=== PATIENT | male | born 1935 | race Caucasian/White ===

== ENCOUNTER → 2017-01-25 | Day surgery (SDC) | payer OTHER ==
[2017-01-24 15:16] VITALS: Ht 172.7 cm; Wt 79.5 kg
[~2017-01-25] VITALS: Ht 172.7 cm; Wt 79.5 kg
[~2017-01-25] MED LIST: AMIT25TA9 PO; ASPI81TA28 PO; BRIM0.2S OPR; INUL6.5C PO; LIDOCAINE HCL 2% 2 ML VIAL (20MG/ML) ONE; LISI10TA PO; OMEP40CA41 PO; PROPOFOL IV EMULSION 10 MG/ML 20 ML VIAL IV ONE; SODIUM CHLORIDE 0.9% 500ML 500 ML IV ONE
--- NOTE | 2017-01-25 13:12 | Endo History and Physical ---
History & Physical Date of Service: Jan 25, 2017. Chief Complaint: CHANGE IN STOOL CALIBER Referring Physician: DR. LOPEZ History of Present Illness change in stools Past Surgical History Hx Cardiac Surgery: No Hx Internal Defibrillator: No Hx Pacemaker: No Hx Abdominal Surgery: Yes (APPY) Hx of Implantable Prosthesis: No Hx Post-Op Nausea and Vomiting: No Hx Cancer Surgery: No Hx Thoracic Surgery: No Hx Orthopedic: Yes (LEFT QUAD REPAIR) Hx Urinary Tract Surgery: No Family History IBD Social History Smoking Status: Former Smoker Hx Substance Use: No Hx Alcohol Use: Yes (3 DRINKS OF GIN DAILY) Allergies Coded Allergies: Azithromycin (Verified Allergy, Unknown, FELT UNCOMFORTABLE WHEN TAKING, ) Sildenafil (Verified Allergy, Unknown, HEADACHE, 01/25/17) Current Medications Reported Home Medications Medications Dose Route/Sig Max Daily Dose Days Date Category Elavil (Amitriptyline Hcl) 25 Mg Tab 50 Mg PO HS 01/24/17 Reported Aspirin Ec (Aspirin) 81 Mg Tab 81 Mg PO QAM 03/16/14 Reported Prilosec (Omeprazole) 40 Mg Cap 40 Mg PO BID 03/16/14 Reported Prinivil (Lisinopril) 10 Mg Tab 10 Mg PO HS 12/15/12 Reported Combigan (Brimonidine Tartrate-Timolol M) 1 Lucie Lucie 1 Drop OPR BID 12/15/12 Reported Vital Signs Weight (Kilograms): 79.55 Height (Feet): 5 Height (Inches): 8 Date Time Temp Pulse Resp B/P Pulse Ox O2 Delivery O2 Flow Rate FiO2 01/25/17 12:53 36.7 57 16 160/87 95 Physical Exam General Appearance: no apparent distress Respiratory/Chest: Auscultation: breath sounds normal Cardiovascular: Heart Auscultation: RRR Abdomen: Liver: non-tender Assessment and Plan stable for colonoscopy
--- NOTE | 2017-01-25 13:32 | Discharge Instructions ---
Endoscopy Patient Instructions Date / Procedure(s) Performed Jan 25, 2017. Colonoscopy Allergy Information Coded Allergies: Azithromycin (Verified Allergy, Unknown, FELT UNCOMFORTABLE WHEN TAKING, ) Sildenafil (Verified Allergy, Unknown, HEADACHE, 01/25/17) Discharge Date / Findings Jan 25, 2017. diverticulosis otherwise normal Medication Instructions Stopped Medication(s): ASPIRIN 01/24/17 Provider Instructions Activity Restrictions - No exercising or heavy lifting for 24 hours. - Do not drink alcohol the day of the procedure. - Do not drive a car or operate machinery until the day after the procedure. - Do not make any important decisions or sign important papers in 24 hours after the procedure. Following Day: - Return to full activity which may include returning to work/school. Diet Start your diet with liquids and light foods (jello, soup, juice, toast). Then eat your usual diet if not nauseated. Treatment For Common After Affects For mild abdominal pain, bloating, or excessive gas: - Rest - Eat lightly - Lie on right side Follow-Up Information Follow-up with DR. LOPEZ as scheduled Anesthesia Information What You Should Know You have had a procedure that required some medicine to reduce anxiety and discomfort. This treatment is called moderate sedation. After receiving the treatment, you may be sleepy, but you will be able to breathe on your own. The effects of the treatment may last for several hours. Follow these instructions along with Activity/Diet recommendations noted above: * Do NOT do anything where dizziness or clumsiness would be dangerous. * Rest quietly at home today, then you can be up and about tomorrow. * Have a responsible person stay with you the rest of today. * You may have had an I.V. today. If so, you may take the dressing off later today. Recommendations Call your doctor if: * Trouble breathing * Continuous vomiting for more than 24 hours * Temperature above 101 degrees * Severe abdominal pain or bloating * Pain not relieved by pain medicine ordered * There is increased drainage or redness from any incision * A large amount of rectal bleeding greater than 2-3 tablespoons. (If you had a polyp/s removed or have hemorrhoids, a small amount of blood - from the rectum is to be expected.) * You have any unanswered questions or concerns. IN THE EVENT OF A SERIOUS EMERGENCY, GO TO THE NEAREST EMERGENCY ROOM Your discharge instructions were prepared by provider Armani Hernandez. Patient Instructions Signature Page Marv Fragoso Patient (or Guardian) Signature/Date: I have read and understand the instructions given to me by my caregivers. Caregiver/RN/Doctor Signature/Date: The above-named patient and/or guardian has received patient instructions on this date. + Original Patient Signature Page (only) stays with chart. Please make copy for patient.
--- NOTE | 2017-01-25 13:35 | GI REPORT ---
Procedure Date: 01/25/2017 12:48 PM Procedure: Colonoscopy Indications: Change in bowel habits, Change in stool caliber Medicines: See the Anesthesia note for documentation of the administered medications Complications: No immediate complications. Estimated Blood Loss: Estimated blood loss: none. Procedure: Pre-Anesthesia Assessment: - Prior to the procedure, a History and Physical was performed, and patient medications, allergies and sensitivities were reviewed. The patient's tolerance of previous anesthesia was reviewed. - The risks and benefits of the procedure and the sedation options and risks were discussed with the patient. All questions were answered and informed consent was obtained. - Patient identification and proposed procedure were verified prior to the procedure by the physician and the nurse. The procedure was verified in the pre-procedure area. - Pre-procedure physical examination revealed no contraindications to sedation. - After reviewing the risks and benefits, the patient was deemed in satisfactory condition to undergo the procedure. After I obtained informed consent, the scope was passed under direct vision. Throughout the procedure, the patient's blood pressure, pulse, and oxygen saturations were monitored continuously. The Scope was introduced through the anus and advanced to the terminal ileum, with identification of the appendiceal orifice and IC valve. The colonoscopy was performed without difficulty. The patient tolerated the procedure well. The quality of the bowel preparation was good. Findings: The perianal and digital rectal examinations were normal. The terminal ileum appeared normal. Multiple small and large-mouthed diverticula were found in the sigmoid colon and in the descending colon. The exam was otherwise without abnormality on direct and retroflexion views. Impression: - The examined portion of the ileum was normal. - Diverticulosis in the sigmoid colon and in the descending colon. - The examination was otherwise normal on direct and retroflexion views. - No specimens collected. Recommendation: - Discharge patient to home. - I do not recommend a repeat colonoscopy in 10 years for screening. Armani Hernandez M.D. Armani Hernandez MD 01/25/2017 1:34:41 PM This report has been signed electronically. Note Initiated On: 01/25/2017 12:48 PM I attest to the content of the Intraoperative Record and orders documented therein, exceptions below
--- NOTE | 2017-01-25 13:54 | Anesthesiology Progress Note ---
Anesthesia Post Op Note Date & Time Jan 25, 2017 at 13:53 Vital Signs Pain Intensity: 0 Vital Signs Past 12 Hours Date Time Temp Pulse Resp B/P Pulse Ox O2 Delivery O2 Flow Rate FiO2 01/25/17 13:40 36.7 58 16 99/52 95 01/25/17 12:53 36.7 57 16 160/87 95 Notes Mental Status: alert / awake / arousable, participated in evaluation Pt Amnestic to Procedure: Yes Nausea / Vomiting: adequately controlled Pain: adequately controlled Airway Patency, RR, SpO2: stable & adequate BP & HR: stable & adequate Hydration State: stable & adequate Anesthetic Complications: no major complications apparent
[2017-01-25 14:06] VITALS: BP 108/72; PULSE 56; O2SAT 96
== END | disposition home or self-care (01) ==
LOC: C.GI 12:21
PROVIDERS: ATTEND Internal Medicine Gastroenterology
DX: R19.4 Change in bowel habit (principal); Z87.891 Personal history of nicotine dependence; K57.90 Diverticulosis of intestine, part unspecified, without perforation or abscess without bleeding

== ENCOUNTER 2024-10-05 09:55 | Inpatient (IN) ==
--- NOTE | 2024-10-05 10:13 | Emergency Department Note ---
Impression & Plan Syncope, Closed head injury, Elevated WBC count ED Provider Note Name: SIGIFREDO SOLORIO Age: 89 Sex: Male Arrives Via: Ambulance Informant: Patient ED Provider: Sam Wilson MD Chief Complaint: Weakness Impression: As per impressions above Medical Decision Makin-year-old gentleman arrives for evaluation of generalized weakness and then a syncopal event this morning. Past medical history including CLL and is also on Eliquis. Patient arrives mildly hypotensive dehydrated.. Given 1 L normal saline with vast improvement looks well good blood pressure. Laboratory workup remarkable for an elevated white blood cell count. He is afebrile without any other concerning evidence of infection at this time. His chest x-ray is clear his urine is unremarkable and he has a soft nontender abdomen with no other focal symptoms beyond he has had an upper respiratory type illness for the last 9 days. No evidence of need for empiric antibiotics at this time until further evaluation. I do not feel he is septic but that hypotension is more likely dehydrational which is also the cause of the syncope. That said he will be hospitalized for further monitoring and management. Triage/Nursing Notes reviewed by Me Differential:Vasovagal event, dehydration, infection, hypoglycemia, electrolyte abnormalities, cardiac sources, intracerebral event, pulmonary embolism, seizure, toxicologic, neurologic, as well as other pathologies. Vital Signs: reviewed and remarkable for hypotension on arrival Interventions: 1 L NSS bolus Labs:ED labs Reviewed by me and remarkable for mild white blood cell count elevation Imagin view chest x-ray as per my interpretation no infiltrate or effusion appreciated. CT of the head without contrast as per my interpretation informally reveals no evidence of intracranial hemorrhage or mass effect. EKG:As per my interpretation. Indication syncope. Atrial fibrillation 80 bpm QTc of 456. PACs are noted. No ischemia appreciated. When compared to EKG of 04/29/2024 no significant change. Cardiac/Tele Monitoring: Cardiac Monitoring: An Order was placed for continuous cardiac monitoring. The monitor shows a rate of 80 with a afib rhythm. Consults:Discussed with hospital service for further management. Plan: Disposition:Hospitalization. Condition: Good History of Present Illness: 89-year-old gentleman arrives for evaluation of syncope. Patient with upper respiratory type illness and cough for the last 9 days. Gradually worsening. Very weak the last 2 to 3 days. This morning was sitting on the toilet and could not even stand up he was so weak. Family is unable to get him up. They note he was a bit confused. EMS arrived to help stand him and he had a syncopal event. Brief for few seconds before coming to. This happened a second time and route. Patient denies any chest pain, shortness of breath. He has had nothing to eat this morning may not have eaten last evening. Notes he just feels tired. Denies any chest pain, palpitations, nausea, vomiting, abdominal pain, back pain or other concerning signs or symptoms. notes he has been quite weak for the last few months. He had an issue with his right arm 2 weeks ago for which she was treated with prednisone with improvement. He is on 5 mg prednisone daily as it is for his PMR. He is also on Eliquis. He denies any black or bloody stools. He is not having any epigastric pain. Denies any falls, trauma, injuries. Past Medical History:See Below Home Medications:See Below Allergies:sildenafil Vitals:Blood Pressure: 94/40, Pulse 74, RR 16, T 36.5C, O2 96% on RA Physical Exam: GENERAL: Patient is tired/dehydrated appearing and in mild distress. RESPIRATORY: No dyspnea. Clear to auscultation and equal bilaterally. CARDIOVASCULAR: Regular rate and rhythm.No murmur appreciated. GASTROINTESTINAL: Abdomen soft, non-tender, no peritonitis. EXTREMITIES: Normal motion all extremities, no cyanosis, no edema. NEUROLOGIC: Alert and oriented. No focal neurologic deficits appreciated SKIN: No rash, no jaundice, no diaphoresis. PSYCH: Appropriate GCS: 15 ED Course: Times/Reassessments: Significant improved with IV fluids breathing comfortably in no distress Sam Wilson MD Past Med/Surg History Problem List (Updated 10/06/24 @ 08:55 by Sam Wilson MD) Elevated WBC count (Acute) Closed head injury (Acute) Chronic anemia Edema of right foot Syncope (Acute) CLL (chronic lymphocytic leukemia) Right lower lobe pulmonary nodule Right middle lobe pneumonia Hip abductor tendinitis Constipation (Acute) Constipation (Acute) Medical History (Updated 10/06/24 @ 08:55 by Sam Wilson MD) HTN (hypertension) PMR (polymyalgia rheumatica) PAF (paroxysmal atrial fibrillation) Dyslipidemia SSS (sick sinus syndrome) CKD (chronic kidney disease), stage III GERD (gastroesophageal reflux disease) Surgical History S/P placement of cardiac pacemaker History of tonsillectomy History of appendectomy Family History Other Cancer FHx: alcoholism Social History (Updated 10/05/24 @ 14:07 by Henrietta Cordero PA-C) Smoking Status: Former smoker Hx Alcohol Use: No Hx Substance Use: No Preferred Language: Faroese [employer]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 Beliefs That Will Affect Care: None Current Living Situation: Spouse Feels Safe at Home: Yes Assistive Devices: Denture - Upper, Denture - Lower and Glasses Allergies Allergies Allergy/AdvReac Type Severity Reaction Status Date / Time lisinopril Allergy angioedema Verified 10/05/24 12:26 sulfamethoxazole Allergy angioedema Verified 10/05/24 12:26 [From Bactrim] trimethoprim [From Bactrim] Allergy angioedema Verified 10/05/24 12:26 sildenafil AdvReac Intermediate HEADACHE Verified 11/16/21 12:03 Home Meds Home Medications Medication Instructions Recorded Confirmed brimonidine 0.2 %-timolol 0.5 % 1 drp OPR BID 10/19/18 10/05/24 eye drops (Combigan) omeprazole 40 mg capsule,delayed 40 mg PO BID 10/19/18 10/05/24 release ibrutinib 140 mg capsule 420 mg PO DAILY chemo 11/16/21 10/05/24 (Imbruvica) atorvastatin 20 mg tablet 20 mg PO DAILY 02/15/24 10/05/24 prednisone 5 mg tablet 5 mg PO DAILY 02/15/24 10/05/24 metoprolol succinate 25 mg 25 mg PO BID 04/29/24 10/05/24 tablet,extended release 24 hr apixaban 2.5 mg tablet (Eliquis) 2.5 mg PO BID 10/05/24 10/05/24 ferrous sulfate 27 mg iron tablet 27 mg PO DAILY 10/05/24 10/05/24 hydrochlorothiazide 12.5 mg capsule 12.5 mg PO DAILY 10/05/24 10/05/24 Results & Data (ED) Vital Signs Vital Signs - 24 hr 10/05/24 10:06 10/05/24 10:06 10/05/24 10:07 Temperature 36.8 C 36.8 C Temperature Source Oral Oral Pulse Rate 88 Pulse Rate [Apical] 88 Pulse Rate from SpO2 Sensor Respiratory Rate 16 16 Blood Pressure 92/74 L Blood Pressure [Right Arm] 92/74 L Blood Pressure Mean 80 Blood Pressure Mean [Right Arm] 80 Pulse Oximetry 96 96 96 Oxygen Delivery Method Room Air Room Air Room Air Sepsis Recent Fever Within 48 Hours No Sepsis New/Unexplained Change in Mental Status No Sepsis Action Taken by Nursing No Action Required 10/05/24 10:18 10/05/24 10:44 10/05/24 11:05 Temperature Temperature Source Pulse Rate 76 86 80 Pulse Rate [Apical] Pulse Rate from SpO2 Sensor 82 79 Respiratory Rate 18 20 Blood Pressure 105/74 108/84 Blood Pressure [Right Arm] Blood Pressure Mean 84 92 Blood Pressure Mean [Right Arm] Pulse Oximetry 98 95 Oxygen Delivery Method Room Air Room Air Sepsis Recent Fever Within 48 Hours Sepsis New/Unexplained Change in Mental Status Sepsis Action Taken by Nursing 10/05/24 11:20 10/05/24 11:38 10/05/24 11:44 Temperature Temperature Source Pulse Rate 84 81 83 Pulse Rate [Apical] Pulse Rate from SpO2 Sensor 77 82 Respiratory Rate 21 24 19 Blood Pressure 114/87 116/83 116/81 Blood Pressure [Right Arm] Blood Pressure Mean 96 94 92 Blood Pressure Mean [Right Arm] Pulse Oximetry 95 97 96 Oxygen Delivery Method Room Air Room Air Room Air Sepsis Recent Fever Within 48 Hours Sepsis New/Unexplained Change in Mental Status Sepsis Action Taken by Nursing 10/05/24 12:00 10/05/24 12:27 Temperature Temperature Source Pulse Rate 93 H 88 Pulse Rate [Apical] Pulse Rate from SpO2 Sensor 88 93 H Respiratory Rate 16 20 Blood Pressure 111/74 121/86 Blood Pressure [Right Arm] Blood Pressure Mean 86 97 Blood Pressure Mean [Right Arm] Pulse Oximetry 97 95 Oxygen Delivery Method Room Air Room Air Sepsis Recent Fever Within 48 Hours Sepsis New/Unexplained Change in Mental Status Sepsis Action Taken by Nursing Laboratory Data 10/06/24 07:18 10/06/24 07:18 Lab Results 10/05/24 10/05/24 10/05/24 Range/Units 10:08 10:30 11:20 WBC 15.60 H (4.8-10.8) K/ul RBC 3.49 L (4.70-6.10) M/uL Hgb 11.1 L (14.0-18.0) g/dl Hct 32.6 L (42.0-52.0) % MCV 93.4 (80.0-100.0) fL MCH 31.8 (25.0-34.0) pg MCHC 34.0 (32.0-36.0) g/dL RDW Std Deviation 45.5 (36.4-46.3) fL RDW Coeff of Leonardo 13.4 (11.5-14.5) % Plt Count 281 (130-400) K/uL MPV 10.3 (9.4-12.4) fL Immature Gran % (Auto) 1.5 % Neut % (Auto) 74.3 % Lymph % (Auto) 16.5 % Humphreys % (Auto) 7.0 % Eos % (Auto) 0.3 % Baso % (Auto) 0.4 % Neut # (Auto) 11.61 H (1.40-6.50) K/uL Lymph # (Auto) 2.57 (1.20-3.40) K/uL Humphreys # (Auto) 1.09 H (0.11-0.59) K/uL Eos # (Auto) 0.04 (0.00-0.50) K/uL Baso # (Auto) 0.06 (0.00-0.20) K/uL Immature Gran # (Auto) 0.23 H (0.01-0.20) K/uL ESR 57 H (0-20) mm/hr Sodium 131 L (136-145) mmol/L Potassium 4.0 (3.5-5.1) mmol/L Chloride 97 L (98-107) mmol/L Carbon Dioxide 26 (21-32) mmol/L Anion Gap 8 (3-11) BUN 20 (6-23) mg/dl Creatinine 1.16 (0.6-1.4) mg/dl Est Cr Clr Drug Dosing 47.0 ml/min eGFR 60.96 BUN/Creatinine Ratio 17.2 (10-20) Glucose 111 H (70-99(Fasting)) mg/dl Uric Acid 5.6 (2.6-7.2) mg/dl Calcium 8.4 L (8.6-10.3) mg/dl Magnesium 1.8 (1.7-2.4) mg/dl Total Bilirubin 0.8 (0.2-1.0) mg/dl Direct Bilirubin 0.2 (0-0.2) mg/dl AST 32 (13-39) U/L ALT 50 (7-52) U/L Alkaline Phosphatase 81 (34-104) U/L Total Creatine Kinase 13 L (30-223) U/L Troponin I High Sens 9.7 (0-20) pg/ml C-Reactive Protein 7.52 H (0-0.5) mg/dl Total Protein 5.6 L (6.0-8.3) gm/dl Albumin 3.1 L (3.4-5.0) gm/dl Procalcitonin 0.50 (0-0.5) ng/ml TSH 2.668 (0.300-4.500) uIu/ml Urine Color Yellow Urine Appearance Clear (Clear) Urine pH 8.0 H (4.5-7.5) Ur Specific [place]ell 1.016 (1.000-1.030) Urine Protein Negative (Negative) Urine Glucose (UA) Negative (Negative) Urine Ketones Negative (Negative) Urine Blood Negative (Negative) Urine Nitrite Negative (Negative) Urine Bilirubin Negative (Negative) Urine Urobilinogen Negative (Negative) Ur Leukocyte Esterase Negative (Negative) Anaplasma Smear See Comment Babesia Smear See Comment Lyme Disease Screen Negative (Negative) SARS-CoV-2 (PCR) NEGATIVE (Negative) Influenza Type A (PCR) Negative (Neg) Influenza Type B (PCR) Negative (Neg) RSV (RT-PCR) Negative (Neg) Administered Medications Apixaban (Apixaban 2.5 Mg Tab) 2.5 mg PO BID [facility] Stop: 11/04/24 20:59 Last Admin: 10/05/24 23:16 Dose: 2.5 mg Documented By: PB Brimonidine Tartrate (Brimonidine Tartrate 0.2% 5ml) 1 drops OP BID [facility] Stop: 11/04/24 20:59 Last Admin: 10/05/24 23:21 Dose: 1 drops Documented By: PB Sodium Chloride (Nss) 1,000 mls @ 80 mls/hr IV .[id number] [facility] Stop: 10/06/24 14:14 Last Admin: 10/06/24 05:15 Dose: 80 mls/hr Documented By: Infusion: 10/06/24 05:05 Dose: Infused Documented By: Admin: 10/05/24 16:35 Dose: 80 mls/hr Documented By: ERIS Melatonin (Melatonin 3 Mg Tab) 3 mg PO HS PRN PRN Reason: Sleep Stop: 11/04/24 22:43 Last Admin: 10/05/24 23:16 Dose: 3 mg Documented By: PB Metoprolol Succinate (Metoprolol Succ 25mg Ext Rel Tab) 25 mg PO BID [facility] Stop: 11/04/24 20:59 Last Admin: 10/05/24 23:16 Dose: 25 mg Documented By: PB Miscellaneous (Ibrutinib [Imbruvica] ~ Order Awaiting Action) 1 each N/A QS [facility] Stop: 11/04/24 15:59 Last Admin: 10/05/24 23:39 Dose: Not Given Documented By: Admin: 10/05/24 16:33 Dose: Not Given Documented By: ERIS Pantoprazole Sodium (Pantoprazole 40 Mg Tab) 40 mg PO BID [facility]MO Stop: 11/04/24 20:59 Last Admin: 10/05/24 23:16 Dose: 40 mg Documented By: PB Timolol Maleate (Timolol Maleate 0.5% Op Soln 5 Ml Btl) 1 drops OP BID [facility]MO Stop: 11/04/24 20:59 Last Admin: 10/05/24 23:17 Dose: 1 drops Documented By: PB Discontinued Medications Apixaban (Apixaban 2.5 Mg Tab) 2.5 mg PO ONE ONE Stop: 10/05/24 13:39 Last Admin: 10/05/24 14:41 Dose: 2.5 mg Documented By: QGV Sodium Chloride (Nss) 1,000 mls @ 999 mls/hr IV .Q1H1M ONE Stop: 10/05/24 11:06 Last Infusion: 10/05/24 12:18 Dose: Infused Documented By: Admin: 10/05/24 10:40 Dose: 999 mls/hr Documented By: QGV Prednisone (Prednisone 5 Mg Tab) 15 mg PO NOW ONE Stop: 10/05/24 14:01 Last Admin: 10/05/24 14:40 Dose: 15 mg Documented By: QGV Imaging Data Radiologist's Impression: Chest X-Ray 10/05/24 10:06 XR chest 1V portable CLINICAL HISTORY: syncope TECHNIQUE: Single frontal radiograph of the chest was obtained. 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 The lungs are clear. No evidence of pleural effusion or pneumothorax. IMPRESSION: No acute chest disease. ACT 112: Negative or not required by law. Electronically signed by: Nilo Núñez M.D. 10/05/2024 11:[address] 10/05/24 10:06 CT head/brain wo con CLINICAL HISTORY: syncope Technique: Contiguous axial CT images of the head were acquired from the base of the skull to the vertex without intravenous contrast administration. Images were viewed in brain, subdural and bone windows. Automated dose lowering techniques and/or adjustment according to patient size were utilized for this exam. Comparison: Comparison is made to 10/19/2018 CT head Findings: The ventricles, basal cisterns, and cerebral sulci are normal. There is no acute intracranial hemorrhage or evidence of acute territorial infarction. Neither mass effect, shift of the midline structures, nor abnormal extra-axial fluid collections are shown. Imaged portions of the paranasal sinuses and mastoid air cells are clear. The orbits appear normal. There are no acute fractures of the calvaria or scalp swelling. Impression: No acute intracranial hemorrhage, no evidence of acute territorial infarction or other acute intracranial disease process. ACT 112: Negative or not required by law. Electronically signed by: Nilo Núñez M.D. 10/05/2024 10:57 AM Discharge Plan Visit Data Chief Complaint: Syncope Stated Complaint: SYNCOPE ED Provider: Sam Wilson Discharge Problem: Syncope, Closed head injury, Elevated WBC count Patient Disposition: Admitted As Inpatient Discharge Instructions Interventions: ED Discharge Assessment Last Done: 10/05/24 14:30 Discharge Problem: Syncope Qualifiers: Syncope type: unspecified Qualified Code(s): R55 - Syncope and collapse Closed head injury Qualifiers: Encounter type: initial encounter Qualified Code(s): S09.90XA - Unspecified injury of head, initial encounter Elevated WBC count Qualifiers: Leukocytosis type: unspecified Qualified Code(s): D72.829 - Elevated white blood cell count, unspecified
[2024-10-05] MEDS: SODIUM CHLORIDE 0.9% 1,000 ML IV ONE (10:40)
[2024-10-05 10:43] LABS: Basophils # (auto) 0.06 K/uL (0.00-0.20); Basophils % (auto) 0.4 %; Eosinophils # (auto) 0.04 K/uL (0.00-0.50); Eosinophils % (auto) 0.3 %; Hematocrit (blood only) 32.6 % (42.0-52.0); Hemoglobin 11.1 g/dl (14.0-18.0); Immature Granulocytes # (auto) 0.23 K/uL (0.01-0.20); Immature Granulocytes % (auto) 1.5 %; Lymphocytes # (auto) 2.57 K/uL (1.20-3.40); Lymphocytes % (auto) 16.5 %; Mean Corpuscular Hemoglobin 31.8 pg (25.0-34.0); Mean Corpuscular Volume 93.4 fL (80.0-100.0); Mean Platelet Volume 10.3 fL (9.4-12.4); Monocytes # (auto) 1.09 K/uL (0.11-0.59); Neutrophils # (auto) 11.61 K/uL (1.40-6.50); Neutrophils % (auto) 74.3 %; Platelet Count 281 K/uL (130-400); RDW Coefficient of Variation 13.4 % (11.5-14.5); RDW Standard Deviation 45.5 fL (36.4-46.3); Red Blood Count 3.49 M/uL (4.70-6.10)
[2024-10-05 10:50] LABS: Albumin Level 3.1 gm/dl (3.4-5.0); BUN Creatinine Ratio 17.2 (10-20); Bilirubin Direct 0.2 mg/dl (0-0.2); Bilirubin,Total 0.8 mg/dl (0.2-1.0); Calcium 8.4 mg/dl (8.6-10.3); Magnesium 1.8 mg/dl (1.7-2.4); Total Protein 5.6 gm/dl (6.0-8.3)
[2024-10-05 10:55] LABS: Troponin I High Sensitivity 9.7 pg/ml (0-20)
--- NOTE | 2024-10-05 10:59 | CT Scan Report ---
CT head/brain wo con CLINICAL HISTORY: syncope Technique: Contiguous axial CT images of the head were acquired from the base of the skull to the rolo berhane without intravenous contrast administration. Images were viewed in brain, subdural and bone [facility]. Automated dose lowering techniques and/or adjustment according to patient size were utilized for this exam. Comparison: Comparison is made to 10/19/2018 CT head Findings: The ventricles, basal cisterns, and cerebral sulci are normal. There is no acute intracranial hemorrh age or evidence of acute territorial infarction. Neither mass effect, shift of the midline structures , nor abnormal extra-axial fluid collections are shown. Imaged portions of the paranasal sinuses and mastoid air cells are clear. The orbits appear normal. There are no acute fractures of the calvaria or scalp swelling. Impression: No acute intracranial hemorrhage, no evidence of acute territorial infarction or other acute intracra nial disease process. ACT 112: Negative or not required by law. Electronically signed by: Nilo Núñez M.D. 10/05/2024 10:57 AM
[2024-10-05 11:05] LABS: Thyroid Stimulating Hormone 2.668 uIu/ml (0.300-4.500)
--- NOTE | 2024-10-05 11:19 | XRay Report ---
XR chest 1V portable CLINICAL HISTORY: syncope TECHNIQUE: Single frontal radiograph of the chest was obtained. 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 The lungs are clear. No evidence of pl eural effusion or pneumothorax. IMPRESSION: No acute chest disease. ACT 112: Negative or not required by law. Electronically signed by: Nilo Núñez M.D. 10/05/2024 11:17 AM
[2024-10-05 11:33] LABS: Influenza A virus by PCR Negative (Neg); Influenza B virus by PCR Negative (Neg); RSV by PCR Negative (Neg); SARS CoV2 RNA(COVID-19) Ceph NEGATIVE (Negative)
[2024-10-05 11:43] LABS: Appearance Urine Clear (Clear); Bilirubin Urine Negative (Negative); Blood Urine Negative (Negative); Color Urine Yellow; Glucose Urine UA Negative (Negative); Ketones Urine Negative (Negative); Leukocyte Esterase Urine Negative (Negative); Nitrite Urine Negative (Negative); Protein Urine Negative (Negative); Specific Gravity Urine 1.016 (1.000-1.030); Urobilinogen Urine Negative (Negative)
--- OUTSIDE RECORDS SUMMARY | 2024-10-05 12:31 | External Medical Summary | Summary of Care ---
Author Name Unknown Organization [facility] Address [address] [place] [address] Phone [phone] Care Team Providers Care Supervisor Assembling Name Role Phone Amos Pastrana MD Primary Care Provider + Reason for Visit * Reason Comments Acute Pt being seen for Lt hand swelling ands woke up with pain in wrist and keep getting bigger. Had recent lyme and cold and has increase fatigue and sleeping more then in past. Encounter Details Date Type Department Care Team (Late st Contact Info) Description 09/27/2024 2:00 PM EST Office Visit [facility] [address] [facility] [place] [address] Manuel Fox MD [address] [place] [address] [place] [id number] PMR (polymyalgia rheumatica) ([facility])* Allergies Active Allergy Reactions Criticality Noted Date Comments Azithromycin Unknown Medium 11/04/2016 Pt states that he felt uncomfortable with this medication, and doesn't want to take it again Sulfamethoxazole-Tri methoprim Edema face/lips/tongue High 11/25/2021 Large angioedema 11/2021 (unclear if from bactrim or lisinopril) Lisinopril Cough 11/25/2021 Zoledronic Acid 02/07/2023 Severe muscle pain Sildenafil Citrate Abdominal pain,Neuro complications (Please comment) 06/26/2013 "Viagra" headaches documented as of this encounter (statuses as of 09/27/2024) Medications COMBIGAN 0.2-0.5 % OP SOLN Instill 1 Drop into the right eye in the morning and 1 Drop before bedtime. Active Centrum Adults Oral Tablet 1 tab daily 1 Tablet 3 Active predniSONE 5 MG Oral Tablet (Deltasone)Indic ations:PMR (polymyalgia rheumatica) ([facility]) Take 1 Tablet by mouth in the morning. 90 Tablet 3 4 Active Metoprolol Succinate ER 25 MG Oral Tablet Extended Release 24 Hour (toPROL XL)Indications:P aroxysmal atrial fibrillation ([facility]),Cardiac pacemaker in situ,SSS (sick sinus syndrome) ([facility]),RBBB (right bundle branch block),HTN, goal below 140/90 Take 1 Tablet by mouth in the morning and 1 Tablet before bedtime. 180 Tablet 3 4 Active Ibrutinib 140 MG Oral Capsule (Imbruvica)Indic ations:CLL (chronic lymphocytic leukemia) ([facility]) TAKE 3 CAPSULES BY MOUTH IN THE MORNING. TAKE MEDICATION AT SAME TIME EVERY DAY 90 Capsule 5 09/26/2024 2:49 PM EST 4 025 Active hydroCHLOROthiaz maryse 12.5 MG Oral CapsuleIndicatio ns:HTN, goal below 150/90 Take 1 Capsule by mouth in the morning. 30 Capsule 5 4 Active Atorvastatin Calcium 20 MG Oral Tablet (Lipitor)Indicat ions:Dyslipidemi a, goal LDL below 100 TAKE 1 TABLET BY MOUTH EVERY DAY 90 Tablet 4 Active Apixaban 2.5 MG Oral Tablet (Eliquis) Take 1 Tablet by mouth in the morning and 1 Tablet before bedtime. 4 Active Omeprazole 20 MG Oral Capsule Delayed Release (PriLOSEC) Take 1 Capsule by mouth in the morning and 1 Capsule before bedtime. 60 Capsule 3 4 Active predniSONE 20 MG Oral Tablet (Deltasone)Indic ations:PMR (polymyalgia rheumatica) ([facility]) Take 1 Tablet by mouth in the morning for 5 days. 5 Tablet 4 024 Active Losartan Potassium 50 MG Oral Tablet (Cozaar) Take 1 Tablet by mouth in the morning. 30 Tablet 5 4 024 Discontin ued(Adver se reaction) Benzonatate 100 MG Oral Capsule (Tessalrick Perledith)Indicatio ns:Acute cough Take 1 Capsule by mouth 3 times a day as needed for Cough. Do not cut, crush, or chew. 30 Capsule 4 024 Discontin ued(End of Procedure ) documented as of this encounter (statuses as of 09/27/2024) Active Problems Problem Noted Date Diagnosed Date Chronic kidney disease, stage 3a 08/22/2023 Overview: Per CKD protocol Recurrent cellulitis of lower leg 03/21/2023 Iron deficiency anemia 12/20/2022 Sinus bradycardia 12/07/2022 Age-related osteoporosis wit hout current pathological fracture 11/25/2022 History of 2019 novel coronavirus disease (COVID -19) 10/28/2022 Overview (10/28/2022): 11/01 PMR (polymyalgia rheumatica) 05/25/2022 Primary osteoarthritis of right knee 11/10/2021 Aldrich's cyst of knee, right 11/10/2021 Sinus node dysfunction 11/10/2021 Thoracic aortic aneurysm without rupture 019 Overview (05/09/2019): 04/[address] surg Vitamin B12 deficiency (dietary) anemia 09/01/20 18 CLL (chronic lymphocytic leukemia) 07/18/2017 Overview (07/18/2017): Dx 2017-Flow cytometric analysis of the peripheral blood indicates a B-cell lymphoid neoplasm, consistent with chronic lymphocytic leukemia / small lymphocytic lymphoma (B-CLL/SLL). The absence of CD38 expression by the vast majority of the B-cells is considered a favorable prognostic sign. PHENOTYPE: Lymphocytes account for 61% of total events. The majority of the lymphocytes are B-cells. Most of the B-cells lack surface light chain expression. There is coexpression of CD5, CD23 (partial) and CD43. FMC-7 is not expressed by these B-cells. The expression of CD20 is not strong. CD38 is mostly not expressed by the B-cells (<20% expression). Dyslipidemia 01/27/2016 HTN, goal below 140/90 11/30/2013 Lung nodule 10/30/2012 Overview (10/22/2018): RLL. Stable [id number]. 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 Consider lulu 5y. 03/24- EGD-stage C0-M1 per [place] criteria. No dysplasia. REC LULU 03/2018 Other specified glaucoma Generalized osteoarthritis Irritable bowel syndrome documented as of this encounter (statuses as of 09/27/2024) Resolved Problems Problem Noted Date Diagnosed Date Resolved Date Recurrent cellulitis 04/19/2023 023 Right leg swelling 03/01/2023 3 Cellulitis of right lower extremity 02/22/2023 03/21/2023 Cutaneous abscess of left lower extremity 11/10/2021 12/07/2022 B12 deficiency 09/05/2018 11/03/2018 Overview (09/05/2018): 08/27 start IM B12 Prediabetes 01/16/2018 05/26/2021 Lymphadenopathy of head and neck 05/26/2017 01/07/2020 Lingual tonsil hypertrophy 05/26/2017 0 01/07/2020 Pruritus ani 01/11/2014 04/28/2017 Anal lesion 11/30/2013 04/28/2017 Overview (11/30/2013): 11/23 refer surg eval Former smoker 10/15/2013 01/07/2020 Well adult exam 10/30/2012 07/29/2023 Overview (06/15/2023): 05/31 normal EF. grad1 Galan. Mild-mod AR. Aortic diam 4.6cm per CT surg, ok to d/c monitoring '04/27 4.9cm ascending thoracic aorta, root 4.4cm. Refer Dr Winkler Thoracic . 10/28 4.6 thror aneurysm on [facility] CT--TTE orderd for 6mo 2017-f [facility] copy on file 01/24 colon-WNL 01/22 ACC risk 24% declined statin. / PFTs WNL 06/22 colonoscopy WNL. +int hemorrhoids, divertic. 12/20 fell on ice-UOC rec tendon repair knee 10/22 pt declined prostate screen Bradycardia 10/30/2012 01/07/2020 Dyslipidemia 10/05/2021 Rotator cuff injury 04/28/20 17 Overview (09/06/2012): right documented as of this encounter (statuses as of 09/27/2024) Immunizations Name Administration Dates Next Due COVID-19 mRNA, LNP-s, No Pre serve, 2-Dose Series (Moderna) 11/19/2021,05/25/2021,12/09/2020,11/04 COVID-19, MRNA-LNP, 24-25, P R, 30MCG/0.3ML, IM, 12YRS AND ABOVE (Pfizer-Comirnaty) 06/12/2024 COVID-19, MRNA-LNP, PF, 30 M CG/0.3 mL, 12 YRS AND ABOVE, IM (PFIZER-Comirnaty) 07/02/2023 COVID-19, MRNA-LNP, PF, 50 M CG/0.5 mL, 12 YRS AND ABOVE, IM (MODERNA-Spikevax) 12/24/2023 Covid-19, Mrna, Lnp-s, Pf, B ivalent, 30 Mcg, IM, 12 yrs and above (Pfizer) 02/24/2023,07/01/2022 Pneumococcal Conjugate Vacc, 13 Valent (Prevnar) 07/25/2015 Pneumococcal Polysaccharide PPV23 (Pneumovax) 10/10/2002 Season Influenza, Quad, PF, Adjuvanted, 65+ Yrs, IM (FLUAD) 06/18/2020 Seasonal Influenza Vac., MDV , IM, 0.5 mL (Fluzone) 07/19/2014,07/10/2013,09/06/2012,08/24 Seasonal Influenza, PF, 6 M & above, IM , (FluLaval or Fluzone) 07/14/2018,07/18/2017 Seasonal Influenza, Quadriva lent Hd (Fluzone Hd) 06/12/2024,06/15/2023,06/16/2022,06/16 Seasonal Influenza, Quadriva lent, No Preserve, IM 06/30/2016,07/25/2015 Seasonal Influenza, Trivalen t, Adjuvanted, 65+ YRS, PF, (Fluad) 06/19/2019 TDAP (age 10 and older)(Boostrix) 06/30/2022, Varicella Zoster Vaccine (Adult) 10/10/2009 Zoster Vaccine Recombinant (Shingrix) 09/26/2019 ,06/19/2019 documented as of this encounter Social History Tobacco Use Types Packs/Day Years Used Date Smoking Tobacco: Former Cigarettes 0.5 28 1 11/23/1960 - 09/22/1989 Passive Smoke Exposure: Never Smokeless Tobacco: Never Alcohol Use Standard Drinks/Week Comments Yes 19 (1 standard drink = 0.6 oz pure alcohol) pt has approx 4oz gin/ every other night, wine PHQ-2 Answer Date Recorded PHQ Adult Total Score 0 01/27/2024 Hunger Vital Sign Answer Date Recorded Within the past 12 months, y ou worried that your food would run out before you got the money to buy more. Never true 10/18/19 24 Within the past 12 months, t he food you bought just didn't last and you didn't have money to get more. Never true 10/18/2023 Childcare Answer Date Recorded Do you feel overwhelmed with taking care of a child, family member or friend? No 10/18/2023 Does your family need help f inding childcare? (Household - for ages 0-17 years) Not on file 10/18/2023 Clothing Answer Date Recorded Have you been unable to get clothing when it was really needed? No 10/18/2023 Is your family able to get c lothes or diapers when needed? (Household - for ages 0-17 years) Not on file 10/18/2023 Personal Safety Answer Date Recorded Do you feel unsafe or have concerns for your saf ety? No 10/18/2023 Do you have concerns for you r family's safety? (Household - for ages 0-17 years) Not on file 10/18/2023 Utilities Answer Date Recorded Do you have trouble paying y our heating, water, or electric bill? No 10/18/2023 Is your family able to pay t he heat, water, or electric bill? (Household - for ages 0-17 years) Not on file 10/18/2023 Does your family have access to good internet? (Household - for ages 0-17 years) Not on file 10/18/2023 Employment Status Answer Date Recorded Are you unemployed or without regular income? No 10/18/2023 Does the household have a re gular source of income? (Household - for ages 0-17 years) Not on file 10/18/2023 Social Connections Answer Date Recorded How often do you feel lonely or isolated from th ose around you? Never 10/18/2023 Financial Resource Strain Answer Date R ecorded Do you have any trouble payi ng for your medications, or do you think you might in the future? No 10/18/2023 Does your family have troubl e paying for medicine? (Household - for ages 0-17 years) Not on file 10/18/2023 Transportation Needs Answer Date Record ed READ ONLY Do you have troubl e getting a ride to medical visits or work? Never True 10/18/2023 Does your family have a hard time getting a ride to doctors visits? (Household - for ages 0-17 years) Not on file 10/18/2023 Has lack of transportation k ept you from medical appointments, meetings, work, or from getting things needed for daily living? Check all that apply. (Adult - for ages 18 years and over) Not on file 10/18/2023 Do you (or your family) have trouble finding or paying for a ride (transportation)? (Household - for ages 0-17 years) Not on file 10/18/2023 Housing Stability Answer Date Recorded Do you currently live in a s helter or have no steady place to sleep at night? No 10/18/2023 READ ONLY Do you think you a re at risk of becoming homeless? No 10/18/2023 Does your family worry about paying for your home or becoming homeless? (Household - for ages 0-17 years) Not on file 0 10/18/2023 Are you homeless or worried that you might be in the future? (Adult - for ages 18 years and over) Not on file Are you (or your family) jayde eless or worried that you might be in the future? (Household - for ages 0-17 years) Not on file Food Insecurity Answer Date Recorded Do you need food for this week? No 10/18/2023 Are you able to get enough f ood for your family? (Household - for ages 0-17 years) Not on file 10/18/2023 Does your family need food t his week? (Household - for ages 0-17 years) Not on file 10/18/2023 Do you always have enough fo od for your family? (Household - for ages 0-17 years) Not on file 10/18/2023 Sex and Gender Information Value Date Recorded Sex Assigned at Male 04/04/2020 10:22 AM EDT Legal Sex Male 5:56 AM EST Gender Identity Male 04/04/2020 10:22 AM EDT Sexual Orientation Straight 04/04/2020 10 :22 AM EDT Occupation Industry Job Start Date Job End Date retired Not on file Not on file Not on file documented as of this encounter Last Filed Vital Signs Vital Sign Reading Time Taken Comments Blood Pressure 98/68 09/27/2024 2:00 PM EST Pulse 80 09/27/2024 2:00 PM EST Temperature 36.4 C (97.6 F) 09/27/2024 2:00 PM ES T Respiratory Rate 16 09/27/2024 2:00 PM EST Oxygen Saturation 98% 09/27/2024 2:00 PM EST Inhaled Oxygen Concentration - - Weight 81.6 kg (180 lb) 09/27/2024 2:00 PM EST Height - - Body Mass Index 27.37 08/08/2024 6:19 PM EDT documented in this encounter Progress Notes * Manuel Fox MD - 09/27/2024 2:01 PM EST Marv had Lyme disease in August, was treated. For the past 2 weeks maybe, the left hand has been swelling and now is painful for three days. He had to change his watch to his right wrist. Health Maintenance addressed. Vaxxed for flu and Covid, not RSV Patient Active Problem List Diagnosis Other specified glaucoma Generalized osteoarthritis Irritable bowel syndrome Carrington's esophagus Lung nodule HTN, goal below 140/90 Dyslipidemia CLL (chronic lymphocytic leukemia) (HCC) Vitamin B12 deficiency (dietary) anemia Thoracic aortic aneurysm without rupture (HCC) Primary osteoarthritis of right knee Aldrich's cyst of knee, right Sinus node dysfunction (HCC) PMR (polymyalgia rheumatica) (HCC) History of 2018 novel coronavirus disease (COVID-19) Age-related osteoporosis without current pathological fracture Sinus bradycardia Iron deficiency anemia Recurrent cellulitis of lower leg Chronic kidney disease, stage 3a (HCC) Past Medical History: Diagnosis Date Anal lesion 11/30/201311/23 refer surg eval B12 deficiency 09/05/201808/27 start IM B12 Carrington's esophagus 11/26/11 Short Segment- repeat EGD in 3 years Bradycardia 10/30/2012 CLL (chronic lymphocytic leukemia) (HCC) 07/18/2017 2017 Dyslipidemia, goal to be determined Former smoker 10/15/2013 Generalized osteoarthritis History of 2018 novel coronavirus disease (COVID-19) 10/28/202211/01 Hyperlipidemia 01/27/2016 Irritable bowel syndrome Lung nodule 70s Other specified glaucoma Prediabetes 01/16/2018 Prostatitis Pruritus ani 01/11/2014 Recurrent cellulitis of lower leg 03/21/2023 Rotator cuff injury right Sinus bradycardia 12/07/2022 Thoracic aortic aneurysm without rupture (HCC) 10/22/201804/[address] surg Past Surgical History: Procedure Laterality Date COLONOSCOPY, DIAGNOSTIC (RECTUM) 07/03/2013 COLONOSCOPY FLEXIBLE PROXIMAL DIAGNOSTIC performed by Mikel Walsh MD at ENDOSCOPY [facility] COLONOSCOPY, DIAGNOSTIC (RECTUM) 01/25/2017 diverticulosis, repeat 10 yrs/[facility] EGD, FLEXIBLE, DIAGNOSTIC 04/01/2015 Barretts, HH, repeat 3 yrs/ESOPHAGOGASTRODUODENOSCOPY (EGD), FLEXIBLE, TRANSORAL, DIAGNOSTIC performed by Mikel Walsh MD at ENDOSCOPY [facility] EGD, FLEXIBLE, DIAGNOSTIC 04/03/2018 Barretts/ESOPHAGOGASTRODUODENOSCOPY (EGD), FLEXIBLE, TRANSORAL, DIAGNOSTIC performed by Mikel Walsh MD at ENDOSCOPY [facility] OTHER 1985 compound fracture REMOVAL OF APPENDIX age 7 REMOVAL OF TONSILS, UNDER AGE 14 age 9 REMOVAL OF TONSILS, UNDER AGE 14 REPAIR/GRAFT OF THIGH MUSCLE 12/20 Dr Taylor Quad tendon repair SMALL BOWEL ENDOSCOPY W/BX 10/18/08 bxs SMALL BOWEL ENDOSCOPY W/BX 11/26/11 Short segment Barretts, repeat EGD in 3 years Review of patient's allergies indicates: Allergen Reactions Bactrim [Sulfamethoxazole-Trimethoprim] Edema face/lips/tongue Large angioedema 11/2021 (unclear if from bactrim or lisinopril) Azithromycin Unknown Pt states that he felt uncomfortable with this medication, and doesn't want to take it again Lisinopril Cough Reclast [Zoledronic Acid] Severe muscle pain Sildenafil Citrate Abdominal pain and Neuro complications (Please comment) "Viagra" headaches Social History Socioeconomic History Marital status: Spouse name: Macie Number of children: 2 Years of education: Not on file Highest education level: Not on file Occupational History Occupation: retired Comment: [employer] Tobacco Use Smoking status: Former Current packs/day: 0.00 Average packs/day: 0.5 packs/day for 28.0 years (14.0 ttl pk-yrs) Types: Cigarettes Start date: 09/22/1961 Quit date: 09/22/1989 Years since quittin.0 Passive exposure: Never Smokeless tobacco: Never Vaping Use Vaping status: Never Used Substance and Sexual Activity Alcohol use: Yes Alcohol/week: 19.0 standard drinks of alcohol Types: 3 5 oz of wine, 16 1.5 oz of liquor per week Comment: pt has approx 4oz gin/ every other night, wine Drug use: No Sexual activity: Yes Partners: Female Comment: , daughter in [facility]. 1 biol grandkids, 2step. Other Topics Concern Service Not Asked Blood Transfusions Yes Caffeine Concern Yes Comment: 1 quart black coffee/day Occupational Exposure Not Asked Hobby Hazards Not Asked Sleep Concern No Stress Concern No Weight Concern Yes Special Diet Yes Comment: Lower cholesterol foods Back Care Yes Comment: Physical Therapy for lower back pain Exercise Yes Comment: Stretching exercises r/t lower back pain Bike Helmet Not Asked Seat Belt Yes Self-Exams Not Asked Social History Narrative 2 step grandkids-[employer] student, Likes gardening. Volunteers at [employer] community [employer]. Social Needs Financial Resource Strain: Low Risk (10/18/2023) Financial Resource Strain Do you have any trouble paying for your medications, or do you think you might in the future? (Adult - for ages 18 years and over): No Does your family have trouble paying for medicine? (Household - for ages 0-17 years): Not on file Food Insecurity: No Food Insecurity (10/18/2023) Food Insecurity Do you need food for this week? (Adult - for ages 18 years and over): No Are you able to get enough food for your family? (Household - for ages 0-17 years): Not on file Does your family need food this week? (Household - for ages 0-17 years): Not on file Do you always have enough food for your family? (Household - for ages 0-17 years): Not on file Transportation Needs: No Transportation Needs (10/18/2023) Transportation Needs Do you have trouble getting a ride to medical visits or work? (Adult - for ages 18 years and over):Never True Does your family have a hard time getting a ride to doctors visits? (Household - for ages 0-17 years): Not on file Has lack of transportation kept you from medical appointments, meetings, work, or from getting things needed for daily living? Check all that apply. (Adult - for ages 18 years and over): Not on file Do you (or your family) have trouble finding or paying for a ride (transportation)? (Household - for ages 0-17 years): Not on file Social Connections: Socially Integrated (10/18/2023) Social Connections How often do you feel lonely or isolated from those around you? (Adult - for ages 18 years and over): Never Housing Stability: Low Risk (10/18/2023) Housing Stability Do you currently live in a fci or have no steady place to sleep at night? (Adult - for ages 18 years and over): No Do you think you are at risk of becoming homeless? (Adult - for ages 18 years and over): No Does your family worry about paying for your home or becoming homeless? (Household - for ages 0-17 years): Not on file Are you homeless or worried that you might be in the future? (Adult - for ages 18 years and over): Not on file Are you (or your family) homeless or worried that you might be in the future? (Household - for ages0-17 years): Not on file Current Outpatient Medications Medication Sig Dispense Refill COMBIGAN 0.2-0.5 % OP SOLN Instill 1 Drop into the right eye in the morning and 1 Drop before bedtime. Centrum Adults Oral Tablet 1 tab daily 1 Tablet 0 predniSONE 5 MG Oral Tablet (Deltasone) Take 1 Tablet by mouth in the morning. 90 Tablet 3 Metoprolol Succinate ER 25 MG Oral Tablet Extended Release 24 Hour (toPROL XL) Take 1 Tablet by mouth in the morning and 1 Tablet before bedtime. 180 Tablet 3 Ibrutinib 140 MG Oral Capsule (Imbruvica) TAKE 3 CAPSULES BY MOUTH IN THE MORNING. TAKE MEDICATION AT SAME TIME EVERY DAY 90 Capsule 5 hydroCHLOROthiazide 12.5 MG Oral Capsule Take 1 Capsule by mouth in the morning. 30 Capsule 5 Atorvastatin Calcium 20 MG Oral Tablet (Lipitor) TAKE 1 TABLET BY MOUTH EVERY DAY 90 Tablet 0 Apixaban 2.5 MG Oral Tablet (Eliquis) Take 1 Tablet by mouth in the morning and 1 Tablet before bedtime. Omeprazole 20 MG Oral Capsule Delayed Release (PriLOSEC) Take 1 Capsule by mouth in the morning and1 Capsule before bedtime. 60 Capsule 3 Losartan Potassium 50 MG Oral Tablet (Cozaar) Take 1 Tablet by mouth in the morning. (Patient not taking: Reported on 09/17/2024) 30 Tablet 5 Benzonatate 100 MG Oral Capsule (Tessalon Perles) Take 1 Capsule by mouth 3 times a day as needed for Cough. Do not cut, crush, or chew. (Patient not taking: Reported on 09/27/2024) 30 Capsule 0 No current facility-administered medications for this visit. Results for orders placed or performed in visit on 07/10/24 LIPID PANEL WITH DIRECT LDL IF TG IS HIGH Result Value Ref Range Triglycerides 137 <=174 mg/dL Cholesterol 175 <200 mg/dL HDL Cholesterol 68 >39 mg/dL Non-HDL Cholesterol 107 <=159 mg/dL LDL Cholesterol 80 <=129 mg/dL Lab Results Component Value Date/Time TSH - [facility] 1.51 09/17/2024 12:02 PM TSH - [facility] 2.11 04/22/2022 09:41 AM TSH - [facility] 1.34 10/15/2013 02:12 PM TSH - [facility] 1.52 05/12/2011 08:19 AM TSH - [facility] 1.74 04/22/2011 09:56 AM TSH - OUT[facility]IDE [facility] 3.890 10/19/2018 12:00 AM B12 was normal, iron is low CBC Results: Results for orders placed or performed in visit on 09/17/24 CBC Result Value Ref Range WBC 15.98 (H) 4.00 - 10.80 K/uL RBC 3.39 4.50 - 5.25 M/uL HGB 11.0 (L) 14.0 - 16.8 g/dL HCT 34.3 (L) 40.0 - 48.4 % MCV 101.2 82.0 - 99.5 fL MCH 32.4 27.0 - 34.0 pg MCHC 32.1 32.0 - 36.0 g/dL RDW 14.1 11.5 - 15.5 % PLT 253 140 - 400 K/uL MPV 9.9 6.6 - 11.1 fL He is taking half an iron pill for the anemia, gets constipated. O: Blood pressure 98/68, pulse 80, temperature 97.6 F (36.4 C), temperature source Tympanic, resp. rate 16, weight 180 lb (81.6 kg), SpO2 98%. Losartan is on hold His left hand if rather puffy and edematous. He is on Eliquis Not cyanotic Results for orders placed or performed in visit on 09/11/24 URIC ACID Result Value Ref Range Uric Acid 4.6 3.4 - 7.0 mg/dL A: PMR (polymyalgia rheumatica) (HCC) (Primary) - D-DIMER; Future; Expected date: 09/27/2024 - predniSONE 20 MG Oral Tablet (Deltasone); Take 1 Tablet by mouth in the morning for 5 days. This looks like gout but his uric acid has been normal Follow Up: Return if symptoms worsen or fail to improve. documented in this encounter Plan of Treatment Upcoming Encounters Date Type Department Care Team (Late st Contact Info) Description 10/23/2024 11:15 AM EST Immunization/Injecti on Hematology/Oncology Treatment, [place] [address] [place] [address] 11/06/2024 10:30 AM EST Office Visit Cardiology, [facility] [address] [facility] [place] [address] Quyen Connolly CRNP [address] [facility] [place] [id number] 11/15/2024 10:30 AM EST Office Visit Rheumatology [place] [id number] [facility] [place] [address] Mario Dover PA-C [address] [facility] [place] [address] 12/04/2024 2:00 PM EST Laboratory Laboratory [facility] [address] [place] [phone] [facility] [address] [facility] [place] [address] 12/11/2024 2:00 PM EST Office Visit Hematology/Oncology [facility] [address] [place] [phone] Jesus Penaloza MD [address] [place] [address] 02/11/2025 9:00 AM EDT Pharmacy Pharmacy Hematology Oncology [facility] [address] [place] [address] [facility] [place] [facility] [address] [place] [id number] 05/15/2025 12:00 PM EDT Office Visit Family Practice [facility] [address] [place] [address] Amos Pastrana MD [address] [place] [address] Scheduled Orders Name Type Priority Associated Diagnoses Orde r Schedule D-DIMER Lab Routine PMR (polymyalgia rheumatica) (HCC) Expected: 09/27/2024 (Approximate), Expires: 09/27/2025 Health Maintenance Due Date Last Done Comments Adult Wellness Visit 11/26/2020 11/26/2019 Carrington's Esophagus Surveilance 04/03/2021 04/03/2018, 04/03/2018, 04/01/2015, Additional history exists *BISPHONATE OR OTHER ACCEPTABLE MEDICATION NEEDED FOR OSTEOPOROSIS (REFER TO SMARTSET #1146) 12/30/2023 Albumin/Creatinine Ratio 07/29/2024 07/29/2023, 05/10 COVID-19 Vaccine ( season) 2024 06/12/2024, 12/24/2023, 07/02/2023, Additional history exists DXA Scan 11/10/2024 11/10/2022, 11/10/2022 Depression Screening 01/26/2025 01/27/2024 CKD PHOS USE SMARTSET 54998 07/10/2025 07/10/2024 CKD HGB USE SMARTSET 15350 09/17/202509/17, 09/17/2024, 09/11/2024, Additional history exists DTap/Tdap Vaccines (3 - Td or Tdap) 06/30/2032 06/30/2022, 10/30/2012 Pneumococcal Vaccine: 65+ Years Completed 07/25/2015, 10/10/2002 Zoster Vaccines Completed 09/26/2019, 06/10, 10/10/2009 Influenza Vaccine (FLU shot) Completed 12/2023, 06/15/2023, 06/16/2022, Additional history exists VITAMIN D LEVEL ONCE IN A LIFETIME-USE SMARTSET# 22396 Completed 09/17/2024, 12/16/2023, 12/17/2022 HPV (Gardasil) Vaccine Aged Out No lo nger eligible based on patient's age to complete this topic Hepatitis B Vaccine Aged Out No longe r eligible based on patient's age to complete this topic MENINGOCOCCAL (MENACTRA/MENVEO) Aged Out No longer eligible based on patient's age to complete this topic documented as of this encounter Medical Devices Not on filedocumented as of this encounter Visit Diagnoses Diagnosis PMR (polymyalgia rheumatica) (HCC)- Primary Polymyalgia rheumatica documented in this encounter Care Teams Supervisor Assembling Relationship Specialty Start Date End Date Amos Pastrana MD [address] [place] [address] PCP - General Family Medicine 04/28/24 documented as of this encounter
--- OUTSIDE RECORDS SUMMARY | 2024-10-05 12:31 | External Medical Summary | Summary of Care ---
Author Name Unknown Organization [facility] Address [address] [place] [address] Phone [phone] Care Team Providers Care Child Development Assistant Name Role Phone Amos Pastrana MD Primary Care Provider + Encounter Details Date Type Department Care Team (Late st Contact Info) Description 10/01/2024 Orders Only PATIENT PORTAL DO NOT DELETE THIS DEPT USED BY [place] [phone] Allergies Active Allergy Reactions Criticality Noted Date [...] as of this encounter (statuses as of 10/01/2024) Medications COMBIGAN 0.2-0.5 % OP SOLN Instill 1 Drop into the right eye in the morning and 1 Drop before bedtime. Active Centrum Adults Oral Tablet 1 tab daily 1 Tablet 3 Active predniSONE 5 MG Oral Tablet (Deltasone)Indica tions:PMR (polymyalgia rheumatica) ([facility]) Take 1 Tablet by mouth in the morning. 90 Tablet 3 4 Active Metoprolol Succinate ER 25 MG Oral Tablet Extended Release 24 Hour (toPROL XL)Indications:Pa roxysmal atrial fibrillation ([facility]),Cardiac pacemaker in situ,SSS (sick sinus syndrome) ([facility]),RBBB (right bundle branch block),HTN, goal below 140/90 Take 1 Tablet by mouth in the morning and 1 Tablet before bedtime. 180 Tablet 3 4 Active Ibrutinib 140 MG Oral Capsule (Imbruvica)Indica tions:CLL (chronic lymphocytic leukemia) ([facility]) TAKE 3 CAPSULES BY MOUTH IN THE MORNING. TAKE MEDICATION AT SAME TIME EVERY DAY 90 Capsule 5 09/26/2024 2:49 PM EST 4 06/07/20 25 Active hydroCHLOROthiazi de 12.5 MG Oral CapsuleIndication s:HTN, goal below 150/90 Take 1 Capsule by mouth in the morning. 30 Capsule 5 4 Active Atorvastatin Calcium 20 MG Oral Tablet (Lipitor)Indicati ons:Dyslipidemia, goal LDL below 100 TAKE 1 TABLET [...] 4 Active predniSONE 20 MG Oral Tablet (Deltasone)Indica tions:PMR (polymyalgia rheumatica) ([facility]) Take 1 Tablet by mouth in the morning for 5 days. 5 Tablet 4 10/02/20 24 Active documented as of this encounter (statuses as of 10/01/2024) Active Problems Problem Noted Date Diagnosed Date [...] Lung nodule 10/30/2012 Overview (10/22/2018): RLL. Stable [id number]. 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 Consider lulu 5y. 03/24- EGD-stage C0-M1 per [place] criteria. No dysplasia. REC LULU 03/2018 Other specified glaucoma Generalized osteoarthritis Irritable bowel syndrome documented as of this encounter (statuses as of 10/01/2024) Resolved Problems Problem Noted Date Diagnosed Date Resolved Date Recurrent cellulitis 04/19/2023 09/06/2 023 Right leg swelling 03/01/2023 3 Cellulitis [...] thror aneurysm on [facility]--TTE orderd for 6mo 2017-f [facility] [place] copy on file 01/24 colon-WNL 01/22 ACC risk 24% declined statin. 11/23 PFTs WNL 06/22 colonoscopy WNL. +int hemorrhoids, divertic. 12/20 fell on ice-UOC rec tendon repair knee 10/22 pt declined prostate screen Bradycardia 10/30/2012 01/07/2020 Dyslipidemia 10/05/2021 Rotator cuff injury 04/28/20 17 Overview (09/06/2012): right documented as of this encounter (statuses as of 10/01/2024) Immunizations Name Administration Dates Next Due COVID-19 [...] on file documented as of this encounter Plan of Treatment Upcoming Encounters Date Type Department Care Team (Late st Contact Info) Description 10/23/2024 11:15 AM EST Immunization/Injecti on Hematology/Oncology Treatment, [place] [address] [place] [phone] 11/06/2024 10:30 AM EST Office Visit Cardiology, [facility] [address] [facility] [place] [address] Quyen Connolly CRNP [address] [facility] [place] [phone] 11/15/2024 10:30 AM EST Office Visit Rheumatology [facility] [address] [place] [address] Mario Dover [place] [address] [place] [address] 12/04/2024 2:00 PM EST Laboratory Laboratory [facility] [address] [place] [phone] [place], Lab [facility] [address] [facility] [place] [address] 12/11/2024 2:00 PM EST Office Visit Hematology/Oncology [facility] [address] [place] [phone] Jesus Penaloza MD [address] [place] [address] 02/11/2025 9:00 AM EDT Pharmacy Pharmacy Hematology Oncology [facility] [address] [place] [address] [facility], [facility] Hem/Onc [address] [place] [address] 05/15/2025 12:00 PM EDT Office Visit Family Practice [facility] [address] [place] [address] Amos Pastrana MD [address] [place] [address] Health Maintenance Due Date Last Done Comments [...] Screening 01/26/2025 01/27/2024 CKD PHOS USE SMARTSET 09307 07/10/2025 07/10/2024 CKD HGB USE SMARTSET 83527 09/17/202509/17, 09/17/2024, 09/11/2024, Additional history exists DTap/Tdap Vaccines (3 - Td or Tdap) 06/30/2032 06/30/2022, 10/30/2012 Pneumococcal Vaccine: 65+ Years Completed 07/25/2015, 10/10/2002 Zoster Vaccines Completed 09/26/2019, 06/10, 10/10/2009 Influenza Vaccine (FLU shot) Completed 12/2023, 06/15/2023, 06/16/2022, Additional history exists VITAMIN D LEVEL ONCE IN A LIFETIME-USE SMARTSET# 36066 Completed 09/17/2024, 12/16/2023, 12/17/2022 HPV (Gardasil) Vaccine [...] Not on filedocumented as of this encounter Care Teams Child Development Assistant Relationship Specialty Start Date End Date Amos Pastrana MD [address] [place] [address] PCP - General Family Medicine 04/28/24 documented as of this encounter
--- OUTSIDE RECORDS SUMMARY | 2024-10-05 12:31 | External Medical Summary | Summary of Care ---
Author Name Unknown Organization [facility] Address [address] [place] [address] Phone [phone] Care Team Providers Care Package Delivery Room Service Runner Name Role Phone Amos Pastrana MD Primary Care Provider + Reason for Visit * Reason Onset Date Comments Test Results 10/02/2024 Encounter Details Date Type Department Care Team (Late st Contact Info) Description 10/02/2024 Telephone General Internal Medicine [facility] [address] [facility] [place] [address] Jasmin Fabian PA-C [address] [place] [address] Test Results Allergies Active Allergy Reactions Criticality Noted Date [...] as of this encounter (statuses as of 10/02/2024) Medications COMBIGAN 0.2-0.5 % OP SOLN Instill 1 Drop into the right eye in the morning and 1 Drop before bedtime. Active Centrum Adults Oral Tablet 1 tab daily 1 Tablet 3 Active predniSONE 5 MG Oral Tablet (Deltasone)Indica tions:PMR (polymyalgia rheumatica) ([facility]) Take 1 Tablet by mouth in the morning. 90 Tablet 3 4 Active Metoprolol Succinate ER 25 MG Oral Tablet Extended Release 24 Hour (toPROL XL)Indications:Pa roxysmal atrial fibrillation ([facility]),Cardiac pacemaker in situ,SSS (sick sinus syndrome) ([facility]),RBBB (right bundle branch block),HTN, goal below 140/90 Take 1 Tablet by mouth in the morning and 1 Tablet before bedtime. 180 Tablet 3 4 Active Ibrutinib 140 MG Oral Capsule (Imbruvica)Indica tions:CLL (chronic lymphocytic leukemia) ([facility]) TAKE 3 CAPSULES BY MOUTH [...] MG Oral Tablet (Deltasone)Indica tions:PMR (polymyalgia rheumatica) ([facility]) Take 1 Tablet by mouth in the morning for 5 days. 5 Tablet 4 10/02/20 24 Active documented as of this encounter (statuses as of 10/02/2024) Active Problems Problem Noted Date Diagnosed Date [...] surg Vitamin B12 deficiency (dietary) anemia 09/01/20 CLL (chronic lymphocytic leukemia) 07/18/2017 Overview (07/18/2017): [...] Lung nodule 10/30/2012 Overview (10/22/2018): RLL. Stable [id number]. 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 Consider lulu 5y. 03/24- EGD-stage C0-M1 per [place] criteria. No dysplasia. REC LULU 03/2018 Other specified glaucoma Generalized osteoarthritis Irritable bowel syndrome documented as of this encounter (statuses as of 10/02/2024) Resolved Problems Problem Noted Date Diagnosed Date [...] Thoracic . 10/28 4.6 thror aneurysm on [facility]--TTE orderd for 6mo 2017-f [facility] [place] copy on file 01/24 colon-WNL 01/22 ACC risk 24% declined statin. 11/23 PFTs WNL 06/22 colonoscopy WNL. +int hemorrhoids, divertic. 12/20 fell on ice-UOC rec tendon repair knee 10/22 pt declined prostate screen Bradycardia 10/30/2012 01/07/2020 Dyslipidemia 10/05/2021 Rotator cuff injury 04/28/20 17 Overview (09/06/2012): right documented as of this encounter (statuses as of 10/02/2024) Immunizations Name Administration Dates Next Due COVID-19 mRNA, LNP-s, No Pre serve, 2-Dose Series (Moderna) 11/19/2021,05/25/2021,12/09/2020,11/04 COVID-19, MRNA-LNP, 24-25, P R, 30MCG/0.3ML, IM, 12YRS AND ABOVE ([employer]-Comirnaty) 06/12/2024 COVID-19, MRNA-LNP, PF, 30 M CG/0.3 mL, 12 YRS AND ABOVE, IM ([employer]-Comirnaty) 07/02/2023 COVID-19, MRNA-LNP, PF, 50 M CG/0.5 mL, 12 YRS AND ABOVE, IM (MODERNA-Spikevax) 12/24/2023 Covid-19, Mrna, Lnp-s, Pf, B ivalent, 30 Mcg, IM, 12 yrs and above ([employer]) 02/24/2023,07/01/2022 Pneumococcal Conjugate Vacc, 13 Valent (Prevnar) [...] on file documented as of this encounter Miscellaneous Notes * Telephone Encounter - Sam Stapleton RN - 10/02/2024 11:36 AM EST Sent [employer] message to patient with Jasmin's previous message. * Telephone Encounter - Sam Stapleton RN - 10/02/2024 11:31 AM EST ----- Message from Jasmin Fabian sent at 09/25/2024 3:10 PM EST ----- Dr. Penaloza recommending repeat CBC in 1 month to monitor his anemia. Pt has standing order from heme/onc for CBC. documented in this encounter Plan of Treatment Upcoming Encounters Date Type Department Care Team (Late st Contact Info) Description 10/23/2024 11:15 AM EST Immunization/Injecti on Hematology/Oncology Treatment, [place] [address] [place] [phone] 11/06/2024 10:30 AM EST Office Visit Cardiology, [facility] [address] [facility] [place] [address] Quyen Connolly CRNP [address] [place] [address] [place] [phone] 11/15/2024 10:30 AM EST Office Visit Rheumatology [address] [place] [address] Mario Dover PA-C [facility] [place] [address] 12/04/2024 2:00 PM EST Laboratory Laboratory [facility] [address] [place] [phone] [facility] [address] [facility] [place] [address] 12/11/2024 2:00 PM EST Office Visit Hematology/Oncology [facility] [place] [address] [place] [phone] Jesus Penaloza MD [address] [place] [address] 02/11/2025 9:00 AM EDT Pharmacy Pharmacy Hematology Oncology [facility] [address] [place] [address] [facility], [facility] Hem/Onc [facility] [place] [address] 05/15/2025 12:00 PM EDT Office Visit Family Practice [facility] [address] [place] [address] Amos Pastrana MD [address] [place] [address] Health Maintenance Due Date Last Done Comments [...] Screening 01/26/2025 01/27/2024 CKD PHOS USE SMARTSET 59019 07/10/2025 07/10/2024 CKD HGB USE SMARTSET 13035 09/17/202509/17, 09/17/2024, 09/11/2024, Additional history exists DTap/Tdap Vaccines (3 - Td or Tdap) 06/30/2032 06/30/2022, 10/30/2012 Pneumococcal Vaccine: 65+ Years Completed 07/25/2015, 10/10/2002 Zoster Vaccines Completed 09/26/2019, 06/10, 10/10/2009 Influenza Vaccine (FLU shot) Completed 12/2023, 06/15/2023, 06/16/2022, Additional history exists VITAMIN D LEVEL ONCE IN A LIFETIME-USE SMARTSET# 47860 Completed 09/17/2024, 12/16/2023, 12/17/2022 HPV (Gardasil) Vaccine [...] filedocumented as of this encounter Care Teams Package Delivery Room Service Runner Relationship Specialty Start Date End Date Amos Pastrana MD [address] [place] [address] PCP - General Family Medicine 04/28/24 documented as of this encounter
--- OUTSIDE RECORDS SUMMARY | 2024-10-05 12:31 | External Medical Summary | Summary of Care ---
Author Name Unknown Organization [facility] Address [address] [place] [address] Phone [phone] Care Team Providers Care Dispatcher Electric Power Name Role Phone Amos Pastrana MD Primary Care Provider + Reason for Visit * Reason Onset Date Comments Test Results 09/18/2024 Encounter Details Date Type Department Care Team (Late st Contact Info) Description 09/18/2024 Telephone Family Practice [facility] [address] [place] [address] Jasmin Fabian PA-C [address] [place] [address] Test Results Allergies Active Allergy Reactions Criticality [...] as of this encounter (statuses as of 09/25/2024) Medications COMBIGAN 0.2-0.5 % OP SOLN Instill 1 Drop into the right eye in the morning and 1 Drop before bedtime. Active Centrum Adults Oral Tablet 1 tab daily 1 Tablet 3 Active Losartan Potassium 50 MG Oral Tablet (Cozaar) Take 1 Tablet by mouth in the morning. 30 Tablet 5 4 Active Additional Information Patient not taking.Reported on 09/17/2024 predniSONE 5 MG Oral Tablet (Deltasone)Indic ations:PMR (polymyalgia rheumatica) ([facility]) Take 1 Tablet by mouth in the morning. 90 Tablet 3 4 Active Metoprolol Succinate ER 25 MG Oral Tablet Extended Release 24 Hour (toPROL XL)Indications:P aroxysmal atrial fibrillation ([facility]),Cardiac pacemaker in situ,SSS (sick sinus syndrome) ([facility]),RBBB (right bundle branch block),HTN, goal below 140/90 Take 1 Tablet by mouth in the morning and 1 Tablet before bedtime. 180 Tablet 3 4 Active Ibrutinib 140 MG Oral Capsule (Imbruvica)Indic ations:CLL (chronic lymphocytic leukemia) ([facility]) TAKE 3 CAPSULES BY MOUTH IN THE MORNING. TAKE MEDICATION AT SAME TIME EVERY DAY 90 Capsule 5 08/24/2024 11:24 AM EST 4 06/07/20 25 Active hydroCHLOROthiaz maryse 12.5 MG Oral CapsuleIndicatio [...] before bedtime. 60 Capsule 3 4 Active Benzonatate 100 MG Oral Capsule (Tessalon Perles)Indicatio ns:Acute cough Take 1 Capsule by mouth 3 times a day as needed for Cough. Do not cut, crush, or chew. 30 Capsule 4 Active documented as of this encounter (statuses as of 09/25/2024) Active Problems Problem Noted Date Diagnosed Date [...] (chronic lymphocytic leukemia) 07/18/2017 Overview (07/18/2017): Dx 2016-Flow cytometric analysis of the peripheral blood indicates [...] Lung nodule 10/30/2012 Overview (10/22/2018): RLL. Stable [id number]. Per pt since Carrington's esophagus 09/06/2012 Overview (04/04/2018): 03/27 path Barretts no dysplasia. Consider lulu 5y. 03/24- EGD-stage C0-M1 per [place] criteria. No dysplasia. REC LULU 03/2018 Other specified glaucoma Generalized osteoarthritis Irritable bowel syndrome documented as of this encounter (statuses as of 09/25/2024) Resolved Problems Problem Noted Date Diagnosed Date [...] Thoracic . 10/28 4.6 thror aneurysm on [facility] CT--TTE orderd for 6mo 2017-f Living [place] copy on file 01/24 colon-WNL 01/22 ACC risk 24% declined statin. 11/23 PFTs WNL 06/22 colonoscopy WNL. +int hemorrhoids, divertic. 12/20 fell on ice-UOC rec tendon repair knee 10/22 pt declined prostate screen Bradycardia 10/30/2012 01/07/2020 Dyslipidemia 10/05/2021 Rotator cuff injury 04/28/20 17 Overview (09/06/2012): right documented as of this encounter (statuses as of 09/25/2024) Immunizations Name Administration Dates Next Due COVID-19 mRNA, LNP-s, No Pre serve, 2-Dose Series (Moderna) 11/19/2021,05/25/2021,12/09/2020,11/04 COVID-19, MRNA-LNP, 24-25, P R, 30MCG/0.3ML, IM, 12YRS AND ABOVE ([employer]-Comirnaty) 06/12/2024 COVID-19, MRNA-LNP, PF, 30 M CG/0.3 [...] encounter Miscellaneous Notes * Telephone Encounter - Sweetie Dias CMA - 09/19/2024 1:19 PM EST Notified via MyG, FOBT card out in filing cabinet. * Telephone Encounter - Tali May LPN - 09/18/2024 4:52 PM EST IM nurses - pt's wanted to mixing picker tender the FOBT card in clinic - can someone place 1 at the desk for mixing picker tender? * Telephone Encounter - aJsmin Fabian PA-C - 09/18/2024 12:49 PM EST Signed. Thank you! * Telephone Encounter - Tali May LPN - 09/18/2024 12:10 PM EST FOBT pended * Telephone Encounter - Jasmin Fabian PA-C - 09/18/2024 11:52 AM EST Yes I did. Did I not place the correct order? * Telephone Encounter - Tali May LPN - 09/18/2024 10:39 AM EST Jasmin - did you mean to order FOBT? * Telephone Encounter - Danelle Valencia CMA - 09/18/2024 10:32 AM EST Patient aware and voiced understanding. * Telephone Encounter - Danelle Valencia CMA - 09/18/2024 10:25 AM EST ----- Message from Jasmin Fabian sent at 09/17/2024 6:31 PM EST ----- Pt's CBC continues to drop--is now 11 down from 11.7 last week. Iron level is also low. Would like pt to complete hemoccult cards to check for blood loss through bowel. Order placed. Would also recommend discussing iron deficiency with Dr. Penaloza's office to determine best course of replenishment ofthis if not having blood loss through GI tract. documented in this encounter Plan of Treatment Upcoming Encounters Date Type Department Care Team (Late st Contact Info) Description 10/23/2024 11:15 AM EST Immunization/Injecti on Hematology/Oncology Treatment, [place] [address] [place] [phone] 11/06/2024 10:30 AM EST Office Visit Cardiology, [facility] [address] [place] [address] Quyen Connolly CRNP [address] [place] [address] [place] [address] 11/15/2024 10:30 AM EST Office Visit Rheumatology [facility] [address] [facility] [place] [address] Mario [place] PA-C [address] [employer] [place] [address] 12/04/2024 2:00 PM EST Laboratory Laboratory [facility] [address] [place] [phone] [facility] 200 [facility] [place] [address] 12/11/2024 2:00 PM EST Office Visit Hematology/Oncology [facility] [address] [place] [phone] Jesus Penaloza MD [address] [place] [address] 02/11/2025 9:00 AM EDT Pharmacy Pharmacy Hematology Oncology [facility] [address] [place] [address] [facility], [facility] Hem/Onc [address] [place] [address] 05/15/2025 12:00 PM EDT Office Visit Family Practice [facility] [address] [place] [address] Amos Pastrana MD [address] [place] [address] Health Maintenance Due Date Last Done Comments [...] Screening 01/26/2025 01/27/2024 CKD PHOS USE SMARTSET 82780 07/10/2025 07/10/2024 CKD HGB USE SMARTSET 19995 09/17/202509/17, 09/17/2024, 09/11/2024, Additional history exists DTap/Tdap Vaccines (3 - Td or Tdap) 06/30/2032 06/30/2022, 10/30/2012 Pneumococcal Vaccine: 65+ Years Completed 07/25/2015, 10/10/2002 Zoster Vaccines Completed 09/26/2019, 06/10, 10/10/2009 Influenza Vaccine (FLU shot) Completed 12/2023, 06/15/2023, 06/16/2022, Additional history exists VITAMIN D LEVEL ONCE IN A LIFETIME-USE SMARTSET# 51651 Completed 09/17/2024, 12/16/2023, 12/17/2022 HPV (Gardasil) Vaccine [...] Not on filedocumented as of this encounter Results * FECAL OCCULT BLOOD, EIA (09/18/2024 4:46 PM EST) iFOBT Negative Negative 09/19/2024 9:55 AM EST LABORATORY [facility] Stool Stool specimen / Unknown Non-blood Collection / Unknown 09/18/2024 4:46 PM EST 09/18/2024 4:46 PM EST Jasmin Fabian PATerrie LAB FLUID AND STO OL ORDERABLES Final Result [facility]ORY [facility] [address] [facility] [place] [address] documented in this encounter Visit Diagnoses Diagnosis Iron deficiency anemia, unspecified iron deficiency anemia type- Primary documented in this encounter Care Teams Dispatcher Electric Power Relationship Specialty Start Date End Date Amos Pastrana MD [address] [facility] [place] [address] PCP - General Family Medicine 04/28/24 documented as of this encounter
--- OUTSIDE RECORDS SUMMARY | 2024-10-05 12:31 | External Medical Summary | Summary of Care ---
Author Name Unknown Organization [facility] Address [address] [place] [address] Phone [phone] Care Team Providers Care Sales Estimator Name Role Phone Amos Pastrana MD Primary Care Provider + Reason for Visit * Reason Comments eRx-Medication Refill Encounter Details Date Type Department Care Team (Late st Contact Info) Description 09/28/2024 Refill Family Practice [facility] [address] [place] [address] Riri Zavala CRNP [address] [place] [address] Allergies Active Allergy Reactions Criticality Noted Date [...] as of this encounter (statuses as of 09/29/2024) Medications COMBIGAN 0.2-0.5 % OP SOLN Instill 1 Drop into the right eye in the morning and 1 Drop before bedtime. Active Centrum Adults Oral Tablet 1 tab daily 1 Tablet 3 Active predniSONE 5 MG Oral Tablet (Deltasone)Indica tions:PMR (polymyalgia rheumatica) ([facility]) Take 1 Tablet by mouth in the morning. 90 Tablet 3 4 Active Metoprolol Succinate ER 25 MG Oral Tablet Extended Release 24 Hour (toPROL XL)Indications:Pa roxysmal atrial fibrillation ([facility]),Cardiac pacemaker in situ,SSS (sick sinus syndrome) ([facility]),RBBB (right bundle branch block),HTN, goal below 140/90 Take 1 Tablet by mouth in the morning and 1 Tablet before bedtime. 180 Tablet 3 4 Active Ibrutinib 140 MG Oral Capsule (Imbruvica)Indica tions:CLL (chronic lymphocytic leukemia) ([facility]) TAKE 3 CAPSULES BY [...] Oral Tablet (Deltasone)Indica tions:PMR (polymyalgia rheumatica) ([facility]) Take 1 Tablet by mouth in the morning for 5 days. 5 Tablet 4 10/02/20 24 Active documented as of this encounter (statuses as of 09/29/2024) Active Problems Problem Noted Date Diagnosed Date [...] Lung nodule 10/30/2012 Overview (10/22/2018): RLL. Stable [id number]. 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 Consider lulu 5y. 03/24- EGD-stage C0-M1 per [place] criteria. No dysplasia. REC LULU 03/2018 Other specified glaucoma Generalized osteoarthritis Irritable bowel syndrome documented as of this encounter (statuses as of 09/29/2024) Resolved Problems Problem Noted Date Diagnosed Date [...] Thoracic . 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 11/23 PFTs WNL 06/22 colonoscopy WNL. +int hemorrhoids, divertic. 12/20 fell on ice-UOC rec tendon repair knee 10/22 pt declined prostate screen Bradycardia 10/30/2012 01/07/2020 Dyslipidemia 10/05/2021 Rotator cuff injury 04/28/20 17 Overview (09/06/2012): right documented as of this encounter (statuses as of 09/29/2024) Immunizations Name Administration Dates Next Due COVID-19 mRNA, LNP-s, No Pre serve, 2-Dose Series (Moderna) 11/19/2021,05/25/2021,12/09/2020,11/04 COVID-19, MRNA-LNP, 24-25, P R, 30MCG/0.3ML, IM, 12YRS AND ABOVE ([employer]-Comirnaty) 06/12/2024 COVID-19, MRNA-LNP, PF, 30 M CG/0.3 mL, 12 YRS AND ABOVE, IM (XOR[employer]ORS-Comirnaty) 07/02/2023 COVID-19, MRNA-LNP, PF, 50 M CG/0.5 mL, 12 YRS AND ABOVE, IM (MODERNA-Spikevax) 12/24/2023 Covid-19, Mrna, Lnp-s, Pf, B ivalent, 30 Mcg, IM, 12 yrs and above ([employer]) 02/24/2023,07/01/2022 Pneumococcal Conjugate Vacc, 13 Valent (Prevnar) [...] encounter Miscellaneous Notes * Telephone Encounter - Yarely Adler RPh - 09/29/2024 2:09 PM ESTRefused Prescriptions: Disp Refills Losartan Potassium 50 MG Oral Tablet (Coza*30 Tab*4 Sig: TAKE 1TABLET BY MOUTH EVERY MORNINGRefused By: YARELY ADLERReason for Refusal: Refill Not AppropriateReason for Refusal Comment: on hold due to hypotension noted 09/27/24 * Telephone Encounter - Yarely Adler RPh - 09/29/2024 2:08 PM EST Per 09/27/24 OV notes Losartan is on hold. Thank you, Yarely Adler, PharmD Clinical Pharmacist [facility] 09/29/24 2:09 PM [phone] documented in this encounter Plan of Treatment Upcoming Encounters Date Type Department Care Team (Late st Contact Info) Description 10/23/2024 11:15 AM EST Immunization/Injecti on Hematology/Oncology Treatment, [place] [address] [place] [phone] 11/06/2024 10:30 AM EST Office Visit Cardiology, [facility] [address] [place] [address] Quyen Connolly CRNP [address] [facility] [place] [address] 11/15/2024 10:30 AM EST Office Visit Rheumatology [facility] [address] [facility] [place] [address] Mario Dover PA-C [address] [facility] [place] [address] 12/04/2024 2:00 PM EST Laboratory Laboratory [facility] [address] [place] [address] [facility] [address] [place] [address] 12/11/2024 2:00 PM EST Office Visit Hematology/Oncology [facility] [address] [place] [phone] Jesus Penaloza MD [address] [place] [address] 02/11/2025 9:00 AM EDT Pharmacy Pharmacy Hematology Oncology [facility] [address] [place] [address] [facility] Hem/Onc [address] [place] [address] 05/15/2025 12:00 PM EDT Office Visit Family Practice [facility] [address] [place] [address] Amos Pastrana MD [address] [place] [address] Health Maintenance Due Date Last Done Comments [...] Screening 01/26/2025 01/27/2024 CKD PHOS USE SMARTSET 31730 07/10/2025 07/10/2024 CKD HGB USE SMARTSET 09439 09/17/202509/17, 09/17/2024, 09/11/2024, Additional history exists DTap/Tdap Vaccines (3 - Td or Tdap) 06/30/2032 06/30/2022, 10/30/2012 Pneumococcal Vaccine: 65+ Years Completed 07/25/2015, 10/10/2002 Zoster Vaccines Completed 09/26/2019, 06/10, 10/10/2009 Influenza Vaccine (FLU shot) Completed 12/2023, 06/15/2023, 06/16/2022, Additional history exists VITAMIN D LEVEL ONCE IN A LIFETIME-USE SMARTSET# 76871 Completed 09/17/2024, 12/16/2023, 12/17/2022 HPV (Gardasil) Vaccine [...] filedocumented as of this encounter Care Teams Sales Estimator Relationship Specialty Start Date End Date Amos Pastrana MD [address] [place] [address] PCP - General Family Medicine 04/28/24 documented as of this encounter
--- OUTSIDE RECORDS SUMMARY | 2024-10-05 12:32 | External Medical Summary | Summary of Care ---
Author Name Unknown Organization [facility] Address [address] [place] [address] Phone [phone] Care Team Providers Care Manager Heavy Equipment Name Role Phone Amos Pastrana MD Primary Care Provider + Reason for Visit * Reason Comments Medication Administration B12 injection Encounter Details Date Type Department Care Team (Late st Contact Info) Description 08/28/2024 11:00 AM EST Immunization/I njection Hematology/Oncology Treatment, [address] [phone] [place], Chair [address] [address] Vitamin B12 deficiency (dietary) anemia* Allergies Active Allergy Reactions Criticality Noted Date [...] as of this encounter (statuses as of 09/16/2024) Medications COMBIGAN 0.2-0.5 % OP SOLN Instill 1 Drop into the right eye in the morning and 1 Drop before bedtime. Active Centrum Adults Oral Tablet 1 tab daily 1 Tablet 3 Active Losartan Potassium 50 MG Oral Tablet (Cozaar) Take 1 Tablet by mouth in the morning. 30 Tablet 5 4 Active predniSONE 5 MG Oral Tablet (Deltasone)Indica [...] 11:24 AM EST 4 06/07/20 25 Active hydroCHLOROthiazi de [...] before bedtime. 60 Capsule 3 4 Active Doxycycline Hyclate 100 MG Oral Capsule 1 tab twice a day--add to 10 days for 14 days total Until gone. 8 Capsule 4 Active documented as of this encounter (statuses as of 09/16/2024) Active Problems Problem Noted Date Diagnosed Date [...] Lung nodule 10/30/2012 Overview (10/22/2018): RLL. Stable [id number]. 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 Consider lulu 5y. 03/24- EGD-stage C0-M1 per [place] criteria. No dysplasia. REC LULU 03/2018 Other specified glaucoma Generalized osteoarthritis Irritable bowel syndrome documented as of this encounter (statuses as of 09/16/2024) Resolved Problems Problem Noted Date Diagnosed Date [...] Thoracic . 10/28 4.6 thror aneurysm on [facility] CT--TTE orderd for 6mo 2017-f Living [place] copy on file 01/24 colon-WNL 01/22 ACC risk 24% declined statin. 11/23 PFTs WNL 06/22 colonoscopy WNL. +int hemorrhoids, divertic. 12/20 fell on ice-UOC rec tendon repair knee 10/22 pt declined prostate screen Bradycardia 10/30/2012 01/07/2020 Dyslipidemia 10/05/2021 Rotator cuff injury 04/28/20 17 Overview (09/06/2012): right documented as of this encounter (statuses as of 09/16/2024) Immunizations Name Administration Dates Next Due COVID-19 mRNA, LNP-s, No Pre serve, 2-Dose Series (Moderna) 11/19/2021,05/25/2021,12/09/2020,11/04 COVID-19, MRNA-LNP, 24-25, P R, 30MCG/0.3ML, IM, 12YRS AND ABOVE ([employer]-Comirnaty) 06/12/2024 COVID-19, MRNA-LNP, PF, 30 M CG/0.3 mL, 12 YRS AND ABOVE, IM (lucierna-Comirnaty) 07/02/2023 COVID-19, MRNA-LNP, PF, 50 M CG/0.5 [...] on file documented as of this encounter Nursing Notes * Tessa Bautista, RN - 08/28/2024 12:12 PM EST Patient here for b12 injection. Administered in left deltoid per patient preference. Patient tolerated well. Patient left facility in stable condition. documented in this encounter Plan of Treatment Upcoming Encounters Date Type Department Care Team (Late st Contact Info) Description 09/25/2024 11:00 AM EST Immunization/Injecti on Hematology/Oncology Treatment, [place] [address] [facility] [address] [address] [place] [phone] [place], Chair 3 Hem Onc [address] [place] [address] 11/06/2024 10:30 AM EST Office Visit Cardiology, [facility] [address] [facility] [place] [address] Quyen Connolly CRNP [address] [place] [address] [place] [address] 11/15/2024 10:30 AM EST Office Visit Rheumatology [facility] [address] [place] [address] Mario Dover PA-C [address] [place] [address] 12/04/2024 2:00 PM EST Laboratory Laboratory [address] [place] [address] Po Jewell [facility] [address] [facility] [place] [address] 12/11/2024 2:00 PM EST Office Visit Hematology/Oncology [facility] Radha Jewell [address] [place] [phone] Jesus Penaloza MD [address] [facility] [place], [place] [address] 02/11/2025 9:00 AM EDT Pharmacy Pharmacy Hematology Oncology [facility] [address] [place] [address] [facility] Hem[facility]Onc [address] [place] [address] Health Maintenance Due Date Last Done Comments [...] Screening 01/26/2025 01/27/2024 CKD PHOS USE SMARTSET 05568 07/10/2025 07/10/2024 CKD HGB USE SMARTSET 26730 09/11/202509/11, 09/11/2024, 07/10/2024, Additional history exists DTap/Tdap Vaccines (3 - Td or Tdap) 06/30/2032 06/30/2022, 10/30/2012 Pneumococcal Vaccine: 65+ Years Completed 07/25/2015, 10/10/2002 Zoster Vaccines Completed 09/26/2019, 06/10, 10/10/2009 VITAMIN D LEVEL ONCE IN A LIFETIME-USE SMARTSET# 46689 Completed 12/16/2023, 12/17/2022 Influenza Vaccine (FLU shot) Completed 12/2023, 06/15/2023, 06/16/2022, Additional history exists HPV (Gardasil) Vaccine Aged Out No lo [...] as of this encounter Visit Diagnoses Diagnosis Vitamin B12 deficiency (dietary) anemia- Primary Other vitamin B12 deficiency anemia documented in this encounter Administered Medications Inactive Administered Medications - up to 3 most recent administrations Medication Order MAR Action Action Date Dose Rate Site Vitamin B-12 (Cyanocobalamin) inj 1,000 mcg 1,000 mcg, Intramuscular, ONCE, On Tue08/28/24 at 1145, For 1 doseIndications:Vitamin B12 deficiency (dietary) anemia Given 08/28/2024 10:59 AM EST 1,000 mcg Arm Left Upper documented in this encounter Care Teams Manager Heavy Equipment Relationship Specialty Start Date End Date Amos Pastrana MD [address] [place] [address] PCP - General Family Medicine 04/28/24 documented as of this encounter
--- OUTSIDE RECORDS SUMMARY | 2024-10-05 12:32 | External Medical Summary ---
Author Name Unknown Address Unknown Organization K01:[facility] - [address] [place] [address] Laboratory Report Ordering Provider Test Date Status ROSELINE MARLEY 09/18/2024 16:46:14 Final Observation Date Value Abnormality Reference (Units ) Status Occult Blood (EIA) 09/18/2024 16:46:14 Negative N egative Final Performing Location [facility] - [address] [place] [address]
--- OUTSIDE RECORDS SUMMARY | 2024-10-05 12:32 | External Medical Summary | Summary of Care ---
Author Name Unknown Organization [facility] Address [address] [place] [address] Phone [phone] Care Team Providers Care Bakery Decorator Name Role Phone Amos Pastrana MD Primary Care Provider + Reason for Visit * Reason Comments Outpatient Testing Encounter Details Date Type Department Care Team (Late st Contact Info) Description 09/17/2024 12:00 PM EST Laboratory Laboratory [facility] [address] [place] [phone] [facility] [address] [facility] [place] [address] Fatigue, unspecified type Allergies Active Allergy Reactions Criticality Noted Date [...] as of this encounter (statuses as of 09/17/2024) Medications COMBIGAN 0.2-0.5 % OP SOLN Instill [...] MG Oral Tablet (Deltasone)Indic ations:PMR (polymyalgia rheumatica) ([facility]) Take 1 Tablet by mouth in the morning. 90 Tablet 3 4 Active Metoprolol Succinate ER 25 MG Oral Tablet Extended Release 24 Hour (toPROL XL)Indications:P aroxysmal atrial fibrillation ([facility]),Cardiac pacemaker in situ,SSS (sick sinus syndrome) ([facility]),RBBB (right bundle branch block),HTN, goal below 140/90 Take 1 Tablet by mouth in the morning and 1 Tablet before bedtime. 180 Tablet 3 4 Active Ibrutinib 140 MG Oral Capsule (Imbruvica)Indic ations:CLL (chronic lymphocytic leukemia) ([facility]) TAKE 3 CAPSULES BY [...] as of this encounter (statuses as of 09/17/2024) Active Problems Problem Noted Date Diagnosed Date [...] Lung nodule 10/30/2012 Overview (10/22/2018): RLL. Stable [id number]. 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 Consider lulu 5y. 03/24- EGD-stage C0-M1 per [place] criteria. No dysplasia. REC LULU 03/2018 Other specified glaucoma Generalized osteoarthritis Irritable bowel syndrome documented as of this encounter (statuses as of 09/17/2024) Resolved Problems Problem Noted Date Diagnosed Date [...] Thoracic . 10/28 4.6 thror aneurysm on [facility] CT--TTE orderd for 6mo 2016- Living [place] copy on file 01/24 colon-WNL 01/22 ACC risk 24% declined statin. 11/23 PFTs WNL 06/22 colonoscopy WNL. +int hemorrhoids, divertic. 12/20 fell on ice-UOC rec tendon repair knee 10/22 pt declined prostate screen Bradycardia 10/30/2012 01/07/2020 Dyslipidemia 10/05/2021 Rotator cuff injury 04/28/20 17 Overview (09/06/2012): right documented as of this encounter (statuses as of 09/17/2024) Immunizations Name Administration Dates Next Due COVID-19 [...] 11:00 AM EST Immunization/Injecti on Hematology/Oncology Treatment, [place] [address] [place] [phone] [place], Chair 3 Hem Onc [facility] [address] [facility] [place] [address] 11/06/2024 10:30 AM EST Office Visit Cardiology, [facility] [address] [facility] [place] [address] Quyen Connolly CRNP [address] [facility] [place] [address] 11/15/2024 10:30 AM EST Office Visit Rheumatology [facility] [address] [place] [address] Mario [place] PA-C [address] [place] [address] 12/04/2024 2:00 PM EST Laboratory Laboratory [facility] [place] [address] [place] [phone] [place] Lab [facility] [address] [facility] [place] [address] 12/11/2024 2:00 PM EST Office Visit Hematology/Oncology [facility] [address] [facility] [place] [phone] Jesus Penaloza MD [address] [facility] [place], [place] [address] 02/11/2025 9:00 AM EDT Pharmacy Pharmacy Hematology Oncology [facility] [address] [place] [address] Gm, [facility] Hem/Onc [address] [place] [address] Pending Results Name Type Priority Associated Diagnoses Date /Time CBC WITH WBC DIFFERENTIAL Lab Routine Fatigue, unspecified type 09/17/2024 12:02 PM EST IRON SCREEN, INCLUDING TIBC Lab Routine Fatigue, unspecified type 09/17/2024 12:02 PM EST VITAMIN B12 Lab Routine Fatigue, unspecified type 09/17/2024 12:02 PM EST 25-HYDROXY VITAMIN D Lab Routine Fatigue, unspecified type 09/17/2024 12:02 PM EST TSH WITH FREE T4 IF INDICATED Lab Routine Fatigue, unspecified type 09/17/2024 12:02 PM EST CBC Lab Routine Fatigue, unspecified type 09/17/2024 12:02 PM EST DIFFERENTIAL, AUTOMATED Lab Routine Fatigue, unspecified type 09/17/2024 12:02 PM EST Health Maintenance Due Date Last Done Comments [...] Screening 01/26/2025 01/27/2024 CKD PHOS USE SMARTSET 06618 07/10/2025 07/10/2024 CKD HGB USE SMARTSET 43550 09/11/202509/11, 09/11/2024, 07/10/2024, Additional history exists DTap/Tdap Vaccines (3 - Td or Tdap) 06/30/2032 06/30/2022, 10/30/2012 Pneumococcal Vaccine: 65+ Years Completed 07/25/2015, 10/10/2002 Zoster Vaccines Completed 09/26/2019, 06/10, 10/10/2009 VITAMIN D LEVEL ONCE IN A LIFETIME-USE SMARTSET# 08484 Completed 12/16/2023, 12/17/2022 Influenza Vaccine (FLU shot) [...] as of this encounter Visit Diagnoses Diagnosis Fatigue, unspecified type documented in this encounter Care Teams Bakery Decorator Relationship Specialty Start Date End Date Amos Pastrana MD [address] [place] [address] PCP - General Family Medicine 04/28/24 documented as of this encounter
--- OUTSIDE RECORDS SUMMARY | 2024-10-05 12:32 | External Medical Summary | Summary of Care ---
Author Name Unknown Organization [facility] Address [address] [place] [address] Phone [phone] Care Team Providers Care Small Business Sales Representative Name Role Phone Amos Hernandez MD Primary Care Provider + Reason for Visit * Reason Onset Date Comments Appointment 09/20/2024 Encounter Details Date Type Department Care Team (Late st Contact Info) Description 09/20/2024 Telephone Family Practice [facility] [address] [place] [address] Amos Hernandez MD [address] [place] [address] Appointment Allergies Active Allergy Reactions Criticality Noted Date [...] as of this encounter (statuses as of 09/21/2024) Medications COMBIGAN 0.2-0.5 % OP SOLN Instill [...] MG Oral Tablet (Deltasone)Indic ations:PMR (polymyalgia rheumatica) ([facility]) Take 1 Tablet by mouth in the morning. 90 Tablet 3 4 Active Metoprolol Succinate ER 25 MG Oral Tablet Extended Release 24 Hour (toPROL XL)Indications:P aroxysmal atrial fibrillation ([facility]),Cardiac pacemaker in situ,SSS (sick sinus syndrome) ([facility]),RBBB (right bundle branch block),HTN, goal below 140/90 Take 1 Tablet by mouth in the morning and 1 Tablet before bedtime. 180 Tablet 3 4 Active Ibrutinib 140 MG Oral Capsule (Imbruvica)Indic ations:CLL (chronic lymphocytic leukemia) ([facility]) TAKE 3 CAPSULES BY MOUTH IN [...] as of this encounter (statuses as of 09/21/2024) Active Problems Problem Noted Date Diagnosed Date [...] Lung nodule 10/30/2012 Overview (10/22/2018): RLL. Stable [id number]. 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 Consider lulu 5y. 03/24- EGD-stage C0-M1 per Flushing criteria. No dysplasia. REC LULU 03/2018 Other specified glaucoma Generalized osteoarthritis Irritable bowel syndrome documented as of this encounter (statuses as of 09/21/2024) Resolved Problems Problem Noted Date Diagnosed Date [...] Thoracic . 10/28 4.6 thror aneurysm on [facility]--TTE orderd for 6mo 2017-f Living [facility] copy on file 01/24 colon-WNL 01/22 ACC risk 24% declined statin. 11/23 PFTs WNL 06/22 colonoscopy WNL. +int hemorrhoids, divertic. 12/20 fell on ice-UOC rec tendon repair knee 10/22 pt declined prostate screen Bradycardia 10/30/2012 01/07/2020 Dyslipidemia 10/05/2021 Rotator cuff injury 04/28/20 17 Overview (09/06/2012): right documented as of this encounter (statuses as of 09/21/2024) Immunizations Name Administration Dates Next Due COVID-19 mRNA, LNP-s, No Pre serve, 2-Dose Series (Moderna) 11/19/2021,05/25/2021,12/09/2020,11/04 COVID-19, MRNA-LNP, 24-25, P R, 30MCG/0.3ML, IM, 12YRS AND ABOVE (iKnowl-Comirnaty) 06/12/2024 COVID-19, MRNA-LNP, PF, 30 M CG/0.3 mL, 12 YRS AND ABOVE, IM (PFIZER-Comirnaty) 07/02/2023 COVID-19, MRNA-LNP, PF, 50 M CG/0.5 mL, 12 YRS AND ABOVE, IM (MODERNA-Spikevax) 12/24/2023 Covid-19, Mrna, Lnp-s, Pf, B ivalent, 30 Mcg, IM, 12 yrs and above (iKnowl) 02/24/2023,07/01/2022 Pneumococcal Conjugate Vacc, 13 Valent (Prevnar) [...] encounter Miscellaneous Notes * Telephone Encounter - Madeline Echevarria OSA - 09/21/2024 10:48 AM EST Spoke w/ radhika - he agreed to get on dr hernandez's wait list and asked that we spoke with his about sooner appointments with anyone other then mary- His will call in if he needs a soonerappointment * Telephone Encounter - Amos Hernandez MD - 09/21/2024 9:34 AM EST I don't have sooner appts for physical, so let patient know please book next available w /me. If he wants sooner, ok to book with Balbina Busch or Balbina Zavala (has seen both before) * Telephone Encounter - Madeline Echevarria OSA - 09/21/2024 7:[address] Hernandez does not have anything until April at all and pt has declined acute appointment with anyone else * Telephone Encounter - Pilar Etienne OSA - 09/20/2024 4:49 PM EST No Appointments Available Patient declined appointments?: Yes What Visit Type is needed? Return If Acute Visit Type is needed, were surrounding clinics offered to patient (Yes/No)? N/A Was patient offered appointments with other available providers (Yes/No)? Yes See Call Details? (Yes or No): No Patient's states that the patient would like to have an appointment only with for acheck up. Patient's states that the patient would need to have the appointment sooner then theappointment has available in April. documented in this encounter Plan of Treatment Upcoming Encounters Date Type Department Care Team (Late st Contact Info) Description 09/25/2024 11:00 AM EST Immunization/Injecti on Hematology/Oncology Treatment, [place] [address] [place] [phone] Fanta, Chair 3 Hem Onc [facility] [address] [facility] [place] [address] 11/06/2024 10:30 AM EST Office Visit Cardiology, [facility] [address] [facility] [place] [address] Quyen Connolly CRNP [address] [place] [address] 11/15/2024 10:30 AM EST Office Visit Rheumatology [facility] [address] [place] [address] Mario Dover PA-C [address] [place] [address] 12/04/2024 2:00 PM EST Laboratory Laboratory [facility] [place] [address] [facility] [place] [phone] Fanta Lab [facility] [address] [facility] [place] [address] 12/11/2024 2:00 PM EST Office Visit Hematology/Oncology [facility] [address] [place] [place] [phone] Jesus Penaloza MD [address] [facility] [place], [place] [address] 02/11/2025 9:00 AM EDT Pharmacy Pharmacy Hematology Oncology [facility] [address] [place] [address] [facility] Hem/Onc [address] [place] [address] 05/15/2025 12:00 PM EDT Office Visit Family Practice [facility] [address] [place] [address] Amos Hernandez MD [address] [place] [address] Health Maintenance Due Date Last Done Comments [...] Screening 01/26/2025 01/27/2024 CKD PHOS USE SMARTSET 73861 07/10/2025 07/10/2024 CKD HGB USE SMARTSET 15516 09/17/202509/17, 09/17/2024, 09/11/2024, Additional history exists DTap/Tdap Vaccines (3 - Td or Tdap) 06/30/2032 06/30/2022, 10/30/2012 Pneumococcal Vaccine: 65+ Years Completed 07/25/2015, 10/10/2002 Zoster Vaccines Completed 09/26/2019, 06/10, 10/10/2009 Influenza Vaccine (FLU shot) Completed 12/2023, 06/15/2023, 06/16/2022, Additional history exists VITAMIN D LEVEL ONCE IN A LIFETIME-USE SMARTSET# 09975 Completed 09/17/2024, 12/16/2023, 12/17/2022 HPV (Gardasil) Vaccine [...] filedocumented as of this encounter Care Teams Small Business Sales Representative Relationship Specialty Start Date End Date Amos Hernandez MD [address] [place] [address] PCP - General Family Medicine 04/28/24 documented as of this encounter
--- OUTSIDE RECORDS SUMMARY | 2024-10-05 12:32 | External Medical Summary ---
Author Name Unknown Address Unknown Organization [id number]:[facility] [address] [facility] [address] [place] [address] Laboratory Report Ordering Provider Test Date Status ROSELINE MARLEY 09/17/2024 12:02:53 Final Observation Date Value Abnormality Reference (Units ) Status SYNC LEUKOCYTES IN BLOOD BY AUTOMATED COUNT 09/17/2024 12:02:53 15.98 Above high normal 4.00-10.80 (K/uL) Final Neutrophils/100 leukocytes in Blood by Manual count 09/17/2024 12:02:53 78.0 Above high normal 40.0-75.0 (%) Final Lymphocytes/100 leukocytes in Blood by Manual count 09/17/2024 12:02:53 15.0 Below low normal 18.0-42.0 (%) Final Monocytes/100 leukocytes in Blood by Manual count 09/17/2024 12:02:53 6.0 1.0-11.0 (%) Final Metamyelocytes/100 leukocytes in Blood by Manual count 09/17/2024 12:02:53 1.0 Above high normal <=0.0 (%) Final Neutrophils [#/volume] in Blood by Manual count 09/17/2024 12:02:53 12.46 Above high normal 1.80-7.70 (K/uL) Final Lymphocytes [#/volume] in Blood by Manual count 09/17/2024 12:02:53 2.40 1.00-4.80 (K/uL) Final Monocytes [#/volume] in Blood by Manual count 09/17/2024 12:02:53 0.96 0.00-1.10 (K/uL) Final Metamyelocytes [#/volume] in Blood by Manual count 09/17/2024 12:02:53 0.16 Above high normal <=0.00 (K/uL) Final Nucleated erythrocytes/100 leukocytes [Ratio] in Blood by Automated count 09/17/2024 12:02:53 Final Performing Location [facility] [place] [address]
--- OUTSIDE RECORDS SUMMARY | 2024-10-05 12:32 | External Medical Summary ---
Author Name Unknown Address Unknown Organization K09:[facility] [place] [address] Laboratory Report Ordering Provider Test Date Status ROSELINE MARLEY 09/17/2024 12:02:53 Final Observation Date Value Abnormality Reference (Units ) Status WBC, Total 09/17/2024 12:02:53 15.98 Above high normal 4 .00-10.80 (K/uL) Final RBC 09/17/2024 12:02:53 3.39 4.50-5.25 (M/uL) Final Hemoglobin 09/17/2024 12:02:53 11.0 Below low normal 14 .0-16.8 (g/dL) Final HCT 09/17/2024 12:02:53 34.3 Below low normal 40. 0-48.4 (%) Final MCV 09/17/2024 12:02:53 101.2 82.0-99.5 (fL) Final MCH 09/17/2024 12:02:53 32.4 27.0-34.0 (pg) Final MCHC 09/17/2024 12:02:53 32.1 32.0-36.0 (g/dL) Final RDW 09/17/2024 12:02:53 14.1 11.5-15.5 (%) Final Platelets 09/17/2024 12:02:53 253 140-400 (K /uL) Final MPV 09/17/2024 12:02:53 9.9 6.6-11.1 ( fL) Final Performing Location [facility] [place] [address]
--- OUTSIDE RECORDS SUMMARY | 2024-10-05 12:32 | External Medical Summary | Summary of Care ---
Author Name Unknown Organization [facility] Address [address] [place] [address] Phone [phone] Care Team Providers Care Traveling Nurse Name Role Phone Amos Pastrana MD Primary Care Provider + Reason for Referral * Medication Prior Authorization - Pending Review Specialty Diagnoses / Procedures Referred By Giovana finley Referred To Contact Diagnoses Acute cough Jasmin Fabian PA-C [address] [place] [address] Phone: tel: fax: Referral ID Status Reason Start Date Expiration Date V isits Requested Visits Authorized [id number] Pending Review 999 999 Reason for Visit * Reason Comments Acute Pt had a tick bite a ppx 5 weeks ago. Reports he is very fatigued in the mornings and gets up late afternoon but high energy at night. Has developed a productive cough and chest congestion on Tuesday. Last night affected his sleep terribly and made him short of breath when coughing. Encounter Details Date Type Department Care Team (Late Contact Info) Description 09/17/2024 11:20 AM EST Office Visit General Internal Medicine [facility] [address] [place] [address] [address] Jasmin Fabian PA-C [address] [place] [address] [address] Acute cough*; Erythema migrans (Lyme disease); Fatigue, unspecified type Allergies Active Allergy Reactions [...] Oral Tablet 1 tab daily 1 Tablet 12/07/19 23 Active Losartan Potassium 50 MG Oral Tablet (Cozaar) Take 1 Tablet by mouth in the morning. 30 Tablet 5 11/11/19 24 Active Additional Information Patient not taking.Reported on 09/17/2024 predniSONE 5 MG Oral Tablet (Deltasone)Indic ations:PMR (polymyalgia rheumatica) ([facility]) Take 1 Tablet by mouth in the morning. 90 Tablet 3 11/29/19 24 Active Metoprolol Succinate ER 25 MG Oral Tablet Extended Release 24 Hour (toPROL XL)Indications:P aroxysmal atrial fibrillation ([facility]),Cardiac pacemaker in situ,SSS (sick sinus syndrome) ([facility]),RBBB (right bundle branch block),HTN, goal below 140/90 Take 1 Tablet by mouth in the morning and 1 Tablet before bedtime. 180 Tablet 3 04/01/20 24 Active Ibrutinib 140 MG Oral Capsule (Imbruvica)Indic ations:CLL (chronic lymphocytic leukemia) ([facility]) TAKE 3 CAPSULES BY MOUTH IN THE MORNING. TAKE MEDICATION AT SAME TIME EVERY DAY 90 Capsule 5 08/24/2024 11:24 AM EST 06/07/20 24 025 Active hydroCHLOROthiaz maryse 12.5 MG Oral CapsuleIndicatio ns:HTN, goal below 150/90 Take 1 Capsule by mouth in the morning. 30 Capsule 5 06/12/20 24 Active Atorvastatin Calcium 20 MG Oral Tablet (Lipitor)Indicat ions:Dyslipidemi a, goal LDL below 100 TAKE 1 TABLET BY MOUTH EVERY DAY 90 Tablet 06/25/20 24 Active Apixaban 2.5 MG Oral Tablet (Eliquis) Take 1 Tablet by mouth in the morning and 1 Tablet before bedtime. 06/29/20 24 Active Omeprazole 20 MG Oral Capsule Delayed Release (PriLOSEC) Take 1 Capsule by mouth in the morning and 1 Capsule before bedtime. 60 Capsule 3 07/31/20 24 Active Benzonatate 100 MG Oral Capsule (Tessalon Perles)Indicatio ns:Acute cough Take 1 Capsule by mouth 3 times a day as needed for Cough. Do not cut, crush, or chew. 30 Capsule 09/17/20 24 Active Doxycycline Hyclate 100 MG Oral CapsuleIndicatio ns:Lyme disease Take 1 Capsule by mouth in the morning and 1 Capsule before bedtime. Do all this for 10 days. Until gone.. 20 Capsule 08/08/20 24 024 Discontin ued(Medic ation List Clean Up) Doxycycline Hyclate 100 MG Oral Capsule 1 tab twice a day--add to 10 days for 14 days total Until gone. 8 Capsule 08/10/20 24 024 Discontin ued(Medic ation List Clean Up) documented as of this encounter (statuses as [...] Lung nodule 10/30/2012 Overview (10/22/2018): RLL. Stable [id number]. 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 Consider lulu 5y. 03/24- EGD-stage C0-M1 per [place] criteria. No dysplasia. 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 on [facility] CT--TTE orderd for 6mo 2017- Living [place] copy on file 01/24 colon-WNL [...] P R, 30MCG/0.3ML, IM, 12YRS AND ABOVE (Pfizer-Comirnat) 06/12/2024 COVID-19, MRNA-LNP, PF, 30 M CG/0.3 [...] Sign Reading Time Taken Comments Blood Pressure 94/70 09/17/2024 11:21 AM EST Pulse 78 09/17/2024 11:21 AM EST Temperature 36.4 C (97.6 F) 09/17/2024 1 1:21 AM EST Respiratory Rate - - Oxygen Saturation 98% 09/17/2024 11: 21 AM EST Inhaled Oxygen Concentration - - Weight 83.4 kg (183 lb 14.4 oz) 024 11:21 AM EST Height - - Body Mass Index 27.96 08/08/2024 6:19 PM EDT documented in this encounter Progress Notes * Jasmin Fabian PA-C - 09/17/2024 11:21 AM EST Images from the original note were not included. History of Present Illness Marv Fragoso is a 89 year old male that presents for Acute (Pt had a tick bite appx 5 weeks ago. Reports he is very fatigued in the mornings and gets up late afternoon but high energy at night. Has developed a productive cough and chest congestion on Tuesday. Last night affected his sleep terribly and made him short of breath when coughing. ) Pt also c/o tick bite on his left upper back 5 weeks ago. Was seen at urgent care and was treated right away for erythema migrans. Has completed course of Doxy. Feels like he's more fatigued ever since. Note his CBC last week showing lower hgb from his previous baseline. Cough This is a new problem. The current episode started yesterday. The cough is Productive of sputum. Associated symptoms include rhinorrhea (mild), shortness of breath and wheezing. Pertinent negatives include no chest pain, chills, fever, headaches, postnasal drip or sore throat. Treatments tried: cough drops and tea with honey. Review of Systems: See HPI for pertinent positives. All other review of systems is negative. Physical Exam Vitals: 09/17/24 1121 Temp: 97.6 F (36.4 C) Pulse: 78 SpO2: 98% BP: 94/70 Physical Exam Constitutional: General: He is not in acute distress. Appearance: He is not diaphoretic. HENT: Right Ear: Tympanic membrane, ear canal and external ear normal. Left Ear: Tympanic membrane, ear canal and external ear normal. Mouth/Throat: Mouth: Mucous membranes are moist. Pharynx: Oropharynx is clear. Cardiovascular: Rate and Rhythm: Normal rate and regular rhythm. Pulmonary: Effort: Pulmonary effort is normal. Breath sounds: Normal breath sounds. No wheezing. Abdominal: General: Bowel sounds are normal. Palpations: Abdomen is soft. Musculoskeletal: Cervical back: Normal range of motion and neck supple. Skin: General: Skin is warm and dry. Neurological: General: No focal deficit present. Mental Status: He is alert. Mental status is at baseline. I have reviewed the following results: Assessment and Plan Acute cough No coughing noted today during visit. Will do COVID/Flu/RSV swab today. Tessalon sent PRN cough. Will notify of results when available. - INFLUENZA A/B RSV SARS-COV2,PCR; Future - Benzonatate 100 MG Oral Capsule (Tessalon Perledith); Take 1 Capsule by mouth 3 times a day as needed for Cough. Do not cut, crush, or chew. - INFLUENZA A/B RSV SARS-COV2,PCR Erythema migrans (Lyme disease) Resolved. Fatigue, unspecified type Will update labs to further eval for sources of fatigue. The Lyme was adequately treated. Not much clinical benefit to check Lyme titer today. - CBC WITH WBC DIFFERENTIAL; Future - IRON SCREEN, INCLUDING TIBC; Future - VITAMIN B12; Future - 25-HYDROXY VITAMIN D; Future - TSH WITH FREE T4 IF INDICATED; Future Wrap-Up Follow Up: Return if symptoms worsen or fail to improve. Time: I spent a total of 30-39 minutes (exact time 30 mins) on the date of service in preparation, delivery, and documentation of the care provided to Marv Fragoso excluding any time spent in the performance of separately billed services. documented in this encounter Nursing Notes * Karyna Krishna, MED LYNNE - 09/17/2024 11:26 AM EST Chief Complaint Patient presents with Acute Pt had a tick bite appx 5 weeks ago. Reports he is very fatigued in the mornings and gets up late afternoon but high energy at night. Has developed a productive cough and chest congestion on Tuesday. Last night affected his sleep terribly and made him short of breath when coughing. documented in this encounter Plan of Treatment Upcoming Encounters Date Type Department Care Team (Late st Contact Info) Description 09/25/2024 11:00 AM EST Immunization/Injecti on Hematology/Oncology Treatment, [place] [address] [place] [phone] [place], Chair 3 Hem Onc [facility] [address] [place] [address] 11/06/2024 10:30 AM EST Office Visit Cardiology, [facility] [address] [place] [address] Quyen Connolly CRNP [address] [facility] [place] [id number] 11/15/2024 10:30 AM EST Office Visit Rheumatology [facility] [address] [place], [place] [address] Mario Dover PATerrie [address] [place], [place] [address] 12/04/2024 2:00 PM EST Laboratory Laboratory [facility] [address] [place] [phone] F[place], Lab [facility] [address] [place], [place] [address] 12/11/2024 2:00 PM EST Office Visit Hematology/Oncology [facility] [address] [place] [phone] Jesus Penaloza MD [address] [place] [address] 02/11/2025 9:00 AM EDT Pharmacy Pharmacy Hematology Oncology [facility] [address] [place] [address] c, [facility] Hem/Onc [facility] [place] [address] Pending Results Name Type Priority Associated Diagnoses Date /Time INFLUENZA A/B RSV SARS-COV2,PCR Lab Routine Acute cough 09/17/2024 11:50 AM EST IRON SCREEN, INCLUDING TIBC Lab Routine Fatigue, unspecified type 09/17/2024 12:02 PM EST VITAMIN B12 Lab Routine Fatigue, unspecified type 09/17/2024 12:02 PM EST 25-HYDROXY VITAMIN D Lab Routine Fatigue, unspecified type 09/17/2024 12:02 PM EST TSH WITH FREE T4 IF INDICATED Lab Routine Fatigue, unspecified type 09/17/2024 12:02 PM EST Scheduled Orders Name Type Priority Associated Diagnoses Orde r Schedule INFLUENZA A/B RSV SARS-COV2,PCR Lab Routine Acute cough Expected: 09/17/2024 (Approximate), Expires: 09/17/2025 IRON SCREEN, INCLUDING TIBC Lab Routine Fatigue, unspecified type Expected: 09/17/2024 (Approximate), Expires: 09/17/2025 VITAMIN B12 Lab Routine Fatigue, unspecified type Expected: 09/17/2024 (Approximate), Expires: 09/17/2025 25-HYDROXY VITAMIN D Lab Routine Fatigue, unspecified type Expected: 09/17/2024 (Approximate), Expires: 09/17/2025 TSH WITH FREE T4 IF INDICATED Lab Routine Fatigue, unspecified type Expected: 09/17/2024 (Approximate), Expires: 09/17/2025 Health Maintenance Due Date Last Done Comments [...] Screening 01/26/2025 01/27/2024 CKD PHOS USE SMARTSET 45561 07/10/2025 07/10/2024 CKD HGB USE SMARTSET 87705 09/17/202509/17, 09/17/2024, 09/11/2024, Additional history exists DTap/Tdap Vaccines (3 - Td or Tdap) 06/30/2032 06/30/2022, 10/30/2012 Pneumococcal Vaccine: 65+ Years Completed 07/25/2015, 10/10/2002 Zoster Vaccines Completed 09/26/2019, 06/10, 10/10/2009 VITAMIN D LEVEL ONCE IN A LIFETIME-USE SMARTSET# [id number] Completed 12/16/2023, 12/17/2022 Influenza Vaccine (FLU shot) [...] as of this encounter Visit Diagnoses Diagnosis Acute cough- Primary Erythema migrans (Lyme disease) Lyme disease Fatigue, unspecified type documented in this encounter Care Teams Traveling Nurse Relationship Specialty Start Date End Date Amos Pastrana MD [address] [facility] [place] [address] PCP - General Family Medicine 04/28/24 documented as of this encounter
--- OUTSIDE RECORDS SUMMARY | 2024-10-05 12:32 | External Medical Summary ---
Author Name Unknown Address Unknown Organization K01:[facility] [place] [address] [place] [address] Laboratory Report Ordering Provider Test Date Status AYAKANESTORROSA 09/17/2024 12:02:53 Final Observation Date Value Abnormality Reference (Units ) Status Iron 09/17/2024 12:02:53 21 Below low normal 45-176 (ug/dL) Final Iron-binding capacity 09/17/2024 12:02:53 225 Below low normal 250-425 (ug/dL) Final Transferrin Sat % 09/17/2024 12:02:53 9 Below low normal 15-55 (%) Final Performing Location [facility] [place] [address] [place] [address]
--- OUTSIDE RECORDS SUMMARY | 2024-10-05 12:32 | External Medical Summary ---
Author Name Unknown Address Unknown Organization K01:LABORATORY [facility] [place] - [address] [facility] [address] Laboratory Report Ordering Provider Test Date Status ROSELINE MARLEY 09/17/2024 11:50:41 Final Observation Date Value Abnormality Reference (Units ) Status SARS Coronavirus 2 09/17/2024 11:50:41 Negative N egative Final No SARS-CoV2 Coronavirus RNA detected by PCR (amplified probe).
This automated test was developed and its performance characteristics determined by [facility]. It has not been cleared or approved by the U.S. Food and Drug Administration (FDA). FDA does not require this test to go thru premarket FDA review. This test is used for clinical purposes. It should not be regarded as investigational or for research. This laboratory is certified under the Clinical Laboratory Improvement Amendments (CLIA) as qualified to perform high complexity clinical laboratory testing.

This test is a nucleic acid amplification test (NAAT), a reverse transcriptase polymerase chain reaction (RT-PCR) test, or a Centers for Disease Control-acceptable equivalent. The test is performed in a high complexity Clinical Laboratory Improvement Amendments-(CLIA) certified laboratory. The test is acceptable for SARS-CoV-2 diagnosis, surveillance, and travel within the [place] and to most countries. Please check with local testing authorities about requirements before travel.

The validation of bronchial specimens, tracheal aspirates, and sputum for this assay was developed and performance characteristics determined by [facility]. The validation of alternate specimen types has not been cleared or approved by the U.S. Food and Drug Administration (FDA). It has been determined that such clearance or approval is not necessary. Influenza virus A RNA [Prese nce] in Specimen by [facility] with probe detection 09/17/2024 11:50:41 Negative Negative Final No Influenza A RNA detected by PCR (amplified probe) Influenza virus B RNA [Prese nce] in Specimen by [facility] with probe detection 09/17/2024 11:50:41 Negative Negative Final No Influenza B RNA detected by PCR (amplified probe) Respiratory syncytial virus RNA [Identifier] in Specimen by [facility] with probe detection 09/17/2024 11:50:41 Negative Negative Final No Respiratory Syncytial Vir us RNA detected by PCR (amplified probe) Performing Location LAB[address]ATORY [address] [facility] [address]
--- OUTSIDE RECORDS SUMMARY | 2024-10-05 12:32 | External Medical Summary | Summary of Care ---
Author Name Unknown Organization [facility] Address [address] [place] [address] Phone [phone] Care Team Providers Care Zoogler Name Role Phone Amos Pastrana MD Primary Care Provider + Encounter Details Date Type Department Care Team (Late st Contact Info) Description 09/13/2024 Result Scan Unspecified Department Lianna Keenan China, DO [address], [place] [id number] <No scans attached> Allergies Active Allergy Reactions Criticality Noted Date [...] as of this encounter (statuses as of 09/14/2024) Medications COMBIGAN 0.2-0.5 % OP SOLN Instill 1 Drop into the right eye in the morning and 1 Drop before bedtime. Active Centrum Adults Oral Tablet 1 tab daily 1 Tablet 3 Active Losartan Potassium 50 MG Oral Tablet (Cozaar) Take 1 Tablet by mouth in the morning. 30 Tablet 5 4 Active predniSONE 5 MG Oral Tablet (Deltasone)Indica tions:PMR (polymyalgia rheumatica) ([facility]) Take 1 Tablet by mouth in the morning. 90 Tablet 3 4 Active Metoprolol Succinate ER 25 MG Oral Tablet Extended Release 24 Hour (toPROL XL)Indications:Pa roxysmal atrial fibrillation ([facility]),Cardiac pacemaker in situ,SSS (sick sinus syndrome) ([facility]),RBBB (right bundle branch block),HTN, goal below 140/90 Take 1 Tablet by mouth in the morning and 1 Tablet before bedtime. 180 Tablet 3 4 Active Ibrutinib 140 MG Oral Capsule (Imbruvica)Indica tions:CLL (chronic lymphocytic leukemia) ([facility]) TAKE 3 CAPSULES BY MOUTH [...] as of this encounter (statuses as of 09/14/2024) Active Problems Problem Noted Date Diagnosed Date [...] Lung nodule 10/30/2012 Overview (10/22/2018): RLL. Stable [id number]. 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 Consider lulu 5y. 03/24- EGD-stage C0-M1 per [place] criteria. No dysplasia. 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/28 4.6 thror aneurysm on [facility]--TTE orderd for 6mo [...] as of this encounter (statuses as of 09/14/2024) Immunizations Name Administration Dates Next Due COVID-19 mRNA, LNP-s, No Pre serve, 2-Dose Series (Moderna) 11/19/2021,05/25/2021,12/09/2020,11/04 COVID-19, MRNA-LNP, 24-25, P R, 30MCG/0.3ML, IM, 12YRS AND ABOVE ([employer]-Comirnaty) 06/12/2024 COVID-19, MRNA-LNP, PF, 30 M CG/0.3 [...] 11:00 AM EST Immunization/Injecti on Hematology/Oncology Treatment, [place] [address] [place] [phone] Fanta, Chair 3 Hem Onc [facility] [address] [facility] [place] [address] 11/06/2024 10:30 AM EST Office Visit Cardiology, [facility] [address] [facility] [place] [address] Quyen Connolly CRNP 400 [facility] [place] [address] 11/15/2024 10:30 AM EST Office Visit Rheumatology [facility] [address] [place] [address] Mario Dover PA-C [address] [place] [address] 12/04/2024 2:00 PM EST Laboratory Laboratory [facility] Fanta [place] [address] [place] [phone] F[place], [facility] [address] [facility] [place] [address] 12/11/2024 2:00 PM EST Office Visit Hematology/Oncology [facility] [place] [address] [place] [phone] Jesus Penaloza MD [address] [place] [address] 02/11/2025 9:00 AM EDT Pharmacy Pharmacy Hematology Oncology [facility] [address] [place] [address] [facility] Hem[facility]Onc [address] [place] [address] Health Maintenance Due Date Last Done Comments [...] Screening 01/26/2025 01/27/2024 CKD PHOS USE SMARTSET 41601 07/10/2025 07/10/2024 CKD HGB USE SMARTSET 45099 09/11/202509/11, 09/11/2024, 07/10/2024, Additional history exists DTap/Tdap Vaccines (3 - Td or Tdap) 06/30/2032 06/30/2022, 10/30/2012 Pneumococcal Vaccine: 65+ Years Completed 07/25/2015, 10/10/2002 Zoster Vaccines Completed 09/26/2019, 06/10, 10/10/2009 VITAMIN D LEVEL ONCE IN A LIFETIME-USE SMARTSET# [id number] Completed 12/16/2023, 12/17/2022 Influenza Vaccine (FLU shot) [...] Not on filedocumented as of this encounter Procedures Procedure Name Priority Date/Time Associated Diagnosis Comments CARDIOLOGY SCANNED RESULT 09/13/2024 documented in this encounter Results * CARDIOLOGY SCANNED RESULT (09/13/2024) 09/13/2024 Lianna Keenan DO OTHER Final R esult documented in this encounter Care Teams Zoogler Relationship Specialty Start Date End Date Amos Pastrana MD [address] [place] [address] PCP - General Family Medicine 04/28/24 documented as of this encounter
--- OUTSIDE RECORDS SUMMARY | 2024-10-05 12:32 | External Medical Summary | Summary of Care ---
Author Name Unknown Organization [facility] Address [address] [place] [address] Phone [phone] Care Team Providers Care Screener And Blender Operator Name Role Phone Amos Pastrana MD Primary Care Provider + Encounter Details Date Type Department Care Team (Late st Contact Info) Description 06/24/2024 Telephone Family Practice [facility] [place] [address] [place] [phone] Gabriela Zacarias, 200 [facility] [place] [phone] Allergies Active Allergy Reactions Criticality Noted Date [...] as of this encounter (statuses as of 09/23/2024) Medications COMBIGAN 0.2-0.5 % OP SOLN Instill 1 Drop into the right eye in the morning and 1 Drop before bedtime. Active Centrum Adults Oral Tablet 1 tab daily 1 Tablet 12/07/19 Active Losartan Potassium 50 MG Oral Tablet (Cozaar) Take 1 Tablet by mouth in the morning. 30 Tablet 5 11/11/19 24 Active Additional Information Patient not taking.Reported on 09/17/2024 predniSONE 5 MG Oral Tablet (Deltasone)Bettye cations:PMR (polymyalgia rheumatica) ([facility]) Take 1 Tablet by mouth in the morning. 90 Tablet 3 11/29/19 24 Active Metoprolol Succinate ER 25 MG Oral Tablet Extended Release 24 Hour (toPROL XL)Indications: Paroxysmal atrial fibrillation ([facility]),Cardiac pacemaker in situ,SSS (sick sinus syndrome) ([facility]),RBBB (right bundle branch block),HTN, goal below 140/90 Take 1 Tablet by mouth in the morning and 1 Tablet before bedtime. 180 Tablet 3 04/01/20 24 Active Ibrutinib 140 MG Oral Capsule (Imbruvica)Bettye cations:CLL (chronic lymphocytic leukemia) ([facility]) TAKE 3 CAPSULES BY MOUTH IN THE MORNING. TAKE MEDICATION AT SAME TIME EVERY DAY 90 Capsule 5 4 11:24 AM EST 06/07/20 24 2024 Active hydroCHLOROthia zide 12.5 MG Oral CapsuleIndicati ons:HTN, goal below 150/90 Take 1 Capsule by mouth in the morning. 30 Capsule 5 06/12/20 24 Active Atorvastatin Calcium 20 MG Oral Tablet (Lipitor)Indica tions:Dyslipide nawaf, goal LDL below 100 take 1 tablet by mouth once daily 90 Tablet 3 07/11/20 23 2023 Discontinued Omeprazole 40 MG Oral Capsule Delayed Release (PriLOSEC)Indic ations:Carrington' s esophagus Take 1 Capsule by mouth in the morning and 1 Capsule before bedtime. 180 Capsule 2 05/07/20 24 2023 Discontinued Molnupiravir 200 MG Oral Capsule Take 4 Capsules by mouth in the morning and 4 Capsules before bedtime. Do all this for 5 days. 40 Capsule 06/24/20 24 2023 Discontinued(M edication List Clean Up) documented as of this encounter (statuses as of 09/23/2024) Active Problems Problem Noted Date Diagnosed Date [...] Lung nodule 10/30/2012 Overview (10/22/2018): RLL. Stable [id number]. 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 Consider lulu 5y. 03/24- EGD-stage C0-M1 per [place] criteria. No dysplasia. REC LULU 03/2018 Other specified glaucoma Generalized osteoarthritis Irritable bowel syndrome documented as of this encounter (statuses as of 09/23/2024) Resolved Problems Problem Noted Date Diagnosed Date [...] Thoracic . 10/28 4.6 thror aneurysm on [facility]--TTE orderd for 6mo 2017-f [facility] [place] copy on file 01/24 colon-WNL 01/22 ACC risk 24% declined statin. 11/23 PFTs WNL 06/22 colonoscopy WNL. +int hemorrhoids, divertic. 12/20 fell on ice-UOC rec tendon repair knee 10/22 pt declined prostate screen Bradycardia 10/30/2012 01/07/2020 Dyslipidemia 10/05/2021 Rotator cuff injury 04/28/20 17 Overview (09/06/2012): right documented as of this encounter (statuses as of 09/23/2024) Immunizations Name Administration Dates Next Due COVID-19 mRNA, LNP-s, No Pre serve, 2-Dose Series (Moderna) 11/19/2021,05/25/2021,12/09/2020,11/04 COVID-19, MRNA-LNP, 24-25, P R, 30MCG/0.3ML, IM, 12YRS AND ABOVE ([employer]Flava-ComirnatQMedic) 06/12/2024 COVID-19, MRNA-LNP, PF, 30 M CG/0.3 mL, 12 YRS AND ABOVE, IM ([employer]-Comirnaty) 07/02/2023 COVID-19, MRNA-LNP, PF, 50 M CG/0.5 mL, 12 YRS AND ABOVE, IM (MODERNA-Spikevax) 12/24/2023 Covid-19, Mrna, Lnp-s, Pf, B ivalent, 30 Mcg, IM, 12 yrs and above (9Flava) 02/24/2023,07/01/2022 Pneumococcal Conjugate Vacc, 13 Valent (Prevnar) [...] 11:00 AM EST Immunization/Injecti on Hematology/Oncology Treatment, [place] [address] [place] [phone] Fanta, Chair 3 Hem Onc [facility] [address] [facility] [place] [address] 11/06/2024 10:30 AM EST Office Visit Cardiology, [facility] 132 [facility] [place] [address] Quyen Connolly, JUNAID 400 [facility] [place], [place] [phone] 11/15/2024 10:30 AM EST Office Visit Rheumatology [facility] [address] [place] [address] Mario Dover PATerrie [address] [place] [address] 12/04/2024 2:00 PM EST Laboratory Laboratory [facility] [address] [place] [phone] Fanta Lab [facility] [address] [place] [address] 12/11/2024 2:00 PM EST Office Visit Hematology/Oncology [facility] [address] [place] [phone] Jesus Penaloza MD 200 [place] [address] 02/11/2025 9:00 AM EDT Pharmacy Pharmacy Hematology Oncology [facility] [address] [place] [address] [facility]c [address] [place] [address] 05/15/2025 12:00 PM EDT Office Visit Family Practice [facility] [address] [place] [address] Amos Pastrana MD [address] [place] [address] Health Maintenance Due Date Last Done Comments [...] Screening 01/26/2025 01/27/2024 CKD PHOS USE SMARTSET 47907 07/10/2025 07/10/2024 CKD HGB USE SMARTSET 26291 09/17/202509/17, 09/17/2024, 09/11/2024, Additional history exists DTap/Tdap Vaccines (3 - Td or Tdap) 06/30/2032 06/30/2022, 10/30/2012 Pneumococcal Vaccine: 65+ Years Completed 07/25/2015, 10/10/2002 Zoster Vaccines Completed 09/26/2019, 06/10, 10/10/2009 Influenza Vaccine (FLU shot) Completed 12/2023, 06/15/2023, 06/16/2022, Additional history exists VITAMIN D LEVEL ONCE IN A LIFETIME-USE SMARTSET# 34607 Completed 09/17/2024, 12/16/2023, 12/17/2022 HPV (Gardasil) Vaccine [...] filedocumented as of this encounter Care Teams Screener And Blender Operator Relationship Specialty Start Date End Date Amos Pastrana MD [address] [place] [address] PCP - General Family Medicine 04/28/24 documented as of this encounter
--- OUTSIDE RECORDS SUMMARY | 2024-10-05 12:32 | External Medical Summary | Summary of Care ---
Author Name Unknown Organization [facility] Address [address] [place] [address] Phone [phone] Care Team Providers Care Rand Cementer Name Role Phone Amos Pastrana MD Primary Care Provider + Reason for Visit * Reason Comments Outpatient Testing Encounter Details Date Type Department Care Team (Late st Contact Info) Description 09/18/2024 4:50 PM EST Laboratory Laboratory [facility] [address] [place] [phone] [facility] [place] [address] [place] [address] Iron deficiency anemia, unspecified iron deficiency anemia type Allergies Active Allergy Reactions Criticality Noted [...] as of this encounter (statuses as of 09/18/2024) Medications COMBIGAN 0.2-0.5 % OP SOLN Instill [...] MG Oral Tablet (Deltasone)Indic ations:PMR (polymyalgia rheumatica) ([facility]) Take 1 Tablet by mouth in the morning. 90 Tablet 3 4 Active Metoprolol Succinate ER 25 MG Oral Tablet Extended Release 24 Hour (toPROL XL)Indications:P aroxysmal atrial fibrillation ([facility]),Cardiac pacemaker in situ,SSS (sick sinus syndrome) ([facility]),RBBB (right bundle branch block),HTN, goal below 140/90 Take 1 Tablet by mouth in the morning and 1 Tablet before bedtime. 180 Tablet 3 4 Active Ibrutinib 140 MG Oral Capsule (Imbruvica)Indic ations:CLL (chronic lymphocytic leukemia) ([facility]) [...] as of this encounter (statuses as of 09/18/2024) Active Problems Problem Noted Date Diagnosed Date [...] Lung nodule 10/30/2012 Overview (10/22/2018): RLL. Stable [id number]. 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 Consider lulu 5y. 03/24- EGD-stage C0-M1 per [place] criteria. No dysplasia. REC LULU 03/2018 Other specified glaucoma Generalized osteoarthritis Irritable bowel syndrome documented as of this encounter (statuses as of 09/18/2024) Resolved Problems Problem Noted Date Diagnosed Date [...] per CT surg, ok to d/c monitoring '. 04/27 4.9cm ascending thoracic aorta, root 4.4cm. Refer Dr Winkler Thoracic . 10/28 4.6 thror aneurysm on [facility]--TTE orderd for 6mo 2017-f [facility] [place] copy on file 01/24 colon-WNL 01/22 ACC risk 24% declined statin. 11/23 PFTs WNL 06/22 colonoscopy WNL. +int hemorrhoids, divertic. 12/20 fell on ice-UOC rec tendon repair knee 10/22 pt declined prostate screen Bradycardia 10/30/2012 01/07/2020 Dyslipidemia 10/05/2021 Rotator cuff injury 04/28/20 17 Overview (09/06/2012): right documented as of this encounter (statuses as of 09/18/2024) Immunizations Name Administration Dates Next Due COVID-19 mRNA, LNP-s, No Pre serve, 2-Dose Series (Moderna) 11/19/2021,05/25/2021,12/09/2020,11/04 COVID-19, MRNA-LNP, 24-25, P R, 30MCG/0.3ML, IM, 12YRS AND ABOVE ([employer]-Comirnaty) 06/12/2024 COVID-19, MRNA-LNP, PF, 30 M CG/0.3 [...] 11:00 AM EST Immunization/Injecti on Hematology/Oncology Treatment, [place] [address] [place] [phone] Fanta, Chair 3 Hem Onc [facility] 200 [facility] [place] [address] 11/06/2024 10:30 AM EST Office Visit Cardiology, [facility] [address] [facility] [place] [address] Quyen Connolly CRNP 400 [facility] [place], [place] [phone] 11/15/2024 10:30 AM EST Office Visit Rheumatology [facility] [address] [place] [address] Mario Dover PA-C [address] [place] [address] 12/04/2024 2:00 PM EST Laboratory Laboratory [facility] [place] [address] [place] [phone] Fanta Lab [facility] [address] [place] [address] 12/11/2024 2:00 PM EST Office Visit Hematology/Oncology [facility] 200 [facility] [place] [phone] Jesus Penaloza MD 200 [facility] [place] [address] 02/11/2025 9:00 AM EDT Pharmacy Pharmacy Hematology Oncology [facility] [address] [place] [address] [facility] Hem/Onc [address] [place] [address] Pending Results Name Type Priority Associated Diagnoses Date /Time FECAL OCCULT BLOOD, EIA Lab Routine Iron deficiency anemia, unspecified iron deficiency anemia type 09/18/2024 4:46 PM EST Health Maintenance Due Date Last [...] Screening 01/26/2025 01/27/2024 CKD PHOS USE SMARTSET 04426 07/10/2025 07/10/2024 CKD HGB USE SMARTSET 86071 09/17/202509/17, 09/17/2024, 09/11/2024, Additional history exists DTap/Tdap Vaccines (3 - Td or Tdap) 06/30/2032 06/30/2022, 10/30/2012 Pneumococcal Vaccine: 65+ Years Completed 07/25/2015, 10/10/2002 Zoster Vaccines Completed 09/26/2019, 06/10, 10/10/2009 Influenza Vaccine (FLU shot) Completed 12/2023, 06/15/2023, 06/16/2022, Additional history exists VITAMIN D LEVEL ONCE IN A LIFETIME-USE SMARTSET# 96319 Completed 09/17/2024, 12/16/2023, 12/17/2022 HPV (Gardasil) Vaccine [...] as of this encounter Visit Diagnoses Diagnosis Iron deficiency anemia, unspecified iron deficiency anemia type documented in this encounter Care Teams Rand Cementer Relationship Specialty Start Date End Date Amos Pastrana MD [address] [place] [address] PCP - General Family Medicine 04/28/24 documented as of this encounter
--- OUTSIDE RECORDS SUMMARY | 2024-10-05 12:32 | External Medical Summary ---
Author Name Unknown Address Unknown Organization K01:LABORATORY [facility] [place] - [address] [place] [address] Laboratory Report Ordering Provider Test Date Status AYAKAROSELINE 09/17/2024 12:02:53 Final Deficient: <20 ng/mL
Ins ufficient: 20-29 ng/mL
Recommended/Optimum:30-50 ng/mL

Vitamin D intoxication is rare. If suspicious of Vitamin D toxicity, evaluation of serum Calcium and PTH is recommended. Observation Date Value Abnormality Reference (Units ) Status 25-OH Vitamin D total 09/17/2024 12:02:53 40 >19 (ng/mL) Final Performing Location LABORATORY [facility] [place] - [address] [place] [address]
--- OUTSIDE RECORDS SUMMARY | 2024-10-05 12:32 | External Medical Summary ---
Author Name Unknown Address Unknown Organization K01:LABORATORY [facility] [place] - [address] [place] [address] Laboratory Report Ordering Provider Test Date Status ROSELINE MARLEY 09/17/2024 12:02:53 Final Observation Date Value Abnormality Reference (Units ) Status Vitamin B12 09/17/2024 12:02:53 [phone] (pg/mL) Final Performing Location LABORATORY [facility] - [address] [place] [address]
--- OUTSIDE RECORDS SUMMARY | 2024-10-05 12:32 | External Medical Summary | Summary of Care ---
Author Name Unknown Organization [facility] Address [address] [place] [address] Phone [phone] Care Team Providers Care White Washer Name Role Phone Amos Pastrana MD Primary Care Provider + Reason for Visit * Reason Comments Medication Administration Vitamin B12 Encounter Details Date Type Department Care Team (Late st Contact Info) Description 09/25/2024 11:00 AM EST Immunization/I njection Hematology/Oncology Treatment, [address] [address] F[place], Chair [address] On[address] [address] Vitamin B12 deficiency (dietary) anemia* Allergies Active [...] MG Oral Tablet (Deltasone)Indic ations:PMR (polymyalgia rheumatica) ([facility]) Take 1 Tablet by mouth in the morning. 90 Tablet 3 4 Active Metoprolol Succinate ER 25 MG Oral Tablet Extended Release 24 Hour (toPROL XL)Indications:P aroxysmal atrial fibrillation ([facility]),Cardiac pacemaker in situ,SSS (sick sinus syndrome) ([facility]),RBBB (right bundle branch block),HTN, goal below 140/90 Take 1 Tablet by mouth in the morning and 1 Tablet before bedtime. 180 Tablet 3 4 Active Ibrutinib 140 MG Oral Capsule (Imbruvica)Indic ations:CLL (chronic lymphocytic leukemia) ([facility]) TAKE 3 CAPSULES BY MOUTH [...] Lung nodule 10/30/2012 Overview (10/22/2018): RLL. Stable [id number]. Per pt since Carrington's esophagus 09/06/2012 Overview (04/04/2018): 03/27 path Barretts no dysplasia. Consider lulu 5y. 03/24- EGD-stage C0-M1 per [place] criteria. No dysplasia. REC LULU 03/2018 Other [...] P R, 30MCG/0.3ML, IM, 12YRS AND ABOVE ([employer]-Comirnaty) 06/12/2024 COVID-19, MRNA-LNP, PF, 30 M CG/0.3 [...] as of this encounter Nursing Notes * Madyson Arellano LPN - 09/25/2024 11:13 AM EST Pt arrived for vitamin b12 injection. Administered in R deltoid. Pt tolerated well. To return in 4 weeks. Discharged in stable condition. documented in this encounter Plan of Treatment Upcoming Encounters Date Type Department Care Team (Late st Contact Info) Description 10/23/2024 11:15 AM EST Immunization/Injecti on Hematology/Oncology Treatment, [place] [address] [facility] [address] [address] [place] [address] 11/06/2024 10:30 AM EST Office Visit Cardiology, [facility] 132 [facility] [place] [address] Quyen Connolly CRNP 400 [facility] [place] [phone] 11/15/2024 10:30 AM EST Office Visit Rheumatology [facility] [address] [place] [address] Mario Dover PA-C [address] [place] [address] 12/04/2024 2:00 PM EST Laboratory Laboratory [facility] [address] [place], [place] [phone] [place], Lab [place] 200 [facility] [place] [address] 12/11/2024 2:00 PM EST Office Visit Hematology/Oncology [facility] [place] [address] [place] [phone] Jesus Penaloza MD [address] [place] [address] 02/11/2025 9:00 AM EDT Pharmacy Pharmacy Hematology Oncology [facility] [address] [place] [address] [facility] Hem/[place]c [facility] [place] [address] 05/15/2025 12:00 PM EDT Office Visit Family Practice [facility] [address] [place] [address] Amos Pastrana MD [address] [place] [address] Health Maintenance Due Date Last Done Comments [...] Screening 01/26/2025 01/27/2024 CKD PHOS USE SMARTSET 37968 07/10/2025 07/10/2024 CKD HGB USE SMARTSET 89684 09/17/202509/17, 09/17/2024, 09/11/2024, Additional history exists DTap/Tdap Vaccines (3 - Td or Tdap) 06/30/2032 06/30/2022, 10/30/2012 Pneumococcal Vaccine: 65+ Years Completed 07/25/2015, 10/10/2002 Zoster Vaccines Completed 09/26/2019, 06/10, 10/10/2009 Influenza Vaccine (FLU shot) Completed 12/2023, 06/15/2023, 06/16/2022, Additional history exists VITAMIN D LEVEL ONCE IN A LIFETIME-USE SMARTSET# 07916 Completed 09/17/2024, 12/16/2023, 12/17/2022 HPV (Gardasil) Vaccine [...] 1,000 mcg 1,000 mcg, Intramuscular, ONCE, On Tue09/25/24 at 1145, For 1 doseIndications:Vitami n B12 deficiency (dietary) anemia Given 09/25/2024 11:01 AM EST 1,000 mcg Deltoid Right Upper documented in this encounter Care Teams White Washer Relationship Specialty Start Date End Date Amos Pastrana MD [address] [place] [address] PCP - General Family Medicine 04/28/24 documented as of this encounter
--- OUTSIDE RECORDS SUMMARY | 2024-10-05 12:32 | External Medical Summary ---
Author Name Unknown Address Unknown Organization K01:LABORATORY [facility] [place] - [address] [place] [address] Laboratory Report Ordering Provider Test Date Status ROSELINE MARLEY 09/17/2024 12:02:53 Final Observation Date Value Abnormality Reference (Units ) Status TSH 09/17/2024 12:02:53 1.51 0.27-4.20 (uIU/mL) Final Performing Location LAB[facility]ORY [facility] - [address] [place] [address]
--- OUTSIDE RECORDS SUMMARY | 2024-10-05 12:33 | External Medical Summary | Summary of Care ---
Author Name Unknown Organization [facility] Address [address] [place] [address] Phone [phone] Care Team Providers Care Washroom Cleaner Name Role Phone Amos Pastrana MD Primary Care Provider + Reason for Visit * Reason Comments Return Visit Exhaustion-seen at [facility] for lyme Encounter Details Date Type Department Care Team (Late st Contact Info) Description 08/10/2024 3:40 PM EDT Office Visit Family Practice [facility] [address] [place] [address] Amos Pastrana MD [address] [place] [address] Lyme disease*; Erythema migrans (Lyme disease); HTN, goal below 140/90 Allergies Active Allergy Reactions Criticality Noted Date [...] as of this encounter (statuses as of 08/10/2024) Medications Medication Sig Dispensed Refills Start Date End Date Status COMBIGAN 0.2-0.5 % OP SOLN Instill 1 Drop into the right eye in the morning and 1 Drop before bedtime. Active Centrum Adults Oral Tablet 1 tab daily 1 Tablet 12/07/2022 Active Losartan Potassium 50 MG Oral Tablet (Cozaar) Take 1 Tablet by mouth in the morning. 30 Tablet 5 11/11/2023 Active predniSONE 5 MG Oral Tablet (Deltasone)Indicati ons:PMR (polymyalgia rheumatica) ([facility]) Take 1 Tablet by mouth in the morning. 90 Tablet 3 11/29/2023 Active Metoprolol Succinate ER 25 MG Oral Tablet Extended Release 24 Hour (toPROL XL)Indications:Paro xysmal atrial fibrillation ([facility]),Cardiac pacemaker in situ,SSS (sick sinus syndrome) ([facility]),RBBB (right bundle branch block),HTN, goal below 140/90 Take 1 Tablet by mouth in the morning and 1 Tablet before bedtime. 180 Tablet 3 04/01/2024 Active Ibrutinib 140 MG Oral Capsule (Imbruvica)Indicati ons:CLL (chronic lymphocytic leukemia) ([facility]) TAKE 3 CAPSULES BY MOUTH IN THE MORNING. TAKE MEDICATION AT SAME TIME EVERY DAY 90 Capsule 5 06/07/2024 06/07/2025 Active hydroCHLOROthiazide 12.5 MG Oral CapsuleIndications: HTN, goal below 150/90 Take 1 Capsule by mouth in the morning. 30 Capsule 5 06/12/2024 Active Atorvastatin Calcium 20 MG Oral Tablet (Lipitor)Indication s:Dyslipidemia, goal LDL below 100 TAKE 1 TABLET BY MOUTH EVERY DAY 90 Tablet 2024 Active Apixaban 2.5 MG Oral Tablet (Eliquis) Take 1 Tablet by mouth in the morning and 1 Tablet before bedtime. 06/29/2024 Active Omeprazole 20 MG Oral Capsule Delayed Release (PriLOSEC) Take 1 Capsule by mouth in the morning and 1 Capsule before bedtime. 60 Capsule 3 07/31/2024 Active Doxycycline Hyclate 100 MG Oral CapsuleIndications: Lyme disease Take 1 Capsule by mouth in the morning and 1 Capsule before bedtime. Do all this for 10 days. Until gone.. 20 Capsule 08/08/2024 08/18/2024 Active Doxycycline Hyclate 100 MG Oral Capsule 1 tab twice a day--add to 10 days for 14 days total Until gone. 8 Capsule 08/10/2024 Active documented as of this encounter (statuses as of 08/10/2024) Active Problems Problem Noted Date Diagnosed Date Chronic kidney disease, stage 3a 08/22/2023 Overview: Per CKD protocol Recurrent cellulitis of lower leg 03/21/2023 Iron deficiency anemia 12/20/2022 Sinus bradycardia 12/07/2022 Age-related osteoporosis wit hout current pathological fracture 11/25/2022 History of 2019 novel coronavirus disease (COVID -19) 10/28/2022 Overview: 11/01 PMR (polymyalgia rheumatica) 05/25/2022 Primary osteoarthritis of right knee 11/10/2021 Aldrich's cyst of knee, right 11/10/2021 Sinus node dysfunction 11/10/2021 Thoracic aortic aneurysm without rupture 019 Overview: 04/[address] surg Vitamin B12 deficiency (dietary) anemia 09/01/20 18 CLL (chronic lymphocytic leukemia) 07/18/2017 Overview: Dx 2016-Flow cytometric analysis of the peripheral [...] goal below 140/90 11/30/2013 Lung nodule 10/30/2012 Overview: RLL. Stable [id number]. 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 Consider lulu 5y. 03/24- EGD-stage C0-M1 per [place] criteria. No dysplasia. REC LULU 03/2018 Other specified glaucoma Generalized osteoarthritis Irritable bowel syndrome documented as of this encounter (statuses as of 08/10/2024) Resolved Problems Problem Noted Date Diagnosed Date Resolved Date Recurrent cellulitis 04/19/2023 023 Right leg swelling 03/01/2023 3 Cellulitis of right lower extremity 02/22/2023 03/21/2023 Cutaneous abscess of left lower extremity 11/10/2021 12/07/2022 B12 deficiency 09/05/2018 11/03/2018 Overview: 08/27 start IM B12 Prediabetes 01/16/2018 05/26/2021 Lymphadenopathy of head and neck 05/26/2017 01/07/2020 Lingual tonsil hypertrophy 05/26/2017 0 01/07/2020 Pruritus ani 01/11/2014 04/28/2017 Anal lesion 11/30/2013 04/28/2017 Overview: 11/23 refer surg eval Former smoker 10/15/2013 01/07/2020 Well adult exam 10/30/2012 07/29/2023 Overview: 05/31 normal EF. grad1 Galan. Mild-mod AR. Aortic diam 4.6cm per CT surg, ok to d/c monitoring '04/27 4.9cm ascending thoracic aorta, root 4.4cm. Refer Dr Winkler Thoracic . 10/28 4.6 thror aneurysm on [facility]--TTE orderd for 6mo 2017-f Living [place] copy on file 01/24 colon-WNL 01/22 ACC risk 24% declined statin. 11/23 PFTs WNL 06/22 colonoscopy WNL. +int hemorrhoids, divertic. 12/20 fell on ice-UOC rec tendon repair knee 10/22 pt declined prostate screen Bradycardia 10/30/2012 01/07/2020 Dyslipidemia 10/05/2021 Rotator cuff injury 04/28/20 17 Overview: right documented as of this encounter (statuses as of 08/10/2024) Immunizations Name Administration Dates Next Due COVID-19 mRNA, LNP-s, No Pre serve, 2-Dose Series (Moderna) 11/19/2021,05/25/2021,12/09/2020,11/04 COVID-19, MRNA-LNP, 24-25, P R, 30MCG/0.3ML, IM, 12YRS AND ABOVE ([employer]) 06/12/2024 COVID-19, MRNA-LNP, PF, 30 M CG/0.3 mL, 12 YRS AND ABOVE, IM ([employer]-Comirnaty) 07/02/2023 COVID-19, MRNA-LNP, PF, 50 M CG/0.5 mL, 12 YRS AND ABOVE, IM (MODERNA-Spikevax) 12/24/2023 Covid-19, Mrna, Lnp-s, Pf, B ivalent, 30 Mcg, IM, 12 yrs and above ([employer]) 02/24/2023,07/01/2022 Pneumococcal Conjugate Vacc, 13 Valent (Prevnar) [...] Passive Smoke Exposure: Never Smokeless Tobacco: Never Tobacco Cessation:Counseling Given: Not Answered Alcohol Use Standard Drinks/Week Comments Yes 19 [...] Assigned at Male 04/04/2020 10:22 AM EDT Gender Identity Male 04/04/2020 10:22 AM EDT Sexual Orientation Straight 04/04/2020 10 :22 AM EDT Job Start Date Occupation Industry Not on file Not on file Not on file documented as of this encounter Last Filed Vital Signs Vital Sign Reading Time Taken Comments Blood Pressure 98/62 08/10/2024 3:40 PM EDT Pulse 65 08/10/2024 3:40 PM EDT Temperature - - Respiratory Rate 18 08/10/2024 3:40 PM EDT Oxygen Saturation 97% 08/10/2024 3:40 PM EDT Inhaled Oxygen Concentration - - Weight - - Height - - Body Mass Index - - documented in this encounter Progress Notes * Amos Pastrana MD - 08/10/2024 4:53 PM EDT SUBJECTIVE: Marv Fragoso is a 89 year old male here for Return Visit (Exhaustion-seen at for lyme) . Here for sick visit. 2dago he felt extremely tired all of a sudden. No achy. Chronic urine frequency no change. He developed hypotension 71/63 was its lowest. Yesterday he went to Urgent Care who noted a suspected tick bite with erythema migrans around it on his left posterior shoulder. He was started on empiric doxycycline was given 100 mg twice daily for 10 days. He is taken 4 doses so far and is feeling some improvement. Still quite fatigued. His blood pressures improved 98-131/62-69. No fever no chills. No palpitations no chest pain shortness of breath Physical: BP 98/62 | Pulse 65 | Resp 18 | SpO2 97% General-No apparent Distress, appears fatgiued Head, Eyes, Ears, Nose, Throat--Normocephalic, atraumatic Neck-Supple Lymph-no lymphadenopathy Lungs-Clear to Auscultation bilaterally Cardiovascular--Regular rate & Rhythm, +s1, s2, no murmur Skin-+left post shoulder insect bite with small EM rash Extremities--no edema Neuro-alert & oriented x3 (A69.20) Lyme disease (primary encounter diagnosis) Plan: suspected Cont doxy, additonal 4 d given for 14d total (A69.20) Erythema migrans (Lyme disease) Plan: as above (I10) HTN, goal below 140/90 Plan: hold hydrochlorothiazide for now due to low BP--restart if SBP>130/Galan>90. ER if acute worsening, lightheaded, low Bp etc (This note was completed using the dictation program Fluency Direct. As such, there may be misspellings, word substitutions, or other variations that should not change the essence of the clinical content of this encounter note.If there is need for further clarification, please direct questions to the provider listed above.) Amos Pastrana MD documented in this encounter Nursing Notes * Gloria Santamaria LPN - 08/10/2024 3:40 PM EDT The patient has been properly identified by confirmation of name and date of . Chief Complaint Patient presents with Return Visit Exhaustion-seen at for lyme documented in this encounter Plan of Treatment Upcoming Encounters Date Type Department Care Team (Late st Contact Info) Description 08/28/2024 11:00 AM EST Immunization/Injecti on Hematology/Oncology Treatment, [address] [phone] [place], Chair [address] [address] 09/11/2024 9:00 AM EST Pharmacy Pharmacy Hematology Oncology [facility] [address] [place] [address] [facility] Hem/Onc [address] [place] [address] 09/25/2024 11:00 AM EST Immunization/Injecti on Hematology/Oncology Treatment, [address] [address] F[place], Chair 3 Hem Onc [facility] [address] [place] [address] 11/06/2024 10:30 AM EST Office Visit Cardiology, [facility] [address] [facility] [place] [address] Quyen Connolly CRNP 400 [facility] [place] [phone] 11/15/2024 10:30 AM EST Office Visit Rheumatology [facility] [address] [place], [place] [address] Mario Dover PA-C [address] [place] [address] 12/04/2024 2:00 PM EST Laboratory Laboratory [facility] [address] [place] [phone] [place], Lab [facility] 200 [facility] [place], [place] [address] 12/11/2024 2:00 PM EST Office Visit Hematology/Oncology [facility] [place] [address] [place] [phone] Jesus Penaloza MD [address] [place], [place] [address] Health Maintenance Due Date Last Done Comments Adult Wellness Visit 11/26/2020 11/26/2019 Carrington's Esophagus Surveilance 04/03/2021 04/03/2018, 04/03/2018, 04/01/2015, Additional history exists *BISPHONATE OR OTHER ACCEPTABLE MEDICATION NEEDED FOR OSTEOPOROSIS (REFER TO SMARTSET #1146) 12/30/2023 Albumin/Creatinine Ratio 07/29/2024 07/29/2023, 05/10 COVID-19 Vaccine ( season) 2024 06/12/2024, 12/24/2023, 07/02/2023, Additional history exists DXA Scan 11/10/2024 11/10/2022, 11/10/2022 Depression Screening 01/26/2025 01/27/2024 CKD HGB USE SMARTSET 87446 07/10/202507/10, 07/10/2024, 06/28/2024, Additional history exists CKD PHOS USE SMARTSET 77527 07/10/2025 07/10/2024 DTap/Tdap Vaccines (3 - Td or Tdap) 06/30/2032 06/30/2022, 10/30/2012 Pneumococcal Vaccine: 65+ Years Completed 07/25/2015, 10/10/2002 Zoster Vaccines Completed 09/26/2019, 06/10, 10/10/2009 VITAMIN D LEVEL ONCE IN A LIFETIME-USE SMARTSET# 76594 Completed 12/16/2023, 12/17/2022 Influenza Vaccine (FLU shot) [...] as of this encounter Visit Diagnoses Diagnosis Lyme disease- Primary Erythema migrans (Lyme disease) Lyme disease HTN, goal below 140/90 Unspecified essential hypertension documented in this encounter Care Teams Washroom Cleaner Relationship Specialty Start Date End Date Amos Pastrana MD [address] [place] [address] PCP - General Family Medicine 04/28/24 documented as of this encounter
--- OUTSIDE RECORDS SUMMARY | 2024-10-05 12:33 | External Medical Summary ---
Author Name Unknown Address Unknown Organization K09:[facility]ATORY [facility] - [address] [place] [address] Laboratory Report Ordering Provider Test Date Status EFRAIN VILLALBA 09/11/2024 13:25:03 Final Observation Date Value Abnormality Reference (Units ) Status SYNC LEUKOCYTES IN BLOOD BY AUTOMATED COUNT 09/11/2024 13:25:03 16.90 Above high normal 4.00-10.80 (K/uL) Final Neutrophils/100 leukocytes in Blood by Manual count 09/11/2024 13:25:03 68.0 40.0-75.0 (%) Final Lymphocytes/100 leukocytes in Blood by Manual count 09/11/2024 13:25:03 23.0 18.0-42.0 (%) Final Monocytes/100 leukocytes in Blood by Manual count 09/11/2024 13:25:03 8.0 1.0-11.0 (%) Final Metamyelocytes/100 leukocytes in Blood by Manual count 09/11/2024 13:25:03 1.0 Above high normal <=0.0 (%) Final Neutrophils [#/volume] in Blood by Manual count 09/11/2024 13:25:03 11.49 Above high normal 1.80-7.70 (K/uL) Final Lymphocytes [#/volume] in Blood by Manual count 09/11/2024 13:25:03 3.89 1.00-4.80 (K/uL) Final Monocytes [#/volume] in Blood by Manual count 09/11/2024 13:25:03 1.35 Above high normal 0.00-1.10 (K/uL) Final Metamyelocytes [#/volume] in Blood by Manual count 09/11/2024 13:25:03 0.17 Above high normal <=0.00 (K/uL) Final Nucleated erythrocytes/100 leukocytes [Ratio] in Blood by Automated count 09/11/2024 13:25:03 Final Variant lymphocytes [Presence] in Blood by Light microscopy 09/11/2024 13:25:03 Present Abnormal None Seen Final Smudge cells [Presence] in Blood by Light microscopy 09/11/2024 13:25:03 Present Abnormal None Seen Final Performing Location [facility] [address] [place] [address]
--- OUTSIDE RECORDS SUMMARY | 2024-10-05 12:33 | External Medical Summary | Summary of Care ---
Author Name Unknown Organization [facility] Address [address] [place] [address] Phone [phone] Care Team Providers Care Solution Coordinator Name Role Phone Amos Pastrana MD Primary Care Provider + Reason for Visit * Reason Comments Medication Administration Vitamin b12 Encounter Details Date Type Department Care Team (Late st Contact Info) Description 07/31/2024 3:30 PM EDT Immunization/I njection Hematology/Oncology Treatment, [address] [phone] F[place], Chair 7 Hem On[address] [address] Vitamin B12 deficiency (dietary) anemia* Allergies Active [...] as of this encounter (statuses as of 08/16/2024) Medications Medication Sig Dispensed Refills Start Date [...] MG Oral Tablet (Deltasone)Indicati ons:PMR (polymyalgia rheumatica) ([facility]) Take 1 Tablet by mouth in the morning. 90 Tablet 3 11/29/2023 Active Metoprolol Succinate ER 25 MG Oral Tablet Extended Release 24 Hour (toPROL XL)Indications:Paro xysmal atrial fibrillation ([facility]),Cardiac pacemaker in situ,SSS (sick sinus syndrome) ([facility]),RBBB (right bundle branch block),HTN, goal below 140/90 Take 1 Tablet by mouth in the morning and 1 Tablet before bedtime. 180 Tablet 3 04/01/2024 Active Ibrutinib 140 MG Oral Capsule (Imbruvica)Indicati ons:CLL (chronic lymphocytic leukemia) ([facility]) TAKE 3 CAPSULES BY [...] before bedtime. 60 Capsule 3 07/31/2024 Active documented as of this encounter (statuses as of 08/16/2024) Active Problems Problem Noted Date Diagnosed Date [...] 11/30/2013 Lung nodule 10/30/2012 Overview: RLL. Stable [id number]. 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 Consider lulu 5y. 03/24- EGD-stage C0-M1 per [place] criteria. No dysplasia. REC LULU 03/2018 Other specified glaucoma Generalized osteoarthritis Irritable bowel syndrome documented as of this encounter (statuses as of 08/16/2024) Resolved Problems Problem Noted Date Diagnosed Date [...] Thoracic . 10/28 4.6 thror aneurysm on [facility] CT--TTE orderd for 6mo 2017-f Living [place] copy on file 01/24 colon-WNL 01/22 ACC risk 24% declined statin. 11/23 PFTs WNL 06/22 colonoscopy WNL. +int hemorrhoids, divertic. 12/20 fell on ice-UOC rec tendon repair knee 10/22 pt declined prostate screen Bradycardia 10/30/2012 01/07/2020 Dyslipidemia 10/05/2021 Rotator cuff injury 04/28/20 Overview: right documented as of this encounter (statuses as of 08/16/2024) Immunizations Name Administration Dates Next Due COVID-19 [...] of this encounter Nursing Notes * Madyson Arellano, RECEIVER SETTER - 07/31/2024 3:52 PM EDT Pt arrived for vitamin b12 injection. Administered in L deltoid. Pt tolerated well. To return in 4 weeks. Discharged in stable condition. documented in this encounter Plan of Treatment Upcoming Encounters Date Type Department Care Team (Late st Contact Info) Description 08/28/2024 11:00 AM EST Immunization/Injecti on Hematology/Oncology Treatment, [address], [place] [phone] [place], Chair 7 Hem On[address] [place] [address] 09/11/2024 9:00 AM EST Pharmacy Pharmacy Hematology Oncology [place] [address] [place] [address] [facility] Hem/Onc [address] [place] [address] 09/25/2024 11:00 AM EST Immunization/Injecti on Hematology/Oncology Treatment, [address] [phone] [place], Chair 3 Hem Onc [address] [place] [address] 11/06/2024 10:30 AM EST Office Visit Cardiology, [facility] 132 [facility] [place] [address] Quyen Connolly CRNP 400 [facility] [place] [phone] 11/15/2024 10:30 AM EST Office Visit Rheumatology [place] [address] [facility] [place] [address] Mario Dover PA-C [address] [employer] [facility] [place] [address] 12/04/2024 2:00 PM EST Laboratory Laboratory [facility] [place] [address] [place] [phone] [facility] 200 [facility] [place] [address] 12/11/2024 2:00 PM EST Office Visit Hematology/Oncology [facility] [place] [address] [place] [phone] Jesus Penaloza MD [address] [place] [address] Health Maintenance Due Date Last Done Comments [...] Screening 01/26/2025 01/27/2024 CKD HGB USE SMARTSET 61629 07/10/202507/10, 07/10/2024, 06/28/2024, Additional history exists CKD PHOS USE SMARTSET 38176 07/10/2025 07/10/2024 DTap/Tdap Vaccines (3 - Td or Tdap) 06/30/2032 06/30/2022, 10/30/2012 Pneumococcal Vaccine: 65+ Years Completed 07/25/2015, 10/10/2002 Zoster Vaccines Completed 09/26/2019, 06/10, 10/10/2009 VITAMIN D LEVEL ONCE IN A LIFETIME-USE SMARTSET# 32941 Completed 12/16/2023, 12/17/2022 Influenza Vaccine (FLU shot) [...] 1,000 mcg 1,000 mcg, Intramuscular, ONCE, On Tue07/31/24 at 1630, For 1 dose Given 07/31/2024 3:34 PM EDT 1,000 mcg Deltoid Left Upper documented in this encounter Care Teams Solution Coordinator Relationship Specialty Start Date End Date Amos Pastrana MD [address] [place] [address] PCP - General Family Medicine 04/28/24 documented as of this encounter
--- OUTSIDE RECORDS SUMMARY | 2024-10-05 12:33 | External Medical Summary | Summary of Care ---
Author Name Unknown Organization [facility] Address [address] [place] [address] Phone [phone] Care Team Providers Care Weapons Officer Name Role Phone Amos Pastrana MD Primary Care Provider + Reason for Visit * Reason Comments Outpatient Testing Encounter Details Date Type Department Care Team (Late st Contact Info) Description 09/11/2024 1:10 PM EST Laboratory Laboratory [facility] [address] [place] [phone] [facility] Scenery [address] [place] [address] HTN, goal below 140/90; Chronic kidney disease, stage 3a (HCC); CLL (chronic lymphocytic leukemia) ([facility]) Allergies Active Allergy Reactions Criticality Noted Date [...] as of this encounter (statuses as of 09/11/2024) Medications COMBIGAN 0.2-0.5 % OP SOLN Instill 1 Drop into the right eye in the morning and 1 Drop before bedtime. Active Centrum Adults Oral Tablet 1 tab daily 1 Tablet 3 Active Losartan Potassium 50 MG Oral Tablet (Cozaar) Take 1 Tablet by mouth in the morning. 30 Tablet 5 4 Active predniSONE 5 MG Oral Tablet (Deltasone)Indica tions:PMR (polymyalgia rheumatica) ([facility]) Take 1 Tablet by mouth in the morning. 90 Tablet 3 4 Active Metoprolol Succinate ER 25 MG Oral Tablet Extended Release 24 Hour (toPROL XL)Indications:Pa roxysmal atrial fibrillation ([facility]),Cardiac pacemaker in situ,SSS (sick sinus syndrome) ([facility]),RBBB (right bundle branch block),HTN, goal below 140/90 Take 1 Tablet by mouth in the morning and 1 Tablet before bedtime. 180 Tablet 3 4 Active Ibrutinib 140 MG Oral Capsule (Imbruvica)Indica tions:CLL (chronic lymphocytic leukemia) ([facility]) TAKE 3 CAPSULES BY MOUTH IN THE [...] as of this encounter (statuses as of 09/11/2024) Active Problems Problem Noted Date Diagnosed Date [...] Lung nodule 10/30/2012 Overview (10/22/2018): RLL. Stable [id number]. Per pt since 70s Carrington's esophagus 09/06/2012 Overview (04/04/2018): 6/18 path Barretts no dysplasia. Consider lulu 5y. 03/24- EGD-stage C0-M1 per [place] criteria. No dysplasia. REC LULU 03/2018 Other specified glaucoma Generalized osteoarthritis Irritable bowel syndrome documented as of this encounter (statuses as of 09/11/2024) Resolved Problems Problem Noted Date Diagnosed Date [...] Thoracic . 10/28 4.6 thror aneurysm on [facility]--TTE orderd for 6mo 2016-f [facility] [place] copy on file 01/24 colon-WNL 01/22 ACC risk 24% declined statin. 11/23 PFTs WNL 06/22 colonoscopy WNL. +int hemorrhoids, divertic. 12/20 fell on ice-UOC rec tendon repair knee 10/22 pt declined prostate screen Bradycardia 10/30/2012 01/07/2020 Dyslipidemia 10/05/2021 Rotator cuff injury 04/28/20 17 Overview (09/06/2012): right documented as of this encounter (statuses as of 09/11/2024) Immunizations Name Administration Dates Next Due COVID-19 mRNA, LNP-s, No Pre serve, 2-Dose Series (Moderna) 11/19/2021,05/25/2021,12/09/2020,11/04 COVID-19, MRNA-LNP, 24-25, P R, 30MCG/0.3ML, IM, 12YRS AND ABOVE ([employer] 06/12/2024 COVID-19, MRNA-LNP, PF, 30 M CG/0.3 mL, 12 YRS AND ABOVE, IM ([employer] 07/02/2023 COVID-19, MRNA-LNP, PF, 50 M CG/0.5 [...] Care Team (Late st Contact Info) Description 09/12/2024 9:00 AM EST Pharmacy Pharmacy Hematology Oncology [facility] [address] [place] [address] [facility]c [address] [place] [address] 09/25/2024 11:00 AM EST Immunization/Injecti on Hematology/Oncology Treatment, [place] [address] [place] [phone] [place], Chair [address] Hem On[address] [place] [address] 11/06/2024 10:30 AM EST Office Visit Cardiology, [facility] [address] [facility] [place] [address] Quyen Connolly CRNP [address] [facility] [place] [address] 11/15/2024 10:30 AM EST Office Visit Rheumatology [facility] [address] [place] [address] Mario Dover PA-C [address] [place] [address] 12/04/2024 2:00 PM EST Laboratory Laboratory [facility] [address] [facility] [place] [phone] [facility] [address] [facility] [place], [place] [address] 12/11/2024 2:00 PM EST Office Visit Hematology/Oncology [facility] [place] [address] [facility] [place] [phone] Jesus Penaloza MD [address] [facility] [place], [place] [address] Pending Results Name Type Priority Associated Diagnoses Date /Time CBC WITH WBC DIFFERENTIAL Lab STAT CLL (chronic lymphocytic leukemia) ([facility]) 09/11/2024 1:25 PM EST COMPREHENSIVE METABOLIC PANEL Lab STAT CLL (chronic lymphocytic leukemia) ([facility]) 09/11/2024 1:25 PM EST LD Lab Routine CLL (chronic lymphocytic leukemia) ([facility]) 09/11/2024 1:25 PM EST URIC ACID Lab Routine CLL (chronic lymphocytic leukemia) ([facility]) 09/11/2024 1:25 PM EST CBC Lab STAT CLL (chronic lymphocytic leukemia) ([facility]) 09/11/2024 1:25 PM EST DIFFERENTIAL, AUTOMATED Lab STAT CLL (chronic lymphocytic leukemia) ([facility]) 09/11/2024 1:25 PM EST Health Maintenance Due Date Last [...] Screening 01/26/2025 01/27/2024 CKD HGB USE SMARTSET 25766 07/10/202507/10, 07/10/2024, 06/28/2024, Additional history exists CKD PHOS USE SMARTSET 30507 07/10/2025 07/10/2024 DTap/Tdap Vaccines (3 - Td or Tdap) 06/30/2032 06/30/2022, 10/30/2012 Pneumococcal Vaccine: 65+ Years Completed 07/25/2015, 10/10/2002 Zoster Vaccines Completed 09/26/2019, 06/10, 10/10/2009 VITAMIN D LEVEL ONCE IN A LIFETIME-USE SMARTSET# [id number] Completed 12/16/2023, 12/17/2022 Influenza Vaccine (FLU shot) [...] as of this encounter Visit Diagnoses Diagnosis HTN, goal below 140/90 Unspecified essential hypertension Chronic kidney disease, stage 3a (HCC) CLL (chronic lymphocytic leukemia) (HCC) Chronic lymphoid leukemia, without mention of having achieved remission documented in this encounter Care Teams Weapons Officer Relationship Specialty Start Date End Date Amos Pastrana MD [address] [place] [address] PCP - General Family Medicine 04/28/24 documented as of this encounter
--- OUTSIDE RECORDS SUMMARY | 2024-10-05 12:33 | External Medical Summary | Summary of Care ---
Author Name Unknown Organization [facility] Address [address] [place] [address] Phone [phone] Care Team Providers Care Passport Support Manager Name Role Phone Amos Pastrana MD Primary Care Provider + Reason for Visit * Reason Comments Medication Management Encounter Details Date Type Department Care Team (Late st Contact Info) Description 09/11/2024 9:00 AM [facility] Pharmacy Pharmacy Hematology Oncology [facility] [address] [place] [address] [facility]c [address] [place], [place] [id number] CLL (chronic lymphocytic leukemia) ([facility])* Allergies Active Allergy Reactions Criticality Noted Date [...] MG Oral Tablet (Deltasone)Indica tions:PMR (polymyalgia rheumatica) ([facility]) Take 1 Tablet by mouth in the morning. 90 Tablet 3 4 Active Metoprolol Succinate ER 25 MG Oral Tablet Extended Release 24 Hour (toPROL XL)Indications:Pa roxysmal atrial fibrillation ([facility]),Cardiac pacemaker in situ,SSS (sick sinus syndrome) ([facility]),RBBB (right bundle branch block),HTN, goal below 140/90 Take 1 Tablet by mouth in the morning and 1 Tablet before bedtime. 180 Tablet 3 4 Active Ibrutinib 140 MG Oral Capsule (Imbruvica)Indica tions:CLL (chronic lymphocytic leukemia) ([facility]) TAKE 3 CAPSULES BY MOUTH IN THE [...] Lung nodule 10/30/2012 Overview (10/22/2018): RLL. Stable [id number]. 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 Consider lluu 5y. 03/24- EGD-stage C0-M1 per [place] criteria. No dysplasia. REC LULU 03/2018 Other [...] P R, 30MCG/0.3ML, IM, 12YRS AND ABOVE ([employer]ir[employer]) 06/12/2024 COVID-19, MRNA-LNP, PF, 30 M CG/0.3 mL, 12 YRS AND ABOVE, IM ([facility]-Comirnaty) 07/02/2023 COVID-19, MRNA-LNP, PF, 50 M CG/0.5 [...] on file documented as of this encounter Progress Notes * Candice Escamilla, department of mathematics chair - 09/11/2024 9:53 AM EST MEDICATION THERAPY MANAGEMENT IBRUTINIB (IMBRUVICA) TREATMENT PROGRESS NOTE Marv Fragoso (Bob) [phone] Patient Phone Numbers [email or web address] [phone] Communication: Spoke with Patient Current Treatment: Medication: Ibrutinib (Imbruvica) Indication: CLL Dose: 420mg (3x 140mg cap) daily Administration: +/- food with a full glass of water Start Date: 05/07/2020 Primary Block Handler: Dr. Lucie Penaloza Patient due for q2mo cbcd, cmp, ld, uric acid. Patient scheduled labs for today @ 1:10 PM - [facility]. TUCKER Grey Tech Tap Dancer Hematology Oncology Oral Chemotherapy Clinic Medication Therapy Disease Management [facility] 09/11/24,9:53 AM Time Spent on Encounter: < 5 minutes * Laura Harman OSA - 09/11/2024 9:00 AM EST MEDICATION THERAPY MANAGEMENT IBRUTINIB (IMBRUVICA) TREATMENT PROGRESS NOTE Marv Fragoso (Bob) [phone] Patient Phone Numbers Communication: Left message Current Treatment: Medication: Ibrutinib (Imbruvica) Indication: CLL Dose: 420mg (3x 140mg cap) daily Administration: +/- food with a full glass of water Start Date: 05/07/2020 Primary Block Handler: Dr. Lucie Penaloza Patient due for q2mo cbcd, cmp, ld, uric acid. Message left for patient today. JIMENEZ Velez [employer] Servicer Pharmacy Hematology Oncology Oral Chemotherapy Clinic Medication Therapy Disease Management [facility] 09/11/24 9:45 AM Time Spent on Encounter: < 5 minutes Encounter Group: Hematology Encounter Interventions Item Category: Oral Chemotherapy Ibrutinib Problem/Rationale: Safety: Needs additional monitoring - Medication Requires monitoring Pharmacist Intervention(s): Lab work requested Magnitude of Intervention: Monitoring with no interventions (Level 0) documented in this encounter Plan of Treatment Upcoming Encounters Date Type Department Care Team (Late st Contact Info) Description 09/11/2024 1:10 PM EST Laboratory Laboratory [facility] [place] [address] [place] [phone] [place], Lab [facility] [address] [facility] [place] [address] 09/12/2024 9:00 AM EST Pharmacy Pharmacy Hematology Oncology [facility] [address] [place] [address] [facility] Hem[facility]Onc [address] [place] [address] 09/25/2024 11:00 AM EST Immunization/Injecti on Hematology/Oncology Treatment, [place] [address] [place] [phone] [place], Chair 3 Hem Onc [address] [place] [address] 11/06/2024 10:30 AM EST Office Visit Cardiology, [facility] [address] [facility] [place] [phone] Quyen Connolly CRNP [address] [place] [address] [place] [phone] 11/15/2024 10:30 AM EST Office Visit Rheumatology [facility] [address] [place] [address] Mario Dover PA-C [address] [place], [place] [address] 12/04/2024 2:00 PM EST Laboratory Laboratory [facility] [address] [place], [place] [phone] [facility] [address] [facility] [place] [address] 12/11/2024 2:00 PM EST Office Visit Hematology/Oncology [facility] [address] [place], [place] [phone] Jesus Penaloza MD [address] [place], [place] [address] Health Maintenance Due Date Last Done Comments [...] Screening 01/26/2025 01/27/2024 CKD HGB USE SMARTSET 96390 07/10/202507/10, 07/10/2024, 06/28/2024, Additional history exists CKD PHOS USE SMARTSET 34216 07/10/2025 07/10/2024 DTap/Tdap Vaccines (3 - Td or Tdap) 06/30/2032 06/30/2022, 10/30/2012 Pneumococcal Vaccine: 65+ Years Completed 07/25/2015, 10/10/2002 Zoster Vaccines Completed 09/26/2019, 06/10, 10/10/2009 VITAMIN D LEVEL ONCE IN A LIFETIME-USE SMARTSET# [id number] Completed 12/16/2023, 12/17/2022 Influenza Vaccine (FLU shot) [...] as of this encounter Visit Diagnoses Diagnosis CLL (chronic lymphocytic leukemia) (HCC)- Primary Chronic lymphoid leukemia, without mention of having achieved remission documented in this encounter Care Teams Passport Support Manager Relationship Specialty Start Date End Date Amos Pastrana MD [address] [place] [address] PCP - General Family Medicine 04/28/24 documented as of this encounter
--- OUTSIDE RECORDS SUMMARY | 2024-10-05 12:33 | External Medical Summary | Summary of Care ---
Author Name Unknown Organization [facility] Address [address] [place] [address] Phone [phone] Care Team Providers Care Kiln Firer Helper Name Role Phone Amos Pastrana MD Primary Care Provider + Reason for Visit * Reason Comments Medication Administration B12 injection Encounter Details Date Type Department Care Team (Late st Contact Info) Description 08/28/2024 11:00 AM EST Immunization/I njection Hematology/Oncology Treatment, [address] [phone] [place], Chair [address] On[address] [address] Vitamin B12 deficiency (dietary) anemia* Allergies Active [...] as of this encounter (statuses as of 08/28/2024) Medications COMBIGAN 0.2-0.5 % OP SOLN Instill 1 Drop into the right eye in the morning and 1 Drop before bedtime. Active Centrum Adults Oral Tablet 1 tab daily 1 Tablet 3 Active Losartan Potassium 50 MG Oral Tablet (Cozaar) Take 1 Tablet by mouth in the morning. 30 Tablet 5 4 Active predniSONE 5 MG Oral Tablet (Deltasone)Indica tions:PMR (polymyalgia rheumatica) ([facility]) Take 1 Tablet by mouth in the morning. 90 Tablet 3 4 Active Metoprolol Succinate ER 25 MG Oral Tablet Extended Release 24 Hour (toPROL XL)Indications:Pa roxysmal atrial fibrillation ([facility]),Cardiac pacemaker in situ,SSS (sick sinus syndrome) ([facility]),RBBB (right bundle branch block),HTN, goal below 140/90 Take 1 Tablet by mouth in the morning and 1 Tablet before bedtime. 180 Tablet 3 4 Active Ibrutinib 140 MG Oral Capsule (Imbruvica)Indica tions:CLL (chronic lymphocytic leukemia) ([facility]) TAKE 3 CAPSULES BY MOUTH [...] as of this encounter (statuses as of 08/28/2024) Active Problems Problem Noted Date Diagnosed Date [...] Lung nodule 10/30/2012 Overview (10/22/2018): RLL. Stable [id number]. 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 Consider lulu 5y. 03/24- EGD-stage C0-M1 per [place] criteria. No dysplasia. REC LULU 03/2018 Other specified glaucoma Generalized osteoarthritis Irritable bowel syndrome documented as of this encounter (statuses as of 08/28/2024) Resolved Problems Problem Noted Date Diagnosed Date [...] Thoracic . 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 11/23 PFTs WNL 06/22 colonoscopy WNL. +int hemorrhoids, divertic. 12/20 fell on ice-UOC rec tendon repair knee 10/22 pt declined prostate screen Bradycardia 10/30/2012 01/07/2020 Dyslipidemia 10/05/2021 Rotator cuff injury 04/28/20 17 Overview (09/06/2012): right documented as of this encounter (statuses as of 08/28/2024) Immunizations Name Administration Dates Next Due COVID-19 mRNA, LNP-s, No Pre serve, 2-Dose Series (Moderna) 11/19/2021,05/25/2021,12/09/2020,11/04 COVID-19, MRNA-LNP, 24-25, P R, 30MCG/0.3ML, IM, 12YRS AND ABOVE ([employer]-Comirnaty) 06/12/2024 COVID-19, MRNA-LNP, PF, 30 M CG/0.3 mL, 12 YRS AND ABOVE, IM ([employer]Comirnaty) 07/02/2023 COVID-19, MRNA-LNP, PF, 50 M CG/0.5 [...] this encounter Nursing Notes * Tessa Bautista, JOSEF - 08/28/2024 12:12 PM EST Patient here for b12 injection. Administered in left deltoid per patient preference. Patient tolerated well. Patient left facility in stable condition. documented in this encounter Plan of Treatment Upcoming Encounters Date Type Department Care Team (Late st Contact Info) Description 09/11/2024 9:00 AM EST Pharmacy Pharmacy Hematology Oncology [facility] [address] [place] [address] [facility] Hem[facility]Onc [address] [place] [address] 09/25/2024 11:00 AM EST Immunization/Injecti on Hematology/Oncology Treatment, [place] [address] [place] [phone] F[place], Chair 3 Hem Onc [place] [address] [facility] [address] 11/06/2024 10:30 AM EST Office Visit Cardiology, [facility] [address] [facility] [place] [phone] Quyen Connolly CRNP [address] [facility] [phone] 11/15/2024 10:30 AM EST Office Visit Rheumatology [facility] [address] [facility] [place] [address] Mario Dover PA-C [address] [place], [place] [address] 12/04/2024 2:00 PM EST Laboratory Laboratory [facility] [address] [place] [phone] [place] [address] [place], [place] [address] 12/11/2024 2:00 PM EST Office Visit Hematology/Oncology [facility] [place] [address] [place], [place] [address] Jesus Penaloza MD [address] [place], [place] [address] Health Maintenance Due Date Last Done Comments [...] Screening 01/26/2025 01/27/2024 CKD HGB USE SMARTSET 50546 07/10/202507/10, 07/10/2024, 06/28/2024, Additional history exists CKD PHOS USE SMARTSET 29878 07/10/2025 07/10/2024 DTap/Tdap Vaccines (3 - Td or Tdap) 06/30/2032 06/30/2022, 10/30/2012 Pneumococcal Vaccine: 65+ Years Completed 07/25/2015, 10/10/2002 Zoster Vaccines Completed 09/26/2019, 06/10, 10/10/2009 VITAMIN D LEVEL ONCE IN A LIFETIME-USE SMARTSET# 77010 Completed 12/16/2023, 12/17/2022 Influenza Vaccine (FLU shot) [...] Upper documented in this encounter Care Teams Kiln Firer Helper Relationship Specialty Start Date End Date Amso Pastrana MD [address] [place] [address] PCP - General Family Medicine 04/28/24 documented as of this encounter
--- OUTSIDE RECORDS SUMMARY | 2024-10-05 12:33 | External Medical Summary | Summary of Care ---
Author Name Unknown Organization [facility] Address [address] [place] [address] Phone [phone] Care Team Providers Care Assistant Press Operator Offset Name Role Phone Amos Pastraan MD Primary Care Provider + Reason for Visit * Reason Comments Medication Management Encounter Details Date Type Department Care Team (Late st Contact Info) Description 09/11/2024 9:00 AM [facility] Pharmacy Pharmacy Hematology Oncology [facility] [address] [place] [address] [facility] [place] Hem/Onc [address] [place], [place] [phone] CLL (chronic lymphocytic leukemia) ([facility])* Allergies Active Allergy Reactions Criticality [...] MG Oral Tablet (Deltasone)Indica tions:PMR (polymyalgia rheumatica) ([facility]) Take 1 Tablet by mouth in the morning. 90 Tablet 3 4 Active Metoprolol Succinate ER 25 MG Oral Tablet Extended Release 24 Hour (toPROL XL)Indications:Pa roxysmal atrial fibrillation ([facility]),Cardiac pacemaker in situ,SSS (sick sinus syndrome) ([facility]),RBBB (right bundle branch block),HTN, goal below 140/90 Take 1 Tablet by mouth in the morning and 1 Tablet before bedtime. 180 Tablet 3 4 Active Ibrutinib 140 MG Oral Capsule (Imbruvica)Indica tions:CLL (chronic lymphocytic leukemia) ([facility]) TAKE 3 CAPSULES BY MOUTH [...] Lung nodule 10/30/2012 Overview (10/22/2018): RLL. Stable [id number]. 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 Consider lulu 5y. 03/24- EGD-stage C0-M1 per [place] criteria. No dysplasia. 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 on [facility]--TTE orderd for 6mo 2017-f [...] P R, 30MCG/0.3ML, IM, 12YRS AND ABOVE (MLW Squared-Comirnaty) 06/12/2024 COVID-19, MRNA-LNP, PF, 30 M CG/0.3 mL, 12 YRS AND ABOVE, IM (Iscopia Software-Comirnaty) 07/02/2023 COVID-19, MRNA-LNP, PF, 50 M CG/0.5 [...] this encounter Progress Notes * Candice Escamilla, sales store checker - 09/11/2024 9:53 AM EST MEDICATION THERAPY MANAGEMENT IBRUTINIB (IMBRUVICA) TREATMENT PROGRESS NOTE Marv Fragoso (Bob) [id number] Patient Phone Numbers [facility] [phone] Communication: Spoke with Patient Current Treatment: Medication: Ibrutinib (Imbruvica) Indication: CLL Dose: 420mg (3x 140mg cap) daily Administration: +/- food with a full glass of water Start Date: 05/07/2020 Primary Personnel Representative: Dr. Lucie Penaloza Patient due for q2mo cbcd, cmp, ld, uric acid. Patient scheduled labs for today @ 1:10 PM - [facility]. TUCKER Grey Tech Supervisor Residential Hematology Oncology Oral Chemotherapy Clinic Medication Therapy Disease Management [facility] 09/11/24,9:53 AM Time Spent on Encounter: < 5 minutes * Laura Harman OSA - 09/11/2024 9:00 AM EST MEDICATION THERAPY MANAGEMENT IBRUTINIB (IMBRUVICA) TREATMENT PROGRESS NOTE Marv Fragoso (Bob) [id number] Patient Phone Numbers Communication: Left message Current Treatment: Medication: Ibrutinib (Imbruvica) Indication: CLL Dose: 420mg (3x 140mg cap) daily Administration: +/- food with a full glass of water Start Date: 05/07/2020 Primary Personnel Representative: Dr. Lucie Penaloza Patient due for q2mo cbcd, cmp, ld, uric acid. Message left for patient today. JIMENEZ Velez Site Head Pharmacy Hematology Oncology Oral Chemotherapy Clinic Medication Therapy Disease Management [facility] 09/11/24 9:45 AM Time Spent on Encounter: [...] Description 09/11/2024 1:10 PM EST Laboratory Laboratory [facility] [place] [address] [place] [phone] [place], Lab [facility] [address] [facility] [place] [address] 09/17/2024 9:00 AM EST Pharmacy Pharmacy Hematology Oncology [facility] [address] [place] [address] [facility] [place], [facility] Clinic Hem/Onc [address] [place] [address] 09/25/2024 11:00 AM EST Immunization/Injecti on Hematology/Oncology Treatment, [place] [address] [place] [phone] [place], Chair 3 Hem Onc [facility] [address] [place] [address] 11/06/2024 10:30 AM EST Office Visit Cardiology, [facility] 132 [facility] [place] [phone] Quyen Connolly CRNP [address] [place] [address] [place] [phone] 11/15/2024 10:30 AM EST Office Visit Rheumatology [facility] [address] [place] [address] Mario Dover PA-C [address] [employer] [place], [place] [address] 12/04/2024 2:00 PM EST Laboratory Laboratory [facility] [address] [place], [place] [phone] [facility] 200 [facility] [place], [place] [address] 12/11/2024 2:00 PM EST Office Visit Hematology/Oncology [facility] [address] [place], [place] [phone] Jesus Penaloza MD [address] [place], [place] [address] Health Maintenance Due Date Last Done Comments [...] Screening 01/26/2025 01/27/2024 CKD HGB USE SMARTSET 09438 07/10/202507/10, 07/10/2024, 06/28/2024, Additional history exists CKD PHOS USE SMARTSET 34729 07/10/2025 07/10/2024 DTap/Tdap Vaccines (3 - Td or Tdap) 06/30/2032 06/30/2022, 10/30/2012 Pneumococcal Vaccine: 65+ Years Completed 07/25/2015, 10/10/2002 Zoster Vaccines Completed 09/26/2019, 06/10, 10/10/2009 VITAMIN D LEVEL ONCE IN A LIFETIME-USE SMARTSET# 71133 Completed 12/16/2023, 12/17/2022 Influenza Vaccine (FLU shot) [...] remission documented in this encounter Care Teams Assistant Press Operator Offset Relationship Specialty Start Date End Date Amos Pastrana MD [address] [place] [address] PCP - General Family Medicine 04/28/24 documented as of this encounter
--- OUTSIDE RECORDS SUMMARY | 2024-10-05 12:33 | External Medical Summary ---
Author Name Unknown Address Unknown Organization K09:[facility] [place] [address] Laboratory Report Ordering Provider Test Date Status EFRAIN VILLALBA 09/11/2024 13:25:03 Final Observation Date Value Abnormality Reference (Units ) Status WBC, Total 09/11/2024 13:25:03 16.90 Above high normal 4 .00-10.80 (K/uL) Final RBC 09/11/2024 13:25:03 3.58 4.50-5.25 (M/uL) Final Hemoglobin 09/11/2024 13:25:03 11.7 Below low normal 14 .0-16.8 (g/dL) Final HCT 09/11/2024 13:25:03 36.0 Below low normal 40. 0-48.4 (%) Final MCV 09/11/2024 13:25:03 100.6 82.0-99.5 (fL) Final MCH 09/11/2024 13:25:03 32.7 27.0-34.0 (pg) Final MCHC 09/11/2024 13:25:03 32.5 32.0-36.0 (g/dL) Final RDW 09/11/2024 13:25:03 14.1 11.5-15.5 (%) Final Platelets 09/11/2024 13:25:03 269 140-400 (K /uL) Final MPV 09/11/2024 13:25:03 9.7 6.6-11.1 ( fL) Final Performing Location [facility] [place] [address]
--- OUTSIDE RECORDS SUMMARY | 2024-10-05 12:33 | External Medical Summary | Summary of Care ---
Author Name Unknown Organization [facility] Address [address] [place] [address] Phone [phone] Care Team Providers Care Melter Supervisor Electric Arc Furnace Name Role Phone Amos Pastrana MD Primary Care Provider + Reason for Visit * Reason Comments Medication Administration Vitamin b12 Encounter Details Date Type Department Care Team (Late st Contact Info) Description 07/31/2024 3:30 PM EDT Immunization/I njection Hematology/Oncology Treatment, [address] [phone] [place], Chair [address] [address] Vitamin B12 deficiency (dietary) anemia* Allergies Active [...] as of this encounter (statuses as of 07/31/2024) Medications Medication Sig Dispensed Refills Start Date [...] Tablet (Deltasone)Indicati ons:PMR (polymyalgia rheumatica) ([facility]) Take 1 Tablet by mouth in the morning. 90 Tablet 3 11/29/2023 Active Metoprolol Succinate ER 25 MG Oral Tablet Extended Release 24 Hour (toPROL XL)Indications:Paro xysmal atrial fibrillation ([facility]),Cardiac pacemaker in situ,SSS (sick sinus syndrome) ([facility]),RBBB (right bundle branch block),HTN, goal below 140/90 Take 1 Tablet by mouth in the morning and 1 Tablet before bedtime. 180 Tablet 3 04/01/2024 Active Ibrutinib 140 MG Oral Capsule (Imbruvica)Indicati ons:CLL (chronic lymphocytic leukemia) ([facility]) TAKE 3 CAPSULES BY MOUTH [...] as of this encounter (statuses as of 07/31/2024) Active Problems Problem Noted Date Diagnosed Date [...] 11/30/2013 Lung nodule 10/30/2012 Overview: RLL. Stable [id number]. 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 Consider lulu 5y. 03/24- EGD-stage C0-M1 per [place] criteria. No dysplasia. REC LULU 03/2018 Other specified glaucoma Generalized osteoarthritis Irritable bowel syndrome documented as of this encounter (statuses as of 07/31/2024) Resolved Problems Problem Noted Date Diagnosed Date [...] thror aneurysm on [facility]--TTE orderd for 6mo 2016-f Living [place] copy on file 01/24 colon-WNL 01/22 ACC risk 24% declined statin. 11/23 PFTs WNL 06/22 colonoscopy WNL. +int hemorrhoids, divertic. 12/20 fell on ice-UOC rec tendon repair knee 10/22 pt declined prostate screen Bradycardia 10/30/2012 01/07/2020 Dyslipidemia 10/05/2021 Rotator cuff injury 04/28/20 Overview: right documented as of this encounter (statuses as of 07/31/2024) Immunizations Name Administration Dates Next Due COVID-19 mRNA, LNP-s, No Pre serve, 2-Dose Series (Moderna) 11/19/2021,05/25/2021,12/09/2020,11/04 COVID-19, MRNA-LNP, 23-24, P F, 30 MCG/0.3 mL, 12 YRS AND ABOVE, IM (PFIZER-Comirnaty) 07/02/2023 COVID-19, MRNA-LNP, 23-24, P F, 50 MCG/0.5 mL, 12 YRS AND ABOVE, IM (MODERNA-Spikevax) 12/24/2023 COVID-19, MRNA-LNP, 24-25, P R, 30MCG/0.3ML, IM, 12YRS AND ABOVE (Pfizer-Comirnaty) 06/12/2024 Covid-19, Mrna, Lnp-s, Pf, B ivalent, 30 [...] Nursing Notes * Madyson Arellano LPN - 07/31/2024 3:52 PM EDT Pt arrived for vitamin b12 injection. Administered in L deltoid. Pt tolerated well. To return in 4 weeks. Discharged in stable condition. documented in this encounter Plan of Treatment Upcoming Encounters Date Type Department Care Team (Late st Contact Info) Description 08/28/2024 11:00 AM EST Immunization/Injecti on Hematology/Oncology Treatment, [address], [place] [phone] [place], Chair [address] Hem On[address] [place] [address] 09/11/2024 9:00 AM EST Pharmacy Pharmacy Hematology Oncology [facility] [address] [place] [address] [facility] [place] [facility], [facility] Hem/Onc [address] [place] [address] 09/25/2024 11:00 AM EST Immunization/Injecti on Hematology/Oncology [address], [address] [phone] [place], Chair 3 Hem Onc [address] [place] [address] 11/06/2024 10:30 AM EST Office Visit Cardiology, [facility] 132 [facility] [place] [address] Quyen Connolly CRNP 400 [facility] [place] [phone] 11/15/2024 10:30 AM EST Office Visit Rheumatology [place] [phone] [employer] [place] [address] Mario Dover PA-C [facility] [place] [address] 12/04/2024 2:00 PM EST Laboratory Laboratory [facility] [place] [address] [place] [phone] [facility] 200 [facility] [place] [address] 12/11/2024 1:45 PM EST Office Visit Hematology/Oncology [facility] [place] [address] [place] [address] Jesus Penaloza MD [address] [place] [address] Health Maintenance Due Date Last Done Comments Adult Wellness Visit 11/26/2020 11/26/2019 Carrington's Esophagus Surveilance 04/03/2021 04/03/2018, 04/03/2018, 04/01/2015, Additional history exists *BISPHONATE OR OTHER ACCEPTABLE MEDICATION NEEDED FOR OSTEOPOROSIS (REFER TO SMARTSET #1146) 12/30/2023 Albumin/Creatinine Ratio 07/29/2024 07/29/2023, 05/10 DXA Scan 11/10/2024 11/10/2022, 11/10/2022 Depression Screening 01/26/2025 01/27/2024 CKD HGB USE SMARTSET 19426 07/10/202507/10, 07/10/2024, 06/28/2024, Additional history exists CKD PHOS USE SMARTSET 65493 07/10/2025 07/10/2024 DTap/Tdap Vaccines (3 - Td or Tdap) 06/30/2032 06/30/2022, 10/30/2012 Pneumococcal Vaccine: 65+ Years Completed 07/25/2015, 10/10/2002 Zoster Vaccines Completed 09/26/2019, 06/10, 10/10/2009 VITAMIN D LEVEL ONCE IN A LIFETIME-USE SMARTSET# 50550 Completed 12/16/2023, 12/17/2022 COVID-19 Vaccine Completed 06/12/2024, , 07/02/2023, Additional history exists Influenza Vaccine (FLU shot) Completed 12/2023, 06/15/2023, [...] Upper documented in this encounter Care Teams Melter Supervisor Electric Arc Furnace Relationship Specialty Start Date End Date Amos Pastrana MD [address] [place] [address] PCP - General Family Medicine 04/28/24 documented as of this encounter
--- OUTSIDE RECORDS SUMMARY | 2024-10-05 12:33 | External Medical Summary | Summary of Care ---
Author Name Unknown Organization [facility] Address [address] [place] [address] Phone [phone] Care Team Providers Care Gettering Operator Name Role Phone Amos Pastrana MD Primary Care Provider + Reason for Visit * Reason Comments Fatigue Insect Bite Encounter Details Date Type Department Care Team (Late st Contact Info) Description 08/08/2024 6:45 PM EDT Convenient Care Visit [facility] [address] [place] [address] Tessa Laguerre CRNP [address] [place] [phone] Lyme disease* Allergies Active Allergy Reactions Criticality Noted Date [...] as of this encounter (statuses as of 08/08/2024) Medications Medication Sig Dispensed Refills Start Date [...] MG Oral Tablet (Deltasone)Indicati ons:PMR (polymyalgia rheumatica) ([facility]) Take 1 Tablet by mouth in the morning. 90 Tablet 3 11/29/2023 Active Metoprolol Succinate ER 25 MG Oral Tablet Extended Release 24 Hour (toPROL XL)Indications:Paro xysmal atrial fibrillation ([facility]),Cardiac pacemaker in situ,SSS (sick sinus syndrome) ([facility]),RBBB (right bundle branch block),HTN, goal below 140/90 Take 1 Tablet by mouth in the morning and 1 Tablet before bedtime. 180 Tablet 3 04/01/2024 Active Ibrutinib 140 MG Oral Capsule (Imbruvica)Indicati ons:CLL (chronic lymphocytic leukemia) ([facility]) TAKE 3 CAPSULES BY MOUTH [...] Until gone.. 20 Capsule 08/08/2024 08/18/2024 Active documented as of this encounter (statuses as of 08/08/2024) Active Problems Problem Noted Date Diagnosed Date [...] anemia 09/01/20 CLL (chronic lymphocytic leukemia) 07/18/2017 Overview: Dx 2017-Flow cytometric analysis of the peripheral [...] 11/30/2013 Lung nodule 10/30/2012 Overview: RLL. Stable [id number]. 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 Consider lulu 5y. 03/24- EGD-stage C0-M1 per [place] criteria. No dysplasia. REC LULU 03/2018 Other specified glaucoma Generalized osteoarthritis Irritable bowel syndrome documented as of this encounter (statuses as of 08/08/2024) Resolved Problems Problem Noted Date Diagnosed Date [...] Thoracic . 10/28 4.6 thror aneurysm on [facility] CT--TTE orderd for 6mo 2017-f Living [place] copy on file 01/24 colon-WNL 01/22 ACC risk 24% declined statin. 11/23 PFTs WNL 06/22 colonoscopy WNL. +int hemorrhoids, divertic. 12/20 fell on ice-UOC rec tendon repair knee 10/22 pt declined prostate screen Bradycardia 10/30/2012 01/07/2020 Dyslipidemia 10/05/2021 Rotator cuff injury 04/28/20 Overview: right documented as of this encounter (statuses as of 08/08/2024) Immunizations Name Administration Dates Next Due COVID-19 [...] Never Smokeless Tobacco: Never Tobacco Cessation:Counseling Given: No Alcohol Use Standard Drinks/Week Comments Yes 19 [...] Sign Reading Time Taken Comments Blood Pressure 90/70 08/08/2024 6:19 PM EDT Pulse 70 08/08/2024 6:19 PM EDT Temperature 36.1 C (97 F) 08/08/2024 6:19 PM EDT Respiratory Rate 18 08/08/2024 6:19 PM EDT Oxygen Saturation 97% 08/08/2024 6:19 PM EDT Inhaled Oxygen Concentration - - Weight 81.8 kg (180 lb 6.4 oz) 08/08/2024 6:19 P M EDT Height 172.7 cm (5' 8") 08/08/2024 6:19 PM EDT Body Mass Index 27.43 08/08/2024 6:19 PM EDT documented in this encounter Progress Notes * Tessa Laguerre CRNP - 08/08/2024 7:42 PM EDT [facility] Care Basic Exam Subjective Marv Fragoso is a 89 year old male that presents to the [facility] with fatigue after an insect bite. He has noticed a dark red bullseye sylwia on his left shoulder. Symptoms began about 3 days ago. Objective BP 90/70 | Pulse 70 | Temp 36.1 C (97 F) (Tympanic) | Resp 18 | Ht 1.727 m (5' 8") | Wt 81.8 kg(180 lb 6.4 oz) | SpO2 97% | BMI 27.43 kg/m | BSA 1.98 m Body mass index is 27.43 kg/m. Review of Systems Constitutional: Positive for fatigue. HENT: Negative. Eyes: Negative. Respiratory: Negative. Cardiovascular: Negative. Gastrointestinal: Negative. Genitourinary: Negative. Skin: Positive for rash. Neurological: Negative. Physical Exam Vitals and nursing note reviewed. HENT: Head: Normocephalic. Eyes: Pupils: Pupils are equal, round, and reactive to light. Cardiovascular: Rate and Rhythm: Normal rate. Pulmonary: Effort: Pulmonary effort is normal. Skin: General: Skin is warm and dry. Capillary Refill: Capillary refill takes less than 2 seconds. Findings: Rash present. Comments: Perfect bullseye rash to posterior R shoulder. Neurological: Mental Status: He is alert and oriented to person, place, and time. Past Medical History: Diagnosis Date Anal lesion 11/30/201311/23 refer surg eval B12 deficiency 09/05/201808/27 start IM B12 Carrington's esophagus 11/26/11 Short Segment- repeat EGD in 3 years Bradycardia 10/30/2012 CLL (chronic lymphocytic leukemia) (HCC) 07/18/2017 Dx 2017 Dyslipidemia, goal to be determined Former smoker 10/15/2013 Generalized osteoarthritis History of 2018 novel coronavirus disease (COVID-19) 10/28/202211/01 Hyperlipidemia 01/27/2016 Irritable bowel syndrome Lung nodule 70s Other specified glaucoma Prediabetes 01/16/2018 Prostatitis Pruritus ani 01/11/2014 Recurrent cellulitis of lower leg 03/21/2023 Rotator cuff injury right Sinus bradycardia 12/07/2022 Thoracic aortic aneurysm without rupture ([facility]) 10/22/201804/[address] surg Patient Active Problem List Diagnosis Other specified glaucoma Generalized osteoarthritis Irritable bowel syndrome Carrington's esophagus Lung nodule HTN, goal below 140/90 Dyslipidemia CLL (chronic lymphocytic leukemia) (HCC) Vitamin B12 deficiency (dietary) anemia Thoracic aortic aneurysm without rupture (HCC) Primary osteoarthritis of right knee Aldrich's cyst of knee, right Sinus node dysfunction ([facility]) PMR (polymyalgia rheumatica) ([facility]) History of 2018 novel coronavirus disease (COVID-19) Age-related osteoporosis without current pathological fracture Sinus bradycardia Iron deficiency anemia Recurrent cellulitis of lower leg Chronic kidney disease, stage 3a ([facility]) BP Readings from Last 3 Encounters: 08/08/24 90/70 07/31/24 126/82 07/12/24 112/76 Wt Readings from Last 3 Encounters: 08/08/24 81.8 kg (180 lb 6.4 oz) 07/31/24 82.2 kg (181 lb 3.2 oz) 07/12/24 81.7 kg (180 lb 3.2 oz) Assessment and plan Lyme disease (Primary) - Doxycycline Hyclate 100 MG Oral Capsule; Take 1 Capsule by mouth in the morning and 1 Capsule before bedtime. Do all this for 10 days. Until gone.. No sign of disseminated or late disease, symptoms including fatigue and rash are new within the past 3 days. Will proceed with standard early Lyme regimen of doxy bid x 10 days. Follow up Follow Up: Return if symptoms worsen or fail to improve. Total time today including reviewing chart before the visit, pertinent labs, imaging reports, face to face time, and documentation time was 15 minutes. The above was discussed and understanding was expressed. JUNAID Garcia documented in this encounter Nursing Notes * Tasha Cowan CMA - 08/08/2024 6:17 PM EDT Marv Fragoso is a 89 year old male who presents to walk-in clinic today complaining of Chief Complaint Patient presents with Fatigue Insect Bite Brief history:pt is present with noticeable dark red bullseye sylwia on upper left shoulder, extreme fatigue Onset/duration 3x days. Tried N/A Effectiveness N/A Patient is accompanied by self for today's visit. documented in this encounter Plan of Treatment Upcoming Encounters Date Type Department Care Team (Late st Contact Info) Description 08/10/2024 3:40 PM EDT Office Visit Family [facility] [address] Amos Pastrana MD 132 [facility] [place] [address] 08/28/2024 11:00 AM EST Immunization/Injecti on Hematology/Oncology Treatment, [place] [address] [place] [address] [place], Chair 7 Hem Onc [facility] [address] [facility] [address] [place] [address] 09/11/2024 9:00 AM EST Pharmacy Pharmacy Hematology Oncology [address] [address] [facility] Hem[facility]Onc [address] [facility] [place] [address] 09/25/2024 11:00 AM EST Immunization/Injecti on Hematology/Oncology Treatment, [place] [address] [place] [phone] [place], Chair 3 Hem Onc [facility] 200 [place] [address] 11/06/2024 10:30 AM EST Office Visit Cardiology, [facility] 132 [facility] [place] [address] Quyen Connolly CRNP [address] [facility] [place] [address] 11/15/2024 10:30 AM EST Office Visit Rheumatology [place] [address] [employer] [place], [place] [address] Mario Dover PA-C [address] [employer] [place] [address] 12/04/2024 2:00 PM EST Laboratory Laboratory [facility] [address] [place] [phone] [place], Lab [facility] [place], [place] [address] 12/11/2024 2:00 PM EST Office Visit Hematology/Oncology [facility] [place] [address] [facility] [place] [phone] Jesus Penaloza MD [address] [place], [place] [address] Health Maintenance Due Date Last Done Comments Adult Wellness Visit 11/26/2020 11/26/2019 Carrington's Esophagus Surveilance 04/03/2021 04/03/2018, 04/03/2018, 04/01/2015, Additional history exists *BISPHONATE OR OTHER ACCEPTABLE MEDICATION NEEDED FOR OSTEOPOROSIS (REFER TO SMARTSET #1146) 12/30/2023 Albumin/Creatinine Ratio 07/29/2024 07/29/2023, 05/10 DXA Scan 11/10/2024 11/10/2022, 11/10/2022 Depression Screening 01/26/2025 01/27/2024 CKD HGB USE SMARTSET 25312 07/10/202507/10, 07/10/2024, 06/28/2024, Additional history exists CKD PHOS USE SMARTSET 61236 07/10/2025 07/10/2024 DTap/Tdap Vaccines (3 - Td or Tdap) 06/30/2032 06/30/2022, 10/30/2012 Pneumococcal Vaccine: 65+ Years Completed 07/25/2015, 10/10/2002 Zoster Vaccines Completed 09/26/2019, 06/10, 10/10/2009 VITAMIN D LEVEL ONCE IN A LIFETIME-USE SMARTSET# 20786 Completed 12/16/2023, 12/17/2022 COVID-19 Vaccine Completed 06/12/2024, [...] encounter Visit Diagnoses Diagnosis Lyme disease- Primary documented in this encounter Care Teams Gettering Operator Relationship Specialty Start Date End Date Amos Pastrana MD [address] [place] [address] PCP - General Family Medicine 04/28/24 documented as of this encounter
--- OUTSIDE RECORDS SUMMARY | 2024-10-05 12:33 | External Medical Summary ---
Author Name Unknown Address Unknown Organization K01:[facility] [place] - [address] [place] [address] Laboratory Report Ordering Provider Test Date Status EFRAIN VILLALBA 09/11/2024 13:25:03 Final Observation Date Value Abnormality Reference (Units ) Status Uric Acid 09/11/2024 13:25:03 4.6 3.4-7.0 (m g/dL) Final Performing Location [facility] [place] - [address] [place] [address]
--- OUTSIDE RECORDS SUMMARY | 2024-10-05 12:33 | External Medical Summary ---
Author Name Unknown Address Unknown Organization K01:[facility] [address] [place] [address] Laboratory Report Ordering Provider Test Date Status EFRAIN VILLALBA 09/11/2024 13:25:03 Final Observation Date Value Abnormality Reference (Units ) Status LDH 09/11/2024 13:25:03 259 Above high normal <= 250 (U/L) Final Performing Location [facility] [address] [place] [address]
--- OUTSIDE RECORDS SUMMARY | 2024-10-05 12:33 | External Medical Summary ---
Author Name Unknown Address Unknown Organization K09:[facility] [place] [address] Laboratory Report Ordering Provider Test Date Status EFRAIN VILLALBA 09/11/2024 13:25:03 Final Observation Date Value Abnormality Reference (Units ) Status BUN 09/11/2024 13:25:03 22 Above high normal 6-20 (mg/dL) Final Creatinine 09/11/2024 13:25:03 1.3 Above high normal 0.6-1.2 (mg/dL) Final Glomerular filtration rate/1.73 sq M.predicted [Volume Rate/Area] in Serum, Plasma or Blood by Creatinine-based formula (CKD-EPI) 09/11/2024 13:25:03 55 Below low normal >=60 (mL/min) Final eGFR is calculated based on the CKD-EPI 2020 equation. Sodium 09/11/2024 13:25:03 135 135-146 (m mol/L) Final Potassium 09/11/2024 13:25:03 4.3 3.5-5.1 (m mol/L) Final Cl 09/11/2024 13:25:03 99 98-107 (mm ol/L) Final CO2 09/11/2024 13:25:03 24 22-32 (mmo l/L) Final Anion gap 09/11/2024 13:25:03 12 7-15 (mmol /L) Final Glucose 09/11/2024 13:25:03 112 70-120 (mg /dL) Final Albumin 09/11/2024 13:25:03 3.4 Below low normal 3.8 -5.0 (g/dL) Final AST (Aspartate aminotransferase) 09/11/2024 13:25:03 14 10-50 (U/L) Fin al Alk Phos 09/11/2024 13:25:03 76 35-130 (U/ L) Final Bilirubin, Total 09/11/2024 13:25:03 0.6 <=1 .2 (mg/dL) Final Calcium 09/11/2024 13:25:03 9.3 8.4-10.2 ( mg/dL) Final Protein 09/11/2024 13:25:03 6.2 6.0-8.3 (g /dL) Final ALT (Alanine aminotransferase) 09/11/2024 13:25:03 10 10-50 (U/L) Anselmo batres Performing Location [facility] [address] [place] [address]
--- OUTSIDE RECORDS SUMMARY | 2024-10-05 12:33 | External Medical Summary | Summary of Care ---
Author Name Unknown Organization [facility] Address [address] [place] [address] Phone [phone] Care Team Providers Care Cemetery Workers Supervisor Name Role Phone Amos Pastrana MD Primary Care Provider + Reason for Visit * Reason Comments Medication Management Encounter Details Date Type Department Care Team (Late st Contact Info) Description 09/12/2024 9:00 AM [facility] Pharmacy Pharmacy Hematology Oncology [facility] [address] [place] [address] [facility] Clinic Hem/Onc [address] [place], [place] [id number] CLL (chronic lymphocytic leukemia) ([facility])* Allergies Active Allergy Reactions Criticality Noted Date [...] as of this encounter (statuses as of 09/12/2024) Medications COMBIGAN 0.2-0.5 % OP SOLN Instill 1 Drop into the right eye in the morning and 1 Drop before bedtime. Active Centrum Adults Oral Tablet 1 tab daily 1 Tablet 3 Active Losartan Potassium 50 MG Oral Tablet (Cozaar) Take 1 Tablet by mouth in the morning. 30 Tablet 5 4 Active predniSONE 5 MG Oral Tablet (Deltasone)Indica tions:PMR (polymyalgia rheumatica) ([facility]) Take 1 Tablet by mouth in the morning. 90 Tablet 3 4 Active Metoprolol Succinate ER 25 MG Oral Tablet Extended Release 24 Hour (toPROL XL)Indications:Pa roxysmal atrial fibrillation ([facility]),Cardiac pacemaker in situ,SSS (sick sinus syndrome) ([facility]),RBBB (right bundle branch block),HTN, goal below 140/90 Take 1 Tablet by mouth in the morning and 1 Tablet before bedtime. 180 Tablet 3 4 Active Ibrutinib 140 MG Oral Capsule (Imbruvica)Indica tions:CLL (chronic lymphocytic leukemia) ([facility]) TAKE 3 CAPSULES BY MOUTH IN THE [...] as of this encounter (statuses as of 09/12/2024) Active Problems Problem Noted Date Diagnosed Date [...] Lung nodule 10/30/2012 Overview (10/22/2018): RLL. Stable [id number]. 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 Consider lulu 5y. 03/24- EGD-stage C0-M1 per [place] criteria. No dysplasia. REC LULU 03/2018 Other specified glaucoma Generalized osteoarthritis Irritable bowel syndrome documented as of this encounter (statuses as of 09/12/2024) Resolved Problems Problem Noted Date Diagnosed Date [...] Thoracic . 10/28 4.[address] [facility]--TTE orderd for 6mo 2017-f Living [place] copy on file 01/24 colon-WNL 01/22 ACC risk 24% declined statin. 11/23 PFTs WNL 06/22 colonoscopy WNL. +int hemorrhoids, divertic. 12/20 fell on ice-UOC rec tendon repair knee 10/22 pt declined prostate screen Bradycardia 10/30/2012 01/07/2020 Dyslipidemia 10/05/2021 Rotator cuff injury 04/28/20 17 Overview (09/06/2012): right documented as of this encounter (statuses as of 09/12/2024) Immunizations Name Administration Dates Next Due COVID-19 mRNA, LNP-s, No Pre serve, 2-Dose Series (Moderna) 11/19/2021,05/25/2021,12/09/2020,11/04 COVID-19, MRNA-LNP, 24-25, P R, 30MCG/0.3ML, IM, 12YRS AND ABOVE ([employer]-Comirnaty) 06/12/2024 COVID-19, MRNA-LNP, PF, 30 M CG/0.3 mL, 12 YRS AND ABOVE, IM ([employer]-Comirnaty) 07/02/2023 COVID-19, MRNA-LNP, PF, 50 M CG/0.5 [...] as of this encounter Progress Notes * Rodgers Robinajeni Dumont, [facility] - 09/12/2024 8:25 AM EST MEDICATION THERAPY MANAGEMENT IBRUTINIB (IMBRUVICA) TREATMENT PROGRESS NOTE Marv Fragoso (Bob) [phone] Patient Phone Numbers Communication: Left message requesting return call to assess toleration to therapy Current Treatment: Medication: Ibrutinib (Imbruvica) Indication: CLL Dose: 420mg (3x 140mg cap) daily Administration: +/- food with a full glass of water Start Date: 05/07/2020 Primary Broom Maker: Dr. Lucie Penaloza Supportive Care Meds: Ondansetron Prochlorperazine Prophylactic Meds: Losartan 50mg daily Metoprolol ER 25mg daily Interval History: Per OV 06/05/24, lab monitoring extended to q2mo Allopurinol d/c'ed at [facility] 06/10/20 Dental procedure 02/26/22 Pt reports holding imbruvica 7 days before and after procedure. Reports holding ibrutinib around early February 2024 (~02/13/24) for pacemaker placement 02/20/24 and resuming treatment 3 weeks ago (around 05/01/24) Per MyG 08/21/24, pt advised to continue to HOLD HCTZ due to stable BP Per MyG 09/11/24, pt c/o fatigue secondary to Lyme disease Changes to medication list since last visit? No Assessment and Plan: WBC/ANC elevated ALC WNL Will monitor closely Hgb declining. Will monitor closely BUN and creatinine elevated Encouraged to increase fluid intake Will monitor closely Uric acid WNL - continue to hold allopurinol All other labs stable Continue current therapy and q2mo labs (scheduled 12/04/24 to be reviewed at OV 12/11/24) Assessment of compliance: N/A Assessment of adverse effects attributed to drug therapy: N/A Dose adjustment needed based on lab or adverse drug reaction? No Follow up: 12/11 OV/labs; 02/11 MTM with anticipated labs Robina Rodgers, PharmD, BCOP Clinical Pharmacist, [facility] Oral Chemotherapy [facility] 09/12/2024, 10:30 AM Pertinent labs: Latest Reference Range & Units 06/28/24 11:36 07/10/24 11:23 09/11/24 13:25 WBC 4.00 - 10.80 K/uL 12.76 (H) 10.41 16.90 (H) RBC 4.50 - 5.25 M/uL 4.22 4.12 3.58 HGB 14.0 - 16.8 g/dL 14.2 13.5 (L) 11.7 (L) HCT 40.0 - 48.4 % 41.5 40.8 36.0 (L) MCV 82.0 - 99.5 fL 98.3 99.0 100.6 MCH 27.0 - 34.0 pg 33.6 32.8 32.7 MCHC 32.0 - 36.0 g/dL 34.2 33.1 32.5 RDW 11.5 - 15.5 % 14.0 13.5 14.1 PLT 140 - 400 K/uL 221 221 269 MPV 6.6 - 11.1 fL 10.3 9.9 9.7 CBC WITH WBC DIFFERENTIAL Rpt ! Rpt ! Absolute Neutrophils 1.80 - 7.70 K/uL 5.61 11.49 (H) Absolute Lymphocytes 1.00 - 4.80 K/uL 3.54 3.89 Latest Reference Range & Units 06/28/24 11:36 07/10/24 11:23 09/11/24 13:25 BUN 6 - 20 mg/dL 18 20 22 (H) CREATININE 0.6 - 1.2 mg/dL 1.2 1.4 (H) 1.3 (H) EGFR >=60 mL/min 58 (L) 50 (L) 55 (L) Latest Reference Range & Units 05/11/24 11:26 07/10/24 11:23 09/11/24 13:25 LD <=250 U/L 226 183 259 (H) Uric Acid 3.4 - 7.0 mg/dL 4.6 6.7 4.6 Latest Reference Range & Units 06/28/24 11:36 07/10/24 11:23 09/11/24 13:25 Albumin 3.8 - 5.0 g/dL 4.0 3.8 3.4 (L) AST 10 - 50 U/L 20 16 14 ALT 10 - 50 U/L 14 12 10 Alkaline Phosphatase 35 - 130 U/L 52 54 76 Bilirubin, Total <=1.2 mg/dL 0.4 0.5 0.6 Time Spent on Encounter: 6 - 10 minutes Encounter Group: Hematology Encounter Interventions Item Category: Oral Chemotherapy Ibrutinib Problem/Rationale: Safety: Needs additional monitoring - Medication Requires monitoring Pharmacist Intervention(s): Lab monitoring and Non-pharmacological intervention provided Magnitude of Intervention: Monitoring with direction (Level 1) documented in this encounter Plan of Treatment Upcoming Encounters Date Type Department Care Team (Late st Contact Info) Description 09/25/2024 11:00 AM EST Immunization/Injecti on Hematology/Oncology [facility] [place] [address] [facility] [phone] [place], Chair 3 Hem Onc [address] [place] [address] 11/06/2024 10:30 AM EST Office Visit Cardiology, [facility] [address] [facility] [place] [address] Quyen Connolly CRNP [address] [facility] [place] [phone] 11/15/2024 10:30 AM EST Office Visit Rheumatology [facility] [address] [facility] [place] [address] Mario Dover PA-C [address] [place] [address] 12/04/2024 2:00 PM EST Laboratory Laboratory [facility] [place] [address] [place] [phone] [place], [facility] [address] [facility] [place] [address] 12/11/2024 2:00 PM EST Office Visit Hematology/Oncology [facility] [place] [address] [facility] [place] [phone] Jesus Penaloza MD [address] [place] [address] 02/11/2025 9:00 AM EDT Pharmacy Pharmacy Hematology Oncology [facility] [address] [place] [address] [facility] Hem/Onc [address] [place] [address] Health Maintenance Due Date Last Done Comments [...] Screening 01/26/2025 01/27/2024 CKD PHOS USE SMARTSET 43002 07/10/2025 07/10/2024 CKD HGB USE SMARTSET 36612 09/11/202509/11, 09/11/2024, 07/10/2024, Additional history exists DTap/Tdap Vaccines (3 - Td or Tdap) 06/30/2032 06/30/2022, 10/30/2012 Pneumococcal Vaccine: 65+ Years Completed 07/25/2015, 10/10/2002 Zoster Vaccines Completed 09/26/2019, 06/10, 10/10/2009 VITAMIN D LEVEL ONCE IN A LIFETIME-USE SMARTSET# 76607 Completed 12/16/2023, 12/17/2022 Influenza Vaccine (FLU shot) [...] remission documented in this encounter Care Teams Cemetery Workers Supervisor Relationship Specialty Start Date End Date Amos Pastrana MD [address] [place] [address] PCP - General Family Medicine 04/28/24 documented as of this encounter
--- OUTSIDE RECORDS SUMMARY | 2024-10-05 12:34 | External Medical Summary | Summary of Care ---
Author Name Unknown Organization [facility] Address [address] [place] [address] Phone [phone] Care Team Providers Care Office Machine Installer Name Role Phone Amos Pastrana MD Primary Care Provider + Reason for Visit * Reason Onset Date Comments Appointment 07/24/2024 Egd Encounter Details Date Type Department Care Team (Late st Contact Info) Description 07/24/2024 Telephone Gastroenterology, [place] [address] [place] [address] Specified, No Resource [address] [place] [address] Appointment (Egd ) Allergies Active Allergy Reactions Criticality Noted Date [...] as of this encounter (statuses as of 07/27/2024) Medications Medication Sig Dispensed Refills Start Date [...] MG Oral Tablet (Deltasone)Indicati ons:PMR (polymyalgia rheumatica) ([facility]) Take 1 Tablet by mouth in the morning. 90 Tablet 3 11/29/2023 Active Metoprolol Succinate ER 25 MG Oral Tablet Extended Release 24 Hour (toPROL XL)Indications:Paro xysmal atrial fibrillation ([facility]),Cardiac pacemaker in situ,SSS (sick sinus syndrome) ([facility]),RBBB (right bundle branch block),HTN, goal below 140/90 Take 1 Tablet by mouth in the morning and 1 Tablet before bedtime. 180 Tablet 3 04/01/2024 Active Omeprazole 40 MG Oral Capsule Delayed Release (PriLOSEC)Indicatio ns:Carrington's esophagus Take 1 Capsule by mouth in the morning and 1 Capsule before bedtime. 180 Capsule 2 05/07/2024 Active Ibrutinib 140 MG Oral Capsule (Imbruvica)Indicati ons:CLL (chronic lymphocytic leukemia) ([facility]) TAKE 3 CAPSULES BY MOUTH [...] and 1 Tablet before bedtime. 06/29/2024 Active documented as of this encounter (statuses as of 07/27/2024) Active Problems Problem Noted Date Diagnosed Date [...] 11/30/2013 Lung nodule 10/30/2012 Overview: RLL. Stable 8747-1849. 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 Consider lulu 5y. 03/24- EGD-stage C0-M1 per Baldwin criteria. No dysplasia. REC LULU 03/2018 Other specified glaucoma Generalized osteoarthritis Irritable bowel syndrome documented as of this encounter (statuses as of 07/27/2024) Resolved Problems Problem Noted Date Diagnosed Date [...] Thoracic . 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 11/23 PFTs WNL 06/22 colonoscopy WNL. +int hemorrhoids, divertic. 12/20 fell on ice-UOC rec tendon repair knee 10/22 pt declined prostate screen Bradycardia 10/30/2012 01/07/2020 Dyslipidemia 10/05/2021 Rotator cuff injury 04/28/20 Overview: right documented as of this encounter (statuses as of 07/27/2024) Immunizations Name Administration Dates Next Due COVID-19 mRNA, LNP-s, No Pre serve, 2-Dose Series (Moderna) 11/19/2021,05/25/2021,12/09/2020,11/04 COVID-19, MRNA-LNP, 23-24, P F, 30 MCG/0.3 mL, 12 YRS AND ABOVE, IM ([employer] with a [employer]weet-Comirnaty) 07/02/2023 COVID-19, MRNA-LNP, 23-24, P F, 50 [...] encounter Miscellaneous Notes * Telephone Encounter - Simin Lemus OSA - 07/27/2024 12:56 PM EDT Pt going to check with cardiology to see if his device is a pacemaker or a pacemaker / defibrillator JIMENEZ Vora 07/27/2024 12:57 PM * Telephone Encounter - Laure Gimenez OSA - 07/24/2024 7:12 AM EDT Order UPPER ENDOSCOPY GI REFERRAL OP [[id number]] (Order [id number]) Sigifredo Fragoso 07/23/2024 11:35 AM Patient Message Description: 89 year old male Provider: Amos Pastrana MD Department: [facility] Order Information Date and Time Department Ordering/Authorizing 07/23/2024 9:46 PM [facility] Amos Hancock MD Order Providers Authorizing Provider Encounter Provider ([id number]) Amos Pastrana MD ([id number]) Amos Pastrana MD Priority and Order Details Priority Class Within 10 days (routine) Referral Quantity Ordering Quantity 1 Collection Information Comments Upper Endoscopy ASGE Guidelines Hx dysphagia. Interested in "stretching esophagus". Also hx Barretts ADDITIONAL INFORMATION 1. Is the patient on Coumadin? No. Eliquis--Yes. 2. Is the patient on Pradaxa? No Order Questions Question Answer Referral Priority Within 10 days (routine) Where should this appointment be scheduled? [facility] Referral (Authorized) ID: [id number] Created on: 07/23/2024 Referred by Referred to Amos Pastrana MD Gastroenterology Reason: Ancillary Services Required Priority: Within 10 days (routine) Type: Ancillary Services Visits Requested: 999 Decision Date: 07/23/2024 Start Date: 07/23/2024 Related Appointments None Associated Diagnoses Carrington's esophagus without dysplasia [K22.70] - Primary Dysphagia, unspecified type [R13.10] Encounter View Encounter Reprint Requisition UPPER ENDOSCOPY GI REFERRAL OP (Order #[id number]) on 07/23/24 Detailed Information Priority and Order Details Reference Links Neighborly Acct Guarantor Acct Type [id number] SIGIFREDO FRAGOSO Personal/Family [1] [id number] SIGIFREDO FRAGOSO Personal/Family [1] Service Location Name Address Phone [facility] [address] [facility] [place] [phone] Currently Active Insurance Payor Plan Subscriber Member ID MEDICARE MEDICARE A AND B SIGIFREDO FRAGOSO [id number] R R FRAGOSOKENNY [id number] documented in this encounter Plan of Treatment Upcoming Encounters Date Type Department Care Team (Late st Contact Info) Description 07/31/2024 3:30 PM EDT Immunization/Injecti on Hematology/Oncology Treatment, [place] [address] [place] [phone] [place], Chair [address] [place] [address] 09/11/2024 9:00 AM EST Pharmacy Pharmacy Hematology Oncology [facility] [address] [place] [address] [facility] [place] Clinic Hem/Onc [address] [place] [address] 11/06/2024 10:30 AM EST Office Visit Cardiology, [facility] [address] [facility] [place] [address] Quyen Connolly CRNP [address] [facility] [place] [phone] 11/15/2024 10:30 AM EST Office Visit Rheumatology [place] [phone] [facility] [place] [address] Mario Dover PA-C [address] [place] [address] 12/04/2024 2:00 PM EST Laboratory Laboratory [facility] [address] [place], [place] [phone] [place] [facility] [address] [facility] [address] [place] [address] 12/11/2024 1:45 PM EST Office Visit Hematology/Oncology [facility] [place] [address] [place] [phone] Jesus Penaloza MD [address] [facility] [place], [place] [address] Scheduled Procedures Name Priority Associated Diagnoses Date/Ti me ESOPHAGOGASTRODUODENOSCOPY ( EGD), FLEXIBLE, TRANSORAL, DIAGNOSTIC Carrington's esophagus Dysphagia Health Maintenance Due Date Last Done Comments Adult Wellness Visit 11/26/2020 11/26/2019 Carrington's Esophagus Surveilance 04/03/2021 04/03/2018, 04/03/2018, 04/01/2015, Additional history exists *BISPHONATE OR OTHER ACCEPTABLE MEDICATION NEEDED FOR OSTEOPOROSIS (REFER TO SMARTSET #1146) 12/30/2023 Albumin/Creatinine Ratio 07/29/2024 07/29/2023, 05/10 DXA Scan 11/10/2024 11/10/2022, 11/10/2022 Depression Screening 01/26/2025 01/27/2024 CKD HGB USE SMARTSET 13144 07/10/202507/10, 07/10/2024, 06/28/2024, Additional history exists CKD PHOS USE SMARTSET 89319 07/10/2025 07/10/2024 DTap/Tdap Vaccines (3 - Td or Tdap) 06/30/2032 06/30/2022, 10/30/2012 Pneumococcal Vaccine: 65+ Years Completed 07/25/2015, 10/10/2002 Zoster Vaccines Completed 09/26/2019, 06/10, 10/10/2009 VITAMIN D LEVEL ONCE IN A LIFETIME-USE SMARTSET# 59904 Completed 12/16/2023, 12/17/2022 COVID-19 Vaccine Completed 06/12/2024, [...] filedocumented as of this encounter Care Teams Office Machine Installer Relationship Specialty Start Date End Date Amos Pastrana MD [address] [place] [address] PCP - General Family Medicine 04/28/24 documented as of this encounter
--- OUTSIDE RECORDS SUMMARY | 2024-10-05 12:34 | External Medical Summary | Summary of Care ---
Author Name Unknown Organization [facility] Address [address] [place] [address] Phone [phone] Care Team Providers Care Poultry Husbandman Name Role Phone Amos Pastrana MD Primary Care Provider + Encounter Details Date Type Department Care Team (Late st Contact Info) Description 07/30/2024 Documentation Cardiology, [address] [address] Nikole Cabezas RN Allergies Active Allergy Reactions Criticality Noted Date [...] as of this encounter (statuses as of 07/30/2024) Medications Medication Sig Dispensed Refills Start Date [...] MG Oral Tablet (Deltasone)Indicati ons:PMR (polymyalgia rheumatica) ([facility]) Take 1 Tablet by mouth in the morning. 90 Tablet 3 11/29/2023 Active Metoprolol Succinate ER 25 MG Oral Tablet Extended Release 24 Hour (toPROL XL)Indications:Paro xysmal atrial fibrillation ([facility]),Cardiac pacemaker in situ,SSS (sick sinus syndrome) ([facility]),RBBB (right bundle branch block),HTN, goal below [...] Oral Capsule (Imbruvica)Indicati ons:CLL (chronic lymphocytic leukemia) ([facility]) TAKE 3 CAPSULES BY MOUTH IN [...] as of this encounter (statuses as of 07/30/2024) Active Problems Problem Noted Date Diagnosed Date [...] 11/30/2013 Lung nodule 10/30/2012 Overview: RLL. Stable [id number]. 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 Consider lulu 5y. 03/24- EGD-stage C0-M1 per [place] criteria. No dysplasia. REC LULU 03/2018 Other specified glaucoma Generalized osteoarthritis Irritable bowel syndrome documented as of this encounter (statuses as of 07/30/2024) Resolved Problems Problem Noted Date Diagnosed Date [...] Thoracic . 10/28 4.6 thror aneurysm on [facility] CT--TTE orderd for 6mo 2016- Living [place] copy on file 01/24 colon-WNL 01/22 ACC risk 24% declined statin. 11/23 PFTs WNL 06/22 colonoscopy WNL. +int hemorrhoids, divertic. 12/20 fell on ice-UOC rec tendon repair knee 10/22 pt declined prostate screen Bradycardia 10/30/2012 01/07/2020 Dyslipidemia 10/05/2021 Rotator cuff injury 04/28/20 Overview: right documented as of this encounter (statuses as of 07/30/2024) Immunizations Name Administration Dates Next Due COVID-19 [...] as of this encounter Progress Notes * Nikole Cabezas, JOSEF - 07/30/2024 12:46 PM EDT Patient is calling to ask questions about his pacemaker. In prep for Gastro testing He has a [employer] dual chamber pacemaker. Full implant data is scanned under the Media tab. Implant date 02/15/2024 Pacer- [employer] Dennis- Assurity MRI 2272- Serial # [id number] Atrial -[employer] Dennis- - Serial # [id number] RV lead- Left Bundle pacing- [employer]- - Serial # [id number] Nikole Cabezas RN documented in this encounter Plan of Treatment Upcoming Encounters Date Type Department Care Team (Latest Contact Info) Description 07/31/2024 12:00 PM EDT Office Visit Gastroenterolog y, [facility] [address] [place] [address] Andreia Munguia CRNP [address] [place] [address] 07/31/2024 3:30 PM EDT Immunization/Inj ection Hematology/Onco logy Treatment, [address] [place] [address] [place]anta, Chair 7 Hem Onc [facility] [address] [place] [address] 08/22/2024 2:30 PM EST Hospital Encounter ENDO [facility], Endoscopy Room [facility] [address] [place] [phone] Dee Baltazar, DO [address] [place] [address] 08/22/2024 2:30 PM EST - 08/22/2024 3:00 PM EST Surgery ENDO [facility], Endoscopy Room [facility] [address] [place] [phone] Dee Baltazar, DO [address] [place] [address] ESOPHAGOGASTRODUODENOSCOPY (EGD), FLEXIBLE, TRANSORAL, DIAGNOSTIC 09/11/2024 9:00 AM EST Pharmacy Pharmacy Hematology Oncology [facility] [place] [address] [place] [address] [facility], [facility] Hem/Onc [address] [place] [address] 11/06/2024 10:30 AM EST Office Visit Cardiology, [facility] 132 [facility] [place] [address] Quyen Connolly CRNP [address] [facility] [place] [phone] 11/15/2024 10:30 AM EST Office Visit Rheumatology [place] [phone] [employer] [place] [address] Mario [place] PA-C [address] [facility] [place] [address] 12/04/2024 2:00 PM EST Laboratory Laboratory [facility] [address] [place] [phone] [place] [facility] [address] [facility] [place] [address] 12/11/2024 1:45 PM EST Office Visit Hematology/Onco logy [facility] [place] [address] [place] [phone] Jesus Penaloza MD [address] [place] [address] Scheduled Procedures Name Priority Associated Diagnoses Date/Ti ny ESOPHAGOGASTRODUODENOSCOPY ( EGD), FLEXIBLE, TRANSORAL, DIAGNOSTIC Carrington's esophagus Dysphagia 08/22/2024 2:30 PM EST Health Maintenance Due Date Last Done Comments Adult Wellness Visit 11/26/2020 11/26/2019 Carrington's Esophagus Surveilance 04/03/2021 04/03/2018, 04/03/2018, 04/01/2015, Additional history exists *BISPHONATE OR OTHER ACCEPTABLE MEDICATION NEEDED FOR OSTEOPOROSIS (REFER TO SMARTSET #1146) 12/30/2023 Albumin/Creatinine Ratio 07/29/2024 07/29/2023, 05/10 DXA Scan 11/10/2024 11/10/2022, 11/10/2022 Depression Screening 01/26/2025 01/27/2024 CKD HGB USE SMARTSET 31286 07/10/202507/10, 07/10/2024, 06/28/2024, Additional history exists CKD PHOS USE SMARTSET 16887 07/10/2025 07/10/2024 DTap/Tdap Vaccines (3 - Td or Tdap) 06/30/2032 06/30/2022, 10/30/2012 Pneumococcal Vaccine: 65+ Years Completed 07/25/2015, 10/10/2002 Zoster Vaccines Completed 09/26/2019, 06/10, 10/10/2009 VITAMIN D LEVEL ONCE IN A LIFETIME-USE SMARTSET# 97992 Completed 12/16/2023, 12/17/2022 COVID-19 Vaccine Completed 06/12/2024, [...] filedocumented as of this encounter Care Teams Poultry Husbandman Relationship Specialty Start Date End Date Amos Pastrana MD [address] [place] [address] PCP - General Family Medicine 04/28/24 documented as of this encounter
--- OUTSIDE RECORDS SUMMARY | 2024-10-05 12:34 | External Medical Summary | Summary of Care ---
Author Name Unknown Organization [facility] Address [address] [place] [address] Phone [phone] Care Team Providers Care Resident Director Name Role Phone Amos Pastrana MD Primary Care Provider + Encounter Details Date Type Department Care Team (Late st Contact Info) Description 07/13/2024 Orders Only Hematology/Oncology [facility] [place] 200 [facility] [place] [phone] Jesus Penaloza MD 200 [facility] [place] [address] CLL (chronic lymphocytic leukemia) ([facility])* Allergies Active Allergy Reactions Criticality Noted Date [...] as of this encounter (statuses as of 07/13/2024) Medications Medication Sig Dispensed Refills Start Date [...] Tablet (Deltasone)Indicati ons:PMR (polymyalgia rheumatica) ([facility]) Take 1 Tablet by mouth in the morning. 90 Tablet 3 11/29/2023 Active Metoprolol Succinate ER 25 MG Oral Tablet Extended Release 24 Hour (toPROL XL)Indications:Paro xysmal atrial fibrillation ([facility]),Cardiac pacemaker in situ,SSS (sick sinus syndrome) ([facility]),RBBB (right bundle branch block),HTN, goal [...] (Imbruvica)Indicati ons:CLL (chronic lymphocytic leukemia) ([facility]) TAKE 3 CAPSULES BY MOUTH [...] as of this encounter (statuses as of 07/13/2024) Active Problems Problem Noted Date Diagnosed Date [...] 11/30/2013 Lung nodule 10/30/2012 Overview: RLL. Stable [id number]. 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 Consider lulu 5y. 03/24- EGD-stage C0-M1 per [place] criteria. No dysplasia. REC LULU 03/2018 Other specified glaucoma Generalized osteoarthritis Irritable bowel syndrome documented as of this encounter (statuses as of 07/13/2024) Resolved Problems Problem Noted Date Diagnosed Date [...] Thoracic . 10/28 4.6 thror aneurysm on [facility]--TTE orderd for 6mo 2016-f Living [place] copy on file 01/24 colon-WNL 01/22 ACC risk 24% declined statin. 11/23 PFTs WNL 06/22 colonoscopy WNL. +int hemorrhoids, divertic. 12/20 fell on ice-UOC rec tendon repair knee 10/22 pt declined prostate screen Bradycardia 10/30/2012 01/07/2020 Dyslipidemia 10/05/2021 Rotator cuff injury 04/28/20 17 Overview: right documented as of this encounter (statuses as of 07/13/2024) Immunizations Name Administration Dates Next Due COVID-19 mRNA, LNP-s, No Pre serve, 2-Dose Series (Moderna) 11/19/2021,05/25/2021,12/09/2020,11/04 COVID-19, MRNA-LNP, 23-24, P F, 30 MCG/0.3 mL, 12 YRS AND ABOVE, IM (charming charlie-Comirnaty) 07/02/2023 COVID-19, MRNA-LNP, 23-24, P F, 50 [...] Department Care Team (Latest Contact Info) Description 07/16/2024 9:00 AM EDT Pharmacy Pharmacy Hematology Oncology [facility], [place] [address] [place] [address] [facility] Hem/Onc [address] [place] [address] CLL (chronic lymphocytic leukemia) (HCC)* 07/31/2024 3:30 PM EDT Immunization/Inject ion Hematology/Oncolog y Treatment, [place] [address] [place] [address] F[place], Chair 7 Hem Onc [address] [place] [phone] 09/11/2024 9:00 AM EST Pharmacy Pharmacy Hematology Oncology [facility], [place] [address] [place] [address] [facility] Hem/Onc [address] [place] [address] 11/06/2024 10:30 AM EST Office Visit Cardiology, [facility] [address] [facility] [place] [address] Quyen Connolly, JUNAID [address] [place] [address] 11/15/2024 10:30 AM EST Office Visit Rheumatology [facility] [address] [place] [address] Mario Dover PA-C [address] [facility] [place] [address] 12/04/2024 2:00 PM EST Laboratory Laboratory Scene [place] [address] [place] [phone] [place], Lab Scenery [address] [place] [address] 12/11/2024 1:45 PM EST Office Visit Hematology/Oncolog y [facility] [place] [address] [place] [address] Jesus Penaloza MD 200 [facility] [place], [place] [address] Scheduled Orders Name Type Priority Associated Diagnoses Orde r Schedule CBC WITH WBC DIFFERENTIAL Lab STAT CLL (chronic lymphocytic leukemia) ([facility]) Every 2 Months for 6 Occurrences starting 07/13/2024 until 07/13/2025 COMPREHENSIVE METABOLIC PANEL Lab STAT CLL (chronic lymphocytic leukemia) ([facility]) Every 2 Months for 6 Occurrences starting 07/13/2024 until 07/13/2025 LD Lab Routine CLL (chronic lymphocytic leukemia) ([facility]) Every 2 Months for 6 Occurrences starting 07/13/2024 until 07/13/2025 URIC ACID Lab Routine CLL (chronic lymphocytic leukemia) ([facility]) Every 2 Months for 6 Occurrences starting 07/13/2024 until 07/13/2025 Health Maintenance Due Date Last Done Comments Adult Wellness Visit 11/26/2020 11/26/2019 Carrington's Esophagus Surveilance 04/03/2021 04/03/2018, 04/03/2018, 04/01/2015, Additional history exists *BISPHONATE OR OTHER ACCEPTABLE MEDICATION NEEDED FOR OSTEOPOROSIS (REFER TO SMARTSET #1146) 12/30/2023 Albumin/Creatinine Ratio 07/29/2024 07/29/2023, 05/10 DXA Scan 11/10/2024 11/10/2022, 11/10/2022 Depression Screening 01/26/2025 01/27/2024 CKD HGB USE SMARTSET 89486 07/10/202507/10, 07/10/2024, 06/28/2024, Additional history exists CKD PHOS USE SMARTSET 76532 07/10/2025 07/10/2024 DTap/Tdap Vaccines (3 - Td or Tdap) 06/30/2032 06/30/2022, 10/30/2012 Pneumococcal Vaccine: 65+ Years Completed 07/25/2015, 10/10/2002 Zoster Vaccines Completed 09/26/2019, 06/10, 10/10/2009 VITAMIN D LEVEL ONCE IN A LIFETIME-USE SMARTSET# 00048 Completed 12/16/2023, 12/17/2022 COVID-19 Vaccine Completed 06/12/2024, [...] leukemia, without mention of having achieved remission CLL (chronic lymphocytic leukemia) (HCC)- Primary Chronic lymphoid leukemia, without mention of having achieved remission documented in this encounter Care Teams Resident Director Relationship Specialty Start Date End Date Amos Pastrana MD [address] [place] [address] PCP - General Family Medicine 04/28/24 documented as of this encounter
--- OUTSIDE RECORDS SUMMARY | 2024-10-05 12:34 | External Medical Summary | Summary of Care ---
Author Name Unknown Organization [facility] Address [address] [place] [address] Phone [phone] Care Team Providers Care Shipping Technician Name Role Phone Amos Pastrana MD Primary Care Provider + Reason for Visit * Reason Comments Medication Management Encounter Details Date Type Department Care Team (Late st Contact Info) Description 07/16/2024 9:00 AM EDT Pharmacy Pharmacy Hematology Oncology [facility] [address] [place] [address] Gm, [facility] Hem/Onc [address] [place], [place] [phone] CLL (chronic lymphocytic leukemia) ([facility])* Allergies Active Allergy Reactions Criticality Noted Date [...] 11/11/2023 Active predniSONE 5 MG Oral Tablet (Deltasone)Indicat ions:PMR (polymyalgia rheumatica) ([facility]) Take 1 Tablet by mouth in the morning. 90 Tablet 3 11/29/2023 Active Metoprolol Succinate ER 25 MG Oral Tablet Extended Release 24 Hour (toPROL XL)Indications:Par oxysmal atrial fibrillation ([facility]),Cardiac pacemaker in situ,SSS (sick sinus syndrome) ([facility]),RBBB (right bundle branch block),HTN, goal below 140/90 Take 1 Tablet by mouth in the morning and 1 Tablet before bedtime. 180 Tablet 3 04/01/2024 Active Omeprazole 40 MG Oral Capsule Delayed Release (PriLOSEC)Indicati ons:Carrington's esophagus Take 1 Capsule by mouth in the morning and 1 Capsule before bedtime. 180 Capsule 2 05/07/2024 Active Ibrutinib 140 MG Oral Capsule (Imbruvica)Indicat ions:CLL (chronic lymphocytic leukemia) ([facility]) TAKE 3 CAPSULES BY MOUTH IN THE MORNING. TAKE MEDICATION AT SAME TIME EVERY DAY 90 Capsule 5 06/07/2024 5 Active hydroCHLOROthiazid e 12.5 MG Oral CapsuleIndications :HTN, goal below 150/90 Take 1 Capsule by mouth in the morning. 30 Capsule 5 06/12/2024 Active Atorvastatin Calcium 20 MG Oral Tablet (Lipitor)Indicatio ns:Dyslipidemia, goal LDL below 100 TAKE 1 TABLET BY MOUTH EVERY DAY 90 Tablet 2024 Active Apixaban 2.5 MG Oral Tablet (Eliquis) Take 1 Tablet by mouth in the morning and 1 Tablet before bedtime. 06/29/2024 Active Molnupiravir 200 MG Oral Capsule Take 4 Capsules by mouth in the morning and 4 Capsules before bedtime. Do all this for 5 days. 40 Capsule 06/24/2024 4 Discontinue d(Medicatio n List Clean Up) documented as of this [...] 11/30/2013 Lung nodule 10/30/2012 Overview: RLL. Stable [id number]. 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 Consider lulu 5y. 03/24- EGD-stage C0-M1 per [place] criteria. No dysplasia. REC LULU 03/2018 Other [...] on [facility] CT--TTE orderd for 6mo 2016- Living [...] as of this encounter Progress Notes * Robina Rodgers, [facility] - 07/13/2024 12:47 PM EDT MEDICATION THERAPY MANAGEMENT IBRUTINIB (IMBRUVICA) TREATMENT PROGRESS NOTE Marv Fragoso (Bob) [phone] Patient Phone Numbers Communication: Spoke to: Patient Current Treatment: Medication: Ibrutinib (Imbruvica) Indication: CLL Dose: 420mg (3x 140mg cap) daily Administration: +/- food with a full glass of water Start Date: 05/07/2020 Primary Combat Control: Dr. Lucie Penaloza Supportive Care Meds: Ondansetron Prochlorperazine Prophylactic Meds: Losartan 50mg daily Metoprolol ER 25mg daily HCTZ 12.5mg daily Interval History: Per OV 06/05/24, lab monitoring extended to q2mo Allopurinol d/c'ed at MD OV 06/10/20 Dental procedure 02/26/22 Pt reports holding imbruvica 7 days before and after procedure. Reports holding ibrutinib around early February 2024 (~02/13/24) for pacemaker placement 02/20/24 and resuming treatment 3 weeks ago (around 05/01/24) No concerns or upcoming procedures, tolerating treatment well Changes to medication list since last visit? No Assessment and Plan: Creatinine elevated Per PCP OV 07/12/24, attribute elevated creatinine to HCTZ Pt advised to increase fluid intake and repeat BMP in 2 weeks for PCP review Will consider changing antihypertensive to amlodipine if creatinine remains elevated Uric acid WNL - continue to hold allopurinol BP WNL All other labs stable Continue current therapy and q2mo labs Ordered standing cbcd, cmp, ld, uric acid Assessment of compliance: compliant Assessment of adverse effects attributed to drug therapy: Edema - absent Muscle pain/Cramps - absent Diarrhea/Constipation -absent Nausea/Vomiting - absent Bleeding - absent Rash/Pruritus - absent Hypertension - absent Dose adjustment needed based on lab or adverse drug reaction? No Follow up: 2 months Robina Rodgers, PharmD, BCOP Clinical Pharmacist, [facility] Oral Chemotherapy [facility] 07/13/2024, 1:00 PM Pertinent labs: Latest Reference Range & Units 05/11/24 11:26 06/28/24 11:36 07/10/24 11:23 WBC 4.00 - 10.80 K/uL 13.65 (H) 12.76 (H) 10.41 RBC 4.50 - 5.25 M/uL 3.84 4.22 4.12 HGB 14.0 - 16.8 g/dL 12.5 (L) 14.2 13.5 (L) HCT 40.0 - 48.4 % 38.5 (L) 41.5 40.8 MCV 82.0 - 99.5 fL 100.3 98.3 99.0 MCH 27.0 - 34.0 pg 32.6 33.6 32.8 MCHC 32.0 - 36.0 g/dL 32.5 34.2 33.1 RDW 11.5 - 15.5 % 13.9 14.0 13.5 PLT 140 - 400 K/uL 254 221 221 MPV 6.6 - 11.1 fL 9.9 10.3 9.9 CBC WITH WBC DIFFERENTIAL Rpt ! Rpt ! Absolute Neutrophils 1.80 - 7.70 K/uL 8.74 (H) 5.61 Serum creatinine: 1.4 mg/dL (H) 07/10/24 1123 Estimated creatinine clearance: 36 mL/min (A) Latest Reference Range & Units 05/11/24 11:26 06/28/24 11:36 07/10/24 11:23 BUN 6 - 20 mg/dL 16 18 20 CREATININE 0.6 - 1.2 mg/dL 1.1 1.2 1.4 (H) EGFR >=60 mL/min 66 58 (L) 50 (L) Latest Reference Range & Units 05/11/24 11:26 07/10/24 11:23 LD <=250 U/L 226 183 Uric Acid 3.4 - 7.0 mg/dL 4.6 6.7 Latest Reference Range & Units 05/11/24 11:26 06/28/24 11:36 07/10/24 11:23 Albumin 3.8 - 5.0 g/dL 3.7 (L) 4.0 3.8 AST 10 - 50 U/L 18 20 16 ALT 10 - 50 U/L 14 14 12 Alkaline Phosphatase 35 - 130 U/L 60 52 54 Bilirubin, Total <=1.2 mg/dL 0.5 0.4 0.5 06/12/2024 06/28/2024 07/12/2024 BP AND WT. Systolic 152 110 112 Diastolic 90 78 76 Time Spent on Encounter: 6 - 10 minutes Encounter Group: Hematology Encounter Interventions Item Category: Oral Chemotherapy Ibrutinib Problem/Rationale: Safety: Needs additional monitoring - Medication Requires monitoring Pharmacist Intervention(s): Lab monitoring, Orders labs, and Toxicity monitoring Magnitude of Intervention: Monitoring with direction (Level 1) documented in this encounter Plan of Treatment Upcoming Encounters Date Type Department Care Team (Late st Contact Info) Description 07/31/2024 3:30 PM EDT Immunization/Injecti on Hematology/Oncology Treatment, [place] [address] [facility] [phone] [place], Chair 7 Hem Onc [facility] 200 [facility] [place] [address] 09/11/2024 9:00 AM EST Pharmacy Pharmacy Hematology Oncology [facility] [address] [place] [address] [facility], [facility] Hem/Onc [address] [place] [address] 11/06/2024 10:30 AM EST Office Visit Cardiology, [facility] 132 [facility] [place] [address] Quyen Connolly CRNP [address] [place] [phone] 11/15/2024 10:30 AM EST Office Visit Rheumatology [facility] [address] [facility] [place] [address] Mario [place] PA-C [address] [place] [address] 12/04/2024 2:00 PM EST Laboratory Laboratory [facility] [address] [place], [place] [phone] [facility] 200 [facility] [place], [place] [address] 12/11/2024 1:45 PM EST Office Visit Hematology/Oncology [facility] [address] [place], [place] [phone] Jesus Penaloza MD [address] [place], [place] [address] Health Maintenance Due Date Last Done Comments Adult Wellness Visit 11/26/2020 11/26/2019 Carrington's Esophagus Surveilance 04/03/2021 04/03/2018, 04/03/2018, 04/01/2015, Additional history exists *BISPHONATE OR OTHER ACCEPTABLE MEDICATION NEEDED FOR OSTEOPOROSIS (REFER TO SMARTSET #1146) 12/30/2023 Albumin/Creatinine Ratio 07/29/2024 07/29/2023, 05/10 DXA Scan 11/10/2024 11/10/2022, 11/10/2022 Depression Screening 01/26/2025 01/27/2024 CKD HGB USE SMARTSET 66627 07/10/202507/10, 07/10/2024, 06/28/2024, Additional history exists CKD PHOS USE SMARTSET 73405 07/10/2025 07/10/2024 DTap/Tdap Vaccines (3 - Td or Tdap) 06/30/2032 06/30/2022, 10/30/2012 Pneumococcal Vaccine: 65+ Years Completed 07/25/2015, 10/10/2002 Zoster Vaccines Completed 09/26/2019, 06/10, 10/10/2009 VITAMIN D LEVEL ONCE IN A LIFETIME-USE SMARTSET# 29064 Completed 12/16/2023, 12/17/2022 COVID-19 Vaccine Completed 06/12/2024, [...] remission documented in this encounter Care Teams Shipping Technician Relationship Specialty Start Date End Date Amos Pastrana MD [address] [place] [address] PCP - General Family Medicine 04/28/24 documented as of this encounter
--- OUTSIDE RECORDS SUMMARY | 2024-10-05 12:34 | External Medical Summary | Summary of Care ---
Author Name Unknown Organization [facility] Address [address] [place] [address] Phone [phone] Care Team Providers Care Electrical Engineering Draftsperson Name Role Phone Amos Pastrana MD Primary Care Provider + Reason for Visit * Reason Comments Follow Up Pt reports that he h as been eating well and has put on weight. Encounter Details Date Type Department Care Team (Latest Contact Info) Description 07/31/2024 12:00 PM EDT Office Visit Gastroenterology, [facility] [address] [place] [address] Andreia Munguia CRNP [address] [place] [address] Gastroesophageal reflux disease without esophagitis*; Carrington's esophagus without dysplasia; Dysphagia, unspecified type Allergies Active Allergy Reactions Criticality [...] 11/11/2023 Active predniSONE 5 MG Oral Tablet (Deltasone)Indica [...] 04/01/2024 Active Ibrutinib 140 MG Oral Capsule (Imbruvica)Indica tions:CLL (chronic lymphocytic leukemia) ([facility]) TAKE 3 CAPSULES BY MOUTH IN THE MORNING. TAKE MEDICATION AT SAME TIME EVERY DAY 90 Capsule 5 06/07/2024 06/07/20 25 Active hydroCHLOROthiazi de 12.5 MG [...] before bedtime. 60 Capsule 3 07/31/2024 Active Omeprazole 40 MG Oral Capsule Delayed Release (PriLOSEC)Indicat ions:Carrington's esophagus Take 1 Capsule by mouth in the morning and 1 Capsule before bedtime. 180 Capsule 2 05/07/2024 07/31/20 24 Discontinued documented as of this encounter (statuses as [...] 11/30/2013 Lung nodule 10/30/2012 Overview: RLL. Stable [id number]. 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 Consider lulu 5y. 03/24- EGD-stage C0-M1 per [place] criteria. No dysplasia. REC LULU 03/2018 Other [...] . 10/28 4.6 thror aneurysm on [facility]--TTE orderd for 6mo 2016- Living [...] P R, 30MCG/0.3ML, IM, 12YRS AND ABOVE ([employer] 06/12/2024 Covid-19, Mrna, Lnp-s, Pf, B ivalent, 30 Mcg, IM, 12 yrs and above ([employer]) 02/24/2023,07/01/2022 Pneumococcal Conjugate Vacc, 13 Valent (Prevnar) [...] Sign Reading Time Taken Comments Blood Pressure 126/82 07/31/2024 12:06 PM EDT Pulse 60 07/31/2024 12:06 PM EDT Temperature 36.5 C (97.7 F) 07/31/2024 12:06 PM E DT Respiratory Rate - - Oxygen Saturation 100% 07/31/2024 12:06 PM EDT Inhaled Oxygen Concentration - - Weight 82.2 kg (181 lb 3.2 oz) 07/31/2024 12:06 PM EDT Height - - Body Mass Index 27.55 06/28/2024 11:03 AM EDT documented in this encounter Progress Notes * Andreia Munguia CRNP - 07/31/2024 12:10 PM EDT DATE OF SERVICE: 07/31/2024 REFERRING PHYSICIAN: Amos Pastrana MD CC: Dysphagia HPI: Marv Fragoso is a 89 year old male with history of CLL Barretts esophagus, GERD, AFib status post pacemaker placement, referred by Amos Pastrana MD for management of dysphagia. He was interested in having repeat EGD w esophageal dilation which was scheduled on 08/22/2024. Patient reportsthat he may have slight dysphagia symptoms about once a month. He denies any odynophagia or weight loss, nausea, vomiting, abdominal pain symptoms. Most of the time he is able to swallow rice and chicken well. Few weeks ago he went to a wedding and it trouble swallowing few pieces of salmon. He hada pacemaker placement few months ago and had issues with bleeding. He is on Eliquis. He is taking om eprazole 40 mg twice daily. Past Medical History: Diagnosis Date Anal lesion 11/30/201311/23 refer surg eval B12 deficiency 09/05/201808/27 start IM B12 Carrington's esophagus 11/26/11 Short Segment- repeat EGD in 3 years Bradycardia 10/30/2012 CLL (chronic lymphocytic leukemia) (HCC) 07/18/2017 Dx 2017 Dyslipidemia, goal to be determined Former smoker 10/15/2013 Generalized osteoarthritis History of 2019 novel coronavirus disease (COVID-19) 10/28/202211/01 Hyperlipidemia 01/27/2016 Irritable bowel syndrome Lung nodule 70s Other specified glaucoma Prediabetes 01/16/2018 Prostatitis Pruritus ani 01/11/2014 Recurrent cellulitis of lower leg 03/21/2023 Rotator cuff injury right Sinus bradycardia 12/07/2022 Thoracic aortic aneurysm without rupture (HCC) 10/22/201804/[address] surg Family History Problem Relation Name Age of Onset Alcohol and Other Disorders Associated Mother Marv Lung Disorder Mother Marv large benign tumour Arthritis Mother Marv Gastro-intestinal disorder Mother Marv part of bowel removed Alcohol and Other Disorders Associated Father Marv Lung Disorder Father Marv large benign tumour Alcohol and Other Disorders Associated Brother Agnelito Cancer Brother Angelito tongue. in 1977 Arthritis Mother Mary hands Gastro-intestinal disorder Mother Amry part of bowel removed Past Surgical History: Procedure Laterality Date COLONOSCOPY, DIAGNOSTIC (RECTUM) 07/03/2013 COLONOSCOPY FLEXIBLE PROXIMAL DIAGNOSTIC performed by Mikel Walsh MD at ENDOSCOPY [facility] COLONOSCOPY, DIAGNOSTIC (RECTUM) 01/25/2017 diverticulosis, repeat 10 yrs/[facility] EGD, FLEXIBLE, DIAGNOSTIC 04/01/2015 Barretts, HH, repeat 3 yrs/ESOPHAGOGASTRODUODENOSCOPY (EGD), FLEXIBLE, TRANSORAL, DIAGNOSTIC performed by Mikel Walsh MD at ENDOSCOPY [facility] EGD, FLEXIBLE, DIAGNOSTIC 04/03/2018 Barretts/ESOPHAGOGASTRODUODENOSCOPY (EGD), FLEXIBLE, TRANSORAL, DIAGNOSTIC performed by Mikel Walsh MD at ENDOSCOPY [facility] OTHER 1985 compound fracture REMOVAL OF APPENDIX age 7 REMOVAL OF TONSILS, UNDER AGE 14 age 9 REMOVAL OF TONSILS, UNDER AGE 14 REPAIR/GRAFT OF THIGH MUSCLE 12/20 Dr Taylor Quad tendon repair SMALL BOWEL ENDOSCOPY W/BX 10/18/08 bxs SMALL BOWEL ENDOSCOPY W/BX 11/26/11 Short segment Barretts, repeat EGD in 3 years Social History Tobacco Use Smoking status: Former Current packs/day: 0.00 Average packs/day: 0.5 packs/day for 28.0 years (14.0 ttl pk-yrs) Types: Cigarettes Start date: 09/22/1961 Quit date: 09/22/1989 Years since quittin.8 Passive exposure: Never Smokeless tobacco: Never Vaping Use Vaping status: Never Used Substance Use Topics Alcohol use: Yes Alcohol/week: 19.0 standard drinks of alcohol Types: 3 5 oz of wine, 16 1.5 oz of liquor per week Comment: pt has approx 4oz gin/ every other night, wine Drug use: No Review of patient's allergies indicates: Allergen Reactions Bactrim [Sulfamethoxazole-Trimethoprim] Edema face/lips/tongue Large angioedema 11/2021 (unclear if from bactrim or lisinopril) Azithromycin Unknown Pt states that he felt uncomfortable with this medication, and doesn't want to take it again Lisinopril Cough Reclast [Zoledronic Acid] Severe muscle pain Sildenafil Citrate Abdominal pain and Neuro complications (Please comment) "Viagra" headaches Current Outpatient Medications Medication Sig Dispense Refill COMBIGAN 0.2-0.5 % OP SOLN Instill 1 Drop into the right eye in the morning and 1 Drop before bedtime. Centrum Adults Oral Tablet 1 tab daily 1 Tablet 0 Losartan Potassium 50 MG Oral Tablet (Cozaar) Take 1 Tablet by mouth in the morning. 30 Tablet 5 predniSONE 5 MG Oral Tablet (Deltasone) Take [...] and1 Capsule before bedtime. 60 Capsule 3 No current facility-administered medications for this visit. REVIEW OF SYSTEMS: See HPI above; All other findings negative. EXAM: Filed Vitals: 07/31/24 1206 BP: 126/82 Pulse: 60 Temp: 36.5 C (97.7 F) SpO2: 100% Weight: 82.2 kg (181 lb 3.2 oz) GENERAL: Well developed and well nourished in no acute distress. SKIN: No rashes, ulcers, jaundice or spider angiomata. HEENT: Normocephalic, sclera clear,no oral thrush seen. NECK: Supple, trachea midline, no JVD. LUNGS: Clear to auscultation bilaterally, no respiratory distress or accessory muscles used. HEART: Regular rate & rhythm, no murmurs and no gallops. ABDOMEN: Normal bowel sounds, soft and nontender. EXTREMITIES: No palmar erythema, no ankle edema, no skin discoloration, no clubbing, no cyanosis. NEURO: No lateralizing findings. Sensory/Motor grossly normal. ASSESSMENT AND PLAN: Marv Fragoso is a 89 year old w hx of GERD, Carrington's esophagus with milddysphagia symptoms. He is taking omeprazole 40 mg twice daily. B12, magnesium levels this year normal. He has CKD, last creatinine was 1.4. Discuss risks versus benefits of repeat EGD with possible dilation, with patient in his daughter in clinic today. Given his medical comorbidities, also being on anticoagulant, I suspect that his risk of anesthesia and procedure complications would be on a higher side. After further thoughts on evaluation, patient and his daughter decided to cancel the EGD procedure. I encouraged him to follow soft, slippery diet. I also decreased his omeprazole dose to 20mg twice daily given his CKD. Signs and symptoms of food bolus which need emergent evaluation were reviewed. I spent a total of 45 minutes on the date of service in review of patient's record, and previously obtained information in person and appropriate medical visit, discussion and education of plan, withpatient and/or caregiver, placing orders for tests/referral/procedures as medically necessary and documentation of pertinent clinical information in patient's medical records for their visit today. RETURN TO CLINIC[facility]: 07/31/2024 documented in this encounter Plan of Treatment Upcoming Encounters Date Type Department Care Team (Late st Contact Info) Description 07/31/2024 3:30 PM EDT Immunization/Injecti on Hematology/Oncology Treatment, [address], [place] [phone] [place], Chair [address] Hem Onc [address] [place] [address] 08/28/2024 11:00 AM EST Immunization/Injecti on Hematology/[address] [phone] F[place], Chair 7 Hem Onc [address] [place] [address] 09/11/2024 9:00 AM EST Pharmacy Pharmacy Hematology Oncology [facility] [address] [place] [address] [facility], [facility] Clinic Hem/Onc [address] [place] [address] 09/25/2024 11:00 AM EST Immunization/Injecti on Hematology/[address] [phone] F[place], Chair 3 Hem Onc [address] [place] [address] 11/06/2024 10:30 AM EST Office Visit Cardiology, [facility] [address] [facility] [place] [address] Quyen Connolly CRNP [address] [facility] [place] [phone] 11/15/2024 10:30 AM EST Office Visit Rheumatology [place] [phone] [employer] [place] [address] Mario Dover PA-C [facility] [employer] [place] [address] 12/04/2024 2:00 PM EST Laboratory Laboratory [facility] [place] [address] [place] [phone] [facility] 200 [facility] [place] [address] 12/11/2024 1:45 PM EST Office Visit Hematology/Oncology [facility] Fanta [place] [address] [place] [phone] Jesus Penaloza MD [address] [place] [address] Health Maintenance Due Date Last Done Comments Adult Wellness Visit 11/26/2020 11/26/2019 Carrington's Esophagus Surveilance 04/03/2021 04/03/2018, 04/03/2018, 04/01/2015, Additional history exists *BISPHONATE OR OTHER ACCEPTABLE MEDICATION NEEDED FOR OSTEOPOROSIS (REFER TO SMARTSET #1146) 12/30/2023 Albumin/Creatinine Ratio 07/29/2024 07/29/2023, 05/10 DXA Scan 11/10/2024 11/10/2022, 11/10/2022 Depression Screening 01/26/2025 01/27/2024 CKD HGB USE SMARTSET 27211 07/10/202507/10, 07/10/2024, 06/28/2024, Additional history exists CKD PHOS USE SMARTSET 45104 07/10/2025 07/10/2024 DTap/Tdap Vaccines (3 - Td or Tdap) 06/30/2032 06/30/2022, 10/30/2012 Pneumococcal Vaccine: 65+ Years Completed 07/25/2015, 10/10/2002 Zoster Vaccines Completed 09/26/2019, 06/10, 10/10/2009 VITAMIN D LEVEL ONCE IN A LIFETIME-USE SMARTSET# 66304 Completed 12/16/2023, 12/17/2022 COVID-19 Vaccine Completed 06/12/2024, [...] as of this encounter Visit Diagnoses Diagnosis Gastroesophageal reflux disease without esophagitis- Primary Esophageal reflux Carrington's esophagus without dysplasia Carrington's esophagus Dysphagia, unspecified type documented in this encounter Care Teams Electrical Engineering Draftsperson Relationship Specialty Start Date End Date Amos Pastrana MD [address] [place] [address] PCP - General Family Medicine 04/28/24 documented as of this encounter
--- OUTSIDE RECORDS SUMMARY | 2024-10-05 12:34 | External Medical Summary | Summary of Care ---
Author Name Unknown Organization [facility] Address [address] [place] [address] Phone [phone] Care Team Providers Care Sample Stitcher Name Role Phone Amos Pastrana MD Primary Care Provider + Reason for Visit * Reason Onset Date Comments Appointment 07/24/2024 Egd Encounter Details Date Type Department Care Team (Late st Contact Info) Description 07/24/2024 Telephone Gastroenterology, [place] [address] [place] [address] Specified, No Resource [address] [place] [address] Appointment (Egd ) Allergies Active [...] as of this encounter (statuses as of 07/26/2024) Medications Medication Sig Dispensed Refills Start Date [...] Oral Tablet (Deltasone)Indicati ons:PMR (polymyalgia rheumatica) ([facility]) Take 1 Tablet by mouth in the morning. 90 Tablet 3 11/29/2023 Active Metoprolol Succinate ER 25 MG Oral Tablet Extended Release 24 Hour (toPROL XL)Indications:Paro xysmal atrial fibrillation ([facility]),Cardiac pacemaker in situ,SSS (sick sinus syndrome) ([facility]),RBBB (right bundle branch block),HTN, goal below 140/90 [...] Capsule (Imbruvica)Indicati ons:CLL (chronic lymphocytic leukemia) ([facility]) TAKE 3 CAPSULES BY MOUTH IN THE [...] as of this encounter (statuses as of 07/26/2024) Active Problems Problem Noted Date Diagnosed Date [...] 11/30/2013 Lung nodule 10/30/2012 Overview: RLL. Stable [id number]. 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 Consider lulu 5y. 03/24- EGD-stage C0-M1 per [place] criteria. No dysplasia. REC LULU 03/2018 Other specified glaucoma Generalized osteoarthritis Irritable bowel syndrome documented as of this encounter (statuses as of 07/26/2024) Resolved Problems Problem Noted Date Diagnosed Date [...] Thoracic . 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 11/23 PFTs WNL 06/22 colonoscopy WNL. +int hemorrhoids, divertic. 12/20 fell on ice-UOC rec tendon repair knee 10/22 pt declined prostate screen Bradycardia 10/30/2012 01/07/2020 Dyslipidemia 10/05/2021 Rotator cuff injury 04/28/20 Overview: right documented as of this encounter (statuses as of 07/26/2024) Immunizations Name Administration Dates Next Due COVID-19 mRNA, LNP-s, No Pre serve, 2-Dose Series (Moderna) 11/19/2021,05/25/2021,12/09/2020,11/04 COVID-19, MRNA-LNP, 23-24, P F, 30 MCG/0.3 mL, 12 YRS AND ABOVE, IM ([employer]) 07/02/2023 COVID-19, MRNA-LNP, 23-24, P F, 50 [...] encounter Miscellaneous Notes * Telephone Encounter - Laure Gimenez OSA - 07/24/2024 7:12 AM EDT Order UPPER ENDOSCOPY GI REFERRAL OP [[id number]] (Order [id number]) Sigifredo Solorio 07/23/2024 11:35 AM Patient Message Description: 89 year old male Provider: Amos Pastrana MD Department: [facility] Order Information Date and Time Department Ordering/Authorizing 07/23/2024 9:46 PM [facility] Amos Hancock MD Order Providers Authorizing Provider Encounter Provider ([id number]) Amos Pastrana MD ([id number]) Amos Pastrana MD Priority and Order Details [...] (routine) Where should this appointment be scheduled? 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 [K22.70] - Primary Dysphagia, unspecified type [R13.10] Encounter View Encounter Reprint Requisition UPPER ENDOSCOPY GI REFERRAL OP (Order #[id number]) on 07/23/24 Detailed Information Priority and Order Details Reference Links Neighborly Acct Guarantor Acct Type [id number] SIGIFREDO SOLORIO Personal/Family [1] [id number] SIGIFREDO SOLORIO Personal/Family [1] Service Location Name Address Phone [address] [phone] Currently Active Insurance Payor Plan Subscriber Member ID MEDICARE MEDICARE A AND B SIGIFREDO SOLORIO [id number] [facility] KENNY SOLORIO J [id number] documented in this encounter Plan of Treatment Upcoming Encounters Date Type Department Care Team (Late st Contact Info) Description 07/31/2024 3:30 PM EDT Immunization/Injecti on Hematology/Oncology Treatment, [place] [address] [place] [phone] Fanta, Chair 7 Hem Onc [facility] [address] [place] [phone] 09/11/2024 9:00 AM EST Pharmacy Pharmacy Hematology Oncology [facility] [address] [place] [address] [facility] Hem/Onc [address] [place] [address] 11/06/2024 10:30 AM EST Office Visit Cardiology, [facility] [address] [facility] [place] [address] Quyen Connolly CRNP [address] [place] [address] 11/15/2024 10:30 AM EST Office Visit Rheumatology [place] [address] [facility] [place] [address] Mario Dover PA-C [address] [place] [address] [place] [address] 12/04/2024 2:00 PM EST Laboratory Laboratory [facility] [place] [address] [place] [phone] [facility] [place] [address] [place] [address] 12/11/2024 1:45 PM EST Office Visit Hematology/Oncology [facility] [place] [address] [place] [phone] Jesus Penaloza MD [address] [place] [address] Health Maintenance Due Date Last Done Comments Adult Wellness Visit 11/26/2020 11/26/2019 Carrington's Esophagus Surveilance 04/03/2021 04/03/2018, 04/03/2018, 04/01/2015, Additional history exists *BISPHONATE OR OTHER ACCEPTABLE MEDICATION NEEDED FOR OSTEOPOROSIS (REFER TO SMARTSET #1146) 12/30/2023 Albumin/Creatinine Ratio 07/29/2024 07/29/2023, 05/10 DXA Scan 11/10/2024 11/10/2022, 11/10/2022 Depression Screening 01/26/2025 01/27/2024 CKD HGB USE SMARTSET 76135 07/10/202507/10, 07/10/2024, 06/28/2024, Additional history exists CKD PHOS USE SMARTSET 81151 07/10/2025 07/10/2024 DTap/Tdap Vaccines (3 - Td or Tdap) 06/30/2032 06/30/2022, 10/30/2012 Pneumococcal Vaccine: 65+ Years Completed 07/25/2015, 10/10/2002 Zoster Vaccines Completed 09/26/2019, 06/10, 10/10/2009 VITAMIN D LEVEL ONCE IN A LIFETIME-USE SMARTSET# 99683 Completed 12/16/2023, 12/17/2022 COVID-19 Vaccine Completed 06/12/2024, [...] filedocumented as of this encounter Care Teams Sample Stitcher Relationship Specialty Start Date End Date Amos Pastrana MD [address] [place] [address] PCP - General Family Medicine 04/28/24 documented as of this encounter
--- OUTSIDE RECORDS SUMMARY | 2024-10-05 12:35 | External Medical Summary | Summary of Care ---
Author Name Unknown Organization [facility] Address [address] [place] [address] Phone [phone] Care Team Providers Care Oven Tender Bagels Name Role Phone Amos Pastrana MD Primary Care Provider + Reason for Visit * Reason Comments Outpatient Testing Encounter Details Date Type Department Care Team (Late st Contact Info) Description 07/10/2024 11:10 AM EDT Laboratory Laboratory, [facility] [address] [address] [facility] [address] [address] CLL (chronic lymphocytic leukemia) (HCC); HTN, goal below 150/90; Routine medical exam; Chronic kidney disease, stage 3a ([facility]); Dyslipidemia, goal LDL below 100; Encounter for long-term (current) use of medications Allergies Active Allergy Reactions Criticality Noted Date [...] as of this encounter (statuses as of 07/10/2024) Medications Medication Sig Dispensed Refills Start Date [...] MG Oral Tablet (Deltasone)Indicati ons:PMR (polymyalgia rheumatica) ([facility]) Take 1 Tablet by mouth in the morning. 90 Tablet 3 11/29/2023 Active Metoprolol Succinate ER 25 MG Oral Tablet Extended Release 24 Hour (toPROL XL)Indications:Paro xysmal atrial fibrillation ([facility]),Cardiac pacemaker in situ,SSS (sick sinus syndrome) ([facility]),RBBB (right bundle branch block),HTN, goal [...] Oral Capsule (Imbruvica)Indicati ons:CLL (chronic lymphocytic leukemia) ([facility]) TAKE 3 CAPSULES BY MOUTH [...] as of this encounter (statuses as of 07/10/2024) Active Problems Problem Noted Date Diagnosed Date [...] 11/30/2013 Lung nodule 10/30/2012 Overview: RLL. Stable [id number]. 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 Consider lulu 5y. 03/24- EGD-stage C0-M1 per Simpson criteria. No dysplasia. REC LULU 03/2018 Other specified glaucoma Generalized osteoarthritis Irritable bowel syndrome documented as of this encounter (statuses as of 07/10/2024) Resolved Problems Problem Noted Date Diagnosed Date [...] Thoracic . 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 11/23 PFTs WNL 06/22 colonoscopy WNL. +int hemorrhoids, divertic. 12/20 fell on ice-UOC rec tendon repair knee 10/22 pt declined prostate screen Bradycardia 10/30/2012 01/07/2020 Dyslipidemia 10/05/2021 Rotator cuff injury 04/28/20 Overview: right documented as of this encounter (statuses as of 07/10/2024) Immunizations Name Administration Dates Next Due COVID-19 [...] Care Team (Late st Contact Info) Description 07/12/2024 2:40 PM EDT Office Visit Family Practice [facility] [address] [place] [address] Mansi Busch CRNP [address] [place] [address] 07/16/2024 9:00 AM EDT Pharmacy Pharmacy Hematology Oncology [facility] [address] [place] [address] [facility] Hem/Onc [address] [place] [address] 07/31/2024 3:30 PM EDT Immunization/Injecti on Hematology/Oncology Treatment, [place] [address] [place] [address] [place], Chair 7 Hem Onc [address] [place] [address] 11/06/2024 10:30 AM EST Office Visit Cardiology, [facility] [address] [place] [address] Quyen Connolly CRNP [address] [facility] [place] [address] 11/15/2024 10:30 AM EST Office Visit Rheumatology [facility] [address] [place] [address] Mario Dover PA-C [address] [place] [address] 12/04/2024 2:00 PM EST Laboratory Laboratory [facility] [address] [facility] [place], [place] [phone] Park, Lab [facility] 200 [facility] [place] [address] 12/11/2024 1:45 PM EST Office Visit Hematology/Oncology [facility] [place] [address] [place] [phone] Jesus Penaloza MD [address] [facility] [place] [address] Pending Results Name Type Priority Associated Diagnoses Date /Time CBC WITH WBC DIFFERENTIAL Lab STAT CLL (chronic lymphocytic leukemia) ([facility]) 07/10/2024 11:23 AM EDT COMPREHENSIVE METABOLIC PANEL Lab STAT CLL (chronic lymphocytic leukemia) ([facility]) 07/10/2024 11:23 AM EDT URIC ACID Lab STAT CLL (chronic lymphocytic leukemia) ([facility]) 07/10/2024 11:23 AM EDT LD Lab STAT CLL (chronic lymphocytic leukemia) ([facility]) 07/10/2024 11:23 AM EDT PHOSPHORUS Lab Routine Routine medical exam Chronic kidney disease, stage 3a ([facility]) 07/10/2024 11:23 AM EDT LIPID PANEL WITH DIRECT LDL IF TG IS HIGH Lab Routine Dyslipidemia, goal LDL below 100 Routine medical exam Encounter for long-term (current) use of medications 07/10/2024 11:23 AM EDT CBC Lab STAT CLL (chronic lymphocytic leukemia) ([facility]) 07/10/2024 11:23 AM EDT DIFFERENTIAL, AUTOMATED Lab STAT CLL (chronic lymphocytic leukemia) ([facility]) 07/10/2024 11:23 AM EDT Health Maintenance Due Date Last Done Comments CKD PHOS USE SMARTSET 73280 1953 Adult Wellness Visit 11/26/2020 11/26/2019 Carrington's Esophagus Surveilance 04/03/2021 04/03/2018, 04/03/2018, 04/01/2015, Additional history exists *BISPHONATE OR OTHER ACCEPTABLE MEDICATION NEEDED FOR OSTEOPOROSIS (REFER TO SMARTSET #1146) 12/30/2023 Albumin/Creatinine Ratio 07/29/2024 07/29/2023, 05/10 DXA Scan 11/10/2024 11/10/2022, 11/10/2022 Depression Screening 01/26/2025 01/27/2024 CKD HGB USE SMARTSET 41723 06/28/202506/28, 05/11/2024, 05/11/2024, Additional history exists DTap/Tdap Vaccines (3 - Td or Tdap) 06/30/2032 06/30/2022, 10/30/2012 Pneumococcal Vaccine: 65+ Years Completed 07/25/2015, 10/10/2002 Zoster Vaccines Completed 09/26/2019, 06/10, 10/10/2009 VITAMIN D LEVEL ONCE IN A LIFETIME-USE SMARTSET# 04573 Completed 12/16/2023, 12/17/2022 COVID-19 Vaccine Completed 06/12/2024, [...] Visit Diagnoses Diagnosis CLL (chronic lymphocytic leukemia) (HCC) Chronic lymphoid leukemia, without mention of having achieved remission HTN, goal below 150/90 Routine medical exam Routine general medical examination at a health care facility Chronic kidney disease, stage 3a (HCC) Dyslipidemia, goal LDL below 100 Other and unspecified hyperlipidemia Encounter for long-term (current) use of medications Encounter for long-term (current) use of other medications documented in this encounter Care Teams O[employer] Tender Bagels Relationship Specialty Start Date End Date Amos Pastrana MD [address] [place] [address] PCP - General Family Medicine 04/28/24 documented as of this encounter
--- OUTSIDE RECORDS SUMMARY | 2024-10-05 12:35 | External Medical Summary | Summary of Care ---
Author Name Unknown Organization [facility] Address [address] [place] [address] Phone [phone] Care Team Providers Care Electronics Scale Tester Name Role Phone Amos Pastrana MD Primary Care Provider + Reason for Visit * Reason Onset Date Comments Pacemaker Check 05/21/2024 Encounter Details Date Type Department Care Team (Late st Contact Info) Description 05/21/2024 Telephone Cardiology, [place] [address] [facility] [place] [address] Lianna Keenan, [address] [facility] [place] [address] Pacemaker Check Allergies Active Allergy Reactions Criticality Noted Date [...] as of this encounter (statuses as of 06/29/2024) Medications Medication Sig Dispensed Refills Start Date [...] MG Oral Tablet (Deltasone)Indica tions:PMR (polymyalgia rheumatica) ([facility]) Take 1 Tablet by mouth in the morning. 90 Tablet 3 4 Active Metoprolol Succinate ER 25 MG Oral Tablet Extended Release 24 Hour (toPROL XL)Indications:Pa roxysmal atrial fibrillation ([facility]),Cardiac pacemaker in situ,SSS (sick sinus syndrome) ([facility]),RBBB (right bundle branch block),HTN, goal below 140/90 Take 1 Tablet by mouth in the morning and 1 Tablet before bedtime. 180 Tablet 3 4 Active Omeprazole 40 MG Oral Capsule Delayed Release (PriLOSEC)Indicat ions:Carrington's esophagus Take 1 Capsule by mouth in the morning and 1 Capsule before bedtime. 180 Capsule 2 4 Active Atorvastatin Calcium 20 MG Oral Tablet (Lipitor)Indicati ons:Dyslipidemia, goal LDL below 100 take 1 tablet by mouth once daily 90 Tablet 3 3 06/25/20 24 Discontinued Ibrutinib 140 MG Oral Capsule (Imbruvica)Indica tions:CLL (chronic lymphocytic leukemia) ([facility]) TAKE 3 CAPSULES BY MOUTH IN THE MORNING. TAKE MEDICATION AT SAME TIME EVERY DAY 90 Capsule 5 4 06/07/20 24 Discontinued(Ref ill) documented as of this encounter (statuses as of 06/29/2024) Active Problems Problem Noted Date Diagnosed Date [...] 11/30/2013 Lung nodule 10/30/2012 Overview: RLL. Stable [id number]. 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 Consider lulu 5y. 03/24- EGD-stage C0-M1 per [place] criteria. No dysplasia. REC LULU 03/2018 Other specified glaucoma Generalized osteoarthritis Irritable bowel syndrome documented as of this encounter (statuses as of 06/29/2024) Resolved Problems Problem Noted Date Diagnosed Date [...] . 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 11/23 PFTs WNL 06/22 colonoscopy WNL. +int hemorrhoids, divertic. 12/20 fell on ice-UOC rec tendon repair knee 10/22 pt declined prostate screen Bradycardia 10/30/2012 01/07/2020 Dyslipidemia 10/05/2021 Rotator cuff injury 04/28/20 Overview: right documented as of this encounter (statuses as of 06/29/2024) Immunizations Name Administration Dates Next Due COVID-19 [...] Adjuvanted, 65+ Yrs, IM (FLUAD) 06/18/2020 Seasonal Influenza, PF, 6 M & above, IM , (FluLaval or Fluzone) 07/14/2018,07/18/2017 Seasonal Influenza, Quadriva lent Hd (Fluzone Hd) 06/15/2023,06/16/2022,06/16/2021 Seasonal Influenza, Quadriva lent, No Preserve, IM 06/30/2016,07/25/2015 Seasonal Influenza, Trivalen t, (IIV3), with Preserv, (Fluzone) 07/19/2014,07/10/2013,09/06/2012,08/24 Seasonal Influenza, Trivalen t, Adjuvanted, 65+ YRS, [...] 10/18/2023 Does the household have a re lar source of income? (Household - for ages [...] encounter Miscellaneous Notes * Telephone Encounter - Nikole Cabezas RN - 05/21/2024 8:05 AM EDT Normal Remote: With Events 1 Normal Device Function Events or Alerts: 5 Battery: Battery is at 95.5%, 8.08 yrs Sensing, impedance and thresholds reviewed Programmed parameters reviewed Presenting rhythm AF with int SPEECH COACH Heart Rate Histograms reviewed Atrial Fibrillation w/Controlled V Response 1 Stored EGMs are consistent with or suggestive of Atrial Fibrillation with Controlled Ventricular Response AT/AF [place]: 1% Total episodes: 5 Longest episode: 10 hours Not on AC. Will consult Lianna Keenan DO . She was consulted and will review his chart. PLAN Routine remote follow up and as needed. Additional Notes: 06/13/2024 documented in this encounter Plan of Treatment Upcoming Encounters Date Type Department Care Team (Late st Contact Info) Description 07/03/2024 3:45 PM EDT Immunization/Injecti on Hematology/Oncology Treatment, [place] [address] [place] [phone] [place], Chair 7 Hem Onc [facility] [address] [place] [address] 07/12/2024 2:40 PM EDT Office Visit Family Practice [facility] [address] [place] [address] Mansi Busch CRNP 132 [facility] [place] [address] 07/16/2024 9:00 AM EDT Pharmacy Pharmacy Hematology Oncology [facility] [address] [place] [address] [facility], [facility] Hem/Onc [address] [place] [address] 11/06/2024 10:30 AM EST Office Visit Cardiology, [facility] [address] [place] [address] Quyen Connolly CRNP 400 [facility] [place] [id number] 11/15/2024 10:30 AM EST Office Visit Rheumatology [place] [phone] [place] [address] Mario Dover PA-C [facility] [employer] [place] [address] 12/04/2024 2:00 PM EST Laboratory Laboratory [facility] [place] [address] [place] [address] [facility] [address] [facility] [place] [address] 12/11/2024 1:45 PM EST Office Visit Hematology/Oncology [facility] [place] [address] [place] [phone] Jesus Penaloza MD [address] [place] [address] Health Maintenance Due Date Last Done Comments CKD PHOS USE SMARTSET 36900 1953 Adult Wellness Visit 11/26/2020 11/26/2019 Carrington's Esophagus Surveilance 04/03/2021 04/03/2018, 04/03/2018, 04/01/2015, Additional history exists *BISPHONATE OR OTHER ACCEPTABLE MEDICATION NEEDED FOR OSTEOPOROSIS (REFER TO SMARTSET #1146) 12/30/2023 *NEPHROLOGY 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 05/20/2024 Albumin/Creatinine Ratio 07/29/2024 07/29/2023, 05/10 DXA Scan 11/10/2024 11/10/2022, 11/10/2022 Depression Screening 01/26/2025 01/27/2024 CKD HGB USE SMARTSET 95340 06/28/202506/28, 05/11/2024, 05/11/2024, Additional history exists DTap/Tdap Vaccines (3 - Td or Tdap) 06/30/2032 06/30/2022, 10/30/2012 Pneumococcal Vaccine: 65+ Years Completed 07/25/2015, 10/10/2002 Zoster Vaccines Completed 09/26/2019, 06/10, 10/10/2009 VITAMIN D LEVEL ONCE IN A LIFETIME-USE SMARTSET# 19751 Completed 12/16/2023, 12/17/2022 COVID-19 Vaccine Completed 06/12/2024, [...] filedocumented as of this encounter Care Teams Electronics Scale Tester Relationship Specialty Start Date End Date Amos Pastrana MD [address] [place] [address] PCP - General Family Medicine 04/28/24 documented as of this encounter
--- OUTSIDE RECORDS SUMMARY | 2024-10-05 12:35 | External Medical Summary ---
Author Name Unknown Address Unknown Organization [id number]:[facility] [place] [address] - [address] [place] [address] Laboratory Report Ordering Provider Test Date Status EFRAIN VILLALBA 07/10/2024 11:23:58 Final Observation Date Value Abnormality Reference (Units ) Status WBC, Total 07/10/2024 11:23:58 10.41 4.00-10.8 0 (K/uL) Final RBC 07/10/2024 11:23:58 4.12 4.50-5.25 (M/uL) Final Hemoglobin 07/10/2024 11:23:58 13.5 Below low normal 14 .0-16.8 (g/dL) Final HCT 07/10/2024 11:23:58 40.8 40.0-48.4 (%) Final MCV 07/10/2024 11:23:58 99.0 82.0-99.5 (fL) Final MCH 07/10/2024 11:23:58 32.8 27.0-34.0 (pg) Final MCHC 07/10/2024 11:23:58 33.1 32.0-36.0 (g/dL) Final RDW 07/10/2024 11:23:58 13.5 11.5-15.5 (%) Final Platelets 07/10/2024 11:23:58 221 140-400 (K /uL) Final MPV 07/10/2024 11:23:58 9.9 6.6-11.1 ( fL) Final Performing Location [facility]ORY [facility] - [address] [place] [address]
--- OUTSIDE RECORDS SUMMARY | 2024-10-05 12:35 | External Medical Summary ---
Author Name Unknown Address Unknown Organization [id number]:[facility] - [address] [place] [address] Laboratory Report Ordering Provider Test Date Status EFRAIN VILLALBA 07/10/2024 11:23:58 Final Observation Date Value Abnormality Reference (Units ) Status LDH 07/10/2024 11:23:58 183 <=250 (U/L ) Final Performing Location [facility] - [address] [place] [address]
--- OUTSIDE RECORDS SUMMARY | 2024-10-05 12:35 | External Medical Summary ---
Author Name Unknown Address Unknown Organization [id number]:[facility] [place] [address] [place] [address] Laboratory Report Ordering Provider Test Date Status EFRAIN VILLALBA 07/10/2024 11:23:58 Final Observation Date Value Abnormality Reference (Units ) Status Uric Acid 07/10/2024 11:23:58 6.7 3.4-7.0 (m g/dL) Final Performing Location [facility] [place] [address] [place] [address]
--- OUTSIDE RECORDS SUMMARY | 2024-10-05 12:35 | External Medical Summary | Summary of Care ---
Author Name Unknown Organization [facility] Address [address] [place] [address] Phone [phone] Care Team Providers Care Lead Portfolio Manager Name Role Phone Amos Pastrana MD Primary Care Provider + Reason for Visit * Reason Comments Acute Blood pressure jude rns- has COVID Encounter Details Date Type Department Care Team (Latest Contact Info) Description 06/28/2024 11:00 AM EDT Office Visit General Internal Medicine [facility] [address] [place] [address] Iris Julian MD [address] [place] [address] COVID-19 virus infection*; Other specified hypotension; Sinus bradycardia; Recurrent cellulitis of lower leg; Primary osteoarthritis of right knee; HTN, goal below 140/90; Thoracic aortic aneurysm without rupture, unspecified part ([facility]); Irritable bowel syndrome with diarrhea; CLL (chronic lymphocytic leukemia) ([facility]); Chronic kidney disease, stage 3a ([facility]); Carrington's esophagus without dysplasia; PMR (polymyalgia rheumatica) ([facility]) Allergies Active Allergy Reactions Criticality Noted Date [...] Tablet (Deltasone)Indicati ons:PMR (polymyalgia rheumatica) ([facility]) Take 1 Tablet by mouth in the morning. 90 Tablet 3 11/29/2023 Active Metoprolol Succinate ER 25 MG Oral Tablet Extended Release 24 Hour (toPROL XL)Indications:Paro xysmal atrial fibrillation ([facility]),Cardiac pacemaker in situ,SSS (sick sinus syndrome) ([facility]),RBBB (right bundle branch block),HTN, goal below [...] (Imbruvica)Indicati ons:CLL (chronic lymphocytic leukemia) ([facility]) TAKE 3 CAPSULES BY MOUTH IN [...] MOUTH EVERY DAY 90 Tablet 2024 Active Molnupiravir 200 MG Oral Capsule Take 4 Capsules by mouth in the morning and 4 Capsules before bedtime. Do all this for 5 days. 40 Capsule 06/24/2024 06/29/2024 Active documented as of this encounter [...] 11/30/2013 Lung nodule 10/30/2012 Overview: RLL. Stable [id number]. 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 Consider lulu 5y. 03/24- EGD-stage C0-M1 per [place] criteria. No dysplasia. 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 on [facility] CT--TTE orderd for 6mo 2017-f [...] Sign Reading Time Taken Comments Blood Pressure 110/78 06/28/2024 11:03 AM EDT Pulse 79 06/28/2024 11:03 AM EDT Temperature 36.4 C (97.6 F) 06/28/2024 11:03 AM E DT Respiratory Rate 12 06/28/2024 11:03 AM EDT Oxygen Saturation 97% 06/28/2024 11:03 AM EDT Inhaled Oxygen Concentration - - Weight 81.5 kg (179 lb 9.6 oz) 06/28/2024 11:03 AM EDT Height 172.7 cm (5' 8") 06/28/2024 11:03 AM EDT Body Mass Index 27.31 06/28/2024 11:03 AM EDT documented in this encounter Progress Notes * Iris Julian MD - 06/28/2024 11:13 AM EDT Images from the original note were not included. History of Present Illness Marv Fragoso is a 89 year old male that presents for Acute (Blood pressure concerns- has COVID) 89 year old YOmale with PMH as listed below presents here for evaluation of hypotension. Duration of illness: 4 days Symptoms present : -covid symptoms started on Tuesday , started on Tueupril and those symptoms better. Also had new booster 10 days prior -Last night after supper he felt extreme fatigue and weakness. It happened one more time and then he went to bed. Not bad Today but a bit shaky . Eating and drinking ok . On 3 BP meds , HCTZ was started 3 weeks ago for high BP and doing okay until now . Feels lightheaded and not dizzy Symptoms not present: f/c, SOB, CP, any blood loss , diarrhea , low appetite Have same similar thing in past : h/o SSS s/p pacer , CLL on chemo and on prednisone for PMR Since symptoms started things getting : worse Used anything for this illness: drinking more fluid Other concerns or issues present : no Physical Exam Vitals: 06/28/24 1103 Temp: 36.4 C (97.6 F) Pulse: 79 Resp: 12 SpO2: 97% BP: 110/78 BMI: 27.31 BP Readings from Last 3 Encounters: 06/28/24 110/78 06/12/24 152/90 06/05/24 184/99 Physical Exam Vitals and nursing note reviewed. Constitutional: General: He is not in acute distress. Appearance: He is normal weight. HENT: Head: Normocephalic. Right Ear: Tympanic membrane normal. There is no impacted cerumen. Left Ear: Tympanic membrane normal. There is no impacted cerumen. Mouth/Throat: Pharynx: No oropharyngeal exudate or posterior oropharyngeal erythema. Cardiovascular: Rate and Rhythm: Normal rate and regular rhythm. Pulmonary: Effort: Pulmonary effort is normal. No respiratory distress. Breath sounds: No wheezing. Abdominal: General: Bowel sounds are normal. There is no distension. Palpations: Abdomen is soft. There is no mass. Musculoskeletal: General: No swelling, tenderness or signs of injury. Cervical back: Neck supple. No rigidity. Right lower leg: No edema. Left lower leg: No edema. Skin: General: Skin is warm. Neurological: Mental Status: He is alert. I have reviewed the following results: CMP and CBC Assessment and Plan COVID-19 virus infection Complete monopril - getting much better Other specified hypotension From covid infection and may be dehydration Encourage fluid Hold HCTZ for 3 days or more if BP < 110 SBP which is top number Decrease losartan to 1/2 tab for 3 days . Continue to take half tab longer if BP still low until it's > 140/90 If symptoms resolves and BP increases > 140/90- increase losartan to 1 tab then add back HCTZ Paper given in writing - CBC; Future - COMPREHENSIVE METABOLIC PANEL; Future Sinus bradycardia Recurrent cellulitis of lower leg Primary osteoarthritis of right knee HTN, goal below 140/90 Thoracic aortic aneurysm without rupture, unspecified part (HCC) Irritable bowel syndrome with diarrhea CLL (chronic lymphocytic leukemia) (HCC) Chronic kidney disease, stage 3a (HCC) Carrington's esophagus without dysplasia PMR (polymyalgia rheumatica) (HCC) Wrap-Up Time: I spent a total of 30-39 minutes (exact time 35 mins) on the date of service in preparation, delivery, and documentation of the care provided to aMrv Fragoso excluding any time spent in the performance of separately billed services. documented in this encounter Nursing Notes * Brina Dias, MED ASSIST - 06/28/2024 10:57 AM EDT Tested positive for COVID on Tuesday. Has been taking paxlovid. Today was his last dosage. Last night after supper he felt extreme fatigue and weakness. It happened one more time and then hewent to bed. He states that he feels well today. documented in this encounter Plan of Treatment Upcoming Encounters Date Type Department Care Team (Late st Contact Info) Description 07/03/2024 3:45 PM EDT Immunization/Injecti on Hematology/Oncology Treatment, [address] [phone] [place], Chair [address] [address] 07/12/2024 2:40 PM EDT Office Visit Family [facility] [address] [facility] [address] Mansi Busch CRNP [address] [place] [address] 07/16/2024 9:00 AM EDT Pharmacy Pharmacy Hematology Oncology [facility] [address] [place] [address] [facility], [facility] Hem/Onc [address] [place] [address] 11/06/2024 10:30 AM EST Office Visit Cardiology, [facility] [address] [place] [address] Quyen Connolly CRNP [address] [place] [address] 11/15/2024 10:30 AM EST Office Visit Rheumatology [facility] [address] [facility] [place] [address] Mario Dover PA-C [address] [employer] [place] [address] 12/04/2024 2:00 PM EST Laboratory Laboratory [facility] [address] [place] [phone] [facility] [address] [facility] [place] [address] 12/11/2024 1:45 PM EST Office Visit Hematology/Oncology [facility] [address] [place] [phone] Jesus Penaloza MD [address] [place] [address] Health Maintenance Due Date Last Done Comments CKD PHOS USE SMARTSET 25824 1953 Adult Wellness Visit 11/26/2020 11/26/2019 Carrington's Esophagus Surveilance 04/03/2021 04/03/2018, 04/03/2018, 04/01/2015, Additional history exists *BISPHONATE OR OTHER ACCEPTABLE MEDICATION NEEDED FOR OSTEOPOROSIS (REFER TO SMARTSET #1146) 12/30/2023 *NEPHROLOGY 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 05/20/2024 Albumin/Creatinine Ratio 07/29/2024 07/29/2023, 05/10 DXA Scan 11/10/2024 11/10/2022, 11/10/2022 Depression Screening 01/26/2025 01/27/2024 CKD HGB USE SMARTSET 44890 06/28/202506/28, 05/11/2024, 05/11/2024, Additional history exists DTap/Tdap Vaccines (3 - Td or Tdap) 06/30/2032 06/30/2022, 10/30/2012 Pneumococcal Vaccine: 65+ Years Completed 07/25/2015, 10/10/2002 Zoster Vaccines Completed 09/26/2019, 06/10, 10/10/2009 VITAMIN D LEVEL ONCE IN A LIFETIME-USE SMARTSET# 10482 Completed 12/16/2023, 12/17/2022 COVID-19 Vaccine Completed 06/12/2024, [...] filedocumented as of this encounter Results * (ABNORMAL) COMPREHENSIVE METABOLIC PANEL (06/28/2024 11:36 AM EDT) BUN 18 6 - 20 mg/dL 06/28/2024 12:49 PM EDT [facility]- CREATININE 1.2 0.6 - 1.2 mg/dL 06/28/2024 12:49 PM EDT [facility]- EGFR 58(L) >=60 mL/min 06/28/2024 12:49 PM EDT [facility] 56- Comment:eGFR is calculated b ased on the CKD-EPI 2020 equation. SODIUM 138 135 - 146 mmol/L 06/28/2024 12:49 PM EDT [facility]- POTASSIUM 4.2 3.5 - 5.1 mmol/L 06/28/2024 12:49 PM EDT [facility]- CHLORIDE 101 98 - 107 mmol/L 06/28/2024 12:49 PM EDT [facility]- CO2 28 22 - 32 mmol/L 06/28/2024 12:[address] ANION GAP 9 7 - 15 mmol/L 06/28/2024 12:[address] GLUCOSE 97 70 - 120 mg/dL 06/28/2024 12:49 PM EDT [address] Albumin 4.0 3.8 - 5.0 g/dL 06/28/2024 12:[address] AST 20 10 - 50 U/L 06/28/2024 12:49 PM EDT [address] Alkaline Phosphatase 52 35 - 130 U/L 06/28/2024 12:49 PM EDT [address] Bilirubin, Total 0.4 <=1.2 mg/dL 06/28/2024 12:49 PM EDT [address] CALCIUM 9.3 8.4 - 10.2 mg/dL 06/28/2024 12:49 PM EDT [address] Protein 6.0 6.0 - 8.3 g/dL 06/28/2024 12:[address]T [address] ALT 14 10 - 50 U/L 06/28/2024 12:49 PM EDT [address] Blood Venous blood specimen / Unknown Venipuncture / Unknown 06/28/2024 11:36 AM EDT 06/28/2024 11:36 AM EDT Iris Julian MD LAB BLOOD ORDERABLES [address] [place] [address] * (ABNORMAL) CBC (06/28/2024 11:36 AM EDT) WBC 12.76(H) 4.00 - 10.80 K/uL 06/28/2024 11:59 AM EDT [address] RBC 4.22 4.50 - 5.25 M/uL 06/28/2024 11:59 AM EDT [address] HGB 14.2 14.0 - 16.8 g/dL 06/28/2024 11:59 AM EDT [address] HCT 41.5 40.0 - 48.4 % 06/28/2024 11:59 AM EDT [place] [address] MCV 98.3 82.0 - 99.5 fL 06/28/2024 11:59 AM EDT [address] MCH 33.6 27.0 - 34.0 pg 06/28/2024 11:59 AM EDT [address] MCHC 34.2 32.0 - 36.0 g/dL 06/28/2024 11:59 AM EDT [address] RDW 14.0 11.5 - 15.5 % 06/28/2024 11:59 AM EDT [address] PLT 221 140 - 400 K/uL 06/28/2024 11:59 AM EDT [address] MPV 10.3 6.6 - 11.1 fL 06/28/2024 11:59 AM EDT [address] Blood Venous blood specimen / Unknown Venipuncture / Unknown 06/28/2024 11:36 AM EDT 06/28/2024 11:36 AM EDT Iris Julian MD LAB BLOOD ORDERABLES [place] [address] [place] [address] documented in this encounter Visit Diagnoses Diagnosis COVID-19 virus infection- Primary Other specified hypotension Sinus bradycardia Other specified cardiac dysrhythmias Recurrent cellulitis of lower leg Cellulitis and abscess of leg, except foot Primary osteoarthritis of right knee Primary localized osteoarthrosis, lower leg HTN, goal below 140/90 Unspecified essential hypertension Thoracic aortic aneurysm without rupture, unspecified part (HCC) Irritable bowel syndrome with diarrhea Irritable bowel syndrome CLL (chronic lymphocytic leukemia) (HCC) Chronic lymphoid leukemia, without mention of having achieved remission Chronic kidney disease, stage 3a (HCC) Carrington's esophagus without dysplasia Carrington's esophagus PMR (polymyalgia rheumatica) (HCC) Polymyalgia rheumatica documented in this encounter Care Teams Lead Portfolio Manager Relationship Specialty Start Date End Date Amos Pastrana MD [facility] [place] [address] PCP - General Family Medicine 04/28/24 documented as of this encounter
--- OUTSIDE RECORDS SUMMARY | 2024-10-05 12:35 | External Medical Summary | Summary of Care ---
Author Name Unknown Organization [facility] Address [address] [place] [address] Phone [phone] Care Team Providers Care Private Duty Rn Name Role Phone Amos Pastrana MD Primary Care Provider + Reason for Visit * Reason Comments Medication Administration Vitamin B12 1, 000mcg Encounter Details Date Type Department Care Team (Late st Contact Info) Description 07/03/2024 3:45 PM EDT Immunization/I njection Hematology/Oncology Treatment, [address] [phone] Fanta, Chair [address] [phone] Vitamin B12 deficiency (dietary) anemia* Allergies Active [...] as of this encounter (statuses as of 07/03/2024) Medications Medication Sig Dispensed Refills Start Date [...] MG Oral Tablet (Deltasone)Indicati ons:PMR (polymyalgia rheumatica) ([facility]) Take 1 Tablet by mouth in the morning. 90 Tablet 3 11/29/2023 Active Metoprolol Succinate ER 25 MG Oral Tablet Extended Release 24 Hour (toPROL XL)Indications:Paro xysmal atrial fibrillation ([facility]),Cardiac pacemaker in situ,SSS (sick sinus syndrome) ([facility]),RBBB (right bundle branch block),HTN, goal below [...] Oral Capsule (Imbruvica)Indicati ons:CLL (chronic lymphocytic leukemia) ([facility]) TAKE 3 CAPSULES BY MOUTH IN [...] as of this encounter (statuses as of 07/03/2024) Active Problems Problem Noted Date Diagnosed Date [...] 11/30/2013 Lung nodule 10/30/2012 Overview: RLL. Stable [id number]. 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 Consider lulu 5y. 03/24- EGD-stage C0-M1 per [place] criteria. No dysplasia. REC LULU 03/2018 Other specified glaucoma Generalized osteoarthritis Irritable bowel syndrome documented as of this encounter (statuses as of 07/03/2024) Resolved Problems Problem Noted Date Diagnosed Date [...] . 10/28 4.6 thror aneurysm on [facility] CT--TTE orderd for 6mo 2016-f [facility] [place] copy on file 01/24 colon-WNL 01/22 ACC risk 24% declined statin. 11/23 PFTs WNL 06/22 colonoscopy WNL. +int hemorrhoids, divertic. 12/20 fell on ice-UOC rec tendon repair knee 10/22 pt declined prostate screen Bradycardia 10/30/2012 01/07/2020 Dyslipidemia 10/05/2021 Rotator cuff injury 04/28/20 Overview: right documented as of this encounter (statuses as of 07/03/2024) Immunizations Name Administration Dates Next Due COVID-19 [...] as of this encounter Nursing Notes * Shanna Mathews LPN - 07/03/2024 3:57 PM EDT Vitamin B12 1,000mcg administered IM into the left deltoid muscle per standing order. Patient tolerated injection and will return in 6 weeks. documented in this encounter Plan of Treatment Upcoming Encounters Date Type Department Care Team (Late st Contact Info) Description 07/12/2024 2:40 PM EDT Office Visit Family Practice [facility] [address] [place] [address] Mansi Busch CRNP [address] [place] [address] 07/16/2024 9:00 AM EDT Pharmacy Pharmacy Hematology Oncology [facility] [place] [address] [place] [address] [facility], [facility] Clinic Hem/Onc [address] [place] [address] 07/31/2024 3:30 PM EDT Immunization/Injecti on Hematology/Oncology Treatment, [place] [address] [place] [phone] F[place], Chair 7 Hem Onc [address] [facility] [address] 11/06/2024 10:30 AM EST Office Visit Cardiology, [facility] [address] [place] [address] Quyen Connolly CRNP [address] [facility] [place] [phone] 11/15/2024 10:30 AM EST Office Visit Rheumatology [place] [phone] [facility] [place] [address] Mario Dover PA-C [address] [place] [address] 12/04/2024 2:00 PM EST Laboratory Laboratory [facility] [address] [place] [phone] [facility] [address] [place] [address] 12/11/2024 1:45 PM EST Office Visit Hematology/Oncology [facility] [place] [address] [place] [phone] Jesus Penaloza MD [address] [place], [place] [address] Health Maintenance Due Date Last Done Comments CKD PHOS USE SMARTSET 81581 1953 Adult Wellness Visit 11/26/2020 11/26/2019 Carrington's Esophagus Surveilance 04/03/2021 04/03/2018, 04/03/2018, 04/01/2015, Additional history exists *BISPHONATE OR OTHER ACCEPTABLE MEDICATION NEEDED FOR OSTEOPOROSIS (REFER TO SMARTSET #1146) 12/30/2023 Albumin/Creatinine Ratio 07/29/2024 07/29/2023, 05/10 DXA Scan 11/10/2024 11/10/2022, 11/10/2022 Depression Screening 01/26/2025 01/27/2024 CKD HGB USE SMARTSET 76521 06/28/202506/28, 05/11/2024, 05/11/2024, Additional history exists DTap/Tdap Vaccines (3 - Td or Tdap) 06/30/2032 06/30/2022, 10/30/2012 Pneumococcal Vaccine: 65+ Years Completed 07/25/2015, 10/10/2002 Zoster Vaccines Completed 09/26/2019, 06/10, 10/10/2009 VITAMIN D LEVEL ONCE IN A LIFETIME-USE SMARTSET# 20167 Completed 12/16/2023, 12/17/2022 COVID-19 Vaccine Completed 06/12/2024, [...] 1,000 mcg 1,000 mcg, Intramuscular, ONCE, On Tue07/03/24 at 1645, For 1 dose Given 07/03/2024 3:53 PM EDT 1,000 mcg Deltoid Left Upper documented in this encounter Care Teams Private Duty Rn Relationship Specialty Start Date End Date Amos Pastrana MD [address] [facility] [place] [address] PCP - General Family Medicine 04/28/24 documented as of this encounter
--- OUTSIDE RECORDS SUMMARY | 2024-10-05 12:35 | External Medical Summary ---
Author Name Unknown Address Unknown Organization [facility] [address] [place] [address] Laboratory Report Ordering Provider Test Date Status EFRAIN VILLALBA 07/10/2024 11:23:58 Final Observation Date Value Abnormality Reference (Units ) Status SYNC LEUKOCYTES IN BLOOD BY AUTOMATED COUNT 07/10/2024 11:23:58 10.41 4.00-10.80 (K/uL) Final Segs 07/10/2024 11:23:58 53.9 40.0-75.0 (%) Final Lymphs % 07/10/2024 11:23:58 34.0 18.0-42.0 (%) Final Monos 07/10/2024 11:23:58 10.5 1.0-11.0 (%) Final Eosinophils 07/10/2024 11:23:58 1.2 0.0-6.0 (%) Final Basos 07/10/2024 11:23:58 0.4 0.0-2.0 (%) Final Absolute Segs 07/10/2024 11:23:58 5.61 1.80-7.70 (K/uL) Final Lymphs, absolute 07/10/2024 11:23:58 3.54 1.00-4.80 (K/ul) Final Monos, Abs 07/10/2024 11:23:58 1.09 0.00-1.10 (K/uL) Final Eos, Abs 07/10/2024 11:23:58 0.13 0.00-0.70 (K/uL) Final Basos, Abs 07/10/2024 11:23:58 0.04 0.00-0.20 (K/uL) Final Performing Location [facility] 0 - [address] [place] [address]
--- OUTSIDE RECORDS SUMMARY | 2024-10-05 12:35 | External Medical Summary ---
Author Name Unknown Address Unknown Organization [facility] - [address] [place] [address] Laboratory Report Ordering Provider Test Date Status EFRAIN VILLALBA 07/10/2024 11:23:58 Final Observation Date Value Abnormality Reference (Units ) Status BUN 07/10/2024 11:23:58 20 6-20 (mg/dL) Final Creatinine 07/10/2024 11:23:58 1.4 Above high normal 0.6-1.2 (mg/dL) Final Glomerular filtration rate/1.73 sq M.predicted [Volume Rate/Area] in Serum, Plasma or Blood by Creatinine-based formula (CKD-EPI) 07/10/2024 11:23:58 50 Below low normal >=60 (mL/min) Final eGFR is calculated based on the CKD-EPI 2020 equation. Sodium 07/10/2024 11:23:58 133 Below low normal 135 -146 (mmol/L) Final Potassium 07/10/2024 11:23:58 4.1 3.5-5.1 (m mol/L) Final Cl 07/10/2024 11:23:58 94 Below low normal 98- 107 (mmol/L) Final CO2 07/10/2024 11:23:58 29 22-32 (mmo l/L) Final Anion gap 07/10/2024 11:23:58 10 7-15 (mmol /L) Final Glucose 07/10/2024 11:23:58 87 70-120 (mg /dL) Final Albumin 07/10/2024 11:23:58 3.8 3.8-5.0 (g /dL) Final AST (Aspartate aminotransferase) 07/10/2024 11:23:58 16 10-50 (U/L) Fin al Alk Phos 07/10/2024 11:23:58 54 35-130 (U/ L) Final Bilirubin, Total 07/10/2024 11:23:58 0.5 <=1 .2 (mg/dL) Final Calcium 07/10/2024 11:23:58 9.4 8.4-10.2 ( mg/dL) Final Protein 07/10/2024 11:23:58 6.1 6.0-8.3 (g /dL) Final ALT (Alanine aminotransferase) 07/10/2024 11:23:58 12 10-50 (U/L) Anselmo batres Performing Location [facility]-[address] 0 - [address] [place] [address]
--- OUTSIDE RECORDS SUMMARY | 2024-10-05 12:35 | External Medical Summary | Summary of Care ---
Author Name Unknown Organization [facility] Address [address] [place] [address] Phone [phone] Care Team Providers Care Woolen Suiting Shrinker Name Role Phone Amos Pastrana MD Primary Care Provider + Reason for Visit * Reason Comments Outpatient Testing Encounter Details Date Type Department Care Team (Late st Contact Info) Description 07/10/2024 11:10 AM EDT Laboratory Laboratory, [facility] [address] [place] [address] [facility] [address] [facility] [address] CLL (chronic lymphocytic leukemia) (HCC); HTN, goal below 150/90; Routine medical exam; Chronic kidney disease, stage 3a ([facility]); Dyslipidemia, goal LDL below 100; [...] Tablet (Deltasone)Indicati ons:PMR (polymyalgia rheumatica) ([facility]) Take 1 Tablet by mouth in the morning. 90 Tablet 3 11/29/2023 Active Metoprolol Succinate ER 25 MG Oral Tablet Extended Release 24 Hour (toPROL XL)Indications:Paro xysmal atrial fibrillation ([facility] [...] (Imbruvica)Indicati ons:CLL (chronic lymphocytic leukemia) ([facility] [...] 11/30/2013 Lung nodule 10/30/2012 Overview: RLL. Stable [id number]. 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 Consider lulu 5y. 03/24- EGD-stage C0-M1 per [facility] criteria. No dysplasia. 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 on [facility] CT--TTE orderd for 6mo 2017-f [...] 2:40 PM EDT Office Visit Family Practice [facility] [address] [place] [address] Mansi Busch CRNP [address] [place] [address] 07/16/2024 9:00 AM EDT Pharmacy Pharmacy Hematology Oncology [facility] [address] [place] [address] [facility], [facility] Hem/Onc [address] [place] [address] 07/31/2024 3:30 PM EDT Immunization/Injecti on Hematology/Oncology Treatment, [place] [address] [place] [address] [place], Chair [address] Hem On[address] [place] [address] 11/06/2024 10:30 AM EST Office Visit Cardiology, [facility] [address] [place] [address] Quyen Connolly CRNP [address] [facility] [place] [address] 11/15/2024 10:30 AM EST Office Visit Rheumatology [facility] [address] [place] [address] Mario Dover PA-C [address] [place] [address] 12/04/2024 2:00 PM EST Laboratory Laboratory [facility] 200 [facility] [place] [phone] [place], Lab [facility] 200 [facility] [place] [address] 12/11/2024 1:45 PM EST Office Visit Hematology/Oncology [facility] [place] [address] [place] [phone] Jesus Penaloza MD [address] [facility] [place] [address] Pending Results Name Type Priority Associated Diagnoses Date /Time CBC WITH WBC DIFFERENTIAL Lab STAT CLL (chronic lymphocytic leukemia) ([facility]) 07/10/2024 11:23 AM EDT COMPREHENSIVE METABOLIC PANEL Lab STAT CLL (chronic lymphocytic leukemia) ([facility]) 07/10/2024 11:23 AM EDT URIC ACID Lab STAT CLL (chronic lymphocytic leukemia) ([facility]) 07/10/2024 11:23 AM EDT LD Lab STAT CLL (chronic lymphocytic leukemia) ([facility]) 07/10/2024 11:23 AM EDT PHOSPHORUS Lab Routine Routine medical exam Chronic kidney disease, stage 3a ([facility]) 07/10/2024 11:23 AM EDT LIPID PANEL WITH DIRECT LDL IF TG IS HIGH Lab Routine Dyslipidemia, goal LDL below 100 Routine medical exam Encounter for long-term (current) use of medications 07/10/2024 11:23 AM EDT CBC Lab STAT CLL (chronic lymphocytic leukemia) ([facility]) 07/10/2024 11:23 AM EDT DIFFERENTIAL, AUTOMATED Lab STAT CLL (chronic lymphocytic leukemia) ([facility]) 07/10/2024 11:23 AM EDT Health Maintenance Due Date Last Done Comments CKD PHOS USE SMARTSET 66464 1953 Adult Wellness Visit 11/26/2020 11/26/2019 Carrington's Esophagus Surveilance 04/03/2021 04/03/2018, 04/03/2018, 04/01/2015, Additional history exists *BISPHONATE OR OTHER ACCEPTABLE MEDICATION NEEDED FOR OSTEOPOROSIS (REFER TO SMARTSET #1146) 12/30/2023 Albumin/Creatinine Ratio 07/29/2024 07/29/2023, 05/10 DXA Scan 11/10/2024 11/10/2022, 11/10/2022 Depression Screening 01/26/2025 01/27/2024 CKD HGB USE SMARTSET 67643 06/28/202506/28, 05/11/2024, 05/11/2024, Additional history exists DTap/Tdap Vaccines (3 - Td or Tdap) 06/30/2032 06/30/2022, 10/30/2012 Pneumococcal Vaccine: 65+ Years Completed 07/25/2015, 10/10/2002 Zoster Vaccines Completed 09/26/2019, 06/10, 10/10/2009 VITAMIN D LEVEL ONCE IN A LIFETIME-USE SMARTSET# 92076 Completed 12/16/2023, 12/17/2022 COVID-19 Vaccine Completed 06/12/2024, [...] medications documented in this encounter Care Teams Woolen Suiting Shrinker Relationship Specialty Start Date End Date Amos Pastrana MD [address] [place] [address] PCP - General Family Medicine 04/28/24 documented as of this encounter
--- OUTSIDE RECORDS SUMMARY | 2024-10-05 12:35 | External Medical Summary | Summary of Care ---
Author Name Unknown Organization [facility] Address [address] [place] [address] Phone [phone] Care Team Providers Care Aircraft Worker Name Role Phone Amos Pastrana MD Primary Care Provider + Reason for Visit * Reason Comments Re-Check 4 week-- had labs co mpleted Encounter Details Date Type Department Care Team (Late st Contact Info) Description 07/12/2024 2:40 PM EDT Office Visit Family Practice [facility] [address] [place] [address] Mansi Busch CRNP [address] [place] [address] HTN, goal below 140/90*; Chronic kidney disease, stage 3a ([facility]); CLL (chronic lymphocytic leukemia) ([facility]) Allergies Active Allergy Reactions Criticality Noted [...] as of this encounter (statuses as of 07/12/2024) Medications Medication Sig Dispensed Refills Start Date [...] MG Oral Tablet (Deltasone)Indicati ons:PMR (polymyalgia rheumatica) ([facility]) Take 1 Tablet by mouth in the morning. 90 Tablet 3 11/29/2023 Active Metoprolol Succinate ER 25 MG Oral Tablet Extended Release 24 Hour (toPROL XL)Indications:Paro xysmal atrial fibrillation ([facility]),Cardiac pacemaker in situ,SSS (sick sinus syndrome) ([facility]),RBBB (right bundle branch block),HTN, goal below [...] Oral Capsule (Imbruvica)Indicati ons:CLL (chronic lymphocytic leukemia) ([facility]) TAKE 3 CAPSULES BY MOUTH IN [...] as of this encounter (statuses as of 07/12/2024) Active Problems Problem Noted Date Diagnosed Date [...] 11/30/2013 Lung nodule 10/30/2012 Overview: RLL. Stable [id number]. 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 Consider lulu 5y. 03/24- EGD-stage C0-M1 per [place] criteria. No dysplasia. REC LULU 03/2018 Other specified glaucoma Generalized osteoarthritis Irritable bowel syndrome documented as of this encounter (statuses as of 07/12/2024) Resolved Problems Problem Noted Date Diagnosed Date [...] . 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 11/23 PFTs WNL 06/22 colonoscopy WNL. +int hemorrhoids, divertic. 12/20 fell on ice-UOC rec tendon repair knee 10/22 pt declined prostate screen Bradycardia 10/30/2012 01/07/2020 Dyslipidemia 10/05/2021 Rotator cuff injury 04/28/20 Overview: right documented as of this encounter (statuses as of 07/12/2024) Immunizations Name Administration Dates Next Due COVID-19 [...] Sign Reading Time Taken Comments Blood Pressure 112/76 07/12/2024 2:37 PM EDT Pulse 78 07/12/2024 2:37 PM EDT Temperature 35.6 C (96 F) 07/12/2024 2:37 PM EDT Respiratory Rate - - Oxygen Saturation 93% 07/12/2024 2:37 PM EDT Inhaled Oxygen Concentration - - Weight 81.7 kg (180 lb 3.2 oz) 07/12/2024 2:37 P M EDT Height - - Body Mass Index 27.4 06/28/2024 11:03 AM EDT documented in this encounter Progress Notes * Mansi Busch CRNP - 07/12/2024 2:47 PM EDT Images from the original note were not included. History of Present Illness Marv Fragoso is a 89 year old male that presents for Re-Check (4 week-- had labs completed ) HPI Here for 4wk BP recheck. He had is labs done for review as well. He had low dose HCTZ added at lastvisit. He had a covid infection in the interim from which he has recovered but did have to hold some of his medications at that time due to low BP. He also had an episode of afib and Dr Keenan put him on Eliquis BID. He reports he was asymptomatic and it occurred during his covid infection. Current Outpatient Medications Medication Sig Dispense Refill Apixaban 2.5 MG Oral Tablet (Eliquis) Take 1 Tablet by mouth in the morning and 1 Tablet before bedtime. Atorvastatin Calcium 20 MG Oral Tablet (Lipitor) TAKE 1 TABLET BY MOUTH EVERY DAY 90 Tablet 0 hydroCHLOROthiazide 12.5 MG Oral Capsule Take 1 Capsule by mouth in the morning. 30 Capsule 5 Ibrutinib 140 MG Oral Capsule (Imbruvica) TAKE 3 CAPSULES BY MOUTH IN THE MORNING. TAKE MEDICATION AT SAME TIME EVERY DAY 90 Capsule 5 Omeprazole 40 MG Oral Capsule Delayed Release (PriLOSEC) Take 1 Capsule by mouth in the morning and1 Capsule before bedtime. 180 Capsule 2 Metoprolol Succinate ER 25 MG Oral Tablet Extended Release 24 Hour (toPROL XL) Take 1 Tablet by mouth in the morning and 1 Tablet before bedtime. 180 Tablet 3 predniSONE 5 MG Oral Tablet (Deltasone) Take 1 Tablet by mouth in the morning. 90 Tablet 3 Losartan Potassium 50 MG Oral Tablet (Cozaar) Take 1 Tablet by mouth in the morning. 30 Tablet 5 Centrum Adults Oral Tablet 1 tab daily 1 Tablet 0 COMBIGAN 0.2-0.5 % OP SOLN Instill 1 Drop into the right eye in the morning and 1 Drop before bedtime. No current facility-administered medications for this visit. Physical Exam Vitals: 07/12/24 1437 Temp: 35.6 C (96 F) Pulse: 78 SpO2: 93% BP: 112/76 Physical Exam Vitals reviewed. Constitutional: General: He is not in acute distress. HENT: Head: Normocephalic and atraumatic. Cardiovascular: Rate and Rhythm: Normal rate and regular rhythm. Heart sounds: Normal heart sounds. Pulmonary: Effort: Pulmonary effort is normal. Breath sounds: Normal breath sounds. Musculoskeletal: Right lower leg: No edema. Left lower leg: No edema. Neurological: Mental Status: He is alert and oriented to person, place, and time. Psychiatric: Behavior: Behavior normal. Thought Content: Thought content normal. Assessment and Plan HTN, goal below 140/90 Cr 1.1 baseline now 1.4 with addition of hctz I would like to get another BMP in 1-2 weeks - discussed importance of hydrating well. Consider switch to low dose amlodipine though in past the 5mg dose caused considerable leg swelling - BASIC METABOLIC PANEL; Future Chronic kidney disease, stage 3a (HCC) - BASIC METABOLIC PANEL; Future CLL (chronic lymphocytic leukemia) (HCC) Wrap-Up Follow Up: Return if symptoms worsen or fail to improve. Time: I spent a total of 20-29 minutes (exact time 20 mins) on the date of service in preparation, delivery, and documentation of the care provided to Marv Fragoso excluding any time spent in the performance of separately billed services. documented in this encounter Nursing Notes * Caitlin Panda LPN - 07/12/2024 2:36 PM EDT The patient has been properly identified by confirmation of name and date of . Chief Complaint Patient presents with Re-Check 4 week-- had labs completed documented in this encounter Plan of Treatment Upcoming Encounters Date Type Department Care Team (Late st Contact Info) Description 07/16/2024 9:00 AM EDT Pharmacy Pharmacy Hematology Oncology [facility] [address] [place] [address] [facility] Hem/Onc [address] [place] [address] 07/31/2024 3:30 PM EDT Immunization/Injecti on Hematology/Oncology Treatment, [place] [address] [place] [phone] [place], Chair [address] [place] [address] 11/06/2024 10:30 AM EST Office Visit Cardiology, [facility] [address] [facility] [place] [address] Quyen Connolly CRNP [address] [place] [address] 11/15/2024 10:30 AM EST Office Visit Rheumatology [facility] [address] [facility] [address] [place] [address] Mario Dover PA-C [address] [place] [address] 12/04/2024 2:00 PM EST Laboratory Laboratory [facility] [place] [address] [place] [phone] [place] Lab [facility] [address] [facility] [place] [address] 12/11/2024 1:45 PM EST Office Visit Hematology/Oncology [facility] [place] [address] [facility] [place] [phone] Jesus Penaloza MD [address] [facility] [place] [address] Scheduled Orders Name Type Priority Associated Diagnoses Orde r Schedule BASIC METABOLIC PANEL Lab Routine HTN, goal below 140/90 Chronic kidney disease, stage 3a (HCC) Expected: 07/26/2024 (Approximate), Expires: 07/12/2025 Health Maintenance Due Date Last Done Comments Adult Wellness Visit 11/26/2020 11/26/2019 Carrington's Esophagus Surveilance 04/03/2021 04/03/2018, 04/03/2018, 04/01/2015, Additional history exists *BISPHONATE OR OTHER ACCEPTABLE MEDICATION NEEDED FOR OSTEOPOROSIS (REFER TO SMARTSET #1146) 12/30/2023 Albumin/Creatinine Ratio 07/29/2024 07/29/2023, 05/10 DXA Scan 11/10/2024 11/10/2022, 11/10/2022 Depression Screening 01/26/2025 01/27/2024 CKD HGB USE SMARTSET 61246 07/10/202507/10, 07/10/2024, 06/28/2024, Additional history exists CKD PHOS USE SMARTSET 96601 07/10/2025 07/10/2024 DTap/Tdap Vaccines (3 - Td or Tdap) 06/30/2032 06/30/2022, 10/30/2012 Pneumococcal Vaccine: 65+ Years Completed 07/25/2015, 10/10/2002 Zoster Vaccines Completed 09/26/2019, 06/10, 10/10/2009 VITAMIN D LEVEL ONCE IN A LIFETIME-USE SMARTSET# 70009 Completed 12/16/2023, 12/17/2022 COVID-19 Vaccine Completed 06/12/2024, [...] encounter Visit Diagnoses Diagnosis HTN, goal below 140/90- Primary Unspecified essential hypertension Chronic kidney disease, stage 3a (HCC) CLL (chronic lymphocytic leukemia) (HCC) Chronic lymphoid leukemia, without mention of having achieved remission documented in this encounter Care Teams Aircraft Worker Relationship Specialty Start Date End Date Amos Pastrana MD [address] [place] [address] PCP - General Family Medicine 04/28/24 documented as of this encounter
--- OUTSIDE RECORDS SUMMARY | 2024-10-05 12:35 | External Medical Summary ---
Author Name Unknown Address Unknown Organization [id number]:[facility] - [address] [facility] [place] [address] Laboratory Report Ordering Provider Test Date Status AJ CHAUHAN 07/10/2024 11:23:58 Final Observation Date Value Abnormality Reference (Units ) Status Triglyceride 07/10/2024 11:23:58 137 <=174 ( mg/dL) Final Triglyceride Reference Range s (mg/dL):
<150 Acceptable
150-174 Borderline high
175-499 High
>=500 Very high Cholesterol 07/10/2024 11:23:58 175 <200 (mg /dL) Final Total Cholesterol Reference Ranges (mg/dL):
<200 Desirable
200-239 Borderline high
>=240 High HDL 07/10/2024 11:23:58 68 >39 (mg/dL ) Final HDL Cholesterol Reference Ra nges (mg/dL):
>=60 High (Desirable)
<50 Low (Undesirable) For Females
<40 Low (Undesirable) For Males NON-HDL CHOLESTEROL 07/10/2024 11:23:58 107 <=159 (mg/dL) Final Non-HDL Cholesterol Referenc e Range (mg/dL):
<100 Target level for high risk ASCVD patient
<130 Optimal for general population
130-159 Near optimal for general population
160-189 Borderline High
190-219 High
>=220 Very High LDL, (calculated) 07/10/2024 11:23:58 80 <= 129 (mg/dL) Final LDL Cholesterol Reference Ra nges (mg/dL):
<70 Target level for high risk ASCVD patient
<100 Optimal for general population
100-129 Near optimal for general population
130-159 Borderline high
160-189 High
>=190 Very high Performing Location [facility] - [address] [facility] [address]
--- OUTSIDE RECORDS SUMMARY | 2024-10-05 12:35 | External Medical Summary ---
Author Name Unknown Address Unknown Organization [id number]:[facility] - [address] [place] [address] Laboratory Report Ordering Provider Test Date Status EFRAIN VILLALBA 07/10/2024 11:23:58 Final Observation Date Value Abnormality Reference (Units ) Status Nucleated erythrocytes/100 leukocytes [Ratio] in Blood by Automated count 07/10/2024 11:23:58 Final Variant lymphocytes [Presence] in Blood by Light microscopy 07/10/2024 11:23:58 Present Abnormal None Seen Final Performing Location [facility] - [address] [place] [address]
--- OUTSIDE RECORDS SUMMARY | 2024-10-05 12:35 | External Medical Summary | Summary of Care ---
Author Name Unknown Organization [facility] Address [address] [place] [address] Phone [phone] Care Team Providers Care Document Review Attorney Name Role Phone Amos Pastrana MD Primary Care Provider + Reason for Visit * Reason Onset Date Comments Pacemaker Check 06/29/2024 Encounter Details Date Type Department Care Team (Late st Contact Info) Description 06/29/2024 Telephone Cardiology, [address] [address] Nikole Cabezas, JOSEF Pacemaker Check Allergies Active Allergy Reactions Criticality [...] MG Oral Tablet (Deltasone)Indicat ions:PMR (polymyalgia rheumatica) ([facility]) Take 1 Tablet by mouth in the morning. 90 Tablet 3 11/29/2023 Active Metoprolol Succinate ER 25 MG Oral Tablet Extended Release 24 Hour (toPROL XL)Indications:Par oxysmal atrial fibrillation ([facility]),Cardiac pacemaker in situ,SSS (sick sinus syndrome) ([facility]),RBBB (right bundle branch block),HTN, goal [...] Oral Capsule (Imbruvica)Indicat ions:CLL (chronic lymphocytic leukemia) ([facility]) TAKE 3 CAPSULES BY MOUTH [...] this for 5 days. 40 Capsule 06/24/2024 Active Apixaban 2.5 MG Oral Tablet (Eliquis) Take 1 Tablet by mouth in the morning and 1 Tablet before bedtime. 06/29/2024 Active Apixaban 2.5 MG Oral Tablet (Eliquis) Take by mouth 2 times a day. 06/29/2024 4 Discontinue d(Medicatio n List Clean Up) [...] 11/30/2013 Lung nodule 10/30/2012 Overview: RLL. Stable [id number]. 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 Consider lulu 5y. 03/24- EGD-stage C0-M1 per [place] criteria. No dysplasia. 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 TIAGO Devi * Telephone Encounter - Nagi Adan NRCMA - 06/29/2024 1:[address] Keenan verbal instruction, pt is to restart eliquis at 2.5 bid and increase met to 37.5 bidif pt is symptomatic, if no symptoms of palp or SOB, stay at 25 mg bid b/c of lung issues (it may worsen with higher dose of beta-blockers) TIAGO Devi * Telephone Encounter - Nikole Cabezas RN - 06/29/2024 7:15 AM EDT Remote transmission received and reviewed. Providers see scanned reports in scans tab. 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 documented in this encounter Plan of Treatment Upcoming Encounters Date Type Department Care Team (Late st Contact Info) Description 07/03/2024 3:45 PM EDT Immunization/Injecti on Hematology/Oncology Treatment, [place] [address] [place] [phone] [place], Chair 7 Hem Onc [address] [place] [address] 07/12/2024 2:40 PM EDT Office Visit Family Practice [facility] [address] [place] [address] Mansi Busch CRNP 132 [facility] [place] [address] 07/16/2024 9:00 AM EDT Pharmacy Pharmacy Hematology Oncology [facility] [address] [place] [address] [facility] Hem/Onc [address] [place] [address] 11/06/2024 10:30 AM EST Office Visit Cardiology, [facility] [address] [facility] [place] [address] Quyen Connolly CRNP 400 [facility] [place], [place] [phone] 11/15/2024 10:30 AM EST Office Visit Rheumatology [place] [phone] [facility] [place] [address] Mario Dover PA-C [facility] [place] [address] 12/04/2024 2:00 PM EST Laboratory Laboratory [facility] [address] [place] [phone] [facility] 200 [facility] [place] [address] 12/11/2024 1:45 PM EST Office Visit Hematology/Oncology [facility] [place] [address] [place] [address] Jesus Penaloza MD [address] [place] [address] Health Maintenance Due Date Last Done Comments CKD PHOS USE SMARTSET 54224 1953 Adult Wellness Visit 11/26/2020 11/26/2019 Carrington's Esophagus Surveilance 04/03/2021 04/03/2018, 04/03/2018, 04/01/2015, Additional history exists *BISPHONATE OR OTHER ACCEPTABLE MEDICATION NEEDED FOR OSTEOPOROSIS (REFER TO SMARTSET #1146) 12/30/2023 *NEPHROLOGY 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 05/20/2024 Albumin/Creatinine Ratio 07/29/2024 07/29/2023, 05/10 DXA Scan 11/10/2024 11/10/2022, 11/10/2022 Depression Screening 01/26/2025 01/27/2024 CKD HGB USE SMARTSET 60337 06/28/202506/28, 05/11/2024, 05/11/2024, Additional history exists DTap/Tdap Vaccines (3 - Td or Tdap) 06/30/2032 06/30/2022, 10/30/2012 Pneumococcal Vaccine: 65+ Years Completed 07/25/2015, 10/10/2002 Zoster Vaccines Completed 09/26/2019, 06/10, 10/10/2009 VITAMIN D LEVEL ONCE IN A LIFETIME-USE SMARTSET# 03105 Completed 12/16/2023, 12/17/2022 COVID-19 Vaccine Completed 06/12/2024, [...] filedocumented as of this encounter Care Teams Document Review Attorney Relationship Specialty Start Date End Date Amos Pastrana MD [address] [facility] [place] [address] PCP - General Family Medicine 04/28/24 documented as of this encounter
--- OUTSIDE RECORDS SUMMARY | 2024-10-05 12:35 | External Medical Summary | Summary of Care ---
Author Name Unknown Organization [facility] Address [address] [place] [address] Phone [phone] Care Team Providers Care Character Impersonator Name Role Phone Amos Pastrana MD Primary Care Provider + Reason for Visit * Reason Onset Date Comments Pacemaker Check 06/29/2024 Encounter Details Date Type Department Care Team (Late st Contact Info) Description 06/29/2024 Telephone Cardiology, [address] [address] Nikole Cabezas, JOSEF Pacemaker Check [...] MG Oral Tablet (Deltasone)Indicat ions:PMR (polymyalgia rheumatica) ([facility]) Take 1 Tablet by mouth in the morning. 90 Tablet 3 11/29/2023 Active Metoprolol Succinate ER 25 MG Oral Tablet Extended Release 24 Hour (toPROL XL)Indications:Par oxysmal atrial fibrillation ([facility]),Cardiac pacemaker in situ,SSS (sick sinus syndrome) ([facility]),RBBB (right bundle branch block),HTN, goal [...] Oral Capsule (Imbruvica)Indicat ions:CLL (chronic lymphocytic leukemia) ([facility]) TAKE 3 CAPSULES BY MOUTH [...] 11/30/2013 Lung nodule 10/30/2012 Overview: RLL. Stable [id number]. 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 Consider lulu 5y. 03/24- EGD-stage C0-M1 per Rombauer criteria. No dysplasia. 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 documented in this encounter Plan of Treatment Upcoming Encounters Date Type Department Care Team (Late st Contact Info) Description 07/03/2024 3:45 PM EDT Immunization/Injecti on Hematology/Oncology Treatment, [place] [address] [place] [phone] Fanta, Chair 7 Hem Onc [address] [place] [address] 07/12/2024 2:40 PM EDT Office Visit Family Practice [facility] [address] [place] [address] Mansi Busch CRNP 132 [facility] [place] [address] 07/16/2024 9:00 AM EDT Pharmacy Pharmacy Hematology Oncology [facility] [address] [place] [address] [facility] Hem/Onc [address] [place] [address] 11/06/2024 10:30 AM EST Office Visit Cardiology, [facility] 132 [facility] [place] [address] Quyen Connolly CRNP 400 [facility] [place], [place] [phone] 11/15/2024 10:30 AM EST Office Visit Rheumatology [place] [phone] [facility] [place] [address] Mario Dover PA-C [facility] [place] [address] 12/04/2024 2:00 PM EST Laboratory Laboratory [facility] [address] [place] [phone] [facility] 200 [facility] [place] [address] 12/11/2024 1:45 PM EST Office Visit Hematology/Oncology [facility] [place] [address] [place] [address] Jesus Penaloza MD [address] [place] [address] Health Maintenance Due Date Last Done Comments CKD PHOS USE SMARTSET 14003 1953 Adult Wellness Visit 11/26/2020 11/26/2019 Carrington's Esophagus Surveilance 04/03/2021 04/03/2018, 04/03/2018, 04/01/2015, Additional history exists *BISPHONATE OR OTHER ACCEPTABLE MEDICATION NEEDED FOR OSTEOPOROSIS (REFER TO SMARTSET #1146) 12/30/2023 *NEPHROLOGY 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 05/20/2024 Albumin/Creatinine Ratio 07/29/2024 07/29/2023, 05/10 DXA Scan 11/10/2024 11/10/2022, 11/10/2022 Depression Screening 01/26/2025 01/27/2024 CKD HGB USE SMARTSET 86560 06/28/202506/28, 05/11/2024, 05/11/2024, Additional history exists DTap/Tdap Vaccines (3 - Td or Tdap) 06/30/2032 06/30/2022, 10/30/2012 Pneumococcal Vaccine: 65+ Years Completed 07/25/2015, 10/10/2002 Zoster Vaccines Completed 09/26/2019, 06/10, 10/10/2009 VITAMIN D LEVEL ONCE IN A LIFETIME-USE SMARTSET# 67625 Completed 12/16/2023, 12/17/2022 COVID-19 Vaccine Completed 06/12/2024, [...] filedocumented as of this encounter Care Teams Character Impersonator Relationship Specialty Start Date End Date Amos Pastrana MD 132 [facility] [place] [address] PCP - General Family Medicine 04/28/24 documented as of this encounter
--- OUTSIDE RECORDS SUMMARY | 2024-10-05 12:35 | External Medical Summary ---
Author Name Unknown Address Unknown Organization K01:[facility] - [address] [place] [address] Laboratory Report Ordering Provider Test Date Status AJ CHAUHAN 07/10/2024 11:23:58 Final Observation Date Value Abnormality Reference (Units ) Status Phosphate 07/10/2024 11:23:58 4.1 2.5-4.8 (m g/dL) Final Performing Location [facility] - [address] [facility] [address]
--- OUTSIDE RECORDS SUMMARY | 2024-10-05 12:36 | External Medical Summary ---
Author Name Unknown Address Unknown Organization K09:[facility] - [address] [place] [address] Laboratory Report Ordering Provider Test Date Status OPAL SAMUELS 06/28/2024 11:36:20 Final Observation Date Value Abnormality Reference (Units ) Status BUN 06/28/2024 11:36:20 18 6-20 (mg/dL) Final Creatinine 06/28/2024 11:36:20 1.2 0.6-1.2 (mg/dL) Final Glomerular filtration rate/1.73 sq M.predicted [Volume Rate/Area] in Serum, Plasma or Blood by Creatinine-based formula (CKD-EPI) 06/28/2024 11:36:20 58 Below low normal >=60 (mL/min) Final eGFR is calculated based on the CKD-EPI 2020 equation. Sodium 06/28/2024 11:36:20 138 135-146 (m mol/L) Final Potassium 06/28/2024 11:36:20 4.2 3.5-5.1 (m mol/L) Final Cl 06/28/2024 11:36:20 101 98-107 (mm ol/L) Final CO2 06/28/2024 11:36:20 28 22-32 (mmo l/L) Final Anion gap 06/28/2024 11:36:20 9 7-15 (mmol /L) Final Glucose 06/28/2024 11:36:20 97 70-120 (mg /dL) Final Albumin 06/28/2024 11:36:20 4.0 3.8-5.0 (g /dL) Final AST (Aspartate aminotransferase) 06/28/2024 11:36:20 20 10-50 (U/L) Final Alk Phos 06/28/2024 11:36:20 52 35-130 (U/ L) Final Bilirubin, Total 06/28/2024 11:36:20 0.4 <=1 .2 (mg/dL) Final Calcium 06/28/2024 11:36:20 9.3 8.4-10.2 ( mg/dL) Final Protein 06/28/2024 11:36:20 6.0 6.0-8.3 (g /dL) Final ALT (Alanine aminotransferase) 06/28/2024 11:36:20 14 10-50 (U/L) Final Performing Location [facility] [place] [address]
--- OUTSIDE RECORDS SUMMARY | 2024-10-05 12:36 | External Medical Summary | Summary of Care ---
Author Name Unknown Organization [facility] Address [address] [place] [address] Phone [phone] Care Team Providers Care Staple Cutter Name Role Phone Amos Pastrana MD Primary Care Provider + Encounter Details Date Type Department Care Team (Late st Contact Info) Description 04/29/2024 Result Scan Unspecified Department <No scans attached> Allergies Active Allergy Reactions [...] as of this encounter (statuses as of 05/29/2024) Medications Medication Sig Dispensed Refills Start Date End Date Status COMBIGAN 0.2-0.5 % OP SOLN Instill 1 Drop into the right eye in the morning and 1 Drop before bedtime. Active Centrum Adults Oral Tablet 1 tab daily 1 Tablet 12/07/2022 Active Atorvastatin Calcium 20 MG Oral Tablet (Lipitor)Indication s:Dyslipidemia, goal LDL below 100 take 1 tablet by mouth once daily 90 Tablet 3 07/11/2023 Active Ibrutinib 140 MG Oral Capsule (Imbruvica)Indicati ons:CLL (chronic lymphocytic leukemia) (HCC) TAKE 3 CAPSULES BY MOUTH IN THE MORNING. TAKE MEDICATION AT SAME TIME EVERY DAY 90 Capsule 5 10/11/2023 10/10/2024 Active Losartan Potassium 50 MG Oral Tablet (Cozaar) Take 1 Tablet by mouth in the morning. 30 Tablet 5 11/11/2023 Active predniSONE 5 MG Oral Tablet (Deltasone)Indicati ons:PMR (polymyalgia rheumatica) (HCC) Take 1 Tablet by mouth in the morning. 90 Tablet 3 11/29/2023 Active Metoprolol Succinate ER 25 MG Oral Tablet Extended Release 24 Hour (toPROL XL)Indications:Paro xysmal atrial fibrillation (HCC),Cardiac pacemaker in situ,SSS (sick sinus syndrome) (HCC),RBBB (right bundle branch block),HTN, goal below 140/90 Take 1 Tablet by mouth in the morning and 1 Tablet before bedtime. 180 Tablet 3 04/01/2024 Active Additional Information Patient taking differently:25 mg Oral BID (.AM/PM),Taking once daily., Reported on 05/01/2024 documented as of this encounter (statuses as of 05/29/2024) Active Problems Problem Noted Date Diagnosed Date [...] 11/30/2013 Lung nodule 10/30/2012 Overview: RLL. Stable [id number]. 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 Consider lulu 5y. 03/24- EGD-stage C0-M1 per [place] criteria. No dysplasia. REC LULU 03/2018 Other specified glaucoma Generalized osteoarthritis Irritable bowel syndrome documented as of this encounter (statuses as of 05/29/2024) Resolved Problems Problem Noted Date Diagnosed Date [...] Thoracic . 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 11/23 PFTs WNL 06/22 colonoscopy WNL. +int hemorrhoids, divertic. 12/20 fell on ice-UOC rec tendon repair knee 10/22 pt declined prostate screen Bradycardia 10/30/2012 01/07/2020 Dyslipidemia 10/05/2021 Rotator cuff injury 04/28/20 17 Overview: right documented as of this encounter (statuses as of 05/29/2024) Immunizations Name Administration Dates Next Due COVID-19 mRNA, LNP-s, No Pre serve, 2-Dose Series (Moderna) 11/19/2021,05/25/2021,12/09/2020,11/04 Covid-19, Mrna, Lnp-s, Pf, B ivalent, 30 [...] lent, No Preserve, IM 06/30/2016,07/25/2015 Seasonal Influenza, Split, I IV3, With Preserve, Inj 07/19/2014,07/10/2013,09/06/2012,08/24 Seasonal Influenza, Trivalen t, Adjuvanted, 65+ yrs 06/19/2019 TDAP (age 10 and older)(Boostrix) 06/30/2022, [...] Care Team (Late st Contact Info) Description 06/05/2024 3:15 PM EDT Office Visit Hematology/Oncology [facility] 200 [facility] [place] [address] Jesus Penaloza MD 200 [facility] [place] [address] 06/05/2024 3:45 PM EDT Immunization/Inject ion Hematology/Oncology Treatment, [place] [address] [facility] [address] [place] [phone] Fanta, Chair [address] [place] [address] 07/16/2024 9:00 AM EDT Pharmacy Pharmacy Hematology Oncology [facility] [address] [place] [address] [facility] [address] [place] [address] 11/06/2024 10:30 AM EST Office Visit Cardiology, [facility] 132 [facility] [place] [phone] Quyen Connolly CRNP 400 [facility] [place] [address] 11/15/2024 10:30 AM EST Office [address]umatology [address] [place] [address] Mario Dover PA-C [address] [employer] [place] [address] Health Maintenance Due Date Last Done Comments CKD PHOS USE SMARTSET 38166 1953 Adult Wellness Visit 11/26/2020 11/26/2019 Carrington's Esophagus Surveilance 04/03/2021 04/03/2018, 04/03/2018, 04/01/2015, Additional history exists *BISPHONATE OR OTHER ACCEPTABLE MEDICATION NEEDED FOR OSTEOPOROSIS (REFER TO SMARTSET #1146) 12/30/2023 *NEPHROLOGY 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 05/20/2024 Influenza Vaccine (FLU shot) (#1) 2024 06/15/2023, 06/16/2022, 06/16/2021, Additional history exists Albumin/Creatinine Ratio 07/29/2024 07/29/2023, 05/10 DXA Scan 11/10/2024 11/10/2022, 11/10/2022 Depression Screening 01/26/2025 01/27/2024 CKD HGB USE SMARTSET 56270 05/11/202505/11, 05/11/2024, 02/10/2024, Additional history exists DTaP,Tdap,and Td Vaccines (3 - Td or Tdap) 06/30/2032 06/30/2022, 10/30/2012 Pneumococcal Vaccine: 65+ Years Completed 07/25/2015, 10/10/2002 Zoster Vaccines Completed 09/26/2019, 06/10, 10/10/2009 VITAMIN D LEVEL ONCE IN A LIFETIME-USE SMARTSET# 17923 Completed 12/16/2023, 12/17/2022 COVID-19 Vaccine Completed 12/24/2023, , 02/24/2023, Additional history exists HPV (Gardasil) Vaccine Aged [...] Procedure Name Priority Date/Time Associated Diagnosis Comments EKG SCANNED RESULT 04/29/2024 documented in this encounter Results * EKG SCANNED RESULT (04/29/2024) 04/29/2024 No Physician Data Unknown EKG documented in this encounter Care Teams Staple Cutter Relationship Specialty Start Date End Date Amos Pastrana MD [address] [place] [address] PCP - General Family Medicine 04/28/24 documented as of this encounter
--- OUTSIDE RECORDS SUMMARY | 2024-10-05 12:36 | External Medical Summary | Summary of Care ---
Author Name Unknown Organization [facility] Address [address] [place] [address] Phone [phone] Care Team Providers Care Sand Mixer Machine Name Role Phone Amos Pastrana MD Primary Care Provider + Reason for Visit * Reason Comments Acute High BP readings for last week. High at Dr. Hemphill office last Tuesday. Has been checking BP at home since. Resumed Metoprolol BID last Tue. Encounter Details Date Type Department Care Team (Late st Contact Info) Description 06/12/2024 4:00 PM EDT Office Visit [facility] [address] [facility] [address] Amos Pastrana MD [address] [place] [address] HTN, goal below 150/90* Allergies Active Allergy Reactions Criticality Noted Date [...] as of this encounter (statuses as of 06/12/2024) Medications Medication Sig Dispensed Refills Start Date [...] once daily 90 Tablet 3 07/11/2023 Active Losartan Potassium 50 MG Oral Tablet (Cozaar) Take 1 Tablet by mouth in the morning. 30 Tablet 5 11/11/2023 Active predniSONE 5 MG Oral Tablet (Deltasone)Indicati ons:PMR (polymyalgia rheumatica) ([facility]) Take 1 Tablet by mouth in the morning. 90 Tablet 3 11/29/2023 Active Metoprolol Succinate ER 25 MG Oral Tablet Extended Release 24 Hour (toPROL XL)Indications:Paro xysmal atrial fibrillation ([facility]),Cardiac pacemaker in situ,SSS (sick sinus syndrome) ([facility]),RBBB (right bundle branch block),HTN, goal [...] Oral Capsule (Imbruvica)Indicati ons:CLL (chronic lymphocytic leukemia) ([facility]) TAKE 3 CAPSULES BY MOUTH IN THE MORNING. TAKE MEDICATION AT SAME TIME EVERY DAY 90 Capsule 5 06/07/2024 06/07/2025 Active hydroCHLOROthiazide 12.5 MG Oral CapsuleIndications: HTN, goal below 150/90 Take 1 Capsule by mouth in the morning. 30 Capsule 5 06/12/2024 Active documented as of this encounter (statuses as of 06/12/2024) Active Problems Problem Noted Date Diagnosed Date [...] 11/30/2013 Lung nodule 10/30/2012 Overview: RLL. Stable [id number]. 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 Consider lulu 5y. 03/24- EGD-stage C0-M1 per [place] criteria. No dysplasia. REC LULU 03/2018 Other specified glaucoma Generalized osteoarthritis Irritable bowel syndrome documented as of this encounter (statuses as of 06/12/2024) Resolved Problems Problem Noted Date Diagnosed Date [...] as of this encounter (statuses as of 06/12/2024) Immunizations Name Administration Dates Next Due COVID-19 mRNA, LNP-s, No Pre serve, 2-Dose Series (Moderna) 11/19/2021,05/25/2021,12/09/2020,11/04 Covid-19, Mrna, Lnp-s, Pf, B ivalent, 30 Mcg, IM, 12 yrs and above (Blend) 02/24/2023,07/01/2022 Pneumococcal Conjugate Vacc, 13 Valent (Prevnar) [...] Sign Reading Time Taken Comments Blood Pressure 152/90 06/12/2024 4:02 PM EDT Pulse 60 06/12/2024 4:02 PM EDT Temperature - - Respiratory Rate 16 06/12/2024 4:02 PM EDT Oxygen Saturation 96% 06/12/2024 4:02 PM EDT Inhaled Oxygen Concentration - - Weight - - Height - - Body Mass Index - - documented in this encounter Progress Notes * Amos Pastrana MD - 06/12/2024 4:37 PM EDT SUBJECTIVE: Marv Fragoso is a 88 year old male here for Acute (High BP readings for last week. High at office last Tuesday. Has been checking BP at home since. Resumed Metoprolol BID last Tue. ) . Here w/ for HTN lulu. Noted to be severely high, asymptomatic at heme onc OV. Checked BPs at home the last week 144-199/90-105. Restarted his metoprolol BID In the past year, HCTZ 25mg was stopped due to bump in Cr to 1.5 Had been on amlodipine 5mg, but that was stopped due to significant b/l LE Edema. Tolerating losartan & metoprolol Physical: BP 152/90 | Pulse 60 | Resp 16 | SpO2 96% General-No apparent Distress Head, Eyes, Ears, Nose, Throat--Normocephalic, atraumatic Neck-Supple Lymph-no lymphadenopathy Lungs-Clear to Auscultation bilaterally Cardiovascular--Regular rate & Rhythm, +s1, s2, no murmur Abdomen-soft, nontender, nondistended + bowel sounds Extremities--non pitting R>L ankle edema Neuro-alert & oriented x3 (I10) HTN, goal below 150/90 (primary encounter diagnosis) Plan: hydroCHLOROthiazide 12.5 MG Oral Capsule, BASIC METABOLIC PANEL Restart low dose HCTZ. Lulu BMP 1 mo. I'm ok with small bump in Cr. If >30% increase consider d/c, could consider amlodipine 2.5mg dose (not higher) vs joshua trial I spent a total of 30-39 minutes (exact time 35 mins) on the date of service in preparation, delivery, and documentation of the care provided to Marv Fragoso excluding any time spent in the performance of separately billed services or time spent by another provider/QHP. (This note was completed using the dictation program Fluency Direct. As such, there may be misspellings, word substitutions, or other variations that should not change the essence of the clinical content of this encounter note.If there is need for further clarification, please direct questions to the provider listed above.) Amos Pastrana MD documented in this encounter Nursing Notes * Gloria Santamaria LPN - 06/12/2024 4:02 PM EDT The patient has been properly identified by confirmation of name and date of . Chief Complaint Patient presents with Acute High BP readings for last week. High at Dr. Hemphill office last Tuesday. Has been checking BP at home since. Resumed Metoprolol BID last Tue. documented in this encounter Plan of Treatment Upcoming Encounters Date Type Department Care Team (Late st Contact Info) Description 07/03/2024 3:45 PM EDT Immunization/Injecti on Hematology/Oncology Treatment, [place] [address] [place] [phone] Fanta, Chair 7 Hem Onc Sc[address] [place] [address] 07/12/2024 2:40 PM EDT Office Visit Family Practice [facility] [address] [place] [address] Mansi Busch CRNP 132 [facility] [place] [address] 07/16/2024 9:00 AM EDT Pharmacy Pharmacy Hematology Oncology [place] [address] [place] [address] [facility] Hem/Onc [address] [place] [address] 11/06/2024 10:30 AM EST Office Visit Cardiology, [facility] 132 [facility] [place] [address] Quyen Connolly CRNP [address] [facility] [place] [address] 11/15/2024 10:30 AM EST Office Visit Rheumatology [address] [place], [place] [address] Mario Dover PA-C [address] [place], [place] [address] 12/04/2024 2:00 PM EST Laboratory Laboratory [facility] [address] [place] [phone] [facility] 200 [facility] [place], [place] [address] 12/11/2024 1:45 PM EST Office Visit Hematology/Oncology [facility] [address] [place], [place] [address] Jesus Penaloza MD [address] [place], [place] [address] Scheduled Orders Name Type Priority Associated Diagnoses Orde r Schedule BASIC METABOLIC PANEL Lab Routine HTN, goal below 150/90 Expected: 07/12/2024 (Approximate), Expires: 06/12/2025 Health Maintenance Due Date Last Done Comments CKD PHOS USE SMARTSET 97189 1953 Adult Wellness Visit 11/26/2020 11/26/2019 Carrington's [...] Screening 01/26/2025 01/27/2024 CKD HGB USE SMARTSET 51589 05/11/202505/11, 05/11/2024, 02/10/2024, Additional history exists DTap/Tdap Vaccines (3 - Td or Tdap) 06/30/2032 06/30/2022, 10/30/2012 Pneumococcal Vaccine: 65+ Years Completed 07/25/2015, 10/10/2002 Zoster Vaccines Completed 09/26/2019, 06/10, 10/10/2009 VITAMIN D LEVEL ONCE IN A LIFETIME-USE SMARTSET# 24772 Completed 12/16/2023, 12/17/2022 COVID-19 Vaccine Completed 12/24/2023, [...] encounter Visit Diagnoses Diagnosis HTN, goal below 150/90- Primary documented in this encounter Care Teams Sand Mixer Machine Relationship Specialty Start Date End Date Amos Pastrana MD [address] [place] [address] PCP - General Family Medicine 04/28/24 documented as of this encounter
--- OUTSIDE RECORDS SUMMARY | 2024-10-05 12:36 | External Medical Summary | Summary of Care ---
Author Name Unknown Organization [facility] Address [address] [place] [address] Phone [phone] Care Team Providers Care Therapist Speech Name Role Phone Amos Pastrana MD Primary Care Provider + Reason for Visit * Reason Comments Medication Refill Encounter Details Date Type Department Care Team (Late st Contact Info) Description 06/07/2024 Refill Hematology/Oncology [facility] 200 [facility] [place] [phone] Deejay Penaloza MD 200 [place] [address] CLL (chronic lymphocytic leukemia) (HCC) Allergies Active Allergy Reactions Criticality Noted Date [...] as of this encounter (statuses as of 06/07/2024) Medications Medication Sig Dispensed Refills Start Date [...] MG Oral Tablet (Deltasone)Indica tions:PMR (polymyalgia rheumatica) ([facility]) Take 1 Tablet by mouth in the morning. 90 Tablet 3 11/29/2023 Active Metoprolol Succinate ER 25 MG Oral Tablet Extended Release 24 Hour (toPROL XL)Indications:Pa roxysmal atrial fibrillation ([facility]),Cardiac pacemaker in situ,SSS (sick sinus syndrome) ([facility]),RBBB (right bundle branch block),HTN, goal below 140/90 Take 1 Tablet by mouth in the morning and 1 Tablet before bedtime. 180 Tablet 3 04/01/2024 Active Additional Information Patient taking differently:25 mg Oral BID (.AM/PM),Taking once daily., Reported on 05/01/2024 Omeprazole 40 MG Oral Capsule Delayed Release (PriLOSEC)Indicat ions:Carrington's esophagus Take 1 Capsule by mouth in the morning and 1 Capsule before bedtime. 180 Capsule 2 05/07/2024 Active Ibrutinib 140 MG Oral Capsule (Imbruvica)Indica tions:CLL (chronic lymphocytic leukemia) ([facility]) TAKE 3 CAPSULES BY MOUTH IN THE MORNING. TAKE MEDICATION AT SAME TIME EVERY DAY 90 Capsule 5 06/07/2024 5 Active Ibrutinib 140 MG Oral Capsule (Imbruvica)Indica tions:CLL (chronic lymphocytic leukemia) ([facility]) TAKE 3 CAPSULES BY MOUTH IN THE MORNING. TAKE MEDICATION AT SAME TIME EVERY DAY 90 Capsule 5 10/11/2023 4 Discontinue d(Refill) documented as of this encounter (statuses as of 06/07/2024) Active Problems Problem Noted Date Diagnosed Date [...] 11/30/2013 Lung nodule 10/30/2012 Overview: RLL. Stable [id number]. 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 Consider lulu 5y. 03/24- EGD-stage C0-M1 per [place] criteria. No dysplasia. REC LULU 03/2018 Other specified glaucoma Generalized osteoarthritis Irritable bowel syndrome documented as of this encounter (statuses as of 06/07/2024) Resolved Problems Problem Noted Date Diagnosed Date [...] . 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 11/23 PFTs WNL 06/22 colonoscopy WNL. +int hemorrhoids, divertic. 12/20 fell on ice-UOC rec tendon repair knee 10/22 pt declined prostate screen Bradycardia 10/30/2012 01/07/2020 Dyslipidemia 10/05/2021 Rotator cuff injury 04/28/20 Overview: right documented as of this encounter (statuses as of 06/07/2024) Immunizations Name Administration Dates Next Due COVID-19 [...] encounter Miscellaneous Notes * Telephone Encounter - Adeline Villasenor [facility] - 06/07/2024 2:17 PM EDT Signed Prescriptions: Disp Refills Ibrutinib 140 MG Oral Capsule (Imbruvica) 90 Cap*5 Sig: TAKE 3 CAPSULES BY MOUTH IN THE MORNING. TAKE MEDICATION AT SAME TIME EVERY DAYAuthorizing Provider: DEEJAY PENALOZA AOrting User: ADELINE VILLASENOR * Telephone Encounter - Adeline Villasenor RP - 06/07/2024 2:17 PM EDT Refill Request EPIC Note Clinical Pharmacy Service (Hematology/Oncology): Refill Request(s) PHYSICIAN ACTION: No Assessment & Plan After reviewing the parameters in order to refill the patient's medication(s), the following was determined: The medication(s), ibrutinib, was refilled and no parameters need to be addressed No communication to requesting entity necessary Refill Parameters The following parameters were assessed in order to decide whether or not this refill was appropriate: Refill Parameter Comments If the patient was seen in the last 6 months (12 months for MPN patients) Yes - 06/05/24 If the labs were completed per prescribing information recommendations or provider recommendations Yes - 05/11/24 If the labs were within normal limits or stable at baseline yes If the dose was correct and/or if the prescription sig reflects the current prescribed dose yes If there were any new drug interactions with the patient's oral chemotherapy no If there were any care gaps/baseline labs that need to be addressed no Adeline Villasenor [facility] Ambulatory Clinical Pharmacist | Oral Chemotherapy Clinic [facility] 06/07/2024, 2:17 PM documented in this encounter Plan of Treatment Upcoming Encounters Date Type Department Care Team (Late st Contact Info) Description 07/03/2024 3:45 PM EDT Immunization/Injecti on Hematology/Oncology Treatment, [place] [facility] [address] [place], Chair 7 Hem Onc [address] [address] 07/16/2024 9:00 AM EDT Pharmacy Pharmacy Hematology Oncology [facility] [address] [place] [address] [facility], [facility] Hem/Onc [address] [place] [address] 11/06/2024 10:30 AM EST Office Visit Cardiology, [facility] [address] [facility] [place] [address] Quyen Connolly CRNP [address] [facility] [place] [address] 11/15/2024 10:30 AM EST Office Visit Rheumatology [facility] [address] [place] [address] Mario Dover PA-C [address] [place] [address] 12/04/2024 2:00 PM EST Laboratory Laboratory [facility] [address] [place] [phone] [place], [facility] 200 [facility] [place] [address] 12/11/2024 1:45 PM EST Office Visit Hematology/Oncology [facility] [address] [place] [phone] Deejay Penaloza MD [address] [place] [address] Health Maintenance Due Date Last Done Comments CKD PHOS USE SMARTSET 39708 1953 Adult Wellness Visit 11/26/2020 11/26/2019 Carrington's [...] Screening 01/26/2025 01/27/2024 CKD HGB USE SMARTSET 38925 05/11/202505/11, 05/11/2024, 02/10/2024, Additional history exists DTap/Tdap Vaccines (3 - Td or Tdap) 06/30/2032 06/30/2022, 10/30/2012 Pneumococcal Vaccine: 65+ Years Completed 07/25/2015, 10/10/2002 Zoster Vaccines Completed 09/26/2019, 06/10, 10/10/2009 VITAMIN D LEVEL ONCE IN A LIFETIME-USE SMARTSET# [id number] Completed 12/16/2023, 12/17/2022 COVID-19 Vaccine Completed 12/24/2023, [...] remission documented in this encounter Care Teams Therapist Speech Relationship Specialty Start Date End Date Amos Pastrana MD [address] [place] [address] PCP - General Family Medicine 04/28/24 documented as of this encounter
--- OUTSIDE RECORDS SUMMARY | 2024-10-05 12:36 | External Medical Summary | Summary of Care ---
Author Name Unknown Organization [facility] Address [address] [place] [address] Phone [phone] Care Team Providers Care Timber Appraiser Name Role Phone Amos Pastrana MD Primary Care Provider + Encounter Details Date Type Department Care Team (Late st Contact Info) Description 05/29/2024 Orders Only Cardiology, [place] [address] [facility] [place] [address] Lianna Keenan [place], [address] [place] [address] Allergies Active Allergy Reactions Criticality Noted Date [...] Tablet (Lipitor)Indicatio ns:Dyslipidemia, goal LDL below 100 take 1 tablet by mouth once daily 90 Tablet 3 07/11/2023 Active Ibrutinib 140 MG Oral Capsule (Imbruvica)Indicat ions:CLL (chronic lymphocytic leukemia) ([facility]) TAKE 3 CAPSULES BY MOUTH IN THE MORNING. TAKE MEDICATION AT SAME TIME EVERY DAY 90 Capsule 5 10/11/2023 10/10/2024 Active Losartan Potassium 50 MG Oral Tablet (Cozaar) Take 1 Tablet by mouth in the morning. 30 Tablet 5 11/11/2023 Active predniSONE 5 MG Oral Tablet (Deltasone)Indicat ions:PMR (polymyalgia rheumatica) ([facility]) Take 1 Tablet by mouth in the morning. 90 Tablet 3 11/29/2023 Active Metoprolol Succinate ER 25 MG Oral Tablet Extended Release 24 Hour (toPROL XL)Indications:Par oxysmal atrial fibrillation ([facility]),Cardiac pacemaker in situ,SSS (sick sinus syndrome) ([facility]),RBBB (right bundle branch block),HTN, goal below [...] before bedtime. 180 Capsule 2 05/07/2024 Active documented as of this encounter (statuses [...] 11/30/2013 Lung nodule 10/30/2012 Overview: RLL. Stable [id number]. 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 Consider lulu 5y. 03/24- EGD-stage C0-M1 per [place] criteria. No dysplasia. REC LULU 03/2018 Other [...] [facility] 6[facility] 2016- Living [place] [...] No 10/18/2023 Does the household have a [facility] source of income? (Household - for ages [...] 06/05/2024 3:15 PM EDT Office [facility] [place] [address] [address] [place] [address] Jesus Penaloza MD [address] [place] [address] [place] [address] 06/05/2024 3:45 PM EDT Immunization/Inject ion Hematology/Oncology Treatment, [place] 200 [facility] [place] [address] Fanta, Chair 7 Hem Onc [place] [address] [place] [address] 07/16/2024 9:00 AM EDT Pharmacy Pharmacy Hematology Oncology [address] [phone] [facility] [place], [facility] Hem/Onc [address] [place] [address] 11/06/2024 10:30 AM EST Office Visit Cardiology, [facility] [address] [place] [address] Quyen Connolly CRNP [address] [place] [address] 11/15/2024 10:30 AM EST Office Visit Rheumatology [facility] [address] [place] [address] Mario Dover PA-C [address] [place] [address] Health Maintenance Due Date Last Done Comments CKD PHOS USE SMARTSET 28839 1953 Adult Wellness Visit 11/26/2020 11/26/2019 Carrington's [...] Screening 01/26/2025 01/27/2024 CKD HGB USE SMARTSET 59357 05/11/202505/11, 05/11/2024, 02/10/2024, Additional history exists DTaP,Tdap,and Td Vaccines (3 - Td or Tdap) 06/30/2032 06/30/2022, 10/30/2012 Pneumococcal Vaccine: 65+ Years Completed 07/25/2015, 10/10/2002 Zoster Vaccines Completed 09/26/2019, 06/10, 10/10/2009 VITAMIN D LEVEL ONCE IN A LIFETIME-USE SMARTSET# [id number] Completed 12/16/2023, 12/17/2022 COVID-19 Vaccine Completed 12/24/2023, [...] Procedure Name Priority Date/Time Associated Diagnosis Comments XR CHEST 1 VIEW Routine 04/29/2024 documented in this encounter Results * XR CHEST 1 VIEW (04/29/2024) Anatomical Region Laterality Modality Chest Other 04/29/2024 [facility] (RAD GENER AL) documented in this encounter Care Teams Timber Appraiser Relationship Specialty Start Date End Date Amos Pastrana MD [address] [place] [address] PCP - General Family Medicine 04/28/24 documented as of this encounter
--- OUTSIDE RECORDS SUMMARY | 2024-10-05 12:36 | External Medical Summary | Summary of Care ---
Author Name Unknown Organization [facility] Address [address] [place] [address] Phone [phone] Care Team Providers Care Project Mgr Name Role Phone Amos Pastrana MD Primary Care Provider + Reason for Visit * Reason Comments Outpatient Testing Encounter Details Date Type Department Care Team (Late st Contact Info) Description 06/28/2024 11:40 AM EDT Laboratory Laboratory [facility] [address] [place] [phone] [facility] Lab [facility] [address] [place] [address] Other specified hypotension Allergies Active Allergy Reactions Criticality Noted Date [...] as of this encounter (statuses as of 06/28/2024) Medications Medication Sig Dispensed Refills Start Date [...] as of this encounter (statuses as of 06/28/2024) Active Problems Problem Noted Date Diagnosed Date [...] 11/30/2013 Lung nodule 10/30/2012 Overview: RLL. Stable [id number]. 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 Consider lulu 5y. 03/24- EGD-stage C0-M1 per [place] criteria. No dysplasia. REC LULU 03/2018 Other specified glaucoma Generalized osteoarthritis Irritable bowel syndrome documented as of this encounter (statuses as of 06/28/2024) Resolved Problems Problem Noted Date Diagnosed Date [...] Thoracic . 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 11/23 PFTs WNL 06/22 colonoscopy WNL. +int hemorrhoids, divertic. 12/20 fell on ice-UOC rec tendon repair knee 10/22 pt declined prostate screen Bradycardia 10/30/2012 01/07/2020 Dyslipidemia 10/05/2021 Rotator cuff injury 04/28/20 Overview: right documented as of this encounter (statuses as of 06/28/2024) Immunizations Name Administration Dates Next Due COVID-19 mRNA, LNP-s, No Pre serve, 2-Dose Series (Moderna) 11/19/2021,05/25/2021,12/09/2020,11/04 COVID-19, MRNA-LNP, 23-24, P F, 30 MCG/0.3 mL, 12 YRS AND ABOVE, IM ([employer]Comirnat[employer]) 07/02/2023 COVID-19, MRNA-LNP, 23-24, P F, 50 [...] 3:45 PM EDT Immunization/Injecti on Hematology/Oncology Treatment, [place] [address] [place] [address] Fanta, Chair 7 Hem Onc [address] [place] [address] 07/12/2024 2:40 PM EDT Office Visit Family Practice [facility] 132 [facility] [place] [address] Mansi Busch CRNP 132 [facility] [place] [address] 07/16/2024 9:00 AM EDT Pharmacy Pharmacy Hematology Oncology [facility] [address] [place] [address] [facility], [facility] Hem/Onc [address] [place] [address] 11/06/2024 10:30 AM EST Office Visit Cardiology, [facility] 132 [facility] [place] [address] Quyen Connolly CRNP [address] [place], [place] [phone] 11/15/2024 10:30 AM EST Office Visit Rheumatology [facility] [address] [place] [address] Mario Dover PA-C [address] [place] [address] 12/04/2024 2:00 PM EST Laboratory Laboratory [facility] [place] [address] [place] [phone] [place], Lab [address]en[address] [place] [address] 12/11/2024 1:45 PM EST Office Visit Hematology/Oncology Soledad Jewell [place] 200 [facility] [place] [address] Jesus Penaloza MD 200 [facility] [place] [address] Pending Results Name Type Priority Associated Diagnoses Date /Time CBC Lab Routine Other specified hypotension 06/28/2024 11:36 AM EDT COMPREHENSIVE METABOLIC PANEL Lab Routine Other specified hypotension 06/28/2024 11:36 AM EDT Health Maintenance Due Date Last Done Comments CKD PHOS USE SMARTSET 25058 1953 Adult Wellness Visit 11/26/2020 11/26/2019 Carrington's Esophagus Surveilance 04/03/2021 04/03/2018, 04/03/2018, 04/01/2015, Additional history exists *BISPHONATE OR OTHER ACCEPTABLE MEDICATION NEEDED FOR OSTEOPOROSIS (REFER TO SMARTSET #1146) 12/30/2023 *NEPHROLOGY 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 05/20/2024 Albumin/Creatinine Ratio 07/29/2024 07/29/2023, 05/10 DXA Scan 11/10/2024 11/10/2022, 11/10/2022 Depression Screening 01/26/2025 01/27/2024 CKD HGB USE SMARTSET 61584 05/11/202505/11, 05/11/2024, 02/10/2024, Additional history exists DTap/Tdap Vaccines (3 - Td or Tdap) 06/30/2032 06/30/2022, 10/30/2012 Pneumococcal Vaccine: 65+ Years Completed 07/25/2015, 10/10/2002 Zoster Vaccines Completed 09/26/2019, 06/10, 10/10/2009 VITAMIN D LEVEL ONCE IN A LIFETIME-USE SMARTSET# [id number] Completed 12/16/2023, 12/17/2022 COVID-19 Vaccine Completed 06/12/2024, [...] as of this encounter Visit Diagnoses Diagnosis Other specified hypotension documented in this encounter Care Teams Project Mgr Relationship Specialty Start Date End Date Amos Pastrana MD [address] [place] [address] PCP - General Family Medicine 04/28/24 documented as of this encounter
--- OUTSIDE RECORDS SUMMARY | 2024-10-05 12:36 | External Medical Summary | Summary of Care ---
Author Name Unknown Organization [facility] Address [address] [place] [address] Phone [phone] Care Team Providers Care Deputy Insurance Commissioner Name Role Phone Amos Pastrana MD Primary Care Provider + Encounter Details Date Type Department Care Team (Late st Contact Info) Description 06/29/2024 Result Scan Unspecified Department Lianna Keenan China, DO [address] [place], [place] [phone] <No scans attached> Allergies Active Allergy Reactions [...] MG Oral Tablet (Deltasone)Indicati ons:PMR (polymyalgia rheumatica) ([facility]) Take 1 Tablet by mouth in the morning. 90 Tablet 3 11/29/2023 Active Metoprolol Succinate ER 25 MG Oral Tablet Extended Release 24 Hour (toPROL XL)Indications:Paro xysmal atrial fibrillation ([facility]),Cardiac pacemaker in situ,SSS (sick sinus syndrome) ([facility]),RBBB (right bundle branch block),HTN, goal [...] Oral Capsule (Imbruvica)Indicati ons:CLL (chronic lymphocytic leukemia) ([facility]) TAKE 3 CAPSULES BY MOUTH [...] 11/30/2013 Lung nodule 10/30/2012 Overview: RLL. Stable [id number]. 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 Consider lulu 5y. 03/24- EGD-stage C0-M1 per [place] criteria. No dysplasia. REC LULU 03/2018 Other [...] No 10/18/2023 Does the household have a [facility] source [facility]? (Household - for ages [...] 3:45 PM EDT Immunization/Injecti on Hematology/Oncology Treatment, [place] [address] [place], [place] [address] Fanta, Chair 7 Hem Onc [facility] 200 [facility] [place] [address] 07/12/2024 2:40 PM EDT Office Visit Family [facility] [place] [address] Mansi Busch CRNP 132 [facility] [place] [address] 07/16/2024 9:00 AM EDT Pharmacy Pharmacy Hematology Oncology [facility] [address] [place] [address] [facility] Hem[facility]Onc [address] [place] [address] 11/06/2024 10:30 AM EST Office Visit Cardiology, [facility] 132 [facility] [place] [address] Quyen Connolly CRNP [address] [place] [address] 11/15/2024 10:30 AM EST Office Visit Rheumatology [place] [phone] [facility] [place], [place] [address] Mario Dover PA-C [facility] [place] [address] 12/04/2024 2:00 PM EST Laboratory Laboratory [facility] [place] [address] [place] [phone] Fanta Lab Scene [address] [place] [address] 12/11/2024 1:45 PM EST Office Visit Hematology/Oncology Soledad Jew[place] [address] [place] [address] Jesus Penaloza MD 200 [facility] [place] [address] Health Maintenance Due Date Last Done Comments CKD PHOS USE SMARTSET 18717 1953 Adult Wellness Visit 11/26/2020 11/26/2019 Carrington's Esophagus Surveilance 04/03/2021 04/03/2018, 04/03/2018, 04/01/2015, Additional history exists *BISPHONATE OR OTHER ACCEPTABLE MEDICATION NEEDED FOR OSTEOPOROSIS (REFER TO SMARTSET #1146) 12/30/2023 *NEPHROLOGY 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 05/20/2024 Albumin/Creatinine Ratio 07/29/2024 07/29/2023, 05/10 DXA Scan 11/10/2024 11/10/2022, 11/10/2022 Depression Screening 01/26/2025 01/27/2024 CKD HGB USE SMARTSET 64564 06/28/202506/28, 05/11/2024, 05/11/2024, Additional history exists DTap/Tdap Vaccines (3 - Td or Tdap) 06/30/2032 06/30/2022, 10/30/2012 Pneumococcal Vaccine: 65+ Years Completed 07/25/2015, 10/10/2002 Zoster Vaccines Completed 09/26/2019, 06/10, 10/10/2009 VITAMIN D LEVEL ONCE IN A LIFETIME-USE SMARTSET# [id number] Completed 12/16/2023, 12/17/2022 COVID-19 Vaccine Completed 06/12/2024, [...] Date/Time Associated Diagnosis Comments CARDIOLOGY SCANNED RESULT 06/29/2024 documented in this encounter Results * CARDIOLOGY SCANNED RESULT (06/29/2024) 06/29/2024 Lianna Keenan DO OTHER documented in this encounter Care Teams Deputy Insurance Commissioner Relationship Specialty Start Date End Date Amos Pastrana MD [address] [place] [address] PCP - General Family Medicine 04/28/24 documented as of this encounter
--- OUTSIDE RECORDS SUMMARY | 2024-10-05 12:36 | External Medical Summary | Summary of Care ---
Author Name Unknown Organization [facility] Address [address] [place] [address] Phone [phone] Care Team Providers Care Development Manager Name Role Phone Amos Lopez MD Primary Care Provider + Reason for Visit * Reason Comments eRx-Medication Refill Encounter Details Date Type Department Care Team (Late st Contact Info) Description 06/22/2024 Refill Family Practice [facility] [address] [place] [address] Amos Lopez MD [address] [place] [address] Routine medical exam*; Dyslipidemia, goal LDL below 100; Dyslipidemia; Chronic kidney disease, stage 3a (HCC); Encounter for long-term (current) use of medications [...] as of this encounter (statuses as of 06/27/2024) Medications Medication Sig Dispensed Refills Start Date [...] MG Oral Tablet (Deltasone)Indica tions:PMR (polymyalgia rheumatica) ([facility]) Take 1 Tablet by mouth in the morning. 90 Tablet 3 11/29/2023 Active Metoprolol Succinate ER 25 MG Oral Tablet Extended Release 24 Hour (toPROL XL)Indications:Pa roxysmal atrial fibrillation ([facility]),Cardiac pacemaker in situ,SSS (sick sinus syndrome) ([facility]),RBBB (right bundle branch block),HTN, [...] Oral Capsule (Imbruvica)Indica tions:CLL (chronic lymphocytic leukemia) ([facility]) TAKE 3 CAPSULES BY [...] MOUTH EVERY DAY 90 Tablet 2024 Active Atorvastatin Calcium 20 MG Oral Tablet (Lipitor)Indicati ons:Dyslipidemia, goal LDL below 100 take 1 tablet by mouth once daily 90 Tablet 3 07/11/2023 06/25/20 24 Discontinued documented as of this encounter (statuses as of 06/27/2024) Active Problems Problem Noted Date Diagnosed Date [...] 11/30/2013 Lung nodule 10/30/2012 Overview: RLL. Stable [id number]. 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 Consider lulu 5y. 03/24- EGD-stage C0-M1 per [place] criteria. No dysplasia. 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 11/23 PFTs WNL 06/22 colonoscopy WNL. +int hemorrhoids, divertic. 12/20 fell on ice-UOC rec tendon repair knee 10/22 pt declined prostate screen Bradycardia 10/30/2012 01/07/2020 Dyslipidemia 10/05/2021 Rotator cuff injury 04/28/20 Overview: right documented as of this encounter (statuses as of 06/27/2024) Immunizations Name Administration Dates Next Due COVID-19 [...] encounter Miscellaneous Notes * Telephone Encounter - Carmita Salas - 06/27/2024 12:30 AM EDT Received message from [facility] regarding patient needing labs. Patient was notified. Successfully contacted patient and provided [facility] message. * Telephone Encounter - Kailey Rocha [facility] - 2024 1:54 PM EDT Signed Prescriptions: Disp Refills Atorvastatin Calcium 20 MG Oral Tablet (Li*90 Tab*0 Sig: TAKE 1 TABLET BY MOUTH EVERY DAY Authorizing Provider: AMOS LOPEZ User: KAILEY ROCHA * Telephone Encounter - Kailey Rocha [facility] - 2024 1:51 PM EDT Provided 90 days supply with 0 refill(s) until upcoming appointment. Per refill protocol patient should have lipids on file within past year. Reviewed AMP report, Care Gaps/Health Maintenance, medications list, and for any routine labs typically ordered for this patient. Lab orders placed. Please contact patient to advise of labs ordered for blood draw AND URINE specimen (patient will have to be able to void to provide sample). Recommend patient to fast if able for labs. Patient may still have water and regular medications. Advise to obtain labs before requesting the next refill. Thank you, Kailey Rocha, PharmD Clinical Pharmacist [facility] ([facility]) 06/25/24 1:53 PM [phone] documented in this encounter Plan of Treatment Upcoming Encounters Date Type Department Care Team (Late st Contact Info) Description 07/03/2024 3:45 PM EDT Immunization/Injecti on Hematology/Oncology Treatment, [place] [address] [place] [address] [place], Chair [address] Hem Onc Scenery [address] [place] [address] 07/12/2024 2:40 PM EDT Office Visit Family Practice [facility] [address] [facility] [place] [address] Mansi Busch CRNP [address] [facility] [place] [address] 07/16/2024 9:00 AM EDT Pharmacy Pharmacy Hematology Oncology [facility] [address] [place] [address] [facility] Hem/Onc [address] [place] [address] 11/06/2024 10:30 AM EST Office Visit Cardiology, [facility] [address] [facility] [place] [address] Quyen Connolly CRNP [address] [facility] [place], [place] [phone] 11/15/2024 10:30 AM EST Office Visit Rheumatology [facility] [address] [place] [address] Mario Dover PA-C [address] [place] [address] 12/04/2024 2:00 PM EST Laboratory Laboratory [facility] [place] [address] [place] [address] [place], Lab Scenery [address] [facility] [place] [address] 12/11/2024 1:45 PM EST Office Visit Hematology/Oncology [facility] [place] [address] [facility] [place] [phone] Jesus Penaloza MD [address] [facility] [place] [address] Scheduled Orders Name Type Priority Associated Diagnoses Orde r Schedule PHOSPHORUS Lab Routine Routine medical exam Chronic kidney disease, stage 3a (HCC) Expected: 07/09/2024 (Approximate), Expires: 06/26/2025 LIPID PANEL WITH DIRECT LDL IF TG IS HIGH Lab Routine Dyslipidemia, goal LDL below 100 Routine medical exam Encounter for long-term (current) use of medications Expected: 07/09/2024 (Approximate), Expires: 06/26/2025 Health Maintenance Due Date Last Done Comments CKD PHOS USE SMARTSET 72653 1953 Adult Wellness Visit 11/26/2020 11/26/2019 Carrington's Esophagus Surveilance 04/03/2021 04/03/2018, 04/03/2018, 04/01/2015, Additional history exists *BISPHONATE OR OTHER ACCEPTABLE MEDICATION NEEDED FOR OSTEOPOROSIS (REFER TO SMARTSET #1146) 12/30/2023 *NEPHROLOGY 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 05/20/2024 Albumin/Creatinine Ratio 07/29/2024 07/29/2023, 05/10 DXA Scan 11/10/2024 11/10/2022, 11/10/2022 Depression Screening 01/26/2025 01/27/2024 CKD HGB USE SMARTSET 96873 05/11/202505/11, 05/11/2024, 02/10/2024, Additional history exists DTap/Tdap Vaccines (3 - Td or Tdap) 06/30/2032 06/30/2022, 10/30/2012 Pneumococcal Vaccine: 65+ Years Completed 07/25/2015, 10/10/2002 Zoster Vaccines Completed 09/26/2019, 06/10, 10/10/2009 VITAMIN D LEVEL ONCE IN A LIFETIME-USE SMARTSET# [id number] Completed 12/16/2023, 12/17/2022 COVID-19 Vaccine Completed 06/12/2024, [...] as of this encounter Visit Diagnoses Diagnosis Routine medical exam- Primary Routine general medical examination at a [facility] care facility Dyslipidemia, goal LDL below 100 Other and unspecified hyperlipidemia Dyslipidemia Other and unspecified hyperlipidemia Chronic kidney disease, stage 3a (HCC) Encounter for long-term (current) use of medications Encounter for long-term (current) use of other medications documented in this encounter Care Teams Development Manager Relationship Specialty Start Date End Date Amos Lopez MD [address] [place] [address] PCP - General Family Medicine 04/28/24 documented as of this encounter
--- OUTSIDE RECORDS SUMMARY | 2024-10-05 12:36 | External Medical Summary ---
Author Name Unknown Address Unknown Organization K09:[facility] [place] [address] Laboratory Report Ordering Provider Test Date Status OPAL SAMUELS 06/28/2024 11:36:20 Final Observation Date Value Abnormality Reference (Units ) Status WBC, Total 06/28/2024 11:36:20 12.76 Above high normal 4 .00-10.80 (K/uL) Final RBC 06/28/2024 11:36:20 4.22 4.50-5.25 (M/uL) Final Hemoglobin 06/28/2024 11:36:20 14.2 14.0-16.8 (g/dL) Final HCT 06/28/2024 11:36:20 41.5 40.0-48.4 (%) Final MCV 06/28/2024 11:36:20 98.3 82.0-99.5 (fL) Final MCH 06/28/2024 11:36:20 33.6 27.0-34.0 (pg) Final MCHC 06/28/2024 11:36:20 34.2 32.0-36.0 (g/dL) Final RDW 06/28/2024 11:36:20 14.0 11.5-15.5 (%) Final Platelets 06/28/2024 11:36:20 221 140-400 (K /uL) Final MPV 06/28/2024 11:36:20 10.3 6.6-11.1 ( fL) Final Performing Location [facility] [address]
--- OUTSIDE RECORDS SUMMARY | 2024-10-05 12:36 | External Medical Summary | Summary of Care ---
Author Name Unknown Organization [facility] Address [address] [place] [address] Phone [phone] Care Team Providers Care Gas Refrigerator Servicer Name Role Phone Amos Pastrana MD Primary Care Provider + Reason for Visit * Reason Comments Follow Up 6 month follow up Encounter Details Date Type Department Care Team (Late st Contact Info) Description 06/05/2024 3:15 PM EDT Office Visit Hematology/Oncology [facility] [address] [facility] [place] [phone] Jesus Penaloza MD [address] [place] [address] CLL (chronic lymphocytic leukemia) (HCC)*; Vitamin B12 deficiency (dietary) anemia Allergies Active Allergy Reactions Criticality Noted Date [...] as of this encounter (statuses as of 06/05/2024) Medications Medication Sig Dispensed Refills Start Date [...] Oral Capsule (Imbruvica)Indicat ions:CLL (chronic lymphocytic leukemia) ([facility]) TAKE 3 CAPSULES BY MOUTH IN THE MORNING. TAKE MEDICATION AT SAME TIME EVERY DAY 90 Capsule 5 10/11/2023 10/10/2024 Active Losartan Potassium 50 MG Oral Tablet (Cozaar) Take 1 Tablet by mouth in the morning. 30 Tablet 5 11/11/2023 Active predniSONE 5 MG Oral Tablet (Deltasone)Indicat ions:PMR (polymyalgia rheumatica) ([facility]) Take 1 Tablet by mouth in the morning. 90 Tablet 3 11/29/2023 Active Metoprolol Succinate ER 25 MG Oral Tablet Extended Release 24 Hour (toPROL XL)Indications:Par oxysmal atrial fibrillation ([facility]),Cardiac pacemaker in situ,SSS (sick sinus syndrome) ([facility]),RBBB (right bundle branch block),HTN, goal below 140/90 [...] as of this encounter (statuses as of 06/05/2024) Active Problems Problem Noted Date Diagnosed Date [...] 11/30/2013 Lung nodule 10/30/2012 Overview: RLL. Stable [id number]. Per pt since 70s Carirngton's esophagus 09/06/2012 Overview: 03/27 path Barretts no dysplasia. Consider lulu 5y. 03/24- EGD-stage C0-M1 per [place] criteria. No dysplasia. REC LULU 03/2018 Other specified glaucoma Generalized osteoarthritis Irritable bowel syndrome documented as of this encounter (statuses as of 06/05/2024) Resolved Problems Problem Noted Date Diagnosed Date [...] as of this encounter (statuses as of 06/05/2024) Immunizations Name Administration Dates Next Due COVID-19 [...] Sign Reading Time Taken Comments Blood Pressure 184/99 06/05/2024 3:08 PM EDT Pulse 65 06/05/2024 3:08 PM EDT Temperature 36.7 C (98 F) 06/05/2024 3:08 PM EDT Respiratory Rate - - Oxygen Saturation 93% 06/05/2024 3:08 PM EDT Inhaled Oxygen Concentration - - Weight 81.8 kg (180 lb 6.4 oz) 06/05/2024 3:08 P M EDT Height - - Body Mass Index 27.43 01/27/2024 12:30 PM EDT documented in this encounter Progress Notes * Jesus Penaloza MD - 06/05/2024 3:15 PM EDT NAME: Marv Fragoso :1935 88-year-old male, Transferred from Dr. Lyons's service. DIAGNOSIS: B-cell CLL (2016) CURRENT TREATMENT: - Ibrutinib started on 05/07/2020. DIAGNOSTIC WORKUP: He was noted to have lymphocytosis in peripheral blood and had had flow cytometry which showed CLL. Flow cytometric analysis of the peripheral blood indicates [...] not expressed by the B-cells (<20% expression). INTERVAL HISTORY: He has come to the clinic for the follow-up, accompanied by his in the office. Now since late April 2020 he is on ibrutinib, previously noted enlarged lymph nodes have gone down significantly in the neck region, overall tolerated the treatment without significant side effects, recently he underwent permanent pacemaker placement, he was then started on Eliquis, he had some significant local bleeding, currently he is not on Eliquis, has some increasing bruising in the extremities, No fever, no palpitation, not sweats, good appetite, stable weight around 180 lb, he receives Vitamin B12 injection every 4 weekly. Some mild constipation present. No blood in the stool. Past Medical History: Diagnosis Date Anal lesion [...] performed by Mikel Walsh MD at ENDOSCOPY [facility] COLONOSCOPY, DIAGNOSTIC (RECTUM) 01/25/2017 diverticulosis, repeat 10 yrs/[facility] EGD, FLEXIBLE, DIAGNOSTIC 04/01/2015 Barretts, HH, repeat 3 yrs/ESOPHAGOGASTRODUODENOSCOPY (EGD), FLEXIBLE, TRANSORAL, DIAGNOSTIC performed by Mikel Walsh MD at ENDOSCOPY [facility] EGD, FLEXIBLE, DIAGNOSTIC 04/03/2018 Barretts/ESOPHAGOGASTRODUODENOSCOPY (EGD), FLEXIBLE, TRANSORAL, DIAGNOSTIC performed by Mikel Walsh MD at ENDOSCOPY [facility] OTHER 1985 compound fracture REMOVAL OF APPENDIX age 7 REMOVAL OF TONSILS, UNDER AGE 14 age 9 REMOVAL OF TONSILS, UNDER AGE 14 REPAIR/GRAFT OF THIGH MUSCLE 12/20 Dr Taylor Quad tendon repair SMALL BOWEL ENDOSCOPY W/BX 10/18/08 bxs SMALL BOWEL ENDOSCOPY W/BX 11/26/11 Short segment Barretts, repeat EGD in 3 years Current Outpatient Medications Medication Sig Dispense Refill COMBIGAN 0.2-0.5 % OP SOLN Instill 1 Drop into the right eye in the morning and 1 Drop before bedtime. Centrum Adults Oral Tablet 1 tab daily 1 Tablet 0 Atorvastatin Calcium 20 MG Oral Tablet (Lipitor) take 1 tablet by mouth once daily 90 Tablet 3 Ibrutinib 140 MG Oral Capsule (Imbruvica) TAKE 3 CAPSULES BY MOUTH IN THE MORNING. TAKE MEDICATION AT SAME TIME EVERY DAY 90 Capsule 5 Losartan Potassium 50 MG Oral Tablet (Cozaar) Take 1 Tablet by mouth in the morning. 30 Tablet 5 predniSONE 5 MG Oral Tablet (Deltasone) Take 1 Tablet by mouth in the morning. 90 Tablet 3 Metoprolol Succinate ER 25 MG Oral Tablet Extended Release 24 Hour (toPROL XL) Take 1 Tablet by mouth in the morning and 1 Tablet before bedtime. (Patient taking differently: Take 1 Tablet by mouth in the morning and 1 Tablet before bedtime. Taking once daily..) 180 Tablet 3 Omeprazole 40 MG Oral Capsule Delayed Release (PriLOSEC) Take 1 Capsule by mouth in the morning and1 Capsule before bedtime. 180 Capsule 2 No current facility-administered medications for this visit. Family History Problem Relation Name Age of Onset Alcohol and Other Disorders Associated Father Marv Lung Disorder Father Marv large benign tumour Alcohol and Other Disorders Associated Brother Angelito Cancer Brother Angelito tongue. in 1977 Arthritis Mother Mary hands Gastro-intestinal disorder Mother Mary part of bowel removed Social History Socioeconomic History Marital status: Spouse name: Macie Number of children: 2 Years of education: Not on file Highest education level: Not on file Occupational History Occupation: retired Comment: [employer] Social Needs Financial resource strain: Not on file Food insecurity: Worry: Not on file Inability: Not on file Transportation needs: Medical: Not on file Non-medical: Not on file Tobacco Use Smoking status: Former Smoker Packs/day: 0.50 Years: 28.00 Pack years: 14.00 Types: Cigarettes Last attempt to quit: 09/22/1989 Years since quittin.6 Smokeless tobacco: Never Used Substance and Sexual Activity Alcohol use: Yes Alcohol/week: 3.5 oz Types: 7 1.5 oz of liquor per week Comment: Gin per day in [facility] Drug use: No Sexual activity: Yes Partners: Female Comment: , daughter in [facility]. 1 biol grandkids, 2step. Lifestyle Physical activity: Days per week: Not on file Minutes per session: Not on file Stress: Not on file Relationships Social connections: Talks on phone: Not on file Gets together: Not on file Attends worship service: Not on file Active member of club or organization: Not on file Attends meetings of clubs or organizations: Not on file Relationship status: Not on file Intimate partner violence: Fear of current or ex partner: Not on file Emotionally abused: Not on file Physically abused: Not on file Forced sexual activity: Not on file Other Topics Concern Service Not Asked Blood [...] Social History Narrative 2 step grandkids-[place] student, 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 On exam: BP 184/99 (BP Site: Left Arm, BP Position: Sitting, BP Cuff Size: Regular) | Pulse 65 | Temp 36.7 C (98 F) (Tympanic) | Wt 81.8 kg (180 lb 6.4 oz) | SpO2 93% | BMI 27.43 kg/m | BSA 1.98 m Constitutional: Patient is alert, cooperative and oriented x 3. Well built man, Patient is in no acute distress. HEENT:No icterus, no pallor, Throat and pharynx normal. Sinuses are non-tender. Neck: Previously be palpable lymph nodes are no longer palpable. Lungs: Clear to auscultation. Bilateral symmetric air entry. No wheezing or rhonchi. Cardiovascular: Normal heart sounds, no murmurs.Regular rate and rhythm. Abdomen: soft, nontender, no hepatomegaly, no splenomegaly. Bowel sounds are normal. Neurological: No gross focal neurological deficit; walks with a normal gait. Extremities: No finger clubbing, No cyanosis. No leg edema. Skin:: No skin rash. SPINE: No spinal or paraspinal tenderness. No palpable lymphadenopathy in the axilla. LABS: Blood workup done on 09/28/2021: -WBC 88098, H&H of 12.5/38.5, Platelet count 735264. , absolute lymphocyte count --> 4700. -BUN/Creat: 16/1.0, normal liver function test. -Uric acid --> 5.8, LDH --> 167. Blood workup done on 03/17/2022: - WBC 11,700, H&H of 7.7/36, Platelet count of 265,000 - ANC 5500, Absolute Lymphocyte count 4900 - BUN/Creat: 16/ 1.1, calcium 9.2, normal LFT - LDH --> 158, uric acid --> 5.3. Blood workup done on 04/22/2023: -WBC 02363, H&H of 12.4/37.4, Platelet count 817938. -BUN/Creat: 22/1.2, normal LFT -LDH --> 0.62, Uric acid --> 6.4 -ANC 7900, absolute lymphocyte count 4200. Blood workup done on 10/21/2023: -WBC 14,500, H&H of 12.2/37, Platelet count of 661289 - ANC 7700 -Absolute lymphocyte count --> 5300 -BUN/Creat: 25/1.5, Calcium 9.1, normal LFT - Uric acid --> 6.5 - LDH --> 180. Blood workup done on 05/11/2024: -WBC 13,600, Hemoglobin and hematocrit - 12.5/38.5, MCV 100.3, Platelet count of 536398. -ANC 8700, Absolute lymphocyte count 3600. -BUN/Creat: 16/1.1, Calcium 9.1, normal LFT -LDH --> 226, Uric acid--> 4.6 IMAGING: PET-CT scan (11/01/2018) - Bulky lymphadenopathy throughout the head and neck as well as in the pelvis with low level of FDGactivity. - Smaller lymph nodes within bilateral axilla, retroperitoneal and upper abdominal region. - Left inguinal hernia noted. CT chest (05/02/2019) - 4.7 cm ascending thoracic aortic aneurysm - Bilateral axillary and mediastinal lymphadenopathy (right paratracheal lymph node 1.4 cm, left axillary lymph ciera 1.4 cm. - Healing subacute style fracture noted. CT chest (05/12/2021 -4.9 cm ascending thoracic aneurysm - No lymphadenopathy in the chest. CT chest (04/21/2023) 1. Severe atherosclerotic disease of the aorta with stable appearing aneurysmal dilatation of the ascending thoracic aorta with a maximum transverse diameter of 4.9 cm, stable when compared to the prior study. Continued non emergent surveillance is recommended. 2. Findings of antecedent granulomatous disease. 3. Stable partially calcified pulmonary mass, suggestive of a hamartoma. Chest x-ray on 04/29/2024 at : -new patchy right perihilar airspace opacity favoring pneumonia -stable 2.1 cm right lower lobe lung nodule with calcification. ASSESSMENT AND PLAN: 88-year-old male, a case of B-cell CLL (diagnosed in 2016), was under observation, I reviewed his blood workup done today, mild increase in the WBC count and lymphocyte count noted in the blood workup done in February 2020, has mild anemia, he is on parenteral Vitamin B12 supplementation every 4 weekly,otherwise he is doing well, no B symptoms, has bulky lymphadenopathy in the head and neck region noted in the imaging studies as well on physical examination. Now since late April 2020 he is on ibrutinib, previously palpable lymph nodes have gone down significantly in the head and neck region as well as in the axilla. No tumor lysis noted. Now Absolute lymphocyte count around 3600 range. Mild anemia noted which is stable. Will continue ibrutinib as we planned earlier. He will continue Vitamin B12 injection every monthly. He will continue to have follow-up with [facility], have blood workup every 2 monthly. Planning to see him back in the clinic in about [address] Jesus Penaloza Hem/Onc (This note was completed using the dictation program Fluency Direct. As such, there may be misspellings, word substitutions, or other variations that should not change the essence of the clinical content of this encounter note. If there is need for further clarification, please direct questions to the provider listed above.) documented in this encounter Nursing Notes * Anaid Lima MED ASSIST - 06/05/2024 3:08 PM EDT Patient identifed by name and birthdate Do you have any concerns about pain management for today's visit? No Living Will or Advance Directive for Health Care as noted on the problem list. [facility] is a way you can talk to your provider on line through e-mail. Would you like to sign up? I can activate it for you? ALREADY ACTIVE Filed Vitals: 06/05/24 1508 BP: 184/99 Pulse: 65 Temp: 36.7 C (98 F) TempSrc: Tympanic SpO2: 93% Weight: 81.8 kg (180 lb 6.4 oz) Patient was instructed to not get up on the exam table/exam chair until directed and assisted by their provider; patient is to remain seated in the chair/ wheelchair/ exam table/ exam chair for fall prevention and safety reasons. Patient is aware to have assistance to step down off exam table/exam chair with personnel. Patient voiced full comprehension of instructions. documented in this encounter Plan of Treatment Upcoming Encounters Date Type Department Care Team (Late Contact Info) Description 07/03/2024 3:45 PM EDT Immunization/Inject ion Hematology/Oncology Treatment, [place] [address] [place] [address] [place], Chair 7 Hem Onc Scenery [address] [place] [address] 07/16/2024 9:00 AM EDT Pharmacy Pharmacy Hematology Oncology [facility] [address] [place] [address] [facility], [facility] Hem/Onc [address] [place] [address] 11/06/2024 10:30 AM EST Office Visit Cardiology, [facility] [address] [facility] [place] [address] Quyen Connolly CRNP [address] [facility] [place] [id number] 11/15/2024 10:30 AM EST Office Visit Rheumatology [facility] [address] [place] [address] Mario Dover PA-C [address] [place], [place] [address] Health Maintenance Due Date Last Done Comments CKD PHOS USE SMARTSET 55218 1953 Adult Wellness Visit 11/26/2020 11/26/2019 Carrington's [...] Screening 01/26/2025 01/27/2024 CKD HGB USE SMARTSET 79263 05/11/202505/11, 05/11/2024, 02/10/2024, Additional history exists DTap/Tdap Vaccines (3 - Td or Tdap) 06/30/2032 06/30/2022, 10/30/2012 Pneumococcal Vaccine: 65+ Years Completed 07/25/2015, 10/10/2002 Zoster Vaccines Completed 09/26/2019, 06/10, 10/10/2009 VITAMIN D LEVEL ONCE IN A LIFETIME-USE SMARTSET# [id number] Completed 12/16/2023, 12/17/2022 COVID-19 Vaccine Completed 12/24/2023, [...] leukemia, without mention of having achieved remission Vitamin B12 deficiency (dietary) anemia Other vitamin B12 deficiency anemia documented in this encounter Care Teams Gas Refrigerator Servicer Relationship Specialty Start Date End Date Amos Pastrana MD [address] [place] [address] PCP - General Family Medicine 04/28/24 documented as of this encounter
--- OUTSIDE RECORDS SUMMARY | 2024-10-05 12:36 | External Medical Summary | Summary of Care ---
Author Name Unknown Organization [facility] Address [address] [place] [address] Phone [phone] Care Team Providers Care Store Receiving Clerk Name Role Phone Amos Pastrana MD Primary Care Provider + Reason for Visit * Reason Comments Medication Administration Vitamin B12 Encounter Details Date Type Department Care Team (Late st Contact Info) Description 06/05/2024 3:45 PM EDT Immunization/I njection Hematology/Oncology Treatment, [address] [address] Fanta, Chair [address] [address] Vitamin B12 deficiency (dietary) anemia* Allergies Active [...] Oral Capsule (Imbruvica)Indicat ions:CLL (chronic lymphocytic leukemia) ([facility]) TAKE 3 CAPSULES BY MOUTH IN THE MORNING. TAKE MEDICATION AT SAME TIME EVERY DAY 90 Capsule 5 10/11/2023 10/10/2024 Active Losartan Potassium 50 MG Oral Tablet (Cozaar) Take 1 Tablet by mouth in the morning. 30 Tablet 5 11/11/2023 Active predniSONE 5 MG Oral Tablet (Deltasone)Indicat ions:PMR (polymyalgia rheumatica) ([facility]) Take 1 Tablet by mouth in the morning. 90 Tablet 3 11/29/2023 Active Metoprolol Succinate ER 25 MG Oral Tablet Extended Release 24 Hour (toPROL XL)Indications:Par oxysmal atrial fibrillation ([facility]),Cardiac pacemaker in situ,SSS (sick sinus syndrome) ([facility]),RBBB (right bundle branch block),HTN, goal below [...] 11/30/2013 Lung nodule 10/30/2012 Overview: RLL. Stable [id number]. 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 Consider lulu 5y. 03/24- EGD-stage C0-M1 per [place] criteria. No dysplasia. REC LULU 03/2018 Other [...] 01/11/2014 04/28/2017 Anal lesion 11/30/2013 04/28/2017 Overview: 2 refer surg eval Former smoker 10/15/2013 01/07/2020 Well adult exam 10/30/2012 07/29/2023 Overview: 05/31 normal EF. grad1 Galan. Mild-mod AR. Aortic diam 4.6cm per CT surg, ok to d/c monitoring '04/27 4.9cm ascending thoracic aorta, root 4.4cm. Refer Dr Winkler Thoracic . 10/28 4.6 thror aneurysm on [facility]--TTE orderd for 6mo 2016- Living [...] Nursing Notes * Madyson Arellano LPN - 06/05/2024 4:13 PM EDT 1530: Pt arrived for vitamin b12 injection. Administered in L deltoid. Pt tolerated well. To returnin 4 weeks. Discharged in stable condition. documented in this encounter Plan of Treatment Upcoming Encounters Date Type Department Care Team (Late st Contact Info) Description 07/03/2024 3:45 PM EDT Immunization/Inject ion Hematology/Oncology Treatment, [place] [address] [place] [address] Fanta, Chair 7 Hem Onc [facility] [address] 07/16/2024 9:00 AM EDT Pharmacy Pharmacy [facility] [place] [address] [place] [address] [facility] Hem[facility]Onc [address] [place] [address] 11/06/2024 10:30 AM EST Office Visit Cardiology, [facility] [address] [facility] [place] [address] Quyen Connolly CRNP [address] [facility] [place] [address] 11/15/2024 10:30 AM EST Office Visit Rheumatology [facility] [address] [place] [address] Mario Dover PA-C [address] [place] [address] Health Maintenance Due Date Last Done Comments CKD PHOS USE SMARTSET 81809 1953 Adult Wellness Visit 11/26/2020 11/26/2019 Carrington's [...] Screening 01/26/2025 01/27/2024 CKD HGB USE SMARTSET 77644 05/11/202505/11, 05/11/2024, 02/10/2024, Additional history exists DTap/Tdap Vaccines (3 - Td or Tdap) 06/30/2032 06/30/2022, 10/30/2012 Pneumococcal Vaccine: 65+ Years Completed 07/25/2015, 10/10/2002 Zoster Vaccines Completed 09/26/2019, 06/10, 10/10/2009 VITAMIN D LEVEL ONCE IN A LIFETIME-USE SMARTSET# [id number] Completed 12/16/2023, 12/17/2022 COVID-19 Vaccine Completed 12/24/2023, [...] MAR Action Action Date Dose Rate Site vitamin b-12 (Cyanocobalamin) inj 1,000 mcg 1,000 mcg, Intramuscular, ONCE, On Tue06/05/24 at 1600, For 1 dose Given 06/05/2024 3:23 PM EDT 1,000 mcg Deltoid Left Upper documented in this encounter Care Teams Store Receiving Clerk Relationship Specialty Start Date End Date Amos Pastrana MD [address] [place] [address] PCP - General Family Medicine 04/28/24 documented as of this encounter
--- OUTSIDE RECORDS SUMMARY | 2024-10-05 12:36 | External Medical Summary | Summary of Care ---
Author Name Unknown Organization [facility] Address [address] [place] [address] Phone [phone] Care Team Providers Care Bottling Room Worker Name Role Phone Amos Pastrana MD Primary Care Provider + Encounter Details Date Type Department Care Team (Late st Contact Info) Description 05/27/2024 Result Scan Unspecified Department Lianna Keenan China, DO [address] [place], [place] [phone] <No scans attached> Allergies Active Allergy Reactions [...] as of this encounter (statuses as of 05/27/2024) Medications Medication Sig Dispensed Refills Start Date [...] Oral Capsule (Imbruvica)Indicat ions:CLL (chronic lymphocytic leukemia) ([facility]) TAKE 3 CAPSULES BY MOUTH IN THE MORNING. TAKE MEDICATION AT SAME TIME EVERY DAY 90 Capsule 5 10/11/2023 10/10/2024 Active Losartan Potassium 50 MG Oral Tablet (Cozaar) Take 1 Tablet by mouth in the morning. 30 Tablet 5 11/11/2023 Active predniSONE 5 MG Oral Tablet (Deltasone)Indicat ions:PMR (polymyalgia rheumatica) ([facility]) Take 1 Tablet by mouth in the morning. 90 Tablet 3 11/29/2023 Active Metoprolol Succinate ER 25 MG Oral Tablet Extended Release 24 Hour (toPROL XL)Indications:Par oxysmal atrial fibrillation ([facility]),Cardiac pacemaker in [...] as of this encounter (statuses as of 05/27/2024) Active Problems Problem Noted Date Diagnosed Date [...] 11/30/2013 Lung nodule 10/30/2012 Overview: RLL. Stable [id number]. 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 Consider lulu 5y. 03/24- EGD-stage C0-M1 per [facility] criteria. No dysplasia. REC LULU 03/2018 Other specified glaucoma Generalized osteoarthritis Irritable bowel syndrome documented as of this encounter (statuses as of 05/27/2024) Resolved Problems Problem Noted Date Diagnosed Date [...] [facility]E [facility] for 6mo 2016- Living [place] copy on file 01/24 colon-WNL 01/22 ACC risk 24% declined statin. 11/23 PFTs WNL 06/22 colonoscopy WNL. +int hemorrhoids, divertic. 12/20 fell on ice-UOC rec tendon repair knee 10/22 pt declined prostate screen Bradycardia 10/30/2012 01/07/2020 Dyslipidemia 10/05/2021 Rotator cuff injury 04/28/20 Overview: right documented as of this encounter (statuses as of 05/27/2024) Immunizations Name Administration Dates Next Due COVID-19 [...] 06/05/2024 3:15 PM EDT Office Visit Hematology/Oncology [facility] [address] [place] [address] [phone] Jesus Penaloza MD [address] [place] [address] 06/05/2024 3:45 PM EDT Immunization/Inject ion Hematology/Oncology Treatment, [place] [address] [place] [phone] Fanta, Chair 7 Hem Onc [place] [address] [place] [address] [place] [address] 07/16/2024 9:00 AM EDT Pharmacy Pharmacy Hematology Oncology [address] [address] [facility], [facility] Hem[facility]Onc [facility] [place] [facility] [place] [address] 11/06/2024 10:30 AM EST Office Visit Cardiology, [facility] [address] [place] [address] Quyen Connolly CRNP [address] [place] [phone] 11/15/2024 10:30 AM EST Office Visit Rheumatology [facility] [address] [place] [address] Mario Dover PA-C [address] [place] [id number] Health Maintenance Due Date Last Done Comments CKD PHOS USE SMARTSET 53780 1953 Adult Wellness Visit 11/26/2020 11/26/2019 Carrington's [...] Screening 01/26/2025 01/27/2024 CKD HGB USE SMARTSET 08558 05/11/202505/11, 05/11/2024, 02/10/2024, Additional history exists DTaP,Tdap,and Td Vaccines (3 - Td or Tdap) 06/30/2032 06/30/2022, 10/30/2012 Pneumococcal Vaccine: 65+ Years Completed 07/25/2015, 10/10/2002 Zoster Vaccines Completed 09/26/2019, 06/10, 10/10/2009 VITAMIN D LEVEL ONCE IN A LIFETIME-USE SMARTSET# [id number] Completed 12/16/2023, 12/17/2022 COVID-19 Vaccine Completed 12/24/2023, [...] Date/Time Associated Diagnosis Comments CARDIOLOGY SCANNED RESULT 05/27/2024 documented in this encounter Results * CARDIOLOGY SCANNED RESULT (05/27/2024) 05/27/2024 Lianna Keenan DO OTHER documented in this encounter Care Teams Bottling Room Worker Relationship Specialty Start Date End Date Amos Pastrana MD [address] [place] [address] PCP - General Family Medicine 04/28/24 documented as of this encounter
--- OUTSIDE RECORDS SUMMARY | 2024-10-05 12:36 | External Medical Summary | Summary of Care ---
Author Name Unknown Organization [facility] Address [address] [place] [address] Phone [phone] Care Team Providers Care Extractor Operator Helper Name Role Phone Amos Pastrana MD Primary Care Provider + Encounter Details Date Type Department Care Team (Late st Contact Info) Description 06/26/2024 Orders Only Outcomes Research Department [address] [place] [address] Raissa Garza CHRA [employer] [facility] Other*[id number] Allergies Active Allergy Reactions Criticality Noted Date [...] as of this encounter (statuses as of 06/26/2024) Medications Medication Sig Dispensed Refills Start Date [...] MG Oral Tablet (Deltasone)Indicati ons:PMR (polymyalgia rheumatica) ([facility]) Take 1 Tablet by mouth in the morning. 90 Tablet 3 11/29/2023 Active Metoprolol Succinate ER 25 MG Oral Tablet Extended Release 24 Hour (toPROL XL)Indications:Paro xysmal atrial fibrillation ([facility]),Cardiac pacemaker in [...] Oral Capsule (Imbruvica)Indicati ons:CLL (chronic lymphocytic leukemia) ([facility]) TAKE [...] as of this encounter (statuses as of 06/26/2024) Active Problems Problem Noted Date Diagnosed Date [...] 11/30/2013 Lung nodule 10/30/2012 Overview: RLL. Stable [id number]. 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 Consider lulu 5y. 03/24- EGD-stage C0-M1 per [place] criteria. No dysplasia. REC LULU 03/2018 Other specified glaucoma Generalized osteoarthritis Irritable bowel syndrome documented as of this encounter (statuses as of 06/26/2024) Resolved Problems Problem Noted Date Diagnosed Date [...] 10/28 4.6 thror aneurysm on [facility]--TTE orderd for 6mo 2016- Living [place] copy on file 01/24 colon-WNL 01/22 ACC risk 24% declined statin. 11/23 PFTs WNL 06/22 colonoscopy WNL. +int hemorrhoids, divertic. 12/20 fell on ice-UOC rec tendon repair knee 10/22 pt declined prostate screen Bradycardia 10/30/2012 01/07/2020 Dyslipidemia 10/05/2021 Rotator cuff injury 04/28/20 Overview: right documented as of this encounter (statuses as of 06/26/2024) Immunizations Name Administration Dates Next Due COVID-19 [...] No 10/18/2023 Does the household have a [facility] source of income? (Household - [...] 3:45 PM EDT Immunization/Injecti on Hematology/Oncology Treatment, [place] [address] [place], [place] [address] Fanta, Chair 7 Hem Onc [address] [place] [address] 07/12/2024 2:40 PM EDT Office Visit Family [facility] [address] [facility] [place] [address] Mansi Busch CRNP [address] [facility] [place] [address] 07/16/2024 9:00 AM EDT Pharmacy Pharmacy Hematology Oncology [facility] [address] [place] [address] [facility] [place], [facility] Hem/Onc [address] [place] [address] 11/06/2024 10:30 AM EST Office Visit Cardiology, [facility] [address] [facility] [place] [address] Quyen Connolly CRNP [address] [facility] [place] [address] 11/15/2024 10:30 AM EST Office Visit Rheumatology [place] [address] [facility] [place] [address] Mario Dover PA-C [facility] [place] [address] 12/04/2024 2:00 PM EST Laboratory Laboratory [facility] [place] [address] [place] [address] Fanta, Lab [address]en[address] [facility] [place] [address] 12/11/2024 1:45 PM EST Office Visit Hematology/Oncology [facility] [place] [address] [place] [address] eJsus Penaloza MD [address] [facility] [address] Scheduled Orders Name Type Priority Associated Diagnoses Orde r Schedule MYCODE SUBSEQUENT ADULT Lab Routine [employer] Other*[id number] Every 6 Months for 2 Occurrences starting 06/26/2024 until 07/16/2025 Health Maintenance Due Date Last Done Comments CKD PHOS USE SMARTSET 84592 1953 Adult Wellness Visit 11/26/2020 11/26/2019 Carrington's Esophagus Surveilance 04/03/2021 04/03/2018, 04/03/2018, 04/01/2015, Additional history exists *BISPHONATE OR OTHER ACCEPTABLE MEDICATION NEEDED FOR OSTEOPOROSIS (REFER TO SMARTSET #1146) 12/30/2023 *NEPHROLOGY 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 05/20/2024 Albumin/Creatinine Ratio 07/29/2024 07/29/2023, 05/10 DXA Scan 11/10/2024 11/10/2022, 11/10/2022 Depression Screening 01/26/2025 01/27/2024 CKD HGB USE SMARTSET 28584 05/11/202505/11, 05/11/2024, 02/10/2024, Additional history exists DTap/Tdap Vaccines (3 - Td or Tdap) 06/30/2032 06/30/2022, 10/30/2012 Pneumococcal Vaccine: 65+ Years Completed 07/25/2015, 10/10/2002 Zoster Vaccines Completed 09/26/2019, 06/10, 10/10/2009 VITAMIN D LEVEL ONCE IN A LIFETIME-USE SMARTSET# 66536 Completed 12/16/2023, 12/17/2022 COVID-19 Vaccine Completed 06/12/2024, [...] as of this encounter Visit Diagnoses Diagnosis [employer] Other*[id number] documented in this encounter Care Teams Extractor Operator Helper Relationship Specialty Start Date End Date Amos Pastrana MD [address] [place] [address] PCP - General Family Medicine 04/28/24 documented as of this encounter
--- NOTE | 2024-10-05 12:37 | History & Physical Report ---
Date of Service October 05, 2024 Assessment & Plan (1) Syncope: Plan: Patient is 89 year old male with PMH HTN, dyslipidemia, CKD III, PMR on chronic prednisone, PAF anticoagulated on Eliquis, SSS s/p pacemaker 02/2024, RBBB, CLL on Imbruvica, Carrington's esophagus, IBS presented to ER with c/o syncope today after ambulating to bathroom and attempting to sit on toilet. In ER afebrile, BP: 92/74, P: 88, R: 16, 96% on RA. WBC: 15 (15.9 on 09/17/24, 16.9 on 09/11/24, 12. on 06/28/24) Hgb: 11 (11 on 09/11/24, 13.5 on 07/10/24) Initial troponin negative. UA: unremarkable CT Head: no acute intracranial abnormality CXR: no infiltrate In ER given 1L NSS with repeat BP 116/81. DDx: orthostatic hypotension, vasovagal syncope, arrhythmia, adrenal insuffiency Repeat troponin Monitor on telemetry Orthostatic vital signs Pacemaker interrogation Carotid Doppler Echo Per outpatient chart review 02/13/2024 echo: 60-64%, mild-moderate AR, moderate TR, mildly enlarged aortic root at 4.3cm, moderately enlarged ascending aorta at 4.9cm Gentle IVF Hold home HCTZ Obtain random cortisol level Fall precautions PT/OT eval CBC, BMP in a.m. (2) Edema of right foot: Plan: Recent history left hand swelling with normal uric acid level, negative LUE venous doppler and improved after increase from chronic prednisone 5mg daily to prednisone 20mg x 5 days ESR and CRP elevated Obtain uric acid DDx PMR flare, gout, pseudogout Obtain xray right foot to r/o fracture, crystals Obtain venous doppler to r/o DVT, however less likely as is on Eliquis Will increase chronic prednisone 5mg to 20mg daily. Patient likely will require a taper (3) PMR (polymyalgia rheumatica): Plan: On chronic prednisone 5mg daily As above will increase chronic prednisone 5mg to 20mg daily. Will likely require longer taper (4) SSS (sick sinus syndrome): Plan: S/P pacemaker Pacemaker interrogation (5) PAF (paroxysmal atrial fibrillation): Plan: Anticoagulated on Eliquis Rate controlled Continue metoprolol succinate with holding parameters Continue Eliquis (6) CLL (chronic lymphocytic leukemia): Plan: On Imbruvica Continue Imbruvica Follows with [facility] oncology (7) HTN (hypertension): Plan: Hypotension on ER arrival improved with IVF Hold home HCTZ (8) CKD (chronic kidney disease), stage III: Plan: Cr: 1.1. Baseline Cr: 1.2-1.3 Monitor renal functions, avoid nephrotoxic agents when possible (9) Dyslipidemia: Plan: Continue atorvastatin (10) Chronic anemia: Plan: History B12 deficiency. On monthly B12 injections Iron deficiency anemia. Recently started iron supplement. Continue home iron DVT Prophylaxis Anticoagulated on Eliquis Admit med/tele Full Code as per discussion with pt Follows with Dr Pastrana for routine care Pt was seen and care coordinated with Dr Orozco. See addendum I spent a total of 78 minutes reviewing notes, outpatient records, labs, medication, coordinating, documenting and providing care for this patient excluding time spent in the performance of separately billed services. History of Present Illness Chief Complaint: syncope Primary Care Provider: Amos Pastrana MD Patient is 89 year old male with PMH HTN, dyslipidemia, CKD III, PMR on chronic prednisone, PAF anticoagulated on Eliquis, SSS s/p pacemaker 02/2024, RBBB, CLL o n Imbruvica, Carrington's esophagus, IBS presented to ER with c/o syncope today. Per outpatient chart review end of July 2024 started with fatigue and on 08/08/24 seen at urgent care for erythema migrans rash to left posterior shoulder and was started on doxycycline x 10 day course. 08/10/24 saw PCP who prescribed additional 4 day course to complete 14 day course. He reports finished course and rash and fatigue seemed to improve. Patient states approximately 2 weeks ago started with nasal congestion and cough. Reports cough productive green. He was taking Mucinex, Tylenol, Robitussin and states he is overall improved and symptoms almost resolved and just has some mild linger cough. Denies any SOB or wheezing, fever/chills. States approximately 3 weeks ago started with left hand swelling. Denies any redness or warmth or any known injury. C/O pain to left wrist and entire right hand and hand swelling became very severe. 09/11/24: Uric acid WNL. On 09/27/24 seen at PCP office and started on prednisone 20mg daily x 5 days per chart review. 10/02/24 LUE venous doppler negative for DVT and negative for superficial thrombophlebitis. He states yesterday left hand swelling seemed to greatly decrease and hand is no longer painful. Today reports just trace left hand swelling. He is back on his chronic prednisone 5mg daily. Last night started with right foot swelling and discomfort. Denies erythema, warmth. Denies any known injury. Patient reports woke up several times in the night to urinate and when he ambulated he had pain to his right foot. Has chronic nocturia and denies any change. He states he does have some lightheaded sensation with standing up out of bed sometimes. States this morning woke up and ambulated to bathroom. He denies feeling dizzy/lightheaded at that time and denies CP, SOB, REYES, vision changes. He states was having pain to right foot with ambulating. He reports making it to the bathroom and he attempted to sit on the toilet when he "passed out". His found him sitting half on the toilet and half off. reports he passed out for approximately 30 seconds. reports patient had another syncopal episode while still in bathroom, it is unclear if patient was attempting to stand from toilet at that time. Patient denies falling to the floor. Patient states currently he feels "fine". Patient feels he has been eating and drinking normally as he usually does. States drinks 4-6 large glasses water daily, one cup of coffee. His family feels he could be drinking more water. Patient reports had syncopal episode prior to his pacemaker placement but none since 02/2024. Denies fever/chills, diaphoresis, N/V/D/C, REYES, vision changes, neck pain, CP, SOB, orthopnea, palpitations, abdominal pain, paresthesias, other extremity edema, other rashes, dysuria, hematuria. Allergies Allergy/AdvReac Type Severity Reaction Status Date / Time lisinopril Allergy angioedema Verified 10/05/24 12:26 sulfamethoxazole Allergy angioedema Verified 10/05/24 12:26 [From Bactrim] trimethoprim [From Bactrim] Allergy angioedema Verified 10/05/24 12:26 sildenafil AdvReac Intermediate HEADACHE Verified 11/16/21 12:03 Home Medications Medication Instructions Recorded Confirmed Type brimonidine 0.2 %-timolol 0.5 % 1 drp OPR BID 10/19/18 10/05/24 History eye drops (Combigan) omeprazole 40 mg capsule,delayed 40 mg PO BID 10/19/18 10/05/24 History release ibrutinib 140 mg capsule 420 mg PO DAILY chemo 11/16/21 10/05/24 History (Imbruvica) atorvastatin 20 mg tablet 20 mg PO DAILY 02/15/24 10/05/24 History prednisone 5 mg tablet 5 mg PO DAILY 02/15/24 10/05/24 History metoprolol succinate 25 mg 25 mg PO BID 04/29/24 10/05/24 History tablet,extended release 24 hr apixaban 2.5 mg tablet (Eliquis) 2.5 mg PO BID 10/05/24 10/05/24 History ferrous sulfate 27 mg iron tablet 27 mg PO DAILY 10/05/24 10/05/24 History hydrochlorothiazide 12.5 mg capsule 12.5 mg PO DAILY 10/05/24 10/05/24 History Past Med/Surg History Problem List (Updated 10/05/24 @ 14:27 by Henrietta Cordero PA-C) Chronic anemia Edema of right foot Syncope CLL (chronic lymphocytic leukemia) Right lower lobe pulmonary nodule Right middle lobe pneumonia Hip abductor tendinitis Constipation (Acute) Constipation (Acute) Medical History (Updated 10/05/24 @ 14:27 by Henrietta Cordero PA-C) HTN (hypertension) PMR (polymyalgia rheumatica) PAF (paroxysmal atrial fibrillation) Dyslipidemia SSS (sick sinus syndrome) CKD (chronic kidney disease), stage III GERD (gastroesophageal reflux disease) Surgical History S/P placement of cardiac pacemaker History of tonsillectomy History of appendectomy Family History Other Cancer FHx: alcoholism Social History (Updated 10/05/24 @ 14:07 by Henrietta Cordero PA-C) Smoking Status: Former smoker Hx Alcohol Use: No Hx Substance Use: No Preferred Language: Fijian Corn Popper Required: No Beliefs That Will Affect Care: None Current Living Situation: Spouse Feels Safe at Home: Yes Assistive Devices: Denture - Upper, Denture - Lower and Glasses Review of Systems Review of Systems: All systems reviewed & are unremarkable except as noted in HPI & below Physical Exam Physical Exam: General: no acute distress, WDWN elderly male Head: normocephalic, atraumatic Eyes: PERRL, EOM's intact, conjunctiva non-injected, anicteric ENT: normal inspection external ears, nose, mucous membranes mildly dry Neck: supple, trachea midline Lungs: clear, no respiratory distress, no wheezing/rhonchi/rales CV: irregularly irregular, rate 86, +murmur Abd: normal BS, soft, non-tender Ext: no cyanosis, no calf tenderness; Left hand trace diffuse edema without erythema or warmth, ROM wrist and fingers intact and non-tender at this time. RUE: no edema or erythema and ROM intact. LLE: no edema or erythema and ROM intact. RLE: +edema to ankle and entire foot, no erythema or warmth, No ankle tenderness to palpation, no great digit tenderness to palpation, mild tenderness to palpation over 4-5 distal metatarsals, sensation to light touch intact. Neuro: A&O x 3, no focal deficits noted, normal affect Skin: warm, dry Results & Data Results & Data Vital Signs (Past 12 Hours) Vital Signs Temp Pulse Pulse Resp BP BP Pulse Ox 10/05/24 12:00 93 H 16 111/74 97 10/05/24 11:44 83 19 116/81 96 10/05/24 11:38 81 24 116/83 97 10/05/24 11:20 84 21 114/87 95 10/05/24 11:05 80 20 108/84 95 10/05/24 10:44 86 18 105/74 98 10/05/24 10:18 76 10/05/24 10:07 36.8 C 88 16 92/74 L 96 10/05/24 10:06 36.8 C 88 16 92/74 L 96 10/05/24 10:06 96 O2 Del Method 10/05/24 12:00 Room Air 10/05/24 11:44 Room Air 10/05/24 11:38 Room Air 10/05/24 11:20 Room Air 10/05/24 11:05 Room Air 10/05/24 10:44 Room Air 10/05/24 10:18 10/05/24 10:07 Room Air 10/05/24 10:06 Room Air 10/05/24 10:06 Room Air Laboratory Results Short CBC 10/05/24 Range/Units 10:08 WBC 15.60 H (4.8-10.8) K/ul Hgb 11.1 L (14.0-18.0) g/dl Hct 32.6 L (42.0-52.0) % Plt Count 281 (130-400) K/uL BMP 10/05/24 10:08 Sodium 131 L Potassium 4.0 Chloride 97 L Carbon Dioxide 26 BUN 20 Creatinine 1.16 Glucose 111 H Calcium 8.4 L Cardiac Enzymes 10/05/24 Range/Units 10:08 Total Creatine Kinase 13 L (30-223) U/L Liver Function 10/05/24 Range/Units 10:08 Total Bilirubin 0.8 (0.2-1.0) mg/dl Direct Bilirubin 0.2 (0-0.2) mg/dl AST 32 (13-39) U/L ALT 50 (7-52) U/L Alkaline Phosphatase 81 (34-104) U/L Albumin 3.1 L (3.4-5.0) gm/dl Urine 10/05/24 Range/Units 11:20 Urine Color Yellow Urine Appearance Clear (Clear) Urine pH 8.0 H (4.5-7.5) Ur Specific [place] 1.016 (1.000-1.030) Urine Protein Negative (Negative) Urine Glucose (UA) Negative (Negative) Diagnostic Findings Chest X-Ray 10/05/24 10:06 XR chest 1V portable CLINICAL HISTORY: syncope TECHNIQUE: Single frontal radiograph of the chest was obtained. 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 The lungs are clear. No evidence of pleural effusion or pneumothorax. IMPRESSION: No acute chest disease. ACT 112: Negative or not required by law. Electronically signed by: Nilo Núñez M.D. 10/05/2024 11:[address] 10/05/24 10:06 CT head/brain wo con CLINICAL HISTORY: syncope Technique: Contiguous axial CT images of the head were acquired from the base of the skull to the vertex without intravenous contrast administration. Images were viewed in brain, subdural and bone windows. Automated dose lowering techniques and/or adjustment according to patient size were utilized for this exam. Comparison: Comparison is made to 10/19/2018 CT head Findings: The ventricles, basal cisterns, and cerebral sulci are normal. There is no acute intracranial hemorrhage or evidence of acute territorial infarction. Neither mass effect, shift of the midline structures, nor abnormal extra-axial fluid collections are shown. Imaged portions of the paranasal sinuses and mastoid air cells are clear. The orbits appear normal. There are no acute fractures of the calvaria or scalp swelling. Impression: No acute intracranial hemorrhage, no evidence of acute territorial infarction or other acute intracranial disease process. ACT 112: Negative or not required by law. Electronically signed by: Nilo Núñez M.D. 10/05/2024 10:57 AM ECG Additional Comments: atrial fibrillation, non specific st changes per my interpretation Supervising Physician Co-Signing Physician Notes Attending Addendum: Case reviewed with the advanced practitioner. I have personally performed a history and physical examination on the patient. I have reviewed the advanced practitioner's documentation on the date of service referenced in note, and I agree with, and take responsibility for the plan of care. please refer to her notes for full details patient seen and examined, records reviewed by myself as well ASSESSMENT AND PLAN Syncopal episodes Rule out orthostasis -Hold HCTZ, gentle IV NSS Rule out cardiac etiology -Telemetry monitoring, echocardiogram Possible vasovagal reflex in the setting of right foot pain -Foot x-ray, Doppler studies -Possible PMR flare versus gout, pseudogout Increase usual prednisone from 5 mg to 20 mg daily, With slow taper to usual dose -Ortho consulted Possible adrenal insufficiency? -Prednisone dose recently increased to 20 mg times few days then resumed usual 5 mg daily with no taper -Random cortisol 12 other diagnoses and plan of care as per advanced practitioner's notes total time spent 30 minutes Axel Orozco MD
--- OUTSIDE RECORDS SUMMARY | 2024-10-05 12:37 | External Medical Summary ---
Author Name Unknown Address Unknown Organization K09[facility] [place] [address] Laboratory Report Ordering Provider Test Date Status EFRAIN VILLALBA 05/11/2024 11:26:51 Final Observation Date Value Abnormality Reference (Units ) Status SYNC LEUKOCYTES IN BLOOD BY AUTOMATED COUNT 05/11/2024 11:26:51 13.65 Above high normal 4.00-10.80 (K/uL) Final Segs 05/11/2024 11:26:51 64.0 40.0-75.0 (%) Final Lymphs % 05/11/2024 11:26:51 26.4 18.0-42.0 (%) Final Monos 05/11/2024 11:26:51 8.5 1.0-11.0 (%) Final Eosinophils 05/11/2024 11:26:51 0.7 0.0-6.0 (%) Final Basos 05/11/2024 11:26:51 0.4 0.0-2.0 (%) Final Absolute Segs 05/11/2024 11:26:51 8.74 Above high normal 1.80-7.70 (K/uL) Final Lymphs, absolute 05/11/2024 11:26:51 3.60 1.00-4.80 (K/ul) Final Monos, Abs 05/11/2024 11:26:51 1.16 Above high normal 0.00-1.10 (K/uL) Final Eos, Abs 05/11/2024 11:26:51 0.10 0.00-0.70 (K/uL) Final Basos, Abs 05/11/2024 11:26:51 0.05 0.00-0.20 (K/uL) Final Performing Location [facility] [place] [address]
--- OUTSIDE RECORDS SUMMARY | 2024-10-05 12:37 | External Medical Summary | Summary of Care ---
Author Name Unknown Organization [facility] Address [address] [place] [address] Phone [phone] Care Team Providers Care Auto Rental Clerk Name Role Phone Amos Pastrana MD Primary Care Provider + Reason for Visit * Reason Comments Outpatient Testing Encounter Details Date Type Department Care Team (Late st Contact Info) Description 05/11/2024 11:30 AM EDT Laboratory Laboratory [facility] [place] [address] [place] [phone] [facility] [place] [address] [place] [address] CLL (chronic lymphocytic leukemia) (HCC); Carrington's esophagus Allergies Active Allergy Reactions Criticality Noted Date [...] as of this encounter (statuses as of 05/11/2024) Medications Medication Sig Dispensed Refills Start Date [...] Oral Capsule (Imbruvica)Indicat ions:CLL (chronic lymphocytic leukemia) ([facility]) TAKE 3 CAPSULES BY MOUTH IN THE MORNING. TAKE MEDICATION AT SAME TIME EVERY DAY 90 Capsule 5 10/11/2023 10/10/2024 Active Losartan Potassium 50 MG Oral Tablet (Cozaar) Take 1 Tablet by mouth in the morning. 30 Tablet 5 11/11/2023 Active predniSONE 5 MG Oral Tablet (Deltasone)Indicat ions:PMR (polymyalgia rheumatica) ([facility]) Take 1 Tablet by mouth in the morning. 90 Tablet 3 11/29/2023 Active Metoprolol Succinate ER 25 MG Oral Tablet Extended Release 24 Hour (toPROL XL)Indications:Par oxysmal atrial fibrillation ([facility]),Cardiac pacemaker in situ,SSS (sick sinus syndrome) ([facility]),RBBB (right bundle branch block),HTN, goal below 140/90 Take 1 Tablet by mouth in the morning and 1 Tablet before bedtime. 180 Tablet 3 04/01/2024 Active Additional Information Patient taking differently:25 mg Oral BID (.AM/PM),Taking once daily., Reported on 05/01/2024 Azithromycin 250 MG Oral Tablet (Zithromax) Take 1 Tablet by mouth in the morning. 04/29/2024 Active Cefuroxime Axetil 500 MG Oral Tablet (Ceftin) Take 1 Tablet by mouth in the morning. 04/29/2024 Active Omeprazole 40 MG Oral Capsule Delayed Release (PriLOSEC)Indicati ons:Carrington's esophagus Take 1 Capsule by mouth in the morning and 1 Capsule before bedtime. 180 Capsule 2 05/07/2024 Active documented as of this encounter (statuses as of 05/11/2024) Active Problems Problem Noted Date Diagnosed Date [...] 11/30/2013 Lung nodule 10/30/2012 Overview: RLL. Stable [id number]. 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 Consider lulu 5y. 03/24- EGD-stage C0-M1 per [place] criteria. No dysplasia. REC LULU 03/2018 Other specified glaucoma Generalized osteoarthritis Irritable bowel syndrome documented as of this encounter (statuses as of 05/11/2024) Resolved Problems Problem Noted Date Diagnosed Date [...] . 10/28 4.6 thror aneurysm on [facility] CT--TTE orderd for 6mo 2017- Living [place] copy on file 01/24 colon-WNL 01/22 ACC risk 24% declined statin. 11/23 PFTs WNL 06/22 colonoscopy WNL. +int hemorrhoids, divertic. 12/20 fell on ice-UOC rec tendon repair knee 10/22 pt declined prostate screen Bradycardia 10/30/2012 01/07/2020 Dyslipidemia 10/05/2021 Rotator cuff injury 04/28/20 Overview: right documented as of this encounter (statuses as of 05/11/2024) Immunizations Name Administration Dates Next Due COVID-19 [...] No 10/18/2023 Does the household have a [place] source of income? (Household - for ages [...] Care Team (Late st Contact Info) Description 05/14/2024 9:00 AM EDT Pharmacy Pharmacy Hematology Oncology [facility] [address] [place] [address] [facility], [facility] Hem/Onc [address] [facility] [place] [address] 06/05/2024 3:15 PM EDT Office Visit Hematology/Oncology [facility] [place] [address] [place] [address] Jesus Penaloza MD [address] [place] [address] 06/05/2024 3:45 PM EDT Immunization/Inject ion Hematology/Oncology Treatment, [place] [address] [place] [phone] 11/06/2024 10:30 AM EST Office Visit Cardiology, [facility] 132 [facility] [place] [address] Quyen Connolly CRNP 400 [facility] [place] [phone] 11/15/2024 10:30 AM EST Office Visit Rheumatology [facility] [address] [place] [address] Mario Dover PA-C [address] [place] [address] Pending Results Name Type Priority Associated Diagnoses Date /Time CBC WITH WBC DIFFERENTIAL Lab STAT CLL (chronic lymphocytic leukemia) ([facility]) 05/11/2024 11:26 AM EDT COMPREHENSIVE METABOLIC PANEL Lab STAT CLL (chronic lymphocytic leukemia) ([facility]) 05/11/2024 11:26 AM EDT URIC ACID Lab STAT CLL (chronic lymphocytic leukemia) ([facility]) 05/11/2024 11:26 AM EDT LD Lab STAT CLL (chronic lymphocytic leukemia) ([facility]) 05/11/2024 11:26 AM EDT MAGNESIUM Lab Routine Carrington's esophagus 05/11/2024 11:26 AM EDT CBC Lab STAT CLL (chronic lymphocytic leukemia) ([facility]) 05/11/2024 11:26 AM EDT DIFFERENTIAL, AUTOMATED Lab STAT CLL (chronic lymphocytic leukemia) ([facility]) 05/11/2024 11:26 AM EDT Health Maintenance Due Date Last Done Comments CKD PHOS USE SMARTSET 56421 1953 Carrington's Esophagus Surveilance 04/03/2021 04/03/2018, 04/03/2018, 04/01/2015, Additional history exists *BISPHONATE OR OTHER ACCEPTABLE MEDICATION NEEDED FOR OSTEOPOROSIS (REFER TO SMARTSET #1146) 12/30/2023 Influenza Vaccine (FLU shot) (#1) 2024 06/15/2023, 06/16/2022, 06/16/2021, Additional history exists Albumin/Creatinine Ratio 07/29/2024 07/29/2023, 05/10 DXA Scan 11/10/2024 11/10/2022, 11/10/2022 Depression Screening 01/26/2025 01/27/2024 CKD HGB USE SMARTSET 51057 02/09/202502/09, 02/10/2024, 12/16/2023, Additional history exists DTaP,Tdap,and Td Vaccines (3 - Td or Tdap) 06/30/2032 06/30/2022, 10/30/2012 Pneumococcal Vaccine: 65+ Years Completed 07/25/2015, 10/10/2002 Zoster Vaccines Completed 09/26/2019, 06/10, 10/10/2009 VITAMIN D LEVEL ONCE IN A LIFETIME-USE SMARTSET# 09747 Completed 12/16/2023, 12/17/2022 COVID-19 Vaccine Completed 12/24/2023, [...] leukemia, without mention of having achieved remission Carrington's esophagus documented in this encounter Care Teams Auto Rental Clerk Relationship Specialty Start Date End Date Amos Pastrana MD [address] [place] [address] PCP - General Family Medicine 04/28/24 documented as of this encounter
--- OUTSIDE RECORDS SUMMARY | 2024-10-05 12:37 | External Medical Summary ---
Author Name Unknown Address Unknown Organization K01:[facility] [address] [place] [address] Laboratory Report Ordering Provider Test Date Status EFRAIN VILLALBA 05/11/2024 11:26:51 Final Observation Date Value Abnormality Reference (Units ) Status LDH 05/11/2024 11:26:51 226 <=250 (U/L ) Final Result may be falsely elevat ed due to hemolysis. Performing Location [facility] - [address] [place] [address]
--- OUTSIDE RECORDS SUMMARY | 2024-10-05 12:37 | External Medical Summary ---
Author Name Unknown Address Unknown Organization K09[facility] [place] [address] Laboratory Report Ordering Provider Test Date Status EFRAIN VILLALBA 05/11/2024 11:26:51 Final Observation Date Value Abnormality Reference (Units ) Status Nucleated erythrocytes/100 leukocytes [Ratio] in Blood by Automated count 05/11/2024 11:26:51 Final Performing Location [facility] [place] [address]
--- OUTSIDE RECORDS SUMMARY | 2024-10-05 12:37 | External Medical Summary ---
Author Name Unknown Address Unknown Organization K09:[facility] [place] [address] Laboratory Report Ordering Provider Test Date Status MILKA MARLEY 05/11/2024 11:26:51 Final Observation Date Value Abnormality Reference (Units ) Status Magnesium 05/11/2024 11:26:51 2.0 1.5-2.6 (m g/dL) Final Performing Location [facility] [place] [address]
--- OUTSIDE RECORDS SUMMARY | 2024-10-05 12:37 | External Medical Summary ---
Author Name Unknown Address Unknown Organization K09:[facility] [address] [place] [address] Laboratory Report Ordering Provider Test Date Status EFRAIN VILLALBA 05/11/2024 11:26:51 Final Observation Date Value Abnormality Reference (Units ) Status BUN 05/11/2024 11:26:51 16 6-20 (mg/dL) Final Creatinine 05/11/2024 11:26:51 1.1 0.6-1.2 (mg/dL) Final Glomerular filtration rate/1.73 sq M.predicted [Volume Rate/Area] in Serum, Plasma or Blood by Creatinine-based formula (CKD-EPI) 05/11/2024 11:26:51 66 >=60 (mL/min) Final eGFR is calculated based on the CKD-EPI 2020 equation. Sodium 05/11/2024 11:26:51 138 135-146 (m mol/L) Final Potassium 05/11/2024 11:26:51 4.1 3.5-5.1 (m mol/L) Final Cl 05/11/2024 11:26:51 102 98-107 (mm ol/L) Final CO2 05/11/2024 11:26:51 27 22-32 (mmo l/L) Final Anion gap 05/11/2024 11:26:51 9 7-15 (mmol /L) Final Glucose 05/11/2024 11:26:51 95 70-120 (mg /dL) Final Albumin 05/11/2024 11:26:51 3.7 Below low normal 3.8 -5.0 (g/dL) Final AST (Aspartate aminotransferase) 05/11/2024 11:26:51 18 10-50 (U/L) Fin al Alk Phos 05/11/2024 11:26:51 60 35-130 (U/ L) Final Bilirubin, Total 05/11/2024 11:26:51 0.5 <=1 .2 (mg/dL) Final Calcium 05/11/2024 11:26:51 9.1 8.4-10.2 ( mg/dL) Final Protein 05/11/2024 11:26:51 6.1 6.0-8.3 (g /dL) Final ALT (Alanine aminotransferase) 05/11/2024 11:26:51 14 10-50 (U/L) Anselmo batres Performing Location [facility] [address] [place] [address]
--- OUTSIDE RECORDS SUMMARY | 2024-10-05 12:37 | External Medical Summary ---
Author Name Unknown Address Unknown Organization [id number]:[facility] – [place] - [address] [place] [address] Laboratory Report Ordering Provider Test Date Status EFRAIN VILLALBA 05/11/2024 11:26:51 Final Observation Date Value Abnormality Reference (Units ) Status Uric Acid 05/11/2024 11:26:51 4.6 3.4-7.0 (m g/dL) Final Performing Location [facility] – [place] - [address] [place] [address]
--- OUTSIDE RECORDS SUMMARY | 2024-10-05 12:37 | External Medical Summary | Summary of Care ---
Author Name Unknown Organization [facility] Address [address] [place] [address] Phone [phone] Prov[address] Care Ct Scan Special Procedures Technologist Name Role Phone Amos Pastrana MD Primary Care Provider + Reason for Visit * Reason Comments Medication Management Encounter Details Date Type Department Care Team (Late st Contact Info) Description 05/14/2024 9:00 AM EDT Pharmacy Pharmacy Hematology Oncology [facility] [address] [place] [address] [facility] Hem[facility]Onc [address] [place], [place] [id number] CLL (chronic lymphocytic leukemia) ([facility])* Allergies Active Allergy Reactions Criticality Noted Date [...] as of this encounter (statuses as of 05/14/2024) Medications Medication Sig Dispensed Refills Start Date [...] 07/11/2023 Active Ibrutinib 140 MG Oral Capsule (Imbruvica)Indica tions:CLL (chronic lymphocytic leukemia) ([facility]) TAKE 3 CAPSULES BY MOUTH IN THE MORNING. TAKE MEDICATION AT SAME TIME EVERY DAY 90 Capsule 5 10/11/2023 5 Active Losartan Potassium 50 MG Oral Tablet (Cozaar) Take 1 Tablet by mouth in the morning. 30 Tablet 5 11/11/2023 Active predniSONE 5 MG Oral Tablet (Deltasone)Indica tions:PMR (polymyalgia rheumatica) ([facility]) Take 1 Tablet by mouth in the morning. 90 Tablet 3 11/29/2023 Active Metoprolol Succinate ER 25 MG Oral Tablet Extended Release 24 Hour (toPROL XL)Indications:Pa roxysmal atrial fibrillation ([facility]),Cardiac pacemaker in situ,SSS (sick sinus syndrome) ([facility]),RBBB (right bundle branch block),HTN, goal below [...] before bedtime. 180 Capsule 2 05/07/2024 Active Azithromycin 250 MG Oral Tablet (Zithromax) Take 1 Tablet by mouth in the morning. 04/29/2024 4 Discontinue d(Medicatio n List Clean Up) Cefuroxime Axetil 500 MG Oral Tablet (Ceftin) Take 1 Tablet by mouth in the morning. 04/29/2024 4 Discontinue d(Medicatio n List Clean Up) documented as of this encounter (statuses as of 05/14/2024) Active Problems Problem Noted Date Diagnosed Date [...] 11/30/2013 Lung nodule 10/30/2012 Overview: RLL. Stable [id number]. 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 Consider lulu 5y. 03/24- EGD-stage C0-M1 per [place] criteria. No dysplasia. REC LULU 03/2018 Other specified glaucoma Generalized osteoarthritis Irritable bowel syndrome documented as of this encounter (statuses as of 05/14/2024) Resolved Problems Problem Noted Date Diagnosed Date [...] Thoracic . 10/28 4.6 thror aneurysm on [facility]--TTE orderd for 6mo 2017-f [facility] copy on file 01/24 colon-WNL 01/22 ACC risk 24% declined statin. 11/23 PFTs WNL 06/22 colonoscopy WNL. +int hemorrhoids, divertic. 12/20 fell on ice-UOC rec tendon repair knee 10/22 pt declined prostate screen Bradycardia 10/30/2012 01/07/2020 Dyslipidemia 10/05/2021 Rotator cuff injury 04/28/20 Overview: right documented as of this encounter (statuses as of 05/14/2024) Immunizations Name Administration Dates Next Due COVID-19 [...] this encounter Progress Notes * Robina Rodgers, [facility] - 05/14/2024 9:05 AM EDT MEDICATION THERAPY MANAGEMENT IBRUTINIB (IMBRUVICA) TREATMENT PROGRESS NOTE Marv Fragoso (Bob) [phone] Patient Phone Numbers Communication: Spoke to: Patient Current Treatment: Medication: Ibrutinib (Imbruvica) Indication: CLL Dose: 420mg (3x 140mg cap) daily Administration: +/- food with a full glass of water Start Date: 05/07/2020 Primary Poultry Barn Manager: Dr. Lucie Penaloza Supportive Care Meds: Ondansetron Prochlorperazine Prophylactic Meds: Losartan 50mg daily HCTZ 25mg daily Interval History: Per OV 03/31, lab monitoring extended to q2mo Allopurinol d/c'ed at OV 06/10/20 Dental procedure 02/26/22 Pt reports holding imbruvica 7 days before and after procedure. Reports holding ibrutinib around early February 2024 (~02/13/24) for pacemaker placement 02/20/24 and resuming treatment 3 weeks ago (around 05/01/24) No concerns, tolerating treatment restart well Changes to medication list since last visit? No Assessment and Plan: WBC elevated secondary to prednisone ANC elevated Will monitor closely Uric acid WNL - continue to hold allopurinol BP slightly elevated Continue close follow up with cardiology Will monitor closely All other labs stable Continue current therapy and q2mo labs Assessment of compliance: compliant Assessment of adverse effects attributed to drug therapy: Edema - absent Muscle pain/Cramps - absent Diarrhea/Constipation -absent Nausea/Vomiting - absent Bleeding - absent Rash/Pruritus - absent Hypertension - present Dose adjustment needed based on lab or adverse drug reaction? No Follow up: 3 weeks OV; 2 months MTM with labs Robina Rodgers, PharmD, BCOP Clinical Pharmacist, [facility] Oral Chemotherapy [facility] 05/14/2024, 10:08 AM Pertinent labs: Latest Reference Range & Units 12/16/23 11:51 02/10/24 11:04 05/11/24 11:26 WBC 4.00 - 10.80 K/uL 10.81 (H) 11.31 (H) 13.65 (H) RBC 4.50 - 5.25 M/uL 3.79 3.84 3.84 HGB 14.0 - 16.8 g/dL 12.3 (L) 12.7 (L) 12.5 (L) HCT 40.0 - 48.4 % 38.0 (L) 39.1 (L) 38.5 (L) MCV 82.0 - 99.5 fL 100.3 101.8 100.3 MCH 27.0 - 34.0 pg 32.5 33.1 32.6 MCHC 32.0 - 36.0 g/dL 32.4 32.5 32.5 RDW 11.5 - 15.5 % 14.0 13.6 13.9 PLT 140 - 400 K/uL 236 205 254 MPV 6.6 - 11.1 fL 9.8 10.5 9.9 CBC WITH WBC DIFFERENTIAL Rpt ! Rpt ! Rpt ! Absolute Neutrophils 1.80 - 7.70 K/uL 6.54 7.11 8.74 (H) Absolute Lymphocytes 1.00 - 4.80 K/ul 3.30 2.80 3.60 Latest Reference Range & Units 12/16/23 11:51 02/10/24 11:04 05/11/24 11:26 LD <=250 U/L 177 183 226 Uric Acid 3.4 - 7.0 mg/dL 5.9 5.7 4.6 Latest Reference Range & Units 03/01/24 11:53 04/03/24 13:23 05/11/24 11:26 Albumin 3.8 - 5.0 g/dL 3.9 4.0 3.7 (L) AST 10 - 50 U/L 24 23 18 ALT 10 - 50 U/L 19 22 14 Alkaline Phosphatase 35 - 130 U/L 67 73 60 Bilirubin, Total <=1.2 mg/dL 0.4 0.3 0.5 02/13/2024 02/20/2024 05/01/2024 BP AND WT. Systolic 172 94 148 Diastolic 88 65 90 Time Spent on Encounter: 6 - 10 minutes Encounter Group: Hematology Encounter Interventions Item Category: Oral Chemotherapy Ibrutinib Problem/Rationale: Safety: Needs additional monitoring - Medication Requires monitoring Pharmacist Intervention(s): Lab monitoring and Toxicity monitoring Magnitude of Intervention: Monitoring with direction (Level 1) documented in this encounter Plan of Treatment Upcoming Encounters Date Type Department Care Team (Late st Contact Info) Description 06/05/2024 3:15 PM EDT Office Visit Hematology/Oncology [facility] [address] [place] [phone] Jesus Penaloza [facility] [place] [address] 06/05/2024 3:45 PM EDT Immunization/Inject ion Hematology/Oncology Treatment, [place] [address] [place] [phone] 07/16/2024 9:00 AM EDT Pharmacy Pharmacy Hematology Oncology [facility] [address] [place] [address] [facility] [place]c [address] [place] [address] 11/06/2024 10:30 AM EST Office Visit Cardiology, [facility] [address] [facility] [place] [address] Quyen Connolly CRNP [address] [place], [place] [phone] 11/15/2024 10:30 AM EST Office Visit Rheumatology [facility] [address] [place], [place] [address] Mario Dover PA-C [address] [place], [place] [address] Health Maintenance Due Date Last Done Comments CKD PHOS USE SMARTSET 06561 1955 Carrington's Esophagus Surveilance 04/03/2021 04/03/2018, 04/03/2018, 04/01/2015, Additional history exists *BISPHONATE OR OTHER ACCEPTABLE MEDICATION NEEDED FOR OSTEOPOROSIS (REFER TO SMARTSET #1146) 12/30/2023 Influenza Vaccine (FLU shot) (#1) 2024 06/15/2023, 06/16/2022, 06/16/2021, Additional history exists Albumin/Creatinine Ratio 07/29/2024 07/29/2023, 05/10 DXA Scan 11/10/2024 11/10/2022, 11/10/2022 Depression Screening 01/26/2025 01/27/2024 CKD HGB USE SMARTSET 20913 05/11/202505/11, 05/11/2024, 02/10/2024, Additional history exists DTaP,Tdap,and Td Vaccines (3 - Td or Tdap) 06/30/2032 06/30/2022, 10/30/2012 Pneumococcal Vaccine: 65+ Years Completed 07/25/2015, 10/10/2002 Zoster Vaccines Completed 09/26/2019, 06/10, 10/10/2009 VITAMIN D LEVEL ONCE IN A LIFETIME-USE SMARTSET# 88297 Completed 12/16/2023, 12/17/2022 COVID-19 Vaccine Completed 12/24/2023, [...] remission documented in this encounter Care Teams Ct Scan Special Procedures Technologist Relationship Specialty Start Date End Date Amos Pastrana MD [address] [place] [address] PCP - General Family Medicine 04/28/24 documented as of this encounter
--- OUTSIDE RECORDS SUMMARY | 2024-10-05 12:37 | External Medical Summary | Summary of Care ---
Author Name Unknown Organization [facility] Address [address] [place] [address] Phone [phone] Care Team Providers Care Buildings And Grounds Superintendent Name Role Phone Amos Pastrana MD Primary Care Provider + Reason for Visit * Reason Comments Medication Administration Vitamin B12 Encounter Details Date Type Department Care Team (Late st Contact Info) Description 05/04/2024 11:30 AM EDT Immunization/I njection Hematology/Oncology Treatment, [address] [phone] [place], Chair [address] Hem On[address] [address] Vitamin B12 deficiency (dietary) anemia* Allergies Active [...] as of this encounter (statuses as of 05/16/2024) Medications Medication Sig Dispensed Refills Start Date [...] Oral Capsule (Imbruvica)Indica tions:CLL (chronic lymphocytic leukemia) ([facility]) TAKE 3 CAPSULES BY MOUTH IN THE MORNING. TAKE MEDICATION AT SAME TIME EVERY DAY 90 Capsule 5 10/11/2023 5 Active Losartan Potassium 50 MG Oral Tablet (Cozaar) Take 1 Tablet by mouth in the morning. 30 Tablet 5 11/11/2023 Active predniSONE 5 MG Oral Tablet (Deltasone)Indica tions:PMR (polymyalgia rheumatica) ([facility]) Take 1 Tablet by mouth in the morning. 90 Tablet 3 11/29/2023 Active Metoprolol Succinate ER 25 MG Oral Tablet Extended Release 24 Hour (toPROL XL)Indications:Pa roxysmal atrial fibrillation ([facility]),Cardiac pacemaker in situ,SSS (sick sinus syndrome) ([facility]),RBBB (right bundle branch block),HTN, goal below 140/90 Take 1 Tablet by mouth in the morning and 1 Tablet before bedtime. 180 Tablet 3 04/01/2024 Active Additional Information Patient taking differently:25 mg Oral BID (.AM/PM),Taking once daily., Reported on 05/01/2024 Omeprazole 40 MG Oral Capsule Delayed Release (PriLOSEC)Indicat ions:Carrington's esophagus take 1 capsule by mouth twice a day 180 Capsule 3 03/31/2023 4 Discontinue d(Refill) Azithromycin 250 MG Oral Tablet (Zithromax) Take 1 Tablet by mouth in the morning. 04/29/2024 4 Discontinue d(Medicatio n List Clean Up) Cefuroxime Axetil 500 MG Oral Tablet (Ceftin) Take 1 Tablet by mouth in the morning. 04/29/2024 4 Discontinue d(Medicatio n List Clean Up) documented as of this encounter (statuses as of 05/16/2024) Active Problems Problem Noted Date Diagnosed Date [...] 11/30/2013 Lung nodule 10/30/2012 Overview: RLL. Stable [id number]. 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 Consider lulu 5y. 03/24- EGD-stage C0-M1 per [place] criteria. No dysplasia. REC LULU 03/2018 Other specified glaucoma Generalized osteoarthritis Irritable bowel syndrome documented as of this encounter (statuses as of 05/16/2024) Resolved Problems Problem Noted Date Diagnosed Date [...] . 10/28 4.6 thror aneurysm on [facility] CT--TTE orderd for 6mo 2017-f Living [place] copy on file 01/24 colon-WNL 01/22 ACC risk 24% declined statin. 11/23 PFTs WNL 06/22 colonoscopy WNL. +int hemorrhoids, divertic. 12/20 fell on ice-UOC rec tendon repair knee 10/22 pt declined prostate screen Bradycardia 10/30/2012 01/07/2020 Dyslipidemia 10/05/2021 Rotator cuff injury 04/28/20 Overview: right documented as of this encounter (statuses as of 05/16/2024) Immunizations Name Administration Dates Next Due COVID-19 [...] No 10/18/2023 Does the household have a [facility] source of income? (Household - for ages [...] Nursing Notes * Madyson Arellano LPN - 05/04/2024 11:23 AM EDT Pt arrived for vitamin B12 injection. Administered in L deltoid. Pt tolerated well. To return in 4 weeks. Discharged in stable condition. documented in this encounter Plan of Treatment Upcoming Encounters Date Type Department Care Team (Late st Contact Info) Description 06/05/2024 3:15 PM EDT Office Visit Hematology/Oncology [facility] [place] [address] [facility] [place] [phone] Jesus Penaloza MD [address] [facility] [place] [address] 06/05/2024 3:45 PM EDT Immunization/Inject ion Hematology/Oncology Treatment, [place] [address] [place] [phone] [place], Chair 10 Hem Onc [facility] [address] [facility] [place] [address] 07/16/2024 9:00 AM EDT Pharmacy Pharmacy Hematology Oncology [facility] [address] [place] [address] [facility] Hem/Onc [address] [place] [address] 11/06/2024 10:30 AM EST Office Visit Cardiology, [facility] [address] [facility] [place] [phone] Quyen Connolly CRNP [address] [place], [place] [phone] 11/15/2024 10:30 AM EST Office Visit Rheumatology [facility] [address] [employer] [place] [address] Mario Dover PA-C [address] [employer] [place] [address] Health Maintenance Due Date Last Done Comments CKD PHOS USE SMARTSET 86136 1953 Adult Wellness Visit 11/26/2020 11/26/2019 Carrington's Esophagus Surveilance 04/03/2021 04/03/2018, 04/03/2018, 04/01/2015, Additional history exists *BISPHONATE OR OTHER ACCEPTABLE MEDICATION NEEDED FOR OSTEOPOROSIS (REFER TO SMARTSET #1146) 12/30/2023 Influenza Vaccine (FLU shot) (#1) 2024 06/15/2023, 06/16/2022, 06/16/2021, Additional history exists Albumin/Creatinine Ratio 07/29/2024 07/29/2023, 05/10 DXA Scan 11/10/2024 11/10/2022, 11/10/2022 Depression Screening 01/26/2025 01/27/2024 CKD HGB USE SMARTSET 48384 05/11/202505/11, 05/11/2024, 02/10/2024, Additional history exists DTaP,Tdap,and Td Vaccines (3 - Td or Tdap) 06/30/2032 06/30/2022, 10/30/2012 Pneumococcal Vaccine: 65+ Years Completed 07/25/2015, 10/10/2002 Zoster Vaccines Completed 09/26/2019, 06/10, 10/10/2009 VITAMIN D LEVEL ONCE IN A LIFETIME-USE SMARTSET# 11723 Completed 12/16/2023, 12/17/2022 COVID-19 Vaccine Completed 12/24/2023, [...] 1,000 mcg 1,000 mcg, Intramuscular, ONCE, On Tue05/04/24 at 1200, For 1 dose Given 05/04/2024 11:17 AM EDT 1,000 mcg Deltoid Left Upper documented in this encounter Care Teams Buildings And Grounds Superintendent Relationship Specialty Start Date End Date Amos Pastrana MD [address] [place] [address] PCP - General Family Medicine 04/28/24 documented as of this encounter
--- OUTSIDE RECORDS SUMMARY | 2024-10-05 12:37 | External Medical Summary ---
Author Name Unknown Address Unknown Organization K09:[facility] [place] [address] Laboratory Report Ordering Provider Test Date Status EFRAIN VILLALBA 05/11/2024 11:26:51 Final Observation Date Value Abnormality Reference (Units ) Status WBC, Total 05/11/2024 11:26:51 13.65 Above high normal 4 .00-10.80 (K/uL) Final RBC 05/11/2024 11:26:51 3.84 4.50-5.25 (M/uL) Final Hemoglobin 05/11/2024 11:26:51 12.5 Below low normal 14 .0-16.8 (g/dL) Final HCT 05/11/2024 11:26:51 38.5 Below low normal 40. 0-48.4 (%) Final MCV 05/11/2024 11:26:51 100.3 82.0-99.5 (fL) Final MCH 05/11/2024 11:26:51 32.6 27.0-34.0 (pg) Final MCHC 05/11/2024 11:26:51 32.5 32.0-36.0 (g/dL) Final RDW 05/11/2024 11:26:51 13.9 11.5-15.5 (%) Final Platelets 05/11/2024 11:26:51 254 140-400 (K /uL) Final MPV 05/11/2024 11:26:51 9.9 6.6-11.1 ( fL) Final Performing Location [facility] [place] [address]
--- OUTSIDE RECORDS SUMMARY | 2024-10-05 12:38 | External Medical Summary | Summary of Care ---
Author Name Unknown Organization [facility] Address [address] [place] [address] Phone [phone] Care Team Providers Care Software Engineering Manager Name Role Phone Amos Pastrana MD Primary Care Provider + Encounter Details Date Type Department Care Team (Late st Contact Info) Description 05/01/2024 Result Scan Unspecified Department Lianna Keenan China, DO [address], [place] [id number] <No scans attached> Allergies Active Allergy Reactions [...] as of this encounter (statuses as of 05/02/2024) Medications Medication Sig Dispensed Refills Start Date End Date Status COMBIGAN 0.2-0.5 % OP SOLN Instill 1 Drop into the right eye in the morning and 1 Drop before bedtime. Active Centrum Adults Oral Tablet 1 tab daily 1 Tablet 12/07/2022 Active Omeprazole 40 MG Oral Capsule Delayed Release (PriLOSEC)Indicati ons:Carrington's esophagus take 1 capsule by mouth twice a day 180 Capsule 3 03/31/2023 Active Atorvastatin Calcium 20 MG Oral Tablet (Lipitor)Indicatio ns:Dyslipidemia, goal LDL below 100 take 1 tablet by mouth once daily 90 Tablet 3 07/11/2023 Active Ibrutinib 140 MG Oral Capsule (Imbruvica)Indicat ions:CLL (chronic lymphocytic leukemia) ([facility]) TAKE 3 CAPSULES BY MOUTH IN THE MORNING. TAKE MEDICATION AT SAME TIME EVERY DAY 90 Capsule 5 10/11/2023 10/10/2024 Active Losartan Potassium 50 MG Oral Tablet (Cozaar) Take 1 Tablet by mouth in the morning. 30 Tablet 5 11/11/2023 Active predniSONE 5 MG Oral Tablet (Deltasone)Indicat ions:PMR (polymyalgia rheumatica) ([facility]) Take 1 Tablet by mouth in the morning. 90 Tablet 3 11/29/2023 Active Metoprolol Succinate ER 25 MG Oral Tablet Extended Release 24 Hour (toPROL XL)Indications:Par oxysmal atrial fibrillation ([facility] [...] by mouth in the morning. 04/29/2024 Active documented as of this encounter (statuses as of 05/02/2024) Active Problems Problem Noted Date Diagnosed Date [...] 11/30/2013 Lung nodule 10/30/2012 Overview: RLL. Stable [id number]. 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 Consider lulu 5y. 03/24- EGD-stage C0-M1 per [place] criteria. No dysplasia. REC LULU 03/2018 Other specified glaucoma Generalized osteoarthritis Irritable bowel syndrome documented as of this encounter (statuses as of 05/02/2024) Resolved Problems Problem Noted Date Diagnosed Date [...] . 10/28 4.6 thror aneurysm on [facility] CT--TTE orderd for 6mo 2017-f [facility] copy on file 01/24 colon-WNL 01/22 ACC risk 24% declined statin. 11/23 PFTs WNL 06/22 colonoscopy WNL. +int hemorrhoids, divertic. 12/20 fell on ice-[facility] rec tendon repair knee 10/22 pt declined prostate screen Bradycardia 10/30/2012 01/07/2020 Dyslipidemia 10/05/2021 Rotator cuff injury 04/28/20 Overview: right documented as of this encounter (statuses as of 05/02/2024) Immunizations Name Administration Dates Next Due COVID-19 [...] Contact Info) Description 05/04/2024 11:30 AM EDT Immunization/Inject ion Hematology/Oncology Treatment, [place] [address] [place] [address] Fanta, Chair 3 Hem Onc [facility] [address] [facility] [place] [address] 05/07/2024 9:00 AM EDT Pharmacy Pharmacy Hematology Oncology [place] [address] [place] [address] [facility] [address] [place] [address] 06/05/2024 3:15 PM EDT Office Visit Hematology/Oncology [facility] [address] [facility] [place], [place] [phone] Jesus Penaloza MD [address] [facility] [place] [address] 06/05/2024 3:45 PM EDT Immunization/Inject ion [facility]ematology[facility], [place] [facility] [phone] 11/06/2024 10:30 AM EST Office Visit Cardiology, [facility] [address] [facility] [place] [address] Quyen Connolly CRNP [address] [facility] [place] [address] 11/15/2024 10:30 AM EST Office Visit Rheumatology [facility] [address] [place], [place] [address] Mario Dover PA-C [address] [place], [place] [address] Health Maintenance Due Date Last Done Comments CKD PHOS USE SMARTSET [id number] Carrington's Esophagus Surveilance 04/03/2021 04/03/2018, 04/03/2018, 04/01/2015, Additional history exists *BISPHONATE OR OTHER ACCEPTABLE MEDICATION NEEDED FOR OSTEOPOROSIS (REFER TO SMARTSET #1146) 12/30/2023 Influenza Vaccine (FLU shot) (#1) 2024 06/15/2023, 06/16/2022, 06/16/2021, Additional history exists Albumin/Creatinine Ratio 07/29/2024 07/29/2023, 05/10 DXA Scan 11/10/2024 11/10/2022, 11/10/2022 Depression Screening 01/26/2025 01/27/2024 CKD HGB USE SMARTSET 64935 02/09/202502/09, 02/10/2024, 12/16/2023, Additional history exists DTaP,Tdap,and Td Vaccines (3 - Td or Tdap) 06/30/2032 06/30/2022, 10/30/2012 Pneumococcal Vaccine: 65+ Years Completed 07/25/2015, 10/10/2002 Zoster Vaccines Completed 09/26/2019, 06/10, 10/10/2009 VITAMIN D LEVEL ONCE IN A LIFETIME-USE SMARTSET# [id number] Completed 12/16/2023, 12/17/2022 COVID-19 Vaccine Completed 12/24/2023, [...] Date/Time Associated Diagnosis Comments CARDIOLOGY SCANNED RESULT 05/01/2024 documented in this encounter Results * CARDIOLOGY SCANNED RESULT (05/01/2024) 05/01/2024 Lianna Keenan DO OTHER documented in this encounter Care Teams Software Engineering Manager Relationship Specialty Start Date End Date Amos Pastrana MD [address] [facility] [place] [address] PCP - General Family Medicine 04/28/24 documented as of this encounter
--- OUTSIDE RECORDS SUMMARY | 2024-10-05 12:38 | External Medical Summary | Summary of Care ---
Author Name Unknown Organization [facility] Address [address] [place] [address] Phone [phone] Care Team Providers Care Crematory Attendant Name Role Phone Amos Pastrana MD Primary Care Provider + Reason for Visit * Reason Comments Follow Up Encounter Details Date Type Department Care Team (Late st Contact Info) Description 05/01/2024 11:00 AM EDT Office Visit Cardiology, [facility] [address] [place] [phone] Lianna Keenan, [address] [place] [address] SSS (sick sinus syndrome) (FORMERLY [facility])*; PAF (paroxysmal atrial fibrillation) (FORMERLY [facility]); HTN, goal below 150/90; Hyperlipidemia with target LDL less than 100 Allergies Active Allergy Reactions Criticality Noted Date [...] as of this encounter (statuses as of 05/08/2024) Medications Medication Sig Dispensed Refills Start Date End Date Status COMBIGAN 0.2-0.5 % OP SOLN Instill 1 Drop into the right eye in the morning and 1 Drop before bedtime. Active Centrum Adults Oral Tablet 1 tab daily 1 Tablet 3 Active Atorvastatin Calcium 20 MG Oral Tablet (Lipitor)Indicat ions:Dyslipidemi a, goal LDL below 100 take 1 tablet by mouth once daily 90 Tablet 3 3 Active Ibrutinib 140 MG Oral Capsule (Imbruvica)Indic ations:CLL (chronic lymphocytic leukemia) (FORMERLY [facility]) TAKE 3 CAPSULES BY MOUTH IN THE MORNING. TAKE MEDICATION AT SAME TIME EVERY DAY 90 Capsule 5 4 10/10/19 25 Active Losartan Potassium 50 MG Oral Tablet (Cozaar) Take 1 Tablet by mouth in the morning. 30 Tablet 5 4 Active predniSONE 5 MG Oral Tablet (Deltasone)Indic ations:PMR (polymyalgia rheumatica) ([facility]) Take 1 Tablet by mouth in the morning. 90 Tablet 3 4 Active Metoprolol Succinate ER 25 MG Oral Tablet Extended Release 24 Hour (toPROL XL)Indications:P aroxysmal atrial fibrillation ([facility]),Cardiac pacemaker in situ,SSS (sick sinus syndrome) ([facility]),RBBB (right bundle branch block),HTN, goal below 140/90 Take 1 Tablet by mouth in the morning and 1 Tablet before bedtime. 180 Tablet 3 4 Active Additional Information Patient taking differently:25 mg Oral BID (.AM/PM),Taking once daily., Reported on 05/01/2024 Azithromycin 250 MG Oral Tablet (Zithromax) Take 1 Tablet by mouth in the morning. 4 Active Cefuroxime Axetil 500 MG Oral Tablet (Ceftin) Take 1 Tablet by mouth in the morning. 4 Active Omeprazole 40 MG Oral Capsule Delayed Release (PriLOSEC)Indica tions:Carrington's esophagus take 1 capsule by mouth twice a day 180 Capsule 3 3 05/06/20 24 Discontinued(Ref ill) Apixaban 2.5 MG Oral Tablet (Eliquis) Take 1 Tablet by mouth in the morning and 1 Tablet before bedtime. 60 Tablet 11 4 05/01/20 24 Discontinued(Adv erse reaction) Cephalexin 250 MG Oral Capsule (Keflex)Indicati ons:Sinoatrial node dysfunction (HCC),Cardiac pacemaker in situ Take 1 Capsule by mouth in the morning and 1 Capsule before bedtime. Until gone.. 40 Capsule 4 05/01/20 24 Discontinued documented as of this encounter (statuses as of 05/08/2024) Active Problems Problem Noted Date Diagnosed Date [...] 11/30/2013 Lung nodule 10/30/2012 Overview: RLL. Stable [id number]. 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 Consider lulu 5y. 03/24- EGD-stage C0-M1 per [place]bon criteria. No dysplasia. REC LULU 03/2018 Other specified glaucoma Generalized osteoarthritis Irritable bowel syndrome documented as of this encounter (statuses as of 05/08/2024) Resolved Problems Problem Noted Date Diagnosed Date [...] [facility] CT--TTE orderd for 6mo 2016- Living [place] copy on file 01/24 colon-WNL 01/22 ACC risk 24% declined statin. 11/23 PFTs WNL 06/22 colonoscopy WNL. +int hemorrhoids, divertic. 12/20 fell on ice-[facility] rec tendon repair knee 10/22 pt declined prostate screen Bradycardia 10/30/2012 01/07/2020 Dyslipidemia 10/05/2021 Rotator cuff injury 04/28/20 17 Overview: right documented as of this encounter (statuses as of 05/08/2024) Immunizations Name Administration Dates Next Due COVID-19 [...] Sign Reading Time Taken Comments Blood Pressure 148/90 05/01/2024 11:43 AM EDT Pulse 52 05/01/2024 11:43 AM EDT Temperature - - Respiratory Rate 14 05/01/2024 11:43 AM EDT Oxygen Saturation - - Inhaled Oxygen Concentration - - Weight 80.3 kg (177 lb) 05/01/2024 11:43 AM EDT Height - - Body Mass Index 26.91 01/27/2024 12:30 PM EDT documented in this encounter Patient Instructions * Patient Instructions* Lianna Keenan DO - 05/01/2024 12:29 PM EDT Increase metoprolol to 2x a day; if you are starting to feel more tired on the 2x a day then you can go back to 1x a day after 3 weeks on the 2x a day Your follow up appointment might be with judy connolly she is my nurse practitioner seeing myfollow ups but as long as I am not in the OR or off for the day I will pop in to see you as well documented in this encounter Progress Notes * Lianna Keenan DO - 05/01/2024 12:25 PM EDT Subjective Marv Fragoso is a 88 year old male. Chief Complaint Patient presents with Follow Up Pt returns to EP due to SSS s/p ppm Referring Provider: Dr. Pastrana Cardiac Problems: SSS s/p ppm 02/2024 pAF seen on device checks; but due to high risk of bleeding with being on imbruvica through shared decision making right now no AC; on toprol [id number] 3 (age, HTN) RBBB HLD HTN PAT brief on zio patch 05/2022 CKD stage II CLL on Imbruvica PMR Thoracic aortic aneurysm Vitamin B12 deficiency HPI: Pt presents with his Pt had PNA was at [facility] ER on Tuesday after waking up with chills blood cultures negative Otherwise since the ppm has been doing ok He did have hematoma after the ppm and some pAF seen on device check his imbruvica was held for a few weeks during the hematoma healing as well as eliquis was only started for a few days and stopped due to bleeding PMH: Patient Active Problem List Diagnosis Other specified glaucoma Generalized osteoarthritis Irritable bowel syndrome Carrington's esophagus Lung nodule HTN, goal below 140/90 Dyslipidemia CLL (chronic lymphocytic leukemia) (HCC) Vitamin B12 deficiency (dietary) anemia Thoracic aortic aneurysm without rupture (HCC) Primary osteoarthritis of right knee Aldrich's cyst of knee, right Sinus node dysfunction (HCC) PMR (polymyalgia rheumatica) (HCC) History of 2019 novel coronavirus disease (COVID-19) Age-related osteoporosis without current pathological fracture Sinus bradycardia Iron deficiency anemia Recurrent cellulitis of lower leg Chronic kidney disease, stage 3a ([facility]) Current Outpatient Medications Medication Sig Dispense Refill COMBIGAN 0.2-0.5 % OP SOLN Instill 1 Drop into the right eye in the morning and 1 Drop before bedtime. Centrum Adults Oral Tablet 1 tab daily 1 Tablet 0 Omeprazole 40 MG Oral Capsule Delayed Release (PriLOSEC) take 1 capsule by mouth twice a day 180 Capsule 3 Atorvastatin Calcium 20 MG Oral Tablet (Lipitor) [...] bedtime. Taking once daily..) 180 Tablet 3 Azithromycin 250 MG Oral Tablet (Zithromax) Take 1 Tablet by mouth in the morning. Cefuroxime Axetil 500 MG Oral Tablet (Ceftin) Take 1 Tablet by mouth in the morning. No current facility-administered medications for this visit. Past Medical History: Diagnosis Date Anal lesion [...] performed by Mikel Walsh MD at ENDOSCOPY [facility] COLONOSCOPY, DIAGNOSTIC (RECTUM) 01/25/2017 diverticulosis, repeat 10 yrs/[facility] EGD, FLEXIBLE, DIAGNOSTIC 04/01/2015 Barretts, HH, repeat 3 yrs/ESOPHAGOGASTRODUODENOSCOPY (EGD), FLEXIBLE, TRANSORAL, DIAGNOSTIC performed by Mikel Walsh MD at ENDOSCOPY [facility] EGD, FLEXIBLE, DIAGNOSTIC 04/03/2018 Barretts/ESOPHAGOGASTRODUODENOSCOPY (EGD), FLEXIBLE, TRANSORAL, DIAGNOSTIC performed by Mikel Walsh MD at ENDOSCOPY [facility] OTHER 1985 compound fracture REMOVAL OF [...] and Neuro complications (Please comment) "Viagra" headaches Family History Problem Relation Name Age of Onset Alcohol and Other Disorders Associated Father Marv Lung Disorder Father Marv large benign tumour Alcohol and Other Disorders Associated Brother Angelito Cancer Brother Angelito tongue. in 1977 Arthritis Mother Mary hands Gastro-intestinal disorder Mother Mary part of bowel removed Family Status Relation Status Mo at age 85 Fa at age 74--lung problems Fa (Not Specified) Bro Mo (Not Specified) Social History Socioeconomic History Marital status: Spouse name: Macie Number of children: 2 Years of education: Not on file Highest education level: Not on file Occupational History Occupation: retired Comment: [employer] Tobacco Use Smoking status: Former Current packs/day: 0.00 Average packs/day: 0.5 packs/day for 28.0 years (14.0 ttl pk-yrs) Types: Cigarettes Start date: 09/22/1961 Quit date: 09/22/1989 Years since quittin.6 Passive exposure: Never Smokeless tobacco: Never Vaping Use Vaping status: Never Used Substance and Sexual Activity Alcohol use: Yes Alcohol/week: 19.0 standard drinks of alcohol Types: 3 5 oz of wine, 16 1.5 oz of liquor per week Comment: pt has approx 4oz gin/ every other night, wine Drug use: No Sexual activity: Yes Partners: Female Comment: , daughter in [facility]. 1 biol grandkids, 2step. Other Topics [...] step grandkids-[employer] student, Likes gardening. Volunteers at [email or web address] community dinner. Social Determinants of Health Financial Resource Strain: Low Risk (10/18/2023) Financial [...] Stability Do you currently live in a residential or have no steady place to sleep [...] - for ages0-17 years): Not on file Review of Systems Constitutional: Negative for activity change, chills, fatigue, fever and unexpected weight change. HENT: Negative for postnasal drip, rhinorrhea and sinus pressure. Eyes: Negative for visual disturbance. Respiratory: Negative for shortness of breath. Cardiovascular: Negative for chest pain, palpitations and leg swelling. Gastrointestinal: Negative for blood in stool, constipation, diarrhea, nausea and vomiting. Genitourinary: Negative for dysuria and hematuria. Musculoskeletal: Negative for gait problem. Skin: Negative for rash. Neurological: Negative for dizziness, syncope and light-headedness. Objective BP 148/90 | Pulse 52 | Resp 14 | Wt 80.3 kg (177 lb) | BMI 26.91 kg/m | BSA 1.96 m Physical Exam Vitals and nursing note reviewed. Constitutional: General: He is awake. Appearance: Normal appearance. He is well-developed. HENT: Head: Normocephalic and atraumatic. Eyes: General: No scleral icterus. Extraocular Movements: Extraocular movements intact. Neck: Vascular: Normal carotid pulses. No carotid bruit or JVD. Cardiovascular: Rate and Rhythm: Normal rate and regular rhythm. Pulses: Carotid pulses are 2+ on the right side and 2+ on the left side. Radial pulses are 2+ on the right side and 2+ on the left side. Posterior tibial pulses are 2+ on the right side and 2+ on the left side. Heart sounds: S1 normal and S2 normal. No murmur heard. Pulmonary: Effort: Pulmonary effort is normal. Breath sounds: Normal breath sounds. No decreased breath sounds, wheezing, rhonchi or rales. Chest: Comments: Left pectoral region; ppm site no evidence of threatened erosion Abdominal: Palpations: Abdomen is soft. Musculoskeletal: Cervical back: Neck supple. Right lower leg: No edema. Left lower leg: No edema. Skin: General: Skin is warm and dry. Neurological: General: No focal deficit present. Mental Status: He is alert and oriented to person, place, and time. Psychiatric: Attention and Perception: Attention normal. Mood and Affect: Mood normal. Speech: Speech normal. Behavior: Behavior normal. Behavior is cooperative. Thought Content: Thought content normal. Cognition and Memory: Cognition normal. Judgment: Judgment normal. RESULTS: Dual ppm Interrogation today Independently performed and interpreted by myself Presenting Rhythm AP-VS Underlying rhythm -VS 30bpm Battery function good Lead testing RA 1mV; 540 ohms; 1.25V @ 0.4ms Left bundle 10mV; 510 ohms; 0.75V @ 0.4ms Arrhythmia log None Reprogramming Atrial amplitude lowered RV auto capture turned on with auto AV paced/sensed AV delay 50/25ms; with search interval for 8 hours; back up configuration bipolar Decreased RV amplitude to 1V ECGS: 02/10/2024: B 43bpm RBBB 10/05/2021: SB 43bpm Nonspecific IVCD 07/24/2020: SB 44bpm RBBB 05/09/2012: SB 45bpm Echocardiogram: 02/13/2024: The qualitative LV ejection fraction is 60-64% (normal). [id number]-[id number] aortic regurgitation. Moderate tricuspid regurgitation is present. The estimated pulmonary artery systolic pressure is 47mm Hg. The aortic root is mildly enlarged, 4.3 cm. The ascending aorta is moderately enlarged, 4.9 cm. Compared to last available study changes are noted as follows: The estimated systolic pulmonary pressure has increased. Ascending aortic diameter has increased when compared to study dated June 09, 2022, however, unchanged when compared to study dated August 01, 2020. 06/09/2022: The qualitative LV ejection fraction is 55-59% (normal). No LV segmental wall motion abnormalities. The left ventricular diastolic function is mildly abnormal (grade I). There is mild to moderate aortic regurgitation. The aortic root and proximal ascending aorta are moderately enlarged (4.4cm) 08/01/2020: The qualitative LV ejection fraction is 55-59% (normal). The left ventricular wall motion is normal. Mild aortic valve sclerosis is present. Mild to moderate aortic regurgitation is present. Mild mitral regurgitation is present. Moderate tricuspid regurgitation is present. The estimated pulmonary artery systolic pressure is 35-40mm Hg. The proximal ascending thoracic aorta is severely enlarged. The aortic root is moderately enlarged. 04/23/2019: Normal LV chamber size and wall thickness. Normal LV systolic function without regional wall motion abnormality. Calculated LV ejection Fraction = 58% (bi-plane method of discs). Grade I diastolic dysfunction. The aortic valve has three leaflets. Mild aortic valve sclerosis is present. Aortic stenosis is absent. Mild aortic valve regurgitation is present. Mild mitral regurgitation. Moderate tricuspid regurgitation. The aortic root is moderately enlarged. The proximal ascending thoracic aorta is severely enlarged. Exercise Echo Stress Test: 06/05/2012: The stress test was terminated due to fatigue. Heart rate response to stress was normal. The stress EKG response showed no evidence of ischemia. The left ventricular wall motion with stress is normal. Mild aortic valve regurgitation is present. The stress echo is negative for inducible ischemia. Zio Patch: 01/19/2024: CONCLUSIONS: Final Interpretation Indications: Bradycardia Duration: 6 days, 21 hours Preliminary Findings Prepared by Cira Powers, SARAH 02/03/24 Results: Patient had a min HR of 33 bpm, max HR of 128 bpm, and avg HR of 43 bpm. Predominant underlying rhythm was Sinus Rhythm. Bundle Branch Block/IVCD was present. 5 Supraventricular Tachycardia runs occurred, the run with the fastest interval lasting 6 beats with a max rate of 128 bpm, the longest lasting 8 beats with an avg rate of 92 bpm. Isolated SVEs were rare (<1.0%), SVE Couplets were rare (<1.0%), and SVE Triplets were rare (<1.0%). Isolated VEs were occasional (1.3%, 5537), VE Couplets were rare (<1.0%, 68), and no VE Tripletswere present. No patient marker or diary entries were recorded Impression: Marked sinus bradycardia, average rate 43 beats per minute with interventricular conduction delay. Occasional ventricular ectopic beats and 5 short runs of atrial tachycardia were present 08/08/2020: CONCLUSIONS: Patient had a min HR of 31 bpm, max HR of 136 bpm, and avg HR of 49 bpm. Predominant underlying rhythm was Sinus Rhythm. 6 Supraventricular Tachycardia runs occurred, the run with the fastest interval lasting 4 beats with a max rate of 136 bpm, the longest lasting 7 beats with an avg rate of 110 bpm. Isolated SVEs were rare (<1.0%), SVE Couplets were rare (<1.0%), and SVE Triplets were rare (<1.0%). Isolated VEs were rare (<1.0%), VE Couplets were rare (<1.0%), and no VE Triplets were present. Ventricular Trigeminy was present. Agree with above. No arrhythmias or significant ectopy. Minimum heart rate occurred during likely hours of sleep. Nuclear Stress Test: 08/08/2020: The combined low intensity exercise/pharmacologic nuclear stress test revealed normal perfusion without evidence of infarct or ischemia. Gated SPECT imaging reveals normal myocardial thickening and wall motion. The left ventricular ejection fraction was calculated to be 69%.. Marked sinus bradycardia was noted at rest with presenting EKG revealing sinus bradycardia at 39 beats per minute. Lab Work Reviewed: Component Latest Ref Rng 02/10/2024 04/03/2024 BUN 6 - 20 mg/dL 20 Creatinine 0.6 - 1.2 mg/dL 1.3 (H) Estimated Glomerular Filtration Rate >=60 mL/min 55 (L) Sodium 135 - 146 mmol/L 140 Potassium 3.5 - 5.1 mmol/L 4.4 Chloride 98 - 107 mmol/L 104 CO2 22 - 32 mmol/L 25 Anion Gap 7 - 15 mmol/L 11 Glucose 70 - 120 mg/dL 126 (H) Albumin 3.8 - 5.0 g/dL 4.0 AST 10 - 50 U/L 23 Alkaline Phosphatase 35 - 130 U/L 73 Bilirubin, Total <=1.2 mg/dL 0.3 Calcium 8.4 - 10.2 mg/dL 9.4 Protein 6.0 - 8.3 g/dL 5.7 (L) ALT 10 - 50 U/L 22 WBC 4.00 - 10.80 K/uL 11.31 (H) Neutrophils % 40.0 - 75.0 % 62.8 Lymphocytes % 18.0 - 42.0 % 24.8 Monocytes % 1.0 - 11.0 % 11.2 (H) Eosinophils % 0.0 - 6.0 % 0.9 Basophils % 0.0 - 2.0 % 0.3 Absolute Neutrophils 1.80 - 7.70 K/uL 7.11 Absolute Lymphocytes 1.00 - 4.80 K/ul 2.80 Absolute Monocytes 0.00 - 1.10 K/uL 1.27 (H) Absolute Eosinophils 0.00 - 0.70 K/uL 0.10 Absolute Basophils 0.00 - 0.20 K/uL 0.03 WBC 4.00 - 10.80 K/uL 11.31 (H) RBC 4.50 - 5.25 M/uL 3.84 HGB 14.0 - 16.8 g/dL 12.7 (L) HCT 40.0 - 48.4 % 39.1 (L) MCV 82.0 - 99.5 fL 101.8 MCH 27.0 - 34.0 pg 33.1 MCHC 32.0 - 36.0 g/dL 32.5 RDW 11.5 - 15.5 % 13.6 PLT 140 - 400 K/uL 205 MPV 6.6 - 11.1 fL 10.5 ASSESSMENT: SSS s/p ppm 02/2024 pAF seen on device checks; but due to high risk of bleeding with being on imbruvica through shared decision making right now no AC; on toprol [id number] 3 (age, HTN) RBBB HLD HTN PAT brief on zio patch 05/2022 CKD stage II CLL on Imbruvica PMR Thoracic aortic aneurysm Vitamin B12 deficiency Carrington's esophagus OA IBS PLAN: -Pt doing well from cardiovascular perspective at this time -Device interrogated and reprogrammed today as outlined above -No pAF so ok to keep off AC at this juncture given the bleeding risk; if he has recurrent episodesthen we will have to re-discuss this -Continue toprol but BID instead of daily -Continue losartan and lipitor -Continue with routine device checks -Pt does not need to see general cardiology as scheduled I may -EP f/u 6 months Check-out note: Cancel f/u with gee-pt does not need general cardiology EP f/u 6 months Pt has instructions please highlight Lianna Keenan DO documented in this encounter Nursing Notes * Tessa Desouza LPN - 05/01/2024 11:42 AM EDT Examination Room: 11 Name: Marv Fragoso Date of : 1935 Reason for Visit: Follow up Problems/Concerns: Here for reprogramming Interim Hosp(s): 04/29 PNX on antibiotics Chest Pain/SOB: denies MyChart Discussed: ALREADY ACTIVE Patient was instructed to not get up on the exam table until directed and assisted by their provider; patient is to remain seated in the chair/ wheelchair/ exam table for fall prevention and safety reasons. Patient is aware staff will assist stepping down off exam table with personnel. documented in this encounter Plan of Treatment Upcoming Encounters Date Type Department Care Team (Late st Contact Info) Description 05/14/2024 9:00 AM EDT Pharmacy Pharmacy Hematology Oncology [address] [address] [facility], [facility] [address] [facility] [address] 06/05/2024 3:15 PM EDT Office Visit Hematology/Oncology [facility] [address] [place] [phone] Jesus Penaloza MD [address] [facility] [place] [address] 06/05/2024 3:45 PM EDT Immunization/Inject ion Hematology/Oncology Treatment, [place] [address] [place], [place] [phone] 11/06/2024 10:30 AM EST Office Visit Cardiology, [facility] [address] [facility] [place] [address] Quyen Connolly CRNP [address] [place] [id number] 11/15/2024 10:30 AM EST Office Visit Rheumatology [facility] [address] [place], [place] [address] Mario Dover PA-C [address] [place], [place] [address] Health Maintenance Due Date Last Done Comments CKD PHOS USE SMARTSET 51637 1955 Carrington's Esophagus Surveilance 04/03/2021 04/03/2018, 04/03/2018, 04/01/2015, Additional history exists *BISPHONATE OR OTHER ACCEPTABLE MEDICATION NEEDED FOR OSTEOPOROSIS (REFER TO SMARTSET #1146) 12/30/2023 Influenza Vaccine (FLU shot) (#1) 2024 06/15/2023, 06/16/2022, 06/16/2021, Additional history exists Albumin/Creatinine Ratio 07/29/2024 07/29/2023, 05/10 DXA Scan 11/10/2024 11/10/2022, 11/10/2022 Depression Screening 01/26/2025 01/27/2024 CKD HGB USE SMARTSET 55722 02/09/202502/09, 02/10/2024, 12/16/2023, Additional history exists DTaP,Tdap,and Td Vaccines (3 - Td or Tdap) 06/30/2032 06/30/2022, 10/30/2012 Pneumococcal Vaccine: 65+ Years Completed 07/25/2015, 10/10/2002 Zoster Vaccines Completed 09/26/2019, 06/10, 10/10/2009 VITAMIN D LEVEL ONCE IN A LIFETIME-USE SMARTSET# 82050 Completed 12/16/2023, 12/17/2022 COVID-19 Vaccine Completed 12/24/2023, [...] as of this encounter Visit Diagnoses Diagnosis SSS (sick sinus syndrome) (HCC)- Primary Sinoatrial node dysfunction PAF (paroxysmal atrial fibrillation) (HCC) Atrial fibrillation HTN, goal below 150/90 Hyperlipidemia with target LDL less than 100 Other and unspecified hyperlipidemia documented in this encounter Care Teams Crematory Attendant Relationship Specialty Start Date End Date Amos Pastrana MD [address] [facility] [place] [address] PCP - General Family Medicine 04/28/24 documented as of this encounter
--- OUTSIDE RECORDS SUMMARY | 2024-10-05 12:38 | External Medical Summary | Summary of Care ---
Author Name Unknown Organization [facility] Address [address] [place] [address] Phone [phone] Care Team Providers Care Ammonia Box Tender Name Role Phone Amos Pastrana MD Primary Care Provider + Encounter Details Date Type Department Care Team (Late st Contact Info) Description 05/10/2024 Orders Only PATIENT PORTAL DO NOT DELETE THIS DEPT USED BY [place] [id number] Allergies Active Allergy Reactions Criticality Noted Date [...] as of this encounter (statuses as of 05/10/2024) Medications Medication Sig Dispensed Refills Start Date [...] (Imbruvica)Indicat ions:CLL (chronic lymphocytic leukemia) ([facility]) TAKE 3 CAPSULES BY MOUTH IN THE MORNING. TAKE MEDICATION AT SAME TIME EVERY DAY 90 Capsule 5 10/11/2023 10/10/2024 Active Losartan Potassium 50 MG Oral Tablet (Cozaar) Take 1 Tablet by mouth in the morning. 30 Tablet 5 11/11/2023 Active predniSONE 5 MG Oral Tablet (Deltasone)Indicat ions:PMR (polymyalgia rheumatica) ([facility]) Take 1 Tablet by mouth in the morning. 90 Tablet 3 11/29/2023 Active Metoprolol Succinate ER 25 MG Oral Tablet Extended Release 24 Hour (toPROL XL)Indications:Par oxysmal atrial fibrillation ([facility]),Cardiac pacemaker in [...] as of this encounter (statuses as of 05/10/2024) Active Problems Problem Noted Date Diagnosed Date [...] 11/30/2013 Lung nodule 10/30/2012 Overview: RLL. Stable [id number]. 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 Consider lulu 5y. 03/24- EGD-stage C0-M1 per [place] criteria. No dysplasia. REC LULU 03/2018 Other specified glaucoma Generalized osteoarthritis Irritable bowel syndrome documented as of this encounter (statuses as of 05/10/2024) Resolved Problems Problem Noted Date Diagnosed Date [...] . 10/28 4.6 thror aneurysm on [facility]--TTE orderd for 6mo 2017- Living [place] copy on file 01/24 colon-WNL 01/22 ACC risk 24% declined statin. 11/23 PFTs WNL 06/22 colonoscopy WNL. +int hemorrhoids, divertic. 12/20 fell on ice-UOC rec tendon repair knee 10/22 pt declined prostate screen Bradycardia 10/30/2012 01/07/2020 Dyslipidemia 10/05/2021 Rotator cuff injury 04/28/20 Overview: right documented as of this encounter (statuses as of 05/10/2024) Immunizations Name Administration Dates Next Due COVID-19 mRNA, LNP-s, No Pre serve, 2-Dose Series (Moderna) 11/19/2021,05/25/2021,12/09/2020,11/04 Covid-19, Mrna, Lnp-s, Pf, B ivalent, 30 Mcg, IM, 12 yrs and above ([employer]) 02/24/2023,07/01/2022 Pneumococcal Conjugate Vacc, 13 Valent (Prevnar) [...] Oncology [facility] [address] [place] [address] [facility], [facility] Hem/Onc [address] [place] [address] 06/05/2024 3:15 PM EDT Office Visit Hematology/Oncology [facility] [address] [place] [address] Jesus Penaloza MD [address] [place] [address] 06/05/2024 3:45 PM EDT Immunization/Inject ion Hematology/Oncology Treatment, [place] [address] [place] [address] 11/06/2024 10:30 AM EST Office Visit Cardiology, [facility] [address] [place] [address] Quyen Connolly CRNP [address] [place] [address] 11/15/2024 10:30 AM EST Office Visit Rheumatology [facility] [address] [place] [address] Mario Dover PA-C [address] [place] [address] Health Maintenance Due Date Last Done Comments CKD PHOS USE SMARTSET 71010 1955 Carrington's Esophagus Surveilance 04/03/2021 04/03/2018, 04/03/2018, 04/01/2015, Additional history exists *BISPHONATE OR OTHER ACCEPTABLE MEDICATION NEEDED FOR OSTEOPOROSIS (REFER TO SMARTSET #1146) 12/30/2023 Influenza Vaccine (FLU shot) (#1) 2024 06/15/2023, 06/16/2022, 06/16/2021, Additional history exists Albumin/Creatinine Ratio 07/29/2024 07/29/2023, 05/10 DXA Scan 11/10/2024 11/10/2022, 11/10/2022 Depression Screening 01/26/2025 01/27/2024 CKD HGB USE SMARTSET 72444 02/09/202502/09, 02/10/2024, 12/16/2023, Additional history exists DTaP,Tdap,and Td Vaccines (3 - Td or Tdap) 06/30/2032 06/30/2022, 10/30/2012 Pneumococcal Vaccine: 65+ Years Completed 07/25/2015, 10/10/2002 Zoster Vaccines Completed 09/26/2019, 06/10, 10/10/2009 VITAMIN D LEVEL ONCE IN A LIFETIME-USE SMARTSET# [id number] Completed 12/16/2023, 12/17/2022 COVID-19 Vaccine Completed 12/24/2023, [...] filedocumented as of this encounter Care Teams Ammonia Box Tender Relationship Specialty Start Date End Date Amos Pastrana MD [address] [facility] [place] [address] PCP - General Family Medicine 04/28/24 documented as of this encounter
--- OUTSIDE RECORDS SUMMARY | 2024-10-05 12:38 | External Medical Summary | Summary of Care ---
Author Name Unknown Organization [facility] Address [address] [place] [address] Phone [phone] Care Team Providers Care It Communications Specialist Name Role Phone Amos Pastrana MD Primary Care Provider + Reason for Visit * Reason Comments Medication Management Encounter Details Date Type Department Care Team (Late st Contact Info) Description 05/07/2024 9:00 AM EDT Pharmacy Pharmacy Hematology Oncology [facility] [address] [place] [address] Gm, [facility] Hem/Onc [address] [place], [place] [id number] CLL (chronic lymphocytic leukemia) ([facility])* Allergies Active Allergy Reactions Criticality [...] as of this encounter (statuses as of 05/07/2024) Medications Medication Sig Dispensed Refills Start Date [...] Oral Capsule (Imbruvica)Indicat ions:CLL (chronic lymphocytic leukemia) ([facility]) TAKE 3 CAPSULES BY MOUTH IN THE MORNING. TAKE MEDICATION AT SAME TIME EVERY DAY 90 Capsule 5 10/11/2023 10/10/2024 Active Losartan Potassium 50 MG Oral Tablet (Cozaar) Take 1 Tablet by mouth in the morning. 30 Tablet 5 11/11/2023 Active predniSONE 5 MG Oral Tablet (Deltasone)Indicat ions:PMR (polymyalgia rheumatica) ([facility]) Take 1 Tablet by mouth in the morning. 90 Tablet 3 11/29/2023 Active Metoprolol Succinate ER 25 MG Oral Tablet Extended Release 24 Hour (toPROL XL)Indications:Par oxysmal atrial fibrillation ([facility]),Cardiac pacemaker [...] as of this encounter (statuses as of 05/07/2024) Active Problems Problem Noted Date Diagnosed Date [...] 11/30/2013 Lung nodule 10/30/2012 Overview: RLL. Stable [id number]. 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 Consider lulu 5y. 03/24- EGD-stage C0-M1 per [place] criteria. No dysplasia. REC LULU 03/2018 Other specified glaucoma Generalized osteoarthritis Irritable bowel syndrome documented as of this encounter (statuses as of 05/07/2024) Resolved Problems Problem Noted Date Diagnosed Date [...] . 10/28 4.6 thror aneurysm on [facility]--TTE orderd for 6mo 2017-f [facility] [place] copy on file 01/24 colon-WNL 01/22 ACC risk 24% declined statin. 11/23 PFTs WNL 06/22 colonoscopy WNL. +int hemorrhoids, divertic. 12/20 fell on ice-UOC rec tendon repair knee 10/22 pt declined prostate screen Bradycardia 10/30/2012 01/07/2020 Dyslipidemia 10/05/2021 Rotator cuff injury 04/28/20 17 Overview: right documented as of this encounter (statuses as of 05/07/2024) Immunizations Name Administration Dates Next Due COVID-19 [...] No 10/18/2023 Does the household have a [facility] hospital[facility] source of income? (Household - for [...] as of this encounter Progress Notes * Laura Harman, JIMENEZ - 05/07/2024 9:00 AM EDT MEDICATION THERAPY MANAGEMENT IBRUTINIB (IMBRUVICA) TREATMENT PROGRESS NOTE Marv Fragoso (Bob) [id number] Patient Phone Numbers Communication: Left message Current Treatment: Medication: Ibrutinib (Imbruvica) Indication: CLL Dose: 420mg (3x 140mg cap) daily Administration: +/- food with a full glass of water Start Date: 05/07/2020 Primary Mechanical Apprentice: Dr. Lucie Penaloza Patient due for q2mo cbcd, cmp, ld, uric acid. Message left for patient today. JIMENEZ Velez Ham Doctor Pharmacy Hematology Oncology Oral Chemotherapy Clinic Medication Therapy Disease Management [facility] 05/07/24 10:05 AM Time Spent on Encounter: < 5 [...] Pharmacy Hematology Oncology [facility] [address] [place] [address] [facility], [facility] Hem/Onc [address] [place] [address] 06/05/2024 3:15 PM EDT Office Visit Hematology/Oncology [facility] [address] [facility] [place] [phone] Jesus Penaloza MD [address] [place] [address] 06/05/2024 3:45 PM EDT Immunization/Inject ion Hematology/Oncology Treatment, [place] [address] [facility] [address] [place] [phone] 11/06/2024 10:30 AM EST Office Visit Cardiology, [facility] [address] [facility] [place] [address] Quyen Connolly CRNP [address] [facility] [place] [phone] 11/15/2024 10:30 AM EST Office Visit Rheumatology [address] [place] [address] Mario Dover PA-C [address] [place] [address] Health Maintenance Due Date Last Done Comments CKD PHOS USE SMARTSET 92224 1953 Carrington's Esophagus Surveilance 04/03/2021 04/03/2018, 04/03/2018, 04/01/2015, Additional history exists *BISPHONATE OR OTHER ACCEPTABLE MEDICATION NEEDED FOR OSTEOPOROSIS (REFER TO SMARTSET #1146) 12/30/2023 Influenza Vaccine (FLU shot) (#1) 2024 06/15/2023, 06/16/2022, 06/16/2021, Additional history exists Albumin/Creatinine Ratio 07/29/2024 07/29/2023, 05/10 DXA Scan 11/10/2024 11/10/2022, 11/10/2022 Depression Screening 01/26/2025 01/27/2024 CKD HGB USE SMARTSET 63233 02/09/202502/09, 02/10/2024, 12/16/2023, Additional history exists DTaP,Tdap,and Td Vaccines (3 - Td or Tdap) 06/30/2032 06/30/2022, 10/30/2012 Pneumococcal Vaccine: 65+ Years Completed 07/25/2015, 10/10/2002 Zoster Vaccines Completed 09/26/2019, 06/10, 10/10/2009 VITAMIN D LEVEL ONCE IN A LIFETIME-USE SMARTSET# 33852 Completed 12/16/2023, 12/17/2022 COVID-19 Vaccine Completed 12/24/2023, [...] remission documented in this encounter Care Teams It Communications Specialist Relationship Specialty Start Date End Date Amos Pastrana MD [address] [place] [address] PCP - General Family Medicine 04/28/24 documented as of this encounter
--- OUTSIDE RECORDS SUMMARY | 2024-10-05 12:38 | External Medical Summary | Summary of Care ---
Author Name Unknown Organization [facility] Address [address] [place] [address] Phone [phone] Care Team Providers Care Field Crop Harvest Contractor Name Role Phone Amos Lopez MD Primary Care Provider + Reason for Visit * Reason Onset Date Comments Medication Refill 05/06/2024 Encounter Details Date Type Department Care Team (Late st Contact Info) Description 05/06/[address] [facility] [address] [place] [address] Amos Lopez MD [address] [place] [address] Chronic kidney disease, stage 3a (HCC)*; Carrington's esophagus Allergies Active Allergy Reactions Criticality [...] Oral Capsule (Imbruvica)Indica tions:CLL (chronic lymphocytic leukemia) ([facility]) TAKE 3 CAPSULES BY MOUTH IN THE MORNING. TAKE MEDICATION AT SAME TIME EVERY DAY 90 Capsule 5 10/11/2023 5 Active Losartan Potassium 50 MG Oral Tablet (Cozaar) Take 1 Tablet by mouth in the morning. 30 Tablet 5 11/11/2023 Active predniSONE 5 MG Oral Tablet (Deltasone)Indica tions:PMR (polymyalgia rheumatica) ([facility]) Take 1 Tablet by mouth in the morning. 90 Tablet 3 11/29/2023 Active Metoprolol Succinate ER 25 MG Oral Tablet Extended Release 24 Hour (toPROL XL)Indications:Pa roxysmal atrial fibrillation ([facility]),Cardiac [...] before bedtime. 180 Capsule 2 05/07/2024 Active Omeprazole 40 MG Oral Capsule Delayed Release (PriLOSEC)Indicat ions:Carrington's esophagus take 1 capsule by mouth twice a day 180 Capsule 3 03/31/2023 4 Discontinue d(Refill) documented as of this [...] 11/30/2013 Lung nodule 10/30/2012 Overview: RLL. Stable [id number]. 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 Consider lulu 5y. 03/24- EGD-stage C0-M1 per [place] criteria. No dysplasia. 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 on [facility]--TTE orderd for 6mo 2017-f [...] encounter Miscellaneous Notes * Telephone Encounter - Ayaka Jarquin, [facility] - 05/07/2024 2:45 PM EDTSigned Prescriptions: Disp Refills Omeprazole 40 MG Oral Capsule Delayed Rele*180 Ca*2 Sig: Take 1 Capsule by mouth in the morning and 1 Capsule before bedtime.Authorizing Provider: AMOS LOPEZ User: AYAKA JARQUIN * Telephone Encounter - Ayaka Jarquin RP - 05/07/2024 2:45 PM EDT Per refill protocol patient needs magnesium lab on file within the past 2 years while using PPIs. Lab work ordered. Patient may obtain with next routine labs. Thank you, Ayaka Jarquin, PharmD Clinical Pharmacist [facility] ([facility]) 05/07/24 2:45 PM [phone] documented in this encounter Plan of Treatment Upcoming Encounters Date Type Department Care Team (Late st Contact Info) Description 05/14/2024 9:00 AM EDT Pharmacy Pharmacy Hematology Oncology [address] [address] [facility], [facility] Hem/Onc [facility] [place] [address] 06/05/2024 3:15 PM EDT Office Visit Hematology/Oncology [facility] [address] [place] [address] Jesus Penaloza MD [address] [facility] [place] [address] 06/05/2024 3:45 PM EDT Immunization/Inject ion [facility]ematology[facility], [place] [facility] [address] 11/06/2024 10:30 AM EST Office Visit Cardiology, [facility] 132 [facility] [place] [address] Quyen Connolly CRNP [address] [place] [address] 11/15/2024 10:30 AM EST Office Visit Rheumatology [facility] [address] [place] [address] Mario Dover PA-C [address] [place] [address] Scheduled Orders Name Type Priority Associated Diagnoses Orde r Schedule ALBUMIN / CREATININE RATIO, URINE Lab Routine Chronic kidney disease, stage 3a (HCC) Expected: 05/07/2024, Expires: 05/07/2025 MAGNESIUM Lab Routine Carrington's esophagus Expected: 05/14/2024 (Approximate), Expires: 05/07/2025 Health Maintenance Due Date Last Done Comments CKD PHOS USE SMARTSET 72082 1953 Carrington's Esophagus Surveilance 04/03/2021 04/03/2018, 04/03/2018, 04/01/2015, Additional history exists *BISPHONATE OR OTHER ACCEPTABLE MEDICATION NEEDED FOR OSTEOPOROSIS (REFER TO SMARTSET #1146) 12/30/2023 Influenza Vaccine (FLU shot) (#1) 2024 06/15/2023, 06/16/2022, 06/16/2021, Additional history exists Albumin/Creatinine Ratio 07/29/2024 07/29/2023, 05/10 DXA Scan 11/10/2024 11/10/2022, 11/10/2022 Depression Screening 01/26/2025 01/27/2024 CKD HGB USE SMARTSET 62712 02/09/202502/09, 02/10/2024, 12/16/2023, Additional history exists DTaP,Tdap,and Td Vaccines (3 - Td or Tdap) 06/30/2032 06/30/2022, 10/30/2012 Pneumococcal Vaccine: 65+ Years Completed 07/25/2015, 10/10/2002 Zoster Vaccines Completed 09/26/2019, 06/10, 10/10/2009 VITAMIN D LEVEL ONCE IN A LIFETIME-USE SMARTSET# [id number] Completed 12/16/2023, 12/17/2022 COVID-19 Vaccine Completed 12/24/2023, [...] as of this encounter Visit Diagnoses Diagnosis Chronic kidney disease, stage 3a (HCC)- Primary Carrington's esophagus documented in this encounter Care Teams Field Crop Harvest Contractor Relationship Specialty Start Date End Date Amos Lopez MD [address] [place] [address] PCP - General Family Medicine 04/28/24 documented as of this encounter
--- OUTSIDE RECORDS SUMMARY | 2024-10-05 12:38 | External Medical Summary | Summary of Care ---
Author Name Unknown Organization [facility] Address [address] [place] [address] Phone [phone] Care Team Providers Care Real Estate Acquisition Analyst Name Role Phone Amos Pastrana MD Primary Care Provider + Reason for Visit * Reason Comments Medication Administration Vitamin B12 Encounter Details Date Type Department Care Team (Late st Contact Info) Description 05/04/2024 11:30 AM EDT Immunization/I njection Hematology/Oncology Treatment, [address] [address] [place], Chair [address] On[address] [address] Vitamin B12 deficiency (dietary) anemia* Allergies Active [...] as of this encounter (statuses as of 05/04/2024) Medications Medication Sig Dispensed Refills Start Date [...] Oral Capsule (Imbruvica)Indicat ions:CLL (chronic lymphocytic leukemia) ([facility]) TAKE 3 CAPSULES BY MOUTH IN THE MORNING. TAKE MEDICATION AT SAME TIME EVERY DAY 90 Capsule 5 10/11/2023 10/10/2024 Active Losartan Potassium 50 MG Oral Tablet (Cozaar) Take 1 Tablet by mouth in the morning. 30 Tablet 5 11/11/2023 Active predniSONE 5 MG Oral Tablet (Deltasone)Indicat ions:PMR (polymyalgia rheumatica) ([facility]) Take 1 Tablet by mouth in the morning. 90 Tablet 3 11/29/2023 Active Metoprolol Succinate ER 25 MG Oral Tablet Extended Release 24 Hour (toPROL XL)Indications:Par oxysmal atrial fibrillation ([facility]),Cardiac pacemaker [...] as of this encounter (statuses as of 05/04/2024) Active Problems Problem Noted Date Diagnosed Date [...] 11/30/2013 Lung nodule 10/30/2012 Overview: RLL. Stable [id number]. 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 Consider lulu 5y. 03/24- EGD-stage C0-M1 per [place] criteria. No dysplasia. REC LULU 03/2018 Other specified glaucoma Generalized osteoarthritis Irritable bowel syndrome documented as of this encounter (statuses as of 05/04/2024) Resolved Problems Problem Noted Date Diagnosed Date [...] . 10/28 4.6 thror aneurysm on [facility]--TTE orderd for 6mo 2017-f Living [place] copy on file 01/24 colon-WNL 01/22 ACC risk 24% declined statin. 11/23 PFTs WNL 06/22 colonoscopy WNL. +int hemorrhoids, divertic. 12/20 fell on ice-UOC rec tendon repair knee 10/22 pt declined prostate screen Bradycardia 10/30/2012 01/07/2020 Dyslipidemia 10/05/2021 Rotator cuff injury 04/28/20 Overview: right documented as of this encounter (statuses as of 05/04/2024) Immunizations Name Administration Dates Next Due COVID-19 [...] No 10/18/2023 Does the household have a [facility] source of income? (Household - for [...] 9:00 AM EDT Pharmacy Pharmacy Hematology Oncology [address] [place] [address] [facility], [facility] Hem/Onc [address] [place] [address] 06/05/2024 3:15 PM EDT Office Visit Hematology/Oncology [facility] 200 [facility] [place] [phone] Jesus Penaloza MD 200 [facility] [place] [address] 06/05/2024 3:45 PM EDT Immunization/Inject ion Hematology/Oncology Treatment, [place] [facility] [phone] 11/06/2024 10:30 AM EST Office Visit Cardiology, [facility] 132 [facility] [place] [address] Quyen Connolly CRNP 400 [facility] [place] [address] 11/15/2024 10:30 AM EST Office Visit Rheumatology [facility] [address] [place], [place] [address] [place], [place] [address] Mario Dover PA-C [address] [place], [place] [address] Health Maintenance Due Date Last Done Comments CKD PHOS USE SMARTSET 13338 1953 Carrington's Esophagus Surveilance 04/03/2021 04/03/2018, 04/03/2018, 04/01/2015, Additional history exists *BISPHONATE OR OTHER ACCEPTABLE MEDICATION NEEDED FOR OSTEOPOROSIS (REFER TO SMARTSET #1146) 12/30/2023 Influenza Vaccine (FLU shot) (#1) 2024 06/15/2023, 06/16/2022, 06/16/2021, Additional history exists Albumin/Creatinine Ratio 07/29/2024 07/29/2023, 05/10 DXA Scan 11/10/2024 11/10/2022, 11/10/2022 Depression Screening 01/26/2025 01/27/2024 CKD HGB USE SMARTSET 02437 02/09/202502/09, 02/10/2024, 12/16/2023, Additional history exists DTaP,Tdap,and Td Vaccines (3 - Td or Tdap) 06/30/2032 06/30/2022, 10/30/2012 Pneumococcal Vaccine: 65+ Years Completed 07/25/2015, 10/10/2002 Zoster Vaccines Completed 09/26/2019, 06/10, 10/10/2009 VITAMIN D LEVEL ONCE IN A LIFETIME-USE SMARTSET# [id number] Completed 12/16/2023, 12/17/2022 COVID-19 Vaccine Completed 12/24/2023, [...] Upper documented in this encounter Care Teams Real Estate Acquisition Analyst Relationship Specialty Start Date End Date Amos Pastrana MD [address] [place] [address] PCP - General Family Medicine 04/28/24 documented as of this encounter
--- OUTSIDE RECORDS SUMMARY | 2024-10-05 12:38 | External Medical Summary | Summary of Care ---
Author Name Unknown Organization [facility] Address [address] [place] [address] Phone [phone] Care Team Providers Care Machine Milker Name Role Phone Amos Pastrana MD Primary Care Provider + Reason for Visit * Reason Comments Medication Management Encounter Details Date Type Department Care Team (Late st Contact Info) Description 05/07/2024 9:00 AM EDT Pharmacy Pharmacy Hematology Oncology [facility] [address] [place] [address] [facility], [facility] Hem/Onc [address] [place], [place] [id number] CLL (chronic lymphocytic leukemia) ([facility])* Allergies Active Allergy Reactions [...] Oral Capsule (Imbruvica)Indicat ions:CLL (chronic lymphocytic leukemia) ([facility]) TAKE 3 CAPSULES BY MOUTH IN THE MORNING. TAKE MEDICATION AT SAME TIME EVERY DAY 90 Capsule 5 10/11/2023 10/10/2024 Active Losartan Potassium 50 MG Oral Tablet (Cozaar) Take 1 Tablet by mouth in the morning. 30 Tablet 5 11/11/2023 Active predniSONE 5 MG Oral Tablet (Deltasone)Indicat ions:PMR (polymyalgia rheumatica) ([facility]) Take 1 Tablet by mouth in the morning. 90 Tablet 3 11/29/2023 Active Metoprolol Succinate ER 25 MG Oral Tablet Extended Release 24 Hour (toPROL XL)Indications:Par oxysmal atrial fibrillation ([facility]),Cardiac pacemaker [...] 11/30/2013 Lung nodule 10/30/2012 Overview: RLL. Stable [id number]. 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 Consider lulu 5y. 03/24- EGD-stage C0-M1 per [place] criteria. No dysplasia. REC LULU 03/2018 Other [...] . 10/28 4.6 thror aneurysm on [facility]--TTE orderd for 6mo 2017-f Living [...] No 10/18/2023 Does the household have a [facility] source of income? (Household - for ages [...] (IMBRUVICA) TREATMENT PROGRESS NOTE Marv Fragoso (Bob) [phone] Patient Phone Numbers Communication: Left message and spoke with patient Current Treatment: Medication: Ibrutinib (Imbruvica) Indication: CLL Dose: 420mg (3x 140mg cap) daily Administration: +/- food with a full glass of water Start Date: 05/07/2020 Primary Dredge Lever Operator: Dr. Lucie Penaloza Patient due for q2mo cbcd, cmp, ld, uric acid. Message left for patient today. Patient called back. Patient can go for labs Tuesday this week. Patient also mentioned that he was off the Imbruvica for 2 months due to having a pacemaker put in, and resumed Imbruvica a few weeks ago. JIMENEZ Velez Land Title Examiner Pharmacy Hematology Oncology Oral Chemotherapy Clinic Medication Therapy Disease Management [facility] 05/07/24 10:05 AM Time Spent on Encounter: [...] [facility] [address] [place] [address] [facility] Hem[facility]Onc [address] [place] [address] 06/05/2024 3:15 PM EDT Office Visit Hematology[facility] [address] [facility] [place] [phone] Jesus [facility]aloza [facility] [address] [facility] [address] 06/05/2024 3:45 PM EDT Immunization/Inject ion [facility]ematology[facility], [place] [facility] [phone] 11/06/2024 10:30 AM EST Office Visit Cardiology, [facility] [address] [facility] [place] [address] Quyen Connolly CRNP [address] [place] [address] [place] [phone] 11/15/2024 10:30 AM EST Office Visit Rheumatology [facility] [address] [place] [address] Mario Dover PA-C [address] [place] [address] Health Maintenance Due Date Last Done Comments CKD PHOS USE SMARTSET 12561 1955 Carrington's Esophagus Surveilance 04/03/2021 04/03/2018, 04/03/2018, 04/01/2015, Additional history exists *BISPHONATE OR OTHER ACCEPTABLE MEDICATION NEEDED FOR OSTEOPOROSIS (REFER TO SMARTSET #1146) 12/30/2023 Influenza Vaccine (FLU shot) (#1) 2024 06/15/2023, 06/16/2022, 06/16/2021, Additional history exists Albumin/Creatinine Ratio 07/29/2024 07/29/2023, 05/10 DXA Scan 11/10/2024 11/10/2022, 11/10/2022 Depression Screening 01/26/2025 01/27/2024 CKD HGB USE SMARTSET 50573 02/09/202502/09, 02/10/2024, 12/16/2023, Additional history exists DTaP,Tdap,and Td Vaccines (3 - Td or Tdap) 06/30/2032 06/30/2022, 10/30/2012 Pneumococcal Vaccine: 65+ Years Completed 07/25/2015, 10/10/2002 Zoster Vaccines Completed 09/26/2019, 06/10, 10/10/2009 VITAMIN D LEVEL ONCE IN A LIFETIME-USE SMARTSET# [id number] Completed 12/16/2023, 12/17/2022 COVID-19 Vaccine Completed 12/24/2023, [...] remission documented in this encounter Care Teams Machine Milker Relationship Specialty Start Date End Date Amos Pastrana MD [address] [place] [address] PCP - General Family Medicine 04/28/24 documented as of this encounter
[2024-10-05] MEDS ORDERED: POLYETHYLENE (MIRALAX) 17 GM PACK PO PRN (12:49)
[2024-10-05] MEDS ORDERED: ACETAMINOPHEN 325 MG TAB PO PRN (12:49)
[2024-10-05 13:51] LABS: C Reactive Protein 7.52 mg/dl (0-0.5); Uric Acid 5.6 mg/dl (2.6-7.2)
--- NOTE | 2024-10-05 14:14 | XRay Report ---
XR foot RT min 3V routine HISTORY: 89 years-old Male Right foot swelling COMPARISON: None TECHNIQUE: 3 views of the right foot FINDINGS: Moderate diffuse soft tissue swelling. Mild spurring of the calcaneus with mild multifocal osteoarthr itis and arterial calcifications. No acute fracture, dislocation, osseous erosion or radiopaque forei gn body. IMPRESSION: Soft tissue swelling without acute osseous abnormality. ACT 112: Negative or not required by law. The above report was generated using voice recognition software. It may contain grammatical, syntax o r spelling errors. Electronically signed by: Roman Royal M.D. 10/05/2024 2:12 PM
[2024-10-05] MEDS: predniSONE 5 MG TAB PO ONE (14:40)
[2024-10-05] MEDS: APIXABAN 2.5 MG TAB PO ONE (14:41)
--- NOTE | 2024-10-05 15:55 | Electrocardiogram Report ---
Test Reason : Blood Pressure : */* mmHG Vent. Rate : 80 BPM Atrial Rate : * BPM P-R Int : * ms QRS Dur : 118 ms QT Int : 396 ms P-R-T Axes : * 16 -30 degrees QTcB Int : 456 ms Atrial fibrillation with occasional ventricular-paced complexes Incomplete right bundle branch block Nonspecific ST abnormality Abnormal ECG When compared with ECG of 29-Apr-2024 07:49, Electronic ventricular pacemaker has replaced Electronic atrial pacemaker Confirmed by Jamey Bedolla ([id number]) on 10/05/2024 3:54:40 PM Referred By: REFERRED SELF Confirmed By: Jamey Bedolla
--- NOTE | 2024-10-05 16:13 | Ultrasound Report ---
EXAM: US Duplex Right Lower Extremity Veins INDICATION: Swelling. TECHNIQUE: Real-time duplex ultrasound scan of the right lower extremity veins integrating B-mode two-dimensional vascular structure, Doppler spectral analysis, color flow Doppler imaging and compression. COMPARISON: No relevant prior studies available. FINDINGS: Deep veins: No DVT in the visualized common femoral, femoral or popliteal veins. The veins demonstrate normal color flow, are normally compressible, with normal phasic flow and/or augmentation response. Superficial veins: No abnormality noted. No thrombus in the visualized great saphenous vein. Soft tissues: No abnormality noted. IMPRESSION: No deep venous thrombosis of the right lower extremity. ACT 112: Negative or not required by law. Electronically signed by Keerthi Alcala 10-05-2024 4:12 PM
[2024-10-05] MEDS: SODIUM CHLORIDE 0.9% 1,000 ML IV SCH (16:35)
--- OUTSIDE RECORDS SUMMARY | 2024-10-05 17:33 | External Medical Summary | Summary of Care ---
Author Name Unknown Organization [facility] Address [address] [place] [address] Phone [phone] Care Team Providers Care Sys Dir Name Role Phone Amos Pastrana MD Primary Care Provider + Reason for Visit * Reason Onset Date Comments FYI 10/05/2024 Encounter Details Date Type Department Care Team (Late st Contact Info) Description 10/05/2024 Telephone Family Practice [facility] [address] [place] [address] Amos Pastrana MD [address] [place] [id number] FYI Allergies Active Allergy Reactions Criticality Noted Date [...] as of this encounter (statuses as of 10/05/2024) Medications KENYA 0.2-0.5 % OP SOLN Instill 1 Drop into the right eye in the morning and 1 Drop before bedtime. Active Centrum Adults Oral Tablet 1 tab daily 1 Tablet 3 Active predniSONE 5 MG Oral Tablet (Deltasone)Indicat ions:PMR (polymyalgia rheumatica) ([facility]) Take 1 Tablet by mouth in the morning. 90 Tablet 3 4 Active Metoprolol Succinate ER 25 MG Oral Tablet Extended Release 24 Hour (toPROL XL)Indications:Par oxysmal atrial fibrillation ([facility]),Cardiac pacemaker in situ,SSS (sick sinus syndrome) ([facility]),RBBB (right bundle branch block),HTN, goal below 140/90 Take 1 Tablet by mouth in the morning and 1 Tablet before bedtime. 180 Tablet 3 4 Active Ibrutinib 140 MG Oral Capsule (Imbruvica)Indicat ions:CLL (chronic lymphocytic leukemia) ([facility]) TAKE 3 CAPSULES BY MOUTH IN THE MORNING. TAKE MEDICATION AT SAME TIME EVERY DAY 90 Capsule 5 09/26/2024 2:49 PM EST 4 025 Active hydroCHLOROthiazid e 12.5 MG Oral CapsuleIndications [...] 4 Active predniSONE 20 MG Oral Tablet (Deltasone)Indicat ions:PMR (polymyalgia rheumatica) (HCC),Generalized osteoarthritis One daily 15 Tablet 4 Active documented as of this encounter (statuses as of 10/05/2024) Active Problems Problem Noted Date Diagnosed Date [...] Lung nodule 10/30/2012 Overview (10/22/2018): RLL. Stable [id number]. 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 Consider lulu 5y. 03/24- EGD-stage C0-M1 per [place] criteria. No dysplasia. REC LULU 03/2018 Other specified glaucoma Generalized osteoarthritis Irritable bowel syndrome documented as of this encounter (statuses as of 10/05/2024) Resolved Problems Problem Noted Date Diagnosed Date [...] Thoracic . 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 11/23 PFTs WNL 06/22 colonoscopy WNL. +int hemorrhoids, divertic. 12/20 fell on ice-UOC rec tendon repair knee 10/22 pt declined prostate screen Bradycardia 10/30/2012 01/07/2020 Dyslipidemia 10/05/2021 Rotator cuff injury 04/28/20 17 Overview (09/06/2012): right documented as of this encounter (statuses as of 10/05/2024) Immunizations Name Administration Dates Next Due COVID-19 mRNA, LNP-s, No Pre serve, 2-Dose Series (Moderna) 11/19/2021,05/25/2021,12/09/2020,11/04 COVID-19, MRNA-LNP, 24-25, P R, 30MCG/0.3ML, IM, 12YRS AND ABOVE (Avance PayirZeOmega) 06/12/2024 COVID-19, MRNA-LNP, PF, 30 M CG/0.3 mL, 12 YRS AND ABOVE, IM ([employer]-Comirnaty) 07/02/2023 COVID-19, MRNA-LNP, PF, 50 M CG/0.5 mL, 12 YRS AND ABOVE, IM ([employer] HoldingsA-Spikevax) 12/24/2023 Covid-19, Mrna, Lnp-s, Pf, B ivalent, 30 Mcg, IM, 12 yrs and above (CONSTRVCT) 02/24/2023,07/01/2022 Pneumococcal Conjugate Vacc, 13 Valent (Prevnar) [...] encounter Miscellaneous Notes * Telephone Encounter - Gloria Santamaria LPN - 10/05/2024 9:40 AM EST Noted for PCP * Telephone Encounter - Christelle Ward OSA - 10/05/2024 9:38 AM EST Fyi patients Macie called stating pt is on his way to [facility] via ambulance secondary to weakness, syncope episode. documented in this encounter Plan of Treatment Upcoming Encounters Date Type Department Care Team (Late st Contact Info) Description 10/23/2024 11:15 AM EST Immunization/Injecti on Hematology/Oncology Treatment, [place] [address] [facility] [address] [place] [phone] 11/06/2024 10:30 AM EST Office Visit Cardiology, [facility] [address] [facility] [place] [address] Quyen Connolly CRNP [address] [place] [address] [place] [address] 11/15/2024 10:30 AM EST Office Visit Rheumatology [place] [phone] [facility] [place] [address] Mario Dover PA-C [address] [place] [address] 12/04/2024 2:00 PM EST Laboratory Laboratory [facility] [address] [facility] [place] [phone] [address] [facility] [address] [facility] [place] [address] 12/11/2024 2:00 PM EST Office Visit Hematology/Oncology [facility] [place] [address] [place] [phone] Jesus Penaloza MD [address] [facility] [place] [address] 02/11/2025 9:00 AM EDT Pharmacy Pharmacy Hematology Oncology [facility] [address] [place] [address] [facility] Hem/Onc [address] [place] [address] 05/15/2025 12:00 PM EDT Office Visit Family Practice [facility] [address] [place] [address] Amos Pastrana MD [address] [place] [address] Health Maintenance Due Date Last Done Comments [...] Screening 01/26/2025 01/27/2024 CKD PHOS USE SMARTSET 43162 07/10/2025 07/10/2024 CKD HGB USE SMARTSET 50486 09/17/202509/17, 09/17/2024, 09/11/2024, Additional history exists DTap/Tdap Vaccines (3 - Td or Tdap) 06/30/2032 06/30/2022, 10/30/2012 Pneumococcal Vaccine: 50+ Years Completed 07/25/2015, 10/10/2002 Zoster Vaccines Completed 09/26/2019, 06/10, 10/10/2009 Influenza Vaccine (FLU shot) Completed 12/2023, 06/15/2023, 06/16/2022, Additional history exists VITAMIN D LEVEL ONCE IN A LIFETIME-USE SMARTSET# [id number] Completed 09/17/2024, 12/16/2023, 12/17/2022 HPV (Gardasil) Vaccine [...] filedocumented as of this encounter Care Teams Sys Dir Relationship Specialty Start Date End Date Amos Pastrana MD [address] [place] [address] PCP - General Family Medicine 04/28/24 documented as of this encounter
--- NOTE | 2024-10-05 17:58 | Ultrasound Report ---
EXAM: US Duplex Bilateral Extracranial Arteries INDICATION: Syncope. TECHNIQUE: Real-time duplex ultrasound scan of the extracranial arteries integrating B-mode two-dimensional vascular structure, Doppler spectral analysis and color flow Doppler imaging. COMPARISON: No relevant prior studies available. FINDINGS: Right common carotid artery: Peak systolic velocity 57 cm/s. No occlusion or segmental stenosis on color flow and spectral Doppler imaging. Right internal carotid artery: Peak systolic velocity 58 cm/s. There is mild intimal thickening at the bulb. No occlusion or segmental stenosis on color flow and spectral Doppler imaging. Right external carotid artery: No abnormality noted. No occlusion or segmental stenosis on color flow and spectral Doppler imaging. Right vertebral artery: No abnormality noted. Antegrade flow. Right ICA/CCA ratio: 1.0 Within normal limits. Left common carotid artery: Peak systolic velocity 50 cm/s d. No occlusion or segmental stenosis on color flow and spectral Doppler imaging. Left internal carotid artery: Peak systolic velocity 52 cm/s. Minimal intimal thickening noted at the bulb. No occlusion or segmental stenosis on color flow and spectral Doppler imaging. Left external carotid artery: No abnormality noted. No occlusion or segmental stenosis on color flow and spectral Doppler imaging. Left vertebral artery: No abnormality noted. Antegrade flow. Left ICA/CCA ratio: 1.0 within normal limits. Lymph nodes: No abnormality noted. No lymphadenopathy. CAROTID STENOSIS REFERENCE USING SRU CRITERIA: Mild - <50% stenosis. ICA PSV is less than 125 cm/second and plaque or intimal thickening is visible. Moderate - 50-69% stenosis. ICA PSV is 125 to 230 cm/second and plaque is visible. Severe - 70-94% stenosis. ICA PSV is more than 230 cm/second and visible plaque with lumen narrowing is seen. Near occlusion - 95-99% stenosis. ICA PSV is variable and significant plaque with luminal narrowing is seen. Occluded - 100% stenosis. No flow identified. IMPRESSION: There is no hemodynamically significant carotid stenosis. ACT 112: Negative or not required by law. Electronically signed by Keerthi Alcala 10-05-2024 5:57 PM
[2024-10-05] MEDS: APIXABAN 2.5 MG TAB PO SCH (23:16)
[2024-10-05] MEDS: MELATONIN 3 MG TAB PO PRN (23:16)
[2024-10-05] MEDS: PANTOprazole 40 MG TAB PO SCH (23:16)
[2024-10-05] MEDS: METOPROLOL SUCC 25MG EXT REL TAB PO SCH (23:16)
[2024-10-05] MEDS: TIMOLOL MALEATE 0.5% OP SOLN 5 ML BTL OP SCH (23:17)
[2024-10-05] MEDS: BRIMONIDINE TARTRATE 0.2% 5ML OP SCH (23:21)
[2024-10-06 07:56] LABS: Basophils # (auto) 0.03 K/uL (0.00-0.20); Basophils % (auto) 0.2 %; Eosinophils # (auto) 0.01 K/uL (0.00-0.50); Eosinophils % (auto) 0.1 %; Hematocrit (blood only) 29.6 % (42.0-52.0); Hemoglobin 9.9 g/dl (14.0-18.0); Immature Granulocytes # (auto) 0.21 K/uL (0.01-0.20); Immature Granulocytes % (auto) 1.4 %; Lymphocytes # (auto) 2.58 K/uL (1.20-3.40); Lymphocytes % (auto) 17.1 %; Mean Corpuscular Hgb Conc 33.4 g/dL (32.0-36.0); Mean Corpuscular Volume 95.8 fL (80.0-100.0); Mean Platelet Volume 10.1 fL (9.4-12.4); Monocytes # (auto) 1.18 K/uL (0.11-0.59); Monocytes % (auto) 7.8 %; Neutrophils # (auto) 11.04 K/uL (1.40-6.50); Neutrophils % (auto) 73.4 %; Platelet Count 250 K/uL (130-400); RDW Coefficient of Variation 13.2 % (11.5-14.5); RDW Standard Deviation 46.5 fL (36.4-46.3); Red Blood Count 3.09 M/uL (4.70-6.10); White Blood Count 15.05 K/ul (4.8-10.8)
[2024-10-06 08:43] LABS: Calcium 7.9 mg/dl (8.6-10.3)
[2024-10-06 08:48] LABS: BUN Creatinine Ratio 18.6 (10-20); Creatinine Clr Calc Pharmacy 51.9 ml/min
[2024-10-06] MEDS: predniSONE 20 MG TAB PO SCH (10:06)
[2024-10-06] MEDS: FERROUS SULFATE 325 MG TAB PO SCH (10:06)
[2024-10-06] MEDS ORDERED: IBRUTINIB PO SCH (10:15)
[2024-10-06] MEDS: ATORVASTATIN 20 MG TAB PO SCH (10:34)
[2024-10-06] MEDS: IBRUTINIB PO SCH (10:35)
[2024-10-06 11:21] VITALS: RESP 17; TEMP 96.8; O2SAT 98
--- NOTE | 2024-10-06 11:42 | Electrocardiogram Report ---
Test Reason : Blood Pressure : */* mmHG Vent. Rate : 73 BPM Atrial Rate : 75 BPM P-R Int : * ms QRS Dur : 124 ms QT Int : 418 ms P-R-T Axes : * 49 -63 degrees QTcB Int : 460 ms Atrial fibrillation with occasional ventricular-paced complexes Right bundle branch block T wave abnormality, consider inferior ischemia Abnormal ECG When compared with ECG of 05-Oct-2024 09:59, Vent. rate has decreased by 7 bpm Confirmed by Maribell Cruz ([id number]) on 10/06/2024 11:42:04 AM Referred By: REFERRED SELF Confirmed By: Maribell Cruz
--- NOTE | 2024-10-06 12:57 | Discharge Summary ---
Date of Service October 06, 2024 Admission HPI Per Admitting Provider Patient is 89 year old male with PMH HTN, dyslipidemia, CKD III, PMR on chronic prednisone, PAF anticoagulated on Eliquis, SSS s/p pacemaker 02/2024, RBBB, CLL on Imbruvica, Carrington's esophagus, IBS presented to ER with c/o syncope today. Per outpatient chart review end of July 2024 started with fatigue and on 08/08/24 seen at urgent care for erythema migrans rash to left posterior shoulder and was started on doxycycline x 10 day course. 08/10/24 saw PCP who prescribed additional 4 day course to complete 14 day course. He reports finished course and rash and fatigue seemed to improve. Patient states approximately 2 weeks ago started with nasal congestion and cough. Reports cough productive green. He was taking Mucinex, Tylenol, Robitussin and states he is overall improved and symptoms almost resolved and just has some mild linger cough. Denies any SOB or wheezing, fever/chills. States approximately 3 weeks ago started with left hand swelling. Denies any redness or warmth or any known injury. C/O pain to left wrist and entire right hand and hand swelling became very severe. 09/11/24: Uric acid WNL. On 09/27/24 seen at PCP office and started on prednisone 20mg daily x 5 days per chart review. 10/02/24 LUE venous doppler negative for DVT and negative for superficial thrombophlebitis. He states yesterday left hand swelling seemed to greatly decrease and hand is no longer painful. Today reports just trace left hand swelling. He is back on his chronic prednisone 5mg daily. Last night started with right foot swelling and discomfort. Denies erythema, warmth. Denies any known injury. Patient reports woke up several times in the night to urinate and when he ambulated he had pain to his right foot. Has chronic nocturia and denies any change. He states he does have some lightheaded sensation with standing up out of bed sometimes. States this morning woke up and ambulated to bathroom. He denies feeling dizzy/lightheaded at that time and denies CP, SOB, REYES, vision changes. He states was having pain to right foot with ambulating. He reports making it to the bathroom and he attempted to sit on the toilet when he "passed out". His found him sitting half on the toilet and half off. reports he passed out for approximately 30 seconds. reports patient had another syncopal episode while still in bathroom, it is unclear if patient was attempting to stand from toilet at that time. Patient denies falling to the floor. Patient states currently he feels "fine". Patient feels he has been eating and drinking normally as he usually does. States drinks 4-6 large glasses water daily, one cup of coffee. His family feels he could be drinking more water. Patient reports had syncopal episode prior to his pacemaker placement but none since 02/2024. Denies fever/chills, diaphoresis, N/V/D/C, REYES, vision changes, neck pain, CP, SOB, orthopnea, palpitations, abdominal pain, paresthesias, other extremity edema, other rashes, dysuria, hematuria. Admission Exam Per Admitting Provider General: no acute distress, WDWN elderly male Head: normocephalic, atraumatic Eyes: PERRL, EOM's intact, conjunctiva non-injected, anicteric ENT: normal inspection external ears, nose, mucous membranes mildly dry Neck: supple, trachea midline Lungs: clear, no respiratory distress, no wheezing/rhonchi/rales CV: irregularly irregular, rate 86, +murmur Abd: normal BS, soft, non-tender Ext: no cyanosis, no calf tenderness; Left hand trace diffuse edema without erythema or warmth, ROM wrist and fingers intact and non-tender at this time. RUE: no edema or erythema and ROM intact. LLE: no edema or erythema and ROM intact. RLE: +edema to ankle and entire foot, no erythema or warmth, No ankle tenderness to palpation, no great digit tenderness to palpation, mild tenderness to palpation over 4-5 distal metatarsals, sensation to light touch intact. Neuro: A&O x 3, no focal deficits noted, normal affect Skin: warm, dry Principal Diagnosis Likely vasovagal syncope versus orthostatic hypotension Discharge Exam General: no acute distress, WDWN elderly male Head: normocephalic, atraumatic Eyes: PERRL, EOM's intact, conjunctiva non-injected, anicteric ENT: normal inspection external ears, nose, mucous membranes moist Neck: supple, trachea midline Lungs: clear, no respiratory distress, no wheezing/rhonchi/rales CV: irregularly irregular, rate 86, +murmur Abd: normal BS, soft, non-tender Ext: no cyanosis, no calf tenderness; Left hand trace diffuse edema without erythema or warmth, ROM wrist and fingers intact and non-tender at this time. RUE: no edema or erythema and ROM intact. LLE: no edema or erythema and ROM intact. RLE: +edema to ankle and entire foot, no erythema or warmth, No ankle tenderness to palpation, no great digit tenderness to palpation, mild tenderness to palpation over 4-5 distal metatarsals, sensation to light touch intact. Neuro: A&O x 3, no focal deficits noted, normal affect Skin: warm, dry Discharge Data Allergies Allergy/AdvReac Type Severity Reaction Status Date / Time lisinopril Allergy angioedema Verified 10/05/24 12:26 sulfamethoxazole Allergy angioedema Verified 10/05/24 12:26 [From Bactrim] trimethoprim [From Bactrim] Allergy angioedema Verified 10/05/24 12:26 sildenafil AdvReac Intermediate HEADACHE Verified 11/16/21 12:03 Consultations 10/05/24 12:14 ED Decision to Admit Stat Ordered Studies 10/05/24 10:06 CT head/brain wo con Stat 10/05/24 13:16 US venous doppler LE RT Urgent 10/05/24 13:19 US carotid doppler BI Routine Hospital Course (1) Syncope: Per prior attending with addendum: Patient is 89 year old male with PMH HTN, dyslipidemia, CKD III, PMR on chronic prednisone, PAF anticoagulated on Eliquis, SSS s/p pacemaker 02/2024, RBBB, CLL on Imbruvica, Carrington's esophagus, IBS presented to ER with c/o syncope today after ambulating to bathroom and attempting to sit on toilet. In ER afebrile, BP: 92/74, P: 88, R: 16, 96% on RA. WBC: 15 (15.9 on 09/17/24, 16.9 on 09/11/24, 12. on 06/28/24) Hgb: 11 (11 on 09/11/24, 13.5 on 07/10/24) Initial troponin negative. UA: unremarkable CT Head: no acute intracranial abnormality CXR: no infiltrate In ER given 1L NSS with repeat BP 116/81. DDx: orthostatic hypotension, vasovagal syncope, arrhythmia, adrenal insuffiency Repeat troponin Monitor on telemetry Orthostatic vital signs Pacemaker interrogation Carotid Doppler Echo Per outpatient chart review 02/13/2024 echo: 60-64%, mild-moderate AR, moderate TR, mildly enlarged aortic root at 4.3cm, moderately enlarged ascending aorta at 4.9cm Gentle IVF Hold home HCTZ Obtain random cortisol level Fall precautions PT/OT eval CBC, BMP in a.m. (2) Edema of right foot: Recent history left hand swelling with normal uric acid level, negative LUE venous doppler and improved after increase from chronic prednisone 5mg daily to prednisone 20mg x 5 days ESR and CRP elevated Obtain uric acid DDx PMR flare, gout, pseudogout Obtain xray right foot to r/o fracture, crystals Obtain venous doppler to r/o DVT, however less likely as is on Eliquis Will increase chronic prednisone 5mg to 20mg daily. Patient likely will require a taper (3) PMR (polymyalgia rheumatica): On chronic prednisone 5mg daily As above will increase chronic prednisone 5mg to 20mg daily. Will likely require longer taper (4) SSS (sick sinus syndrome): S/P pacemaker Pacemaker interrogation (5) PAF (paroxysmal atrial fibrillation): Anticoagulated on Eliquis Rate controlled Continue metoprolol succinate with holding parameters Continue Eliquis (6) CLL (chronic lymphocytic leukemia): On Imbruvica Continue Imbruvica Follows with [facility] (7) HTN (hypertension): Hypotension on ER arrival improved with IVF Hold home HCTZ (8) CKD (chronic kidney disease), stage III: Cr: 1.1. Baseline Cr: 1.2-1.3 Monitor renal functions, avoid nephrotoxic agents when possible (9) Dyslipidemia: Continue atorvastatin (10) Chronic anemia: History B12 deficiency. On monthly B12 injections Iron deficiency anemia. Recently started iron supplement. Continue home iron DVT Prophylaxis Anticoagulated on Eliquis Admit med/tele Full Code as per discussion with pt Follows with Dr Pastrana for routine care Pt was seen and care coordinated with Dr Orozco. See addendum I spent a total of 78 minutes reviewing notes, outpatient records, labs, medication, coordinating, documenting and providing care for this patient excluding time spent in the performance of separately billed services. Plan Addendum 10/06/2024: Patient was seen and examined at bedside as a follow-up of possible vasovagal syncope versus orthostatic hypotension. Patient was mildly dehydrated at presentation, reports improvement in his symptoms after IV fluid. WBC is elevated secondary to his steroid use. Patient has no signs and symptoms of infection, no signs of cellulitis in his arms and limbs. Troponin x 2 negative. Random cortisol WNL. Lyme screen negative. Flu screen negative. Other tickborne serology pending. CT head and right foot x-ray with no acute finding. RLE Doppler negative for DVT. Carotid Doppler WNL. EKG with A-fib, rate controlled. Echo with EF of 65 to 70%, Left ventricular wall motion is normal. Patient reported that after he woke up from bed [early AM] within less than 20 seconds he was in the bathroom getting ready to urinate when he fell. Per patient's at bedside he might have passed out for less than 10 seconds. Patient does not have any complaints of numbness or tingling Or focal weakness or facial deviation or slurred speech. Patient reports feeling better and back to his baseline. Imaging and lab findings were discussed with the patient and his & daughter at bedside in detail and answered all their questions to their full satisfaction. Patient is hemodynamically stable and would like to go home. He is being discharged with following instructions at the point of discharge: Follow-up with your primary care physician within a week time and likely you will need labs CBC/CMP/magnesium/phosphorus. Recommend that you transitions slowly between lying to sitting and sitting to standing position as discussed at the bedside. You can use thigh-high compression stockings during the day to help with orthostatic hypotension. Your hydrochlorothiazide will be held, visit your family doctor within a week time for further evaluation and possibly resuming of this medication. For concern of possible flareup of your PMR, you will benefit from visiting rheumatology as an outpatient in 1 to 2 weeks time upon discharge. Coordinate with your PCP office to set up the referral. Your prednisone has been increased to 20 mg daily, will gradually taper it back to 5 mg daily.Take prednisone with meal to avoid gastric side effects. Take your medications as prescribed. Please make sure that you are able to get your medications today by calling your pharmacy before you leave the hospital so that your treatment continuity is not broken. Home Health Attestation I certify that this patient is under my care and that I, or a physicians respiratory therapy assistant working with me, had a face to-face encounter that meets the home health [id number] encounter requirements with this patient. The encounter with the patient was in whole, or in part, for the following medical condition, which is the primary reason for home health care (list medical condition): I certify that, based on my findings, the following services are medically necessary home health services: My clinical findings support the need for the above services because: Further, I certify that my clinical findings support that this patient is homebound (i.e. absences from home require considerable and taxing effort and are for medical reasons or religion services or infrequently or of short duration when for other reasons) because: Certification for Home Health Services: Based on the above findings, I certify that this patient is confined to the home and needs intermittent longterm care, physical therapy and/or speech therapy or continues to need occupational therapy. The patient is under my care, and I have initiated the establishment of the plan of care. This patient will be followed by a physician who will periodically review the plan of care. Total Time Total Time Spent Total Time Spent (In Minutes): 45 Discharge Plan Discharge Items Patient Disposition: Home - Home Health Services Reason For Visit: SYNCOPE Discharge Diagnosis: Likely vasovagal syncope versus orthostatic hypotension Activity: As commented below Activity Comment: Slow transition during change in position Non-emergency contact: Primary Care Provider Call non-emergency contact if: you have any medication questions Follow-up/Referrals: Amos Pastrana MD [Primary Care Provider] - Diet: Heart Healthy Diet Texture: Dental soft (bite-sized) Addtl Attending Provider Instructions: Follow-up with your primary care physician within a week time and likely you will need labs CBC/CMP/magnesium/phosphorus. Recommend that you transitions slowly between lying to sitting and sitting to standing position as discussed at the bedside. You can use thigh-high compression stockings during the day to help with orthostatic hypotension. Your hydrochlorothiazide will be held, visit your family doctor within a week time for further evaluation and possibly resuming of this medication. For concern of possible flareup of your PMR, you will benefit from visiting rheumatology as an outpatient in 1 to 2 weeks time upon discharge. Coordinate with your PCP office to set up the referral. Your prednisone has been increased to 20 mg daily, will gradually taper it back to 5 mg daily.Take prednisone with meal to avoid gastric side effects. Take your medications as prescribed. Please make sure that you are able to get your medications today by calling your pharmacy before you leave the hospital so that your treatment continuity is not broken. Pending Studies at Discharge: No Stand-Alone Forms: [facility], Smoking Cessation Medications and DC Order Prescriptions: New prednisone 5 mg tablet 5 mg PO UD Qty: 45 0RF Rx Instructions: 20 mg daily x 5 days, then 15 daily x 5 days, then 10 mg daily x 5 days, then back to your usual home dose of 5 mg daily. Continued omeprazole 40 mg Capsule,Delayed Release(Dr/Ec) 40 mg PO BID brimonidine-timolol [Combigan] 0.2-0.5 % Drops 1 drp OPR BID Imbruvica 140 mg capsule 420 mg PO DAILY Rx Instructions: take at the same time everyday metoprolol succinate 25 mg tablet extended release 24 hr 25 mg PO BID atorvastatin 20 mg tablet 20 mg PO DAILY Eliquis 2.5 mg tablet 2.5 mg PO BID ferrous sulfate 27 mg iron Tablet 27 mg PO DAILY Held hydrochlorothiazide 12.5 mg capsule 12.5 mg PO DAILY Hold Instructions: Resume on 10/12/24. Hold until further eval by your PCP within a week of discharge Discontinued prednisone 5 mg Tablet 5 mg PO DAILY Discharge Orders: Discharge Order (Routine); Ordered 10/06/24 Ordered By: Harshad Tamez Admission Data Admit Date/Time: 10/05/24 12:39 Attending Provider: Harshad Tamez Admit Provider: Axel Orozco Primary Care Provider: Amos Pastrana Other Providers: Axel Orozco
[2024-10-06 13:28] VITALS: BP 121/79; PULSE 88
--- NOTE | 2024-10-06 14:00 | Communication Note ---
Date of Service: October 06, 2024 By CMS guidelines, a determination that the admission or continued stay is not medically necessary has been made by a member of the UR committee and jeni payne for this hospital stay, therefore a Code 44 will be completed and the Inpatient admission will be changed to outpatient.
[2024-10-07] MEDS ORDERED: IBRUTINIB PO SCH (09:00)
[2024-10-09 19:38] LABS: Babesia microti DNA Not Detected (Not Detected)
== END 2024-10-06 14:22 | disposition home health service (06) | DRG 312 ==
LOC: ED 09:55 → SUATTDRO 12:39 → EDINP 12:39 → 2N 14:30
DX: Z88.2 Allergy status to sulfonamides; Y92.019 Unspecified place in single-family (private) house as the place of occurrence of the external cause; I48.0 Paroxysmal atrial fibrillation; M35.3 Polymyalgia rheumatica; I95.1 Orthostatic hypotension; E86.0 Dehydration; W18.30XA Fall on same level, unspecified, initial encounter; C91.90 Lymphoid leukemia, unspecified not having achieved remission; Z87.891 Personal history of nicotine dependence; Z79.01 Long term (current) use of anticoagulants; K22.70 Barrett's esophagus without dysplasia; R60.0 Localized edema; Z95.0 Presence of cardiac pacemaker; Z79.52 Long term (current) use of systemic steroids; I45.10 Unspecified right bundle-branch block; N18.30 Chronic kidney disease, stage 3 unspecified; S09.90XA Unspecified injury of head, initial encounter; E78.5 Hyperlipidemia, unspecified; D72.829 Elevated white blood cell count, unspecified; I12.9 Hypertensive chronic kidney disease with stage 1 through stage 4 chronic kidney disease, or unspecified chronic kidney disease

== ENCOUNTER 2024-10-24 14:43 | Inpatient (IN) ==
[2024-10-24 16:17] LABS: Basophils # (auto) 0.04 K/uL (0.00-0.20); Basophils % (auto) 0.2 %; Eosinophils # (auto) 0.01 K/uL (0.00-0.50); Eosinophils % (auto) 0.1 %; Hematocrit (blood only) 34.9 % (42.0-52.0); Hemoglobin 11.7 g/dl (14.0-18.0); Immature Granulocytes # (auto) 0.27 K/uL (0.01-0.20); Immature Granulocytes % (auto) 1.4 %; Lymphocytes # (auto) 2.69 K/uL (1.20-3.40); Lymphocytes % (auto) 13.8 %; Mean Corpuscular Hgb Conc 33.5 g/dL (32.0-36.0); Mean Corpuscular Volume 95.4 fL (80.0-100.0); Mean Platelet Volume 10.5 fL (9.4-12.4); Monocytes % (auto) 4.1 %; Neutrophils # (auto) 15.74 K/uL (1.40-6.50); Neutrophils % (auto) 80.4 %; Platelet Count 241 K/uL (130-400); RDW Coefficient of Variation 14.1 % (11.5-14.5); RDW Standard Deviation 49.2 fL (36.4-46.3); Red Blood Count 3.66 M/uL (4.70-6.10); White Blood Count 19.55 K/ul (4.8-10.8)
[2024-10-24 16:20] LABS: Albumin Globulin Ratio 1.3 (0.9-2); Albumin Level 3.3 gm/dl (3.4-5.0); BUN Creatinine Ratio 26.3 (10-20); Bilirubin,Total 0.9 mg/dl (0.2-1.0); Calcium 8.5 mg/dl (8.6-10.3); Creatinine Clr Calc Pharmacy 42.7 ml/min; Globulin 2.6 gm/dl (2.5-4.0); Potassium 4.4 mmol/L (3.5-5.1); Total Protein 5.9 gm/dl (6.0-8.3)
--- NOTE | 2024-10-24 16:27 | Emergency Department Note ---
Impression & Plan Weakness, Abnormal EKG, Elevated troponin I level ED Provider Note NAME: SIGIFREDO SOLORIO AGE: 89 SEX: M : 1935 ARRIVES VIA: Walk-In INFORMANT: Patient, the patient's ED PROVIDER(S): Mikel Schaeffer DO CHIEF COMPLAINT: Weakness HPI: The patient is an 89-year-old male who presented to the emergency department with his significant other for an evaluation of generalized weakness. The patient states he felt in his normal state of health last evening. He does have a history of PMR and takes steroids every day. He has been going down on his dose. He also has a history of atrial fibrillation and pacemaker. The patient states he is noticed no black or tarry stools. He notices no cough or chest pain but has noticed some pain under his right axilla. He denies any falls. He denies having any headache. The patient called his family doctor and was sent to the emergency department for further evaluation. ROS: See above HPI for pertinent positives & negatives. A total of 10 systems reviewed and were otherwise negative. PAST MEDICAL HISTORY: See Below PAST SURGICAL HISTORY: See Below FAMILY HISTORY: See Below SOCIAL HISTORY: See Below HOME MEDICATIONS: See Below ALLERGIES: See Below VITALS: See Below PHYSICAL EXAMINATION: GENERAL: The is awake to verbal commands. He answers appropriately. EYES: The conjunctivae are clear. The pupils are round and reactive. EARS, NOSE, MOUTH AND THROAT: The nose is without any evidence of any deformity. NECK: The neck is nontender and supple. RESPIRATORY: Normal respiratory effort is noted there is no evidence of wheezing rhonchi or rales CARDIOVASCULAR: Irregular heart sounds are noted to auscultation. There is no definite murmur. GASTROINTESTINAL: The abdomen is soft. Abdomen is nontender. MUSCULOSKELETAL/EXTREMITIES: There is no evidence of gross deformity full range of motion is noted in the hips and shoulders. SKIN: Venous stasis changes are noted to both lower extremities. Skin was warm and dry. Trace pedal edema was noted bilaterally. NEUROLOGIC: Patient is awake alert and oriented x3. Strength was symmetric. MEDICAL DECISION MAKING: The is an 89-year-old male who presented to the emergency department with his significant other for an evaluation of generalized weakness. The patient did not have any specific complaints but stated earlier in the day he did not feel well. He does have a history of a pacemaker. The patient was found have an elevated troponin. EKG does show ST segment abnormalities but it does appear very close to his previous EKG. I discussed the patient's laboratory and radiographic studies with him and his family member. I discussed his condition with the on-call [facility] hospitalist group. They have agreed to evaluate the patient in the emergency department for further management and disposition. No definite infectious source could be found although the white blood cell count was elevated. The patient does have a baseline elevation in white blood cell count. He does take steroids. Triage Nursing notes reviewed. Prior medical records reviewed Vital Signs: reviewed and remarkable for no significant abnormalities Differential diagnosis: Infection, dehydration, metabolic abnormality, hypo/hyperglycemia, electrolyte disturbance, anemia, hypoxia, cardiac sources, intracerebral event, toxicologic, neurologic, as well as other pathologies. ER treatment provided: See below Diagnostics interpreted by me: ECG: EKG was obtained in the emergency department. My interpretation is atrial fibrillation at 81 bpm. No PVCs were noted. Nonspecific ST depressions were noted. This was compared to a tracing from September 28, 2024. A similar ST segment depression pattern was noted. Cardiac Monitoring: An order was placed for continuous cardiac monitoring. The monitor shows a rate of 68 bpm with atrial fibrillation. Laboratory studies: As stated above and show below. Imaging studies: See below. Radiographic imaging was reviewed by myself Consultation(s): I discussed this case with Shauna who is on-call for the [facility] hospitalist group. Past Med/Surg History Problem List Hyponatremia Generalized weakness Elevated troponin I level (Acute) Abnormal EKG (Acute) Weakness (Acute) Elevated WBC count (Acute) Closed head injury (Acute) Chronic anemia Edema of right foot Syncope (Acute) CLL (chronic lymphocytic leukemia) Right lower lobe pulmonary nodule Right middle lobe pneumonia Hip abductor tendinitis Constipation (Acute) Constipation (Acute) Medical History HTN (hypertension) PMR (polymyalgia rheumatica) PAF (paroxysmal atrial fibrillation) Dyslipidemia SSS (sick sinus syndrome) CKD (chronic kidney disease), stage III GERD (gastroesophageal reflux disease) Surgical History S/P placement of cardiac pacemaker History of tonsillectomy History of appendectomy Family History Other Cancer FHx: alcoholism Social History Smoking Status: Former smoker Hx Alcohol Use: No Hx Substance Use: No Preferred Language: Maori Isolation Washer Required: No Beliefs That Will Affect Care: None Current Living Situation: Spouse Feels Safe at Home: Yes Assistive Devices: Denture - Upper, Denture - Lower and Glasses Allergies Allergies Allergy/AdvReac Type Severity Reaction Status Date / Time lisinopril Allergy angioedema Verified 10/05/24 12:26 sulfamethoxazole Allergy angioedema Verified 10/05/24 12:26 [From Bactrim] trimethoprim [From Bactrim] Allergy angioedema Verified 10/05/24 12:26 sildenafil AdvReac Intermediate HEADACHE Verified 11/16/21 12:03 Home Meds Home Medications Medication Instructions Recorded Confirmed brimonidine 0.2 %-timolol 0.5 % 1 drp OPR BID 10/19/18 10/24/24 eye drops (Combigan) ibrutinib 140 mg capsule 420 mg PO DAILY chemo 11/16/21 10/24/24 (Imbruvica) atorvastatin 20 mg tablet 20 mg PO QAM 02/15/24 10/24/24 metoprolol succinate 25 mg 25 mg PO BID 04/29/24 10/24/24 tablet,extended release 24 hr apixaban 2.5 mg tablet (Eliquis) 2.5 mg PO AMHS 10/05/24 10/24/24 ferrous sulfate 27 mg iron tablet 27 mg PO DAILY 10/05/24 10/24/24 hydrochlorothiazide 12.5 mg capsule 12.5 mg PO DAILY 10/05/24 10/24/24 benzonatate 100 mg capsule 100 mg PO TID PRN Cough 10/24/24 10/24/24 hydroxychloroquine 200 mg tablet 300 mg PO HS 10/24/24 10/24/24 omeprazole 20 mg capsule,delayed 20 mg PO AMHS 10/24/24 10/24/24 release Previous Rx's Medication Instructions Recorded prednisone 5 mg tablet 5 mg PO UD #45 tabs 10/06/24 Results & Data (ED) Vital Signs Vital Signs - 24 hr 10/24/24 14:56 10/24/24 16:20 10/24/24 16:20 Temperature 36.8 C Temperature Source Temporal Artery Scan Pulse Rate 86 Pulse Rate [Apical] 76 Pulse Rhythm [Apical] Regular Pulse Strength [Apical] Normal Respiratory Rate 14 20 Respiratory Effort / Characteristics Non-Labored Non-Labored Spontaneous Respiratory Depth Normal Normal Respiratory Pattern Regular Blood Pressure 101/72 Blood Pressure [Right Arm] 112/77 Blood Pressure Mean 81 Blood Pressure Mean [Right Arm] 88 Blood Pressure Position [Right Arm] Lying Pulse Oximetry 95 99 99 Oxygen Delivery Method Room Air Room Air Room Air Sepsis Recent Fever Within 48 Hours No Sepsis New/Unexplained Change in Mental Status N/A Sepsis Action Taken by Nursing No Action Required 10/24/24 17:19 10/24/24 18:00 Temperature Temperature Source Pulse Rate 86 Pulse Rate [Apical] 68 Pulse Rhythm [Apical] Pulse Strength [Apical] Respiratory Rate 22 Respiratory Effort / Characteristics Non-Labored Spontaneous Respiratory Depth Normal Respiratory Pattern Regular Blood Pressure Blood Pressure [Right Arm] 106/75 Blood Pressure Mean Blood Pressure Mean [Right Arm] 85 Blood Pressure Position [Right Arm] Lying Pulse Oximetry 97 Oxygen Delivery Method Room Air Sepsis Recent Fever Within 48 Hours Sepsis New/Unexplained Change in Mental Status Sepsis Action Taken by Retirement Medications Current Medication List: was personally reviewed by me Laboratory Data Attestation: I reviewed the patient's lab results. 10/24/24 15:43 10/24/24 15:43 Lab Results 10/24/24 10/24/24 10/24/24 Range/Units 15:43 15:49 17:31 WBC 19.55 H (4.8-10.8) K/ul RBC 3.66 L (4.70-6.10) M/uL Hgb 11.7 L (14.0-18.0) g/dl Hct 34.9 L (42.0-52.0) % MCV 95.4 (80.0-100.0) fL MCH 32.0 (25.0-34.0) pg MCHC 33.5 (32.0-36.0) g/dL RDW Std Deviation 49.2 H (36.4-46.3) fL RDW Coeff of Leonardo 14.1 (11.5-14.5) % Plt Count 241 (130-400) K/uL MPV 10.5 (9.4-12.4) fL Immature Gran % (Auto) 1.4 % Neut % (Auto) 80.4 % Lymph % (Auto) 13.8 % [place] % (Auto) 4.1 % Eos % (Auto) 0.1 % Baso % (Auto) 0.2 % Neut # (Auto) 15.74 H (1.40-6.50) K/uL Lymph # (Auto) 2.69 (1.20-3.40) K/uL [place] # (Auto) 0.80 H (0.11-0.59) K/uL Eos # (Auto) 0.01 (0.00-0.50) K/uL Baso # (Auto) 0.04 (0.00-0.20) K/uL Immature Gran # (Auto) 0.27 H (0.01-0.20) K/uL Sodium 129 L (136-145) mmol/L Potassium 4.4 (3.5-5.1) mmol/L Chloride 97 L (98-107) mmol/L Carbon Dioxide 24 (21-32) mmol/L Anion Gap 8 (3-11) BUN 31 H (6-23) mg/dl Creatinine 1.18 (0.6-1.4) mg/dl Est Cr Clr Drug Dosing 42.7 ml/min eGFR 59.72 BUN/Creatinine Ratio 26.3 H (10-20) Glucose 124 H (70-99(Fasting)) mg/dl POC Glucose 121 H (70-99) mg/dl Calcium 8.5 L (8.6-10.3) mg/dl Magnesium 2.2 (1.7-2.4) mg/dl Total Bilirubin 0.9 (0.2-1.0) mg/dl AST 31 (13-39) U/L ALT 35 (7-52) U/L Alkaline Phosphatase 75 (34-104) U/L Troponin I High Sens 25.6 H (0-20) pg/ml Total Protein 5.9 L (6.0-8.3) gm/dl Albumin 3.3 L (3.4-5.0) gm/dl Globulin 2.6 (2.5-4.0) gm/dl Albumin/Globulin Ratio 1.3 (0.9-2) TSH (0.300-4.500) uIu/ml Random Cortisol 7.60 mcg/dl Urine Color Urine Appearance (Clear) Urine pH (4.5-7.5) Ur Specific Kramer (1.000-1.030) Urine Protein (Negative) Urine Glucose (UA) (Negative) Urine Ketones (Negative) Urine Blood (Negative) Urine Nitrite (Negative) Urine Bilirubin (Negative) Urine Urobilinogen (Negative) Ur Leukocyte Esterase (Negative) SARS-CoV-2 (PCR) NEGATIVE (Negative) Influenza Type A (PCR) Negative (Neg) Influenza Type B (PCR) Negative (Neg) RSV (RT-PCR) Negative (Neg) 10/24/24 10/24/24 Range/Units 17:42 19:15 WBC (4.8-10.8) K/ul RBC (4.70-6.10) M/uL Hgb (14.0-18.0) g/dl Hct (42.0-52.0) % MCV (80.0-100.0) fL MCH (25.0-34.0) pg MCHC (32.0-36.0) g/dL RDW Std Deviation (36.4-46.3) fL RDW Coeff of Leonardo (11.5-14.5) % Plt Count (130-400) K/uL MPV (9.4-12.4) fL Immature Gran % (Auto) % Neut % (Auto) % Lymph % (Auto) % [place] % (Auto) % Eos % (Auto) % Baso % (Auto) % Neut # (Auto) (1.40-6.50) K/uL Lymph # (Auto) (1.20-3.40) K/uL [place] # (Auto) (0.11-0.59) K/uL Eos # (Auto) (0.00-0.50) K/uL Baso # (Auto) (0.00-0.20) K/uL Immature Gran # (Auto) (0.01-0.20) K/uL Sodium (136-145) mmol/L Potassium (3.5-5.1) mmol/L Chloride (98-107) mmol/L Carbon Dioxide (21-32) mmol/L Anion Gap (3-11) BUN (6-23) mg/dl Creatinine (0.6-1.4) mg/dl Est Cr Clr Drug Dosing ml/min eGFR BUN/Creatinine Ratio (10-20) Glucose (70-99(Fasting)) mg/dl POC Glucose (70-99) mg/dl Calcium (8.6-10.3) mg/dl Magnesium (1.7-2.4) mg/dl Total Bilirubin (0.2-1.0) mg/dl AST (13-39) U/L ALT (7-52) U/L Alkaline Phosphatase (34-104) U/L Troponin I High Sens 19.7 D (0-20) pg/ml Total Protein (6.0-8.3) gm/dl Albumin (3.4-5.0) gm/dl Globulin (2.5-4.0) gm/dl Albumin/Globulin Ratio (0.9-2) TSH 0.767 (0.300-4.500) uIu/ml Random Cortisol mcg/dl Urine Color Yellow Urine Appearance Clear (Clear) Urine pH 6.0 (4.5-7.5) Ur Specific Kramer 1.011 (1.000-1.030) Urine Protein Negative (Negative) Urine Glucose (UA) Negative (Negative) Urine Ketones Negative (Negative) Urine Blood Negative (Negative) Urine Nitrite Negative (Negative) Urine Bilirubin Negative (Negative) Urine Urobilinogen Negative (Negative) Ur Leukocyte Esterase Negative (Negative) SARS-CoV-2 (PCR) (Negative) Influenza Type A (PCR) (Neg) Influenza Type B (PCR) (Neg) RSV (RT-PCR) (Neg) Imaging Data Attestation: I personally reviewed and interpreted this imaging study as follows: My Impression: 1 view chest x-ray was obtained in the emergency department. My interpretation is no free air or definite infiltrate, final report below. CT of the head was obtained in the emergency department. My interpretation is no intracranial hemorrhage or mass effect, final report below. Radiologist's Impression: Chest X-Ray 10/24/24 16:22 INDICATION: Weakness. TECHNIQUE: Frontal radiograph of the chest. COMPARISON: Radiograph from 10/05/2024. FINDINGS: Cardiomegaly. Mild eventration of the right hemidiaphragm again noted. Left-sided pacemaker again noted. Linear scarring/subsegmental atelectasis in the left lung base. Pulmonary vasculature appear within normal limits. No infiltrate, pleural effusion or pneumothorax. No acute osseous abnormality evident. IMPRESSION: No acute cardiopulmonary process. Electronically signed by Oliver Prieto 10-24-2024 5:[address] 10/24/24 16:22 Clinical History: Weakness Technique: Axial computed tomography images were obtained of the brain without intravenous contrast. Findings: There is diffuse cerebral atrophy, within expected limits for the patient's age. Areas of decreased attenuation are seen within the periventricular white matter, likely representing chronic small vessel ischemic disease. There is no definite sign of acute or old infarction. No intracranial hemorrhage is evident. No definite mass lesion is seen on this noncontrast examination. There is no midline shift or other form of herniation. No hydrocephalus is seen. No fracture is identified. The orbits and the visualized paranasal sinuses appear unremarkable. The mastoid air cells appear clear. Impression: 1. Cerebral atrophy and chronic small vessel ischemic disease 2. Otherwise unremarkable noncontrast CT of the brain Electronically signed by Warren Lu 10-24-2024 4:48 PM Discharge Plan Visit Data Chief Complaint: Hypotension Stated Complaint: HYPOGLYCEMIA, PAIN UNDER RT ARM ED Provider: Mikel Schaeffer Discharge Problem: Weakness, Abnormal EKG, Elevated troponin I level Patient Disposition: Being Evaluated by Hospitalist Forms Stand Alone Forms: My [facility] Prescriptions Prescriptions: No Action brimonidine-timolol [Combigan] 0.2-0.5 % Drops 1 drp OPR BID Imbruvica 140 mg capsule 420 mg PO DAILY Rx Instructions: take at the same time everyday metoprolol succinate 25 mg tablet extended release 24 hr 25 mg PO BID atorvastatin 20 mg tablet 20 mg PO QAM hydrochlorothiazide 12.5 mg capsule 12.5 mg PO DAILY Hold Instructions: Resume on 10/12/24. Hold until further eval by your PCP within a week of discharge Eliquis 2.5 mg tablet 2.5 mg PO AMHS ferrous sulfate 27 mg iron Tablet 27 mg PO DAILY prednisone 5 mg tablet 5 mg PO UD Qty: 45 0RF Rx Instructions: 20 mg daily x 5 days, then 15 daily x 5 days, then 10 mg daily x 5 days, then back to your usual home dose of 5 mg daily. omeprazole 20 mg capsule,delayed release(DR/EC) 20 mg PO AMHS hydroxychloroquine 200 mg tablet 300 mg PO HS benzonatate 100 mg capsule 100 mg PO TID PRN (Reason: Cough) Referrals Referrals: Amos Pastrana MD [Primary Care Provider] -
[2024-10-24 16:43] LABS: Magnesium 2.2 mg/dl (1.7-2.4)
--- NOTE | 2024-10-24 16:48 | CT Scan Report ---
Clinical History: Weakness Technique: Axial computed tomography images were obtained of the brain without intravenous contrast. Findings: There is diffuse cerebral atrophy, within expected limits for the patient's age. Areas of decreased attenuation are seen within the periventricular white matter, likely representing chronic small vessel ischemic disease. There is no definite sign of acute or old infarction. No intracranial hemorrhage is evident. No definite mass lesion is seen on this noncontrast examination. There is no midline shift or other form of herniation. No hydrocephalus is seen. No fracture is identified. The orbits and the visualized paranasal sinuses appear unremarkable. The mastoid air cells appear clear. Impression: 1. Cerebral atrophy and chronic small vessel ischemic disease 2. Otherwise unremarkable noncontrast CT of the brain Electronically signed by Warren Lu 10-24-2024 4:48 PM
[2024-10-24 16:50] LABS: Troponin I High Sensitivity 25.6 pg/ml (0-20)
--- NOTE | 2024-10-24 17:30 | XRay Report ---
INDICATION: Weakness. TECHNIQUE: Frontal radiograph of the chest. COMPARISON: Radiograph from 10/05/2024. FINDINGS: Cardiomegaly. Mild eventration of the right hemidiaphragm again noted. Left-sided pacemaker again noted. Linear scarring/subsegmental atelectasis in the left lung base. Pulmonary vasculature appear within normal limits. No infiltrate, pleural effusion or pneumothorax. No acute osseous abnormality evident. IMPRESSION: No acute cardiopulmonary process. Electronically signed by Oliver Prieto 10-24-2024 5:30 PM
[2024-10-24 18:02] LABS: Appearance Urine Clear (Clear); Bilirubin Urine Negative (Negative); Blood Urine Negative (Negative); Color Urine Yellow; Glucose Urine UA Negative (Negative); Ketones Urine Negative (Negative); Leukocyte Esterase Urine Negative (Negative); Nitrite Urine Negative (Negative); Protein Urine Negative (Negative); Specific Gravity Urine 1.011 (1.000-1.030); Urobilinogen Urine Negative (Negative)
[2024-10-24 18:27] LABS: Influenza A virus by PCR Negative (Neg); Influenza B virus by PCR Negative (Neg); RSV by PCR Negative (Neg); SARS CoV2 RNA(COVID-19) Ceph NEGATIVE (Negative)
--- NOTE | 2024-10-24 19:09 | History & Physical Report ---
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 Denies CP, SOB In ER afebrile, BP: 101/72, P: 86, R: 14, 95% on room air WBC: 19 (chronically 15) likely from h/o CLL as well as steroid use Hgb: 11.7 (11.1 on 10/05/24) CT head: Cerebral atrophy and chronic small vessel ischemic disease CXR: No acute cardiopulmonary process. Troponin: 25-->19.7 EKG: atrial fibrillation, rate 81, nonspecific ST changes per my interpretation Blood cultures pending Pacemaker interrogation Orthostatic vital signs Hold home HCTZ as BP soft in ER and with reported low BP's at home Fall precautions PT/OT eval CBC, BMP in am 10/05/2024 echo: EF: 65-70%, no significant aortic stenosis, trace aortic regurgitation, mild-moderate tricuspid regurgitation, right ventricular systolic pressure elevated at 30-40 mmHg (2) Hyponatremia: Plan: Na: 129. Was 131 on 10/05/2024, 135 and 10/06/2024. 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 On chronic prednisone 5mg daily, however now on prolonged taper. Was started with 20 mg x 14 days, 15 mg x 14 days, 10 mg x 14 days, 7.5 mg x 14 days then continue on daily 5 mg. (Currently on day 3 of 14 of the 15mg daily dose). Continue prednisone taper Plaquenil was started on 10/17/24 Pt reports much improved left hand and right ankle/foot edema since starting new regimen (4) SSS (sick sinus syndrome): Plan: S/P pacemaker Pacemaker interrogation (5) CKD (chronic kidney disease), stage III: Plan: Cr: 1.1. Baseline Cr: 1.2-1.3 Monitor renal functions, avoid nephrotoxic agents when possible (6) CLL (chronic lymphocytic leukemia): Plan: WBC: 19 (chronically WBC 15) On Imbruvica Follows with [facility] [place]ology (7) PAF (paroxysmal atrial fibrillation): Plan: Anticoagulated on Eliquis Rate controlled Continue Eliquis, metoprolol succinate DVT Prophylaxis On Eilquis Admit med/tele Full Code as per discussion with pt Follows with Dr Pastrana for routine care Pt was seen and care coordinated with Dr Jeffery. See addendum I spent a total of 79 minutes reviewing notes, outpatient records, labs, m edication, coordinating, documenting and providing care for this patient excluding time spent in the performance of separately billed services. 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 History hospitalization 10/05/24-10/06/24 for syncope and thought could be orthostatic hypotension and HCTZ was held upon discharge. Patient states HCTZ was restarted approximately one week ago. states been checking BP at home and BP's been running low and HCTZ held past couple of days. reports this morning was 80/63 and P:84. Per chart review: Seen by rheumatology 10/08/2024 for left hand swelling and right foot/ankle swelling. Prednisone taper was started with 20 mg x 14 days, 15 mg x 14 days, 10 mg x 14 days, 7.5 mg x 14 days then continue on daily 5 mg. 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 Plaquenil was started on 10/17/24. He is on day 3 of 14 of 15mg prednisone daily. States since starting the Plaquenil having much improvement. States left hand drained clear fluid and since left hand edema resolved. States right leg seeping clear fluid and is seeping fluid is slowing down and overall much decreased swelling to right leg/ankle/foot. Patient states had discomfort to right side of chest and axilla this morning and was feeling tired, generalized weak. The chest and axilla pain self resolved but still feeling tired and weak. States last few weeks in the morning has been very tired and weak and as day goes on seems less tired and able to get himself lunch and then eats dinner and feels good by evening. Drinks 64 ounces of water daily. Drinks orange juice in the afternoon. Denies fever/chills, diaphoresis, N/V/D/C, REYES, dizziness, syncope, vision changes, neck pain, CP, SOB, palpitations, cough, sore throat, rhinorrhea, abdominal pain, paresthesias, fall, other rashes, urinary symptoms. Allergies Allergy/AdvReac Type Severity Reaction Status Date / Time lisinopril Allergy angioedema Verified 10/05/24 12:26 sulfamethoxazole Allergy angioedema Verified 10/05/24 12:26 [From Bactrim] trimethoprim [From Bactrim] Allergy angioedema Verified 10/05/24 12:26 sildenafil AdvReac Intermediate HEADACHE Verified 11/16/21 12:03 Home Medications Medication Instructions Recorded Confirmed Type brimonidine 0.2 %-timolol 0.5 % 1 drp OPR BID 10/19/18 10/24/24 History eye drops (Combigan) ibrutinib 140 mg capsule 420 mg PO DAILY chemo 11/16/21 10/24/24 History (Imbruvica) atorvastatin 20 mg tablet 20 mg PO QAM 02/15/24 10/24/24 History metoprolol succinate 25 mg 25 mg PO BID 04/29/24 10/24/24 History tablet,extended release 24 hr apixaban 2.5 mg tablet (Eliquis) 2.5 mg PO AMHS 10/05/24 10/24/24 History ferrous sulfate 27 mg iron tablet 27 mg PO DAILY 10/05/24 10/24/24 History hydrochlorothiazide 12.5 mg capsule 12.5 mg PO DAILY 10/05/24 10/24/24 History prednisone 5 mg tablet 5 mg PO UD #45 tabs 10/06/24 10/24/24 Rx benzonatate 100 mg capsule 100 mg PO TID PRN Cough 10/24/24 10/24/24 History hydroxychloroquine 200 mg tablet 300 mg PO HS 10/24/24 10/24/24 History omeprazole 20 mg capsule,delayed 20 mg PO AMHS 10/24/24 10/24/24 History release Past Med/Surg History Problem List Hyponatremia Generalized weakness Elevated troponin I level (Acute) Abnormal EKG (Acute) Weakness (Acute) Elevated WBC count (Acute) Closed head injury (Acute) Chronic anemia Edema of right foot Syncope (Acute) CLL (chronic lymphocytic leukemia) Right lower lobe pulmonary nodule Right middle lobe pneumonia Hip abductor tendinitis Constipation (Acute) Constipation (Acute) Medical History HTN (hypertension) PMR (polymyalgia rheumatica) PAF (paroxysmal atrial fibrillation) Dyslipidemia SSS (sick sinus syndrome) CKD (chronic kidney disease), stage III GERD (gastroesophageal reflux disease) Surgical History S/P placement of cardiac pacemaker History of tonsillectomy History of appendectomy Family History Other Cancer FHx: alcoholism Social History Smoking Status: Former smoker Hx Alcohol Use: No Hx Substance Use: No Preferred Language: Cameroonian Communication Ability: Effective Informatics Nurse Specialist Required: No Beliefs That Will Affect Care: None Current Living Situation: Spouse Other Information That Helps Us Care for You: No Feels Safe at Home: Yes Safety Concerns: Feels Safe At This Time Assistive Devices: Glasses and Other Assistive Devices Comment: Partial Dentures - Upper, Lower Review of Systems Review of Systems: All systems reviewed & are unremarkable except as noted in HPI & below Physical Exam Physical Exam: General: no acute distress, WDWN elderly male Head: normocephalic, atraumatic Eyes: conjunctiva non-injected, anicteric ENT: normal inspection external ears, nose, mucous membranes mildly dry Neck: supple, trachea midline Lungs: clear, no respiratory distress, no wheezing/rhonchi/rales CV: irregularly irregular, +murmur Abd: normal BS, soft, non-tender Ext: no cyanosis, no calf tenderness; Left hand with ecchymosis dorsal surface without significant edema and without erythema or warmth. LLE: no edema or erythema and ROM intact. RLE: trace edema to ankle and entire foot, no erythema or warmth, No ankle tenderness to palpation (much improved from prior in 09/2024) Neuro: A&O x 3, no focal deficits noted, normal affect Skin: warm, dry Results & Data Results & Data Vital Signs (Past 12 Hours) Vital Signs Temp Pulse Pulse Resp BP BP Pulse Ox 10/24/24 18:00 68 22 106/75 97 10/24/24 17:19 86 10/24/24 16:20 99 10/24/24 16:20 76 20 112/77 99 10/24/24 14:56 36.8 C 86 14 101/72 95 O2 Del Method 10/24/24 18:00 Room Air 10/24/24 17:19 10/24/24 16:20 Room Air 10/24/24 16:20 Room Air 10/24/24 14:56 Room Air Laboratory Results Short CBC 10/24/24 Range/Units 15:43 WBC 19.55 H (4.8-10.8) K/ul Hgb 11.7 L (14.0-18.0) g/dl Hct 34.9 L (42.0-52.0) % Plt Count 241 (130-400) K/uL BMP 10/24/24 15:43 Sodium 129 L Potassium 4.4 Chloride 97 L Carbon Dioxide 24 BUN 31 H Creatinine 1.18 Glucose 124 H Calcium 8.5 L Liver Function 10/24/24 Range/Units 15:43 Total Bilirubin 0.9 (0.2-1.0) mg/dl AST 31 (13-39) U/L ALT 35 (7-52) U/L Alkaline Phosphatase 75 (34-104) U/L Albumin 3.3 L (3.4-5.0) gm/dl Urine 10/24/24 Range/Units 17:42 Urine Color Yellow Urine Appearance Clear (Clear) Urine pH 6.0 (4.5-7.5) Ur Specific [place] 1.011 (1.000-1.030) Urine Protein Negative (Negative) Urine Glucose (UA) Negative (Negative) Diagnostic Findings Chest X-Ray 10/24/24 16:22 INDICATION: Weakness. TECHNIQUE: Frontal radiograph of the chest. COMPARISON: Radiograph from 10/05/2024. FINDINGS: Cardiomegaly. Mild eventration of the right hemidiaphragm again noted. Left-sided pacemaker again noted. Linear scarring/subsegmental atelectasis in the left lung base. Pulmonary vasculature appear within normal limits. No infiltrate, pleural effusion or pneumothorax. No acute osseous abnormality evident. IMPRESSION: No acute cardiopulmonary process. Electronically signed by Oliver Prieto 10-24-2024 5:[address] 10/24/24 16:22 Clinical History: Weakness Technique: Axial computed tomography images were obtained of the brain without intravenous contrast. Findings: There is diffuse cerebral atrophy, within expected limits for the patient's age. Areas of decreased attenuation are seen within the periventricular white matter, likely representing chronic small vessel ischemic disease. There is no definite sign of acute or old infarction. No intracranial hemorrhage is evident. No definite mass lesion is seen on this noncontrast examination. There is no midline shift or other form of herniation. No hydrocephalus is seen. No fracture is identified. The orbits and the visualized paranasal sinuses appear unremarkable. The mastoid air cells appear clear. Impression: 1. Cerebral atrophy and chronic small vessel ischemic disease 2. Otherwise unremarkable noncontrast CT of the brain Electronically signed by Warren Lu 10-24-2024 4:48 PM Supervising Physician Co-Signing Physician Notes Pt seen and examined by me, care coordinated with Sherita Cordero PA-C, pls refer to her note for further detail. 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 History hospitalization 10/05/24-10/06/24 for syncope and thought could be orthostatic hypotension and HCTZ was held upon discharge. Patient states HCTZ was restarted approximately one week ago. states been checking BP at home and BP's been running low and HCTZ held past couple of days. reports this morning was 80/63 and P:84. Per chart review: Seen by rheumatology 10/08/2024 for left hand swelling and right foot/ankle swelling. Prednisone taper was started with 20 mg x 14 days, 15 mg x 14 days, 10 mg x 14 days, 7.5 mg x 14 days then continue on daily 5 mg. 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 Plaquenil was started on 10/17/24. He is on day 3 of 14 of 15mg prednisone daily. States since starting the Plaquenil having much improvement. States left hand drained clear fluid and since left hand edema resolved. States right leg seeping clear fluid and is seeping fluid is slowing down and overall much d ecreased swelling to right leg/ankle/foot. Pt is currently sitting up in bed in [facility]. He is awake, alert, answers appropriately. Pt's present at the bedside and helps with history. lungs CTAB. heart sounds irregular. Abdomen soft, nontender. LE edema 1+ b/l. Moves extremities. Will hold HCTZ, obtain orthostatic VS, will interrogate pacer. WBC elevated likely secondary to CLL and steroid use, will obtain blood cultx to r/o infection. MD Latia
[2024-10-24 20:19] LABS: Thyroid Stimulating Hormone 0.767 uIu/ml (0.300-4.500); Troponin I High Sensitivity 19.7 pg/ml (0-20)
[2024-10-24] MEDS ORDERED: ONDANSETRON INJ 2 MG/ML 2 ML VIAL IV PRN (21:20)
[2024-10-24] MEDS: SODIUM CHLORIDE 0.9% 500 ML IV SCH (21:25)
[2024-10-24] MEDS: HYDROXYCHLOROQUINE SULFATE 200 MG TAB PO SCH (22:12)
[2024-10-24] MEDS: PANTOprazole 40 MG TAB PO SCH (22:12)
[2024-10-24] MEDS: APIXABAN 2.5 MG TAB PO SCH (22:12)
[2024-10-24] MEDS: METOPROLOL SUCC 25MG EXT REL TAB PO SCH (22:13)
--- OUTSIDE RECORDS SUMMARY | 2024-10-24 23:58 | External Medical Summary ---
Author Name Unknown Address Unknown Organization [id number]:[facility] [place] [address] Laboratory Report Ordering Provider Test Date Status EFRAIN MOYER 10/11/2024 10:40:02 Final Observation Date Value Abnormality Reference (Units ) Status Phosphate 10/11/2024 10:40:02 2.6 2.5-4.8 (m g/dL) Final Performing Location [facility] [place] [address]
--- OUTSIDE RECORDS SUMMARY | 2024-10-24 23:58 | External Medical Summary ---
Author Name Unknown Address Unknown Organization [id number]:[facility] [place] [address] [place] [address] Laboratory Report Ordering Provider Test Date Status GONZALO GARDINER 10/11/2024 10:40:02 Final Observation Date Value Abnormality Reference (Units) Status Hepatitis B virus surface Ab [Units/volume] in Serum or Plasma by Immunoassay 10/11/2024 10:40:02 <3.5 (mIU/mL) Final Hepatitis B virus surface Ab [Presence] in Serum by Immunoassay 10/11/2024 10:40:02 Negative Final HEPATITIS B SURFACE ANTIBODY, INTERPRETATION 10/11/2024 10:40:02 NOT immune to Hepatitis B Virus Final POSITIVE: >=11.5 mIU/mL
INDETERMINATE: 8.5-<11.5 mIU/mL
NEGATIVE: <8.5 mIU/mL Performing Location [facility] - Formerly named [facility] [place] [address]
--- OUTSIDE RECORDS SUMMARY | 2024-10-24 23:58 | External Medical Summary ---
Author Name Unknown Address Unknown Organization [id number]:[facility] - [address] [facility] [place] [address] Laboratory Report Ordering Provider Test Date Status FABIÁNBalbinaSÁNCHEZ 10/11/2024 10:40:02 Final Observation Date Value Abnormality Reference (Units ) Status Hepatitis B virus core Ab [Presence] in Serum 10/11/2024 10:40:02 Negative Negative Final Performing Location [facility] - [address] [place] [address]
--- OUTSIDE RECORDS SUMMARY | 2024-10-24 23:58 | External Medical Summary | Summary of Care ---
Author Name Unknown Organization [facility] Address [address] [place] [address] Phone [phone] Care Team Providers Care Telephone Operator Chief Name Role Phone Amos Pastrana MD Primary Care Provider + Reason for Visit * Reason Comments Medication Administration Vitamin B12 1, 000mcg Encounter Details Date Type Department Care Team (Late st Contact Info) Description 10/23/2024 11:15 AM EST Immunization/I njection Hematology/Oncology Treatment, [place] [address] [place] [address] Vitamin B12 deficiency (dietary) anemia* Allergies Active Allergy Reactions Criticality Noted Date Comments Azithromycin Unknown Medium 11/04/2016 Pt states that he felt uncomfortable with this medication, and doesn't want to take it again Sulfamethoxazole-Trimet hoprim Edema face/lips/tongue High 11/25/2021 Large angioedema 11/2021 (unclear if from bactrim or lisinopril) Lisinopril Cough 11/25/2021 Zoledronic Acid 02/07/2023 Severe muscle pain Sildenafil Citrate Abdominal pain,Neuro complications (Please comment) 06/26/2013 "Viagra" headaches Sulfamethoxazole 10/05/2024 Other Reaction(s): angioedema Trimethoprim 10/05/2024 Other Reaction(s): angioedema documented as of this encounter (statuses as of 10/23/2024) Medications COMBIGAN 0.2-0.5 % OP SOLN Instill 1 Drop into the right eye in the morning and 1 Drop before bedtime. Active Centrum Adults Oral Tablet 1 tab daily 1 Tablet 3 Active Metoprolol Succinate ER 25 MG Oral Tablet Extended Release 24 Hour (toPROL XL)Indications:Pa roxysmal atrial fibrillation (HCC),Cardiac pacemaker in situ,SSS (sick sinus syndrome) (HCC),RBBB (right bundle branch block),HTN, goal below 140/90 Take 1 Tablet by mouth in the morning and 1 Tablet before bedtime. 180 Tablet 3 4 Active Ibrutinib 140 MG Oral Capsule (Imbruvica)Indica tions:CLL (chronic lymphocytic leukemia) ([facility]) TAKE 3 CAPSULES BY MOUTH IN THE MORNING. TAKE MEDICATION AT SAME TIME EVERY DAY 90 Capsule 5 10/22/2024 11:13 AM EST 4 06/07/20 25 Active Apixaban 2.5 MG Oral Tablet (Eliquis) Take 1 Tablet by mouth in the morning and 1 Tablet before bedtime. 4 Active Omeprazole 20 MG Oral Capsule Delayed Release (PriLOSEC) Take 1 Capsule by mouth in the morning and 1 Capsule before bedtime. 60 Capsule 3 4 Active Ferrous Sulfate 27 MG Oral Tablet 1 Tablet. 4 Active predniSONE 5 MG Oral Tablet (Deltasone) Take 4 Tablets by mouth daily for 14 days, THEN 3 Tablets daily for 14 days, THEN 2 Tablets daily for 14 days, THEN 1.5 Tablets daily for 14 days, THEN 1 Tablet daily for 14 days. 161 Tablet 4 12/18/19 25 Active Hydroxychloroquin e Sulfate 200 MG Oral Tablet (Plaquenil) Take 1.5 Tablets by mouth at bedtime. 90 Tablet 2 5 Active Atorvastatin Calcium 20 MG Oral Tablet (Lipitor)Indicati ons:Dyslipidemia, goal LDL below 100 Take 1 Tablet by mouth in the morning. 90 Tablet 3 5 Active documented as of this encounter (statuses as of 10/23/2024) Active Problems Problem Noted Date Diagnosed Date [...] Lung nodule 10/30/2012 Overview (10/22/2018): RLL. Stable [id number]. 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 Consider lulu 5y. 03/24- EGD-stage C0-M1 per [place] criteria. No dysplasia. REC LULU 03/2018 Other specified glaucoma Generalized osteoarthritis Irritable bowel syndrome documented as of this encounter (statuses as of 10/23/2024) Resolved Problems Problem Noted Date Diagnosed Date [...] . 10/28 4.6 thror aneurysm on [facility]--TTE orderd for 6mo 2017-f [facility] copy on file 01/24 colon-WNL 01/22 ACC risk 24% declined statin. 11/23 PFTs WNL 06/22 colonoscopy WNL. +int hemorrhoids, divertic. 12/20 fell on ice-[facility] rec tendon repair knee 10/22 pt declined prostate screen Bradycardia 10/30/2012 01/07/2020 Dyslipidemia 10/05/2021 Rotator cuff injury 04/28/20 17 Overview (09/06/2012): right documented as of this encounter (statuses as of 10/23/2024) Immunizations Name Administration Dates Next Due COVID-19 mRNA, LNP-s, No Pre serve, 2-Dose Series (Moderna) 11/19/2021,05/25/2021,12/09/2020,11/04 COVID-19, MRNA-LNP, 24-25, P R, 30MCG/0.3ML, IM, 12YRS AND ABOVE (HealthData[employer]ights-ComirnatThe Cloakroom) 06/12/2024 COVID-19, MRNA-LNP, PF, 30 M CG/0.3 mL, 12 YRS AND ABOVE, IM (PFIZER-Comirnaty) 07/02/2023 COVID-19, MRNA-LNP, PF, 50 M CG/0.5 mL, 12 YRS AND ABOVE, IM (MODERNA-Spikevax) 12/24/2023 Covid-19, Mrna, Lnp-s, Pf, B ivalent, 30 Mcg, IM, 12 yrs and above (HealthDataInsights) 02/24/2023,07/01/2022 Pneumococcal Conjugate Vacc, 13 Valent (Prevnar) [...] Nursing Notes * Shanna Mathews LPN - 10/23/2024 11:27 AM EST Vitamin B12 1,000mcg administered IM into the left deltoid muscle. Patient tolerated injection and will return in 4 weeks. documented in this encounter Plan of Treatment Upcoming Encounters Date Type Department Care Team (Late st Contact Info) Description 11/20/2024 11:45 AM EST Immunization/Injectio n [facility]ematology[facility] [place] [address] [facility] [phone] 12/04/2024 2:00 PM EST Laboratory Laboratory [facility] [address] [facility] [place] [id number] [address] [place] [address] 12/11/2024 2:00 PM EST Office Visit Hematology/Oncology [facility] [address] [facility] [place] [phone] Jesus Penaloza MD [address] [facility] [place] [address] 01/01/2025 10:40 AM EDT Office Visit Rheumatology [facility] [address] [place] [phone] Alfredo Whitaker MD [address] [facility] [place] [address] 02/11/2025 9:00 AM EDT Pharmacy Pharmacy Hematology Oncology [facility] [place] [address] [place] [address] [facility] Hem/Onc [address] [facility] [place] [address] 05/15/2025 12:00 PM EDT Office Visit [facility] [address] [place] [address] Amos Pastrana MD [address] [place] [address] Health Maintenance Due Date Last Done Comments [...] Screening 01/26/2025 01/27/2024 CKD HGB USE SMARTSET 67100 10/11/202510/11, 10/11/2024, 09/17/2024, Additional history exists CKD PHOS USE SMARTSET 46849 10/11/2025 10/11/2024, 1 DTap/Tdap Vaccines (3 - Td or Tdap) 06/30/2032 06/30/2022, 10/30/2012 Pneumococcal Vaccine: 50+ Years Completed 07/25/2015, 10/10/2002 Zoster Vaccines Completed 09/26/2019, 08/11, 06/19/2019, Additional history exists Influenza Vaccine (FLU shot) Completed 12/2023, 06/15/2023, 06/16/2022, Additional history exists VITAMIN D LEVEL ONCE IN A LIFETIME-USE SMARTSET# [id number] Completed 09/17/2024, 12/16/2023, 12/17/2022 HPV (Gardasil) Vaccine [...] 1,000 mcg 1,000 mcg, Intramuscular, ONCE, On Tue10/23/24 at 1200, For 1 doseIndications:Vitami n B12 deficiency (dietary) anemia Given 10/23/2024 11:21 AM EST 1,000 mcg Deltoid Left Upper documented in this encounter Care Teams Telephone Operator Chief Relationship Specialty Start Date End Date Amos Pastrana MD [address] [place] [address] PCP - General Family Medicine 04/28/24 documented as of this encounter
--- OUTSIDE RECORDS SUMMARY | 2024-10-24 23:58 | External Medical Summary ---
Author Name Unknown Address Unknown Organization K01:[facility]AT[facility] - [facility] [place] [facility] [address] Laboratory Report Ordering Provider Test Date Status RODRIGO SWIFT 10/11/2024 10:40:02 Final Rheumatoid factor at a level above 50 IU/mL may lead to an overestimation of the D-dimer level. A normal D-dimer result (<0.50 ug/mL FEU) has a negative predictive value of approximately 95% for the exclusion of acute pulmonary embolism (PE) or deep vein thrombosis when there is low or moderate pretest PE probability. Increased D-dimer values are abnormal but do not indicate a specific disease state and the D-dimer increase does not definitively correlate with clinical severity of disease. Observation Date Value Abnormality Reference (Units ) Status Fibrin D-dimer FEU [Mass/volume] in Platelet poor plasma by Immunoassay 10/11/2024 10:40:02 0.49 <0.50 (ug/mL FEU) Final Performing Location LABORATORY [facility] - [facility] [place] [facility] [address]
--- OUTSIDE RECORDS SUMMARY | 2024-10-24 23:58 | External Medical Summary ---
Author Name Unknown Address Unknown Organization [id number]:LABORATORY [facility] – [place] - [address] [place] [address] Laboratory Report Ordering Provider Test Date Status EFRAIN MOYER 10/11/2024 10:40:02 Final Observation Date Value Abnormality Reference (Units ) Status WBC, Total 10/11/2024 10:40:02 16.70 Above high normal 4.00-10.80 (K/uL) Final RBC 10/11/2024 10:40:02 3.53 4.50-5.25 (M/uL) Final Hemoglobin 10/11/2024 10:40:02 11.3 Below low normal 14.0-16.8 (g/dL) Final HCT 10/11/2024 10:40:02 35.8 Below low normal 40.0-48.4 (%) Final MCV 10/11/2024 10:40:02 101.4 82.0-99.5 (fL) Final MCH 10/11/2024 10:40:02 32.0 27.0-34.0 (pg) Final MCHC 10/11/2024 10:40:02 31.6 32.0-36.0 (g/dL) Final RDW 10/11/2024 10:40:02 14.3 11.5-15.5 (%) Final Platelets 10/11/2024 10:40:02 297 140-400 (K/uL) Final MPV 10/11/2024 10:40:02 10.1 6.6-11.1 (fL) Final Nucleated erythrocytes/100 leukocytes [Ratio] in Blood by Automated count 10/11/2024 10:40:02 0 <=0 (/100 WBCs) Final Performing Location LABORATORY [facility] [place] - [address] [place] [address]
--- OUTSIDE RECORDS SUMMARY | 2024-10-24 23:58 | External Medical Summary ---
Author Name Unknown Address Unknown Organization [id number]:[facility] [place] [address] Laboratory Report Ordering Provider Test Date Status EFRAIN MOYER 10/11/2024 10:40:02 Final Observation Date Value Abnormality Reference (Units ) Status Magnesium 10/11/2024 10:40:02 1.9 1.5-2.6 (m g/dL) Final Performing Location [facility] [place] [address]
--- OUTSIDE RECORDS SUMMARY | 2024-10-24 23:58 | External Medical Summary | Summary of Care ---
Author Name Unknown Organization [facility] Address [address] [place] [address] Phone [phone] Care Team Providers Care Coater Associate Name Role Phone Amos Pastrana MD Primary Care Provider + Reason for Visit * Reason Comments Rheum Follow Up Follow up - PMR Encounter Details Date Type Department Care Team (Late st Contact Info) Description 10/08/2024 3:00 PM EST Office Visit Rheumatology [address] [place] [address] Dari Florence CRNP [address] [place] [address] [place] [address] PMR (polymyalgia rheumatica) ([facility])*; Osteoporosis with symptom management only; Chronic kidney disease, stage 3a ([facility]); nursing home current use of systemic steroids; CLL (chronic lymphocytic leukemia) (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 Active Centrum Adults Oral Tablet 1 tab daily 1 Tablet 12/07/19 Active Metoprolol Succinate ER 25 MG Oral Tablet Extended Release 24 Hour (toPROL XL)Indications:Par oxysmal atrial fibrillation (HCC),Cardiac pacemaker in situ,SSS (sick sinus syndrome) (HCC),RBBB (right bundle branch block),HTN, goal below 140/90 Take 1 Tablet by mouth in the morning and 1 Tablet before bedtime. 180 Tablet 3 04/01/20 24 Active Ibrutinib 140 MG Oral Capsule (Imbruvica)Indicat ions:CLL (chronic lymphocytic leukemia) ([facility]) TAKE 3 CAPSULES BY MOUTH IN THE MORNING. TAKE MEDICATION AT SAME TIME EVERY DAY 90 Capsule 5 4 2:49 PM EST 06/07/20 24 025 Active hydroCHLOROthiazid e 12.5 MG Oral CapsuleIndications :HTN, goal below 150/90 Take 1 Capsule by mouth in the morning. 30 Capsule 5 06/12/20 24 Active Additional Information Patient not taking.Reported on 10/09/2024 Atorvastatin Calcium 20 MG Oral Tablet (Lipitor)Indicatio [...] bedtime. 60 Capsule 3 07/31/20 24 Active Ferrous Sulfate 27 MG Oral Tablet 1 Tablet. 10/05/20 24 Active predniSONE 5 MG Oral Tablet (Deltasone) Take 4 Tablets by mouth daily for 14 days, THEN 3 Tablets daily for 14 days, THEN 2 Tablets daily for 14 days, THEN 1.5 Tablets daily for 14 days, THEN 1 Tablet daily for 14 days. 161 Tablet 10/08/20 24 025 Active predniSONE 5 MG Oral Tablet (Deltasone)Indicat ions:PMR (polymyalgia rheumatica) (HCC) Take 1 Tablet by mouth in the morning. 90 Tablet 3 11/29/19 24 024 Discontin ued(Medic ation/Dos e Changed) predniSONE 20 MG Oral Tablet (Deltasone)Indicat ions:PMR (polymyalgia rheumatica) (HCC),Generalized osteoarthritis One daily 15 Tablet 10/04/20 24 024 Discontin ued(Medic ation/Dos e Changed) documented as of this encounter (statuses as of 10/11/2024) Active Problems Problem Noted Date Diagnosed Date [...] Lung nodule 10/30/2012 Overview (10/22/2018): RLL. Stable [id number]. 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 Consider lulu 5y. 03/24- EGD-stage C0-M1 per [place] criteria. No dysplasia. REC LULU 03/2018 Other specified glaucoma Generalized osteoarthritis Irritable bowel syndrome documented as of this encounter (statuses as of 10/11/2024) Resolved Problems Problem Noted Date Diagnosed Date [...] Thoracic . 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 11/23 PFTs WNL 06/22 colonoscopy WNL. +int hemorrhoids, divertic. 12/20 fell on ice-[facility]OC rec tendon repair knee 10/22 pt declined prostate screen Bradycardia 10/30/2012 01/07/2020 Dyslipidemia 10/05/2021 Rotator cuff injury 04/28/20 17 Overview (09/06/2012): right documented as of this encounter (statuses as of 10/11/2024) Immunizations Name Administration Dates Next Due COVID-19 mRNA, LNP-s, No Pre serve, 2-Dose Series (Moderna) 11/19/2021,05/25/2021,12/09/2020,11/04 COVID-19, MRNA-LNP, 24-25, P R, 30MCG/0.3ML, IM, 12YRS AND ABOVE ([employer]-Comirnaty) 06/12/2024 COVID-19, MRNA-LNP, PF, 30 M CG/0.3 [...] Sign Reading Time Taken Comments Blood Pressure - - Pulse - - Temperature 36.2 C (97.1 F) 10/08/2024 3:07 PM ES T Respiratory Rate - - Oxygen Saturation - - Inhaled Oxygen Concentration - - Weight 83 kg (183 lb) 10/08/2024 3:07 PM EST Height - - Body Mass Index 27.83 08/08/2024 6:19 PM EDT documented in this encounter Patient Instructions * Patient Instructions* Dari Florence CRNP - 10/08/2024 3:23 PM EST 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 This medication is available in a pill form or as a subcutaneous injection, usually taken once weekly. Side effects include but are not limited to GI upset, liver enzyme elevations, stomatitis (mouth sores), rash, alopecia (hair loss), persistent cough, unexplained shortness of breath, malignancies, or liver, kidney, and lung toxicities. Because methotrexate can lower the ability of your immune system to fight infections, there is an increased risk of developing infections. If any of the above-mentioned side effects occur, please inform your physician or rheumatology pharmacist so that we can take the next appropriate steps in your care. It is also advised that alcohol is avoided while on this medication. Please make your physician aware if you have kidney/liver damage, have interstitial lung disease, have Hepatitis B/C, have any active infection, planning to get any vaccinations, or if you have new or changed medications on your medication list as these factors may impact your care plan. It is also imperative that you inform your physician if you are or planning to become as risk has been demonstrated. This medication may take up to 4-12 weeks to see an effect on your joints. For your safety, we will monitor you routinely through a series of blood work. For further inquiries, please refer to the medication information provided to you as well as your rheumatology careteam. Hydroxychloroquine Oral Tablet Brands: Plaquenil Uses This medicine is used for the following purposes: arthritis autoimmune disorder blood disorder prevent malaria malaria calcium removal skin inflammation infections caused by bacteria Instructions Swallow the medicine without crushing or chewing it. Take the medicine with food. Store at room temperature away from heat, light, and moisture. Do not keep in the bathroom. Do not take antacids within 4 hours before or after this medicine. Tell your doctor if you have severe or persistent sweating, diarrhea or vomiting. These can increase your risk of a serious side effect. This medicine can make you sensitive to the sun. Use sunscreen or protective clothing when in sun. It is important that you keep taking each dose of this medicine on time even if you are feeling well. If you forget to take a dose on time, take it as soon as you remember. If it is almost time for thenext dose, do not take the missed dose. Return to your normal schedule. Do not take 2 doses at one time. Drug interactions can change how medicines work or increase risk for side effects. Tell your healthcare providers about all medicines taken. Include prescription and frwg-ryo-rctrokv medicines, vitamins, and herbal medicines. Speak with your doctor or pharmacist before starting or stopping any medicine. Tell your doctor if symptoms do not get better or if they get worse. This medicine may cause low blood sugar. Eat regular meals and exercise as instructed by your doctor. Tell your doctor if you have symptoms of low blood sugar such as nausea, sweating, cold skin, fast heartbeat, hunger, and irritability. Keep all appointments for medical exams and tests while on this medicine. Cautions Tell your doctor and pharmacist if you ever had an allergic reaction to a medicine. Some patients taking this medicine have experienced serious side effects. Please speak with your doctor to understand the risks and benefits associated with this medicine. Taking this medicine in high doses or for a long time can damage the eyes and cause blindness. Stoptaking this medicine and call your doctor immediately if you notice any changes in vision. These changes may be blurred vision, light streaks or flashes, or swelling or color changes in the eye. Do not use the medication any more than instructed. Your ability to stay alert or to react quickly may be impaired by this medicine. Do not drive or operate machinery until you know how this medicine will affect you. Please check with your doctor before drinking alcohol while on this medicine. This medicine passes into breast milk. Ask your doctor before . During , this medicine should be used only when clearly needed. Talk to your doctor about the risks and benefits. Do not share this medicine with anyone who has not been prescribed this medicine. Side Effects The following is a list of some common side effects from this medicine. Please speak with your doctor about what you should do if you experience these or other side effects. decreased appetite diarrhea dizziness headaches nausea and vomiting stomach upset or abdominal pain Call your doctor or get medical help right away if you notice any of these more serious side effects: loss of balance change in behavior bleeding or bruising confusion depression or feeling sad ear problems (ringing in the ears, hearing loss) swelling of the legs, feet, and hands fainting fever changes in hair color hair loss numbness or tingling in hands and feet hallucinations (unusual thoughts, seeing or hearing things that are not real) fast, irregular, or slow heartbeat signs of kidney damage (such as change in urine color or bubbly urine) seeing flashes or halos around lights sensitivity to light signs of liver damage (such as yellowing of eye or skin, dark urine, or unusual tiredness) mood changes uncontrollable movement of face, tongue, arms or legs muscle aches, spasms or abnormal movements muscle weakness pale or blue skin, lips or fingernails seizures shortness of breath suicidal thoughts swelling in the neck or throat blurring or changes of vision A few people may have an allergic reaction to this medicine. Symptoms can include difficulty breathing, skin rash, itching, swelling, or severe dizziness. If you notice any of these symptoms, seek medical help quickly. documented in this encounter Progress Notes * Dari Florence CRNP - 10/08/2024 3:05 PM EST Subjective: Patient seen today for further follow up evaluation of PMR and osteoporosis with an acute issues ofleft hand an right foot/ankle swelling. Is accompanied by his and 2 daughters. Reports a week and a half ago his left wrist started to swell and was painful. He then developed right ankle pain and swelling. Reports that he saw his PCP last week and was started on Prednisone 20 mg daily and disc ontinued, and restarted back on 5 mg daily. He was hospitalized at [facility] on 10/05-10/06 for a syncopal episode vasovagal versus orthostatic hypotension. He was then put back on Prednisone 20 mg taper and improved the swelling significantly. Since the last visit he continues conservative measures for osteoporosis. Denies interval falls or fractures. Continues taking vitamin-D and calcium supplements daily. Declines osteoporosis treatmentin the past. Musculoskeletal ROS: . Abnormal: joint pain and joint swelling . AM stiffness (hours): 0 . Pain scale (0-10): 4 . Fatigue scale (0-10): 0 . Job status: retired Other ROS: . Constitutional: normal . Head normal . Eyes: normal . Ears, nose, throat, mouth: normal . Cardiovascular: normal . Respiratory: normal . Gastrointestinal: normal . Genitourinary: normal . Skin: normal . Neurologic: normal All other ROS reviewed and negative. Pertinent positives listed in HPI. Social History: Social History Tobacco Use Smoking status: Former Current packs/day: 0.00 Average packs/day: 0.5 packs/day for 28.0 years (14.0 ttl pk-yrs) Types: Cigarettes Start date: 09/22/1961 Quit date: 09/22/1989 Years since quittin.0 Passive exposure: Never Smokeless tobacco: Never Substance Use Topics Alcohol use: Yes Alcohol/week: 19.0 standard drinks of alcohol Types: 3 5 oz of wine, 16 1.5 oz of liquor per week Comment: pt has approx 4oz gin/ every other night, wine Vaping/E-Cigarette Use Vaping/E-Cigarette Use Never User Vaping/E-Cigarette Substances Vaping/E-Cigarette Devices Current Outpatient Medications Medication Sig Dispense Refill COMBIGAN 0.2-0.5 % OP SOLN Instill 1 Drop into the right eye in the morning and 1 Drop before bedtime. Centrum Adults Oral Tablet 1 tab daily 1 Tablet 0 Metoprolol Succinate ER 25 MG Oral Tablet Extended Release 24 Hour (toPROL XL) Take 1 Tablet by mouth in the morning and 1 Tablet before bedtime. 180 Tablet 3 Ibrutinib 140 MG Oral Capsule (Imbruvica) TAKE 3 CAPSULES BY MOUTH IN THE MORNING. TAKE MEDICATION AT SAME TIME EVERY DAY 90 Capsule 5 Atorvastatin Calcium 20 MG Oral Tablet (Lipitor) TAKE 1 TABLET BY MOUTH EVERY DAY 90 Tablet 0 Apixaban 2.5 MG Oral Tablet (Eliquis) Take 1 Tablet by mouth in the morning and 1 Tablet before bedtime. Omeprazole 20 MG Oral Capsule Delayed Release (PriLOSEC) Take 1 Capsule by mouth in the morning and1 Capsule before bedtime. 60 Capsule 3 Ferrous Sulfate 27 MG Oral Tablet 1 Tablet. predniSONE 5 MG Oral Tablet (Deltasone) Take 4 Tablets by mouth daily for 14 days, THEN 3 Tablets daily for 14 days, THEN 2 Tablets daily for 14 days, THEN 1.5 Tablets daily for 14 days, THEN 1 Tablet daily for 14 days. 161 Tablet 0 hydroCHLOROthiazide 12.5 MG Oral Capsule Take 1 Capsule by mouth in the morning. (Patient not taking: Reported on 10/08/2024) 30 Capsule 5 No current facility-administered medications for this visit. Physical Exam: Temp 36.2 C (97.1 F) (Infrared ) | Wt 83 kg (183 lb) | BMI 27.83 kg/m | BSA 2 m General: alert, healthy, and no distress HENT: normocephalic, external ears normal, no mucosal erythema, no mucosal edema, moist mucosa, no oral ulcers Heart: regular rate & rhythm, no murmur, and no gallops Lungs: clear to auscultation , no rales, wheezes or rhonchi Extremities: no clubbing, no cyanosis, +2 pitting edema of right ankle Neuro Exam: alert & oriented x 3 with fluent speech, no focal motor/sensory deficits, gait normal Musculoskeletal Exam: A comprehensive musculoskeletal exam was performed for all joints of each upper and lower extremity and assessed for swelling, tenderness and range of motion. No peripheral joint tenderness. Good range of motion of all joints. No SI joint tenderness. Soft tissue edema of left hand and wrist, as well as right ankle +2 pitting. Latest Reference Range & Units 09/11/24 13:25 SODIUM 135 - 146 mmol/L 135 POTASSIUM 3.5 - 5.1 mmol/L 4.3 CHLORIDE 98 - 107 mmol/L 99 CO2 22 - 32 mmol/L 24 BUN 6 - 20 mg/dL 22 (H) CREATININE 0.6 - 1.2 mg/dL 1.3 (H) EGFR >=60 mL/min 55 (L) ANION GAP 7 - 15 mmol/L 12 GLUCOSE 70 - 120 mg/dL 112 CALCIUM 8.4 - 10.2 mg/dL 9.3 Protein 6.0 - 8.3 g/dL 6.2 LD <=250 U/L 259 (H) Uric Acid 3.4 - 7.0 mg/dL 4.6 Latest Reference Range & Units 09/11/24 13:25 CBC Rpt ! WBC 4.00 - 10.80 K/uL 16.90 (H) RBC 4.50 - 5.25 M/uL 3.58 HGB 14.0 - 16.8 g/dL 11.7 (L) HCT 40.0 - 48.4 % 36.0 (L) MCV 82.0 - 99.5 fL 100.6 MCH 27.0 - 34.0 pg 32.7 MCHC 32.0 - 36.0 g/dL 32.5 RDW 11.5 - 15.5 % 14.1 PLT 140 - 400 K/uL 269 MPV 6.6 - 11.1 fL 9.7 CBC WITH WBC DIFFERENTIAL Rpt ! Absolute Neutrophils 1.80 - 7.70 K/uL 11.49 (H) Absolute Lymphocytes 1.00 - 4.80 K/uL 3.89 Absolute Monocytes 0.00 - 1.10 K/uL 1.35 (H) Latest Reference Range & Units 09/11/24 13:25 Albumin 3.8 - 5.0 g/dL 3.4 (L) AST 10 - 50 U/L 14 ALT 10 - 50 U/L 10 Alkaline Phosphatase 35 - 130 U/L 76 Bilirubin, Total <=1.2 mg/dL 0.6 Latest Reference Range & Units 12/16/23 11:51 25-Hydroxy Vitamin D >19 ng/mL 41 25-HYDROXY VITAMIN D Rpt Rpt: View report in Results Review for more information Assessment: (M35.3) PMR (polymyalgia rheumatica) ([facility]) (primary encounter diagnosis) (M81.0) Osteoporosis with symptom management only (N18.31) Chronic kidney disease, stage 3a (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 Fragoso returns today for left and and left ankle swelling. Will message Dr. Penaloza about possible Methotrexate and Plaquenil as he see's him tomorrow as he treats his CLL. 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 Discussed Plaquenil and methotrexate benefits and side effects with the patient in his family. We will await Dr. Penaloza's response on which medication is appropriate. We will begin prednisone taper 20 mg daily x14 days, 15 mg x 14 days, 10 mg x 14 days, 7-1/2 mg x 14 days, then continue on 5 mg daily. Discussed benefits and side effects of prednisone. Patient agreeable to plan and verbalized understanding. Follow up 3 months. Advised patient to contact clinic with any questions, concerns, worsening symptoms. Plan: 1. Begin prednisone taper 2. Review information on Plaquenil methotrexate 3. We will contact Dr. Penaloza on medication options 4. Follow up 3 months 5. Labs: Hepatitis and TB studies 6. Contact clinic with any questions, concerns, worsening symptoms JUNAID Buchanan Department of Rheumatology I saw and examined the patient. I agree with the findings and plan as documented by Dari QUIROGA in this note. Exam consistent with RS3PE Alfredo Whitaker MD Rheumatology Department documented in this encounter Nursing Notes * Cira Loaiza LPN - 10/08/2024 3:03 PM EST Chief Complaint Patient presents with Rheum Follow Up Follow up - PMR Pt had a fall Tuesday night after syncope incident. Was taken by ambulance to the ER. Pt was put on 20mg of a prednisone taper, holding the 5mg daily while taking the taper dose. documented in this encounter Plan of Treatment Upcoming Encounters Date Type Department Care Team (Late st Contact Info) Description 10/23/2024 11:15 AM EST Immunization/Injecti on Hematology/Oncology Treatment, [place] [address] [place] [phone] 11/06/2024 10:30 AM EST Office Visit Cardiology, Eloyyvonne Gallo, [place] [address] [facility] [place] [address] Quyen Connolly CRNP [address] [facility] [place] [address] 12/04/2024 2:00 PM EST Laboratory Laboratory [facility] [address] [place] [id number] [facility] [address] [facility] [place] [address] 12/11/2024 2:00 PM EST Office Visit Hematology/Oncology [facility] [address] [facility] [place] [phone] Jesus Penaloza MD [address] [facility] [place] [address] 01/01/2025 10:40 AM EDT Office Visit Rheumatology [place] [address] [facility] [place] [address] Alfredo Whitaker MD [address] [place] [address] [place] [address] 02/11/2025 9:00 AM EDT Pharmacy Pharmacy Hematology Oncology [facility] [address] [place] [address] [facility] Hem/Onc [address] [place] [address] 05/15/2025 12:00 PM EDT Office [facility] [place] [address] [place] [address] Amos Pastrana MD [address] [place] [address] Pending Results Name Type Priority Associated Diagnoses Date /Time HEPATITIS B SURFACE ANTIBODY Lab Routine Encounter for screening for other viral diseases 10/11/2024 10:40 AM EST HEPATITIS B CORE ANTIBODIES IGG AND IGM Lab Routine Encounter for screening for other viral diseases 10/11/2024 10:40 AM EST HEPATITIS C ANTIBODY SCREEN WITH PROGRESSION TO HEPATITIS C RNA QUANTITATIVE Lab Routine Encounter for screening for other viral diseases 10/11/2024 10:40 AM EST HEPATITIS B SURFACE ANTIGEN Lab Routine Encounter for screening for other viral diseases 10/11/2024 10:40 AM EST QUANTIFERON TB GOLD PLUS Lab Routine Encounter for screening for other viral diseases 10/11/2024 10:40 AM EST G-6-PD, RBC Lab Routine Encounter for therapeutic drug monitoring 10/11/2024 10:40 AM EST Scheduled Orders Name Type Priority Associated Diagnoses Orde r Schedule HEPATITIS B SURFACE ANTIBODY Lab Routine Encounter for screening for other viral diseases Expected: 10/08/2024, Expires: 10/08/2025 HEPATITIS B CORE ANTIBODIES IGG AND IGM Lab Routine Encounter for screening for other viral diseases Expected: 10/08/2024, Expires: 10/08/2025 HEPATITIS C ANTIBODY SCREEN WITH PROGRESSION TO HEPATITIS C RNA QUANTITATIVE Lab Routine Encounter for screening for other viral diseases Expected: 10/08/2024, Expires: 10/08/2025 HEPATITIS B SURFACE ANTIGEN Lab Routine Encounter for screening for other viral diseases Expected: 10/08/2024, Expires: 10/08/2025 QUANTIFERON TB GOLD PLUS Lab Routine Encounter for screening for other viral diseases Expected: 10/08/2024, Expires: 10/08/2025 G-6-PD, RBC Lab Routine Encounter for therapeutic drug monitoring Expected: 10/08/2024, Expires: 10/08/2025 Health Maintenance Due Date Last Done Comments [...] Screening 01/26/2025 01/27/2024 CKD HGB USE SMARTSET 42836 09/17/202509/17, 09/17/2024, 09/11/2024, Additional history exists CKD PHOS USE SMARTSET 16801 10/11/2025 10/11/2024, 1 DTap/Tdap Vaccines (3 - Td or Tdap) 06/30/2032 06/30/2022, 10/30/2012 Pneumococcal Vaccine: 50+ Years Completed 07/25/2015, 10/10/2002 Zoster Vaccines Completed 09/26/2019, 08/11, 06/19/2019, Additional history exists Influenza Vaccine (FLU shot) Completed 12/2023, 06/15/2023, 06/16/2022, Additional history exists VITAMIN D LEVEL ONCE IN A LIFETIME-USE SMARTSET# [id number] Completed 09/17/2024, 12/16/2023, 12/17/2022 HPV (Gardasil) Vaccine [...] encounter Visit Diagnoses Diagnosis PMR (polymyalgia rheumatica) (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
--- OUTSIDE RECORDS SUMMARY | 2024-10-24 23:58 | External Medical Summary ---
Author Name Unknown Address Unknown Organization K01:[place] [facility] [place] [address] [place] [address] Laboratory Report Ordering Provider Test Date Status RODRIGO SWIFT 10/11/2024 10:40:02 Final Observation Date Value Abnormality Reference (Units ) Status CRP, low-sensitivity 10/11/2024 10:40:02 57 Above high normal <=5 (mg/L) Final Performing Location LABORATORY C - [address] [place] [address]
--- OUTSIDE RECORDS SUMMARY | 2024-10-24 23:58 | External Medical Summary ---
Author Name Unknown Address Unknown Organization K09:LABORATORY [facility] [address] [place] [address] Laboratory Report Ordering Provider Test Date Status EFRAIN MOYER 10/11/2024 10:40:02 Final Observation Date Value Abnormality Reference (Units ) Status BUN 10/11/2024 10:40:02 21 Above high normal 6-20 (mg/dL) Final Creatinine 10/11/2024 10:40:02 1.3 Above high normal 0.6-1.2 (mg/dL) Final Glomerular filtration rate/1.73 sq M.predicted [Volume Rate/Area] in Serum, Plasma or Blood by Creatinine-based formula (CKD-EPI) 10/11/2024 10:40:02 55 Below low normal >=60 (mL/min) Final eGFR is calculated based on the CKD-EPI 2020 equation. Sodium 10/11/2024 10:40:02 136 135-146 (m mol/L) Final Potassium 10/11/2024 10:40:02 4.0 3.5-5.1 (m mol/L) Final Cl 10/11/2024 10:40:02 98 98-107 (mm ol/L) Final CO2 10/11/2024 10:40:02 27 22-32 (mmo l/L) Final Anion gap 10/11/2024 10:40:02 11 7-15 (mmol /L) Final Glucose 10/11/2024 10:40:02 96 70-120 (mg /dL) Final Albumin 10/11/2024 10:40:02 3.3 Below low normal 3.8 -5.0 (g/dL) Final AST (Aspartate aminotransferase) 10/11/2024 10:40:02 30 10-50 (U/L) Fin al Alk Phos 10/11/2024 10:40:02 107 35-130 (U/ L) Final Bilirubin, Total 10/11/2024 10:40:02 0.5 <=1 .2 (mg/dL) Final Calcium 10/11/2024 10:40:02 9.2 8.4-10.2 ( mg/dL) Final Protein 10/11/2024 10:40:02 5.4 Below low normal 6.0 -8.3 (g/dL) Final ALT (Alanine aminotransferase) 10/11/2024 10:40:02 91 Above high normal 10-50 (U/L) Final Performing Location [facility] [place] [address]
--- OUTSIDE RECORDS SUMMARY | 2024-10-24 23:58 | External Medical Summary ---
Author Name Unknown Address Unknown Organization K01:[place] [facility] [place] [address] [facility] [address] Laboratory Report Ordering Provider Test Date Status EFRAIN MOYER 10/11/2024 10:40:02 Final Observation Date Value Abnormality Reference (Units ) Status SYNC LEUKOCYTES IN BLOOD BY AUTOMATED COUNT 10/11/2024 10:40:02 16.70 Above high normal 4.00-10.80 (K/uL) Final Segs 10/11/2024 10:40:02 70.0 40.0-75.0 (%) Final Lymphs % 10/11/2024 10:40:02 22.3 18.0-42.0 (%) Final Monos 10/11/2024 10:40:02 5.5 1.0-11.0 (%) Final Eosinophils 10/11/2024 10:40:02 0.3 0.0-6.0 (%) Final Basos 10/11/2024 10:40:02 0.4 0.0-2.0 (%) Final Immature Granulocyte, Percent 10/11/2024 10:40:02 1.5 0.0-2.0 (%) Final Absolute Segs 10/11/2024 10:40:02 11.69 Above high normal 1.80-7.70 (K/uL) Final Lymphs, absolute 10/11/2024 10:40:02 3.73 1.00-4.80 (K/ul) Final Monos, Abs 10/11/2024 10:40:02 0.92 0.00-1.10 (K/uL) Final Eos, Abs 10/11/2024 10:40:02 0.05 0.00-0.70 (K/uL) Final Basos, Abs 10/11/2024 10:40:02 0.06 0.00-0.20 (K/uL) Final Immature Granulocytes, Number 10/11/2024 10:40:02 0.25 Above high normal 0.00-0.20 (K/uL) Final Performing Location [facility] [place] [facility] [place] [address]
--- OUTSIDE RECORDS SUMMARY | 2024-10-24 23:58 | External Medical Summary ---
Author Name Unknown Address Unknown Organization K01:[place] [facility] [place] [address] [place] [address] Laboratory Report Ordering Provider Test Date Status RODRIGO SWIFT 10/11/2024 10:40:02 Final Observation Date Value Abnormality Reference (Units ) Status Erythrocyte sedimentation rate by Photometric method 10/11/2024 10:40:02 35 Above high normal <20 (mm/hour) Final Performing Location [place] [facility] [place] [address] [place] [address]
--- OUTSIDE RECORDS SUMMARY | 2024-10-24 23:58 | External Medical Summary ---
Author Name Unknown Address Unknown Organization : Laboratory Report Ordering Provider Test Date Status GONZALO GARDINER 10/11/2024 10:40:02 Final Observation Date Value Abnormality Reference (Units ) Status G6PD 10/11/2024 10:40:02 17.7 7.0-20.5 ( U/g Hgb) Final Test Performed at:
[facility]
[address] [place] [address]
Reji Calvert M.D., Ph.D.,Director of Laboratories Performing Location
--- OUTSIDE RECORDS SUMMARY | 2024-10-24 23:58 | External Medical Summary ---
Author Name Unknown Address Unknown Organization K01:[place] [place] [address] [place] [address] [place] [address] Laboratory Report Ordering Provider Test Date Status GONZALO GARDINER 10/11/2024 10:40:02 Final Observation Date Value Abnormality Reference (Units ) Status Hep C Ab 10/11/2024 10:40:02 Negative Negative Final Further HCV quantitative nafisa ting not performed per protocol. Performing Location [facility] [place] [address] [place] [address]
--- OUTSIDE RECORDS SUMMARY | 2024-10-24 23:58 | External Medical Summary ---
Author Name Unknown Address Unknown Organization K01:LABORATORY [facility] - [address] [place] [address] Laboratory Report Ordering Provider Test Date Status GONZALO GARDINER 10/11/2024 10:40:02 Final Observation Date Value Abnormality Reference (Units ) Status Hep B surface Ag 10/11/2024 10:40:02 Negative Neg ative Final Performing Location LABORATORY [facility] - [address] [place] [address]
--- OUTSIDE RECORDS SUMMARY | 2024-10-24 23:58 | External Medical Summary | Summary of Care ---
Author Name Unknown Organization [facility] Address [address] [place] [address] Phone [phone] Care Team Providers Care Optometric Technologist Name Role Phone Amos Pastrana MD Primary Care Provider + Reason for Visit * Reason Onset Date Comments Test Results 10/02/2024 Encounter Details Date Type Department Care Team (Late st Contact Info) Description 10/02/2024 Telephone General Internal Medicine [facility] [address] [facility] [place] [address] Jasmin Fabian PA-C [address] [place] [address] Test Results Allergies Active Allergy Reactions Criticality [...] as of this encounter (statuses as of 10/08/2024) Medications COMBIGAN 0.2-0.5 % OP SOLN Instill 1 Drop into the right eye in the morning and 1 Drop before bedtime. Active Centrum Adults Oral Tablet 1 tab daily 1 Tablet 12/07/19 23 Active Metoprolol Succinate ER 25 MG Oral Tablet Extended Release 24 Hour (toPROL XL)Indications:P aroxysmal atrial fibrillation ([facility]),Cardiac pacemaker in situ,SSS (sick sinus syndrome) ([facility]),RBBB (right bundle branch block),HTN, goal below 140/90 Take 1 Tablet by mouth in the morning and 1 Tablet before bedtime. 180 Tablet 3 04/01/20 24 Active Ibrutinib 140 MG Oral Capsule (Imbruvica)Indic ations:CLL (chronic lymphocytic leukemia) ([facility]) TAKE 3 CAPSULES BY MOUTH IN THE MORNING. TAKE MEDICATION AT SAME TIME EVERY DAY 90 Capsule 5 4 2:49 PM EST 06/07/20 24 025 Active hydroCHLOROthiaz maryse 12.5 MG Oral CapsuleIndicatio ns:HTN, goal below 150/90 Take 1 Capsule by mouth in the morning. 30 Capsule 5 06/12/20 24 Active Additional Information Patient not taking.Reported on 10/08/2024 Atorvastatin Calcium 20 MG Oral Tablet (Lipitor)Indicat [...] bedtime. 60 Capsule 3 07/31/20 24 Active predniSONE 5 MG Oral Tablet (Deltasone)Indic ations:PMR (polymyalgia rheumatica) ([facility]) Take 1 Tablet by mouth in the morning. 90 Tablet 3 11/29/19 24 024 Discontinu ed(Medicat ion/Dose Changed) predniSONE 20 MG Oral Tablet (Deltasone)Indic ations:PMR (polymyalgia rheumatica) ([facility]) Take 1 Tablet by mouth in the morning for 5 days. 5 Tablet 09/27/20 24 024 documented as of this encounter (statuses as of 10/08/2024) Active Problems Problem Noted Date Diagnosed Date [...] Lung nodule 10/30/2012 Overview (10/22/2018): RLL. Stable [id number]. 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 Consider lulu 5y. 03/24- EGD-stage C0-M1 per [facility] criteria. No dysplasia. REC LULU 03/2018 Other specified glaucoma Generalized osteoarthritis Irritable bowel syndrome documented as of this encounter (statuses as of 10/08/2024) Resolved Problems Problem Noted Date Diagnosed Date [...] . 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 11/23 PFTs WNL 06/22 colonoscopy WNL. +int hemorrhoids, divertic. 12/20 fell on ice-UOC rec tendon repair knee 10/22 pt declined prostate screen Bradycardia 10/30/2012 01/07/2020 Dyslipidemia 10/05/2021 Rotator cuff injury 04/28/20 17 Overview (09/06/2012): right documented as of this encounter (statuses as of 10/08/2024) Immunizations Name Administration Dates Next Due COVID-19 mRNA, LNP-s, No Pre serve, 2-Dose Series (Moderna) 11/19/2021,05/25/2021,12/09/2020,11/04 COVID-19, MRNA-LNP, 24-25, P R, 30MCG/0.3ML, IM, 12YRS AND ABOVE ([employer]) 06/12/2024 COVID-19, MRNA-LNP, PF, 30 M CG/0.3 mL, 12 YRS AND ABOVE, IM ([employer]) 07/02/2023 COVID-19, MRNA-LNP, PF, 50 M CG/0.5 mL, 12 YRS AND ABOVE, IM (MODERNA-Spikevax) 12/24/2023 Covid-19, Mrna, Lnp-s, Pf, B ivalent, 30 Mcg, IM, 12 yrs and above (Garpun) 02/24/2023,07/01/2022 Pneumococcal Conjugate Vacc, 13 Valent (Prevnar) [...] encounter Miscellaneous Notes * Telephone Encounter - Nahed Scott RN - 10/08/2024 3:52 PM EST Has appt tomorrow in clinic. * Telephone Encounter - Sam Stapleton RN - 10/02/2024 11:36 AM EST Sent Fundology message to patient with Jasmin's previous message. [...] Care Team (Late st Contact Info) Description 10/09/2024 2:00 PM EST Office Visit General Internal Medicine [facility] [place] [address] [place], [place] [address] Annalise Penaloza MD [address] [place], [place] [address] 10/23/2024 11:15 AM EST Immunization/Injecti on Hematology/Oncology Treatment, [place] [address] [place], [place] [phone] 11/06/2024 10:30 AM EST Office Visit Cardiology, [facility] [address] [facility] [place] [address] Quyen Connolly CRNP [address] [facility] [place] [address] 12/04/2024 2:00 PM EST Laboratory Laboratory [facility] [address] [place] [phone] [place], Lab [facility] [address] [facility] [place], [place] [address] 12/11/2024 2:00 PM EST Office Visit Hematology/Oncology [facility] [address] [place], [place] [phone] Jesus Penaloza MD [address] [place], [place] [address] 01/01/2025 10:40 AM EDT Office Visit Rheumatology [place] [address] [facility] [place], [place] [address] Alfredo Whitaker MD [facility] [place], [place] [address] 02/11/2025 9:00 AM EDT Pharmacy Pharmacy Hematology Oncology [facility] [address] [place] [address] [facility] [place] [facility] [address] [place] [address] 05/15/2025 12:00 PM EDT Office Visit Family Practice [facility] [address] [place] [address] Amos Pastrana MD [address] [place] [address] Health Maintenance Due Date Last Done Comments [...] Screening 01/26/2025 01/27/2024 CKD PHOS USE SMARTSET 44550 07/10/2025 07/10/2024 CKD HGB USE SMARTSET 58311 09/17/202509/17, 09/17/2024, 09/11/2024, Additional history exists DTap/Tdap Vaccines (3 - Td or Tdap) 06/30/2032 06/30/2022, 10/30/2012 Pneumococcal Vaccine: 50+ Years Completed 07/25/2015, 10/10/2002 Zoster Vaccines Completed 09/26/2019, 08/11, 06/19/2019, Additional history exists Influenza Vaccine (FLU shot) Completed 12/2023, 06/15/2023, 06/16/2022, Additional history exists VITAMIN D LEVEL ONCE IN A LIFETIME-USE SMARTSET# [id number] Completed 09/17/2024, 12/16/2023, 12/17/2022 HPV (Gardasil) Vaccine [...] filedocumented as of this encounter Care Teams Optometric Technologist Relationship Specialty Start Date End Date Amos Pastrana MD [address] [place] [address] PCP - General Family Medicine 04/28/24 documented as of this encounter
--- OUTSIDE RECORDS SUMMARY | 2024-10-24 23:58 | External Medical Summary | Summary of Care ---
Author Name Unknown Organization [facility] Address [address] [place] [address] Phone [phone] Care Team Providers Care Spanish Speaking Babysitter Name Role Phone Amos Pastrana MD Primary Care Provider + Reason for Visit * Reason Onset Date Comments Hospital Follow-Up Left hand swe lling, right foot swelling Hospital Follow-Up 10/15/2024 Encounter Details Date Type Department Care Team (Late st Contact Info) Description 10/09/2024 2:00 PM EST Office Visit General Internal Medicine [facility] [address] [facility] [place] [address] Annalise Penaloza MD [address] [place] [address] Syncope and collapse*; HTN, goal below 140/90; Chronic kidney disease, stage 3a ([facility]); PMR (polymyalgia rheumatica) ([facility]); Age-related osteoporosis without current pathological fracture; CLL (chronic lymphocytic leukemia) ([facility]); Vitamin B12 deficiency (dietary) anemia; Other iron deficiency anemia; Hospital discharge follow-up Allergies Active Allergy Reactions Criticality Noted Date [...] as of this encounter (statuses as of 10/15/2024) Medications COMBIGAN 0.2-0.5 % OP SOLN Instill 1 Drop into the right eye in the morning and 1 Drop before bedtime. Active Centrum Adults Oral Tablet 1 tab daily 1 Tablet 3 Active Metoprolol Succinate ER 25 MG Oral Tablet Extended Release 24 Hour (toPROL XL)Indications:P aroxysmal atrial fibrillation (HCC),Cardiac pacemaker in situ,SSS (sick sinus syndrome) ([facility] [...] 2:49 PM EST 4 06/07/20 25 Active hydroCHLOROthiaz maryse 12.5 MG Oral CapsuleIndicatio ns:HTN, goal below 150/90 Take 1 Capsule by mouth in the morning. 30 Capsule 5 4 Active Additional Information Patient not taking.Reported on 10/09/2024 Atorvastatin Calcium 20 MG Oral Tablet (Lipitor)Indicat [...] days. 161 Tablet 4 12/18/19 25 Active documented as of this encounter (statuses as of 10/15/2024) Active Problems Problem Noted Date Diagnosed Date [...] Lung nodule 10/30/2012 Overview (10/22/2018): RLL. Stable [id number]. 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 Consider lulu 5y. 03/24- EGD-stage C0-M1 per [place] criteria. No dysplasia. REC LULU 03/2018 Other specified glaucoma Generalized osteoarthritis Irritable bowel syndrome documented as of this encounter (statuses as of 10/15/2024) Resolved Problems Problem Noted Date Diagnosed Date [...] Thoracic . 10/28 4.6 thror aneurysm on [facility]--TTE orderd for 6mo 2017-f [facility] [place] copy on file 01/24 colon-WNL 01/22 ACC risk 24% declined statin. / PFTs WNL 06/22 colonoscopy WNL. +int hemorrhoids, divertic. 12/20 fell on ice-UOC rec tendon repair knee 10/22 pt declined prostate screen Bradycardia 10/30/2012 01/07/2020 Dyslipidemia 10/05/2021 Rotator cuff injury 04/28/20 17 Overview (09/06/2012): right documented as of this encounter (statuses as of 10/15/2024) Immunizations Name Administration Dates Next Due COVID-19 mRNA, LNP-s, No Pre serve, 2-Dose Series (Moderna) 11/19/2021,05/25/2021,12/09/2020,11/04 COVID-19, MRNA-LNP, 24-25, P R, 30MCG/0.3ML, IM, 12YRS AND ABOVE (TALON THERAPEUTICSirnatBangbite) 06/12/2024 COVID-19, MRNA-LNP, PF, 30 M CG/0.3 mL, 12 YRS AND ABOVE, IM ([employer]-Comirnaty) 07/02/2023 COVID-19, MRNA-LNP, PF, 50 M CG/0.5 mL, 12 YRS AND ABOVE, IM (MODERNA-Spikevax) 12/24/2023 Covid-19, Mrna, Lnp-s, Pf, B ivalent, 30 Mcg, IM, 12 yrs and above (Attracta) 02/24/2023,07/01/2022 Pneumococcal Conjugate Vacc, 13 Valent (Prevnar) [...] No 10/18/2023 Does the household have a [facility] source of income? (Household - [...] Sign Reading Time Taken Comments Blood Pressure 100/64 10/09/2024 2:25 PM EST Pulse 76 10/09/2024 2:25 PM EST Temperature 36.4 C (97.6 F) 10/09/2024 2:25 PM ES T Respiratory Rate 16 10/09/2024 2:25 PM EST Oxygen Saturation - - Inhaled Oxygen Concentration - - Weight 83.3 kg (183 lb 11.2 oz) 10/09/2024 2:25 PM EST Height - - Body Mass Index 27.93 08/08/2024 6:19 PM EDT documented in this encounter Progress Notes * Annalise Penaloza MD - 10/09/2024 2:24 PM EST HPI: Marv Fragoso is a 89 year old male with a history of CLL, thoracic aortic aneurysm without rupture, osteoarthritis of the knee, hypertension, hyperlipidemia, history of lung nodule, Carrington's esophagus, IBS, history of glaucoma, CKD with baseline creatinine of 1.2 to 1.3, osteoporosis, historyof iron-deficiency anemia, history of recurrent cellulitis of the lower leg , history of RBBB, paroxysmal atrial fibrillation and is on Eliquis, history of sick sinus syndrome and status post pacemaker placement, history of PMR and on chronic prednisone, who presents with: Chief Complaint Patient presents with Hospital Follow-Up Left hand swelling, right foot swelling Pt is here for the hospital follow up. Chart reviewed from the hospital including admission note, Hand P, consult notes, labs, EKG, imaging and discharge note including discharge meds. Patient states she is feeling better since went back home. Pt was admitted to the hospital on 10/05/2024 and was discharged on 10/06/2024 Admission Diagnosis : Syncopal episode, vasovagal versus orthostatic hypotension. Pt has been followed up by case reviewer and specialists. As per the review of the chart and discussion with the patient, he ended up in Emergency Room with complaint of pain to the left wrist, left hand swelling which was getting worse. Earlier this month he had a uric acid done which was within normal range. On 09/27/2024 he was seen by PCP and he was started on prednisone 20 mg x 5 days and had left upper extremities venous duplex done which was negative for DVT and negative for superficial thrombophlebitis. Patient was seen by Rheumatology yesterday for hospital follow-up and for history of PMR and osteoporosis. Patient had labs done yesterday and was advised to start Plaquenil and methotrexate possiblyfor ongoing left upper and lower extremity swelling and PMR. He was also given prednisone taper for2 weeks and then was advised to continue low dose of 5 mg orally once a day. In Emergency Room patient had CT head without contrast, ultrasound of venous duplex electrolyte extremity and ultrasound of carotid duplex bilateral. Labs showed CBC 15,000 which is chronically elevated secondary to his underlying CLL, hemoglobin 11, initial troponin was negative, UA unremarkable. Chest x-ray no infiltrate. In ER he was given 1 L of normal saline. Patient had last echocardiogram done on 02/13/2024 which showed EF 60 to 64%, [id number] AR, moderate TR, mildly enlarged aortic root at 4.2 cm moderately enlarged ascending aorta 4.9 cm. He was advised to hold home HCTZ, get random cortisol level, fall precautions, PT/OT evaluation. Patient had x-ray of the right foot to rule out fracture and cholesterol. It should be noted that patient had possibly tick bite and rash related to that end of July on 08/08/2024, was seen in unsure care with erythema migrans rash to left posterior shoulder and was started on doxycycline for 10 days. Later on August 10 when patient was seen by PCP they gave additional 4 days to complete 14 day course. Discharge medications 20 mg prednisone daily with taper and eventually continue 5 mg orally once a day. Patient was advised to get repeat blood work done especially CBC, CMP, magnesium and phosphorus. Hewas advised to use thigh-high compression stockings during the day to help with bilateral lower extremity swelling and was advised to hold his hydrochlorothiazide why at discharge and get a re-evaluation done. Patient Active Problem List Diagnosis Other specified glaucoma Generalized osteoarthritis Irritable bowel syndrome Carrington's esophagus Lung nodule HTN, goal below 140/90 Dyslipidemia CLL (chronic lymphocytic leukemia) ([facility]) Vitamin B12 deficiency (dietary) anemia Thoracic aortic aneurysm without rupture ([facility]) Primary osteoarthritis of right knee Aldrich's cyst of knee, right Sinus node dysfunction ([facility]) PMR (polymyalgia rheumatica) ([facility]) History of 2019 novel coronavirus disease (COVID-19) Age-related osteoporosis without current pathological fracture Sinus bradycardia Iron deficiency anemia Recurrent cellulitis of lower leg Chronic kidney disease, stage 3a ([facility]) Current Outpatient Medications Medication Sig Dispense Refill [...] taking: Reported on 10/08/2024) 30 Capsule 5 Atorvastatin Calcium 20 MG [...] daily for 14 days. 161 Tablet 0 No current facility-administered medications for this visit. The patient's medication list was reviewed and updated as needed. Review of patient's allergies indicates: Allergen Reactions Bactrim [Sulfamethoxazole-Trimethoprim] Edema face/lips/tongue Large angioedema 11/2021 (unclear if from bactrim or lisinopril) Azithromycin Unknown Pt states that he felt uncomfortable with this medication, and doesn't want to take it again Lisinopril Cough Reclast [Zoledronic Acid] Severe muscle pain Sildenafil Citrate Abdominal pain and Neuro complications (Please comment) "Viagra" headaches Sulfamethoxazole Other Reaction(s): angioedema Trimethoprim Other Reaction(s): angioedema Past Medical History: Diagnosis Date Anal lesion 11/30/201311/23 refer surg eval B12 deficiency 09/05/201808/27 start IM B12 Carrington's esophagus 11/26/2011 Short Segment- repeat EGD in 3 years Bradycardia 10/30/2012 CLL (chronic lymphocytic leukemia) (HCC) 07/18/2017 Dx 2017 Dyslipidemia, goal to be determined Former smoker 10/15/2013 Generalized osteoarthritis History of 2018 novel coronavirus disease (COVID-19) 10/28/202211/01 Hyperlipidemia 01/27/2016 Irritable bowel syndrome Lung nodule 70s Lyme disease 08/10/2024 Other specified glaucoma Prediabetes 01/16/2018 Prostatitis Pruritus ani 01/11/2014 Recurrent cellulitis of lower leg 03/21/2023 Rotator cuff injury right Sinus bradycardia 12/07/2022 Thoracic aortic aneurysm without rupture (HCC) 10/22/201804/[address] surg Social History Socioeconomic History Marital status: Spouse name: Macie Number of children: 2 Occupational History Occupation: retired Comment: [employer] [...] Yes Partners: Female Comment: , daughter in [place]. 1 biol grandkids, 2step. Other Topics Concern Blood Transfusions Yes Caffeine Concern Yes Comment: 1 quart black coffee/day Sleep Concern No Stress Concern No Weight Concern Yes Special Diet Yes Comment: Lower cholesterol foods Back Care Yes Comment: Physical Therapy for lower back pain Exercise Yes Comment: Stretching exercises r/t lower back pain Seat Belt Yes Social History Narrative 2 step grandkids-[place] student, Likes [employer]. 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 Social Needs Financial Resource Strain: Low Risk (10/18/2023) Financial Resource Strain Do you have any trouble paying for your medications, or do you think you might in the future? (Adult - for ages 18 years and over): No Food Insecurity: No Food Insecurity (10/18/2023) Food Insecurity Do you need food for this week? (Adult - for ages 18 years and over): No Transportation Needs: No Transportation Needs (10/18/2023) Transportation Needs Do you have trouble getting a ride to medical visits or work? (Adult - for ages 18 years and over):Never True Social Connections: Socially Integrated (10/18/2023) Social Connections How often do you feel lonely or isolated from those around you? (Adult - for ages 18 years and over): Never Housing Stability: Low Risk (10/18/2023) Housing Stability Do you currently live in a senior living or have no steady place to sleep at night? (Adult - for ages 18 years and over): No Do you think you are at risk of becoming homeless? (Adult - for ages 18 years and over): No Family History Problem Relation Name Age of [...] disorder Mother Mary part of bowel removed All system negative except as per hpi. OBJECTIVE: Blood pressure 100/64, pulse 76, temperature 97.6 F (36.4 C), resp. rate 16, weight 183 lb 11.2oz (83.3 kg). PHYSICAL EXAM: HEENT: PERRLA, EOMI, anicteric sclera, b/l tympanic membrane is pearly white, no erythema, no pharyngeal erythema, no lymphadenopathy, neck supple CVS: RRR, no murmurs, rubs or gallops, s1 s 2normal. RESP: clear to auscultation, no wheezing or crackles ABD: soft, NT/ND EXT: 1+ bilateral lower extremity edema is present, no cyanosis, peripheral pulses palpable bilaterally No large joint swelling, no redness, range of motion normal. Skin normal. Mood stable No focal weakness Today patient was accompanied by his family member and was in a wheelchair. ASSESSMENT AND PLAN: Syncope and collapse (Primary) Cup done in the hospital reviewed through the chart and also discussed with the patient. It was likely thought to be secondary to dehydration related orthostasis versus vasovagal episode. Patient is feeling much better at this time. Discussed fall precautions, hydration, continuing all the current m edications, follow up with all the sub speciality including Cardiology and Hematology-Oncology. HTN, goal below 140/90 - COMPREHENSIVE METABOLIC PANEL; Future; Expected date: 10/09/2024 Currently hydrochlorothiazide is on hold but we discussed as his lower extremity swelling is getting worse to restart hydrochlorothiazide in 24 to 48 hours once the electrolytes are back and stable. Chronic kidney disease, stage 3a ([facility]) - MAGNESIUM; Future; Expected date: 10/09/2024 - PHOSPHORUS; Future; Expected date: 10/09/2024 - COMPREHENSIVE METABOLIC PANEL; Future; Expected date: 10/09/2024 Avoid NSAIDs. PMR (polymyalgia rheumatica) ([facility]) Once prednisone taper is done we will continue prednisone 5 mg orally once a day, follow up with Rheumatology and we will discuss further with Hematology- Oncology whether to start methotrexate as farrecommendation by Rheumatology. Age-related osteoporosis without current pathological fracture Fall precautions discussed with the patient. CLL (chronic lymphocytic leukemia) ([facility]) - CBC WITH WBC DIFFERENTIAL; Future; Expected date: 10/09/2024 Vitamin B12 deficiency (dietary) anemia Continue B12 1 mg orally daily. Other iron deficiency anemia - CBC WITH WBC DIFFERENTIAL; Future; Expected date: 10/09/2024 Continue iron pill 1 every other day. Hospital discharge follow-up - DISCH MED RECON CUR MED LIS Patient is is currently on Eliquis 2.5 mg tablet 1 pill in the morning 1 at the bedtime for atrial fibrillation and rate is controlled. Annalise Penaloza MD documented in this encounter Nursing Notes * Pilar Michael LPN - 10/09/2024 2:25 PM EST The patient has been properly identified by confirmation of name and date of . Chief Complaint Patient presents with Hospital Follow-Up Left hand swelling, right foot swelling documented in this encounter Plan of Treatment Upcoming Encounters Date Type Department Care Team (Late st Contact Info) Description 10/23/2024 11:15 AM EST Immunization/Injecti on Hematology/Oncology Treatment, [place] [address] [facility] [phone] 11/06/2024 10:30 AM EST Office Visit Cardiology, [facility] [address] [facility] [place] [address] Quyen Connolly, CERTIFIED COATINGS INSPECTOR [address] [facility] [place] [address] 12/04/2024 2:00 PM EST Laboratory Laboratory [facility] [place] [address] [facility] [place] [phone] [facility] Lab [facility] [address] [facility] [place] [address] 12/11/2024 2:00 PM EST Office Visit Hematology/Oncology [facility] [place] [address] [facility] [place] [phone] Jesus Penaloza MD [address] [facility] [address] 01/01/2025 10:40 AM EDT Office Visit Rheumatology [facility] [address] [place] [address] Alfredo Whitaker MD [address] [facility] [place] [address] 02/11/2025 9:00 AM EDT Pharmacy Pharmacy Hematology Oncology [facility] [address] [place] [address] [facility] [place] Hem/Onc [address] [place] [address] 05/15/2025 12:00 PM EDT Office Visit Family Practice [facility] [address] [facility] [place] [address] Amos Pastrana MD [address] [place] [address] Health Maintenance Due Date Last Done Comments [...] Screening 01/26/2025 01/27/2024 CKD HGB USE SMARTSET 09009 10/11/202510/11, 10/11/2024, 09/17/2024, Additional history exists CKD PHOS USE SMARTSET 55079 10/11/2025 10/11/2024, 1 DTap/Tdap Vaccines (3 - Td or Tdap) 06/30/2032 06/30/2022, 10/30/2012 Pneumococcal Vaccine: 50+ Years Completed 07/25/2015, 10/10/2002 Zoster Vaccines Completed 09/26/2019, 08/11, 06/19/2019, Additional history exists Influenza Vaccine (FLU shot) Completed 12/2023, 06/15/2023, 06/16/2022, Additional history exists VITAMIN D LEVEL ONCE IN A LIFETIME-USE SMARTSET# 70652 Completed 09/17/2024, 12/16/2023, 12/17/2022 HPV (Gardasil) Vaccine [...] encounter Results * (ABNORMAL) COMPREHENSIVE METABOLIC PANEL (10/11/2024 10:40 AM EST) BUN 21(H) 6 - 20 mg/dL 10/11/2024 11:54 AM EST [facility]- CREATININE 1.3(H) 0.6 - 1.2 mg/dL 10/11/2024 11:54 AM EST [facility]02 EGFR 55(L) >=60 mL/min 10/11/2024 11:54 AM EST [facility]02 Comment:eGFR is calculated b ased on the CKD-EPI 2020 equation. SODIUM 136 135 - 146 mmol/L 10/11/2024 11:54 AM EST [facility]02 POTASSIUM 4.0 3.5 - 5.1 mmol/L 10/11/2024 11:54 AM EST [facility]02 CHLORIDE 98 98 - 107 mmol/L 10/11/2024 11:54 AM EST [facility]02 CO2 27 22 - 32 mmol/L 10/11/2024 11:54 AM EST [facility] ANION GAP 11 7 - 15 mmol/L 10/11/2024 11:54 AM EST [facility]02 GLUCOSE 96 70 - 120 mg/dL 10/11/2024 11:54 AM [facility] [place] 56- Albumin 3.3(L) 3.8 - 5.0 g/dL 10/11/2024 11:54 AM [facility] [place] 56- AST 30 10 - 50 U/L 10/11/2024 11:54 AM [facility] [place] 56- Alkaline Phosphatase 107 35 - 130 U/L 10/11/2024 11:54 AM [facility] [place] 56- Bilirubin, Total 0.5 <=1.2 mg/dL 10/11/2024 11:54 AM [facility] [place] 56- CALCIUM 9.2 8.4 - 10.2 mg/dL 10/11/2024 11:54 AM [facility] [place] 56- Protein 5.4(L) 6.0 - 8.3 g/dL 10/11/2024 11:54 AM [facility] [place] 56 ALT 91(H) 10 - 50 U/L 10/11/2024 11:54 AM [facility] Blood Venous blood specimen / Unknown Venipuncture / Unknown 10/11/2024 10:40 AM EST 10/11/2024 10:40 AM EST Annalise Penaloza MD LAB BLOOD ORDERABLES Fin al Result [facility] [address] [place] [address] * PHOSPHORUS (10/11/2024 10:40 AM EST) Phosphorus 2.6 2.5 - 4.8 mg/dL 10/11/2024 11:54 AM [facility] 56- Blood Venous blood specimen / Unknown Venipuncture / Unknown 10/11/2024 10:40 AM EST 10/11/2024 10:40 AM EST Annalise Penaloza MD LAB BLOOD ORDERABLES Fin al Result [facility] [address] [facility] [address] * MAGNESIUM (10/11/2024 10:40 AM EST) Magnesium 1.9 1.5 - 2.6 mg/dL 10/11/2024 11:54 AM EST [facility] 56-02 Blood Venous blood specimen / Unknown Venipuncture / Unknown 10/11/2024 10:40 AM EST 10/11/2024 10:40 AM EST Annalise Penaloza MD LAB BLOOD ORDERABLES Fin al Result [facility] 56-[address] [place] [address] documented in this encounter Visit Diagnoses Diagnosis Syncope and collapse- Primary HTN, goal below 140/90 Unspecified essential hypertension Chronic kidney disease, stage 3a (HCC) PMR (polymyalgia rheumatica) (HCC) Polymyalgia rheumatica Age-related osteoporosis without current pathological fracture Senile osteoporosis CLL (chronic lymphocytic leukemia) (HCC) Chronic lymphoid leukemia, without mention of having achieved remission Vitamin B12 deficiency (dietary) anemia Other vitamin B12 deficiency anemia Other iron deficiency anemia Hospital discharge follow-up Other follow-up examination documented in this encounter Care Teams Spanish Speaking Babysitter Relationship Specialty Start Date End Date Amos Pastrana MD [address] [facility] [place] [address] PCP - General Family Medicine 04/28/24 documented as of this encounter
--- OUTSIDE RECORDS SUMMARY | 2024-10-24 23:58 | External Medical Summary | Summary of Care ---
Author Name Unknown Organization [facility] Address [address] [place] [address] Phone [phone] Care Team Providers Care Production Designer Name Role Phone Amos Pastrana MD Primary Care Provider + Reason for Visit * Reason Comments Outpatient Testing Encounter Details Date Type Department Care Team (Late st Contact Info) Description 10/11/2024 10:50 AM EST Laboratory Laboratory [facility] [address] [place] [phone] [facility] Lab [facility] [address] [facility] [place] [address] PMR (polymyalgia rheumatica) ([facility]); Generalized osteoarthritis; Encounter for screening for other viral diseases; Encounter for therapeutic drug monitoring; CLL (chronic lymphocytic leukemia) ([facility]); Other iron deficiency anemia; Chronic kidney disease, stage 3a ([facility]); HTN, goal below 140/90 Allergies Active Allergy [...] (toPROL XL)Indications:P aroxysmal atrial fibrillation ([facility]),Cardiac pacemaker in situ,SSS (sick sinus syndrome) ([facility]),RBBB (right bundle branch block),HTN, goal below 140/90 Take 1 Tablet by mouth in the morning and 1 Tablet before bedtime. 180 Tablet 3 4 Active Ibrutinib 140 MG Oral Capsule (Imbruvica)Indic ations:CLL (chronic lymphocytic leukemia) ([facility]) TAKE 3 CAPSULES BY MOUTH IN [...] Lung nodule 10/30/2012 Overview (10/22/2018): RLL. Stable [id number]. 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 Consider lulu 5y. 03/24- EGD-stage C0-M1 per [place] criteria. No dysplasia. REC LULU 03/2018 Other [...] . 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--TTE orderd for 6mo 2017-f Living Salvatore [...] P R, 30MCG/0.3ML, IM, 12YRS AND ABOVE ([email or web address]) 06/12/2024 COVID-19, MRNA-LNP, PF, 30 M CG/0.3 mL, 12 YRS AND ABOVE, IM ([employer]natHouzz) 07/02/2023 COVID-19, MRNA-LNP, PF, 50 M CG/0.5 mL, 12 YRS AND ABOVE, IM (MODERNA-Spikevax) 12/24/2023 Covid-19, Mrna, Lnp-s, Pf, B ivalent, 30 Mcg, IM, 12 yrs and above (Plexxi) 02/24/2023,07/01/2022 Pneumococcal Conjugate Vacc, 13 Valent (Prevnar) [...] 11:15 AM EST Immunization/Injecti on Hematology/Oncology Treatment, [place] [address] [facility] [address] [place] [phone] 11/06/2024 10:30 AM EST Office Visit Cardiology, [facility] [address] [facility] [place] [address] Quyen Connolly CRNP [address] [facility] [place] [address] 12/04/2024 2:00 PM EST Laboratory Laboratory [facility] [address] [place] [phone] [place] [facility] [address] [place] [address] 12/11/2024 2:00 PM EST Office Visit Hematology/Oncology [facility] [place] [address] [place] [phone] Jesus Penaloza MD [address] [place] [address] 01/01/2025 10:40 AM EDT Office Visit Rheumatology [facility] [address] [place], [place] [address] Alfredo Whitaker MD [address] [facility] [place] [address] 02/11/2025 9:00 AM EDT Pharmacy Pharmacy Hematology Oncology [facility] [address] [place] [address] Gm, [facility] Hem/Onc [address] [place] [address] 05/15/2025 12:00 PM EDT Office Visit Family Practice [facility] [address] [place] [address] Amos Pastrana MD [address] [facility] [place] [address] Pending Results Name Type Priority Associated Diagnoses Date /Time D-DIMER Lab Routine PMR (polymyalgia rheumatica) (HCC) 10/11/2024 10:40 AM EST CRP (INFLAMMATORY MARKER) Lab Routine PMR (polymyalgia rheumatica) (HCC) Generalized osteoarthritis 10/11/2024 10:40 AM EST ERYTHROCYTE SEDIMENTATION RATE (ESR) Lab Routine PMR (polymyalgia rheumatica) (HCC) Generalized osteoarthritis 10/11/2024 10:40 AM EST HEPATITIS B SURFACE ANTIBODY Lab Routine Encounter [...] therapeutic drug monitoring 10/11/2024 10:40 AM EST CBC WITH WBC DIFFERENTIAL Lab Routine CLL (chronic lymphocytic leukemia) (HCC) Other iron deficiency anemia 10/11/2024 10:40 AM EST MAGNESIUM Lab Routine Chronic kidney disease, stage 3a (HCC) 10/11/2024 10:40 AM EST PHOSPHORUS Lab Routine Chronic kidney disease, stage 3a (HCC) 10/11/2024 10:40 AM EST COMPREHENSIVE METABOLIC PANEL Lab STAT HTN, goal below 140/90 Chronic kidney disease, stage 3a (HCC) 10/11/2024 10:40 AM EST HEPATITIS C ANTIBODY Lab Routine Encounter for screening for other viral diseases 10/11/2024 10:40 AM EST HEPATITIS C RNA ADD ON Lab Routine Encounter for screening for other viral diseases 10/11/2024 10:40 AM EST CBC Lab Routine CLL (chronic lymphocytic leukemia) (HCC) Other iron deficiency anemia 10/11/2024 10:40 AM EST DIFFERENTIAL, AUTOMATED Lab Routine CLL (chronic lymphocytic leukemia) (HCC) Other iron deficiency anemia 10/11/2024 10:40 AM EST Health Maintenance Due Date Last Done [...] Screening 01/26/2025 01/27/2024 CKD PHOS USE SMARTSET 82398 07/10/2025 07/10/2024 CKD HGB USE SMARTSET 17834 09/17/202509/17, 09/17/2024, 09/11/2024, Additional history exists DTap/Tdap Vaccines (3 - Td or Tdap) 06/30/2032 06/30/2022, 10/30/2012 Pneumococcal Vaccine: 50+ Years Completed 07/25/2015, 10/10/2002 Zoster Vaccines Completed 09/26/2019, 08/11, 06/19/2019, Additional history exists Influenza Vaccine (FLU shot) Completed 12/2023, 06/15/2023, 06/16/2022, Additional history exists VITAMIN D LEVEL ONCE IN A LIFETIME-USE SMARTSET# 11479 Completed 09/17/2024, 12/16/2023, 12/17/2022 HPV (Gardasil) Vaccine [...] encounter Visit Diagnoses Diagnosis PMR (polymyalgia rheumatica) (HCC) Polymyalgia rheumatica Generalized osteoarthritis Generalized osteoarthrosis, unspecified site Encounter for screening for other viral diseases Encounter for therapeutic drug monitoring CLL (chronic lymphocytic leukemia) (HCC) Chronic lymphoid leukemia, without mention of having achieved remission Other iron deficiency anemia Chronic kidney disease, stage 3a (HCC) HTN, goal below 140/90 Unspecified essential hypertension documented in this encounter Care Teams Production Designer Relationship Specialty Start Date End Date Amos Pastrana MD [address] [place] [address] PCP - General Family Medicine 04/28/24 documented as of this encounter
--- OUTSIDE RECORDS SUMMARY | 2024-10-24 23:58 | External Medical Summary | Summary of Care ---
Author Name Unknown Organization [facility] Address [address] [place] [address] Phone [phone] Care Team Providers Care Nuclear Reactor Operator Name Role Phone Amos Pastrana MD Primary Care Provider + Reason for Visit * Reason Comments Medication Administration Vitamin B12 1, 000mcg Encounter Details Date Type Department Care Team (Late st Contact Info) Description 10/23/2024 11:15 AM EST Immunization/I njection Hematology/Oncology Treatment, [place] [address] [place] [address] Vitamin B12 deficiency (dietary) anemia* Allergies [...] (Imbruvica)Indica tions:CLL (chronic lymphocytic leukemia) ([facility]) TAKE 3 CAPSULES BY MOUTH IN [...] Lung nodule 10/30/2012 Overview (10/22/2018): RLL. Stable [id number]. 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 Consider lulu 5y. 03/24- EGD-stage C0-M1 per [place] criteria. No dysplasia. REC LULU 03/2018 Other [...] P R, 30MCG/0.3ML, IM, 12YRS AND ABOVE ([employer]Comirnat[employer]o) 06/12/2024 COVID-19, MRNA-LNP, PF, 30 M CG/0.3 mL, 12 YRS AND ABOVE, IM (PFIZER-Comirnaty) 07/02/2023 COVID-19, MRNA-LNP, PF, 50 M CG/0.5 mL, 12 YRS AND ABOVE, IM (MODERNA-Spikevax) 12/24/2023 Covid-19, Mrna, Lnp-s, Pf, B ivalent, 30 Mcg, IM, 12 yrs and above ([employer]) 02/24/2023,07/01/2022 Pneumococcal Conjugate Vacc, 13 Valent (Prevnar) [...] 11:45 AM EST Immunization/Injectio n [facility]ematology[facility] [place] [facility] [phone] 12/04/2024 2:00 PM EST Laboratory Laboratory [facility] [address] [facility] [place] [phone] [address] [place] [address] 12/11/2024 2:00 PM EST Office Visit Hematology/Oncology [facility] [address] [facility] [place] [phone] Jesus Penaloza MD [address] [facility] [place] [address] 01/01/2025 10:40 AM EDT Office Visit Rheumatology [facility] [address] [place] [phone] Alfredo Whitaker MD [address] [facility] [place] [address] 02/11/2025 9:00 AM EDT Pharmacy Pharmacy Hematology Oncology [facility], [place] [address] [place] [address] [facility], [facility] Clinic Hem/Onc [address] [place] [facility] [place] [id number] 05/15/2025 12:00 PM EDT Office Visit [facility] [address] [place] [address] Amos Pastrana MD [address] [place] [address] Health Maintenance Due Date Last Done Comments [...] Screening 01/26/2025 01/27/2024 CKD HGB USE SMARTSET 14566 10/11/202510/11, 10/11/2024, 09/17/2024, Additional history exists CKD PHOS USE SMARTSET 13085 10/11/2025 10/11/2024, 1 DTap/Tdap Vaccines (3 - Td or Tdap) 06/30/2032 06/30/2022, 10/30/2012 Pneumococcal Vaccine: 50+ Years Completed 07/25/2015, 10/10/2002 Zoster Vaccines Completed 09/26/2019, 08/11, 06/19/2019, Additional history exists Influenza Vaccine (FLU shot) Completed 12/2023, 06/15/2023, 06/16/2022, Additional history exists VITAMIN D LEVEL ONCE IN A LIFETIME-USE SMARTSET# 84533 Completed 09/17/2024, 12/16/2023, 12/17/2022 HPV (Gardasil) Vaccine [...] Upper documented in this encounter Care Teams Nuclear Reactor Operator Relationship Specialty Start Date End Date Amos Pastrana MD [address] [place] [address] PCP - General Family Medicine 04/28/24 documented as of this encounter
--- OUTSIDE RECORDS SUMMARY | 2024-10-24 23:58 | External Medical Summary | Summary of Care ---
Author Name Unknown Organization [facility] Address [address] [place] [address] Phone [phone] Care Team Providers Care Psychologist Chief Name Role Phone Amos Pastrana MD Primary Care Provider + Reason for Visit * Reason Comments Rheum Follow Up Follow up - PMR Encounter Details Date Type Department Care Team (Late st Contact Info) Description 10/08/2024 3:00 PM EST Office Visit Rheumatology [address] [place] [address] Dari Florence CRNP [address] [place] [address] [place] [address] PMR (polymyalgia rheumatica) ([facility])*; Osteoporosis with symptom management only; Chronic kidney disease, stage 3a ([facility]); halfway current use of systemic steroids; CLL (chronic lymphocytic leukemia) ([facility]); RS3PE syndrome (remitting seronegative symmetrical synovitis with [...] (Imbruvica)Indicat ions:CLL (chronic lymphocytic leukemia) ([facility]) TAKE 3 CAPSULES BY MOUTH IN THE [...] Lung nodule 10/30/2012 Overview (10/22/2018): RLL. Stable [id number]. 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 Consider lulu 5y. 03/24- EGD-stage C0-M1 per [place] criteria. No dysplasia. REC LULU 03/2018 Other [...] [facility] CT--TTE orderd for 6mo 2017-f Living [...] P R, 30MCG/0.3ML, IM, 12YRS AND ABOVE (M[employer]-Comirnaty) 06/12/2024 COVID-19, MRNA-LNP, PF, 30 M CG/0.3 [...] about all medicines taken. Include prescription and [id number] medicines, vitamins, and herbal medicines. Speak with [...] 5 mg daily. He was hospitalized at [facility] on 10/05-10/06 for a syncopal episode vasovagal [...] more information Assessment: (M35.3) PMR (polymyalgia rheumatica) ([facility]) (primary encounter diagnosis) (M81.0) Osteoporosis with symptom management only (N18.31) Chronic kidney disease, stage 3a ([facility]) (Z79.52) watermaster current use of systemic steroids (C91.10) CLL (chronic lymphocytic leukemia) ([facility]) (M65.88, R60.9) RS3PE syndrome (remitting seronegative symmetrical [...] in this encounter Nursing Notes * Cira oLaiza LPN - 10/08/2024 3:03 PM EST Chief [...] 11:15 AM EST Immunization/Injecti on Hematology/Oncology Treatment, [place] [address] [place] [phone] 11/06/2024 10:30 AM EST Office Visit Cardiology, [place]ne Gallo, [place] [address] [facility] [place] [address] Quyen Connolly CRNP [address] [facility] [place] [address] 12/04/2024 2:00 PM EST Laboratory Laboratory [facility] [address] [place] [phone] [facility] Lab [facility] [address] [facility] [place] [address] 12/11/2024 2:00 PM EST Office Visit Hematology/Oncology [facility] [place] [phone] Jesus Penaloza MD [address] [facility] [place] [address] 01/01/2025 10:40 AM EDT Office Visit Rheumatology [place] [address] [facility] [place] [address] Alfredo Whitaker MD [address] [place] [address] [place], [place] [address] 02/11/2025 9:00 AM EDT Pharmacy Pharmacy Hematology Oncology [facility] [place] [address] [place] [address] [facility], [facility] Hem/Onc [address] [place] [address] 05/15/2025 12:00 PM EDT [facility] [place] [address] [place] [address] Amos Pastrana MD [address] [place] [address] Pending Results Name Type Priority Associated Diagnoses [...] Screening 01/26/2025 01/27/2024 CKD HGB USE SMARTSET 14680 09/17/202509/17, 09/17/2024, 09/11/2024, Additional history exists CKD PHOS USE SMARTSET 49318 10/11/2025 10/11/2024, 1 DTap/Tdap Vaccines (3 - Td or Tdap) 06/30/2032 06/30/2022, 10/30/2012 Pneumococcal Vaccine: 50+ Years Completed 07/25/2015, 10/10/2002 Zoster Vaccines Completed 09/26/2019, 08/11, 06/19/2019, Additional history exists Influenza Vaccine (FLU shot) Completed 12/2023, 06/15/2023, 06/16/2022, Additional history exists VITAMIN D LEVEL ONCE IN A LIFETIME-USE SMARTSET# 74711 Completed 09/17/2024, 12/16/2023, 12/17/2022 HPV (Gardasil) Vaccine [...] encounter Visit Diagnoses Diagnosis PMR (polymyalgia rheumatica) ([facility])- Primary Polymyalgia rheumatica Osteoporosis with symptom management only Osteoporosis, unspecified Chronic kidney disease, stage 3a (HCC) watermaster current use of systemic steroids Encounter for long-term (current) use of steroids CLL (chronic lymphocytic leukemia) (HCC) Chronic lymphoid leukemia, without mention of having achieved remission 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
[2024-10-25 06:39] LABS: Basophils # (auto) 0.03 K/uL (0.00-0.20); Basophils % (auto) 0.2 %; Eosinophils # (auto) 0.02 K/uL (0.00-0.50); Eosinophils % (auto) 0.1 %; Hematocrit (blood only) 32.9 % (42.0-52.0); Hemoglobin 10.9 g/dl (14.0-18.0); Immature Granulocytes # (auto) 0.18 K/uL (0.01-0.20); Immature Granulocytes % (auto) 1.1 %; Lymphocytes # (auto) 3.02 K/uL (1.20-3.40); Lymphocytes % (auto) 18.3 %; Mean Corpuscular Hemoglobin 31.3 pg (25.0-34.0); Mean Corpuscular Hgb Conc 33.1 g/dL (32.0-36.0); Mean Corpuscular Volume 94.5 fL (80.0-100.0); Mean Platelet Volume 9.7 fL (9.4-12.4); Monocytes # (auto) 0.91 K/uL (0.11-0.59); Monocytes % (auto) 5.5 %; Neutrophils % (auto) 74.8 %; Platelet Count 228 K/uL (130-400); RDW Coefficient of Variation 14.1 % (11.5-14.5); RDW Standard Deviation 48.3 fL (36.4-46.3); Red Blood Count 3.48 M/uL (4.70-6.10); White Blood Count 16.46 K/ul (4.8-10.8)
[2024-10-25 07:03] LABS: Calcium 8.2 mg/dl (8.6-10.3); Creatinine Clr Calc Pharmacy 50.4 ml/min; Potassium 4.2 mmol/L (3.5-5.1)
--- NOTE | 2024-10-25 07:42 | Electrocardiogram Report ---
Test Reason : Blood Pressure : */* mmHG Vent. Rate : 88 BPM Atrial Rate : 113 BPM P-R Int : * ms QRS Dur : 126 ms QT Int : 382 ms P-R-T Axes : * 11 -75 degrees QTcB Int : 462 ms Atrial fibrillation Non-specific intra-ventricular conduction block T wave abnormality, consider anterolateral ischemia Abnormal ECG When compared with ECG of 24-Oct-2024 15:41, No significant change was found Confirmed by Loco Avalos ([id number]) on 10/25/2024 7:42:40 AM Referred By: Amos Pastrana Confirmed By: Loco Avalos
--- NOTE | 2024-10-25 07:42 | Electrocardiogram Report ---
Test Reason : Blood Pressure : */* mmHG Vent. Rate : 81 BPM Atrial Rate : * BPM P-R Int : * ms QRS Dur : 120 ms QT Int : 394 ms P-R-T Axes : * 19 -45 degrees QTcB Int : 457 ms Atrial fibrillation Right bundle branch block Abnormal ECG When compared with ECG of 06-Oct-2024 06:01, Ventricular pacing is no longer present Confirmed by Loco Avalos ([id number]) on 10/25/2024 7:42:07 AM Referred By: Confirmed By: Loco Avalos
[2024-10-25] MEDS ORDERED: NON-FORMULARY MEDICATION (Ferrous Sulfate 27 mg iron Tablet) PO SCH (09:00)
[2024-10-25 09:08] LABS: A calco-baum cmplx NotReported Not Detected (NotDetected); Bact fragilis Not Reported Not Detected (NotDetected); Blood Culture Id Panel See PCR Comment (NotDetected); C auris Not Reported Not Detected (NotDetected); Calbicans Not Reported Not Detected (NotDetected); Candida glabrata Not Reported Not Detected (NotDetected); Candida krusei Not Reported Not Detected (NotDetected); Cneoformans/gatti Not Reported Not Detected (NotDetected); Cparapsilosis Not Reported Not Detected (NotDetected); E cloacae compx Not Reported Not Detected (NotDetected); Efaecalis Not Reported DETECTED (NotDetected); Efaecium Not Reported Not Detected (NotDetected); Enterobacterales Not Reported Not Detected (NotDetected); Escherichia coli Not Reported Not Detected (NotDetected); H influenzae Not Reported Not Detected (NotDetected); K aerogenes Not Reported Not Detected (NotDetected); Koxytoca Not Reported Not Detected (NotDetected); Kpneumoniae grp Not Reported Not Detected (NotDetected); Lmonocyt Not Reported Not Detected (NotDetected); N meningitidis Not Reported Not Detected (NotDetected); P aeruginosa Not Reported Not Detected (NotDetected); Proteus spp Not Reported Not Detected (NotDetected); Salmonella spp Not Reported Not Detected (NotDetected); Staph lugdunensis Not Reported Not Detected (NotDetected); Staph spp. Not Reported Not Detected (NotDetected); Staphaureus Not Reported Not Detected (NotDetected); Staphepi Not Reported Not Detected (NotDetected); Stenmaltophilia Not Reported Not Detected (NotDetected); Strep agal(GrpB) Not Reported Not Detected (NotDetected); Strep pneum Not Reported Not Detected (NotDetected); Strep pyog (GrpA) Not Reported Not Detected (NotDetected); Strep spp Not Reported Not Detected (NotDetected); VanAB Resistant Gene VRE Not Detected (NotDetected)
[2024-10-25] MEDS: ATORVASTATIN 20 MG TAB PO SCH (09:12)
[2024-10-25] MEDS: predniSONE 5 MG TAB PO SCH (09:12)
[2024-10-25 09:16] LABS: Enterococcus faecalis DETECTED (NotDetected)
[2024-10-25] MEDS ORDERED: VANCOMYCIN HCL 1,000 MG/270 ML BAG IV ONE (09:49)
[2024-10-25] MEDS ORDERED: VANCOMYCIN CONSULT ACTIVE PRN (09:49)
[2024-10-25] MEDS: VANCOMYCIN HCL 1,500 MG in SODIUM CHLORIDE 0.9% 500 ML IV ONE (11:05)
--- NOTE | 2024-10-25 12:26 | Pharmacy Report ---
Pharmacy PK ABX Note - Date of Service October 25, 2024 - Assessment and Plan Assessment 89 year old M receiving vancomycin for treatment of E. faecalis bacteremia. Pertinent microbiologic data includes: blood culture growing GPCs (4/4 bottles) Biofire ID identifying E. Faecalis, no Van A/B resistence genes detected, final identification and sensitivities pending. Pertinent past medical history includes CKD stage III, CLL on Imbruvica and polymyalgia rheumatica (on hydroxychloroquine and prednisone 5mg). He is currently on an increased dose of prednisone with a slow taper. Renal function appears to be at baseline. Day # 1 of antimicrobial therapy. Plan Vancomycin * Loading dose: 1500 mg IV x 1 * Maintenance dose: 1250 mg IV every 24 hours starting 10/25 @2100 * Regimen is predicted to achieve target AUC/COMFORT of 400-600 mg/L.hr * Random level ordered for: 10/29/24 @ 0900 Pharmacy will continue to follow and will adjust dose/frequency as necessary. Thank you. Pharmacy has transitioned to AUC monitoring for vancomycin. AUC/COMFORT is the pref erred PK/PD target and is associated with decreased risk of nephrotoxicity compared to traditional trough targets.
--- NOTE | 2024-10-25 15:55 | Hospitalist Progress Note ---
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 Denies CP, SOB In ER afebrile, BP: 101/72, P: 86, R: 14, 95% on room air WBC: 19 (chronically 15) likely from h/o CLL as well as steroid use Hgb: 11.7 (11.1 on 10/05/24) CT head: Cerebral atrophy and chronic small vessel ischemic disease CXR: No acute cardiopulmonary process. Troponin: 25-->19.7 EKG: atrial fibrillation, rate 81, nonspecific ST changes per my interpretation Weakness has been improving with intravenous fluid and antibiotic Will get PT and OT evaluation Gram-positive cocci bacteremia The patient is immunosuppressed and does not have the full-blown infection-has been on Plaquenil and also received recent course of tapering steroid and has CLL Presented without any fever but noted to have very low blood pressure and generalized weakness Blood culture 2 out of 2 is growing gram-positive cocci both aerobic and a naerobic bottles Started on intravenous vancomycin MRSA screen is negative and no evidence of pneumonia Likely port of entry skin without any acute infection any known wound noted but he does have generalized bruising Will get YELITZA and also ID evaluation down the line (2) Hyponatremia: Plan: Na: 129. Was 131 on 10/05/2024, 135 and 10/06/2024. 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 On chronic prednisone 5mg daily, however now on prolonged taper. Was started with 20 mg x 14 days, 15 mg x 14 days, 10 mg x 14 days, 7.5 mg x 14 days then continue on daily 5 mg. (Currently on day 3 of 14 of the 15mg daily dose). Continue prednisone taper Plaquenil was started on 10/17/24 Pt reports much improved left hand and right ankle/foot edema since starting new regimen Does not have any acute arthritis involving any of the joint (4) SSS (sick sinus syndrome): Plan: S/P pacemaker Pacemaker interrogation (5) CKD (chronic kidney disease), stage III: Plan: Cr: 1.1. Baseline Cr: 1.2-1.3 Monitor renal functions, avoid nephrotoxic agents when possible (6) CLL (chronic lymphocytic leukemia): Plan: WBC: 19 (chronically WBC 15) On Imbruvica Follows with [facility] oncology (7) PAF (paroxysmal atrial fibrillation): Plan: Anticoagulated on Eliquis Rate controlled Continue Eliquis, metoprolol succinate DVT Prophylaxis On Eilquis Admit med/tele Full Code as per discussion with pt Follows with Dr Pastrana for routine care Admission and Anticipated Discharge Date Admission Date: October 24, 2024 Subjective 10/25/2024 The patient was seen and examined in medical telemetry unit in presence of the family members He was admitted with profound weakness and noted to have a low blood pressure at home Now he is noted to have Staph aureus bacteremia and he is immunosuppressed Denies any significant symptoms and he has been feeling better since admission Review of Systems Review of Systems: All systems reviewed and are unremarkable except as noted below Physical Exam Physical Exam: Sitting on a chair without any acute distress Constitutional: well developed, well nourished, + ill appearing and + obese Eyes: PERRL, conjunctivae normal, anicteric sclerae ENMT: external ear and nose normal, oropharynx normal Neck: trachea midline, no thyromegaly Respiratory: no respiratory distress Auscultation: lungs clear to auscultation bilaterally Cardiovascular: Rate/Rhythm: regular rate and regular rhythm; not tachycardic Heart Sounds: normal S1 and normal S2; no murmur Extremities: + edema (Trace edema bilaterally) Gastrointestinal (Abdomen): Inspection/Auscultation: normal bowel sounds; abdomen not distended Percussion/Palpation: abdomen soft; abdomen nontender Musculoskeletal: Osteoarthritic changes involving the extremities but no acute arthritis in any of the joint Neurologic: normal touch/pain/proprioception and moves all extremities; no focal motor deficits Lymphatic: no cervical or axillary lymphadenopathy Results & Data Results & Data Vital Signs (Past 12 Hours) Vital Signs Temp Pulse Pulse Resp BP BP Pulse Ox 10/25/24 15:23 36.4 C L 77 18 102/68 97 10/25/24 15:14 85 10/25/24 11:27 36.8 C 82 18 91/62 L 95 10/25/24 09:27 10/25/24 07:50 37.1 C 75 18 113/75 95 10/25/24 07:38 76 10/25/24 03:54 37.2 C 82 18 112/71 93 O2 Del Method 10/25/24 15:23 Room Air 10/25/24 15:14 10/25/24 11:27 Room Air 10/25/24 09:27 Room Air 10/25/24 07:50 Room Air 10/25/24 07:38 10/25/24 03:54 Room Air Laboratory Results Short CBC 10/24/24 10/25/24 Range/Units 15:43 05:58 WBC 19.55 H 16.46 H (4.8-10.8) K/ul Hgb 11.7 L 10.9 L (14.0-18.0) g/dl Hct 34.9 L 32.9 L (42.0-52.0) % Plt Count 241 228 (130-400) K/uL BMP 10/24/24 10/25/24 15:43 05:58 Sodium 129 L 132 L Potassium 4.4 4.2 Chloride 97 L 101 Carbon Dioxide 24 26 BUN 31 H 26 H Creatinine 1.18 1.00 Glucose 124 H 92 Calcium 8.5 L 8.2 L Liver Function 10/24/24 Range/Units 15:43 Total Bilirubin 0.9 (0.2-1.0) mg/dl AST 31 (13-39) U/L ALT 35 (7-52) U/L Alkaline Phosphatase 75 (34-104) U/L Albumin 3.3 L (3.4-5.0) gm/dl Urine 10/24/24 Range/Units 17:42 Urine Color Yellow Urine Appearance Clear (Clear) Urine pH 6.0 (4.5-7.5) Ur Specific [place] 1.011 (1.000-1.030) Urine Protein Negative (Negative) Urine Glucose (UA) Negative (Negative) Medications Administered Current Inpatient Medications Acetaminophen (Acetaminophen 325 Mg Tab) 650 mg PO Q4H PRN PRN Reason: Pain or Fever Stop: 11/23/24 21:19 Apixaban (Apixaban 2.5 Mg Tab) 2.5 mg PO [facility] ON LICENSE OF [facility] Stop: 11/23/24 21:29 Last Admin: 10/25/24 09:12 Dose: 2.5 mg Atorvastatin Calcium (Atorvastatin 20 Mg Tab) 20 mg PO QAM ON LICENSE OF [facility] Stop: 11/24/24 08:59 Last Admin: 10/25/24 09:12 Dose: 20 mg Hydroxychloroquine Sulfate (Hydroxychloroquine Sulfate 200 Mg Tab) 300 mg PO HS ON LICENSE OF [facility] Stop: 11/23/24 21:29 Last Admin: 10/24/24 22:12 Dose: 300 mg Vancomycin HCl 1,250 mg/ (Sodium Chloride) 275 mls @ 200 mls/hr IV Q24H ON LICENSE OF [facility] Stop: 11/08/24 20:59 Metoprolol Succinate (Metoprolol Succ 25mg Ext Rel Tab) 25 mg PO BID ON LICENSE OF [facility] Stop: 11/23/24 21:29 Last Admin: 10/25/24 09:11 Dose: 25 mg Miscellaneous (Order Awaiting Action - Brimonidine-Timolol [Combigan] 0.2-0.5 % Drops) 1 each N/A QS ON LICENSE OF [facility] Stop: 11/24/24 00:00 Last Admin: 10/25/24 15:11 Dose: Not Given Miscellaneous Information (Vancomycin Consult Active) 1 each N/A UD PRN PRN Reason: Consult Stop: 11/24/24 09:48 Ondansetron HCl (Ondansetron Inj 2 Mg/Ml 2 Ml Vial) 4 mg IV Q6H PRN PRN Reason: Nausea Stop: 11/23/24 21:19 Pantoprazole Sodium (Pantoprazole 40 Mg Tab) 40 mg PO [facility] ON LICENSE OF [facility] Stop: 11/23/24 21:29 Last Admin: 10/25/24 09:12 Dose: 40 mg Polyethylene Glycol (Polyethylene (Miralax) 17 Gm Pack) 17 gm PO DAILY PRN PRN Reason: Constipation Stop: 11/23/24 21:19 Prednisone (Prednisone 5 Mg Tab) 15 mg PO DAILY ON LICENSE OF [facility] Stop: 11/06/24 08:59 Last Admin: 10/25/24 09:12 Dose: Not Given
[2024-10-25] MEDS: VANCOMYCIN HCL 1,250 MG in SODIUM CHLORIDE 0.9% 250 ML IV SCH (20:31)
[2024-10-26 06:15] LABS: Basophils # (auto) 0.03 K/uL (0.00-0.20); Basophils % (auto) 0.2 %; Eosinophils # (auto) 0.09 K/uL (0.00-0.50); Eosinophils % (auto) 0.6 %; Hematocrit (blood only) 32.7 % (42.0-52.0); Hemoglobin 10.6 g/dl (14.0-18.0); Immature Granulocytes # (auto) 0.16 K/uL (0.01-0.20); Immature Granulocytes % (auto) 1.1 %; Lymphocytes # (auto) 3.42 K/uL (1.20-3.40); Lymphocytes % (auto) 24.1 %; Mean Corpuscular Hemoglobin 30.7 pg (25.0-34.0); Mean Corpuscular Hgb Conc 32.4 g/dL (32.0-36.0); Mean Corpuscular Volume 94.8 fL (80.0-100.0); Mean Platelet Volume 9.9 fL (9.4-12.4); Monocytes % (auto) 7.1 %; Neutrophils # (auto) 9.47 K/uL (1.40-6.50); Neutrophils % (auto) 66.9 %; Platelet Count 229 K/uL (130-400); RDW Coefficient of Variation 14.4 % (11.5-14.5); RDW Standard Deviation 49.8 fL (36.4-46.3); Red Blood Count 3.45 M/uL (4.70-6.10); White Blood Count 14.17 K/ul (4.8-10.8)
[2024-10-26 06:28] LABS: BUN Creatinine Ratio 21.4 (10-20); Calcium 8.1 mg/dl (8.6-10.3); Potassium 4.2 mmol/L (3.5-5.1)
[2024-10-26] MEDS: ACETAMINOPHEN 325 MG TAB PO PRN (08:00)
--- NOTE | 2024-10-26 15:30 | Hospitalist Progress Note ---
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 Denies CP, SOB In ER afebrile, BP: 101/72, P: 86, R: 14, 95% on room air WBC: 19 (chronically 15) likely from h/o CLL as well as steroid use Hgb: 11.7 (11.1 on 10/05/24) CT head: Cerebral atrophy and chronic small vessel ischemic disease CXR: No acute cardiopulmonary process. Troponin: 25-->19.7 EKG: atrial fibrillation, rate 81, nonspecific ST changes per my interpretation Weakness has been improving with intravenous fluid and antibiotic Will get PT and OT evaluation Gram-positive cocci bacteremia The patient is immunosuppressed and does not have the full-blown infection-has been on Plaquenil and also received recent course of tapering steroid and has CLL Presented without any fever but noted to have very low blood pressure and generalized weakness Blood culture 2 out of 2 is growing gram-positive cocci both aerobic and anaerobic bottles Started on intravenous vancomycin MRSA screen is negative and no evidence of pneumonia Likely port of entry skin without any acute infection any known wound noted but he does have generalized bruising Will get YELITZA and also ID evaluation down the line Blood culture is growing Enterococcus faecalis and the serologies positive for Enterococcus faecalis as well Sensitivities pending Patient has been feeling a lot better and remains afebrile Will get ID evaluation (2) Hyponatremia: Plan: Na: 129. Was 131 on 10/05/2024, 135 and 10/06/2024. 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 On chronic prednisone 5mg daily, however now on prolonged taper. Was started with 20 mg x 14 days, 15 mg x 14 days, 10 mg x 14 days, 7.5 mg x 14 days then co ntinue on daily 5 mg. (Currently on day 3 of 14 of the 15mg daily dose). Continue prednisone taper Plaquenil was started on 10/17/24 Pt reports much improved left hand and right ankle/foot edema since starting new regimen Does not have any acute arthritis involving any of the joint (4) SSS (sick sinus syndrome): Plan: S/P pacemaker Pacemaker interrogation (5) CKD (chronic kidney disease), stage III: Plan: Cr: 1.1. Baseline Cr: 1.2-1.3 Monitor renal functions, avoid nephrotoxic agents when possible (6) CLL (chronic lymphocytic leukemia): Plan: WBC: 19 (chronically WBC 15) On Imbruvica Follows with [facility] [place] oncology White blood cell count is improving and it is at 14.17 on 10/26/2024 and he has CLL (7) PAF (paroxysmal atrial fibrillation): Plan: Anticoagulated on Eliquis Rate controlled Continue Eliquis, metoprolol succinate DVT Prophylaxis On Eilquis Admit med/tele Full Code as per discussion with pt Follows with Dr Pastrana for routine care Admission and Anticipated Discharge Date Admission Date: October 24, 2024 Subjective 10/25/2024 The patient was seen and examined in medical telemetry unit in presence of the family members He was admitted with profound weakness and noted to have a low blood pressure at home Now he is noted to have Staph aureus bacteremia and he is immunosuppressed Denies any significant symptoms and he has been feeling better since admission 10/26/2024 The patient was seen and examined in medical telemetry unit in presence of the family members The patient has been feeling a lot better and the white count is improving He denies any abdominal/GI symptoms and does not have any fever and no chills He wants to go home Review of Systems Review of Systems: All systems reviewed and are unremarkable except as noted below Physical Exam Physical Exam: Sitting on a chair without any acute distress Constitutional: well developed, well nourished, + ill appearing and + obese Eyes: PERRL, conjunctivae normal, anicteric sclerae ENMT: external ear and nose normal, oropharynx normal Neck: trachea midline, no thyromegaly Respiratory: no respiratory distress Auscultation: lungs clear to auscultation bilaterally Cardiovascular: Rate/Rhythm: regular rate and regular rhythm; not tachycardic Heart Sounds: normal S1 and normal S2; no murmur Extremities: + edema (Tra ce edema bilaterally) Gastrointestinal (Abdomen): Inspection/Auscultation: normal bowel sounds; abdomen not distended Percussion/Palpation: abdomen soft; abdomen nontender Neurologic: normal touch/pain/proprioception and moves all extremities; no focal motor deficits Lymphatic: no cervical or axillary lymphadenopathy Results & Data Results & Data Vital Signs (Past 12 Hours) Vital Signs Temp Pulse Resp BP Pulse Ox O2 Del Method 10/26/24 11:25 36.3 C L 60 18 110/78 97 Room Air 10/26/24 07:58 36.9 C 88 18 111/77 96 Room Air Laboratory Results Short CBC 10/26/24 Range/Units 05:54 WBC 14.17 H (4.8-10.8) K/ul Hgb 10.6 L (14.0-18.0) g/dl Hct 32.7 L (42.0-52.0) % Plt Count 229 (130-400) K/uL BMP 10/26/24 05:54 Sodium 133 L Potassium 4.2 Chloride 102 Carbon Dioxide 26 BUN 25 H Creatinine 1.17 Glucose 88 Calcium 8.1 L Medications Administered Current Inpatient Medications Acetaminophen (Acetaminophen 325 Mg Tab) 650 mg PO Q4H PRN PRN Reason: Pain or Fever Stop: 11/23/24 21:19 Last Admin: 10/26/24 08:00 Dose: 650 mg Apixaban (Apixaban 2.5 Mg Tab) 2.5 mg PO [facility] CHEMO Stop: 11/23/24 21:29 Last Admin: 10/26/24 08:00 Dose: 2.5 mg Atorvastatin Calcium (Atorvastatin 20 Mg Tab) 20 mg PO QAM CHEMO Stop: 11/24/24 08:59 Last Admin: 10/26/24 08:00 Dose: 20 mg Brimonidine Tartrate (Brimonidine Tartrate 0.2% 5ml) 1 drops OPR BID CHEMO Stop: 11/25/24 20:59 Hydroxychloroquine Sulfate (Hydroxychloroquine Sulfate 200 Mg Tab) 300 mg PO HS CHEMO Stop: 11/23/24 21:29 Last Admin: 10/25/24 20:49 Dose: 300 mg Vancomycin HCl 1,250 mg/ (Sodium Chloride) 275 mls @ 200 mls/hr IV Q24H CHEMO Stop: 11/08/24 20:59 Last Infusion: 10/25/24 22:15 Dose: Infused Metoprolol Succinate (Metoprolol Succ 25mg Ext Rel Tab) 25 mg PO BID [facility] Stop: 11/23/24 21:29 Last Admin: 10/26/24 08:00 Dose: 25 mg Miscellaneous Information (Vancomycin Consult Active) 1 each N/A UD PRN PRN Reason: Consult Stop: 11/24/24 09:48 Ondansetron HCl (Ondansetron Inj 2 Mg/Ml 2 Ml Vial) 4 mg IV Q6H PRN PRN Reason: Nausea Stop: 11/23/24 21:19 Pantoprazole Sodium (Pantoprazole 40 Mg Tab) 40 mg PO AM[facility] Stop: 11/23/24 21:29 Last Admin: 10/26/24 08:00 Dose: 40 mg Polyethylene Glycol (Polyethylene (Miralax) 17 Gm Pack) 17 gm PO DAILY PRN PRN Reason: Constipation Stop: 11/23/24 21:19 Prednisone (Prednisone 5 Mg Tab) 15 mg PO DAILY CHEMO Stop: 11/06/24 08:59 Last Admin: 10/26/24 08:00 Dose: 15 mg Timolol Maleate (Timolol Maleate 0.5% Op Soln 5 Ml Btl) 1 drops OPR BID [facility] Stop: 11/25/24 20:59
--- NOTE | 2024-10-26 16:24 | Infectious Disease Consult ---
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 Per chart review he has been going down on his dose of steroids for PMR. Denied cough, chest pain, change in stools. Had some pain under the right axilla. In the ED,temperature 36.8, pulse 86, respiratory rate 14, blood pressure 101/72, O2 sats 95% on room air. Labs: WBC 19.55, hemoglobin 11.7, hematocrit 34.9, sodium 129, BUN 31, creatinine 1.18. COVID/influenza, RSV testing negative. Troponin 19.7. Urinalysis with negative blood, negative nitrites, negative leukocyte esterase. CT head with cerebral atrophy and chronic small vessel disease. Chest x-ray with no acute cardiopulmonary process. Blood cultures growing E faecalis in 4 out of 4 bottles (per [facility] ID VRE negative. He has been started on vancomycin. ID consulted for bacteremia. A transthoracic echocardiogram done 10/26 showed no definite evidence of vegetation but this is a limited study. Aortic valve is mildly calcified. 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 Aortic root is moderately dilated. ID consulted for GPC bacteremia in immunocompromised patient. Microbiology: Blood cultures 10/24 4 out of 4 bottles positive for Enterococcus faecalis pending sensitivities (VRE not detected per [facility] ID) MRSA screen 10/25 negative Antibiotics: Vancomycin 10/25ongoing # Enterococcus faecalis bacteremia, rule out endocarditis/cardiac device infection # Pacemaker in place # Leukocytosis #PMR on chronic steroids #CLL on Imbruvica ( ibrutinib) Discussion: He presents with weakness. Labs noted for a leukocytosis. Etiology of the Enterococcus faecalis bacteremia is unclear. Per chart review no mention of GI or symptoms. No mention of skin breakdown, cellulitis, dental abnormalities. He does have an AICD in place. Enterococcal species are common causes of variety of infections including endocarditis, UTIs, bacteremia. Given the presence of AICD, would need to rule out endocarditis. He is immunocompromised on chronic steroids and ibrutinib. Recommendations -Repeat blood cultures ordered to ensure clearance -Continue IV vancomycin per pharmacy protocol -Follow-up E faecalis sensitivity. If sensitive to ampicillin, discontinue vancomycin and start ampicillin 2 g IV every 6 hours (creatinine clearance 43). If creatinine clearance > 50 then change to 2 g IV every 4 hours. If confirmed endocarditis or pacemaker/device infection will add ceftriaxone 2 g IV every 12 hours. -If abdominal pain, check CT abdomen pelvis -Check YELITZA to rule out endocarditis/device infection as E faecalis is the third leading cause of endocarditis. Econsult performed as no tele-presenter available for video visit at time consult placed. . Thank you for this consult. ID will continue to follow. ID will not round or review the chart over the weekend. Call covering provider at [facility] at [phone] with questions. ID coverage return on service , Tuesday10/29/24 Emilee Thakur MD, MPH Infectious Disease [facility], [facility] Consultation Information This patient recommendation is based on a telemedicine consult request which was completed asynchronously through chart review and information provided by the primary physician. The patient was not seen or examined today. The evaluation is consultative in nature and all patient care and treatment decisions can either b e accepted or rejected by the patient's primary hospital-based treating physician using their own independent medical judgment for their patient. Program Planner contact information: Please call [facility] Call Center . 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 Per chart review he has been going down on his dose of steroids for PMR. Denied cough, chest pain, change in stools. Had some pain under the right axilla. In the ED,temperature 36.8, pulse 86, respiratory rate 14, blood pressure 101/72, O2 sats 95% on room air. Labs: WBC 19.55, hemoglobin 11.7, hematocrit 34.9, sodium 129, BUN 31, creatinine 1.18. COVID/influenza, RSV testing negative. Troponin 19.7. Urinalysis with negative blood, negative nitrites, negative leukocyte esterase. CT head with cerebral atrophy and chronic small vessel disease. Chest x-ray with no acute cardiopulmonary process. Blood cultures growing E faecalis in 4 out of 4 bottles (per [facility] ID VRE negative. He has been started on vancomycin. ID consulted for bacteremia. A transthoracic echocardiogram done 10/26 showed no definite evidence of vegetation but this is a limited study. Aortic valve is mildly calcified. 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 Aortic root is moderately dilated. ID consulted for GPC bacteremia in immunocompromised patient. Allergies Allergy/AdvReac Type Severity Reaction Status Date / Time lisinopril Allergy angioedema Verified 10/05/24 12:26 sulfamethoxazole Allergy angioedema Verified 10/05/24 12:26 [From Bactrim] trimethoprim [From Bactrim] Allergy angioedema Verified 10/05/24 12:26 sildenafil AdvReac Intermediate HEADACHE Verified 11/16/21 12:03 Home Medications Medication Instructions Recorded Confirmed Type brimonidine 0.2 %-timolol 0.5 % 1 drp OPR BID 10/19/18 10/24/24 History eye drops (Combigan) ibrutinib 140 mg capsule 420 mg PO DAILY chemo 11/16/21 10/24/24 History (Imbruvica) atorvastatin 20 mg tablet 20 mg PO QAM 02/15/24 10/24/24 History metoprolol succinate 25 mg 25 mg PO BID 04/29/24 10/24/24 History tablet,extended release 24 hr apixaban 2.5 mg tablet (Eliquis) 2.5 mg PO AMHS 10/05/24 10/24/24 History ferrous sulfate 27 mg iron tablet 27 mg PO DAILY 10/05/24 10/24/24 History hydrochlorothiazide 12.5 mg capsule 12.5 mg PO DAILY 10/05/24 10/24/24 History prednisone 5 mg tablet 5 mg PO UD #45 tabs 10/06/24 10/24/24 Rx benzonatate 100 mg capsule 100 mg PO TID PRN Cough 10/24/24 10/24/24 History hydroxychloroquine 200 mg tablet 300 mg PO HS 10/24/24 10/24/24 History omeprazole 20 mg capsule,delayed 20 mg PO AMHS 10/24/24 10/24/24 History release Patient History Medical History HTN (hypertension) PMR (polymyalgia rheumatica) PAF (paroxysmal atrial fibrillation) Dyslipidemia SSS (sick sinus syndrome) CKD (chronic kidney disease), stage III GERD (gastroesophageal reflux disease) Surgical History S/P placement of cardiac pacemaker History of tonsillectomy History of appendectomy Family History Other Cancer FHx: alcoholism Social History Smoking Status: Former smoker Hx Alcohol Use: No Hx Substance Use: No Preferred Language: Dominican Communication Ability: Effective Circulation Man Required: No Beliefs That Will Affect Care: None Current Living Situation: Spouse Other Information That Helps Us Care for You: No Feels Safe at Home: Yes Safety Concerns: Feels Safe At This Time Assistive Devices: Glasses and Other Assistive Devices Comment: Partial Dentures - Upper, Lower Results & Data Vital Signs (Past 12 Hours) Vital Signs Temp Pulse Resp BP Pulse Ox O2 Del Method 10/26/24 16:15 36.4 C L 68 18 105/71 98 Room Air 10/26/24 11:25 36.3 C L 60 18 110/78 97 Room Air 10/26/24 07:58 36.9 C 88 18 111/77 96 Room Air Laboratory Results Laboratory Results - last 48 hr 10/24/24 10/24/24 10/24/24 15:43 17:31 17:42 WBC RBC Hgb Hct MCV MCH MCHC RDW Std Deviation RDW Coeff of Leonardo Plt Count MPV Immature Gran % (Auto) Neut % (Auto) Lymph % (Auto) Hardy % (Auto) Eos % (Auto) Baso % (Auto) Neut # (Auto) Lymph # (Auto) Hardy # (Auto) Eos # (Auto) Baso # (Auto) Immature Gran # (Auto) Sodium Potassium Chloride Carbon Dioxide Anion Gap BUN Creatinine Est Cr Clr Drug Dosing eGFR BUN/Creatinine Ratio Glucose Osmolality 278 L Calcium Troponin I High Sens TSH Urine Color Yellow Urine Appearance Clear Urine pH 6.0 Ur Specific [place] 1.011 Urine Protein Negative Urine Glucose (UA) Negative Urine Ketones Negative Urine Blood Negative Urine Nitrite Negative Urine Bilirubin Negative Urine Urobilinogen Negative Ur Leukocyte Esterase Negative Urine Osmolality 337 L Ur Random Sodium 23 Nasal Screen MRSA (PCR) SARS-CoV-2 (PCR) NEGATIVE Enterococc faecalis PCR Influenza Type A (PCR) Negative Influenza Type B (PCR) Negative RSV (RT-PCR) Negative Danielle/B-Vanco Res Genes Bld Cult ID Panel PCR 10/24/24 10/24/24 10/25/24 19:15 Unknown 05:58 WBC 16.46 H RBC 3.48 L Hgb 10.9 L Hct 32.9 L MCV 94.5 MCH 31.3 MCHC 33.1 RDW Std Deviation 48.3 H RDW Coeff of Leonardo 14.1 Plt Count 228 MPV 9.7 Immature Gran % (Auto) 1.1 Neut % (Auto) 74.8 Lymph % (Auto) 18.3 Hardy % (Auto) 5.5 Eos % (Auto) 0.1 Baso % (Auto) 0.2 Neut # (Auto) 12.30 H Lymph # (Auto) 3.02 Hardy # (Auto) 0.91 H Eos # (Auto) 0.02 Baso # (Auto) 0.03 Immature Gran # (Auto) 0.18 Sodium 132 L Potassium 4.2 Chloride 101 Carbon Dioxide 26 Anion Gap 5 BUN 26 H Creatinine 1.00 Est Cr Clr Drug Dosing 50.4 eGFR 72.84 BUN/Creatinine Ratio 26.0 H Glucose 92 Osmolality Calcium 8.2 L Troponin I High Sens 19.7 D TSH 0.767 Urine Color Urine Appearance Urine pH Ur Specific [place] Urine Protein Urine Glucose (UA) Urine Ketones Urine Blood Urine Nitrite Urine Bilirubin Urine Urobilinogen Ur Leukocyte Esterase Urine Osmolality Ur Random Sodium Nasal Screen MRSA (PCR) SARS-CoV-2 (PCR) Enterococc faecalis PCR DETECTED A Influenza Type A (PCR) Influenza Type B (PCR) RSV (RT-PCR) Danielle/B-Vanco Res Genes VRE Not Detected Bld Cult ID Panel PCR See PCR Comment 10/25/24 10/26/24 Unknown 05:54 WBC 14.17 H RBC 3.45 L Hgb 10.6 L Hct 32.7 L MCV 94.8 MCH 30.7 MCHC 32.4 RDW Std Deviation 49.8 H RDW Coeff of Leonardo 14.4 Plt Count 229 MPV 9.9 Immature Gran % (Auto) 1.1 Neut % (Auto) 66.9 Lymph % (Auto) 24.1 Hardy % (Auto) 7.1 Eos % (Auto) 0.6 Baso % (Auto) 0.2 Neut # (Auto) 9.47 H Lymph # (Auto) 3.42 H Hardy # (Auto) 1.00 H Eos # (Auto) 0.09 Baso # (Auto) 0.03 Immature Gran # (Auto) 0.16 Sodium 133 L Potassium 4.2 Chloride 102 Carbon Dioxide 26 Anion Gap 5 BUN 25 H Creatinine 1.17 Est Cr Clr Drug Dosing 43.0 eGFR 60.34 BUN/Creatinine Ratio 21.4 H Glucose 88 Osmolality Calcium 8.1 L Troponin I High Sens TSH Urine Color Urine Appearance Urine pH Ur Specific [place] Urine Protein Urine Glucose (UA) Urine Ketones Urine Blood Urine Nitrite Urine Bilirubin Urine Urobilinogen Ur Leukocyte Esterase Urine Osmolality Ur Random Sodium Nasal Screen MRSA (PCR) Negative SARS-CoV-2 (PCR) Enterococc faecalis PCR Influenza Type A (PCR) Influenza Type B (PCR) RSV (RT-PCR) Danielle/B-Vanco Res Genes Bld Cult ID Panel PCR Diagnostic Findings Microbiology 10/24/24 Unknown Blood Aerobic Blood Culture - Preliminary Enterococcus faecalis 10/24/24 Unknown Blood Anaerobic Blood Culture - Preliminary Enterococcus faecalis 10/24/24 20:08 Blood Aerobic Blood Culture - Preliminary Gram positive cocci 10/24/24 20:08 Blood Anaerobic Blood Culture - Preliminary Gram positive cocci Chest X-Ray 10/24/24 16:22 INDICATION: Weakness. TECHNIQUE: Frontal radiograph of the chest. COMPARISON: Radiograph from 10/05/2024. FINDINGS: Cardiomegaly. Mild eventration of the right hemidiaphragm again noted. Left-sided pacemaker again noted. Linear scarring/subsegmental atelectasis in the left lung base. Pulmonary vasculature appear within normal limits. No infiltrate, pleural effusion or pneumothorax. No acute osseous abnormality evident. IMPRESSION: No acute cardiopulmonary process. Electronically signed by Oliver Prieto 10-24-2024 5:[address] 10/24/24 16:22 Clinical History: Weakness Technique: Axial computed tomography images were obtained of the brain without intravenous contrast. Findings: There is diffuse cerebral atrophy, within expected limits for the patient's age. Areas of decreased attenuation are seen within the periventricular white matter, likely representing chronic small vessel ischemic disease. There is no definite sign of acute or old infarction. No intracranial hemorrhage is evident. No definite mass lesion is seen on this noncontrast examination. There is no midline shift or other form of herniation. No hydrocephalus is seen. No fracture is identified. The orbits and the visualized paranasal sinuses appear unremarkable. The mastoid air cells appear clear. Impression: 1. Cerebral atrophy and chronic small vessel ischemic disease 2. Otherwise unremarkable noncontrast CT of the brain Electronically signed by Warren Lu 10-24-2024 4:48 PM Medications Administered Home Medications Medication Instructions Recorded Confirmed Last Taken brimonidine 0.2 %-timolol 0.5 % 1 drp OPR BID 10/19/18 10/24/24 10/04/24 eye drops (Combigan) ibrutinib 140 mg capsule 420 mg PO DAILY chemo 11/16/21 10/24/24 10/05/24 (Imbruvica) atorvastatin 20 mg tablet 20 mg PO QAM 02/15/24 10/24/24 10/04/24 metoprolol succinate 25 mg 25 mg PO BID 04/29/24 10/24/24 10/04/24 tablet,extended release 24 hr apixaban 2.5 mg tablet (Eliquis) 2.5 mg PO AMHS 10/05/24 10/24/24 10/04/24 ferrous sulfate 27 mg iron tablet 27 mg PO DAILY 10/05/24 10/24/24 Unknown hydrochlorothiazide 12.5 mg capsule 12.5 mg PO DAILY 10/05/24 10/24/24 Unknown prednisone 5 mg tablet 5 mg PO UD #45 tabs 10/06/24 10/24/24 Unknown benzonatate 100 mg capsule 100 mg PO TID PRN Cough 10/24/24 10/24/24 Unknown hydroxychloroquine 200 mg tablet 300 mg PO HS 10/24/24 10/24/24 Unknown omeprazole 20 mg capsule,delayed 20 mg PO AMHS 10/24/24 10/24/24 Unknown release Active Medications Generic Name Dose Route Start Last Admin Trade Name Freq PRN Reason Stop Dose Admin Acetaminophen 650 mg 10/24/24 21:20 10/26/24 08:00 Acetaminophen 325 Mg Tab PO 11/23/24 21:19 650 mg Q4H PRN Administration Pain or Fever Apixaban 2.5 mg 10/24/24 21:30 10/26/24 08:00 Apixaban 2.5 Mg Tab PO 11/23/24 21:29 2.5 mg AMHS CHEMO Administration Atorvastatin Calcium 20 mg 10/25/24 09:00 10/26/24 08:00 Atorvastatin 20 Mg Tab PO 11/24/24 08:59 20 mg QAM CHEMO Administration Hydroxychloroquine Sulfate 300 mg 10/24/24 21:30 10/25/24 20:49 Hydroxychloroquine Sulfate 200 Mg Tab PO 11/23/24 21:29 300 mg HS CHEMO Administration Vancomycin HCl 1,250 mg/ 275 mls @ 200 mls/hr 10/25/24 21:00 10/25/24 22:15 Sodium Chloride IV 11/08/24 20:59 Infused Q24H CHEMO Infusion Metoprolol Succinate 25 mg 10/24/24 21:30 10/26/24 08:00 Metoprolol Succ 25mg Ext Rel Tab PO 11/23/24 21:29 25 mg BID CHEMO Administration Pantoprazole Sodium 40 mg 10/24/24 21:30 10/26/24 08:00 Pantoprazole 40 Mg Tab PO 11/23/24 21:29 40 mg AMHS CHEMO Administration Prednisone 15 mg 10/25/24 09:00 10/26/24 08:00 Prednisone 5 Mg Tab PO 11/06/24 08:59 15 mg DAILY CHEMO Administration (2) Elevated WBC count Leukocytosis type: unspecified Qualified Code(s): D72.829 - Elevated white blood cell count, unspecified
[2024-10-26] MEDS: BRIMONIDINE TARTRATE 0.2% 5ML OPR SCH (20:45)
[2024-10-26] MEDS: TIMOLOL MALEATE 0.5% OP SOLN 5 ML BTL OPR SCH (20:46)
[2024-10-27 06:58] LABS: Creatinine Clr Calc Pharmacy 47.1 ml/min
--- NOTE | 2024-10-27 15:05 | Hospitalist Progress Note ---
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 Denies CP, SOB In ER afebrile, BP: 101/72, P: 86, R: 14, 95% on room air WBC: 19 (chronically 15) likely from h/o CLL as well as steroid use Hgb: 11.7 (11.1 on 10/05/24) CT head: Cerebral atrophy and chronic small vessel ischemic disease CXR: No acute cardiopulmonary process. Troponin: 25-->19.7 EKG: atrial fibrillation, rate 81, nonspecific ST changes per my interpretation Weakness has been improving with intravenous fluid and antibiotic Will get PT and OT evaluation Gram-positive cocci bacteremia The patient is immunosuppressed and does not have the full-blown infection-has been on Plaquenil and also received recent course of tapering steroid and has CLL Presented without any fever but noted to have very low blood pressure and generalized weakness Blood culture 2 out of 2 is growing gram-positive cocci both aerobic and anaerobic bottles Started on intravenous vancomycin MRSA screen is negative and no evidence of pneumonia Likely port of entry skin without any acute infection any known wound noted but he does have generalized bruising Will get YELITZA and also ID evaluation down the line Blood culture is growing Enterococcus faecalis and the serologies positive for Enterococcus faecalis as well Patient has been feeling a lot better and remains afebrile Will get ID evaluation-appreciate ID input and recommendation Blood Sensitivities-Enterococcus faecalis sensitive to penicillin Echo of the heart showed LVEF of 65 to 70%, aortic valve is mildly calcified, aortic stenosis is absent, trace aortic regurgitation, there is mild tricuspid regurgitation, aortic root is moderately dilated at 4.5 cm, proximal ascending aorta is dilated to admit to moderate decrease at 4.4 cm no definite evidence of vegetations within the limitations of this imaging modality and no significant interval change compared with echo of 10/05/2024 Will start intravenous ampicillin 2 g Q4 hourly as per instructions and GFR is more than 50 and stop intravenous vancomycin Will ask for YELITZA as per recommendation by ID (2) Hyponatremia: Plan: Na: 129. Was 131 on 10/05/2024, 135 and 10/06/2024. 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 On chronic prednisone 5mg daily, however now on prolonged taper. Was started with 20 mg x 14 days, 15 mg x 14 days, 10 mg x 14 days, 7.5 mg x 14 days then continue on daily 5 mg. (Currently on day 3 of 14 of the 15mg daily dose). Continue prednisone taper Plaquenil was started on 10/17/24 Pt reports much improved left hand and right ankle/foot edema since starting new regimen Does not have any acute arthritis involving any of the joint (4) SSS (sick sinus syndrome): Plan: S/P pacemaker Pacemaker interrogation (5) CKD (chronic kidney disease), stage III: Plan: Cr: 1.1. Baseline Cr: 1.2-1.3 Monitor renal functions, avoid nephrotoxic agents when possible (6) CLL (chronic lymphocytic leukemia): Plan: WBC: 19 (chronically WBC 15) On Imbruvica Follows with [facility] oncology White blood cell count is improving and it is at 14.17 on 10/26/2024 and he has CLL (7) PAF (paroxysmal atrial fibrillation): Plan: Anticoagulated on Eliquis Rate controlled Continue Eliquis, metoprolol succinate DVT Prophylaxis On Eilquis Admit med/tele Full Code as per discussion with pt Follows with Dr Pastrana for routine care Admission and Anticipated Discharge Date Admission Date: October 24, 2024 Subjective 10/25/2024 The patient was seen and examined in medical telemetry unit in presence of the family members He was admitted with profound weakness and noted to have a low blood pressure at home Now he is noted to have Staph aureus bacteremia and he is immunosuppressed Denies any significant symptoms and he has been feeling better since admission 10/26/2024 The patient was seen and examined in medical telemetry unit in presence of the family members The patient has been feeling a lot better and the white count is improving He denies any abdominal/GI symptoms and does not have any fever and no chills He wants to go home Review of Systems Review of Systems: All systems reviewed and are unremarkable except as noted below Physical Exam Physical Exam: Sitting on a chair without any acute distress Constitutional: well developed, well nourished, + ill appearing and + obese Eyes: PERRL, conjunctivae normal, anicteric sclerae ENMT: external ear and nose normal, oropharynx normal Neck: trachea midline, no thyromegaly Respiratory: no respiratory distress Auscultation: lungs clear to auscultation bilaterally Cardiovascular: Rate/Rhythm: regular rate and regular rhythm; not tachycardic Heart Sounds: normal S1 and normal S2; no murmur Extremities: + edema (Trace edema bilaterally) Gastrointestinal (Abdomen): Inspection/Auscultation: normal bowel sounds; abdomen not distended Percussion/Palpation: abdomen soft; abdomen nontender Musculoskeletal: No acute arthritis involving any of the joint Neurologic: normal touch/pain/proprioception and moves all extremities; no focal motor deficits Lymphatic: no cervical or axillary lymphadenopathy Results & Data Results & Data Vital Signs (Past 12 Hours) Vital Signs Temp Pulse Pulse Resp BP BP Pulse Ox 10/27/24 14:44 36.4 C L 75 18 106/68 97 10/27/24 11:37 36.5 C 62 18 90/65 L 98 10/27/24 08:09 36.4 C L 84 18 129/83 93 10/27/24 07:15 97 H O2 Del Method 10/27/24 14:44 Room Air 10/27/24 11:37 Room Air 10/27/24 08:09 Room Air 10/27/24 07:15 Laboratory Results [facility] 10/27/24 05:54 Creatinine 1.07 Medications Administered Current Inpatient Medications Acetaminophen (Acetaminophen 325 Mg Tab) 650 mg PO Q4H PRN PRN Reason: Pain or Fever Stop: 11/23/24 21:19 Last Admin: 10/26/24 08:00 Dose: 650 mg Apixaban (Apixaban 2.5 Mg Tab) 2.5 mg PO AMHS [facility] Stop: 11/23/24 21:29 Last Admin: 10/27/24 07:47 Dose: 2.5 mg Atorvastatin Calcium (Atorvastatin 20 Mg Tab) [facility] [place] Stop: 11/24/24 08:59 Last Admin: 10/27/24 07:47 Dose: 20 mg Brimonidine Tartrate (Brimonidine Tartrate 0.2% 5ml) 1 drops OPR BID [facility] Stop: 11/25/24 20:59 Last Admin: 10/27/24 07:47 Dose: 1 drops Hydroxychloroquine Sulfate (Hydroxychloroquine Sulfate 200 Mg Tab) 300 mg PO HS [facility] Stop: 11/23/24 21:29 Last Admin: 10/26/24 20:43 Dose: 300 mg Vancomycin HCl 1,250 mg/ (Sodium Chloride) 275 mls @ 200 mls/hr IV Q24H CHEMO Stop: 11/08/24 20:59 Last Infusion: 10/26/24 22:30 Dose: Infused Metoprolol Succinate (Metoprolol Succ 25mg Ext Rel Tab) 25 mg PO BID [facility] Stop: 11/23/24 21:29 Last Admin: 10/27/24 07:47 Dose: 25 mg Miscellaneous Information (Vancomycin Consult Active) 1 each N/A UD PRN PRN Reason: Consult Stop: 11/24/24 09:48 Ondansetron HCl (Ondansetron Inj 2 Mg/Ml 2 Ml Vial) 4 mg IV Q6H PRN PRN Reason: Nausea Stop: 11/23/24 21:19 Pantoprazole Sodium (Pantoprazole 40 Mg Tab) 40 mg PO AMHS [facility] [place] Stop: 11/23/24 21:29 Last Admin: 10/27/24 07:47 Dose: 40 mg Polyethylene Glycol (Polyethylene (Miralax) 17 Gm Pack) 17 gm PO DAILY PRN PRN Reason: Constipation Stop: 11/23/24 21:19 Prednisone (Prednisone 5 Mg Tab) 15 mg PO DAILY [facility] Stop: 11/06/24 08:59 Last Admin: 10/27/24 07:47 Dose: 15 mg Timolol Maleate (Timolol Maleate 0.5% Op Soln 5 Ml Btl) 1 drops OPR BID [facility] Stop: 11/25/24 20:59 Last Admin: 10/27/24 07:47 Dose: 1 drops
[2024-10-27] MEDS: AMPICILLIN 2,000 MG in SODIUM CHLOR 0.9% MINI-B 100 ML IV SCH (16:04)
[2024-10-27 21:38] LABS: A calco-baum cmplx NotReported Not Detected (NotDetected); Bact fragilis Not Reported Not Detected (NotDetected); Blood Culture Id Panel See PCR Comment (NotDetected); C auris Not Reported Not Detected (NotDetected); Calbicans Not Reported Not Detected (NotDetected); Candida glabrata Not Reported Not Detected (NotDetected); Candida krusei Not Reported Not Detected (NotDetected); Cneoformans/gatti Not Reported Not Detected (NotDetected); Cparapsilosis Not Reported Not Detected (NotDetected); E cloacae compx Not Reported Not Detected (NotDetected); Efaecalis Not Reported DETECTED (NotDetected); Efaecium Not Reported Not Detected (NotDetected); Enterobacterales Not Reported Not Detected (NotDetected); Escherichia coli Not Reported Not Detected (NotDetected); H influenzae Not Reported Not Detected (NotDetected); K aerogenes Not Reported Not Detected (NotDetected); Koxytoca Not Reported Not Detected (NotDetected); Kpneumoniae grp Not Reported Not Detected (NotDetected); Lmonocyt Not Reported Not Detected (NotDetected); N meningitidis Not Reported Not Detected (NotDetected); P aeruginosa Not Reported Not Detected (NotDetected); Proteus spp Not Reported Not Detected (NotDetected); Salmonella spp Not Reported Not Detected (NotDetected); Staph lugdunensis Not Reported Not Detected (NotDetected); Staph spp. Not Reported Not Detected (NotDetected); Staphaureus Not Reported Not Detected (NotDetected); Staphepi Not Reported Not Detected (NotDetected); Stenmaltophilia Not Reported Not Detected (NotDetected); Strep agal(GrpB) Not Reported Not Detected (NotDetected); Strep pneum Not Reported Not Detected (NotDetected); Strep pyog (GrpA) Not Reported Not Detected (NotDetected); Strep spp Not Reported Not Detected (NotDetected); VanAB Resistant Gene VRE Not Detected (NotDetected)
[2024-10-27 21:46] LABS: Enterococcus faecalis DETECTED (NotDetected)
[2024-10-28 06:36] LABS: Creatinine Clr Calc Pharmacy 50.9 ml/min
[2024-10-28] MEDS: OPTIRAY 320 100ml IV ONE (10:55)
--- NOTE | 2024-10-28 11:20 | CT Scan Report ---
EXAM: CT Abdomen and Pelvis With Intravenous Contrast INDICATION: History of CLL. Evaluate for abscess. TECHNIQUE: Axial computed tomography images of the abdomen and pelvis with intravenous contrast. Sagittal and coronal reformatted images were created and reviewed. This CT exam was performed using one or more of the following dose reduction techniques: automated exposure control, adjustment of the mA and/or kV according to patient size, and/or use of iterative reconstruction technique. Oral contrast was administered. COMPARISON: No relevant prior studies available. FINDINGS: Limitations: None. Lung bases: Centrally calcified nodule right lung base consistent with a granuloma or hamartoma measuring 1.8 cm diameter. No further assessment required. Pleural space: There is a very small layering right pleural effusion. Heart: Cardiomegaly noted. Cardiac pacing device noted. Metallic artifact limits assessment of lead integrity. Mediastinum: No abnormality noted. ABDOMEN: Liver: No abnormality noted. Gallbladder and bile ducts: No calcified stones or surrounding fluid. Pancreas: Homogeneous enhancement. No mass, inflammation or ductal dilation. Spleen: No significant abnormality noted. Adrenals: No significant abnormality noted. Kidneys and ureters: Simple left renal cysts. No follow-up of these simple cysts is necessary. Right kidney appears normal. Stomach and bowel: There are bilateral inguinal hernias containing loops of nonobstructed colon. Redundant colon with multiple diverticula. Moderate amounts of stool in the right colon. No inflammation, thickening or obstruction. PELVIS: Appendix: No findings to suggest acute appendicitis. Bladder: No filling defects to suggest mass or large stone. No inflammation. Reproductive: Slightly lobulated appearance of the normal-sized prostate. ABDOMEN and PELVIS: Intraperitoneal space: No free air. No significant fluid collection. Bones/joints: No acute changes. Vasculature: Calcified ectatic aorta. No aneurysm or dissection. Lymph nodes: No pathologically enlarged lymph nodes. IMPRESSION: 1. No intra-abdominal or pelvic abscess. 2. Trace right pleural effusion. 3. Diverticulosis without diverticulitis. 4. Bilateral inguinal hernias containing nonobstructed colon. ACT 112: Negative or not required by law. Electronically signed by Keerthi Alcala 10-28-2024 11:20 AM
--- NOTE | 2024-10-28 14:31 | Hospitalist Progress Note ---
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 Denies CP, SOB In ER afebrile, BP: 101/72, P: 86, R: 14, 95% on room air WBC: 19 (chronically 15) likely from h/o CLL as well as steroid use Hgb: 11.7 (11.1 on 10/05/24) CT head: Cerebral atrophy and chronic small vessel ischemic disease CXR: No acute cardiopulmonary process. Troponin: 25-->19.7 EKG: atrial fibrillation, rate 81, nonspecific ST changes per my interpretation Weakness has been improving with intravenous fluid and antibiotic Will get PT and OT evaluation Denies any significant symptoms Gram-positive cocci bacteremia The patient is immunosuppressed and does not have the full-blown infection-has been on Plaquenil and also received recent course of tapering steroid and has CLL Presented without any fever but noted to have very low blood pressure and generalized weakness Blood culture 2 out of 2 is growing gram-positive cocci both aerobic and anaerobic bottles Started on intravenous vancomycin MRSA screen is negative and no evidence of pneumonia Likely port of entry skin without any acute infection any known wound noted but he does have generalized bruising Will get YELITZA and also ID evaluation down the line Blood culture is growing Enterococcus faecalis and the serologies positive for Enterococcus faecalis as well Patient has been feeling a lot better and remains afebrile Will get ID evaluation-appreciate ID input and recommendation Blood Sensitivities-Enterococcus faecalis sensitive to penicillin Echo of the heart showed LVEF of 65 to 70%, aortic valve is mildly calcified, aortic stenosis is absent, trace aortic regurgitation, there is mild tricuspid regurgitation, aortic root is moderately dilated at 4.5 cm, proximal ascending aorta is dilated to admit to moderate decrease at 4.4 cm no definite evidence of vegetations within the limitations of this imaging modality and no significant interval change compared with echo of 10/05/2024 Will start intravenous ampicillin 2 g Q4 hourly as per instructions and GFR is more than 50 and stop intravenous vancomycin Will ask for YELITZA as per recommendation by ID Repeat blood cultures pending (2) Hyponatremia: Plan: Na: 129. Was 131 on 10/05/2024, 135 and 10/06/2024. 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 On chronic prednisone 5mg daily, however now on prolonged taper. Was started with 20 mg x 14 days, 15 mg x 14 days, 10 mg x 14 days, 7.5 mg x 14 days then continue on daily 5 mg. (Currently on day 3 of 14 of the 15mg daily dose). Continue prednisone taper Plaquenil was started on 10/17/24 Pt reports much improved left hand and right ankle/foot edema since starting new regimen Does not have any acute arthritis involving any of the joint Denies any significant symptoms with arthritis and/or weakness (4) SSS (sick sinus syndrome): Plan: S/P pacemaker Pacemaker interrogation (5) CKD (chronic kidney disease), stage III: Plan: Cr: 1.1. Baseline Cr: 1.2-1.3 Monitor renal functions, avoid nephrotoxic agents when possible (6) CLL (chronic lymphocytic leukemia): Plan: WBC: 19 (chronically WBC 15) On Imbruvica Follows with [facility]ology White blood cell count is improving and it is at 14.17 on 10/26/2024 and he has CLL (7) PAF (paroxysmal atrial fibrillation): Plan: Anticoagulated on Eliquis Rate controlled Continue Eliquis, metoprolol succinate DVT Prophylaxis On Eilquis Admit med/tele Full Code as per discussion with pt Follows with Dr Pastrana for routine care Admission and Anticipated Discharge Date Admission Date: October 24, 2024 Subjective 10/25/2024 The patient was seen and examined in medical telemetry unit in presence of the family members He was admitted with profound weakness and noted to have a low blood pressure at home Now he is noted to have Staph aureus bacteremia and he is immunosuppressed Denies any significant symptoms and he has been feeling better since admission 10/26/2024 The patient was seen and examined in medical telemetry unit in presence of the family members The patient has been feeling a lot better and the white count is improving He denies any abdominal/GI symptoms and does not have any fever and no chills He wants to go home 10/27/2024 The patient was seen and examined in medical telemetry unit in presence of the family members He has been feeling much better and wants to go home Review of Systems Review of Systems: All systems reviewed and are unremarkable except as noted below Physical Exam Physical Exam: Sitting on a chair without any acute distress Constitutional: well developed, well nourished, + ill appearing and + obese Eyes: PERRL, conjunctivae normal, anicteric sclerae ENMT: external ear and nose normal, oropharynx normal Neck: trachea midline, no thyromegaly Respiratory: no respiratory distress Auscultation: lungs clear to auscultation bilaterally Cardiovascular: Rate/Rhythm: regular rate and regular rhythm; not tachycardic Heart Sounds: normal S1 and normal S2; no murmur Extremities: + edema (Trace edema bilaterally) Gastrointestinal (Abdomen): Inspection/Auscultation: normal bowel sounds; abdomen not distended Percussion/Palpation: abdomen soft; abdomen nontender Neurologic: normal touch/pain/proprioception and moves all extremities; no focal motor deficits Lymphatic: no cervical or axillary lymphadenopathy Results & Data Results & Data Vital Signs (Past 12 Hours) Vital Signs Temp Pulse Pulse Resp BP BP Pulse Ox 10/28/24 12:12 36.3 C L 76 18 97 10/28/24 08:48 10/28/24 07:24 36.4 C L 80 20 127/81 97 10/28/24 07:08 72 10/28/24 02:30 36.7 C 62 16 135/92 97 O2 Del Method 10/28/24 12:12 Room Air 10/28/24 08:48 Room Air 10/28/24 07:24 Room Air 10/28/24 07:08 10/28/24 02:30 Room Air
--- NOTE | 2024-10-28 14:34 | Hospitalist Progress Note ---
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 Denies CP, SOB In ER afebrile, BP: 101/72, P: 86, R: 14, 95% on room air WBC: 19 (chronically 15) likely from h/o CLL as well as steroid use Hgb: 11.7 (11.1 on 10/05/24) CT head: Cerebral atrophy and chronic small vessel ischemic disease CXR: No acute cardiopulmonary process. Troponin: 25-->19.7 EKG: atrial fibrillation, rate 81, nonspecific ST changes per my interpretation Weakness has been improving with intravenous fluid and antibiotic Will get PT and OT evaluation Denies any significant symptoms Gram-positive cocci bacteremia The patient is immunosuppressed and does not have the full-blown infection-has been on Plaquenil and also received recent course of tapering steroid and has CLL Presented without any fever but noted to have very low blood pressure and generalized weakness Blood culture 2 out of 2 is growing gram-positive cocci both aerobic and anaerobic bottles Started on intravenous vancomycin MRSA screen is negative and no evidence of pneumonia Likely port of entry skin without any acute infection any known wound noted but he does have generalized bruising Will get YELITZA and also ID evaluation down the line Blood culture is growing Enterococcus faecalis and the serologies positive for Enterococcus faecalis as well Patient has been feeling a lot better and remains afebrile Will get ID evaluation-appreciate ID input and recommendation Blood Sensitivities-Enterococcus faecalis sensitive to penicillin Echo of the heart showed LVEF of 65 to 70%, aortic valve is mildly calcified, aortic stenosis is absent, trace aortic regurgitation, there is mild tricuspid regurgitation, aortic root is moderately dilated at 4.5 cm, proximal ascending aorta is dilated to admit to moderate decrease at 4.4 cm no definite evidence of vegetations within the limitations of this imaging modality and no significant interval change compared with echo of 10/05/2024 Will start intravenous ampicillin 2 g Q4 hourly as per instructions and GFR is more than 50 and stop intravenous vancomycin Will ask for YELITZA as per recommendation by ID YELITZA has been pending Repeat blood culture is positive for streptococci in chain and further identification is pending CT scan of the abdomen pelvis with oral and IV contrast remained unremarkable Will continue current antibiotic with ampicillin (2) Hyponatremia: Plan: Na: 129. Was 131 on 10/05/2024, 135 and 10/06/2024. 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 On chronic prednisone 5mg daily, however now on prolonged taper. Was started with 20 mg x 14 days, 15 mg x 14 days, 10 mg x 14 days, 7.5 mg x 14 days then continue on daily 5 mg. (Currently on day 3 of 14 of the 15mg daily dose). Continue prednisone taper Plaquenil was started on 10/17/24 Pt reports much improved left hand and right ankle/foot edema since starting new regimen Does not have any acute arthritis involving any of the joint Denies any significant symptoms with arthritis and/or weakness (4) SSS (sick sinus syndrome): Plan: S/P pacemaker Pacemaker interrogation (5) CKD (chronic kidney disease), stage III: Plan: Cr: 1.1. Baseline Cr: 1.2-1.3 Monitor renal functions, avoid nephrotoxic agents when possible (6) CLL (chronic lymphocytic leukemia): Plan: WBC: 19 (chronically WBC 15) On Imbruvica Follows with [facility] [place] oncology White blood cell count is improving and it is at 14.17 on 10/26/2024 and he has CLL (7) PAF (paroxysmal atrial fibrillation): Plan: Anticoagulated on Eliquis Rate controlled Continue Eliquis, metoprolol succinate The heart rate remains stable DVT Prophylaxis On Eilquis Admit med/tele Full Code as per discussion with pt Follows with Dr Pastrana for routine care Admission and Anticipated Discharge Date Admission Date: October 24, 2024 Subjective 10/25/2024 The patient was seen and examined in medical telemetry unit in presence of the family members He was admitted with profound weakness and noted to have a low blood pressure at home Now he is noted to have Staph aureus bacteremia and he is immunosuppressed Denies any significant symptoms and he has been feeling better since admission 10/26/2024 The patient was seen and examined in medical telemetry unit in presence of the family members The patient has been feeling a lot better and the white count is improving He denies any abdominal/GI symptoms and does not have any fever and no chills He wants to go home 10/27/2024 The patient was seen and examined in medical telemetry unit in presence of the family members He has been feeling much better and wants to go home 10/28/2024 The patient was seen and examined in medical telemetry unit in presence of the He has been stable and denies any symptoms Denies any abdominal pain, any nausea vomiting or diarrhea Review of Systems Review of Systems: All systems reviewed and are unremarkable except as noted below Physical Exam Physical Exam: Sitting on a chair without any acute distress Constitutional: well developed, well nourished, + ill appearing and + obese Eyes: PERRL, conjunctivae normal, anicteric sclerae ENMT: external ear and nose normal, oropharynx normal Neck: trachea midline, no thyromegaly Respiratory: no respiratory distress Auscultation: lungs clear to auscultation bilaterally Cardiovascular: Rate/Rhythm: regular rate and regular rhythm; not tachycardic Heart Sounds: normal S1 and normal S2; no murmur Extremities: + edema (Trace edema bilaterally) Gastrointestinal (Abdomen): Inspection/Auscultation: normal bowel sounds; abdomen not distended Percussion/Palpation: abdomen soft; abdomen nontender Neurologic: normal touch/pain/proprioception and moves all extremities; no focal motor deficits Lymphatic: no cervical or axillary lymphadenopathy Results & Data Results & Data Vital Signs (Past 12 Hours) Vital Signs Temp Pulse Pulse Resp BP Pulse Ox O2 Del Method 10/28/24 12:12 36.3 C L 76 18 97 Room Air 10/28/24 08:48 Room Air 10/28/24 07:24 36.4 C L 80 20 127/81 97 Room Air 10/28/24 07:08 72 Laboratory Results BMP 10/28/24 05:48 Creatinine 0.99 Medications Administered Current Inpatient Medications Acetaminophen (Acetaminophen 325 Mg Tab) 650 mg PO Q4H PRN PRN Reason: Pain or Fever Stop: 11/23/24 21:19 Last Admin: 10/26/24 08:00 Dose: 650 mg Apixaban (Apixaban 2.5 Mg Tab) 2.5 mg PO AMHS [facility] Stop: 11/23/24 21:29 Last Admin: 10/28/24 07:56 Dose: 2.5 mg Atorvastatin Calcium (Atorvastatin 20 Mg Tab) 20 mg PO QAM [facility] Stop: 11/24/24 08:59 Last Admin: 10/28/24 07:56 Dose: 20 mg Brimonidine Tartrate (Brimonidine Tartrate 0.2% 5ml) 1 drops OPR BID [facility] Stop: 11/25/24 20:59 Last Admin: 10/28/24 07:56 Dose: 1 drops Hydroxychloroquine Sulfate (Hydroxychloroquine Sulfate 200 Mg Tab) 300 mg PO HS [facility] Stop: 11/23/24 21:29 Last Admin: 10/27/24 21:18 Dose: 300 mg Ampicillin Sodium 2,000 mg/ (Sodium Chloride) 100 mls @ 200 mls/hr IV Q4H [facility] Stop: 11/10/24 15:59 Last Infusion: 10/28/24 12:25 Dose: Infused Metoprolol Succinate (Metoprolol Succ 25mg Ext Rel Tab) 25 mg PO BID [facility] Stop: 11/23/24 21:29 Last Admin: 10/28/24 07:56 Dose: 25 mg Ondansetron HCl (Ondansetron Inj 2 Mg/Ml 2 Ml Vial) 4 mg IV Q6H PRN PRN Reason: Nausea Stop: 11/23/24 21:19 Pantoprazole Sodium (Pantoprazole 40 Mg Tab) 40 mg PO AMHS [facility] Stop: 11/23/24 21:29 Last Admin: 10/28/24 07:56 Dose: 40 mg Polyethylene Glycol (Polyethylene (Miralax) 17 Gm Pack) 17 gm PO DAILY PRN PRN Reason: Constipation Stop: 11/23/24 21:19 Prednisone (Prednisone 5 Mg Tab) 15 mg PO DAILY [facility] Stop: 11/06/24 08:59 Last Admin: 10/28/24 07:56 Dose: 15 mg Timolol Maleate (Timolol Maleate 0.5% Op Soln 5 Ml Btl) 1 drops OPR BID [facility]MO Stop: 11/25/24 20:59 Last Admin: 10/28/24 07:56 Dose: 1 drops
[2024-10-29 09:47] LABS: Basophils # (auto) 0.05 K/uL (0.00-0.20); Basophils % (auto) 0.4 %; Eosinophils # (auto) 0.14 K/uL (0.00-0.50); Hematocrit (blood only) 33.9 % (42.0-52.0); Hemoglobin 11.1 g/dl (14.0-18.0); Immature Granulocytes # (auto) 0.22 K/uL (0.01-0.20); Immature Granulocytes % (auto) 1.6 %; Lymphocytes # (auto) 3.02 K/uL (1.20-3.40); Lymphocytes % (auto) 21.9 %; Mean Corpuscular Hemoglobin 30.8 pg (25.0-34.0); Mean Corpuscular Hgb Conc 32.7 g/dL (32.0-36.0); Mean Corpuscular Volume 94.2 fL (80.0-100.0); Mean Platelet Volume 9.6 fL (9.4-12.4); Monocytes # (auto) 0.63 K/uL (0.11-0.59); Monocytes % (auto) 4.6 %; Neutrophils # (auto) 9.73 K/uL (1.40-6.50); Neutrophils % (auto) 70.5 %; Platelet Count 270 K/uL (130-400); RDW Coefficient of Variation 14.1 % (11.5-14.5); RDW Standard Deviation 48.5 fL (36.4-46.3); White Blood Count 13.79 K/ul (4.8-10.8)
[2024-10-29 10:03] LABS: BUN Creatinine Ratio 17.3 (10-20); Calcium 8.7 mg/dl (8.6-10.3); Creatinine Clr Calc Pharmacy 37.9 ml/min
--- NOTE | 2024-10-29 10:26 | Communication Note ---
Date of Service: October 29, 2024 Chart reviewed, patient history discussed in detail with patient and . 89-year-old male admitted with sepsis, Enterococcus bacteremia. Underlying history of calcific aortic valve disease, indwelling pacemaker Patient referred for transesophageal echocardiogram. No contraindications to procedure. Denies dysphagia esophageal or GI disease. No prior difficulties with sedation Patient had meal this morning. Will arrange for transesophageal echocardiogram 10/30/2023 7:15 AM N.p.o. after midnight
--- NOTE | 2024-10-29 13:33 | Hospitalist Progress Note ---
Date of Service October 29, 2024 Assessment & Plan (1) Bacteremia due to Enterococcus: (2) CLL (chronic lymphocytic leukemia): (3) PMR (polymyalgia rheumatica): (4) PAF (paroxysmal atrial fibrillation): (5) CKD (chronic kidney disease), stage III: (6) History of permanent cardiac pacemaker placement: Plan Patient with persistent enterococcal bacteremia. Definitive source unclear. Communication with cardiology, evaluated patient will plan on YELITZA tomorrow N.p.o. after midnight Reviewed infectious disease recommendations, continuing ampicillin Continue other medications for chronic medical issues at bedside and updated, daughter on the phone and updated to plan as well Admission and Anticipated Discharge Date Admission Date: October 24, 2024 Subjective Patient is feeling improved. Eager to continue treatments and work towards getting home Physical Exam Physical Exam: Constitutional: Alert, nontoxic in appearance HEENT: Mucous membranes moist. Lungs: Clear to auscultation, decreased, no wheezes rales or rhonchi CV: S1-S2, regular, systolic murmur Abdomen: Soft, nontender, nondistended Extremities: Some right lower extremity edema Neuro: No focal deficits Psych: Cooperative, normal mood Results & Data Results & Data Vital Signs (Past 12 Hours) Vital Signs Temp Pulse Pulse Resp BP Pulse Ox O2 Del Method 10/29/24 07:32 36.5 C 91 H 18 127/79 97 Room Air 10/29/24 07:30 Room Air 10/29/24 07:30 10/29/24 07:00 71 10/29/24 03:02 36.6 C 70 16 130/81 96 Room Air O2 Del Method 10/29/24 07:32 10/29/24 07:30 10/29/24 07:30 Room Air 10/29/24 07:00 10/29/24 03:02 Diagnostic Findings Reviewed imaging, laboratory and diagnostic studies. Pertinent findings as below. Blood cultures from 10/26/2024 continuing to grow Enterococcus WBCs 13.7 Hemoglobin 11.1 Sodium [address] of abdomen and pelvis showed no evidence of abscess or other source of enterococcal infection/bacteremia
[2024-10-29] MEDS: AMPICILLIN 2,000 MG in SODIUM CHLOR 0.9% MINI-B 100 ML IV SCH (17:03)
--- NOTE | 2024-10-30 07:21 | Anesthesiology Consultation ---
Date of Service October 30, 2024 Assessment & Plan Chart Review Chart Review: Acceptable Risk for Surgery and Patient NOT seen in Pre Admission Testing Consults Requested none ASA ASA3 Proposed Anesthesia Anesthesia Type: MAC Risk / Benefits Reviewed With: PT / POA / Parent / Guardian, Accepts Plan and Informed Consent Obtained History Surgery Operation Date: 10/30/24 07:15 Proposed Procedures p Transesophageal Echo w/Anesthesia - Mitchell Michael MD Height/Weight Height: 5 ft 8 in Weight: 81 kg Allergies Allergy/AdvReac Type Severity Reaction Status Date / Time lisinopril Allergy angioedema Verified 10/05/24 12:26 sulfamethoxazole Allergy angioedema Verified 10/05/24 12:26 [From Bactrim] trimethoprim [From Bactrim] Allergy angioedema Verified 10/05/24 12:26 sildenafil AdvReac Intermediate HEADACHE Verified 11/16/21 12:03 Medications Home Medications Medication Instructions Recorded Confirmed Last Taken brimonidine 0.2 %-timolol 0.5 % 1 drp OPR BID 10/19/18 10/24/24 10/04/24 eye drops (Combigan) ibrutinib 140 mg capsule 420 mg PO DAILY chemo 11/16/21 10/24/24 10/05/24 (Imbruvica) atorvastatin 20 mg tablet 20 mg PO QAM 02/15/24 10/24/24 10/04/24 metoprolol succinate 25 mg 25 mg PO BID 04/29/24 10/24/24 10/04/24 tablet,extended release 24 hr apixaban 2.5 mg tablet (Eliquis) 2.5 mg PO AMHS 10/05/24 10/24/24 10/04/24 ferrous sulfate 27 mg iron tablet 27 mg PO DAILY 10/05/24 10/24/24 Unknown hydrochlorothiazide 12.5 mg capsule 12.5 mg PO DAILY 10/05/24 10/24/24 Unknown prednisone 5 mg tablet 5 mg PO UD #45 tabs 10/06/24 10/24/24 Unknown benzonatate 100 mg capsule 100 mg PO TID PRN Cough 10/24/24 10/24/24 Unknown hydroxychloroquine 200 mg tablet 300 mg PO HS 10/24/24 10/24/24 Unknown omeprazole 20 mg capsule,delayed 20 mg PO AMHS 10/24/24 10/24/24 Unknown release Active Medications Generic Name Dose Route Start Last Admin Trade Name Freq PRN Reason Stop Dose Admin Acetaminophen 650 mg 10/24/24 21:20 10/26/24 08:00 Acetaminophen 325 Mg Tab PO 11/23/24 21:19 650 mg Q4H PRN Administration Pain or Fever Apixaban 2.5 mg 10/24/24 21:30 10/29/24 20:16 Apixaban 2.5 Mg Tab PO 11/23/24 21:29 2.5 mg AMHS CHEMO Administration Atorvastatin Calcium 20 mg 10/25/24 09:00 10/29/24 07:31 Atorvastatin 20 Mg Tab PO 11/24/24 08:59 20 mg QAM CHEMO Administration Brimonidine Tartrate 1 drops 10/26/24 21:00 10/29/24 20:18 Brimonidine Tartrate 0.2% 5ml OPR 11/25/24 20:59 1 drops BID CHEMO Administration Hydroxychloroquine Sulfate 300 mg 10/24/24 21:30 10/29/24 20:19 Hydroxychloroquine Sulfate 200 Mg Tab PO 11/23/24 21:29 300 mg HS CHEMO Administration Ampicillin Sodium 2,000 mg/ 100 mls @ 200 mls/hr 10/29/24 18:00 10/30/24 06:54 Sodium Chloride IV 11/10/24 17:59 Infused Q6H CHEMO Infusion Metoprolol Succinate 25 mg 10/24/24 21:30 10/29/24 20:16 Metoprolol Succ 25mg Ext Rel Tab PO 11/23/24 21:29 25 mg BID CHEMO Administration Pantoprazole Sodium 40 mg 10/24/24 21:30 10/29/24 20:20 Pantoprazole 40 Mg Tab PO 11/23/24 21:29 40 mg AMHS CHEMO Administration Prednisone 15 mg 10/25/24 09:00 10/29/24 07:30 Prednisone 5 Mg Tab PO 11/06/24 08:59 15 mg DAILY CHEMO Administration Timolol Maleate 1 drops 10/26/24 21:00 10/29/24 20:17 Timolol Maleate 0.5% Op Soln 5 Ml Btl OPR 11/25/24 20:59 1 drops BID CHEMO Administration Past Medical History Medical History HTN (hypertension) PMR (polymyalgia rheumatica) PAF (paroxysmal atrial fibrillation) Dyslipidemia SSS (sick sinus syndrome) CKD (chronic kidney disease), stage III GERD (gastroesophageal reflux disease) Exercise / Class Metabolic Activity II 4-5 Yardwork/Stairs/Walk up hill Past Family History Family History Other Cancer FHx: alcoholism Past Surgical History Surgical History S/P placement of cardiac pacemaker History of tonsillectomy History of appendectomy Past Anesthesia History No Hx of Anesthesia Complications and No Family Hx of Anesthesia Complications History of PONV No Hx of PONV and No Hx of Motion Sickness Social History Smoking Status: Former smoker Hx Alcohol Use: No Hx Substance Use: No substance use type: does not use Physical Exam Vital Signs Last Vital Signs Temp 37 C 10/30/24 07:10 Pulse 78 10/30/24 07:10 Resp 14 10/30/24 07:10 BP 122/89 10/30/24 07:10 Pulse Ox 97 10/30/24 07:10 O2 Del Method Room Air 10/30/24 07:10 ENMT Mouth: + dentures Thyromental Distance: > or= 3.5 Finger Breadths Mallampati Class: II Neck normal visual inspection Respiratory normal respiratory effort Auscultation: lungs clear to auscultation bilaterally Cardiovascular Rate/Rhythm: regular rate; + abnormal rhythm (afib on monitor) Psychiatric Orientation: alert Testing Laboratory Results 10/29/24 09:11 Urine Color Yellow 10/24/24 17:42 Urine Appearance Clear (Clear) 10/24/24 17:42 Urine pH 6.0 (4.5-7.5) 10/24/24 17:42 Ur Specific [place] 1.011 (1.000-1.030) 10/24/24 17:42 Urine Protein Negative (Negative) 10/24/24 17:42 Urine Glucose (UA) Negative (Negative) 10/24/24 17:42 Urine Ketones Negative (Negative) 10/24/24 17:42 Urine Nitrite Negative (Negative) 10/24/24 17:42 Ur Leukocyte Esterase Negative (Negative) 10/24/24 17:42 10/26/24 19:00 Aerobic Blood Culture - Final Blood Enterococcus faecalis Anaerobic Blood Culture - Final Enterococcus faecalis 10/26/24 18:47 Aerobic Blood Culture - Final Blood Enterococcus faecalis Anaerobic Blood Culture - Final Enterococcus faecalis 10/24/24 Unknown Aerobic Blood Culture - Final Blood Enterococcus faecalis Anaerobic Blood Culture - Final Enterococcus faecalis 10/24/24 20:08 Aerobic Blood Culture - Final Blood Enterococcus faecalis Anaerobic Blood Culture - Final Enterococcus faecalis
[2024-10-30 07:27] LABS: BUN Creatinine Ratio 15.8 (10-20); Calcium 8.3 mg/dl (8.6-10.3); Creatinine Clr Calc Pharmacy 23.4 ml/min; Potassium 4.2 mmol/L (3.5-5.1)
--- NOTE | 2024-10-30 07:54 | Communication Note ---
Date of Service: October 30, 2024 Transesophageal echocardiogram performed this morning without difficulty. No patient complications. No evidence of endocarditis or valvular vegetation, full report to follow
--- NOTE | 2024-10-30 07:57 | Anesthesiology Progress Note ---
Date of Service October 30, 2024 Anesthesia Post Procedure Vital Signs Vital Signs: Temp Pulse Pulse Resp BP Pulse Ox O2 Del Method 10/30/24 07:10 37 C 78 14 122/89 97 Room Air 10/30/24 07:00 73 10/30/24 04:00 36.6 C 68 18 127/81 97 Room Air 10/30/24 00:00 72 10/29/24 23:00 36.6 C 69 18 136/88 98 Room Air 10/29/24 20:00 36.5 C 82 18 144/97 H 97 Room Air 10/29/24 15:22 36.4 C L 82 18 135/90 97 Room Air 10/29/24 14:00 86 Transfer of Care Handoff Completed per policy Notes Mental Status: alert / awake / arousable Patient Amnestic to Procedure: Yes Nausea / Vomiting: adequately controlled Pain: adequately controlled Airway Patency, RR, SpO2: stable & adequate BP & HR: stable & adequate Hydration State: stable & adequate Anesthetic Complications: no major complications apparent
--- NOTE | 2024-10-30 09:48 | Infectious Disease Progress Nt ---
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 He has been going down on his dose of steroids for PMR. Denied cough, chest pain, change in stools. Had some pain under the right axilla. In the ED,temperature 36.8, pulse 86, respiratory rate 14, blood pressure 101/72, O2 sats 95% on room air. Labs: WBC 19.55, hemoglobin 11.7, hematocrit 34.9, sodium 129, BUN 31, creatinine 1.18. COVID/influenza, RSV testing negative. Troponin 19.7. Urinalysis with negative blood, negative nitrites, negative leukocyte esterase. CT head with cerebral atrophy and chronic small vessel disease. Chest x-ray with no acute cardiopulmonary process. Blood cultures growing E faecalis in 4 out of 4 bottles (per BC ID VRE negative. He was started on vancomycin. ID consulted for bacteremia. A transthoracic echocardiogram done 10/26 showed no definite evidence of vegetation but this is a limited study. Aortic valve is mildly calcified. 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 Aortic root is moderately dilated. ID consulted for GPC bacteremia in immunocompromised patient. Microbiology: Blood cultures 10/24 bottles positive for Enterococcus faecalis S amp) MRSA screen 10/25 negative blood cultures 10/26 01/11 + Enterococcus faecalis Blood cultures 10/29 NGTD Antibiotics: Vancomycin 10/25 Amp # High grade Enterococcus faecalis bacteremia # Pacemaker in place # Leukocytosis #PMR on chronic steroids #CLL on Imbruvica ( ibrutinib) Discussion: He presents with weakness. Labs noted for a leukocytosis. Etiology of the Enterococcus faecalis bacteremia is unclear. He denies GI or symptoms. No evidence of skin breakdown, cellulitis, dental abnormalities. He does have an AICD in place. Enterococcal species are common causes of variety of infections including endocarditis, UTIs, bacteremia. He is immunocompromised on chronic steroids and ibrutinib. Given the presence of AICD A TEEwas done on 10/30 to rule out valve vegetations and AICD infection. YELITZA with No visualized vegetations or masses on the valvular structures or pacemaker leads. + Moderately dilated ascending aorta. Moderate aortic root dilation 10/30- WBC 13.75, cr 2.15 Recommendations -Follow up Repeat blood cultures 10/29 -Continue ampicillin but dose changed to 2g IV q8 hrs as crcl 23.4 Since he has high grade bacteremia w/o source or evidence of endocarditis of device infection, anticipate 4 weeks of Ampicillin if repeat BC NGTD. IF positive, then will treat for 6 weeks + /- Ceftriaxone. Discussed with hospitalist. Emilee Thakur MD, MPH Infectious Disease [facility] Call [phone] with question Admission and Anticipated Discharge Date Admission Date: October 24, 2024 Subjective Subsequent visit was provided via telemedicine using two-way real-time interactive telecommunication between the patient and the telemedicine provider. For the duration of the visit, the provider was performing the assessment from a different facility than the patient. This includesuse of bluetooth stethoscope forauscultationperformed by the telepresenter that the telemedicine provider can hear if described in the physical exam. [employer] Project Manager contact information: Please call [facility] Center [phone]. (Phone Number For Physician Use Only) After establishing a telemedicine visit, patient was: Patient was verified with two unique identifiers Time Spent with Patient: Subsequent => 35 min He denies fever, chills or pain at PPM site S/p YELITZA- no vegatations or evidence of PPM infection . Denies or GI symptoms BC +E feacalis in all bottles on 10/24 and 10/26. Repeat BC 10/29 NGTD WBC down to 13.79, cr up 2.15 Daughter and at bedside Physical Exam Physical Exam: Gen- NAD Neck- supple HEENT- ATNC, anicteric sclera Lungs- Non labored breathing, Right chest ecchymosis, Left PPM site w/o s/o infection Abd- soft , nt - no suprapubic or CVA tenderness Ext- BL chronic venous changes on BL LE , eccymosis on BL UE and LE . Neuro- AAO times 3 Psych- Cooperative Results & Data Vital Signs (Past 12 Hours) Vital Signs Temp Pulse Pulse Resp BP Pulse Ox O2 Del Method 10/30/24 08:45 36.5 C 76 105/71 98 Room Air 10/30/24 08:30 36.4 C L 77 18 115/79 98 Room Air 10/30/24 08:10 78 14 107/79 97 Room Air 10/30/24 07:55 80 14 106/77 97 Room Air 10/30/24 07:40 77 14 98/67 L 99 Oxymask 10/30/24 07:15 Room Air 10/30/24 07:10 37 C 78 14 122/89 97 Room Air 10/30/24 07:00 73 10/30/24 04:00 36.6 C 68 18 127/81 97 Room Air 10/30/24 00:00 72 10/29/24 23:00 36.6 C 69 18 136/88 98 Room Air O2 Flow Rate 10/30/24 08:45 10/30/24 08:30 10/30/24 08:10 10/30/24 07:55 10/30/24 07:40 5 10/30/24 07:15 10/30/24 07:10 10/30/24 07:00 10/30/24 04:00 10/30/24 00:00 10/29/24 23:00 Laboratory Results Laboratory Results - last 48 hr 10/29/24 10/30/24 09:11 05:53 WBC 13.79 H RBC 3.60 L Hgb 11.1 L Hct 33.9 L MCV 94.2 MCH 30.8 MCHC 32.7 RDW Std Deviation 48.5 H RDW Coeff of Leonardo 14.1 Plt Count 270 MPV 9.6 Immature Gran % (Auto) 1.6 Neut % (Auto) 70.5 Lymph % (Auto) 21.9 Gregory % (Auto) 4.6 Eos % (Auto) 1.0 Baso % (Auto) 0.4 Neut # (Auto) 9.73 H Lymph # (Auto) 3.02 Gregory # (Auto) 0.63 H Eos # (Auto) 0.14 Baso # (Auto) 0.05 Immature Gran # (Auto) 0.22 H Sodium 135 L 134 L Potassium 4.0 4.2 Chloride 103 101 Carbon Dioxide 26 25 Anion Gap 6 8 BUN 23 34 H Creatinine 1.33 D 2.15 H D Est Cr Clr Drug Dosing 37.9 23.4 eGFR 51.73 29.07 BUN/Creatinine Ratio 17.3 15.8 Glucose 104 H 78 Calcium 8.7 8.3 L Random Vancomycin 5.4 L Diagnostic Findings Microbiology 10/29/24 09:25 Blood Aerobic Blood Culture - Preliminary No growth in Aerobic bottle after 24 hours. 10/29/24 09:25 Blood Anaerobic Blood Culture - Preliminary No growth in Anaerobic bottle after 24 hours. 10/29/24 09:11 Blood Aerobic Blood Culture - Preliminary No growth in Aerobic bottle after 24 hours. 10/29/24 09:11 Blood Anaerobic Blood Culture - Preliminary No growth in Anaerobic bottle after 24 hours. 10/26/24 19:00 Blood Aerobic Blood Culture - Final Enterococcus faecalis 10/26/24 19:00 Blood Anaerobic Blood Culture - Final Enterococcus faecalis 10/26/24 18:47 Blood Aerobic Blood Culture - Final Enterococcus faecalis 10/26/24 18:47 Blood Anaerobic Blood Culture - Final Enterococcus faecalis 10/24/24 Unknown Blood Aerobic Blood Culture - Final Enterococcus faecalis 10/24/24 Unknown Blood Anaerobic Blood Culture - Final Enterococcus faecalis 10/24/24 20:08 Blood Aerobic Blood Culture - Final Enterococcus faecalis 10/24/24 20:08 Blood Anaerobic Blood Culture - Final Enterococcus faecalis Abdomen/Pelvis CT 10/28/24 08:01 EXAM: CT Abdomen and Pelvis With Intravenous Contrast INDICATION: History of CLL. Evaluate for abscess. TECHNIQUE: Axial computed tomography images of the abdomen and pelvis with intravenous contrast. Sagittal and coronal reformatted images were created and reviewed. This CT exam was performed using one or more of the following dose reduction techniques: automated exposure control, adjustment of the mA and/or kV according to patient size, and/or use of iterative reconstruction technique. Oral contrast was administered. COMPARISON: No relevant prior studies available. FINDINGS: Limitations: None. Lung bases: Centrally calcified nodule right lung base consistent with a granuloma or hamartoma measuring 1.8 cm diameter. No further assessment required. Pleural space: There is a very small layering right pleural effusion. Heart: Cardiomegaly noted. Cardiac pacing device noted. Metallic artifact limits assessment of lead integrity. Mediastinum: No abnormality noted. ABDOMEN: Liver: No abnormality noted. Gallbladder and bile ducts: No calcified stones or surrounding fluid. Pancreas: Homogeneous enhancement. No mass, inflammation or ductal dilation. Spleen: No significant abnormality noted. Adrenals: No significant abnormality noted. Kidneys and ureters: Simple left renal cysts. No follow-up of these simple cysts is necessary. Right kidney appears normal. Stomach and bowel: There are bilateral inguinal hernias containing loops of nonobstructed colon. Redundant colon with multiple diverticula. Moderate amounts of stool in the right colon. No inflammation, thickening or obstruction. PELVIS: Appendix: No findings to suggest acute appendicitis. Bladder: No filling defects to suggest mass or large stone. No inflammation. Reproductive: Slightly lobulated appearance of the normal-sized prostate. ABDOMEN and PELVIS: Intraperitoneal space: No free air. No significant fluid collection. Bones/joints: No acute changes. Vasculature: Calcified ectatic aorta. No aneurysm or dissection. Lymph nodes: No pathologically enlarged lymph nodes. IMPRESSION: 1. No intra-abdominal or pelvic abscess. 2. Trace right pleural effusion. 3. Diverticulosis without diverticulitis. 4. Bilateral inguinal hernias containing nonobstructed colon. ACT 112: Negative or not required by law. Electronically signed by Keerthi Alcala 10-28-2024 11:20 AM Medications Administered Home Medications Medication Instructions Recorded Confirmed Last Taken brimonidine 0.2 %-timolol 0.5 % 1 drp OPR BID 10/19/18 10/24/24 10/04/24 eye drops (Combigan) ibrutinib 140 mg capsule 420 mg PO DAILY chemo 11/16/21 10/24/24 10/05/24 (Imbruvica) atorvastatin 20 mg tablet 20 mg PO QAM 02/15/24 10/24/24 10/04/24 metoprolol succinate 25 mg 25 mg PO BID 04/29/24 10/24/24 10/04/24 tablet,extended release 24 hr apixaban 2.5 mg tablet (Eliquis) 2.5 mg PO AMHS 10/05/24 10/24/24 10/04/24 ferrous sulfate 27 mg iron tablet 27 mg PO DAILY 10/05/24 10/24/24 Unknown hydrochlorothiazide 12.5 mg capsule 12.5 mg PO DAILY 10/05/24 10/24/24 Unknown prednisone 5 mg tablet 5 mg PO UD #45 tabs 10/06/24 10/24/24 Unknown benzonatate 100 mg capsule 100 mg PO TID PRN Cough 10/24/24 10/24/24 Unknown hydroxychloroquine 200 mg tablet 300 mg PO HS 10/24/24 10/24/24 Unknown omeprazole 20 mg capsule,delayed 20 mg PO AMHS 10/24/24 10/24/24 Unknown release Active Medications Generic Name Dose Route Start Last Admin Trade Name Freq PRN Reason Stop Dose Admin Acetaminophen 650 mg 10/24/24 21:20 10/26/24 08:00 Acetaminophen 325 Mg Tab PO 11/23/24 21:19 650 mg Q4H PRN Administration Pain or Fever Apixaban 2.5 mg 10/24/24 21:30 10/30/24 10:03 Apixaban 2.5 Mg Tab PO 11/23/24 21:29 2.5 mg AMHS CHEMO Administration Atorvastatin Calcium 20 mg 10/25/24 09:00 10/30/24 10:03 Atorvastatin 20 Mg Tab PO 11/24/24 08:59 20 mg QAM CHEMO Administration Brimonidine Tartrate 1 drops 10/26/24 21:00 10/30/24 10:03 Brimonidine Tartrate 0.2% 5ml OPR 11/25/24 20:59 1 drops BID CHEMO Administration Hydroxychloroquine Sulfate 300 mg 10/24/24 21:30 10/29/24 20:19 Hydroxychloroquine Sulfate 200 Mg Tab PO 11/23/24 21:29 300 mg HS CHEMO Administration Ampicillin Sodium 2,000 mg/ 100 mls @ 200 mls/hr 10/30/24 14:00 10/30/24 13:47 Sodium Chloride IV 11/13/24 13:59 Infused Q8H CHEMO Infusion Metoprolol Succinate 25 mg 10/24/24 21:30 10/30/24 10:03 Metoprolol Succ 25mg Ext Rel Tab PO 11/23/24 21:29 25 mg BID CHEMO Administration Pantoprazole Sodium 40 mg 10/24/24 21:30 10/30/24 10:03 Pantoprazole 40 Mg Tab PO 11/23/24 21:29 40 mg AMHS CHEMO Administration Timolol Maleate 1 drops 10/26/24 21:00 10/30/24 10:03 Timolol Maleate 0.5% Op Soln 5 Ml Btl OPR 11/25/24 20:59 1 drops BID CHEMO Administration (2) Elevated WBC count Leukocytosis type: unspecified Qualified Code(s): D72.829 - Elevated white blood cell count, unspecified
[2024-10-30] MEDS: BENZOCAINE/TETRACAIN/BUTAM 50 APPLN/5 GM CAN EXT ONE (09:59)
[2024-10-30] MEDS: LIDOCAINE 2% 2 ML VIAL/AMP(20MG/ML) INFIL ONE (09:59)
[2024-10-30] MEDS: PROPOFOL IV EMULSION 10 MG/ML 20 ML VIAL IV ONE (09:59)
[2024-10-30] MEDS: AMPICILLIN 2,000 MG in SODIUM CHLOR 0.9% MINI-B 100 ML IV SCH (13:15)
--- NOTE | 2024-10-30 13:22 | Hospitalist Progress Note ---
Date of Service October 30, 2024 Assessment & Plan (1) Bacteremia due to Enterococcus: (2) CLL (chronic lymphocytic leukemia): (3) PMR (polymyalgia rheumatica): (4) PAF (paroxysmal atrial fibrillation): (5) CKD (chronic kidney disease), stage III: (6) History of permanent cardiac pacemaker placement: Plan Communication with infectious disease, phone conversation with Dr. Thakur. Recommends ampicillin for 4 weeks if most recent surveillance blood cultures remain sterile. Continue to monitor blood cultures, if sterile at [address] PICC line and plan for outpatient antibiotics Taper steroids as planned prior to admission Patient with acute elevation of creatinine. Not on any significant nephrotoxins. , patient does carry history of CKD stage III we will continue to monitor renal function Ampicillin dose adjusted for renal function at bedside and aware of plan of care Case management pursuing home antibiotics 52 min spent on care coordination and bedside evaluation communication with specialist Admission and Anticipated Discharge Date Admission Date: October 24, 2024 Subjective Patient tolerated YELITZA. Feels that his strength is starting to slowly return. Physical Exam Physical Exam: Constitutional: Alert, nontoxic HEENT: Mucous membranes moist. Lungs: Clear to auscultation, decreased, no wheezes rales or rhonchi CV: S1-S2, regular, systolic murmur Abdomen: Soft, nontender, nondistended Extremities: No significant edema Neuro: No focal deficits Psych: Cooperative, normal mood Results & Data Results & Data Vital Signs (Past 12 Hours) Vital Signs Temp Pulse Pulse Resp BP Pulse Ox O2 Del Method 10/30/24 12:02 36.3 C L 69 16 104/71 96 Room Air 10/30/24 08:45 36.5 C 76 105/71 98 Room Air 10/30/24 08:30 36.4 C L 77 18 115/79 98 Room Air 10/30/24 08:10 78 14 107/79 97 Room Air 10/30/24 07:55 80 14 106/77 97 Room Air 10/30/24 07:40 77 14 98/67 L 99 Oxymask 10/30/24 07:15 Room Air 10/30/24 07:10 37 C 78 14 122/89 97 Room Air 10/30/24 07:00 73 10/30/24 04:00 36.6 C 68 18 127/81 97 Room Air O2 Flow Rate 10/30/24 12:02 10/30/24 08:45 10/30/24 08:30 10/30/24 08:10 10/30/24 07:55 10/30/24 07:40 5 10/30/24 07:15 10/30/24 07:10 10/30/24 07:00 10/30/24 04:00 Diagnostic Findings Reviewed imaging, laboratory and diagnostic studies. Pertinent findings as below. Surveillance blood cultures from 10/29/2024 no growth at 24 hours Creatinine 2.15, significant increase YELITZA negative for endocarditis or infected pacer wires
[2024-10-31] MEDS: CALCIUM CARBONATE 500 MG CHEWABLE TAB PO PRN (01:55)
[2024-10-31] MEDS: MELATONIN 3 MG TAB PO PRN (01:55)
[2024-10-31 06:14] LABS: Hematocrit (blood only) 28.5 % (42.0-52.0); Hemoglobin 9.4 g/dl (14.0-18.0); Mean Corpuscular Hemoglobin 31.1 pg (25.0-34.0); Mean Corpuscular Volume 94.4 fL (80.0-100.0); Mean Platelet Volume 9.8 fL (9.4-12.4); Platelet Count 221 K/uL (130-400); RDW Coefficient of Variation 14.2 % (11.5-14.5); RDW Standard Deviation 49.1 fL (36.4-46.3); Red Blood Count 3.02 M/uL (4.70-6.10); White Blood Count 13.15 K/ul (4.8-10.8)
[2024-10-31 06:33] LABS: BUN Creatinine Ratio 12.6 (10-20); Calcium 8.2 mg/dl (8.6-10.3); Potassium 4.4 mmol/L (3.5-5.1)
[2024-10-31] MEDS: predniSONE 5 MG TAB PO SCH (08:02)
[2024-10-31] MEDS: SODIUM CHLORIDE 0.9% 500 ML IV SCH (10:00)
--- NOTE | 2024-10-31 10:05 | Nephrology Consultation ---
Date of Consultation October 31, 2024 Assessment & Plan (1) RADHA (acute kidney injury): RADHA which started while in hospital . Creat normal till 10/28 and rising last 2 days steadily to 3+ now. No e/omajor volume depletion and post renal already ruled out. had IV contrast on 10/28 and started rising from that day so most likely the cause. So could be ATN from Contrast or infection/Abx. elderly patient on ABx with bacteremia means despite normal appearing creat still hig risk for RADHA from Contrast. other D/d is Allergic Interstitial nephritis from Ampicillin. One of the more well known Abx to cause this. Post infectious GN is also possible. I did Check urine eos and UA again today + PCR--somewhat helpful for AIN as well as ATN. UA today is definitely much more active than the admission UA--however this can be with both AIN and ATN. Also Check c3 level for Post infectious GN Daily renal labs. Strict I and O. did bladder scan now and was 60 ml so no obstruction NS at 80 /hr today. I will continue to follow. Spoke in detail with at bedside also (2) Bacteremia: E fecalis on Iv Ampicillin for 4 weeks. renal adjust the dose for low GFR. If creat keeps rising may have to consider Alternate Abx like Daptomicin. Ampicillin has been known to cause AIN and that is a possibility. (3) Hyponatremia: Na dropping with RADHA and that is the cause. expected in most pateitns for the na to drop with RADHA. Check urine output as this could also mean increasing fluid retention with RADHA causing low na+ for now give NS at 80 ml/hr. Plan Case complexity high. time spent 62 mins. 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 Admitted 10/24/2024 for bacteremia--E fecalis. Initially vanco but now getting IV Ampicillin to be continued for 4 weeks. Creat was normal up until 10/28/2024 and then got IV contrast with CT abdomen ( kidneys unremarkable no [place]) . Then started rising to 2+ and then today is 3+. he had YELITZA yesterday ( unremarkable) and felt sick since then--nausea, throat pain poor appetite. making urine--normal Colored. UA on admission was normal. Reviewed his Vital Signs chart--No clear episodes of Low BP or low o2 last 4 days. ROS---See HPI. 12 systems reviewed and is otherwise negative Allergies Allergy/AdvReac Type Severity Reaction Status Date / Time lisinopril Allergy angioedema Verified 10/05/24 12:26 sulfamethoxazole Allergy angioedema Verified 10/05/24 12:26 [From Bactrim] trimethoprim [From Bactrim] Allergy angioedema Verified 10/05/24 12:26 sildenafil AdvReac Intermediate HEADACHE Verified 11/16/21 12:03 Home Medications Medication Instructions Recorded Confirmed Type brimonidine 0.2 %-timolol 0.5 % 1 drp OPR BID 10/19/18 10/24/24 History eye drops (Combigan) ibrutinib 140 mg capsule 420 mg PO DAILY chemo 11/16/21 10/24/24 History (Imbruvica) atorvastatin 20 mg tablet 20 mg PO QAM 02/15/24 10/24/24 History metoprolol succinate 25 mg 25 mg PO BID 04/29/24 10/24/24 History tablet,extended release 24 hr apixaban 2.5 mg tablet (Eliquis) 2.5 mg PO AMHS 10/05/24 10/24/24 History ferrous sulfate 27 mg iron tablet 27 mg PO DAILY 10/05/24 10/24/24 History hydrochlorothiazide 12.5 mg capsule 12.5 mg PO DAILY 10/05/24 10/24/24 History prednisone 5 mg tablet 5 mg PO UD #45 tabs 10/06/24 10/24/24 Rx benzonatate 100 mg capsule 100 mg PO TID PRN Cough 10/24/24 10/24/24 History hydroxychloroquine 200 mg tablet 300 mg PO HS 10/24/24 10/24/24 History omeprazole 20 mg capsule,delayed 20 mg PO AMHS 10/24/24 10/24/24 History release Patient History Medical History HTN (hypertension) PMR (polymyalgia rheumatica) PAF (paroxysmal atrial fibrillation) Dyslipidemia SSS (sick sinus syndrome) CKD (chronic kidney disease), stage III GERD (gastroesophageal reflux disease) Surgical History S/P placement of cardiac pacemaker History of tonsillectomy History of appendectomy Family History Other Cancer FHx: alcoholism Social History Smoking Status: Former smoker Hx Alcohol Use: No Hx Substance Use: No Preferred Language: Pashto Communication Ability: Effective Red Leader Required: No Beliefs That Will Affect Care: None Current Living Situation: Spouse Other Information That Helps Us Care for You: No Feels Safe at Home: Yes Safety Concerns: Feels Safe At This Time Assistive Devices: Glasses and Other Assistive Devices Comment: Partial Dentures - Upper, Lower Results & Data Vital Signs (Past 12 Hours) Vital Signs Temp Pulse Pulse Resp BP Pulse Ox O2 Del Method 10/31/24 08:23 36.4 C L 66 18 116/75 96 Room Air 10/31/24 07:25 Room Air 10/31/24 03:27 36.7 C 76 16 109/62 92 Room Air 10/31/24 00:00 76 10/30/24 23:32 36.6 C 74 16 144/88 H 96 Room Air Laboratory Results CBC renal panel UA, CXR and CT and YELITZA
[2024-10-31 10:50] LABS: Appearance Urine Cloudy (Clear); Bacteria Urine Automated None Seen (None Seen); Bilirubin Urine Negative (Negative); Blood Urine 2+ (Negative); Color Urine Yellow; Glucose Urine UA Negative (Negative); Ketones Urine Negative (Negative); Leukocyte Esterase Urine Negative (Negative); Nitrite Urine Negative (Negative); Protein Urine 1+ (Negative); RBC Urine Automated >20 /hpf (0-2); Specific Gravity Urine 1.018 (1.000-1.030); Urobilinogen Urine Negative (Negative); pH Urine 5.5 (4.5-7.5)
[2024-10-31 10:58] LABS: Creatinine Urine Random 78.9 mg/dl; Protein Creatinine Ratio Urine 0.6 (0-0.2); Total Protein Urine Random 44.8 mg/dl (0-11.9)
[2024-10-31 11:03] LABS: Granular Casts Urine Present /lpf (None Prsent)
[2024-10-31 11:04] LABS: Amorphous Sediment Urine Present (None Prsent)
--- NOTE | 2024-10-31 11:58 | Hospitalist Progress Note ---
Date of Service October 31, 2024 Assessment & Plan (1) Bacteremia due to Enterococcus: (2) RADHA (acute kidney injury): (3) CLL (chronic lymphocytic leukemia): (4) PMR (polymyalgia rheumatica): (5) PAF (paroxysmal atrial fibrillation): (6) CKD (chronic kidney disease), stage III: (7) History of permanent cardiac pacemaker placement: Plan Patient with enterococcal bacteremia on ampicillin. Patient now with new issue, acute kidney injury concern for possible AIN due to ampicillin, also possibility of contrast-induced acute kidney injury. Patient and family made aware. Start IV fluids Consult nephrology for acute kidney injury. Communication with infectious disease, aware of acute kidney injury. If ampicillin has to be discontinued would recommend transitioning to daptomycin Patient will need 4 weeks of IV antibiotics from 10/29/2024, date of sterile blood cultures Continue to monitor renal function Okay to Connor Daughter and at bedside Admission and Anticipated Discharge Date Admission Date: October 24, 2024 Subjective Patient feeling better. Concerned about his kidney function. Physical Exam Physical Exam: Constitutional: Alert, nontoxic in appearance HEENT: Mucous membranes moist. Lungs: Clear to auscultation, decreased, no wheezes rales or rhonchi CV: S1-S2, regular Abdomen: Soft, nontender, nondistended Extremities: No significant edema Derm: Numerous ecchymosis over upper extremities Neuro: No focal deficits Psych: Cooperative, normal mood Results & Data Results & Data Vital Signs (Past 12 Hours) Vital Signs Temp Pulse Pulse Resp BP Pulse Ox O2 Del Method 10/31/24 11:37 36.5 C 71 18 115/74 96 Room Air 10/31/24 08:23 36.4 C L 66 18 116/75 96 Room Air 10/31/24 07:25 Room Air 10/31/24 03:27 36.7 C 76 16 109/62 92 Room Air 10/31/24 00:00 76 Laboratory Results Reviewed imaging, laboratory and diagnostic studies. Pertinent findings as below. Surveillance blood cultures from 11/06/2024 no growth at 48 hours WBCs 13.1, improved Hemoglobin 9.4, stable Creatinine 3.42, again significantly increased from yesterday
--- NOTE | 2024-10-31 14:58 | XRay Report ---
XR chest 1V portable CLINICAL HISTORY: Check PICC line placement TECHNIQUE: Single frontal radiograph of the chest was obtained. Comparison: Comparison is made to chest radiograph 10/24/2024 FINDINGS: An implanted pacemaker is seen. A right PICC terminates at the cavoatrial junction. Calcified aortic knob is seen. The lungs are clear. No evidence of pleural effusion or pneumothorax. IMPRESSION: Right PICC terminates at the cavoatrial junction, satisfactory in position. ACT 112: Negative or not required by law. Electronically signed by: Nilo Núñez M.D. 10/31/2024 2:57 PM
--- NOTE | 2024-10-31 15:50 | Infectious Disease Progress Nt ---
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 He has been going down on his dose of steroids for PMR. Denied cough, chest pain, change in stools. Had some pain under the right axilla. In the ED,temperature 36.8, pulse 86, respiratory rate 14, blood pressure 101/72, O2 sats 95% on room air. Labs: WBC 19.55, hemoglobin 11.7, hematocrit 34.9, sodium 129, BUN 31, creatinine 1.18. COVID/influenza, RSV testing negative. Troponin 19.7. Urinalysis with negative blood, negative nitrites, negative leukocyte esterase. CT head with cerebral atrophy and chronic small vessel disease. Chest x-ray with no acute cardiopulmonary process. Blood cultures growing E faecalis in 4 out of 4 bottles (per BC ID VRE negative. He was started on vancomycin. ID consulted for bacteremia. A transthoracic echocardiogram done 10/26 showed no definite evidence of vegetation but this is a limited study. Aortic valve is mildly calcified. 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 Aortic root is moderately dilated. ID consulted for GPC bacteremia in immunocompromised patient. Microbiology: Blood cultures 10/24 bottles positive for Enterococcus faecalis S amp) MRSA screen 10/25 negative blood cultures 10/26 01/11 + Enterococcus faecalis Blood cultures 10/29 NGTD Antibiotics: Vancomycin 10/25 Amp # High grade Enterococcus faecalis bacteremia # Pacemaker in place # Leukocytosis #PMR on chronic steroids #CLL on Imbruvica ( ibrutinib) Discussion: He presents with weakness. Labs noted for a leukocytosis. Etiology of the Enterococcus faecalis bacteremia is unclear. He denies GI or symptoms. No evidence of skin breakdown, cellulitis, dental abnormalities. He does have an AICD in place. Enterococcal species are common causes of variety of infections including endocarditis, UTIs, bacteremia. He is immunocompromised on chronic steroids and ibrutinib. Given the presence of AICD A TEEwas done on 10/30 to rule out valve vegetations and AICD infection. YELITZA with No visualized vegetations or masses on the valvular structures or pacemaker leads. + Moderately dilated ascending aorta. Moderate aortic root dilation 10/30- WBC 13.75, cr 2.15 10/31 - WBC 13.15, cr 3.42 Nephrology following . Concern for ? AIN 2/2 ampicillin vs contrast effect vs post infectious GN. Recommendations -Follow up Repeat blood cultures 10/29 -Continue ampicillin but dose changed to 2g IV q8 hrs---> q12 as cr cl now 16 - If concerns for AIN 2/2 ampicillin , will switch to Daptomcyin Since he has high grade E feacalis bacteremia w/o source or evidence of endocarditis of device infection, anticipate 4 weeks of IV abx if repeat BC NGTD. IF positive, then will treat for 6 weeks + /- Ceftriaxone. Discussed with hospitalist. Emilee Thakur MD, MPH Infectious Disease [facility] Call [phone] with question Admission and Anticipated Discharge Date Admission Date: October 24, 2024 Subjective This patient recommendation is based on a telemedicine consult request which was completed asynchronously through chart review and information provided by the primary physician. The patient was not seen or examined today. The evaluation is consultative in nature and all patient care and treatment decisions can either be accepted or rejected by the patient's primary hospital-based treating physician using their own independent medical judgment for their patient. Time Spent Reviewing Chart: 31+ minutes Renal function worsening. Nephrology following, pending further work up for AIN ( ? 2/2 ampicillin) Results & Data Vital Signs (Past 12 Hours) Vital Signs Temp Pulse Resp BP Pulse Ox O2 Del Method 10/31/24 11:37 36.5 C 71 18 115/74 96 Room Air 10/31/24 08:23 36.4 C L 66 18 116/75 96 Room Air 10/31/24 07:25 Room Air Laboratory Results Short CBC 10/31/24 Range/Units 05:37 WBC 13.15 H (4.8-10.8) K/ul Hgb 9.4 L (14.0-18.0) g/dl Hct 28.5 L (42.0-52.0) % Plt Count 221 (130-400) K/uL BMP 10/31/24 05:37 Sodium 132 L Potassium 4.4 Chloride 99 Carbon Dioxide 24 BUN 43 H Creatinine 3.42 H D Glucose 81 Calcium 8.2 L Urine 10/31/24 Range/Units Unknown Urine Color Yellow Urine Appearance Cloudy A (Clear) Urine pH 5.5 (4.5-7.5) Ur Specific [place] 1.018 (1.000-1.030) Urine Protein 1+ H (Negative) Urine Glucose (UA) Negative (Negative) Diagnostic Findings Microbiology 10/29/24 09:25 Blood Aerobic Blood Culture - Preliminary No growth in Aerobic bottle after 48 hours. 10/29/24 09:25 Blood Anaerobic Blood Culture - Preliminary No growth in Anaerobic bottle after 48 hours. 10/29/24 09:11 Blood Aerobic Blood Culture - Preliminary No growth in Aerobic bottle after 48 hours. 10/29/24 09:11 Blood Anaerobic Blood Culture - Preliminary No growth in Anaerobic bottle after 48 hours. 10/26/24 19:00 Blood Aerobic Blood Culture - Final Enterococcus faecalis 10/26/24 19:00 Blood Anaerobic Blood Culture - Final Enterococcus faecalis 10/26/24 18:47 Blood Aerobic Blood Culture - Final Enterococcus faecalis 10/26/24 18:47 Blood Anaerobic Blood Culture - Final Enterococcus faecalis 10/24/24 Unknown Blood Aerobic Blood Culture - Final Enterococcus faecalis 10/24/24 Unknown Blood Anaerobic Blood Culture - Final Enterococcus faecalis 10/24/24 20:08 Blood Aerobic Blood Culture - Final Enterococcus faecalis 10/24/24 20:08 Blood Anaerobic Blood Culture - Final Enterococcus faecalis Chest X-Ray 10/31/24 14:31 XR chest 1V portable CLINICAL HISTORY: Check PICC line placement TECHNIQUE: Single frontal radiograph of the chest was obtained. Comparison: Comparison is made to chest radiograph 10/24/2024 FINDINGS: An implanted pacemaker is seen. A right PICC terminates at the cavoatrial junction. Calcified aortic knob is seen. The lungs are clear. No evidence of pleural effusion or pneumothorax. IMPRESSION: Right PICC terminates at the cavoatrial junction, satisfactory in position. ACT 112: Negative or not required by law. Electronically signed by: Nilo Núñez M.D. 10/31/2024 2:57 PM Medications Administered Home Medications Medication Instructions Recorded Confirmed Last Taken brimonidine 0.2 %-timolol 0.5 % 1 drp OPR BID 10/19/18 10/24/24 10/04/24 eye drops (Combigan) ibrutinib 140 mg capsule 420 mg PO DAILY chemo 11/16/21 10/24/24 10/05/24 (Imbruvica) atorvastatin 20 mg tablet 20 mg PO QAM 02/15/24 10/24/24 10/04/24 metoprolol succinate 25 mg 25 mg PO BID 04/29/24 10/24/24 10/04/24 tablet,extended release 24 hr apixaban 2.5 mg tablet (Eliquis) 2.5 mg PO AMHS 10/05/24 10/24/24 10/04/24 ferrous sulfate 27 mg iron tablet 27 mg PO DAILY 10/05/24 10/24/24 Unknown hydrochlorothiazide 12.5 mg capsule 12.5 mg PO DAILY 10/05/24 10/24/24 Unknown prednisone 5 mg tablet 5 mg PO UD #45 tabs 10/06/24 10/24/24 Unknown benzonatate 100 mg capsule 100 mg PO TID PRN Cough 10/24/24 10/24/24 Unknown hydroxychloroquine 200 mg tablet 300 mg PO HS 10/24/24 10/24/24 Unknown omeprazole 20 mg capsule,delayed 20 mg PO AMHS 10/24/24 10/24/24 Unknown release Active Medications Generic Name Dose Route Start Last Admin Trade Name Freq PRN Reason Stop Dose Admin Acetaminophen 650 mg 10/24/24 21:20 10/31/24 01:55 Acetaminophen 325 Mg Tab PO 11/23/24 21:19 650 mg Q4H PRN Administration Pain or Fever Apixaban 2.5 mg 10/24/24 21:30 10/31/24 08:01 Apixaban 2.5 Mg Tab PO 11/23/24 21:29 2.5 mg AMHS CHEMO Administration Atorvastatin Calcium 20 mg 10/25/24 09:00 10/31/24 08:01 Atorvastatin 20 Mg Tab PO 11/24/24 08:59 20 mg QAM CHEMO Administration Brimonidine Tartrate 1 drops 10/26/24 21:00 10/31/24 08:01 Brimonidine Tartrate 0.2% 5ml OPR 11/25/24 20:59 1 drops BID CHEMO Administration Calcium Carbonate 500 mg 10/31/24 01:10 10/31/24 01:55 Calcium Carbonate 500 Mg Chewable Tab PO 11/30/24 01:09 500 mg BID PRN Administration Indigestion Hydroxychloroquine Sulfate 300 mg 10/24/24 21:30 10/30/24 20:19 Hydroxychloroquine Sulfate 200 Mg Tab PO 11/23/24 21:29 300 mg HS CHEMO Administration Sodium Chloride 500 mls @ 100 mls/hr 10/31/24 09:45 10/31/24 10:00 Nss IV 10/31/24 19:44 100 mls/hr .Q5H CHEMO Administration Melatonin 3 mg 10/31/24 01:10 10/31/24 01:55 Melatonin 3 Mg Tab PO 11/30/24 01:09 3 mg HS PRN Administration Sleep Metoprolol Succinate 25 mg 10/24/24 21:30 10/31/24 08:02 Metoprolol Succ 25mg Ext Rel Tab PO 11/23/24 21:29 25 mg BID CHEMO Administration Pantoprazole Sodium 40 mg 10/24/24 21:30 10/31/24 08:04 Pantoprazole 40 Mg Tab PO 11/23/24 21:29 40 mg AMHS CHEMO Administration Prednisone 10 mg 10/31/24 09:00 10/31/24 08:02 Prednisone 5 Mg Tab PO 11/05/24 08:59 10 mg DAILY CHEMO Administration Timolol Maleate 1 drops 10/26/24 21:00 10/31/24 08:02 Timolol Maleate 0.5% Op Soln 5 Ml Btl OPR 11/25/24 20:59 1 drops BID CHEMO Administration (2) Elevated WBC count Leukocytosis type: unspecified Qualified Code(s): D72.829 - Elevated white blood cell count, unspecified
[2024-10-31 17:58] LABS: BUN Creatinine Ratio 12.4 (10-20); Calcium 7.9 mg/dl (8.6-10.3); Creatinine Clr Calc Pharmacy 14.1 ml/min; Potassium 4.7 mmol/L (3.5-5.1)
[2024-10-31] MEDS: AMPICILLIN 2,000 MG in SODIUM CHLOR 0.9% MINI-B 100 ML IV SCH (18:02)
[2024-11-01 06:44] LABS: BUN Creatinine Ratio 11.5 (10-20); Calcium 7.9 mg/dl (8.6-10.3); Creatinine Clr Calc Pharmacy 12.6 ml/min; Potassium 4.4 mmol/L (3.5-5.1)
--- NOTE | 2024-11-01 09:47 | Nephrology Progress Note ---
Date of Service November 01, 2024 Assessment & Plan Admission and Anticipated Discharge Date Admission Date: October 24, 2024 Subjective Assessment & Plan (1) RADHA (acute kidney injury): RADHA which started while in hospital . Creat normal till 10/28 and rising last 2 days steadily to 3+ now. No e/omajor volume depletion and post renal already ruled out. had IV contrast on 10/28 and started rising from that day so most likely the cause. So could be ATN from Contrast or infection/Abx. elderly patient on ABx with bacteremia means despite normal appearing creat still high risk for RADHA from Contrast. other D/d is Allergic Interstitial nephritis from Ampicillin. One of the more well known Abx to cause this. Post infectious GN is also possible. I did Check urine eos and UA again today + PCR--somewhat helpful for AIN as well as ATN. UA today is definitely much more active than the admission UA--however this can be with both AIN and ATN. Also Check c3 level for Post infectious GN Daily renal labs. Strict I and O. did bladder scan now and was 60 ml so no obstruction Stop IVF now. Starting to have more edema now creat keeps rising so will stop Ampicillin and start Daptomicin. Ampicillin has been well known to cause AIN. if creat higher tomorrow will raise the prednisone dose to 40 daily to preemptively Treat AIN ( no plan to do renal Biopsy to prove this) I will continue to follow. Spoke in detail with at bedside also (2) Bacteremia: E fecalis on Iv Ampicillin for 4 weeks. renal adjust the dose for low GFR. creat keeps rising so will stop Ampicillin and start Daptomicin. Ampicillin has been well known to cause AIN (3) Hyponatremia: Na dropping with RADHA and that is the cause. expected in most patients for the na to drop with RADHA. S--feels fine. No new Symptoms. Has edema. Making urine. Physical Exam Physical Exam: Constitutional: Alert, nontoxic in appearance HEENT: Mucous membranes moist. Lungs: Clear to auscultation, decreased, no wheezes rales or rhonchi CV: S1-S2, regular, systolic murmur Abdomen: Soft, nontender, nondistended Extremities: 1+ edema with Chronic Skin changes Neuro: No focal deficits Psych: Cooperative, normal mood Results & Data Vital Signs (Past 12 Hours) Vital Signs Temp Pulse Resp BP Pulse Ox O2 Del Method 11/01/24 07:07 36.4 C L 81 20 138/93 97 Room Air
[2024-11-01] MEDS: DAPTOmycin 450 MG in SYRINGE 0 ML IV SCH (10:20)
--- NOTE | 2024-11-01 14:24 | Infectious Disease Progress Nt ---
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 He has been going down on his dose of steroids for PMR. Denied cough, chest pain, change in stools. Had some pain under the right axilla. In the ED,temperature 36.8, pulse 86, respiratory rate 14, blood pressure 101/72, O2 sats 95% on room air. Labs: WBC 19.55, hemoglobin 11.7, hematocrit 34.9, sodium 129, BUN 31, creatinine 1.18. COVID/influenza, RSV testing negative. Troponin 19.7. Urinalysis with negative blood, negative nitrites, negative leukocyte esterase. CT head with cerebral atrophy and chronic small vessel disease. Chest x-ray with no acute cardiopulmonary process. Blood cultures growing E faecalis in 4 out of 4 bottles (per BC ID VRE negative. He was started on vancomycin. ID consulted for bacteremia. A transthoracic echocardiogram done 10/26 showed no definite evidence of vegetation but this is a limited study. Aortic valve is mildly calcified. 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 Aortic root is moderately dilated. ID consulted for GPC bacteremia in immunocompromised patient. Microbiology: Blood cultures 10/24 bottles positive for Enterococcus faecalis S amp) MRSA screen 10/25 negative blood cultures 10/26 01/11 + Enterococcus faecalis Blood cultures 10/29 NGTD Antibiotics: Vancomycin 10/25 Ampicillin 10/27-10/31 Daptomcyin 10/31-ongoing # High grade Enterococcus faecalis bacteremia # Pacemaker in place # Leukocytosis #PMR on chronic steroids #CLL on Imbruvica ( ibrutinib) # RADHA, possibly AIN 2/2 Amp Discussion: He presents with weakness. Labs noted for a leukocytosis. Etiology of the Enterococcus faecalis bacteremia is unclear. He denies GI or symptoms. No evidence of skin breakdown, cellulitis, dental abnormalities. He does have an AICD in place. Enterococcal species are common causes of variety of infections including endocarditis, UTIs, bacteremia. He is immunocompromised on chronic steroids and ibrutinib. Given the presence of AICD A TEEwas done on 10/30 to rule out valve vegetations and AICD infection. YELITZA with No visualized vegetations or masses on the valvular structures or pacemaker leads. + Moderately dilated ascending aorta. Moderate aortic root dilation 10/30- WBC 13.75, cr 2.15 10/31 - WBC 13.15, cr 3.42 Nephrology following . Concern for ? AIN 2/ ampicillin vs contrast effect vs post infectious GN. Picc line was placed . 10/31- Cr 4.34, Ampicillin dced and Dapto started. Recommendations -Follow up Repeat blood cultures 10/29 -Changed Dapto dose to 10mg/Kg IV q48 hrs (cr cl 12) for High grade E feacalis bacteremia, Hold statin if possible - CPK ordered -monitor Cr Since he has high grade E feacalis bacteremia w/o source or evidence of endocarditis of device infection, anticipate 4 weeks of IV abx if repeat BC NGTD. IF positive, then will treat for 6 weeks . Discussed with hospitalist. Emilee Thakur MD, MPH Infectious Disease [facility], ID Division Call [phone] with question Admission and Anticipated Discharge Date Admission Date: October 24, 2024 Subjective This patient recommendation is based on a telemedicine consult request which was completed asynchronously through chart review and information provided by the primary physician. The patient was not seen or examined today. The evaluation is consultative in nature and all patient care and treatment decisions can either be accepted or rejected by the patient's primary hospital-based treating physician using their own independent medical judgment for their patient. Time Spent Reviewing Chart: 21 - 30 minutes Creatinine continues to increase so Ampicillin was discontinued and he was started on Daptomycin Cr 4.34, crcl 12.6 Picc iine in plac BC 10/29 NGTD Results & Data Vital Signs (Past 12 Hours) Vital Signs Temp Pulse Resp BP Pulse Ox O2 Del Method 11/01/24 14:16 36.4 C L 75 16 111/73 98 Room Air 11/01/24 10:08 Room Air 11/01/24 07:07 36.4 C L 81 20 138/93 97 Room Air Laboratory Results Laboratory Results - last 48 hr 10/31/24 10/31/24 10/31/24 05:37 17:24 Unknown WBC 13.15 H RBC 3.02 L Hgb 9.4 L Hct 28.5 L MCV 94.4 MCH 31.1 MCHC 33.0 RDW Std Deviation 49.1 H RDW Coeff of Leonardo 14.2 Plt Count 221 MPV 9.8 Sodium 132 L 129 L Potassium 4.4 4.7 Chloride 99 98 Carbon Dioxide 24 22 Anion Gap 9 9 BUN 43 H 48 H Creatinine 3.42 H D 3.88 H D Est Cr Clr Drug Dosing 16.0 14.1 eGFR 16.66 14.32 BUN/Creatinine Ratio 12.6 12.4 Glucose 81 98 Calcium 8.2 L 7.9 L Urine Color Yellow Urine Appearance Cloudy A Urine pH 5.5 Ur Specific [place] 1.018 Urine Protein 1+ H Urine Glucose (UA) Negative Urine Ketones Negative Urine Blood 2+ H Urine Nitrite Negative Urine Bilirubin Negative Urine Urobilinogen Negative Ur Leukocyte Esterase Negative Urine WBC (Auto) 6-10 H Urine RBC (Auto) >20 H U Hyaline Cast (Auto) 6-10 H U Epithel Cells (Auto) 11-20 H Urine Bacteria (Auto) None Seen Amorphous Sediment Present A Granular Casts Present A Ur Random Creatinine 78.9 U Random Total Protein 44.8 H Protein/Creatinin Ratio 0.6 H 11/01/24 05:38 WBC RBC Hgb Hct MCV MCH MCHC RDW Std Deviation RDW Coeff of Leonardo Plt Count MPV Sodium 131 L Potassium 4.4 Chloride 99 Carbon Dioxide 22 Anion Gap 10 BUN 50 H Creatinine 4.34 H D Est Cr Clr Drug Dosing 12.6 eGFR 12.51 BUN/Creatinine Ratio 11.5 Glucose 76 Calcium 7.9 L Urine Color Urine Appearance Urine pH Ur Specific [place] Urine Protein Urine Glucose (UA) Urine Ketones Urine Blood Urine Nitrite Urine Bilirubin Urine Urobilinogen Ur Leukocyte Esterase Urine WBC (Auto) Urine RBC (Auto) U Hyaline Cast (Auto) U Epithel Cells (Auto) Urine Bacteria (Auto) Amorphous Sediment Granular Casts Ur Random Creatinine U Random Total Protein Protein/Creatinin Ratio Diagnostic Findings Microbiology 10/29/24 09:25 Blood Aerobic Blood Culture - Preliminary No growth in Aerobic bottle after 48 hours. 10/29/24 09:25 Blood Anaerobic Blood Culture - Preliminary No growth in Anaerobic bottle after 48 hours. 10/29/24 09:11 Blood Aerobic Blood Culture - Preliminary No growth in Aerobic bottle after 48 hours. 10/29/24 09:11 Blood Anaerobic Blood Culture - Preliminary No growth in Anaerobic bottle after 48 hours. 10/26/24 19:00 Blood Aerobic Blood Culture - Final Enterococcus faecalis 10/26/24 19:00 Blood Anaerobic Blood Culture - Final Enterococcus faecalis 10/26/24 18:47 Blood Aerobic Blood Culture - Final Enterococcus faecalis 10/26/24 18:47 Blood Anaerobic Blood Culture - Final Enterococcus faecalis 10/24/24 Unknown Blood Aerobic Blood Culture - Final Enterococcus faecalis 10/24/24 Unknown Blood Anaerobic Blood Culture - Final Enterococcus faecalis 10/24/24 20:08 Blood Aerobic Blood Culture - Final Enterococcus faecalis 10/24/24 20:08 Blood Anaerobic Blood Culture - Final Enterococcus faecalis Chest X-Ray 10/31/24 14:31 XR chest 1V portable CLINICAL HISTORY: Check PICC line placement TECHNIQUE: Single frontal radiograph of the chest was obtained. Comparison: Comparison is made to chest radiograph 10/24/2024 FINDINGS: An implanted pacemaker is seen. A right PICC terminates at the cavoatrial junction. Calcified aortic knob is seen. The lungs are clear. No evidence of pleural effusion or pneumothorax. IMPRESSION: Right PICC terminates at the cavoatrial junction, satisfactory in position. ACT 112: Negative or not required by law. Electronically signed by: Nilo Núñez M.D. 10/31/2024 2:57 PM Medications Administered Chest X-Ray 10/31/24 14:31 XR chest 1V portable CLINICAL HISTORY: Check PICC line placement TECHNIQUE: Single frontal radiograph of the chest was obtained. Comparison: Comparison is made to chest radiograph 10/24/2024 FINDINGS: An implanted pacemaker is seen. A right PICC terminates at the cavoatrial junction. Calcified aortic knob is seen. The lungs are clear. No evidence of pleural effusion or pneumothorax. IMPRESSION: Right PICC terminates at the cavoatrial junction, satisfactory in position. ACT 112: Negative or not required by law. Electronically signed by: Nilo Núñez M.D. 10/31/2024 2:57 PM (2) Elevated WBC count Leukocytosis type: unspecified Qualified Code(s): D72.829 - Elevated white blood cell count, unspecified
--- NOTE | 2024-11-01 14:51 | Hospitalist Progress Note ---
Date of Service November 01, 2024 Assessment & Plan (1) Bacteremia due to Enterococcus: (2) RADHA (acute kidney injury): (3) CLL (chronic lymphocytic leukemia): (4) PMR (polymyalgia rheumatica): (5) PAF (paroxysmal atrial fibrillation): (6) CKD (chronic kidney disease), stage III: (7) History of permanent cardiac pacemaker placement: Plan Patient with enterococcal bacteremia initially being treated with ampicillin, concerns for AIN due to the ampicillin with rapidly progressing renal dysfunction Discontinue ampicillin, start daptomycin Communication with nephrology. At this point agrees with change antibiotics, could consider increasing his prednisone dosage to treat AIN will continue to monitor another day Monitor renal function daily is concerned about his prednisone taper. She thought he was to be tapered up by 5 mg every 10 to 14 days. Explained to her that my previous conversation with the pharmacist is at we had gotten information that it was to be tapered every 5 days. At this point she is agreeable to continuing him at the 10 mg dose but tapering every 10 days. Again as noted may need to increase the prednisone if we are going to consider AIN as the etiology for his acute kidney dysfunction. Significant oozing from PICC line. reports that he had a lot of oozing from his pacemaker site previously and had to hold the Eliquis several days. Hold Eliquis and continue pressure on PICC line for hemostasis Reviewed infectious disease consultation, agreeing with daptomycin with concerns of ampicillin AIN Patient and also asking about whether he should be taking his chemotherapy. A oral medication. Reviewed the medication. There is no definite recommendations on dosing for his renal function also recommended be held during infection. Therefore recommended this continue to be held. Admission and Anticipated Discharge Date Admission Date: October 24, 2024 Subjective Patient states he tried to eat a little bit more breakfast today but really has no appetite. Patient has been using fair amount of blood from his PICC line. Physical Exam 2 Physical Exam: Constitutional: Alert, fatigued in appearance HEENT: Mucous membranes moist. Lungs: Clear to auscultation, decreased, no wheezes rales or rhonchi CV: S1-S2, regular Abdomen: Soft, nontender, nondistended Extremities: No significant edema, PICC line right upper extremity Neuro: No focal deficits Psych: Cooperative, normal mood Results & Data Results & Data Vital Signs (Past 12 Hours) Vital Signs Temp Pulse Resp BP Pulse Ox O2 Del Method 11/01/24 14:16 36.4 C L 75 16 111/73 98 Room Air 11/01/24 10:08 Room Air 11/01/24 07:07 36.4 C L 81 20 138/93 97 Room Air Diagnostic Findings Reviewed imaging, laboratory and diagnostic studies. Pertinent findings as below. Sodium 131 Creatinine 4.34, significantly increased Blood culture from 10/29/2024 no growth at 48 hours Urine culture no growth
[2024-11-02 07:19] LABS: Hematocrit (blood only) 28.4 % (42.0-52.0); Hemoglobin 9.6 g/dl (14.0-18.0); Mean Corpuscular Hgb Conc 33.8 g/dL (32.0-36.0); Mean Corpuscular Volume 91.6 fL (80.0-100.0); Mean Platelet Volume 9.7 fL (9.4-12.4); Platelet Count 228 K/uL (130-400); RDW Coefficient of Variation 14.2 % (11.5-14.5); RDW Standard Deviation 47.4 fL (36.4-46.3); White Blood Count 11.08 K/ul (4.8-10.8)
[2024-11-02 07:42] LABS: BUN Creatinine Ratio 11.7 (10-20); Calcium 8.2 mg/dl (8.6-10.3); Creatinine Clr Calc Pharmacy 11.5 ml/min; Potassium 4.2 mmol/L (3.5-5.1)
--- NOTE | 2024-11-02 09:42 | Nephrology Progress Note ---
Date of Service November 02, 2024 Assessment & Plan Admission and Anticipated Discharge Date Admission Date: October 24, 2024 Subjective Assessment & Plan (1) RADHA (acute kidney injury): RADHA which started while in hospital . Creat normal till 10/28 and rising last 2 days steadily to 3+ now. No e/omajor volume depletion and post renal already ruled out. had IV contrast on 10/28 and started rising from that day so most likely the cause. So could be ATN from Contrast or infection/Abx. elderly patient on ABx with bacteremia means despite normal appearing creat still high risk for RADHA from Contrast. other D/d is Allergic Interstitial nephritis from Ampicillin. One of the more well known Abx to cause this. Post infectious GN is also possible. I did Check urine eos and UA again today + PCR--somewhat helpful for AIN as well as ATN. UA today is definitely much more active than the admission UA--however this can be with both AIN and ATN. Also Check c3 level for Post infectious GN Daily renal labs. Strict I and O. did bladder scan now and was 60 ml so no obstruction Starting to have more edema now creat keeps rising so did stop Ampicillin and start Daptomicin. Ampicillin has been well known to cause AIN. Since creat higher today will raise the prednisone dose to 40 daily to preemptively Treat AIN ( no plan to do renal Biopsy to prove this) I will continue to follow. Spoke in detail with at bedside also (2) Bacteremia: E fecalis on Iv Ampicillin for 4 weeks. renal adjust the dose for low GFR. creat keeps rising so did stop Ampicillin and start Daptomicin. Ampicillin has been well known to cause AIN (3) Hyponatremia: Na dropping with RADHA and that is the cause. expected in most patients for the na to drop with RADHA. S--feels fine. No new Symptoms. Has edema. Making urine. Physical Exam Physical Exam: Constitutional: Alert, nontoxic in appearance HEENT: Mucous membranes moist. Lungs: Clear to auscultation, decreased, no wheezes rales or rhonchi CV: S1-S2, regular, systolic murmur Abdomen: Soft, nontender, nondistended Extremities: 1+ edema with Chronic Skin changes Neuro: No focal deficits Psych: Cooperative, normal mood Results & Data Vital Signs (Past 12 Hours) Vital Signs Temp Pulse Resp BP Pulse Ox O2 Del Method 11/02/24 07:28 36.5 C 80 16 126/87 98 Room Air 11/01/24 21:44 Room Air
[2024-11-02] MEDS: predniSONE 20 MG TAB PO SCH (10:07)
--- NOTE | 2024-11-02 11:50 | Hospitalist Progress Note ---
Date of Service November 02, 2024 Assessment & Plan (1) Bacteremia due to Enterococcus: (2) RADHA (acute kidney injury): (3) CLL (chronic lymphocytic leukemia): (4) PMR (polymyalgia rheumatica): (5) PAF (paroxysmal atrial fibrillation): (6) CKD (chronic kidney disease), stage III: (7) History of permanent cardiac pacemaker placement: (8) AIN (acute interstitial nephritis): Plan Patient's kidney dysfunction continues to progress. Suspicion for AIN induced by ampicillin. Continue daptomycin for Enterococcus bacteremia Increase prednisone dose to 40 mg to empirically treat AIN Encourage oral intake Encourage activity as tolerated Bleeding around PICC site has seem to have stopped, will hold Eliquis yet again today and consider restarting tomorrow at bedside updated Continue with other care Admission and Anticipated Discharge Date Admission Date: October 24, 2024 Subjective Patient and confirmed eating a little bit better this morning. A little bit more energy. Bleeding has stopped from PICC line site Physical Exam Physical Exam: Constitutional: Alert, nontoxic, seems a little bit more energized today HEENT: Mucous membranes moist. Lungs: Decreased breath sounds CV: S1-S2, regular Abdomen: Soft, nontender, nondistended Extremities: 2+ pitting edema lower extremities. PICC line in right upper extremity Neuro: No focal deficits, generalized weakness Psych: Cooperative, normal mood Results & Data Results & Data Vital Signs (Past 12 Hours) Vital Signs Temp Pulse Resp BP Pulse Ox O2 Del Method 11/02/24 07:28 36.5 C 80 16 126/87 98 Room Air Diagnostic Findings Reviewed imaging, laboratory and diagnostic studies. Pertinent findings as below. WBCs 11.0 Hemoglobin 9.6, stable proved, Creatinine 4.7
[2024-11-02] MEDS: POLYETHYLENE (MIRALAX) 17 GM PACK PO PRN (13:13)
--- NOTE | 2024-11-02 16:01 | Infectious Disease Progress Nt ---
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 He has been going down on his dose of steroids for PMR. Denied cough, chest pain, change in stools. Had some pain under the right axilla. In the ED,temperature 36.8, pulse 86, respiratory rate 14, blood pressure 101/72, O2 sats 95% on room air. Labs: WBC 19.55, hemoglobin 11.7, hematocrit 34.9, sodium 129, BUN 31, creatinine 1.18. COVID/influenza, RSV testing negative. Troponin 19.7. Urinalysis with negative blood, negative nitrites, negative leukocyte esterase. CT head with cerebral atrophy and chronic small vessel disease. Chest x-ray with no acute cardiopulmonary process. Blood cultures growing E faecalis in 4 out of 4 bottles (per BC ID VRE negative. He was started on vancomycin. ID consulted for bacteremia. A transthoracic echocardiogram done 10/26 showed no definite evidence of vegetation but this is a limited study. Aortic valve is mildly calcified. 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 Aortic root is moderately dilated. ID consulted for GPC bacteremia in immunocompromised patient. Microbiology: Blood cultures 10/24 bottles positive for Enterococcus faecalis S amp) MRSA screen 10/25 negative blood cultures 10/26 01/11 + Enterococcus faecalis Blood cultures 10/29 NGTD Urine culture 10/31 < 1K Antibiotics: Vancomycin 10/25 Ampicillin 10/27-11/01 Daptomycin 11/01-ongoing # High grade Enterococcus faecalis bacteremia # Pacemaker in place # Leukocytosis #PMR on chronic steroids #CLL on Imbruvica ( ibrutinib) # RADHA, possibly AIN 2/2 Ampicillin Discussion: He presents with weakness. Labs noted for a leukocytosis. Etiology of the Enterococcus faecalis bacteremia is unclear. He denies GI or symptoms. No evidence of skin breakdown, cellulitis, dental abnormalities. He does have an AICD in place. Enterococcal species are common causes of variety of infections including endocarditis, UTIs, bacteremia. He is immunocompromised on chronic steroids and ibrutinib. Given the presence of AICD A YELITZA was done on 10/30 to rule out valve vegetations and AICD infection. YELITZA with No visualized vegetations or masses on the valvular structures or pacemaker leads. + Moderately dilated ascending aorta. Moderate aortic root dilation 10/30- WBC 13.75, cr 2.15 10/31 - WBC 13.15, cr 3.42 Nephrology following . Concern for ? AIN 2/2 ampicillin vs contrast effect vs post infectious GN. Picc line was placed . 11/01- Cr 4.34, Ampicillin dced and Dapto started. 11/02 - Creatinine 4.78, WBC 11.08, CpK 15 Recommendations -Follow up Repeat blood cultures 10/29 -Continue Dapto to 10mg/Kg IV q48 hrs (cr cl 12) for High grade E faecalis bacteremia, Hold statin if possible -Monitor Cr Since he has high grade E feacalis bacteremia w/o source or evidence of endocarditis of device infection, anticipate 4 weeks of IV abx ( 10/29-11/26) if repeat BC NGTD. Weekly cbc with diff, BMP, lft and CPK Will need repeat BC post completion of IV abx Will need to set up care with [facility] ID will stop actively following. Please call with questions or if repeat BC + Emilee Thakur MD, MPH Infectious Disease ID Connect [facility], ID Division Call [phone] with question Admission and Anticipated Discharge Date Admission Date: October 24, 2024 Subjective This patient recommendation is based on a telemedicine consult request which was completed asynchronously through chart review and information provided by the primary physician. The patient was not seen or examined today. The evaluation is consultative in nature and all patient care and treatment decisions can either be accepted or rejected by the patient's primary hospital-based treating physician using their own independent medical judgment for their patient. Time Spent Reviewing Chart: 21 - 30 minutes creatinine up to 4.78 Results & Data Vital Signs (Past 12 Hours) Vital Signs Temp Pulse Resp BP Pulse Ox O2 Del Method 11/02/24 15:23 36.6 C 70 16 127/88 97 Room Air 11/02/24 07:28 36.5 C 80 16 126/87 98 Room Air Laboratory Results Short CBC 11/02/24 Range/Units 06:29 WBC 11.08 H (4.8-10.8) K/ul Hgb 9.6 L (14.0-18.0) g/dl Hct 28.4 L (42.0-52.0) % Plt Count 228 (130-400) K/uL BMP 11/02/24 06:29 Sodium 130 L Potassium 4.2 Chloride 98 Carbon Dioxide 22 BUN 56 H Creatinine 4.78 H* D Glucose 80 Calcium 8.2 L Diagnostic Findings Microbiology 10/31/24 Unknown Urine,Clean Catch Urine Culture - Final No growth - less than 1,000 colonies/mL. 10/29/24 09:25 Blood Aerobic Blood Culture - Preliminary No growth in Aerobic bottle after 48 hours. 10/29/24 09:25 Blood Anaerobic Blood Culture - Preliminary No growth in Anaerobic bottle after 48 hours. 10/29/24 09:11 Blood Aerobic Blood Culture - Preliminary No growth in Aerobic bottle after 48 hours. 10/29/24 09:11 Blood Anaerobic Blood Culture - Preliminary No growth in Anaerobic bottle after 48 hours. 10/26/24 19:00 Blood Aerobic Blood Culture - Final Enterococcus faecalis 10/26/24 19:00 Blood Anaerobic Blood Culture - Final Enterococcus faecalis 10/26/24 18:47 Blood Aerobic Blood Culture - Final Enterococcus faecalis 10/26/24 18:47 Blood Anaerobic Blood Culture - Final Enterococcus faecalis 10/24/24 Unknown Blood Aerobic Blood Culture - Final Enterococcus faecalis 10/24/24 Unknown Blood Anaerobic Blood Culture - Final Enterococcus faecalis 10/24/24 20:08 Blood Aerobic Blood Culture - Final Enterococcus faecalis 10/24/24 20:08 Blood Anaerobic Blood Culture - Final Enterococcus faecalis Chest X-Ray 10/31/24 14:31 XR chest 1V portable CLINICAL HISTORY: Check PICC line placement TECHNIQUE: Single frontal radiograph of the chest was obtained. Comparison: Comparison is made to chest radiograph 10/24/2024 FINDINGS: An implanted pacemaker is seen. A right PICC terminates at the cavoatrial junction. Calcified aortic knob is seen. The lungs are clear. No evidence of pleural effusion or pneumothorax. IMPRESSION: Right PICC terminates at the cavoatrial junction, satisfactory in position. ACT 112: Negative or not required by law. Electronically signed by: Nilo Núñez M.D. 10/31/2024 2:57 PM Medications Administered Home Medications Medication Instructions Recorded Confirmed Last Taken brimonidine 0.2 %-timolol 0.5 % 1 drp OPR BID 10/19/18 10/24/24 10/04/24 eye drops (Combigan) ibrutinib 140 mg capsule 420 mg PO DAILY chemo 11/16/21 10/24/24 10/05/24 (Imbruvica) atorvastatin 20 mg tablet 20 mg PO QAM 02/15/24 10/24/24 10/04/24 metoprolol succinate 25 mg 25 mg PO BID 04/29/24 10/24/24 10/04/24 tablet,extended release 24 hr apixaban 2.5 mg tablet (Eliquis) 2.5 mg PO AMHS 10/05/24 10/24/24 10/04/24 ferrous sulfate 27 mg iron tablet 27 mg PO DAILY 10/05/24 10/24/24 Unknown hydrochlorothiazide 12.5 mg capsule 12.5 mg PO DAILY 10/05/24 10/24/24 Unknown prednisone 5 mg tablet 5 mg PO UD #45 tabs 10/06/24 10/24/24 Unknown benzonatate 100 mg capsule 100 mg PO TID PRN Cough 10/24/24 10/24/24 Unknown hydroxychloroquine 200 mg tablet 300 mg PO HS 10/24/24 10/24/24 Unknown omeprazole 20 mg capsule,delayed 20 mg PO AMHS 10/24/24 10/24/24 Unknown release Active Medications Generic Name Dose Route Start Last Admin Trade Name Freq PRN Reason Stop Dose Admin Acetaminophen 650 mg 10/24/24 21:20 10/31/24 01:55 Acetaminophen 325 Mg Tab PO 11/23/24 21:19 650 mg Q4H PRN Administration Pain or Fever Apixaban 2.5 mg 10/24/24 21:30 11/01/24 09:13 Apixaban 2.5 Mg Tab PO 11/23/24 21:29 Not Given [facility] CHEMO Atorvastatin Calcium 20 mg 10/25/24 09:00 11/01/24 08:21 Atorvastatin 20 Mg Tab PO 11/24/24 08:59 20 mg QAM CHEMO Administration Brimonidine Tartrate 1 drops 10/26/24 21:00 11/02/24 08:22 Brimonidine Tartrate 0.2% 5ml OPR 11/25/24 20:59 1 drops BID CHEMO Administration Calcium Carbonate 500 mg 10/31/24 01:10 10/31/24 01:55 Calcium Carbonate 500 Mg Chewable Tab PO 11/30/24 01:09 500 mg BID PRN Administration Indigestion Heparin Sodium (Beef Lung) 5 ml 10/31/24 15:16 11/02/24 06:34 Heparin 10 Unit/Ml 5 Ml Flush FLUSH 11/30/24 15:15 5 ml PRN PRN Administration Flush Hydroxychloroquine Sulfate 300 mg 10/24/24 21:30 11/01/24 20:38 Hydroxychloroquine Sulfate 200 Mg Tab PO 11/23/24 21:29 300 mg HS CHEMO Administration Melatonin 3 mg 10/31/24 01:10 11/01/24 22:00 Melatonin 3 Mg Tab PO 11/30/24 01:09 3 mg HS PRN Administration Sleep Metoprolol Succinate 25 mg 10/24/24 21:30 11/02/24 08:22 Metoprolol Succ 25mg Ext Rel Tab PO 11/23/24 21:29 25 mg BID CHEMO Administration Pantoprazole Sodium 40 mg 10/24/24 21:30 11/02/24 08:22 Pantoprazole 40 Mg Tab PO 11/23/24 21:29 40 mg AMHS CHEMO Administration Polyethylene Glycol 17 gm 10/24/24 21:20 11/02/24 13:13 Polyethylene (Miralax) 17 Gm Pack PO 11/23/24 21:19 17 gm DAILY PRN Administration Constipation Prednisone 40 mg 11/02/24 09:00 11/02/24 10:07 Prednisone 20 Mg Tab PO 12/02/24 08:59 40 mg DAILY CHEMO Administration Timolol Maleate 1 drops 10/26/24 21:00 11/02/24 08:23 Timolol Maleate 0.5% Op Soln 5 Ml Btl OPR 11/25/24 20:59 1 drops BID CHEMO Administration (2) Elevated WBC count Leukocytosis type: unspecified Qualified Code(s): D72.829 - Elevated white blood cell count, unspecified
[2024-11-03 08:22] LABS: BUN Creatinine Ratio 12.6 (10-20); Calcium 8.7 mg/dl (8.6-10.3); Creatinine Clr Calc Pharmacy 13.3 ml/min; Potassium 4.4 mmol/L (3.5-5.1)
[2024-11-03] MEDS: DAPTOmycin 700 MG in SYRINGE 0 ML IV SCH (09:12)
--- NOTE | 2024-11-03 12:09 | Hospitalist Progress Note ---
Date of Service November 03, 2024 Assessment & Plan (1) Bacteremia due to Enterococcus: (2) RADHA (acute kidney injury): (3) CLL (chronic lymphocytic leukemia): (4) PMR (polymyalgia rheumatica): (5) PAF (paroxysmal atrial fibrillation): (6) CKD (chronic kidney disease), stage III: (7) History of permanent cardiac pacemaker placement: (8) AIN (acute interstitial nephritis): Plan Patient seems to be responding to the increased dose of prednisone or his acute kidney injury has plateaued and now seems to be improving Continue prednisone Continue daptomycin Continue to monitor renal function and daughter at bedside updated to patient's condition. Admission and Anticipated Discharge Date Admission Date: October 24, 2024 Subjective Patient feeling significantly improved today. Appetite improved. Up and ambulating in room. Physical Exam Physical Exam: Constitutional: Alert, nontoxic, sitting in chair HEENT: Mucous membranes moist. Lungs: Clear to auscultation, decreased, no wheezes rales or rhonchi CV: S1-S2, regular Abdomen: Soft, nontender, nondistended Extremities: Chronic edema lower extremities Neuro: No focal deficits Psych: Cooperative, normal mood Results & Data Results & Data Vital Signs (Past 12 Hours) Vital Signs Temp Pulse Resp BP Pulse Ox O2 Del Method 11/03/24 08:25 35.9 C L 81 16 127/88 98 Room Air Diagnostic Findings Creatinine 4.12, slightly improved Sodium 131 Rest of electrolytes stable
--- NOTE | 2024-11-03 12:20 | Nephrology Progress Note ---
Date of Service November 03, 2024 Assessment & Plan Admission and Anticipated Discharge Date Admission Date: October 24, 2024 Subjective Subjective Assessment & Plan (1) RADHA (acute kidney injury): RADHA which started while in hospital . Creat normal till 10/28 and then went up to a peak of 4.78 No e/o major volume depletion and post renal already ruled out. had IV contrast on 10/28 and started rising from that day so most likely the cause. So could be ATN from Contrast or infection/Abx. elderly patient on ABx with bacteremia means despite normal appearing creat still high risk for RADHA from Contrast. other D/d is Allergic Interstitial nephritis from Ampicillin. One of the more well known Abx to cause this. Post infectious GN is also possible. I did Check urine eos and UA again today + PCR--somewhat helpful for AIN as well as ATN. UA today is definitely much more active than the admission UA--however this can be with both AIN and ATN. Also Check c3 level for Post infectious GN Daily renal labs. Strict I and O. did bladder scan now and was 60 ml so no obstruction Starting to have more edema now creat keeps rising so did stop Ampicillin and start Daptomicin. Ampicillin has been well known to cause AIN. Currently on prednisone to preemptively Treat AIN ( no plan to do renal Biopsy to prove this) I will continue to follow. Spoke in detail with at bedside also. Creat did come down a bit today to 4.1. Hopefully will come down more. (2) Bacteremia: E fecalis on Iv Ampicillin for 4 weeks. renal adjust the dose for low GFR. creat keeps rising so did stop Ampicillin and start Daptomicin. Ampicillin has been well known to cause AIN (3) Hyponatremia: Na dropping with RADHA and that is the cause. expected in most patients for the na to drop with RADHA. S--feels fine. No new Symptoms. Has edema. Making urine. Physical Exam Physical Exam: Constitutional: Alert, nontoxic in appearance HEENT: Mucous membranes moist. Lungs: Clear to auscultation, decreased, no wheezes rales or rhonchi CV: S1-S2, regular, systolic murmur Abdomen: Soft, nontender, nondistended Extremities: 1+ edema with Chronic Skin changes Neuro: No focal deficits Psych: Cooperative, normal mood Results & Data Vital Signs (Past 12 Hours) Vital Signs Temp Pulse Resp BP Pulse Ox O2 Del Method 11/03/24 08:25 35.9 C L 81 16 127/88 98 Room Air
[2024-11-04 06:28] LABS: BUN Creatinine Ratio 16.1 (10-20); Calcium 8.7 mg/dl (8.6-10.3); Creatinine Clr Calc Pharmacy 17.7 ml/min; Potassium 5.1 mmol/L (3.5-5.1)
--- NOTE | 2024-11-04 11:08 | Nephrology Progress Note ---
Date of Service November 04, 2024 Assessment & Plan Admission and Anticipated Discharge Date Admission Date: October 24, 2024 Subjective Assessment & Plan (1) RADHA (acute kidney injury): RADHA which started while in hospital . Creat normal till 10/28 and then went up to a peak of 4.78 No e/o major volume depletion and post renal already ruled out. had IV contrast on 10/28 and started rising from that day so most likely the cause. So could be ATN from Contrast or infection/Abx. elderly patient on ABx with bacteremia means despite normal appearing creat still high risk for RADHA from Contrast. other D/d is Allergic Interstitial nephritis from Ampicillin. One of the more well known Abx to cause this. Post infectious GN is also possible. I did Check urine eos and UA again today + PCR--somewhat helpful for AIN as well as ATN. UA today is definitely much more active than the admission UA--however this can be with both AIN and ATN. Also Check c3 level for Post infectious GN Daily renal labs. Strict I and O. did bladder scan now and was 60 ml so no obstruction Starting to have more edema now creat kept rising so did stop Ampicillin and start Daptomicin. Ampicillin has been well known to cause AIN. Currently on prednisone to preemptively Treat AIN ( no plan to do renal Biopsy to prove this) I will continue to follow. Spoke in detail with at bedside also. Creat did come down a bit today to 3.1 now. Hopefully will come down more. I am hoping we can change to lower dose prednisone within next 1-2 days depends on the creat trend. was already on Prednisone 15 for PMR pre admission. (2) Bacteremia: E fecalis on Iv Ampicillin for 4 weeks. renal adjust the dose for low GFR. creat keeps rising so did stop Ampicillin and start Daptomicin. Ampicillin has been well known to cause AIN (3) Hyponatremia: Na dropping with RADHA and that is the cause. expected in most patients for the na to drop with RADHA. Now na is rising with recovering RADHA S--feels fine. No new Symptoms. Has edema. Making urine. Physical Exam Physical Exam: Constitutional: Alert, nontoxic in appearance HEENT: Mucous membranes moist. Lungs: b/l wheezing CV: S1-S2, regular, systolic murmur Abdomen: Soft, nontender, nondistended Extremities: 1+ edema with Chronic Skin changes Neuro: No focal deficits Psych: Cooperative, normal mood Results & Data Vital Signs (Past 12 Hours) Vital Signs Temp Pulse Resp BP Pulse Ox O2 Del Method 11/04/24 07:13 36.5 C 70 16 143/82 H 97 Room Air
--- NOTE | 2024-11-04 12:00 | Hospitalist Progress Note ---
Date of Service November 04, 2024 Assessment & Plan (1) Bacteremia due to Enterococcus: (2) AIN (acute interstitial nephritis): Plan: Versus ATN (3) RADHA (acute kidney injury): (4) CLL (chronic lymphocytic leukemia): (5) PMR (polymyalgia rheumatica): (6) PAF (paroxysmal atrial fibrillation): (7) CKD (chronic kidney disease), stage III: (8) History of permanent cardiac pacemaker placement: Plan Patient's acute renal failure is steadily improving. Continue to monitor creatinine Communication with nephrology. Reports if his creatinine continues to improve can rapidly decrease prednisone over the next 2 days to his usual rheumatological dose of 10 mg and then continue taper as directed by rheumatology Continue daptomycin for enterococcal bacteremia. Infectious disease recommending treatments through 11/26/2024 Communication with case management coordinating home antibiotics and health care anticipate possible discharge tomorrow with starting outpatient antibiotics following that Continue to encourage activity in the room Eliquis restarted yesterday, no signs of bleeding from PICC line Extensive education of the patient and family at bedside answering questions about bathing, diet, activity, future dental visits Admission and Anticipated Discharge Date Admission Date: October 24, 2024 Subjective Patient feeling better each day. Eating better. Reports had a good BM. and daughter at bedside pleased with how he is doing Physical Exam Physical Exam: Constitutional: Alert, nontoxic HEENT: Mucous membranes moist. Lungs: Decreased breath sounds, a little rhonchi that clears with cough CV: S1-S2, regular Abdomen: Soft, nontender, nondistended Extremities: Chronic 2+ lower extremity edema stable, PICC line right upper extremity Derm: Chronically thin and frail skin with subcutaneous ecchymosis over entire upper body Neuro: No focal deficits Psych: Cooperative, normal mood Results & Data Results & Data Vital Signs (Past 12 Hours) Vital Signs Temp Pulse Resp BP Pulse Ox O2 Del Method 11/04/24 07:13 36.5 C 70 16 143/82 H 97 Room Air Diagnostic Findings Reviewed imaging, laboratory and diagnostic studies. Pertinent findings as below. Sodium 134 Potassium 5.1 Creatinine 3.1, continuing to improve
[2024-11-04 20:01] VITALS: O2SAT 98
[2024-11-05 06:22] LABS: Hematocrit (blood only) 27.7 % (42.0-52.0); Hemoglobin 9.4 g/dl (14.0-18.0); Mean Corpuscular Hemoglobin 31.8 pg (25.0-34.0); Mean Corpuscular Hgb Conc 33.9 g/dL (32.0-36.0); Mean Corpuscular Volume 93.6 fL (80.0-100.0); Mean Platelet Volume 9.6 fL (9.4-12.4); Platelet Count 229 K/uL (130-400); RDW Coefficient of Variation 14.6 % (11.5-14.5); RDW Standard Deviation 50.3 fL (36.4-46.3); Red Blood Count 2.96 M/uL (4.70-6.10); White Blood Count 13.09 K/ul (4.8-10.8)
[2024-11-05 06:43] LABS: BUN Creatinine Ratio 18.6 (10-20); Creatinine Clr Calc Pharmacy 22.6 ml/min; Potassium 4.8 mmol/L (3.5-5.1)
[2024-11-05 07:22] VITALS: BP 135/94; PULSE 74; RESP 16; TEMP 97.7
--- NOTE | 2024-11-05 08:55 | Hospitalist Progress Note ---
Date of Service November 05, 2024 Assessment & Plan (1) Bacteremia due to Enterococcus: (2) AIN (acute interstitial nephritis): (3) RADHA (acute kidney injury): (4) CLL (chronic lymphocytic leukemia): (5) PMR (polymyalgia rheumatica): (6) PAF (paroxysmal atrial fibrillation): (7) CKD (chronic kidney disease), stage III: (8) History of permanent cardiac pacemaker placement: Plan Mr. 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 Blood cultures 10/24 bottles positive for Enterococcus faecalis S amp) blood cultures 10/26 01/11 + Enterococcus faecalis Blood cultures 10/29 NGTD # High grade Enterococcus faecalis bacteremia # Pacemaker in place, no signs of infectoin #Immunocompromised Etiology of the Enterococcus faecalis bacteremia is unclear. immunocompromised on chronic steroids and ibrutinib. YELITZA 10/30 with no visualized vegetations or masses on the valvular structures or pacemaker leads. + Moderately dilated ascending aorta. 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 On chronic prednisone 5mg daily, however now on prolonged taper. Was started with 20 mg x 14 days, 15 mg x 14 days, 10 mg x 14 days, 7.5 mg x14 days increased steroid dose 2/2 AI continue plaquenil after abx # RADHA, possibly AIN 2/2 Ampicillin ampcillin discontinued 2/2 increase in cr, which is now downtrending on increased steroid temporarily for next 1-2 days, potentially decrease dose to PMR dosing #PAD continue eliquis, renally adjusted at this time continue metoprolol Admission and Anticipated Discharge Date Admission Date: October 24, 2024 Results & Data Results & Data Vital Signs (Past 12 Hours) Vital Signs Temp Pulse Resp BP Pulse Ox O2 Del Method 11/05/24 07:19 36.5 C 74 16 135/94 98 Room Air
[2024-11-05] MEDS ORDERED: predniSONE 5 MG TAB PO SCH (09:00)
--- NOTE | 2024-11-05 11:03 | Nephrology Progress Note ---
Date of Service November 05, 2024 Assessment & Plan (1) RADHA (acute kidney injury): Plan: improving nonoliguric stage 3 RADHA likely multifactorial from ATN (IV con v. infxn/abtx) versus AIN. Creat 1.0-1.02 from admission 10/24 till 10/28 then rising to peak at 4.8 on 11/02; down to 2.5 today from 3.1 yesterday. No e/o major volume depletion and post renal already ruled out; IV contrast on 10/28 and started rising from that day so most likely contributes. other DDx is Allergic Interstitial nephritis from Ampicillin, one of the more well known Abx to cause this. Post infectious GN is also possible. urine eos negative on one specimen; and UA again today + PCR--somewhat helpful for AIN as well as ATN. UA today is definitely much more active than the admission UA--however this can be with both AIN and ATN. Also Check c3 level for Post infectious GN > still pending Daily renal labs. Strict I and O; no e/o urinary retention s/p NS resuscitation as well > currently on higher than his usual pred dose at 50 mg daily x 1 dose on 11/02; then 40 mg daily through today (3 doses ) > plan rapid taper back to customary dose or at least back to 15 mg daily; suggest -30 mg daily starting tomorrow 11/06 & 29 -25 mg daily 11/08 ,11/09, 11/10 -20 mg daily 11/11-2/ -15 mg daily starting 11/13 and further taper as per OP provider managing R hospital d/c appt w/ nephro Dr Julian w/in 10 days of d/c BMP, cbc, serum albumin UACM, ACR to be ordered by neph nurse and dose up to 3 days before neph appt -hold hctz at d/c; OK from neph standpoint to resume other meds including ibrutinib provided OP ordering provider recommends this -continue strict NSAID avoidance Care coordinated w/ Dr Campos re d/c pred taper, f/u labs and appt; we are in agreement (2) Bacteremia: Plan: E fecalis on IV Ampicillin for 4 weeks originally changed as of 11/03 to daptomycin. last + cx 10/26; f/u cxs negative Ampicillin has been known to cause AIN and that is a possibility. (3) Hyponatremia: Plan: improving and mild; attribted to RADHA -bmp daily; no FR currently and none indicated Admission and Anticipated Discharge Date Admission Date: October 24, 2024 Subjective no interval events. eating well past 2 days; creat continues to improve; voiding w/o difficulty. has family who can give abtx at home Review of Systems 2 Review of Systems: All systems reviewed & are unremarkable except as noted in Subjective Physical Exam 2 Constitutional: well developed and well nourished Eyes: EOM intact bilaterally ENMT: Mouth: + dry oral mucous membranes Neck: no nuchal rigidity Respiratory: normal respiratory effort Auscultation: + diminished lung sounds Cardiovascular: Rate/Rhythm: regular rate and regular rhythm Extremities: + edema Gastrointestinal (Abdomen): Inspection/Auscultation: normal bowel sounds P ercussion/Palpation: abdomen soft; abdomen nontender Musculoskeletal: Extremities: strength 5/5 throughout Skin: no rashes, warm and dry Neurologic: jain, fluent speech, no tremor Results & Data Vital Signs (Past 12 Hours) Vital Signs Temp Pulse Resp BP Pulse Ox O2 Del Method 11/05/24 07:20 Room Air 11/05/24 07:19 36.5 C 74 16 135/94 98 Room Air Laboratory Results 11/05/24 05:55 11/05/24 05:55
--- NOTE | 2024-11-05 14:18 | Discharge Summary ---
Discharge Summary Date of Service November 05, 2024 Principal Dx & Hospital Course #1 = Principal Diagnosis (1) Bacteremia due to Enterococcus: (2) AIN (acute interstitial nephritis): (3) RADHA (acute kidney injury): (4) CLL (chronic lymphocytic leukemia): (5) PMR (polymyalgia rheumatica): (6) PAF (paroxysmal atrial fibrillation): (7) CKD (chronic kidney disease), stage III: (8) History of permanent cardiac pacemaker placement: Plan Mr. 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 Blood cultures 10/24 bottles positive for Enterococcus faecalis S amp) blood cultures 10/26 01/11 + Enterococcus faecalis Blood cultures 10/29 NGTD Patient without clear source of infection--YELITZA negative. Discharged home on daptomycin with plans for weekly labs. Course complicated by AIN thought to be 2/2 AIN related to ampicillin. Steroid burst started and ampicillin discontinued with prompt improvement. #High grade Enterococcus faecalis bacteremia #Pacemaker in place, no signs of infectoin #Immunocompromised Etiology of the Enterococcus faecalis bacteremia is unclear. immunocompromised on chronic steroids and ibrutinib. YELITZA 10/30 with no visualized vegetations or masses on the valvular structures or pacemaker leads. + Moderately dilated ascending aorta. 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 On chronic prednisone 5mg daily, however now on prolonged taper. Was started with 20 mg x 14 days, 15 mg x 14 days, 10 mg x 14 days, 7.5 mg x14 days increased steroid dose 2/2 AIN Recommended taper per nephrology: "-30 mg daily starting tomorrow 11/06 & 29 -25 mg daily 11/08 ,11/09, 11/10 -20 mg daily 11/11-23 -15 mg daily starting 11/13 and further taper as per OP provider managing PMR" continue plaquenil # RADHA, possibly AIN 2/2 Ampicillin ampcillin discontinued 2/2 increase in cr, which is now downtrending on increased steroid temporarily for next 1-2 days, potentially decrease dose to PMR dosing "hospital d/c appt w/ nephro Dr Julian w/in 10 days of d/c BMP, cbc, serum albumin UACM, ACR to be ordered by neph nurse and dose up to 3 days before neph appt -hold hctz at d/c; OK from neph standpoint to resume other meds including ibrutinib provided OP ordering provider recommends this -continue strict NSAID avoidance" eliquis reduced to 2.5mg BID #PAD continue eliquis, renally adjusted at this time continue metoprolol Notes For Next Care Provider hospital d/c appt w/ nephro Dr Julian w/in 10 days of d/c BMP, cbc, serum albumin UACM, ACR to be ordered by neph nurse and dose up to 3 days before neph appt -continue strict NSAID avoidance Medication Changes From Visit Prednisone: -30 mg daily starting tomorrow 11/06 & 29 -25 mg daily 11/08 ,11/09, 11/10 -20 mg daily 11/11-11/12 -15 mg daily starting 11/13 and further taper as per OP provider managing PMR Discontinue HCTZ Admission HPI Per Admitting Provider Patient is 89 year old male with PMH HTN, dyslipidemia, CKD III, PMR on chronic prednisone, PAF anticoagulated on Eliquis, SSS s/p pacemaker 02/2024, RBBB, CLL on Imbruvica, Carrington's esophagus, IBS, recently diagnosed 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 History hospitalization 10/05/24-10/06/24 for syncope and thought could be orthostatic hypotension and HCTZ was held upon discharge. Patient states HCTZ was restarted approximately one week ago. st santoro been checking BP at home and BP's been running low and HCTZ held past couple of days. reports this morning was 80/63 and P:84. Per chart review: Seen by rheumatology 10/08/2024 for left hand swelling and right foot/ankle swelling. Prednisone taper was started with 20 mg x 14 days, 15 mg x 14 days, 10 mg x 14 days, 7.5 mg x 14 days then continue on daily 5 mg. 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 Plaquenil was started on 10/17/24. He is on day 3 of 14 of 15mg prednisone daily. States since starting the Plaquenil having much improvement. States left hand drained clear fluid and since left hand edema resolved. States right leg seeping clear fluid and is seeping fluid is slowing down and overall much decreased swelling to right leg/ankle/foot. Patient states had discomfort to right side of chest and axilla this morning and was feeling tired, generalized weak. The chest and axilla pain self resolved but still feeling tired and weak. States last few weeks in the morning has been very tired and weak and as day goes on seems less tired and able to get himself lunch and then eats dinner and feels good by evening. Drinks 64 ounces of water daily. Drinks orange juice in the afternoon. Denies fever/chills, diaphoresis, N/V/D/C, REYES, dizziness, syncope, vision changes, neck pain, CP, SOB, palpitations, cough, sore throat, rhinorrhea, abdominal pain, paresthesias, fall, other rashes, urinary symptoms. Admission Exam Per Admitting Provider General: no acute distress, WDWN elderly male Head: normocephalic, atraumatic Eyes: conjunctiva non-injected, anicteric ENT: normal inspection external ears, nose, mucous membranes mildly dry Neck: supple, trachea midline Lungs: clear, no respiratory distress, no wheezing/rhonchi/rales CV: irregularly irregular, +murmur Abd: normal BS, soft, non-tender Ext: no cyanosis, no calf tenderness; Left hand with ecchymosis dorsal surface without significant edema and without erythema or warmth. LLE: no edema or erythema and ROM intact. RLE: trace edema to ankle and entire foot, no erythema or warmth, No ankle tenderness to palpation (much improved from prior in 09/2024) Neuro: A&O x 3, no focal deficits noted, normal affect Skin: warm, dry Discharge Exam Constitutional WD/WN, vitals as above Respiratory normal respiratory effort, lungs clear to auscultation Cardiovascular RRR, no murmur, no edema Musculoskeletal PICC in right upper extremity Skin chronic violaceous discoloration of BLE Updated Medication List Medication Instructions Recorded Confirmed Type brimonidine 0.2 %-timolol 0.5 % 1 drp OPR BID 10/19/18 10/24/24 History eye drops (Combigan) ibrutinib 140 mg capsule 420 mg PO DAILY chemo 11/16/21 10/24/24 History (Imbruvica) atorvastatin 20 mg tablet 20 mg PO QAM 02/15/24 10/24/24 History metoprolol succinate 25 mg 25 mg PO BID 04/29/24 10/24/24 History tablet,extended release 24 hr apixaban 2.5 mg tablet (Eliquis) 2.5 mg PO AMHS 10/05/24 10/24/24 History ferrous sulfate 27 mg iron tablet 27 mg PO DAILY 10/05/24 10/24/24 History benzonatate 100 mg capsule 100 mg PO TID PRN Cough 10/24/24 10/24/24 History hydroxychloroquine 200 mg tablet 300 mg PO HS 10/24/24 10/24/24 History omeprazole 20 mg capsule,delayed 20 mg PO AMHS 10/24/24 10/24/24 History release daptomycin 700 mg/100 mL in 0.9 % 700 mg (100 mL) IV Q48H 11/04/24 Rx sodium chlor intravenous piggyback prednisone 10 mg tablet 10 mg PO DIRECTED #22 tabs 11/05/24 Rx Hospital Stay Data Consultations 10/24/24 19:00 ED Decision to Admit Stat 10/26/24 15:25 Consult Infectious Diseases Routine 10/31/24 09:37 Consult Nephrology Routine Procedures Performed Operation Date: 10/30/24 07:15 Actual Procedures p Echo Color Flow - Mitchell Michael MD s Echo Doppler Complete - Mitchell Michael MD s Echo Transesophageal - Mitchell Michael MD Diagnostic Imagining Performed 10/24/24 16:22 CT head/brain wo con Stat 10/28/24 08:01 CT Abd and Pelvis [CT abd pelvis oral and IV con] Routine Pending Results Patient Have Any Pending Studies at Discharge: No Discharge Instructions Given to Patient (Per Discharging Provider) You were admitted for weakness and found to have Enterococcus bacteremia, or infection of the blood. You were started on IV antibiotics, which will continue through 11/26/2023 Please hold Ibruvica until told to resume by Home Care Physical Therapist given current infection You were started on higher dosing of prednisone due to kidney injury thought to be related to an antibiotic called "Ampicillin" Starting tomorrow, you will take the following taper: -30 mg daily starting tomorrow 11/06 & 29 -25 mg daily 11/08 ,11/09, 11/10 -20 mg daily 11/11-11/12 -15 mg daily starting 11/13 and further taper as per OP provider managing PMR Follow-up with your providers Total Time Total Time Spent Total Time Spent (In Minutes): 45
[2024-11-10] MEDS ORDERED: predniSONE 5 MG TAB PO SCH (09:00)
== END 2024-11-05 15:25 | disposition home health service (06) | DRG 872 ==
LOC: ED 14:43 → SUATTDRO 19:25 → 2W 19:25 → 3E 10-31 18:25

== ENCOUNTER 2025-05-28 10:11 | Observation (INO) ==
[2025-05-28 11:17] LABS: Hematocrit (blood only) 33.9 % (42.0-52.0); Hemoglobin 11.0 g/dl (14.0-18.0); Immature Granulocytes # (auto) 0.13 K/uL (0.01-0.20); Immature Granulocytes % (auto) 1.4 %; Mean Corpuscular Hemoglobin 32.8 pg (25.0-34.0); Mean Corpuscular Volume 101.2 fL (80.0-100.0); Platelet Count 180 K/uL (130-400); RDW Standard Deviation 57.1 fL (36.4-46.3); Red Blood Count 3.35 M/uL (4.70-6.10); White Blood Count 9.26 K/ul (4.8-10.8)
--- NOTE | 2025-05-28 11:18 | Emergency Department Note ---
Impression & Plan Hematoma of left upper extremity, Fall, Anticoagulated, Infected skin tear, Closed fracture of left proximal humerus ED Provider Note NAME: SIGIFREDO SOLORIO AGE: 89 SEX: M : 1935 ARRIVES VIA: Walk-In INFORMANT: [Patient][] ED PROVIDER(S): [Kendrick Franklin MD] CHIEF COMPLAINT: Worsening wounds HISTORY OF PRESENT ILLNESS: The patient is an 89-year-old male who fell 3 days ago and was seen in this ED. He had multiple skin tears and a fracture to the left humeral head. The patient did see orthopedics yesterday and at the visit, he developed a large hematoma in the area of the left posterior tricep/elbow. He was told to try and keep the area elevated. Today, the patient was seen at the wound center. They were concerned about the hematoma and the wounds themselves. He was referred to the ER. The patient does take Eliquis, he did take his morning dose. Patient has not had fever, no chills. His did notice some increasing skin erythema in the area of the left arm that was not present with his first visit to this ED 3 days ago. PMHx/PSHx/Social Hx: See Below PHYSICAL EXAM: GENERAL: Patient is in no acute distress. HEENT: No acute trauma, normocephalic atraumatic, mucous membranes moist, no nasal congestion. NECK: No stridor, no adenopathy, no meningismus, trachea is midline. LUNGS: Clear to auscultation bilaterally, no wheeze, no rhonchi, breath sounds equal. HEART: Irregular rhythm, normal rate, no obvious murmur. ABDOMEN: Soft, nontender, no peritonitis. EXTREMITIES: No cyanosis. There is edema of the left upper extremity. He has multiple skin tears to the left upper extremity. There is some erythema in the area of the distal left bicep and left proximal forearm with some subtle warmth. Dressings are in place over his skin tears. He has a dressing with skin tears over the left anterior knee. There is some subtle erythema seen. NEUROLOGIC: Oriented x 3, no acute motor or sensory deficits, no focal weakness. SKIN: No jaundice, no diaphoresis. DIFFERENTIAL DIAGNOSIS: Cellulitis, hematoma, coagulopathy, among others. EMERGENCY DEPARTMENT PROCEDURES: MEDICAL DECISION MAKING: There is no leukocytosis. The patient does have a mild anemia however, this is at baseline looking back at previous testing. There is a normal platelet count. No coagulopathy. No renal failure or significant electrolyte abnormality. No concerning liver enzyme elevation. Lactic acid level is not elevated making sepsis less likely. On exam, the patient had some erythema to the skin surrounding the left upper extremity skin tears. He had a fairly large hematoma to the left posterior upper arm. The patient presents with worsening issues from his fall from a few days ago. He was seen by Ortho already, he was seen by the wound center. Things are worsening and I do believe admission is warranted. The patient appears to have some infection starting to the skin tears to the left upper extremity. He has developed a hematoma to the left posterior arm. He is anticoagulated. Given the circumstances, hospitalization/observation is in his best interest. I spoke with the patient and case management, the on-call hospitalist was consulted. Prior/Outside records/notes reviewed: Today's wound center note and yesterday's orthopedic note describing his findings and plan moving forward. Imaging/x-ray results per my interpretation: Chronic Medical/Social conditions affecting care: Advanced age, chronic Eliquis use. Care/Management discussed with: Case management, the on-call hospitalist. Level of care consideration(s): After review of the information above and other included data: --I believe the patient requires escalation of care to admission DISPOSITION: Admission Past Med/Surg History Problem List Closed fracture of left proximal humerus (Acute) Infected skin tear (Acute) Anticoagulated (Acute) Fall (Acute) Hematoma of left upper extremity (Acute) Cellulitis of left elbow Injury of left hip Anticoagulated (Acute) Fall (Acute) Multiple skin tears (Acute) Fracture of proximal humerus (Acute) Wound of right leg (Acute) Hematoma of left lower leg (Acute) Ecchymosis Hematoma of left upper extremity (Acute) AIN (acute interstitial nephritis) RADHA (acute kidney injury) History of permanent cardiac pacemaker placement Bacteremia due to Enterococcus Bacteremia Hyponatremia Generalized weakness Elevated troponin I level (Acute) Abnormal EKG (Acute) Weakness (Acute) Elevated WBC count (Acute) Closed head injury (Acute) Chronic anemia Edema of right foot Syncope (Acute) CLL (chronic lymphocytic leukemia) Right lower lobe pulmonary nodule Right middle lobe pneumonia Hip abductor tendinitis Constipation (Acute) Constipation (Acute) Medical History HTN (hypertension) PMR (polymyalgia rheumatica) PAF (paroxysmal atrial fibrillation) Dyslipidemia SSS (sick sinus syndrome) CKD (chronic kidney disease), stage III GERD (gastroesophageal reflux disease) Surgical History S/P placement of cardiac pacemaker History of tonsillectomy History of appendectomy Family History Other Cancer FHx: alcoholism Social History Smoking Status: Former smoker Second Hand Exposure: No; Do You Dip or Chew Tobacco: No; Hx Alcohol Use: Yes Alcohol type: hard liquor Alcohol Intake Frequency: 2-3 x/Week Hx Substance Use: No Preferred Language: Romanian Communication Ability: Effective Visual Impairment: Severely Limited Hearing Ability: Normal [employer] 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: No Beliefs That Will Affect Care: Sikh Sikh Beliefs: Yazdanism marital status: Current Living Situation: Spouse Feels Safe at Home: Yes Diet: regular Assistive Devices: Contacts, Denture - Upper, Denture - Lower, Glasses and Walker Allergies Allergies Allergy/AdvReac Type Severity Reaction Status Date / Time lisinopril Allergy angioedema Verified 05/28/25 08:37 sulfamethoxazole Allergy angioedema Verified 05/28/25 08:37 [From Bactrim] trimethoprim [From Bactrim] Allergy angioedema Verified 05/28/25 08:37 ampicillin AdvReac Severe Verified 05/28/25 08:37 sildenafil AdvReac Intermediate HEADACHE Verified 05/28/25 08:37 Home Meds Home Medications Medication Instructions Recorded Confirmed brimonidine 0.2 %-timolol 0.5 % 1 drp OPR BID 10/19/18 05/28/25 eye drops (Combigan) ibrutinib 140 mg capsule 0 mg PO DAILY chemo 11/16/21 05/28/25 (Imbruvica) atorvastatin 20 mg tablet 20 mg PO QAM 02/15/24 05/28/25 metoprolol succinate 25 mg 25 mg PO BID 04/29/24 05/28/25 tablet,extended release 24 hr apixaban 2.5 mg tablet (Eliquis) 2.5 mg PO AMHS 10/05/24 05/28/25 hydroxychloroquine 200 mg tablet 300 mg PO HS 10/24/24 05/28/25 omeprazole 20 mg capsule,delayed 20 mg PO AMHS 10/24/24 05/28/25 release docusate sodium 100 mg capsule 100 mg PO DAILY 05/28/25 05/28/25 (Colace) multivitamin with minerals-folic 1 tab PO DAILY 05/28/25 05/28/25 acid 12 mcg chewable tablet (Centrum Adults) prednisone 10 mg tablet 5 mg PO BID 05/28/25 05/28/25 Results & Data (ED) Vital Signs Vital Signs - 24 hr 05/28/25 10:22 05/28/25 11:36 Temperature 36.4 C L Temperature Source Oral Pulse Rate 86 70 Respiratory Rate 18 14 Respiratory Effort / Characteristics Non-Labored Spontaneous Respiratory Depth Normal Blood Pressure 105/71 118/88 Blood Pressure Mean 82 98 Pulse Oximetry 99 97 Oxygen Delivery Method Room Air Room Air Sepsis Recent Fever Within 48 Hours No Sepsis New/Unexplained Change in Mental Status No Sepsis Action Taken by Nursing No Action Required Home Medications Current Medication List: was personally reviewed by me Laboratory Data Attestation: I reviewed the patient's lab results. 05/28/25 11:03 05/28/25 11:03 Lab Results 05/28/25 05/28/25 05/28/25 Range/Units 11:03 11:26 11:27 WBC 9.26 (4.8-10.8) K/ul RBC 3.35 L (4.70-6.10) M/uL Hgb 11.0 L (14.0-18.0) g/dl Hct 33.9 L (42.0-52.0) % MCV 101.2 H (80.0-100.0) fL MCH 32.8 (25.0-34.0) pg MCHC 32.4 (32.0-36.0) g/dL RDW Std Deviation 57.1 H (36.4-46.3) fL RDW Coeff of Leonardo 15.4 H (11.5-14.5) % Plt Count 180 (130-400) K/uL MPV 10.5 (9.4-12.4) fL Immature Gran % (Auto) 1.4 % Neut % (Auto) 69.3 % Lymph % (Auto) 19.5 % Graham % (Auto) 8.6 % Eos % (Auto) 0.6 % Baso % (Auto) 0.6 % Neut # (Auto) 6.40 (1.40-6.50) K/uL Lymph # (Auto) 1.81 (1.20-3.40) K/uL Graham # (Auto) 0.80 H (0.11-0.59) K/uL Eos # (Auto) 0.06 (0.00-0.50) K/uL Baso # (Auto) 0.06 (0.00-0.20) K/uL Immature Gran # (Auto) 0.13 (0.01-0.20) K/uL ESR 38 H (0-20) mm/hr PT 10.0 (9.0-12.0) Seconds INR 0.9 (0.9-1.1) APTT 30 (21-31) Seconds PTT Ratio 1.1 Sodium 136 (136-145) mmol/L Potassium 4.1 (3.5-5.1) mmol/L Chloride 106 (98-107) mmol/L Carbon Dioxide 27 (21-32) mmol/L Anion Gap 3 (3-11) BUN 21 (6-23) mg/dl Creatinine 1.18 (0.6-1.4) mg/dl Est Cr Clr Drug Dosing Not Reportable eGFR 59.72 BUN/Creatinine Ratio 17.8 (10-20) Glucose 114 H (70-99(Fasting)) mg/dl Lactate 1.3 (0.4-2.0) mmol/L Calcium 8.2 L (8.6-10.3) mg/dl Total Bilirubin 0.7 (0.2-1.0) mg/dl AST 17 (13-39) U/L ALT 12 (7-52) U/L Alkaline Phosphatase 40 (34-104) U/L C-Reactive Protein 6.75 H Cancelled (0-0.5) mg/dl Total Protein 5.5 L (6.0-8.3) gm/dl Albumin 3.0 L (3.4-5.0) gm/dl Globulin 2.5 (2.5-4.0) gm/dl Albumin/Globulin Ratio 1.2 (0.9-2) Administered Medications Acetaminophen (Acetaminophen 325 Mg Tab) 650 mg PO Q4H PRN PRN Reason: pain/fever Stop: 06/27/25 14:44 Last Admin: 05/28/25 16:20 Dose: 650 mg Documented By: HRB Doxycycline Hyclate 100 mg/ (Dextrose) 100 mls @ 50 mls/hr IV Q12H CHEMO Stop: 06/04/25 14:59 Last Admin: 05/28/25 16:23 Dose: 50 mls/hr Documented By: HRB Polyethylene Glycol (Polyethylene (Miralax) 17 Gm Pack) 17 gm PO DAILY PRN PRN Reason: Constipation Stop: 06/27/25 14:44 Last Admin: 05/28/25 16:20 Dose: 17 gm Documented By: HRB Discontinued Medications Ceftriaxone Sodium (Rocephin) 2,000 mg in 50 mls @ 100 mls/hr IV NOW STA Stop: 05/28/25 11:22 Last Infusion: 05/28/25 12:06 Dose: Infused Documented By: Admin: 05/28/25 11:36 Dose: 100 mls/hr Documented By: ANT Ioversol (Optiray 320 100ml) 94 ml IV ONCE ONE Stop: 05/28/25 12:48 Last Admin: 05/28/25 12:47 Dose: 94 ml Documented By: KATH Discharge Plan Visit Data Chief Complaint: Wound Stated Complaint: SENT FROM WOUND CLINIC ED Provider: Kendrick Franklin Discharge Problem: Hematoma of left upper extremity, Fall, Anticoagulated, Infected skin tear, Closed fracture of left proximal humerus Patient Disposition: Admitted As Inpatient Condition: Fair Discharge Instructions Interventions: ED Discharge Assessment Last Done: 05/28/25 14:11 Discharge Problem: Fall Qualifiers: Encounter type: subsequent encounter Qualified Code(s): W19.XXXD - Unspecified fall, subsequent encounter Closed fracture of left proximal humerus Qualifiers: Encounter type: initial encounter Fracture morphology: unspecified fracture morphology Qualified Code(s): S42.202A - Unspecified fracture of upper end of left humerus, initial encounter for closed fracture
[2025-05-28 11:35] LABS: Alanine Aminotransferase 12 U/L (7-52); Albumin Globulin Ratio 1.2 (0.9-2); Alkaline Phosphatase 40 U/L (34-104); Anion Gap 3 (3-11); Bilirubin,Total 0.7 mg/dl (0.2-1.0); Blood Urea Nitrogen 21 mg/dl (6-23); Calcium 8.2 mg/dl (8.6-10.3); Carbon Dioxide 27 mmol/L (21-32); Chloride 106 mmol/L (98-107); Globulin 2.5 gm/dl (2.5-4.0); Glucose 114 mg/dl (70-99(Fasting)); Potassium 4.1 mmol/L (3.5-5.1); Sodium 136 mmol/L (136-145); Total Protein 5.5 gm/dl (6.0-8.3)
[2025-05-28] MEDS: cefTRIAXone SODIUM 2,000 MG/50 ML BAG IV STA (11:36)
[2025-05-28 11:45] LABS: INR 0.9 (0.9-1.1); Partial Thromboplastin Time 30 Seconds (21-31); Prothrombin Time 10.0 Seconds (9.0-12.0)
--- NOTE | 2025-05-28 12:13 | History & Physical Report ---
Date of Service May 28, 2025 Assessment & Plan (1) Anticoagulated: (2) Multiple skin tears: (3) Fall: (4) CLL (chronic lymphocytic leukemia): (5) Dyslipidemia: (6) SSS (sick sinus syndrome): (7) CKD (chronic kidney disease), stage III: (8) GERD (gastroesophageal reflux disease): (9) PAF (paroxysmal atrial fibrillation): (10) PMR (polymyalgia rheumatica): (11) HTN (hypertension): Plan 89 yo male with pmhx of polymyalgia rheumatica (on chronic prednisone), hypogam maglobulinemia w/ IgG deficiency, thoracic aortic anurysm, CLL (on Imbruvica), thoracic aortic aneurysm, Barretts esophagus, CKD stage 3a, PFO, IBS, 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 #Uncomplicated Cellulitis of Left Elbow #Left Elbow Hematoma #Acute Wounds -patient has superficial hematoma on left elbow -erythema, tenderness to palpation, edema noted of left arm, worst around elbow and upper arm -CT imaging ordered by this provider shows superficial hematoma and diffuse edema -ESR within age adjusted normal, CRP quite elevated suggestive of infection -no abscesses noted or significant purulent drainage from wounds Plan: -wound care consult, appreciate assistance with case -start ceftriaxone and doxy for uncomplicated nonpurulent cellulitis, will likely need 7 days of therapy -allergic to bactrim and azithromycin per chart review -CT imaging and ESR/CRP was ordered by this provider on admission -hold hydroxychloroquine, Eliquis, Imbruvica for now given infection, hematoma #Paroxysmal Atrial Fibrillation #SSS s/p Pacemaker Placement -hold eliuqis, continue metoprolol succinate #Polymyalgia Rheumatica #IgG Deficiency #Hypogammaglobulinemia #RS3PE Syndrome -hold hydroxychloroquine, continue chronic prednisone #Thoracic Aortic Aneurysm -f/u outpatient #CLL -hold Imbruvica given acute illness #GERD -continue omeprazole #Glaucoma -continue home eye drops I spent a total of 80 minutes in direct patient care, including [id number] time with the patient and/or family, reviewing medical records, ordering and reviewing diagnostic tests, and coordinating care with other healthcare providers. This time includes: history taking, physical examination, medical decision making, counseling, ECG interpretation, imaging interpretation, lab interpretation, orders, and education, excluding time spent in the performance of separately billed services. History of Present Illness Chief Complaint: -left arm hematoma Primary Care Provider: Amos Pastrana MD 89 yo male with pmhx of polymyalgia rheumatica (on chronic prednisone), hypogammaglobulinemia w/ IgG deficiency, thoracic aortic anurysm, CLL (on Imbruvica), thoracic aortic aneurysm, Barretts esophagus, CKD stage 3a, PFO, IBS, RS3PE syndrome (remitting seronegative symeetrical synovitis with pitting edema), HTN, HLD, glaucoma, sick sinus syndrome s/p pacemaker placement who presents for worsening left arm edema and pain. Last admission on 10/2024 for enterococcus bacteremia. In the ED, basic labs ordered, given ceftriaxone for cellulitis, admitted to medicine. Patient seen and examined at bedside. present as well. Patient states that the swelling in left arm has been getting worse over past few days. States the pain and warmth of the left arm around the elbow have gotten worse as well. States the wound care clinic wanted him to get a further evaluation given they feel it is getting worse. Has been having some pain in left knee as well. No other systemic symptoms such as chest pain, SOB, nausea, vomiting. No drug use, remote tobacco use, drinks alcohol nightly, DNRDNI per discussion with patient. Allergies Allergy/AdvReac Type Severity Reaction Status Date / Time lisinopril Allergy angioedema Verified 05/28/25 08:37 sulfamethoxazole Allergy angioedema Verified 05/28/25 08:37 [From Bactrim] trimethoprim [From Bactrim] Allergy angioedema Verified 05/28/25 08:37 ampicillin AdvReac Severe Verified 05/28/25 08:37 sildenafil AdvReac Intermediate HEADACHE Verified 05/28/25 08:37 Home Medications Medication Instructions Recorded Confirmed Type brimonidine 0.2 %-timolol 0.5 % 1 drp OPR BID 10/19/18 05/28/25 History eye drops (Combigan) ibrutinib 140 mg capsule 0 mg PO DAILY chemo 11/16/21 05/28/25 History (Imbruvica) atorvastatin 20 mg tablet 20 mg PO QAM 02/15/24 05/28/25 History metoprolol succinate 25 mg 25 mg PO BID 04/29/24 05/28/25 History tablet,extended release 24 hr apixaban 2.5 mg tablet (Eliquis) 2.5 mg PO AMHS 10/05/24 05/28/25 History hydroxychloroquine 200 mg tablet 300 mg PO HS 10/24/24 05/28/25 History omeprazole 20 mg capsule,delayed 20 mg PO AMHS 10/24/24 05/28/25 History release docusate sodium 100 mg capsule 100 mg PO DAILY 05/28/25 05/28/25 History (Colace) multivitamin with minerals-folic 1 tab PO DAILY 05/28/25 05/28/25 History acid 12 mcg chewable tablet (Centrum Adults) prednisone 10 mg tablet 5 mg PO BID 05/28/25 05/28/25 History Past Med/Surg History Problem List (Updated 05/28/25 @ 15:20 by Sherif Roper MD) Cellulitis of left elbow Injury of left hip Anticoagulated (Acute) Fall (Acute) Multiple skin tears (Acute) Fracture of proximal humerus (Acute) Wound of right leg (Acute) Hematoma of left lower leg (Acute) Ecchymosis Hematoma of left upper extremity (Acute) AIN (acute interstitial nephritis) RADHA (acute kidney injury) History of permanent cardiac pacemaker placement Bacteremia due to Enterococcus Bacteremia Hyponatremia Generalized weakness Elevated troponin I level (Acute) Abnormal EKG (Acute) Weakness (Acute) Elevated WBC count (Acute) Closed head injury (Acute) Chronic anemia Edema of right foot Syncope (Acute) CLL (chronic lymphocytic leukemia) Right lower lobe pulmonary nodule Right middle lobe pneumonia Hip abductor tendinitis Constipation (Acute) Constipation (Acute) Medical History HTN (hypertension) PMR (polymyalgia rheumatica) PAF (paroxysmal atrial fibrillation) Dyslipidemia SSS (sick sinus syndrome) CKD (chronic kidney disease), stage III GERD (gastroesophageal reflux disease) Surgical History S/P placement of cardiac pacemaker History of tonsillectomy History of appendectomy Family History Other Cancer FHx: alcoholism Social History (Updated 05/28/25 @ 08:42 by Amanda Valentine RN) Smoking Status: Former smoker Second Hand Exposure: No; Do You Dip or Chew Tobacco: No; Hx Alcohol Use: Yes Alcohol type: hard liquor Alcohol Intake Frequency: 2-3 x/Week Hx Substance Use: No Preferred Language: Ukrainian Communication Ability: Effective Visual Impairment: Severely Limited Hearing Ability: Normal Grubber Required: No Beliefs That Will Affect Care: Rastafarian Rastafarian Beliefs: Islam marital status: Current Living Situation: Spouse Feels Safe at Home: Yes Diet: regular Assistive Devices: Contacts, Denture - Upper, Denture - Lower, Glasses and Walker Review of Systems Review of Systems: -negative unless listed above Physical Exam Physical Exam: Gen: A&O 3 NAD HEENT: NCAT, EOMI, not icteric. External ears normal. No rhinorrhea. Moist mucous membranes. Neck: Supple, full range of motion, no observable masses, No meningeal sign. Lungs: No Respiratory distress. CV: RRR, no edema. Abdomen: Soft, nondistended, No rebound tenderness. MSK: left arm erythema and edema noted compared to right, noted wounds on elbow, upper arm, edema going into left hand, 1+ pitting edema in legs bilaterally Skin: diffuse ecchymoses on skin Neuro: Normal Gait, Grossly intact. Psych: Appropriate for situation. Results & Data Results & Data Vital Signs (Past 12 Hours) Vital Signs Temp Pulse Pulse Resp BP BP Pulse Ox 05/28/25 12:01 75 20 156/118 H 96 05/28/25 12:00 81 05/28/25 11:36 70 14 118/88 97 05/28/25 10:22 36.4 C L 86 18 105/71 99 O2 Del Method 05/28/25 12:01 Room Air 05/28/25 12:00 05/28/25 11:36 Room Air 05/28/25 10:22 Room Air Laboratory Results -personally reviewed, no leukocytosis, ESR within age adjusted normal limits, CRP elevated to 6.75 suggestive of infection, creatinine better than baseline Code Status & VTE Plan Code Status -DNRDNI discussed with patient VTE Prophylaxis Plan VTE Prophylaxis will be ordered: Yes (3) Fall Encounter type: initial encounter Qualified Code(s): W19.XXXA - Unspecified fall, initial encounter
[2025-05-28] MEDS: OPTIRAY 320 100ml IV ONE (12:47)
--- NOTE | 2025-05-28 13:17 | CT Scan Report ---
CT elbow LT w con CLINICAL HISTORY: concern for active bleed, abscess COMPARISON STUDY: X-ray of 05/25/2025 FINDINGS: There is osteopenia. No fracture or dislocation seen. There is an oval finding in the super ficial subcutaneous tissues posteriorly and medially to the distal humerus measuring 9 cm craniocauda d by 2.4 cm depth by 4 cm in width. It has Hounsfield density of 40 Hounsfield units. It has morpholo gy highly suggestive of superficial hematoma. No active extravasation seen. No other hematoma or absc ess seen at the visualized soft tissues of the elbow. No evidence of osteomyelitis. IMPRESSION: Findings consistent with superficial hematoma at the lower aspect of the upper arm. This finding should be palpable and likely visible. If the clinical finding does not resolve as expected, follow-up imaging would BE suggested. ACT 112: Negative or not required by law. Electronically signed by: Pepe Tong M.D. 05/28/2025 1:15 PM
[2025-05-28] MEDS ORDERED: ONDANSETRON INJ 2 MG/ML 2 ML VIAL IV PRN (14:45)
[2025-05-28] MEDS: ACETAMINOPHEN 325 MG TAB PO PRN (16:20)
[2025-05-28] MEDS: POLYETHYLENE (MIRALAX) 17 GM PACK PO PRN (16:20)
[2025-05-28] MEDS: DOXYCYCLINE HYCLATE 100 MG in DEXTROSE 5% MINI-B 100 ML IV SCH (16:23)
[2025-05-28] MEDS ORDERED: NON-FORMULARY MEDICATION (Brimonidine-Timolol [Combigan] 0.2-0.5 % Drops) OPR SCH (21:00)
[2025-05-28] MEDS: BRIMONIDINE TARTRATE 0.2% 5ML OP SCH (22:03)
[2025-05-28] MEDS: TIMOLOL MALEATE 0.5% OP SOLN 5 ML BTL OP SCH (22:03)
[2025-05-28] MEDS: METOPROLOL SUCC 25MG EXT REL TAB PO SCH (22:03)
[2025-05-29] MEDS: ATORVASTATIN 20 MG TAB PO SCH (07:36)
[2025-05-29 07:37] VITALS: RESP 16; TEMP 97.5; O2SAT 99
[2025-05-29 08:26] VITALS: BP 124/87; PULSE 87
--- NOTE | 2025-05-29 17:52 | Discharge Summary ---
Discharge Summary Date of Service May 29, 2025 Principal Dx & Hospital Course #1 = Principal Diagnosis (1) Anticoagulated: (2) Multiple skin tears: (3) Fall: (4) CLL (chronic lymphocytic leukemia): (5) Dyslipidemia: (6) SSS (sick sinus syndrome): (7) CKD (chronic kidney disease), stage III: (8) GERD (gastroesophageal reflux disease): (9) PAF (paroxysmal atrial fibrillation): (10) PMR (polymyalgia rheumatica): (11) HTN (hypertension): Plan 89 yo male with pmhx of polymyalgia rheumatica (on chronic prednisone), hypogammaglobulinemia w/ IgG deficiency, thoracic aortic anurysm, CLL (on Imbruvica), thoracic aortic aneurysm, Barretts esophagus, CKD stage 3a, PFO, IBS, 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 #Uncomplicated Cellulitis of Left Elbow #Left Elbow Hematoma #Acute Wounds -patient has superficial hematoma on left elbow -erythema, tenderness to palpation, edema noted of left arm, worst around elbow and upper arm -CT imaging ordered by this provider shows superficial hematoma and diffuse edema -ESR within age adjusted normal, CRP quite elevated suggestive of infection -no abscesses noted or significant purulent drainage from wounds Plan: -wound care consult, appreciate assistance with case -start ceftriaxone and doxy for uncomplicated nonpurulent cellulitis, will likely need 7 days of therapy -allergic to bactrim and azithromycin per chart review -CT imaging and ESR/CRP was ordered by this provider on admission -hold hydroxychloroquine, Eliquis, Imbruvica for now given infection, hematoma #Paroxysmal Atrial Fibrillation #SSS s/p Pacemaker Placement -hold eliuqis, continue metoprolol succinate #Polymyalgia Rheumatica #IgG Deficiency #Hypogammaglobulinemia #RS3PE Syndrome -hold hydroxychloroquine, continue chronic prednisone #Thoracic Aortic Aneurysm -f/u outpatient #CLL -hold Imbruvica given acute illness #GERD -continue omeprazole #Glaucoma -continue home eye drops I spent a total of 80 minutes in direct patient care, including [id number] time with the patient and/or family, reviewing medical records, ordering and reviewing diagnostic tests, and coordinating care with other healthcare providers. This time includes: history taking, physical examination, medical decision making, counseling, ECG interpretation, imaging interpretation, lab interpretation, orders, and education, excluding time spent in the performance of separately billed services. Notes For Next Care Provider 89 yo male with pmhx of polymyalgia rheumatica (on chronic prednisone), hypogammaglobulinemia w/ IgG deficiency, thoracic aortic anurysm, CLL (on Imbruvica), thoracic aortic aneurysm, Barretts esophagus, CKD stage 3a, PFO, IBS, RS3PE syndrome (remitting seronegative symeetrical synovitis with pitting edema), HTN, HLD, glaucoma, sick sinus syndrome s/p pacemaker placement who presents for worsening left arm edema and pain. On medicine, given IV abx and wound care consult with significant improvement. On 05/29/2025 patient medically stable for discharge home. To do: [ ] f/u with wound care -Incidental Findings: osteopenia Medication Changes From Visit -cefdinir, doxy Admission HPI Per Admitting Provider 89 yo male with pmhx of polymyalgia rheumatica (on chronic prednisone), hyp ogammaglobulinemia w/ IgG deficiency, thoracic aortic anurysm, CLL (on Imbruvica), thoracic aortic aneurysm, Barretts esophagus, CKD stage 3a, PFO, IBS, RS3PE syndrome (remitting seronegative symeetrical synovitis with pitting edema), HTN, HLD, glaucoma, sick sinus syndrome s/p pacemaker placement who presents for worsening left arm edema and pain. Last admission on 10/2024 for enterococcus bacteremia. In the ED, basic labs ordered, given ceftriaxone for cellulitis, admitted to medicine. Patient seen and examined at bedside. present as well. Patient states that the swelling in left arm has been getting worse over past few days. States the pain and warmth of the left arm around the elbow have gotten worse as well. States the wound care clinic wanted him to get a further evaluation given they feel it is getting worse. Has been having some pain in left knee as well. No other systemic symptoms such as chest pain, SOB, nausea, vomiting. No drug use, remote tobacco use, drinks alcohol nightly, DNRDNI per discussion with patient. Discharge Exam Gen: A&O 3 NAD HEENT: NCAT, EOMI, not icteric. External ears normal. No rhinorrhea. Moist mucous membranes. Neck: Supple, full range of motion, no observable masses, No meningeal sign. Lungs: No Respiratory distress. CV: RRR, no edema. Abdomen: Soft, nondistended, No rebound tenderness. MSK: left arm erythema and edema noted compared to right, noted wounds on elbow, upper arm, edema going into left hand, 1+ pitting edema in legs bilaterally Skin: diffuse ecchymoses on skin Neuro: Normal Gait, Grossly intact. Psych: Appropriate for situation. Updated Medication List Medication Instructions Recorded Confirmed Type brimonidine 0.2 %-timolol 0.5 % 1 drp OPR BID 10/19/18 05/28/25 History eye drops (Combigan) ibrutinib 140 mg capsule 0 mg PO DAILY chemo 11/16/21 05/28/25 History (Imbruvica) atorvastatin 20 mg tablet 20 mg PO QAM 02/15/24 05/28/25 History metoprolol succinate 25 mg 25 mg PO BID 04/29/24 05/28/25 History tablet,extended release 24 hr apixaban 2.5 mg tablet (Eliquis) 2.5 mg PO AMHS 10/05/24 05/28/25 History hydroxychloroquine 200 mg tablet 300 mg PO HS 10/24/24 05/28/25 History omeprazole 20 mg capsule,delayed 20 mg PO AMHS 10/24/24 05/28/25 History release multivitamin with minerals-folic 1 tab PO DAILY 05/28/25 05/28/25 History acid 12 mcg chewable tablet (Centrum Adults) prednisone 10 mg tablet 5 mg PO BID 05/28/25 05/28/25 History cefdinir 300 mg capsule 300 mg PO Q12H 5 days #10 caps 05/29/25 Rx doxycycline hyclate 100 mg capsule 100 mg PO BID 5 days #10 caps 05/29/25 Rx Hospital Stay Data Consultations 05/28/25 11:41 ED Decision to Admit Stat Diagnostic Imagining Performed 05/28/25 12:07 CT elbow LT w con Urgent Pending Results Patient Have Any Pending Studies at Discharge: No Discharge Instructions Given to Patient (Per Discharging Provider) Diagnosis: cellulitis, wounds, hematoma Follow Up: PCP, wound care clinic Incidental Findings: osteopenia 1. Please follow up with PCP and wound care clinic. 2. Please do wound changes as ordered by wound care nurse. 3. Finish course of antibiotics. Total Time Total Time Spent Total Time Spent (In Minutes): I spent a total of 35 minutes in direct patient care, including [id number] time with the patient and/or family, reviewing medical records, ordering and reviewing diagnostic tests, and coordinating care with other healthcare providers. This time includes: history taking, physical examination, medical decision making, counseling, ECG interpretation, imaging interpretation, lab interpretation, orders, and education, excluding time spent in the performance of separately billed services.
== END 2025-05-29 14:00 | disposition home or self-care (01) ==
LOC: ED 10:11 → 3E 10:11